=== PATIENT | male | born 1970 | race Caucasian/White ===

== ENCOUNTER 2024-06-08 23:06 | Inpatient (IN) | payer BC ==
[~2024-06-08] VITALS: Ht 165.1 cm; Wt 70.9 kg
--- NOTE | 2024-06-08 23:37 | ERN ---
General Chief Complaint: Nausea,Vomiting,Diarrhea Stated Complaint: N/V X 2 DAYS, BLACK STOOLS, BLACK GROUND EMESIS Time Seen by MD: 23:20 Source: patient History of Present Illness Initial Comments Patient is a 53-year-old male coming in to be evaluated for multiple complaints. Patient states that he has been having nauseousness shortness of breath and vomiting. These symptoms have been ongoing for several days. He is here for further evaluation. He also states he has not been able to by his medication which include diuretics for his CHF. Allergies: Coded Allergies: No Known Drug Allergies (Unverified Allergy, Unknown, 06/09/24) Home Meds Reported Medications Folic Acid (Folvite) 1 Mg Tab, 1 TAB PO DAILY for 30 Days, #30 TAB 0 Refills 06/09/24 Losartan Potassium (Losartan Potassium) 25 Mg Tablet, 1 TAB PO DAILY for 30 Days, #30 TAB 0 Refills 06/09/24 Carvedilol (Carvedilol) 12.5 Mg Tablet, 1 TAB PO BID for 30 Days, #60 TAB 0 Refills 06/09/24 Furosemide (Furosemide) 40 Mg Tablet, 1 TAB PO DAILY for 30 Days, #30 TAB 0 Refills 06/09/24 ROS Dictation CONSTITUTIONAL: No chills, no fever, no weakness, no diaphoresis, no malaise. HEAD/FACE: No signs of trauma. EENT: No eye pain, no blurred vision, no tearing, no double vision, no ear pain, no ear discharge, no nose pain, no nasal congestion, no throat pain, no throat swelling, no mouth pain. RESPIRATORY: No cough, no orthopnea, SOB, no stridor, no wheezing. CARDIOVASCULAR: No chest pain, no edema, no palpitations, no syncope. GASTROINTESTINAL/ABDOMINAL: No abdominal pain, no constipation, no diarrhea, nausea, vomiting. GENITOURINARY: No abnormal discharge, no dysuria, no frequent urination, no hematuria. No complaints of pain in the genitals. MUSCULOSKELETAL: No back pain, no gout, no joint pain, no joint swelling, no muscle pain, no muscle stiffness, no neck pain. INTEGUMENTARY: No change in color, no change in hair/nails, no dryness, no lesion, no lumps, no rash. NEUROLOGICAL/PSYCH: No anxiety, not depressed, no emotional problem, no headache, no numbness, no pre-existing deficit, no history of seizures, no tremors, no weakness. HEMATOLOGIC/LYMPHATIC: Not anemic, no history of blood clots, no apparent bleeding, no bruising, glands not swollen. All Systems Negative, Except as Noted. Physical Exam Physical Exam Dictation VITAL SIGNS: Reviewed. GENERAL APPEARANCE: Alert, oriented x3, no acute distress, obese. HEAD AND FACE: Non-traumatic. EYES: PERRL, pink conjunctivas, eyelid no trauma, anterior chamber clear. EARS: Pinnas intact and no signs of trauma or erythema. Ear canals clear and no discharge. TMs no erythema. NOSE: No discharge, no bleeding. OROPHARYNX: Mouth normal, teeth no caries, tongue pink. Pharynx clear, no erythema. Tonsils no exudates, no abscesses noted. Mucous membrane moist. NECK: Supple, non-tender, no thyromegaly, no masses, no JVD, no bruits. BREAST: Deferred. CHEST: No tenderness, no crepitus, no paradoxical movement, no retractions. LUNGS: Clear, well-ventilated, symmetric, no rales, no wheezing, no rhonchi, no stridor, good breath sounds bilaterally. HEART: Regular rate, regular rhythm, no murmur, no gallops. VASCULAR: No peripheral edema. ABDOMEN: Soft, positive bowel sounds, nondistended, no guarding, nontender, no rebound, no masses no hepatomegaly, no splenomegaly, no Rodriguez's sign, no hernias. RECTAL: Deferred. GENITAL: Deferred. NEUROLOGICAL: Normal speech, gross motor function intact, gross sensory function intact. MUSCULOSKELETAL: Neck nontender, full range of motion, back nontender, full range of motion. EXTREMITIES: Nontender, full range of motion. SKIN: Color pink, dry, no turgor, no rash, no lacerations, no abrasions, no contusions. LYMPHATICS: Deferred. Results Laboratory and Microbiology Lab and Micro Result Laboratory Tests Test 06/08/24 00:00 06/08/24 23:45 06/09/24 00:23 06/09/24 00:55 Influenza Type A Antigen Negative For Type A Influenza Type B Antigen Negative For Type B SARS-CoV-2, RNA, NAAT NEGATIVE SARS CoV-2 White Blood Count 10.4 K/uL (4.8-10.8) Red Blood Count 3.19 MIL/uL (4.50-6.20) L Hemoglobin 11.6 g/dL (14.0-18.0) L Hematocrit 36.4 % (42-54) L Mean Corpuscular Volume 114.1 fL (79-99) H Mean Corpuscular Hemoglobin 36.4 pg (27.0-33.0) H Mean Corpuscular Hemoglobin Concent 31.9 g/dL (32.0-36.0) L Red Cell Distribution Width 11.9 % (11.0-15.5) Platelet Count 96 K/uL (130-400) L Mean Platelet Volume 10.7 fL (7.5-10.5) H Immature Granulocyte % (Auto) 1.4 % (0-1) H Neutrophils (%) (Auto) 85.6 % (40.0-77.0) H Lymphocytes (%) (Auto) 4.3 % (21.0-51.0) L Monocytes (%) (Auto) 8.1 % (3.0-13.0) Eosinophils (%) (Auto) 0.2 % (0.0-8.0) Basophils (%) (Auto) 0.4 % (0.0-5.0) Neutrophils # (Auto) 8.9 K/uL (1.8-7.7) H Lymphocytes # (Auto) 0.5 K/uL (1.0-4.8) L Monocytes # (Auto) 0.9 K/uL (0.1-1.0) Eosinophils # (Auto) 0.02 K/uL (0.00-0.70) Basophils # (Auto) 0.04 K/uL (0.00-0.20) Absolute Immature Granulocyte (auto 0.15 K/uL (0-1) Nucleated Red Blood Cells 0.0 % (0.0-0.19) White Cell Morphology Comment See comments Prothrombin Time 13.2 SEC (9.6-11.6) H Prothromb Time International Ratio 1.20 (0.85-1.15) H Activated Partial Thromboplast Time 31.3 SEC (26.3-35.5) Sodium Level 138 mmol/L (136-145) Potassium Level 3.8 mmol/L (3.5-5.1) Chloride Level 95 mmol/L (101-111) L Carbon Dioxide Level 7 mmol/L (21-32) *L Blood Urea Nitrogen 9 mg/dL (7-18) Creatinine 1.2 mg/dL (0.5-1.3) Glomerular Filtration Rate Calc 71 mL/min (>90) Random Glucose 139 mg/dL (70-105) H Total Calcium 7.7 mg/dL (8.5-10.1) L Magnesium Level 1.50 mg/dL (1.80-2.40) L Total Creatine Kinase 172 U/L (21-232) Troponin I High Sensitivity 441 ng/L (4-75) *H B-Type Natriuretic Peptide 957 pg/mL (0-100) H Blood Gas Specimen Type Arterial Arterial Blood pH 7.133 (7.350-7.450) Arterial Blood Partial Pressure CO2 < 15 mmHg (35-48) *L Arterial Blood Partial Pressure O2 255.8 mmHg (83.0-108.0) H Arterial Blood HCO3 4.0 mmol/L (21.0-28.0) L Arterial Blood Oxygen Saturation 99.4 % (94.0-98.0) H Arterial Blood Base Excess -22.8 mmol/L (-2.0-3.0) L Hemoglobin (Blood Gas) 12.1 g/dL (13.5-17.5) L Sodium (Blood Gas) 135 MMOL/L (136-145) L Bedside Potassium (Blood Gas) 3.8 MMOL/L (3.4-4.5) Bedside Chloride (Blood Gas) 103 MMOL/L (98-107) Bedside Glucose (Blood Gas) 128 MG/DL (65-95) H Bedside Ionized Calcium (Blood Gas) 1.14 MMOL/L (1.15-1.33) L Bedside Lactic Acid (Blood Gas) 2.46 MMOL/L (0.36-0.75) H Blood Gas Temperature 37.0 CELSIUS (35.5-37.0) Blood Gas Flow-by 25.00 L/min (0.00-15.00) H Blood Gas Vent Mode NRB (ROOM AIR) FiO2 100.0 % Blood Gas Specimen Comment RR RN Urine Color LIGHT-YELLOW (YELLOW) Urine Appearance CLEAR (CLEAR) Urine pH 6.0 (5.0-8.0) Urine Specific [place] 1.012 (1.001-1.031) Urine Protein 50 mg/dL (NEGATIVE) H Urine Glucose (UA) NEGATIVE mg/dL (NEGATIVE) Urine Ketones 150 mg/dL (NEGATIVE) H Urine Occult Blood MODERATE (NEGATIVE) H Urine Nitrate NEGATIVE (NEGATIVE) Urine Bilirubin NEGATIVE mg/dL (NEGATIVE) Urine Urobilinogen 0.2 mg/dL (0.2-1.0) Urine Leukocyte Esterase NEGATIVE Melchor/uL Urine RBC 2-5 /HPF (0-1) H Urine WBC 6-10 /HPF (0-1) H Urine Bacteria FEW /HPF (None Seen) Urine Hyaline Casts 2-5 /LPF (0-1 /LPF) H Urine Opiates Screen NEGATIVE (NEGATIVE) Urine Barbiturates Screen NEGATIVE (NEGATIVE) Urine Phencyclidine Screen NEGATIVE (NEGATIVE) Urine Amphetamines Screen NEGATIVE (NEGATIVE) Urine Benzodiazepines Screen NEGATIVE (NEGATIVE) Urine Cocaine Screen NEGATIVE (NEGATIVE) Urine Marijuana (THC) Screen POSITIVE (NEGATIVE) H Test 06/09/24 01:06 06/09/24 01:39 06/09/24 02:11 Blood Gas Specimen Type Arterial Arterial Arterial Blood pH 7.164 (7.350-7.450) 7.147 (7.350-7.450) Arterial Blood Partial Pressure CO2 < 15 mmHg (35-48) *L < 15 mmHg (35-48) *L Arterial Blood Partial Pressure O2 362.1 mmHg (83.0-108.0) 377.9 mmHg (83.0-108.0) Arterial Blood HCO3 5.2 mmol/L (21.0-28.0) L 5.0 mmol/L (21.0-28.0) L Arterial Blood Oxygen Saturation 99.6 % (94.0-98.0) H 99.6 % (94.0-98.0) H Arterial Blood Base Excess -21.2 mmol/L (-2.0-3.0) L -21.7 mmol/L (-2.0-3.0) L Hemoglobin (Blood Gas) 12.1 g/dL (13.5-17.5) L 12.0 g/dL (13.5-17.5) L Sodium (Blood Gas) 138 MMOL/L (136-145) 137 MMOL/L (136-145) Bedside Potassium (Blood Gas) 3.7 MMOL/L (3.4-4.5) 3.6 MMOL/L (3.4-4.5) Bedside Chloride (Blood Gas) 102 MMOL/L (98-107) 101 MMOL/L (98-107) Bedside Glucose (Blood Gas) 140 MG/DL (65-95) H 163 MG/DL (65-95) H Bedside Ionized Calcium (Blood Gas) 1.11 MMOL/L (1.15-1.33) L 1.12 MMOL/L (1.15-1.33) L Bedside Lactic Acid (Blood Gas) 2.72 MMOL/L (0.36-0.75) H 2.38 MMOL/L (0.36-0.75) H Blood Gas Temperature 37.0 CELSIUS (35.5-37.0) 37.0 CELSIUS (35.5-37.0) Blood Gas Respiration Rate 19.0 min. 18.0 min. Blood Gas Vent Mode BIPAP 10,5 (ROOM AIR) BIPAP 10,5 (ROOM AIR) FiO2 70.0 % 70.0 % Blood Gas Specimen Comment RR RN RR RN Troponin I High Sensitivity 600 ng/L (4-75) *H Salicylates Level < 2.8 mg/dL (2.8-20.0) L Labs Reviewed?: Yes EKG/XRAY/US/CT/MRI EKG Comment 06/08/2024 time 11:38 p.m. Ventricular rate 130 Sinus tachycardia [place] [address] wave elevation or depression X-RAY Comment Chest [id number] infiltrates bilaterally MDM MDM: Differential diagnosis: Sepsis, ACS, acidosis, metabolic acidosis, on BiPAP, Rationale: Tests considered and ordered secondary to shared decision making include: labs, ECG and radiology Previous outside records reviewed: Old ER visits. Risk of complication and/or morbidity or mortality of patient management: None Medications-Per medication reconciliation Need for hospitalization: Patient does meet criteria for hospitalization. Need for emergency major/minor surgery: No There are no social concerns with this patient. Prescription drug management Prescriptions will include symptomatic care Patient's prior external medical records from other ER visits were reviewed by me as indicated. Prior testing and results from previous visits were reviewed. Prior tests were taken into account with medical decision making and resource utilization, independent historian/historians were used to obtain complete me dical history. I independently interpreted the test that were performed, results were reviewed by me and considered findings on radiology if ordered. Medical management and examination interpretation discussions were had by me with other qualified healthcare professionals as indicated for the patient's care. Patient is a 53-year-old gentleman coming in with multiple complaints. Patient states that he was not taking his medications for several months. Some of these include diuretics. Patient states that he has been having nauseousness and vomiting for several days. He did describe dark vomiting emesis and several locations. Vital signs are tachycardic. Patient states he does not has a history of liver cirrhosis. Patient was placed on BiPAP ABGs were improving. Patient will be admitted under the care of hospitalist group for ongoing management. ED Course Orders Procedure Category Date Status Time Cbc With Differential LAB 06/08/24 Complete 23:32 Prothrombin Time With LAB 06/08/24 Complete INR 23:32 B-Type Natriuretic LAB 06/08/24 Complete Peptide 23:32 Chest 1vw RAD 06/08/24 Taken 23:32 12 Lead Ekg Tracing- EKG 06/08/24 Logged Technical 23:32 Magnesium LAB 06/08/24 Complete 23:32 Creatine Kinase, Total LAB 06/08/24 Complete 23:32 Troponin I High LAB 06/08/24 Complete Sensitivity 23:32 Urinalysis Profile LAB 06/08/24 Complete 23:32 Partial LAB 06/08/24 Complete Thromboplastin Time 23:32 Basic Metabolic Panel LAB 06/08/24 Complete 23:32 Covid Rna Naat LAB 06/08/24 Complete 23:32 Influenza Type A & B, LAB 06/08/24 Complete Rapid 23:32 Drug Screen Urine LAB 06/08/24 Complete 23:32 Chest 1vw RAD 06/09/24 Taken 00:15 Furosemide 40mg Vial PHA 06/09/24 Complete (Lasix 40mg Vial) 00:30 Arterial Blood Gas LAB 06/09/24 Complete Arterial + 00:23 Magnesium 2gm Premix PHA 06/09/24 Complete 50ml (Magnesium 2gm 00:24 Arterial Blood Gas + RT 06/09/24 Transmitted 00:29 Diazepam 5 Mg/Ml 2 Ml PHA 06/09/24 Complete Syg (Valium 5 Mg/M 00:30 Dextrose 5%-Water PHA 06/09/24 In Process (... W/Sodium Bicarb 8 00:30 Sodium Bicarb 50meq PHA 06/09/24 Complete 50ml Vial (Sodium Bi 00:30 Sodium Bicarb 50meq PHA 06/09/24 Complete 50ml Vial (Sodium Bi 00:35 Diazepam 5 Mg/Ml 2 Ml PHA 06/09/24 Complete Syg (Valium 5 Mg/M 00:36 Ct Chest Pe Protocol CT 06/09/24 Logged Wwo Cont 00:39 Troponin I High LAB 06/09/24 Complete Sensitivity 00:40 Nurse Driven Gomez CHAVO 06/09/24 In Process Removal Pro 00:58 Magnesium 2gm Premix PHA 06/09/24 In Process 50ml (Magnesium 2gm 01:00 Arterial Blood Gas + RT 06/09/24 Transmitted 01:03 Arterial Blood Gas LAB 06/09/24 Complete Arterial + 01:06 Culture Urine VANDANA 06/09/24 In Process 01:43 Arterial Blood Gas + RT 06/09/24 Transmitted 02:00 Arterial Blood Gas LAB 06/09/24 Complete Arterial + 02:11 Salicylate LAB 06/09/24 Complete 02:14 Heparin 25,000 PHA 06/09/24 In Process Units/250ml D5w 03:30 Heparin 5,000 Unit PHA 06/09/24 Complete Vial (Heparin 5,000 U 03:30 Pt And Ptt LAB 06/09/24 Logged 09:30 Pantoprazole 40mg Inj PHA 06/09/24 In Process (Protonix 40mg Inj 04:00 Pantoprazole 40mg Inj PHA 06/09/24 In Process (Protonix 40mg Inj 04:00 Current Medications Medications (Trade) Dose Ordered Sig/Quan Route PRN Reason Start Time Stop Time Status Last Admin Dose Admin Diazepam (VALium 5 MG/ML 2 ML SYG) 5 mg ONCE ONCE IVP 06/09/24 00:30 06/09/24 00:36 DC 06/09/24 00:58 Diazepam (VALium 5 MG/ML 2 ML SYG) 10 mg STK-MED ONCE .ROUTE 06/09/24 00:36 06/09/24 00:37 DC Furosemide (LASix 40MG VIAL) 40 mg ONCE ONCE IV 06/09/24 00:30 06/09/24 00:31 DC 06/09/24 00:55 Heparin Sodium (Porcine) (HEParin 5,000 UNIT VIAL) 5,000 unit ONCE ONCE IV 06/09/24 03:30 06/09/24 03:31 DC 06/09/24 03:27 Heparin Sodium/ Dextrose 250 ml @ 0 mls/hr PROTOCOL IV 06/09/24 03:30 07/09/24 03:29 06/09/24 03:31 Magnesium Sulfate 50 ml @ 0 mls/hr PROTOCOL PRN IV OTHER [SEE ORDER COMMENTS] 06/09/24 01:00 07/09/24 00:59 06/09/24 01:03 Magnesium Sulfate 50 ml @ As Directed STK-MED ONCE IV 06/09/24 00:24 06/09/24 00:29 DC Pantoprazole Sodium (PROTonix 40MG INJ) 40 mg ONCE ONCE IVP 06/09/24 04:00 06/09/24 04:01 Pantoprazole Sodium 80 mg/ Sodium Chloride 100 ml @ 10 mls/hr Q10H IVP 06/09/24 04:00 07/09/24 03:59 Sodium Bicarbonate 150 meq/Dextrose 1,150 ml @ 150 mls/hr Q7H40M IVP 06/09/24 00:30 07/09/24 00:29 06/09/24 01:18 Sodium Bicarbonate 50 ml @ As Directed STK-MED ONCE .ROUTE 06/09/24 00:35 06/09/24 00:36 DC Sodium Bicarbonate (Sodium Bicarb 50meq 50ml Vial) 50 meq ONCE ONCE IV 06/09/24 00:30 06/09/24 00:36 DC 06/09/24 00:56 Vital Signs Date Time Temp Pulse Resp B/P (MAP) Pulse Ox O2 Delivery O2 Flow Rate FiO2 06/09/24 02:11 40 06/09/24 01:29 134 28 136/86 100 Bi-PAP+ 75 06/09/24 00:31 133 23 70 06/09/24 00:12 96.1 140 40 146/93 98 Room Air* 0 21 06/08/24 23:34 98.4 132 18 134/87 98 06/08/24 23:34 130 18 134/87 98 Room Air* 0 21 DX & DISP Disposition: Inpatient Decision to Admit Time: 03:55 Departure Impression: Primary Impression: Sepsis Additional Impressions: Metabolic acidosis, BiPAP (biphasic positive airway pressure) dependence, Cannabis abuse Condition: Stable NICOLE SOSA MD Jun 08, 2024 23:37
[2024-06-08 23:58] LABS: BASOPHILS # (AUTO) 0.04 K/uL (0.00-0.20); BASOPHILS % (AUTO) 0.4 % (0.0-5.0); EOSINOPHILS # (AUTO) 0.02 K/uL (0.00-0.70); EOSINOPHILS % (AUTO) 0.2 % (0.0-8.0); HEMATOCRIT 36.4 % (42-54); IMMATURE GRANULOCYTE ABSOLUTE 0.15 K/uL (0-1); LYMPHOCYTES # (AUTO) 0.5 K/uL (1.0-4.8); LYMPHOCYTES % (AUTO) 4.3 % (21.0-51.0); MEAN CORPUSCULAR HEMOGLOBIN 36.4 pg (27.0-33.0); MEAN CORPUSCULAR HGB CONC 31.9 g/dL (32.0-36.0); MEAN CORPUSCULAR VOLUME 114.1 fL (79-99); MONOCYTES # (AUTO) 0.9 K/uL (0.1-1.0); MONOCYTES % (AUTO) 8.1 % (3.0-13.0); NEUTROPHILS # (AUTO) 8.9 K/uL (1.8-7.7); NEUTROPHILS % (AUTO) 85.6 % (40.0-77.0); PLATELET COUNT (AUTO) 96 K/uL (130-400); RED BLOOD CELL COUNT(AUTO) 3.19 MIL/uL (4.50-6.20); RED CELL DISTRIBUTION WIDTH 11.9 % (11.0-15.5); WHITE BLOOD COUNT (AUTO) 10.4 K/uL (4.8-10.8)
[2024-06-09] VITALS (47 sets, daily range): BP systolic 93–117; BP diastolic 51–69; PULSE 99–145; RESP 22–25; TEMP 98.1–100.4; O2SAT 93–100
[2024-06-09 00:10] LABS: CREATININE 1.2 mg/dL (0.5-1.3); MAGNESIUM 1.5 mg/dL (1.80-2.40); POTASSIUM 3.8 mmol/L (3.5-5.1)
--- NOTE | 2024-06-09 00:10 | NUR ---
PATIENT MOVED FROM HALLWAY B TO ROOM 13
[2024-06-09 00:11] LABS: INR 1.2 (0.85-1.15); PARTIAL THROMBOPLASTIN TIME 31.3 SEC (26.3-35.5); PROTHROMBIN TIME 13.2 SEC (9.6-11.6)
--- NOTE | 2024-06-09 00:11 | NUR ---
ASSUMED PT CARE AT THIS TIME
[2024-06-09 00:17] LABS: SARS-CoV-2, RNA, NAAT NEGATIVE SARS CoV-2 (NEGATIVE)
[2024-06-09 00:21] LABS: INFLUENZA TYPE A Negative For Type A (NEGATIVE); INFLUENZA TYPE B Negative For Type B (NEGATIVE)
[2024-06-09 00:24] LABS: ABG BASE EXCESS -22.8 mmol/L (-2.0-3.0); ABG OXYGEN SATURATION 99.4 % (94.0-98.0); ABG PCO2 < 15 mmHg (35-48); ABG PH 7.133 (7.350-7.450); CARBON MONOXIDE 0 % (0.5-1.5); DEVICE COMMENT RR RN; HHb 0.6; PO2, ARTERIAL BG 255.8 mmHg (83.0-108.0); VENT MODE, BG NRB (ROOM AIR)
[2024-06-09 00:42] LABS: B-TYPE NATRIURETIC PEPTIDE 957 pg/mL (0-100)
--- NOTE | 2024-06-09 00:49 | NUR ---
BIPAP SETTINGS; 10/5, 18, FIO2 75%
[2024-06-09] MEDS: furoSEMIDE 40MG VIAL IV ONE (00:55)
[2024-06-09] MEDS: SODIUM BICARB 50MEQ 50ML VIAL IV ONE ×2 (00:56→11:20)
[2024-06-09] MEDS: diazePAM 5 MG/ML 2 ML SYG IVP ONE (00:58)
[2024-06-09] MEDS: MAGNESIUM 2GM PREMIX 50ML 50 ML IV PRN (01:03)
[2024-06-09 01:07] LABS: ABG BASE EXCESS -21.2 mmol/L (-2.0-3.0); ABG HCO3 5.2 mmol/L (21.0-28.0); ABG OXYGEN SATURATION 99.6 % (94.0-98.0); ABG PCO2 < 15 mmHg (35-48); ABG PH 7.164 (7.350-7.450); CARBON MONOXIDE 0.3 % (0.5-1.5); DEVICE COMMENT RR RN; HHb 0.4; PO2, ARTERIAL BG 362.1 mmHg (83.0-108.0)
[2024-06-09] MEDS: SODIUM BICARB 8.4% 50ML SYRING 150 MEQ in DEXTROSE 5%-WATER 1,000 ML IVP SCH (01:18)
[2024-06-09] MEDS: MAGNESIUM 2GM PREMIX 50ML 50 ML IV ONE (01:22)
[2024-06-09] MEDS: SODIUM BICARB 50MEQ 50ML VIAL 0 ML ONE (01:22)
[2024-06-09] MEDS: diazePAM 5 MG/ML 2 ML SYG ONE (01:23)
[2024-06-09 01:36] LABS: APPEARANCE,URINE CLEAR (CLEAR); BILIRUBIN,URINE NEGATIVE (NEGATIVE); COLOR,URINE LIGHT-YELLOW (YELLOW); GLUCOSE, URINE (UA) NEGATIVE (NEGATIVE); KETONES,URINE 150 mg/dL (NEGATIVE); LEUKOCYTE ESTERASE ,URINE NEGATIVE Leu/uL (NEGATIVE); NITRATE,URINE NEGATIVE (NEGATIVE); OCCULT BLOOD,URINE MODERATE (NEGATIVE); PROTEIN,URINE 50 mg/dL (NEGATIVE); UROBILINOGEN,URINE 0.2 mg/dL (0.2-1.0)
[2024-06-09 01:37] LABS: ADD UA MICROSCOPIC YES
--- NOTE | 2024-06-09 01:41 | NUR ---
per RN Bronson pt unstable and will update when pt is ready
[2024-06-09 01:42] LABS: BACTERIA,URINE FEW /HPF (None Seen); MUCUS,URINE RARE LPF (None Seen)
[2024-06-09 01:48] LABS: AMPHET/METH SCREEN,URINE NEGATIVE (NEGATIVE); BARBITURATE SCREEN, URINE NEGATIVE (NEGATIVE); BENZODIAZEPINES SCREEN,URINE NEGATIVE (NEGATIVE); CANNABINOID SCREEN,URINE POSITIVE (NEGATIVE); COCAINE SCREEN,URINE NEGATIVE (NEGATIVE); OPIATE SCREEN,URINE NEGATIVE (NEGATIVE); PHENCYCLIDINE SCREEN,URINE NEGATIVE (NEGATIVE)
[2024-06-09 02:12] LABS: ABG BASE EXCESS -21.7 mmol/L (-2.0-3.0); ABG OXYGEN SATURATION 99.6 % (94.0-98.0); ABG PCO2 < 15 mmHg (35-48); ABG PH 7.147 (7.350-7.450); CARBON MONOXIDE 0 % (0.5-1.5); DEVICE COMMENT RR RN; HHb 0.4; PO2, ARTERIAL BG 377.9 mmHg (83.0-108.0)
[2024-06-09] MEDS: HEParin 5,000 UNIT VIAL IV ONE (03:27)
[2024-06-09] MEDS: HEParin 25,000 UNITS/250ML D5W 250 ML IV SCH (03:31)
[2024-06-09] MEDS ORDERED: FOLI1 PO (03:41)
[2024-06-09] MEDS ORDERED: CARV12.511 PO (03:41)
[2024-06-09] MEDS ORDERED: LOSA25TA41 PO (03:41)
[2024-06-09] MEDS ORDERED: FURO40TA5 PO (03:41)
--- NOTE | 2024-06-09 03:53 | NUR ---
HEPARIN DRIP STOPPED AT THIS TIME ORDERED BY ED .
--- NOTE | 2024-06-09 04:05 | NUR ---
YARELY PENSION ADVISER AT BEDSIDE AT THIS TIME
[2024-06-09] MEDS: octREOtide aceTATe 100 MCG/ML AMP IV ONE (04:26)
[2024-06-09] MEDS: PANTOPrazole 40 MG/VIAL IVP ONE (04:26)
[2024-06-09] MEDS: PANTOPrazole 40MG INJ 80 MG in 0.9%NACL 100ML 100 ML IVP SCH (04:26)
[2024-06-09 05:02] LABS: CREATININE 1.2 mg/dL (0.5-1.3); POTASSIUM 3.1 mmol/L (3.5-5.1)
[2024-06-09] MEDS: 0.9%NACL 1000ML 1,000 ML IV ONE ×2 (05:03)
[2024-06-09 05:10] LABS: INR 1.72 (0.85-1.15); PROTHROMBIN TIME 18.3 SEC (9.6-11.6)
[2024-06-09 05:30] LABS: PARTIAL THROMBOPLASTIN TIME > 139.0 SEC (26.3-35.5)
[2024-06-09] MEDS: octREOtide aceTATe 500 MCG in 0.9%NACL 100ML 97.5 ML IV SCH (05:50)
--- NOTE | 2024-06-09 06:13 | NUR ---
PATIENT REPORTED INCREASE IN SHORTNESS OF BREATH, RESPIRATORY DISTRESS NOTED, ED MD AT BEDSIDE
--- NOTE | 2024-06-09 06:15 | NUR ---
RSI INTUBATION NOTE 100MG OF KETAMINE IVP @0613 50MG OF ROCCUROMIUM @0614 PATIENT INTUBATED 7.5 ETT @26CM AT THE TEETH 16F OG TUBE INSERTED
--- NOTE | 2024-06-09 06:28 | EKG ---
[facility] Test Date: 2024-06-08 Test Time: 23:38:24 Pat Name: CHRIS CHOI Department: [facility] Room: 206 Gender: M Lapidarist: [id number] : 1970 Requested By: NICOLE SOSA Order Number: [id number] Reading MD: Inderjit Haile Measurements Intervals [place] Rate: 130 P: 71 GA: 124 QRS: 38 QRSD: 103 T: 106 QT: 338 QTc: 498 Interpretive Statements Sinus tachycardia Nonspecific repol abnormality, lateral leads No previous ECG available for comparison Electronically Signed On 06-09-2024 19:43:26 FITNESS PLAN COORDINATOR by Inderjit Haile Please click the below link to view image of tracing.
[2024-06-09] MEDS ORDERED: levoFLOXacin 750 MG/D5W 150ML BAG IV SCH (06:30)
[2024-06-09] MEDS ORDERED: PHARMACY COMMUNICATION MISC ONE (06:30)
--- NOTE | 2024-06-09 06:32 | NUR ---
CRITICAL CARE CONSULT DONE AT THIS TIME
[2024-06-09] MEDS: ketaMINE 50MG/ML SYRINGE 50 MG/ML DISP.SYRIN IM ONE (06:33)
[2024-06-09] MEDS: FENTanyl 1000MCG+NS 100ML 100 ML IV ONE (06:34)
[2024-06-09] MEDS: ketaMINE 50MG/ML SYRINGE 50 MG/ML DISP.SYRIN ONE (06:34)
[2024-06-09] MEDS: NOREPINEPHRIN 4MG/NS 250ML 250 ML IV ONE ×2 (06:34→13:12)
[2024-06-09] MEDS: rocuRONium bROMide 10MG/1ML 5ML VL ONE (06:34)
[2024-06-09] MEDS: FENTanyl 1000MCG+NS 100ML 100 ML IV SCH (06:39)
[2024-06-09] MEDS: VASOpressin 20 UNITS/ML 1ML VIAL ONE (06:42)
--- NOTE | 2024-06-09 06:46 | EKG ---
[facility] Test Date: 2024-06-09 Test Time: 00:00:12 Pat Name: CHRIS CHOI Department: [facility] Room: 206 Gender: M Director [employer]: [id number] : 1970 Requested By: NICOLE SOSA Order Number: [id number] Reading MD: Inderjit Haile Measurements Intervals [place] Rate: 84 P: 0 HI: 0 QRS: -4 QRSD: 91 T: 0 QT: 396 QTc: 468 Interpretive Statements Atrial fibrillation Nonspecific T abnormalities, lateral leads Compared to ECG 06/08/2024 23:38:24 Myocardial infarct finding now present T-wave abnormality now present Sinus tachycardia no longer present Early repolarization no longer present Electronically Signed On 06-09-2024 19:43:50 METALLURGICAL SPECIALIST by Inderjit Haile Please click the below link to view image of tracing.
--- NOTE | 2024-06-09 06:59 | HP ---
[facility] Date of Service: Jun 09, 2024 Time of Service: 05:57 PCP : Self referral HISTORY OF PRESENT ILLNESS: This is a 53-year-old male past medical history of hypertension and CHF who was brought by EMS to the ED for complaints of persistent nausea,vomiting and shortness of breath and symptoms have been ongoing for 3 days and patient reports he has nopt been able to take his medication due to above reasons.Patient states he drinks Vodka 2 shots per night and last consumption was 3 days ago. While in the ER patient's shortness of breath became worse that he needed to be placed on Bipap..Upon ER arrival V/S T98.4,HR130, respiration 18 and BP 134/87 Sat98% RA. Seen and examined patient in the ER on Bipap,heparin and Sodium bicarb drip.Patient is awake,alert and coherent .Patient reports having abdominal pain located around mid abdomen and states he has passed black stool today. Patient denies fever,chills,sorethroat,chest pain and palpitation .Latest vital signs temperature 97.2, heart rate 128, respiration 28, blood pressure 142/85 saturation 97% on BiPAP 40% FiO2. Labs: WBC 10.24, neutrophils 85.6, hemoglobin 11.6, hematocrit 36.4 platelet count 96. Sodium 138, potassium 3.8, chloride 95, CO2 seven, GFR 71, glucose 139 total calcium 7.7 magnesium 1.5 BNP 957. Troponin 441 to 600 to 678. Urine toxicology positive with marijuana. Urinalysis remarkable for protein, ketones, urine occult blood, urine RBC 2-5, urine WBC 6-10 urine bacteria few and hyaline casts 2-5. Fecal occult blood negative. EKG result revealed sinus tachycardia heart rate 124 Influenza a and B negative SARs COVID negative. Chest x-ray official result is still pending at this time as per ER initial reading infiltrates bilateral concerning for pneumonia. While in the ER patient received Protonix 40 mg IV, heparin IV and drip, Valium 10 mg IV, sodium bicarb drip at 150 mL/hour, sodium bicarb, Lasix 40 mg IV and magnesium sulfate.As per ER MD,Heparin drip will be stopped since patient is being suspected for GI bleed Sandostatin and Protonix drip are going to be started.We will admit patient in ICU for further medical management. Addendum @ around 0600 the undersigned was notified that patient is going to be intubated by ER . REVIEW OF SYSTEMS CONSTITUTIONAL: Denies fevers, chills, or night sweats. No unintentional weight loss reported. NEUROLOGICAL: Denies headache, amaurosis fugax, motor weakness, sensory deficit, vertigo/spinning sensation, gait abnormalities, or tremors. ENT: No hearing loss, otalgia, otorrhea, rhinitis, rhinorrhea, hoarseness, or sore throat. CARDIOVASCULAR: Denies any exertional angina, dyspnea on exertion, orthopnea, paroxysmal nocturnal dyspnea, palpitations, life-threatening arrhythmias, claudication. PULMONARY: Denies any shortness of breath, cough, phlegm/sputum, hemoptysis, pleuritic chest pain. SLEEP: Denies morning headaches, daytime somnolence or napping. Denies difficulty falling asleep, staying asleep, waking from sleep. Denies knowledge of snoring. GASTROINTESTINAL: Complains of nausea , vomiting , dark stool and abdominal pain Denies any type of dysphagia to either liquids or solids. Denies pyrosis, early satiety, diarrhea, constipation, or changes in stool consistency or caliber. Denies coffee-ground emesis, hematemesis, GENITOURINARY: Denies frequency, urgency, nocturia, hematuria or incontinence (Storage/Irritative symptoms.) Low urinary stream, straining to void, urinary intermittency or hesitancy, splitting of the voiding stream, terminal dribbling. ENDOCRINOLOGIC: Denies polyuria, polydipsia, polyphagia or heat/cold intolerances. HEMATOLOGIC: Denies thrombophilia/previous clots, or coagulopathy/bleeding disorders. ONCOLOGIC: Denies personal history of malignancy. DERMATOLOGIC: Denies rashes or pruritus. PSYCHIATRIC: Denies any suicidal or homicidal ideation. Denies hallucinations. PAST MEDICAL HISTORY: [ Hypertension and CHF] PAST SURGICAL HISTORY: [ Patient denies ] PAST SOCIAL HISTORY: [ Patient lives alone. Patient admits to smoking marijuana and drinking vodka two shots per night last consumption was three days ago. Patient denies cocaine use] FAMILY HISTORY: [ Noncontributory ] Coded Allergies: No Known Drug Allergies (Unverified Allergy, Unknown, 06/09/24) PHYSICAL EXAM GENERAL APPEARANCE: The patient is awake, alert, and oriented, in no acute cardiopulmonary distress. NEUROLOGICAL: Cranial nerves II-XII grossly intact. Motor is 5/5 in bilateral upper and lower extremities proximal to distal. No sensory deficits. HEENT: Face is symmetric. Pupils are equal and reactive. Extraocular movements are intact. NECK: Supple. No JVD. No thyromegaly. No submental, submandibular, pre- /postauricular, occipital or supraclavicular lymphadenopathy. CHEST: Normal chest expansion. No Telemetry. LUNGS: Decreased bilateral breath sounds on the lower bases per auscultation CARDIOVASCULAR: Tachycardic Regular. S1 and S2 normal. No appreciable rubs, murmurs or gallops. ABDOMEN: Soft, nontender, and nondistended. There is no rebound, voluntary guarding, or rigidity. : Deferred. Gomez. EXTREMITIES: Non-edematous and not cyanotic. No clubbing. Good capillary refill. SKIN: No skin breakdown. Vital Sign (Last 24 Hours) 06/09/24 06/09/24 00:12 04:41 Temp 97.2 Pulse 128 Resp 28 B/P (MAP) 142/85 Pulse Ox 97 O2 Delivery Bi-PAP+ O2 Flow Rate 0 FiO2 40 LABS: Laboratory: Test 06/09/24 04:37 06/09/24 03:54 06/09/24 02:11 06/09/24 01:39 Range/Units Prothrombin Time 18.3 #H 9.6-11.6 SEC Prothromb Time International Ratio 1.72 H 0.85-1.15 Activated Partial Thromboplast Time > 139.0 #*H 26.3-35.5 SEC Sodium Level 144 136-145 mmol/L Potassium Level 3.1 L 3.5-5.1 mmol/L Chloride Level 100 L 101-111 mmol/L Carbon Dioxide Level 9 *L 21-32 mmol/L Blood Urea Nitrogen 12 7-18 mg/dL Creatinine 1.2 0.5-1.3 mg/dL Glomerular Filtration Rate Calc 71 >90 mL/min Random Glucose 229 #H 70-105 mg/dL Total Calcium 7.5 L 8.5-10.1 mg/dL Magnesium Level 2.10 1.80-2.40 mg/dL Troponin I High Sensitivity 678 *H 4-75 ng/L Stool Occult Blood NEGATIVE NEGATIVE Blood Gas Specimen Type Arterial Arterial Blood pH 7.147 *L 7.350-7.450 Arterial Blood Partial Pressure CO2 < 15 *L 35-48 mmHg Arterial Blood Partial Pressure O2 377.9 *H 83.0-108.0 mmHg Arterial Blood HCO3 5.0 L 21.0-28.0 mmol/L Arterial Blood Oxygen Saturation 99.6 H 94.0-98.0 % Arterial Blood Base Excess -21.7 L -2.0-3.0 mmol/L Hemoglobin (Blood Gas) 12.0 L 13.5-17.5 g/dL Sodium (Blood Gas) 137 136-145 MMOL/L Bedside Potassium (Blood Gas) 3.6 3.4-4.5 MMOL/L Bedside Chloride (Blood Gas) 101 98-107 MMOL/L Bedside Glucose (Blood Gas) 163 H 65-95 MG/DL Bedside Ionized Calcium (Blood Gas) 1.12 L 1.15-1.33 MMOL/L Bedside Lactic Acid (Blood Gas) 2.38 H 0.36-0.75 MMOL/L Blood Gas Temperature 37.0 35.5-37.0 CELSIUS Blood Gas Respiration Rate 18.0 min. Blood Gas Vent Mode BIPAP 10,5 ROOM AIR FiO2 70.0 % Blood Gas Specimen Comment RR RN Salicylates Level < 2.8 L 2.8-20.0 mg/dL Test 06/09/24 00:55 06/09/24 00:23 06/08/24 23:45 06/08/24 00:00 Range/Units Urine Color LIGHT-YELLOW YELLOW Urine Appearance CLEAR CLEAR Urine pH 6.0 5.0-8.0 Urine Specific [place] 1.012 1.001-1.031 Urine Protein 50 H NEGATIVE mg/dL Urine Glucose (UA) NEGATIVE NEGATIVE mg/dL Urine Ketones 150 H NEGATIVE mg/dL Urine Occult Blood MODERATE H NEGATIVE Urine Nitrate NEGATIVE NEGATIVE Urine Bilirubin NEGATIVE NEGATIVE mg/dL Urine Urobilinogen 0.2 0.2-1.0 mg/dL Urine Leukocyte Esterase NEGATIVE NEGATIVE Melchor/uL Urine RBC 2-5 H 0-1 /HPF Urine WBC 6-10 H 0-1 /HPF Urine Bacteria FEW None Seen /HPF Urine Hyaline Casts 2-5 H 0-1 /LPF /LPF Urine Opiates Screen NEGATIVE NEGATIVE Urine Barbiturates Screen NEGATIVE NEGATIVE Urine Phencyclidine Screen NEGATIVE NEGATIVE Urine Amphetamines Screen NEGATIVE NEGATIVE Urine Benzodiazepines Screen NEGATIVE NEGATIVE Urine Cocaine Screen NEGATIVE NEGATIVE Urine Marijuana (THC) Screen POSITIVE H NEGATIVE Blood Gas Flow-by 25.00 H 0.00-15.00 L/min White Blood Count 10.4 4.8-10.8 K/uL Red Blood Count 3.19 L 4.50-6.20 MIL/uL Hemoglobin 11.6 L 14.0-18.0 g/dL Hematocrit 36.4 L 42-54 % Mean Corpuscular Volume 114.1 H 79-99 fL Mean Corpuscular Hemoglobin 36.4 H 27.0-33.0 pg Mean Corpuscular Hemoglobin Concent 31.9 L 32.0-36.0 g/dL Red Cell Distribution Width 11.9 11.0-15.5 % Platelet Count 96 L 130-400 K/uL Mean Platelet Volume 10.7 H 7.5-10.5 fL Immature Granulocyte % (Auto) 1.4 H 0-1 % Neutrophils (%) (Auto) 85.6 H 40.0-77.0 % Lymphocytes (%) (Auto) 4.3 L 21.0-51.0 % Monocytes (%) (Auto) 8.1 3.0-13.0 % Eosinophils (%) (Auto) 0.2 0.0-8.0 % Basophils (%) (Auto) 0.4 0.0-5.0 % Neutrophils # (Auto) 8.9 H 1.8-7.7 K/uL Lymphocytes # (Auto) 0.5 L 1.0-4.8 K/uL Monocytes # (Auto) 0.9 0.1-1.0 K/uL Eosinophils # (Auto) 0.02 0.00-0.70 K/uL Basophils # (Auto) 0.04 0.00-0.20 K/uL Absolute Immature Granulocyte (auto 0.15 0-1 K/uL Nucleated Red Blood Cells 0.0 0.0-0.19 % White Cell Morphology Comment See comments Total Creatine Kinase 172 21-232 U/L B-Type Natriuretic Peptide 957 H 0-100 pg/mL Influenza Type A Antigen Negative For Type A NEGATIVE Influenza Type B Antigen Negative For Type B NEGATIVE SARS-CoV-2, RNA, NAAT NEGATIVE SARS CoV-2 NEGATIVE Current Medications Medications (Trade) Dose Ordered Sig/Quan Route PRN Reason Start Time Stop Time Status Last Admin Dose Admin Heparin Sodium/ Dextrose 250 ml @ 0 mls/hr PROTOCOL IV 06/09/24 03:30 07/09/24 03:29 06/09/24 03:31 10.78 MLS/HR Magnesium Sulfate 50 ml @ 0 mls/hr PROTOCOL PRN IV OTHER [SEE ORDER COMMENTS] 06/09/24 01:00 07/09/24 00:59 06/09/24 01:03 25 MLS/HR Octreotide Acetate 500 mcg/ Sodium Chloride 100 ml @ 0 mls/hr PROTOCOL IV 06/09/24 04:30 07/09/24 04:29 06/09/24 05:50 5 MLS/HR Pantoprazole Sodium 80 mg/ Sodium Chloride 100 ml @ 10 mls/hr Q10H IVP 06/09/24 04:00 07/09/24 03:59 06/09/24 04:26 10 MLS/HR Sodium Bicarbonate 150 meq/Dextrose 1,150 ml @ 150 mls/hr Q7H40M IVP 06/09/24 00:30 07/09/24 00:29 06/09/24 01:18 150 MLS/HR DIAGNOSTICS / RADIOLOGY: [ ] ASSESSMENT: Acute respiratory failure POA Elevated troponin R/O ACS POA Metabolic acidosis POA Acute anemia POA Acute thrombocytopenia POA Acute on chronic CHF POA Hyperglycemia POA Hypomagnesemia POA Cannabis abuse POA Active alcohol drinker POA Suspected urinary tract infection POA Possible bilateral lung pneumonia POA Hypertension POA Suspected GI bleed POA PLAN: We will admit patient in ICU We will keep patient nothing by mouth We will start on Levaquin 750 mg IV daily We will continue on sodium bicarb drip Patient received Lasix 40 mg IV in the ER We will start Lasix 20 mg IV bid We will continue on Protonix and Sandostatin drip We will replace electrolytes as needed per protocol We will add prn medication for fever,pain,cough , nausea and vomiting We will reconcile home meds once medlist available We will trend troponin q.6 hours x3 We will hold off on anticoagulation as patient suspected for GI bleed We will seek critical care consultation and follow up recommendation We will seek Cardiology consultation and follow up recommendation We will request Gastric occult analysis and may defer GI consultation for dayshift MD We will request labs in am Further orders to follow depending on above results Case discussed with attending physician and came up with above treatment and plan of care. ADVANCED CARE PLANNING 1. Which of the following were discussed? Hospice Care - No Therapeutic options - Yes Advance Directives - No Other discussions - 2. Discussed with who? Patient 3. Voluntary nature of this service was explained to the patient? Yes 4. Amount of time spent - ___29____ 5. Reviewed by Physician? (if this service was performed by NPP) Yes Patient seen and examined by me. Agree with note by SURGERY TECH SEE ADDITIONAL ORDERS PER CHART DISCUSSED WITH NURSING STAFF RADHA PRITCHETT PUMP ERECTOR HELPER Jun 09, 2024 06:59
[2024-06-09] MEDS ORDERED: MAGNESIUM 2GM PREMIX 50ML 50 ML IV PRN ×2 (07:00→08:30)
[2024-06-09] MEDS ORDERED: PoTASSium chloRIDE 20MEQ/100ML 100 ML IV PRN ×2 (07:00→08:30)
[2024-06-09 07:33] LABS: HEMOGLOBIN A1C 4.6 % (4.0-6.0)
[2024-06-09 07:35] LABS: HEMATOCRIT 34.5 % (42-54); LYMPHOCYTES # (AUTO) 0.4 K/uL (1.0-4.8); LYMPHOCYTES % (AUTO) 33.9 % (21.0-51.0); MEAN CORPUSCULAR HEMOGLOBIN 36.5 pg (27.0-33.0); MEAN CORPUSCULAR HGB CONC 32.8 g/dL (32.0-36.0); MEAN CORPUSCULAR VOLUME 111.3 fL (79-99); MONOCYTES % (AUTO) 3.2 % (3.0-13.0); NEUTROPHILS # (AUTO) 0.8 K/uL (1.8-7.7); NEUTROPHILS % (AUTO) 62.9 % (40.0-77.0); NUCLEATED RED BLOOD CELLS 1.6 % (0.0-0.19); PLATELET COUNT (AUTO) 91 K/uL (130-400); RED CELL DISTRIBUTION WIDTH 11.8 % (11.0-15.5); WHITE BLOOD COUNT (AUTO) 1.2 K/uL (4.8-10.8)
[2024-06-09 07:46] LABS: ALBUMIN 2.4 g/dL (3.5-5.0); BILIRUBIN,TOTAL 2.1 mg/dL (0.2-1.0); CREATININE 1.2 mg/dL (0.5-1.3); MAGNESIUM 1.7 mg/dL (1.80-2.40); THYROID STIMULATING HORMONE 0.51 uIU/mL (0.36-3.74); TOTAL PROTEIN, SERUM 5.4 g/dL (6.0-8.3)
[2024-06-09 08:01] LABS: ABG BASE EXCESS -16.8 mmol/L (-2.0-3.0); ABG HCO3 10.6 mmol/L (21.0-28.0); ABG OXYGEN SATURATION 85.7 % (94.0-98.0); ABG PCO2 30 mmHg (35-48); CARBON MONOXIDE 0.3 % (0.5-1.5); DEVICE COMMENT LR LARRY; HHb 14.2; PO2, ARTERIAL BG 57.7 mmHg (83.0-108.0); VENT MODE, BG AC-VC (ROOM AIR)
[2024-06-09 08:03] LABS: POTASSIUM 2.9 mmol/L (3.5-5.1)
[2024-06-09] MEDS: MIDAZOLAM 100MG-0.9% NS 100ML 100ML BAG IV ONE (08:17)
[2024-06-09] MEDS: VASOpressin 20 UNITS/ML 1ML Vi 20 UNITS in 0.9%NACL 100ML 100 ML IV SCH (08:20)
[2024-06-09] MEDS ORDERED: PoTASSium chloRIDE 20MEQ ER 20 MEQ ERTAB PO PRN (08:30)
--- NOTE | 2024-06-09 08:37 | CONS ---
[facility] CONSULTATION NOTE Date Patient Seen: Jun 09, 2024 Time of Visit: 08:36 Supervising Physician: Dr Duane Chacko MD Reason for Consultation: Critical care Management Primary Care Physician: Self Referral, Outpatient Specialists: Inpatient Consults: Dr Mena. GABBY, Dr Hill PROBLEM LIST: Septic shock Bilateral lower lobe bacterial pneumonia, POA Acute complicated cystitis, POA Acute hypoxemic respiratory failure, POA Acute hepatic encephalopathy, POA Suspected liver cirrhosis, POA Multifactorial metabolic acidosis 2/2, (lactic acidosis, DKA, CATERINA) POA NSTEMI type 2, 2/2 supply and demand mismatch POA Suspected Acute on chronic diastolic congestive heart failure POA GI bleed, POA Pancytopenia, POA Electrolyte derangement (Hypokalemia, hypomagnesemia, hypochloremia) Moderate hypoalbuminemia Elevated D-dimer of 3989, Pending DVT rule out, Well score for PE 3 ( Moderate score) Positive for THC Hyperglycemia POA Hypomagnesemia POA Active alcohol drinker POA HPI: This is a 53-year-old male with past medical history of hypertension, CHF and alcohol abuse who presented to the ED for evaluation of persistent nausea, vomiting and shortness of breath for the last three days per medical record report. On arrival to the emergency department patient was placed on BiPAP, heparin drip was started due to elevated troponins and sodium bicarb drip was started for metabolic acidosis. WBCs were 10.24 neutrophils 85.6, hemoglobin of 11.6 hematocrit 26.4 platelet count of 96. Sodium was 138 potassium was 3.8 chloride 95 CO2 of 7. GFR of 71 glucose of 139 mg/dL with a calcium of 7.7. During the night patient's respiratory status worsened and had to be intubated and we are consulted per primary team for critical care management. On behalf of [facility] thank you for given us the opportunity to participate in the care of this patient. On assessment of patient this morning in the emergency department he was intubated on multiple pressors including Levophed, vasopressin and Kailash-Synephr ine with a marginal blood pressure of 93/64 O2 sat of 93% on vent with a FiO2 of 100% heart rate of 123 and afebrile with a T-max of 99 and a T low of 96.1. ABG findings: PH of 7.16, pCO2 of 30 PO2 of 57.7 and bicarb 10.6 and base excess of-16.8. WBCs of 1.2 H&H of 11.3/34.5 with MCV of 111.3 and MCH of 36.5. D-dimer 3889 APTT greater than 139 patient has been placed on a heparin drip for NSTEMI but on hold per primary RN due to coffee brown drainage from OG tube. On chemistry potassium was 2.9 chloride of 103 carbon dioxide of 12 BUN of 12 creatinine of 1.2 GFR of 71 with a glucose of 226 mg/dL hemoglobin A1c of 4.6 with a lactic acid of 2.6 total calcium is 6.5 magnesium of 1.7 covered per protocol total bili of 2.1 AST of 74 CRP of 22.5 high sensitive troponin 750, procalcitonin of 1.13 and TSH of 0.51. On toxicology patient is positive for THC. On urinalysis patient had protein of 50 ketones of 115 occult blood of moderate RBCs 2-5 WBCs of 60 10 hyaline casts of 2-5. Serum ketones of 4.5. Occult blood negative. Influenza a and B negative COVID-19 negative. On chest x-ray bilateral lower lobe infiltrates consistent with pneumonia. Patient was placed on DKA protocol and has been already admitted to the ICU we will follow pt for critical care. PAST MEDICAL HX: Hypertension CHF Alcohol abuse PAST SURGICAL HX: noncontributory SOCIAL HISTORY: Alcohol abuse THC positive Coded Allergies: No Known Drug Allergies (Unverified Allergy, Unknown, 06/09/24) REVIEW OF SYSTEMS: Unable to perform due to patient's intubated. PHYSICAL EXAM: GENERAL: Intubated and sedated. HEENT: Sclera non icteric, dry mucosa NECK: Supple, no JVD, trachea midline LUNGS: Diminished breath sounds bilaterally. No wheezes HEART: Regular rate and rhythm. Normal S1 and S2, without murmurs ABD: Abdomen soft, nontender. Bowel sounds present EXT: No clubbing cyanosis , swelling to bilateral lower extremities. NEURO: Intubated and sedated. Vital Signs (last 8hr) Date Time Temp Pulse Resp B/P (MAP) Pulse Ox O2 Delivery O2 Flow Rate FiO2 06/09/24 08:23 123 30 93/64 93 Ventilator+ 100 06/09/24 08:20 100/64 06/09/24 06:56 97.3 143 28 110/76 97 Bi-PAP+ 40 06/09/24 06:15 145 100 06/09/24 06:12 145 36 109/63 Bi-PAP+ 40 06/09/24 05:40 97.2 144 28 140/89 97 Bi-PAP+ 40 06/09/24 04:41 97.2 128 28 142/85 97 Bi-PAP+ 40 06/09/24 04:15 129/82 Bi-PAP+ 40 06/09/24 02:11 40 06/09/24 01:29 134 28 136/86 100 Bi-PAP+ 75 LABS: Hematology Labs: Test 06/09/24 07:13 06/08/24 23:45 Range/Units White Blood Count 1.2 #L 4.8-10.8 K/uL Red Blood Count 3.10 L 4.50-6.20 MIL/uL Hemoglobin 11.3 L 14.0-18.0 g/dL Hematocrit 34.5 L 42-54 % Mean Corpuscular Volume 111.3 H 79-99 fL Mean Corpuscular Hemoglobin 36.5 H 27.0-33.0 pg Mean Corpuscular Hemoglobin Concent 32.8 32.0-36.0 g/dL Red Cell Distribution Width 11.8 11.0-15.5 % Platelet Count 91 L 130-400 K/uL Mean Platelet Volume 11.6 H 7.5-10.5 fL Immature Granulocyte % (Auto) 0.0 0-1 % Neutrophils (%) (Auto) 62.9 40.0-77.0 % Lymphocytes (%) (Auto) 33.9 21.0-51.0 % Monocytes (%) (Auto) 3.2 3.0-13.0 % Eosinophils (%) (Auto) 0.0 0.0-8.0 % Basophils (%) (Auto) 0.0 0.0-5.0 % Neutrophils # (Auto) 0.8 L 1.8-7.7 K/uL Lymphocytes # (Auto) 0.4 L 1.0-4.8 K/uL Monocytes # (Auto) 0.0 L 0.1-1.0 K/uL Eosinophils # (Auto) 0.00 0.00-0.70 K/uL Basophils # (Auto) 0.00 0.00-0.20 K/uL Absolute Immature Granulocyte (auto 0.00 0-1 K/uL Nucleated Red Blood Cells 1.6 H 0.0-0.19 % Red Blood Cell Morphology See comments White Cell Morphology Comment See comments Chemistry Labs: Test 06/09/24 07:13 Range/Units Sodium Level 145 136-145 mmol/L Potassium Level 2.9 *L 3.5-5.1 mmol/L Chloride Level 103 101-111 mmol/L Carbon Dioxide Level 12 L 21-32 mmol/L Blood Urea Nitrogen 12 7-18 mg/dL Creatinine 1.2 0.5-1.3 mg/dL Glomerular Filtration Rate Calc 71 >90 mL/min Random Glucose 226 H 70-105 mg/dL Hemoglobin A1c 4.6 4.0-6.0 % Estimated Average Glucose (eAG) 85 70-126 mg/dL Lactic Acid Level 2.6 H 0.8-2.5 mmol/L Total Calcium 6.5 L 8.5-10.1 mg/dL Magnesium Level 1.70 L 1.80-2.40 mg/dL Total Bilirubin 2.1 H 0.2-1.0 mg/dL Aspartate Amino Transf (AST/SGOT) 74 H 10-37 U/L Alanine Aminotransferase (ALT/SGPT) 29 12-78 U/L Alkaline Phosphatase 102 50-136 U/L Lactate Dehydrogenase 224 81-234 U/L Total Creatine Kinase 145 21-232 U/L Troponin I High Sensitivity 750 *H 4-75 ng/L C-Reactive Protein, Quantitative 22.50 H 0.5-3.0 mg/L B-Type Natriuretic Peptide 1510 H 0-100 pg/mL Total Protein 5.4 L 6.0-8.3 g/dL Albumin 2.4 L 3.5-5.0 g/dL Triglycerides Level 120 30-200 mg/dL Cholesterol Level 131 <200 mg/dL LDL Cholesterol 73 0-99 mg/dL HDL Cholesterol 35 29-71 mg/dL Procalcitonin 1.13 H 0.05-0.5 ng/mL Thyroid Stimulating Hormone (TSH) 0.51 0.36-3.74 uIU/mL Coagulation Labs: Test 06/09/24 07:13 06/09/24 04:37 Range/Units D-Dimer Quantitative (PE/DVT) 3989 *H 0-500 ng/mL Prothrombin Time 18.3 #H 9.6-11.6 SEC Prothromb Time International Ratio 1.72 H 0.85-1.15 Activated Partial Thromboplast Time > 139.0 #*H 26.3-35.5 SEC DIAGNOSTICS / RADIOLOGY RESULTS: Signed PATIENT: CHRIS CHOI MR#: [id number] : 1970 SEX: M AGE: 53 LOCATION: [facility] ORDER 1023 STATUS: ADM IN REPORT#: [id number] SERVICE 1021 REASON: POST CENTRAL LINE PLACEMENT ORDERING PHYSICIAN: LARISSA ROGERS PROCEDURE: CXR1VW - CHEST 1VW CHEST 1VW REASON: POST CENTRAL LINE PLACEMENT COMPARISON: 06/09/2024 FINDINGS: Heart size is normal. There is pulmonary edema, unchanged. ET and NG tubes appear in good position. There is a right IJ central line with tip in the superior vena cava, no pneumothorax. IMPRESSION: 1. Right IJ central line, tip in the superior vena cava, no pneumothorax. DICTATED BY: AGUSTINA ROSALES MD DATE: 06/09/24 113 ELECTRONICALLY SIGNED BY: AGUSTINA ROSALES MD DATE: 06/09/24 113 PLAN NEURO: Minimize central acting medications as possible. Fall Precautions. Well lighted room through the day and minimize interruptions through the night to prevent acute delirium. PULMONARY: Supplemental 02 as needed Titrate Fio2 to keep Spo2 > or = 90% DuoNebs and CPT as needed IS hourly while awake for pulmonary hygiene Out of bed to chair as tolerated VAP Bundle Vent/BIPAP Settings: Assist-control volume control with tidal volume of 400 respiratory rate of 24 FiO2 100% and PEEP of 8. We will be adjusting ventilator accordingly to saturations and ABGs. CARDIOVASCULAR: Follow hemodynamics. Titrate vasopressor to keep MAP >65 or systolic blood pressure >95mmHg Cardiac monitoring Drips:: Levophed Kailash-Synephrine Vasopressin Sandostatin Protonix Versed Fentanyl LINES: Start CVC PIV GI & NUTRITION: Continue nutritional support Aspirations precautions Prokinetic agents and laxatives as needed To low intermittent suction Consult GI for recommendations in regards to GI bleed Continue Sandostatin Protonix drip KIDNEYS & ELECTROLYTES: Strict monitoring of intake and output Daily weights Avoid nephrotoxic agents Monitor electrolytes and replace as needed Goal urine output of 30mL/hr or 0.5mL/kg/hr Monitor electrolytes and replace accordingly ENDOCRINE: Goal blood glucose between 100-180 at all times. Insulin drip per DKA protocol BNP q.4 hours per DKA protocol. INFECTIOUS DISEASE: Trend temperature. Salmeron-culture if febrile. Micro: Urine culture Blood cultures Respiratory cultures Antibiotics: Vancomycin Cefepime Flagyl HEMATOLOGY & COAGULATION: Monitor H&H. Keep Hgb > 7 Transfuse 1 unit of PRBC for Hgb < 7 Transfuse 1 pack of platelets of platelets < 20, 000 Watch for any signs and symptoms of bleeding SKIN: Pressure ulcer prevention per facility protocol Rehab: PT/OT Prophylaxis: GI: Protonix drip DVT: SCDs due to GI bleed. Code Status: Full Resuscitation Disposition: ICU Other: Total patient care time exceeds 60 minutes excluding all procedures. Case was discussed and seen with my supervising physician. The above plan was formulated and agreed upon. LARISSA ROGERS Jun 09, 2024 08:36
[2024-06-09] MEDS ORDERED: VANCOMYCIN PROTOCOL PER PHARMACY IV SCH (09:00)
--- NOTE | 2024-06-09 09:04 | HMCIMG ---
CHEST 1VW REASON: sob COMPARISON: None. FINDINGS: There are bilateral lower lobe infiltrates more pronounced on the left than the right, consistent with pneumonia. Lungs are otherwise clear. Heart and mediastinum and bony thorax appear normal. There is no vascular congestion or pleural effusion. IMPRESSION: 1. Bilateral lower lobe infiltrates consistent with pneumonia.
--- NOTE | 2024-06-09 09:05 | EKG ---
[facility] Test Date: 2024-06-09 Test Time: 07:02:24 Pat Name: CHRIS CHOI Department: [facility] Room: 206 Gender: M Luster Repairer: [id number] : 1970 Requested By: LAUREN NORRIS Order Number: [id number] Reading MD: Inderjit Haile Measurements Intervals [place] Rate: 144 P: 52 VA: 132 QRS: 26 QRSD: 90 T: 232 QT: 294 QTc: 456 Interpretive Statements Sinus tachycardia Nonspecific repol abnormality, diffuse leads Compared to ECG 06/09/2024 00:00:12 Early repolarization now present Atrial fibrillation no longer present Myocardial infarct finding no longer present T-wave abnormality no longer present Electronically Signed On 06-09-2024 19:44:15 RAIL SIGNAL DESIGNER by Inderjit Haile Please click the below link to view image of tracing.
--- NOTE | 2024-06-09 09:06 | HMCIMG ---
CHEST 1VW REASON: SOB COMPARISON: 06/08/2024 FINDINGS: Single view of the chest was obtained. Lungs are clear. Heart size is normal. There is no pulmonary vascular congestion. Mediastinum and bony thorax appear unremarkable. IMPRESSION: 1. Normal single view chest x-ray.
[2024-06-09 09:13] LABS: CREATININE 1.2 mg/dL (0.5-1.3); MAGNESIUM 1.5 mg/dL (1.80-2.40); POTASSIUM 3.2 mmol/L (3.5-5.1)
[2024-06-09] MEDS: PoTASSium chloRIDE 20MEQ/100ML 100 ML IV PRN (09:13)
--- NOTE | 2024-06-09 09:13 | HMCIMG ---
CHEST 1VW REASON: S/P INTUBATION COMPARISON: 06/09/2024 FINDINGS: Heart size is normal. There is been interval development of pulmonary edema. There are small bilateral pleural effusions. ET tube tip is at midclavicular point. NG tube tip is just entering the stomach, sidehole remains in the distal esophagus. There is no evidence of pneumothorax. IMPRESSION: 1. Interval development of pulmonary edema. 2. ET tube in good position with tip at midclavicular point. 3. NG tube tip just entering the stomach, sidehole remains in the distal esophagus.
[2024-06-09] MEDS: phenylEPHRINE HCL 10 MG in 0.9% NACL 250ML 250 ML IV PRN (09:27)
--- NOTE | 2024-06-09 09:59 | NUR ---
OBTAINED TELEPHONE CONSENT FROM PTS FRIEND, JOHNATHAN PRICE , PER JOHNATHAN, PT DOES NOT HAVE [facility] FAMILY LIVING NEAR BY. SHE IS ONLY AWARE OF PTS SISTER THAT LIVES IN [place], BUT SHE DOES NOT KNOW HER NUMBER. PER JOHNATHAN, PT DOES NOT HAVE ANY CHILDREN THAT SHE IS AWARE OF.
[2024-06-09] MEDS ORDERED: DEXTROSE 5 %-0.45 % NACL 1,000 ML IV SCH (10:00)
[2024-06-09] MEDS ORDERED: 0.9%NACL 1000ML 1,000 ML IV SCH (10:00)
[2024-06-09] MEDS ORDERED: SODIUM BICARB 50MEQ 50ML VIAL IV ONE (10:00)
[2024-06-09] MEDS ORDERED: D5W-1/2 NS/20MEQ KCL 1,000 ML IV SCH (10:00)
[2024-06-09] MEDS ORDERED: PoTASSium chloRIDE 20MEQ/10ML 20 MEQ in 0.9%NACL 1000ML 1,000 ML IV SCH (10:00)
[2024-06-09] MEDS: SODIUM BICARB 50MEQ 50ML VIAL 50 ML ONE (11:19)
[2024-06-09] MEDS: VANCOMYCIN 1.5 GM/250 ML BAG 250 ML IV ONE (11:19)
--- NOTE | 2024-06-09 11:26 | CONS ---
[facility] CARDIOLOGY CONSULTATION REPORT Cardiology consultation note dictated for Chirag Sánchez MD Date Patient Seen: Jun 09, 2024 Requesting Physician: VIVEK Wilder Reason for Consultation: Elevated troponin History of Present Illness: This is a 53-year-old male with a past medical history of hypertension, and CHF who presented to the ED with complaints of nausea, coffee-ground emesis, shortness of breath, and abdominal pain for approximately 2-3 days. The patient had acute respiratory failure and was intubated. Cardiology has been consulted for elevated troponin. HPI has been obtained from medical records as the patient is intubated. Troponin of 441, 600, 678, and 750. EKG available in the chart demonstrates sinus tachycardia with a heart rate of 112 bpm. The patient is maintained on Versed, Sandostatin, Protonix, norepinephrine, Kailash- Synephrine, and vasopressin drip. BNP is elevated at 1510 with chest x-ray demonstrating pulmonary edema. D-dimer is elevated at 3989. WBC on admission of 10.4 has decreased to 1.2. P latelet of 91 today. H&H is stable at 11.3 and 34.5. Occult stool was negative. He did test positive for THC. Procalcitonin is elevated at 1.13, CRP is elevated at 22.5 and lactic acid is mildly elevated at 2.6. Past Medical History: As per HPI and summarized below Past Surgical History: Unknown Family History: Unknown Social History: Unknown Habits: Two Vodka 2 shots per night, marijuana use. Home Meds: Carvedilol 12.5 mg b.i.d. Losartan 25 mg daily Lasix 40 mg daily Folic acid1 mg daily Current Meds: Current Medications Medications Dose Ordered Sig/Quan Start Time Stop Time Status Last Admin Sodium Bicarbonate 150 meq/Dextrose 1,150 ml @ 150 mls/hr Q7H40M 06/09/24 00:30 07/09/24 00:29 06/09/24 01:18 Pantoprazole Sodium 80 mg/ Sodium Chloride 100 ml @ 10 mls/hr Q10H 06/09/24 04:00 07/09/24 03:59 06/09/24 04:26 Fentanyl Citrate 100 ml @ 2.5 mls/hr PROTOCOL 06/09/24 06:30 06/16/24 06:29 06/09/24 10:44 Phenylephrine HCl 10 mg/Sodium Chloride 250 ml @ 0 mls/hr PROTOCOL PRN 06/09/24 07:00 07/09/24 06:59 06/09/24 09:27 Vasopressin 20 units/Sodium Chloride 100 ml @ 0 mls/hr PROTOCOL 06/09/24 07:00 07/09/24 06:59 06/09/24 08:20 Furosemide 20 mg Q12H 06/09/24 12:00 07/09/24 11:59 Octreotide Acetate 1250 mcg/ Sodium Chloride 250 ml @ 0 mls/hr PROTOCOL 06/09/24 08:30 07/09/24 08:29 Potassium Chloride 20 meq AD PRN 06/09/24 08:30 07/09/24 08:29 Potassium Chloride 20 meq AD PRN 06/09/24 08:30 07/09/24 08:29 Potassium Chloride 100 ml @ 50 mls/hr AD PRN 06/09/24 08:30 07/09/24 08:29 06/09/24 09:13 Vancomycin HCl 1 each AD 06/09/24 09:00 06/23/24 08:59 Cefepime HCl 2 gm Q8H 06/09/24 09:00 06/19/24 08:59 Metronidazole/ Sodium Chloride 100 ml @ 100 mls/hr Q8H6 06/09/24 14:00 06/19/24 13:59 Chlorhexidine Gluconate 15 ml Q8H 06/09/24 09:00 06/23/24 08:59 Artificial Tears 1 DROP OR AD Q8H 06/09/24 09:00 07/09/24 08:59 Vancomycin HCl 250 ml @ 125 mls/hr ONCE ONCE 06/09/24 09:00 06/09/24 10:59 Vancomycin HCl 250 ml @ 125 mls/hr Q12H 06/09/24 22:00 06/19/24 21:59 Sodium Chloride 1,000 ml @ 200 mls/hr PROTOCOL 06/09/24 10:00 07/09/24 09:59 Potassium Chloride/Dextrose/ Sod Cl 1,000 ml @ 0 mls/hr AD 06/09/24 10:00 07/09/24 09:59 Potassium Chloride 20 meq/ Sodium Chloride 1,010 ml @ 0 mls/hr PROTOCOL 06/09/24 10:00 07/09/24 09:59 Magnesium Sulfate 50 ml @ 0 mls/hr PROTOCOL 06/09/24 10:00 07/09/24 09:59 Insulin Human Regular 100 unit/ Sodium Chloride 101 ml @ 0 mls/hr PROTOCOL 06/09/24 10:00 07/09/24 09:59 Dextrose/Sodium Chloride 1,000 ml @ 0 mls/hr AD 06/09/24 10:00 07/09/24 09:59 Review of Systems: Unable to obtain a review of systems as the patient is intubated. Physical Examination: GENERAL: Sedated and mechanically ventilated HEAD: Normal with no signs of head trauma. EYES: PERRLA, EOMI, conjunctiva and sclera normal. ENT: Unable to assess hearing. Right IJ with central line NECK: Supple without JVD. There is no tenderness, lymphadenopathy, or masses. No thyromegaly. LUNGS: Mechanically ventilated breath sounds. HEART: Normal rate and rhythm. Normal S1 and S2 without murmurs, gallop or rub. VASC: Peripheral pulses +2 bilaterally. ABD: Bowel sounds normal, soft, nontender, no masses, no organomegaly. No audible bruits. : Gomez catheter with yellow urine LYMPH: No lymphadenopathy noted. EXT: No clubbing, cyanosis or edema. SKIN: IO access to the LLE NEURO: Sedated Vital Signs (last 8hr) Date Time Temp Pulse Resp B/P (MAP) Pulse Ox O2 Delivery O2 Flow Rate FiO2 06/09/24 10:00 113 24 109/67 95 Ventilator+ 100 06/09/24 09:43 108 100 06/09/24 09:27 104/70 06/09/24 08:23 123 30 93/64 93 Ventilator+ 100 06/09/24 08:20 100/64 06/09/24 06:56 97.3 143 28 110/76 97 Bi-PAP+ 40 06/09/24 06:15 145 100 06/09/24 06:12 145 36 109/63 Bi-PAP+ 40 06/09/24 05:40 97.2 144 28 140/89 97 Bi-PAP+ 40 06/09/24 04:41 97.2 128 28 142/85 97 Bi-PAP+ 40 06/09/24 04:15 129/82 Bi-PAP+ 40 Laboratory: Hematology Labs: Test 06/09/24 07:13 06/08/24 23:45 Range/Units White Blood Count 1.2 #L 4.8-10.8 K/uL Red Blood Count 3.10 L 4.50-6.20 MIL/uL Hemoglobin 11.3 L 14.0-18.0 g/dL Hematocrit 34.5 L 42-54 % Mean Corpuscular Volume 111.3 H 79-99 fL Mean Corpuscular Hemoglobin 36.5 H 27.0-33.0 pg Mean Corpuscular Hemoglobin Concent 32.8 32.0-36.0 g/dL Red Cell Distribution Width 11.8 11.0-15.5 % Platelet Count 91 L 130-400 K/uL Mean Platelet Volume 11.6 H 7.5-10.5 fL Immature Granulocyte % (Auto) 0.0 0-1 % Neutrophils (%) (Auto) 62.9 40.0-77.0 % Lymphocytes (%) (Auto) 33.9 21.0-51.0 % Monocytes (%) (Auto) 3.2 3.0-13.0 % Eosinophils (%) (Auto) 0.0 0.0-8.0 % Basophils (%) (Auto) 0.0 0.0-5.0 % Neutrophils # (Auto) 0.8 L 1.8-7.7 K/uL Lymphocytes # (Auto) 0.4 L 1.0-4.8 K/uL Monocytes # (Auto) 0.0 L 0.1-1.0 K/uL Eosinophils # (Auto) 0.00 0.00-0.70 K/uL Basophils # (Auto) 0.00 0.00-0.20 K/uL Absolute Immature Granulocyte (auto 0.00 0-1 K/uL Nucleated Red Blood Cells 1.6 H 0.0-0.19 % Red Blood Cell Morphology See comments White Cell Morphology Comment See comments Chemistry Labs: Test 06/09/24 10:48 06/09/24 08:45 06/09/24 07:13 Range/Units Whole Blood Glucose 188 H 70-110 MG/DL Sodium Level 131 L 136-145 mmol/L Potassium Level 3.2 L 3.5-5.1 mmol/L Chloride Level 92 L 101-111 mmol/L Carbon Dioxide Level 13 L 21-32 mmol/L Blood Urea Nitrogen 12 7-18 mg/dL Creatinine 1.2 0.5-1.3 mg/dL Glomerular Filtration Rate Calc 71 >90 mL/min Random Glucose 191 H 70-105 mg/dL Whole Blood Ketones Quantitative 4.5 H 0.0-0.6 mmol/L Total Calcium 5.8 *L 8.5-10.1 mg/dL Magnesium Level 1.50 L 1.80-2.40 mg/dL Ammonia 122 *H 11-32 umol/L Hemoglobin A1c 4.6 4.0-6.0 % Estimated Average Glucose (eAG) 85 70-126 mg/dL Lactic Acid Level 2.6 H 0.8-2.5 mmol/L Total Bilirubin 2.1 H 0.2-1.0 mg/dL Aspartate Amino Transf (AST/SGOT) 74 H 10-37 U/L Alanine Aminotransferase (ALT/SGPT) 29 12-78 U/L Alkaline Phosphatase 102 50-136 U/L Lactate Dehydrogenase 224 81-234 U/L Total Creatine Kinase 145 21-232 U/L Troponin I High Sensitivity 750 *H 4-75 ng/L C-Reactive Protein, Quantitative 22.50 H 0.5-3.0 mg/L B-Type Natriuretic Peptide 1510 H 0-100 pg/mL Total Protein 5.4 L 6.0-8.3 g/dL Albumin 2.4 L 3.5-5.0 g/dL Triglycerides Level 120 30-200 mg/dL Cholesterol Level 131 <200 mg/dL LDL Cholesterol 73 0-99 mg/dL HDL Cholesterol 35 29-71 mg/dL Procalcitonin 1.13 H 0.05-0.5 ng/mL Thyroid Stimulating Hormone (TSH) 0.51 0.36-3.74 uIU/mL Coagulation Labs: Test 06/09/24 07:13 06/09/24 04:37 Range/Units D-Dimer Quantitative (PE/DVT) 3989 *H 0-500 ng/mL Prothrombin Time 18.3 #H 9.6-11.6 SEC Prothromb Time International Ratio 1.72 H 0.85-1.15 Activated Partial Thromboplast Time > 139.0 #*H 26.3-35.5 SEC Diagnostics / Radiology: Impression and Plan: Elevated troponin Acute on chronic diastolic congestive heart failure Acute respiratory failure Pulmonary edema Suspected GI bleed Bicytopenia Electrolyte derangement Elevated D-dimer of 3989 HTN Positive for THC Metabolic acidosis POA Hyperglycemia POA Hypomagnesemia POA Active alcohol drinker POA Elevated troponin Troponin of 441, 600, 678, and 750 likely in the setting of acute respiratory failure and suspected GI bleed EKG available in the chart demonstrates sinus tachycardia with a heart rate of 112 bpm -No plans for any invasive cardiac work-up at this time Acute on chronic diastolic congestive heart failure BNP is elevated at 1510 Chest x-ray demonstrated pulmonary edema The patient is maintained on Versed, Sandostatin, Protonix, norepinephrine, Kailash- Synephrine, and Vasopressin drip -Increase Lasix to 20mg IV q 6 hours ATTESTATION BY PHYSICIAN I have seen and examined the patient, reviewed the above documentation, participated in medical decision making, made necessary modifications, and agree with the treatment plan as documented by my mid-level provider above. Chest x-ray is grossly abnormal and there is potential of the patient may have a large ascending aortic aneurysm which could be important perioperative. Also, BNP is elevated significantly. We will follow through with echocardiogram and CT angiogram chest, both to be done today. MD RULA Mosqueda [facility] Jun 09, 2024 11:26 CHIRAG SÁNCHEZ MD Jun 09, 2024 18:16
--- NOTE | 2024-06-09 11:28 | NUR ---
PT SISTER CALLED, GEO'Supp .
--- NOTE | 2024-06-09 11:39 | HMCIMG ---
CHEST 1VW REASON: POST CENTRAL LINE PLACEMENT COMPARISON: 06/09/2024 FINDINGS: Heart size is normal. There is pulmonary edema, unchanged. ET and NG tubes appear in good position. There is a right IJ central line with tip in the superior vena cava, no pneumothorax. IMPRESSION: 1. Right IJ central line, tip in the superior vena cava, no pneumothorax.
[2024-06-09] MEDS: INSULIN REGULAR, HUMAN 3ML 100 UNIT in 0.9%NACL 100ML 100 ML IV SCH (11:41)
[2024-06-09] MEDS ORDERED: furoSEMIDE 20MG VIAL IV SCH (12:00)
--- NOTE | 2024-06-09 12:33 | NUR ---
PT EMPLOYER MR DARRION VARGAS IS AT THE BEDSIDE AND PROVIDED HIS CELL PHONE [phone]
[2024-06-09] MEDS: PANTOPrazole 40 MG/VIAL ONE (13:13)
[2024-06-09] MEDS: ceFEPime HCL 2 GM VIAL IVPB SCH (13:18)
[2024-06-09 13:26] LABS: CREATININE 1.4 mg/dL (0.5-1.3); POTASSIUM 3.7 mmol/L (3.5-5.1)
[2024-06-09] MEDS ORDERED: IOHEXOL-350 75 ML VIAL IV ONE (13:45)
[2024-06-09] MEDS: CHLORHEXIDINE GLUCONATE 15 ML MOUTHWASH MM SCH (14:45)
[2024-06-09] MEDS: PoTASSium chl 10% ELIXIR 20MEQ 20 MEQ/15 ML UDCUP PO ONE (14:46)
[2024-06-09] MEDS: ARTIFICAL TEARS SOL 15 ML OU SCH (14:46)
[2024-06-09] MEDS: NOREPINEPHRINE 16MG/NS 250ML PREMIX IV SCH (14:57)
--- NOTE | 2024-06-09 15:00 | NUR ---
ADMIT FORMS UNABLE TO COMPLETE ADMISSION FORMS, NO FAMILY AT BEDSIDE. PT INTUBATED AND SEDATED.
[2024-06-09] MEDS: furoSEMIDE 20MG VIAL IV SCH (15:07)
[2024-06-09] MEDS: metRONIDazole 500MG/100ML BAG 100 ML IVPB SCH (15:10)
[2024-06-09] MEDS: MIDAZOLAM 100MG-0.9% NS 100ML 100ML BAG IV SCH (15:46)
--- NOTE | 2024-06-09 16:30 | NUR ---
GI CONSULT CONSULT FOR DR MORALES CALLED IN TO OFFICE SPOKE WITH KELECHI. PENDING CALL BACK FROM .
[2024-06-09] MEDS ORDERED: ondanSETRON 4MG INJ IV PRN (18:00)
[2024-06-09] MEDS ORDERED: PHARMACY COMMUNICATION MISC PRN (18:00)
[2024-06-09] MEDS ORDERED: LORazepam 2 MG/ML 1 ML VIAL IVP PRN ×2 (18:00)
[2024-06-09 18:07] LABS: HEMATOCRIT 31.8 % (42-54)
--- NOTE | 2024-06-09 18:15 | PRN ---
[facility] Procedure Note [facility] Procedure Note DATE OF PROCEDURE: 06/09/24 09:30 INDICTAION: Septic shock Procedures performed: -Central line placement, right internal jugular vein -Intraoperative ultrasound guidance with permanent recording of images in chart. Pre-procedure checklist: -Informed consent obtained. -Time-out performed per hospital policy. Medications: -Lidocaine 1% 5 ml Description of procedure: Hand hygiene was performed. Cap, mask, sterile gown, and sterile gloves were donned. Area was prepped with 2% chlorhexidine and a large sterile drape was applied with sterile field maintained. 5 ml of Lidocaine injected into surrounding tissue. Using ultrasound probe with sterile sleeve in place, procedure site was assessed and the vein was entered with direct ultrasound guidance while maintaining strict sterile technique. Triple lumen catheter was inserted with Seldinger technique. Venous blood was aspirated freely from all 3 ports and flushed with 10 ml of 0.9% saline each. Line secured at the hub and sutured in place. Biopatch placed in the correct position and clear sterile dressing was applied. A post-procedure chest x-ray was ordered. Procedure was performed under direct supervision of [Duane Chacko MD]. Time spent on this procedure is independent of the time spent planning and coordinating the patient's care. LARISSA ROGERS Jun 09, 2024 18:15
--- NOTE | 2024-06-09 18:30 | HMCSR ---
APPROVED REPORT EXAM: Two-dimensional and M-mode echocardiogram with Doppler and color Doppler. INDICATION ICD: Congestive heart failure 2D Dimensions RVDd3.5 cmLVEF(%)46.9 (>50%)LVED Vol(simp.)115.0 mL IVSd0.5 (0.7-1.1cm)FS(%)24 %LVES Vol(simp.)68.6 mL LVDd5.1 (3.8-5.6cm)LVOT diam2.2 (1.8-2.4cm)LVEF(%, simp.)40 % PWd1.0 (0.7-1.1cm)LA ESV INDEX (4CH)31.70 mL/m2 IVSs0.5 cm LVDs3.9 (2.5-4.0cm) PWs1.1 cm M-Mode Dimensions LA (MM)3.5 (1.6-4.0cm) Ao Root(MM)5.0 (2.0-3.7cm) Aortic Valve AoV VTI0.1 mAo Mean GR2.0 mmHgLVOT VTI0.10 m PETER (VMAX)2.7 cm2AVA (VTI) 2.7 cm2 Mitral Valve MV E Vmax35.4 cm/sDECEL Time99 ms MV A Vmax50.4 cm/sP 1/2 T34 ms E/A ratio0.7MVA (PHT)6.5 cm2 TDI E/E' Medial4.9E/E' Lateral7.1 Medial E' Peak V7.20 cm/sLateral E' Peak V5.00 cm/s Pulmonary Valve PV Vmax0.7 m/s PV Peak GR1.9 mmHg Left Ventricle The left ventricle is normal size. Global hypokinesia There is normal left ventricular wall thickness . LVEF is 40%. Grade I diastolic dysfunction Right Ventricle The right ventricle is normal size. The right ventricular systolic function is normal. Atria The left atrium size is normal. The right atrium size is normal. Aortic Valve The aortic valve is normal in structure. No aortic regurgitation is present. There is no aortic valvu lar stenosis. Mitral Valve The mitral valve is normal in structure. There is no mitral valve regurgitation noted. There is no mi tral valve stenosis. Tricuspid Valve The tricuspid valve is normal in structure. There is no tricuspid valve regurgitation noted. Pulmonic Valve The pulmonary valve is normal in structure. There is no pulmonic valvular regurgitation. Great Vessels The aortic root is normal in size. The IVC is normal in size and collapses >50% with inspiration. Pericardium There small asymetrical pericardial effusion. No echo indications of pericardial tamponade. Other Information Quality : Technically difficult study due to body habitus, pt intubated Conclusion LVEF is 40%. Grade I diastolic dysfunction
--- NOTE | 2024-06-09 18:30 | NUR ---
SPEECH TRIGGER COMPLETED (INTUBATION). Pt IS A 53 Y.O. MALE ADMITTED SECONDARY TO ACUTE RESPIRATORY FAILURE. Pt HAS A PAST MEDICAL HISTORY SIGNIFICANT FOR HYPERTENSION AND CHF. Pt CURRENTLY INTUBATED AND NPO. PLEASE REQUEST SPEECH THERAPY SERVICES FOR SKILLED BEDSIDE SWALLOW EVALUATION 24 HOURS POST EXTUBATION IF ANY S/S OF ASPIRATION ARISE WITH ORAL INTAKE. Addendum: 06/09/[address] VIVI BRINK Amended: Links added.
[2024-06-09 18:38] LABS: CREATININE 1.3 mg/dL (0.5-1.3); POTASSIUM 3.1 mmol/L (3.5-5.1)
[2024-06-09] MEDS: THIAMINE HCL 100 MG/ML 2ML VIAL IV SCH (18:55)
--- NOTE | 2024-06-09 19:56 | HMCIMG ---
CT angiogram chest CLINICAL INDICATION: sob COMPARISON: None. CT Dose Index (CTDI): 113.50 mGy Dose Length Product (DLP): 1408.10 total mGy PROTOCOL: Contrast: 100 cc of Isovue-370, injected IV, no complications Examination is done at 2.5 millimeter volumetric acquisition after contrast administration. Photography is done at 5 millimeter thick intervals for the thorax. FINDINGS: There is no evidence of pulmonary embolism. The airway is intact. The trachea and major bronchi are unremarkable. Severe bilateral pneumonia. Follow-up to complete radiographic resolution recommended. Ascites. No pleural effusions are identified. The exam of the dianne and mediastinum is unremarkable. No evidence of hilar enlargement is seen. The aorta shows no aneurysmal dilatation or significant atheromatous calcification. There is no thoracic aortic dissection. No significant brachiocephalic vascular abnormalities are seen. The heart is unremarkable. It is not enlarged. No significant coronary arterial calcifications are seen. There is no pericardial effusion. The rib cage appears unremarkable. The soft tissues of the chest wall are unremarkable. The dorsal spine shows no significant abnormalities. Limited evaluation of the upper abdomen demonstrates no gross abnormalities. IMPRESSION: No evidence of pulmonary embolism. Severe bilateral pneumonia. Follow-up advised. This study was performed using dose reduction techniques to include automated exposure control and/or adjustment of the mA and/or kV according to patient size.
--- NOTE | 2024-06-09 20:01 | CONS ---
GASTROENTEROLOGY CONSULTATION NOTE Date of Consultation: Jun 09, 2024 Time of Consultation: 20:01 History of Present Illness: This is a 53-year-old male with past medical history of hypertension and CHF who presented due to nausea, vomiting and shortness of breath. He consumes daily alcohol. Due to worsening shortness of breath he was placed on BiPAP. Patient is now in ICU intubated. He is on pressor support. Prostacyclin weaned down. We were consulted due to hematemesis. Hemoglobin 10.6 with a platelet count of 91 and INR 1.72. No family at bedside. Review of Systems: CONSTITUTIONAL: No malaise or change in sensation of wellbeing. ENMT: No rhinorrhea, otorrhea, sinus pain, ear ache. CARDIOVASCULAR: No angina, palpitations, orthopnea or paroxysmal dyspnea. RESPIRATORY: No SOB. GASTROINTESTINAL: No abdominal pain, nausea, vomiting, diarrhea, hematemesis, melena or change in the patient's habitual bowel movements consistency/number. GENITOURINARY: No dysuria, hematuria or change in bladder continence. MUSCULOSKELETAL: No new muscle pain or decrease in muscular strength. No new joint swelling, redness or tenderness. SKIN: No new rash. Past Medical History: PAST MEDICAL HISTORY: [ Hypertension and CHF] PAST SURGICAL HISTORY: [ Patient denies ] PAST SOCIAL HISTORY: [ Patient lives alone. Patient admits to smoking marijuana and drinking vodka two shots per night last consumption was three days ago. Patient denies cocaine use] FAMILY HISTORY: [ Noncontributory ] Coded Allergies: No Known Drug Allergies (Unverified Allergy, Unknown, 06/09/24) Coded Allergies: No Known Drug Allergies (Unverified Allergy, Unknown, 06/09/24) Physical Exam: GEN: Awake, alert, oriented in person, time and place, and in no acute distress. HEENT: No sinus tenderness. Tympanic membranes were not examined. No rhinorrhea. Oral pharyngeal mucosa is pink, moist and within normal limits. Neck is supple with no cervical lymphadenopathy, thyromegaly or JVD. CHEST: Inspection, palpation and percussion of the chest were unremarkable. Lung auscultation revealed normal breath sounds bilaterally. CARDIAC: PMI is within normal limits. Heart sounds are regular. Normal S1, S2. No gallop or murmur. ABD: Soft, non-tender and not distended. No peritoneal signs on palpation. No organomegaly. Normal bowel sounds. EXT: No cyanosis or clubbing. No edema. SKIN: Intact. No rashes. JOINTS: No evidence of synovitis or acute arthritis. NEURO: Alert and oriented to name, place and person. Cranial nerve examination is unremarkable. No focal motor deficits. Normal speech. Gait is normal. Strength is normal. Vital Sign (Last 24 Hours) 06/09/24 06/09/24 06/09/24 06/09/24 00:12 16:00 18:45 18:55 Pulse 109 Resp 24 B/P (MAP) 99/55 (70) Pulse Ox 97 O2 Delivery Ventilator+ O2 Flow Rate 0 FiO2 100 Intake & Output (last 24hrs) 06/08/24 06/08/24 06/09/24 15:00 23:00 07:00 Output Total 900 ml Balance -900 ml Laboratory: [ ] Laboratory: Test 06/09/24 18:01 06/09/24 17:49 06/09/24 08:45 06/09/24 08:00 Range/Units Hemoglobin 10.6 L 14.0-18.0 g/dL Hematocrit 31.8 L 42-54 % Sodium Level 147 H 136-145 mmol/L Potassium Level 3.1 L 3.5-5.1 mmol/L Chloride Level 107 101-111 mmol/L Carbon Dioxide Level 21 21-32 mmol/L Blood Urea Nitrogen 15 7-18 mg/dL Creatinine 1.3 0.5-1.3 mg/dL Glomerular Filtration Rate Calc 65 >90 mL/min Random Glucose 165 H 70-105 mg/dL Lactic Acid Level 2.4 0.8-2.5 mmol/L Total Calcium 6.8 L 8.5-10.1 mg/dL Troponin I High Sensitivity 953 *H 4-75 ng/L Procalcitonin 13.75 H 0.05-0.5 ng/mL Whole Blood Glucose 179 H 70-110 MG/DL Whole Blood Ketones Quantitative 4.5 H 0.0-0.6 mmol/L Magnesium Level 1.50 L 1.80-2.40 mg/dL Ammonia 122 *H 11-32 umol/L Blood Gas Specimen Type Arterial Arterial Blood pH 7.160 *L 7.350-7.450 Arterial Blood Partial Pressure CO2 30 L 35-48 mmHg Arterial Blood Partial Pressure O2 57.7 L 83.0-108.0 mmHg Arterial Blood HCO3 10.6 L 21.0-28.0 mmol/L Arterial Blood Oxygen Saturation 85.7 L 94.0-98.0 % Arterial Blood Base Excess -16.8 L -2.0-3.0 mmol/L Hemoglobin (Blood Gas) 11.8 L 13.5-17.5 g/dL Sodium (Blood Gas) 138 136-145 MMOL/L Bedside Potassium (Blood Gas) 3.0 *L 3.4-4.5 MMOL/L Bedside Chloride (Blood Gas) 102 98-107 MMOL/L Bedside Glucose (Blood Gas) 213 H 65-95 MG/DL Bedside Ionized Calcium (Blood Gas) 1.04 L 1.15-1.33 MMOL/L Bedside Lactic Acid (Blood Gas) 2.17 H 0.36-0.75 MMOL/L Blood Gas Temperature 37.0 35.5-37.0 CELSIUS Blood Gas Respiration Rate 20.0 min. Blood Gas Vent Mode AC-VC ROOM AIR FiO2 100.0 % Blood Gas Tidal Volume 500 ml Blood Gas PEEP 5 cm H2O Blood Gas Specimen Comment LR CHRIS Test 06/09/24 07:13 06/09/24 04:37 06/09/24 03:54 06/09/24 01:39 Range/Units White Blood Count 1.2 #L 4.8-10.8 K/uL Red Blood Count 3.10 L 4.50-6.20 MIL/uL Mean Corpuscular Volume 111.3 H 79-99 fL Mean Corpuscular Hemoglobin 36.5 H 27.0-33.0 pg Mean Corpuscular Hemoglobin Concent 32.8 32.0-36.0 g/dL Red Cell Distribution Width 11.8 11.0-15.5 % Platelet Count 91 L 130-400 K/uL Mean Platelet Volume 11.6 H 7.5-10.5 fL Immature Granulocyte % (Auto) 0.0 0-1 % Neutrophils (%) (Auto) 62.9 40.0-77.0 % Lymphocytes (%) (Auto) 33.9 21.0-51.0 % Monocytes (%) (Auto) 3.2 3.0-13.0 % Eosinophils (%) (Auto) 0.0 0.0-8.0 % Basophils (%) (Auto) 0.0 0.0-5.0 % Neutrophils # (Auto) 0.8 L 1.8-7.7 K/uL Lymphocytes # (Auto) 0.4 L 1.0-4.8 K/uL Monocytes # (Auto) 0.0 L 0.1-1.0 K/uL Eosinophils # (Auto) 0.00 0.00-0.70 K/uL Basophils # (Auto) 0.00 0.00-0.20 K/uL Absolute Immature Granulocyte (auto 0.00 0-1 K/uL Nucleated Red Blood Cells 1.6 H 0.0-0.19 % Red Blood Cell Morphology See comments D-Dimer Quantitative (PE/DVT) 3989 *H 0-500 ng/mL Hemoglobin A1c 4.6 4.0-6.0 % Estimated Average Glucose (eAG) 85 70-126 mg/dL Total Bilirubin 2.1 H 0.2-1.0 mg/dL Aspartate Amino Transf (AST/SGOT) 74 H 10-37 U/L Alanine Aminotransferase (ALT/SGPT) 29 12-78 U/L Alkaline Phosphatase 102 50-136 U/L Lactate Dehydrogenase 224 81-234 U/L Total Creatine Kinase 145 21-232 U/L C-Reactive Protein, Quantitative 22.50 H 0.5-3.0 mg/L B-Type Natriuretic Peptide 1510 H 0-100 pg/mL Total Protein 5.4 L 6.0-8.3 g/dL Albumin 2.4 L 3.5-5.0 g/dL Triglycerides Level 120 30-200 mg/dL Cholesterol Level 131 <200 mg/dL LDL Cholesterol 73 0-99 mg/dL HDL Cholesterol 35 29-71 mg/dL Thyroid Stimulating Hormone (TSH) 0.51 0.36-3.74 uIU/mL Prothrombin Time 18.3 #H 9.6-11.6 SEC Prothromb Time International Ratio 1.72 H 0.85-1.15 Activated Partial Thromboplast Time > 139.0 #*H 26.3-35.5 SEC Stool Occult Blood NEGATIVE NEGATIVE Salicylates Level < 2.8 L 2.8-20.0 mg/dL Test 06/09/24 00:55 06/09/24 00:23 06/08/24 23:45 06/08/24 00:00 Range/Units Urine Color LIGHT-YELLOW YELLOW Urine Appearance CLEAR CLEAR Urine pH 6.0 5.0-8.0 Urine Specific [place] 1.012 1.001-1.031 Urine Protein 50 H NEGATIVE mg/dL Urine Glucose (UA) NEGATIVE NEGATIVE mg/dL Urine Ketones 150 H NEGATIVE mg/dL Urine Occult Blood MODERATE H NEGATIVE Urine Nitrate NEGATIVE NEGATIVE Urine Bilirubin NEGATIVE NEGATIVE mg/dL Urine Urobilinogen 0.2 0.2-1.0 mg/dL Urine Leukocyte Esterase NEGATIVE NEGATIVE Melchor/uL Urine RBC 2-5 H 0-1 /HPF Urine WBC 6-10 H 0-1 /HPF Urine Bacteria FEW None Seen /HPF Urine Hyaline Casts 2-5 H 0-1 /LPF /LPF Urine Opiates Screen NEGATIVE NEGATIVE Urine Barbiturates Screen NEGATIVE NEGATIVE Urine Phencyclidine Screen NEGATIVE NEGATIVE Urine Amphetamines Screen NEGATIVE NEGATIVE Urine Benzodiazepines Screen NEGATIVE NEGATIVE Urine Cocaine Screen NEGATIVE NEGATIVE Urine Marijuana (THC) Screen POSITIVE H NEGATIVE Blood Gas Flow-by 25.00 H 0.00-15.00 L/min White Cell Morphology Comment See comments Influenza Type A Antigen Negative For Type A NEGATIVE Influenza Type B Antigen Negative For Type B NEGATIVE SARS-CoV-2, RNA, NAAT NEGATIVE SARS CoV-2 NEGATIVE Current Medications Medications (Trade) Dose Ordered Sig/Quan Route PRN Reason Start Time Stop Time Status Last Admin Dose Admin Acetaminophen (TYLenol 500MG TAB) 500 mg Q6H PRN PO TEMP < 101.1 AND/OR HEADACHE 06/09/24 18:00 07/09/24 17:59 Artificial Tears (Artificial Tears) 1 DROP OR AD Q8H OU 06/09/24 09:00 07/09/24 08:59 Cefepime HCl (MAXipime 2 gm vial) 2 gm Q8H IVPB 06/09/24 09:00 06/19/24 08:59 06/09/24 18:54 2 GM Chlorhexidine Gluconate (Peridex) 15 ml Q8H MM 06/09/24 09:00 06/23/24 08:59 06/09/24 18:55 15 ML Dextrose/Sodium Chloride 1,000 ml @ 0 mls/hr AD IV 06/09/24 10:00 07/09/24 09:59 Fentanyl Citrate 100 ml @ 2.5 mls/hr PROTOCOL IV 06/09/24 06:30 06/16/24 06:29 06/09/24 15:33 2.5 MLS/HR Folic Acid (FolVITE 5 MG/ML VIAL) 1 mg DAILY IV 06/09/24 18:00 07/09/24 17:59 Furosemide (LASix 20MG VIAL) 20 mg Q12H IV 06/09/24 12:00 06/09/24 11:26 DC Furosemide (LASix 20MG VIAL) 20 mg Q6H6 IV 06/09/24 12:00 07/09/24 11:59 06/09/24 15:07 20 MG Heparin Sodium/ Dextrose 250 ml @ 0 mls/hr PROTOCOL IV 06/09/24 03:30 06/09/24 09:45 DC 06/09/24 03:31 10.78 MLS/HR Insulin Human Regular 100 unit/ Sodium Chloride 101 ml @ 0 mls/hr PROTOCOL IV 06/09/24 10:00 07/09/24 09:59 06/09/24 11:41 1 MLS/HR Levofloxacin/ Dextrose (LEvaquIN 750 MG/ D5W 150 ML) 750 mg Q24H IV 06/09/24 06:30 06/09/24 08:29 DC Lorazepam (AtiVAN) 2 mg Q4H PRN IVP ALCOHOL WITHDRAWAL PROTOCOL 06/09/24 18:00 06/16/24 17:59 Lorazepam (AtiVAN) 4 mg Q2H PRN IVP ALCOHOL WITHDRAWAL PROTOCOL 06/09/24 18:00 06/16/24 17:59 Magnesium Sulfate 50 ml @ 0 mls/hr PROTOCOL IV 06/09/24 10:00 07/09/24 09:59 Magnesium Sulfate 50 ml @ 0 mls/hr PROTOCOL PRN IV OTHER [SEE ORDER COMMENTS] 06/09/24 01:00 06/09/24 06:50 DC 06/09/24 01:03 25 MLS/HR Magnesium Sulfate 50 ml @ 0 mls/hr PROTOCOL PRN IV OTHER [SEE ORDER COMMENTS] 06/09/24 07:00 06/09/24 08:35 DC Magnesium Sulfate 50 ml @ 0 mls/hr PROTOCOL PRN IV low magnesium 06/09/24 08:30 06/09/24 09:46 DC Metronidazole/ Sodium Chloride 100 ml @ 100 mls/hr Q8H6 IVPB 06/09/24 14:00 06/19/24 13:59 06/09/24 15:10 100 MLS/HR Midazolam HCl (Midazolam 100mg-0.9% NS 100ml) 100 ml PROTOCOL IV 06/09/24 15:30 07/09/24 15:29 06/09/24 15:46 100 ML Multivitamins Therapeutic (Multivitamin Tablet) 1 tab DAILY PO 06/10/24 09:00 07/10/24 08:59 Norepinephrine Bitartrate (Norepineph 16 Mg/250ml NS Premix) HIGH ALERT Init... PROTOCOL IV 06/09/24 12:30 07/09/24 12:29 06/09/24 14:57 16 MG Octreotide Acetate 1250 mcg/ Sodium Chloride 250 ml @ 0 mls/hr PROTOCOL IV 06/09/24 08:30 07/09/24 08:29 Octreotide Acetate 500 mcg/ Sodium Chloride 100 ml @ 0 mls/hr PROTOCOL IV 06/09/24 04:30 06/09/24 08:13 DC 06/09/24 05:50 5 MLS/HR Ondansetron HCl (zoFRAN 4MG INJ) 4 mg Q4H PRN IV NAUSEA 06/09/24 18:00 07/09/24 17:59 Pantoprazole Sodium 80 mg/ Sodium Chloride 100 ml @ 10 mls/hr Q10H IVP 06/09/24 04:00 07/09/24 03:59 06/09/24 15:02 10 MLS/HR Pharmacy Profile Note (Pharmacy Communication) 1 each PROTOCOL PRN MISC ETOH Withdrawal Score changes 06/09/24 18:00 06/16/24 17:59 Phenylephrine HCl 10 mg/Sodium Chloride 250 ml @ 0 mls/hr PROTOCOL PRN IV PROTOCOL 06/09/24 07:00 07/09/24 06:59 06/09/24 09:27 96 MLS/HR Potassium Chloride 20 meq/ Sodium Chloride 1,010 ml @ 0 mls/hr PROTOCOL IV 06/09/24 10:00 07/09/24 09:59 Potassium Chloride/Dextrose/ Sod Cl 1,000 ml @ 0 mls/hr AD IV 06/09/24 10:00 07/09/24 09:59 Potassium Chloride 100 ml @ 50 mls/hr AD PRN IV POTASSIUM PROTOCOL 06/09/24 07:00 06/09/24 08:34 DC Potassium Chloride 100 ml @ 50 mls/hr AD PRN IV POTASSIUM PROTOCOL 06/09/24 08:30 07/09/24 08:29 06/09/24 09:13 50 MLS/HR Potassium Chloride 100 ml @ 100 mls/hr AD PRN IV POTASSIUM PROTOCOL 06/09/24 08:30 06/09/24 08:41 DC Potassium Chloride (K-Dur/Klor-Con 20meq) 20 meq AD PRN PO POTASSIUM PROTOCOL 06/09/24 08:30 07/09/24 08:29 Potassium Chloride (KCl 10% Elixir 20meq/15ml) 20 meq AD PRN PO POTASSIUM PROTOCOL 06/09/24 08:30 07/09/24 08:29 Sodium Bicarbonate 150 meq/Dextrose 1,150 ml @ 150 mls/hr Q7H40M IVP 06/09/24 00:30 06/09/24 18:11 DC 06/09/24 01:18 150 MLS/HR Sodium Chloride 1,000 ml @ 200 mls/hr PROTOCOL IV 06/09/24 10:00 07/09/24 09:59 Thiamine HCl (Vitamin B-1) 300 mg DAILY IV 06/09/24 18:00 07/09/24 17:59 06/09/24 18:55 300 MG Vancomycin HCl 250 ml @ 125 mls/hr Q12H IV 06/09/24 22:00 06/19/24 21:59 Vancomycin HCl (Vancomycin Protocol) 1 each AD IV 06/09/24 09:00 06/23/24 08:59 Vasopressin 20 units/Sodium Chloride 100 ml @ 0 mls/hr PROTOCOL IV 06/09/24 07:00 07/09/24 06:59 06/09/24 08:20 9 MLS/HR Diagnostics / Radiology: [COPY/PASTE HERE IF NO REPORTS PLEASE DELETE SECTION] Assessment: Hematemesis Acute blood loss anemia Cirrhosis Plan: 1. NPO 2. EGD in AM. I have discussed the risks, benefits, alternatives, and potential complications. Questions were answered and they agree to proceed. 3. Pantoprazole drip 80 mg IV bolus and then 8 mg/hr IV infusion for 72 hours 4. Octreotide 50 mcg IV bolus and then 50 mcg/hr IV infusion for 72 hours 5. Recommend checking Hg every 6 hours and transfuse to goal Hg >7. Please do not overtransfuse 6. Please contact our service if the patient has significant bleeding such as hematemesis and we can proceed sooner with the EGD Thanks you for allowing us to participate in the care of this patient! LISA FRASER [employer] TECHNICIAN Jun 09, 2024 20:01
[2024-06-09] MEDS: FOLic ACID 5 MG/ML VIAL IV SCH (20:12)
[2024-06-09] MEDS: VANCOMYCIN 1G/250ML KIT 250 ML IV SCH (21:08)
[2024-06-09 21:44] LABS: CREATININE 1.6 mg/dL (0.5-1.3); POTASSIUM 3.9 mmol/L (3.5-5.1)
[2024-06-09] MEDS: OCTREOTIDE 1,250 MCG /NS 250ML (DRIP) IV SCH (21:53)
[2024-06-09] MEDS: MAGNESIUM 2GM PREMIX 50ML 50 ML IV SCH (23:47)
[2024-06-09] MEDS: acetaMINOPHEN 500 MG TABLET PO PRN (23:54)
[2024-06-10] VITALS (103 sets, daily range): BP systolic 84–145; BP diastolic 44–89; PULSE 81–137; RESP 24–25; TEMP 98.2–101.2; O2SAT 99–100
[2024-06-10 01:46] LABS: CREATININE 1.6 mg/dL (0.5-1.3)
[2024-06-10] MEDS ORDERED: LACTATED RINGERS 1000ML IV ONE (03:30)
[2024-06-10 04:24] LABS: ABG BASE EXCESS -6.7 mmol/L (-2.0-3.0); ABG HCO3 17.9 mmol/L (21.0-28.0); ABG OXYGEN SATURATION 99.3 % (94.0-98.0); ABG PCO2 33 mmHg (35-48); CARBON MONOXIDE 0.3 % (0.5-1.5); HHb 0.7; PO2, ARTERIAL BG 251.4 mmHg (83.0-108.0); VENT MODE, BG ACVC (ROOM AIR)
[2024-06-10 04:25] LABS: DEVICE COMMENT MARISSA RN ,RB
[2024-06-10 04:59] LABS: BASOPHILS # (AUTO) 0.03 K/uL (0.00-0.20); BASOPHILS % (AUTO) 0.3 % (0.0-5.0); EOSINOPHILS # (AUTO) 0.02 K/uL (0.00-0.70); EOSINOPHILS % (AUTO) 0.2 % (0.0-8.0); HEMATOCRIT 29.7 % (42-54); IMMATURE GRANULOCYTE ABSOLUTE 0.51 K/uL (0-1); LYMPHOCYTES # (AUTO) 0.9 K/uL (1.0-4.8); LYMPHOCYTES % (AUTO) 8.3 % (21.0-51.0); MEAN CORPUSCULAR HEMOGLOBIN 35.9 pg (27.0-33.0); MEAN CORPUSCULAR VOLUME 105.7 fL (79-99); MONOCYTES # (AUTO) 0.6 K/uL (0.1-1.0); MONOCYTES % (AUTO) 5.5 % (3.0-13.0); NEUTROPHILS # (AUTO) 9.1 K/uL (1.8-7.7); NEUTROPHILS % (AUTO) 81.2 % (40.0-77.0); PLATELET COUNT (AUTO) 59 K/uL (130-400); RED BLOOD CELL COUNT(AUTO) 2.81 MIL/uL (4.50-6.20); RED CELL DISTRIBUTION WIDTH 11.9 % (11.0-15.5); WHITE BLOOD COUNT (AUTO) 11.2 K/uL (4.8-10.8)
[2024-06-10 05:07] LABS: CREATININE 1.5 mg/dL (0.5-1.3); MAGNESIUM 1.9 mg/dL (1.80-2.40)
[2024-06-10 05:25] LABS: B-TYPE NATRIURETIC PEPTIDE 1180 pg/mL (0-100)
[2024-06-10] MEDS: MULTIVITAMIN TABLET PO SCH (07:43)
--- NOTE | 2024-06-10 08:59 | PN ---
[facility] PROGRESS NOTE Date of Service: Jun 10, 2024 Time of Service: 08:40 SUBJECTIVE: [53-year-old male who was admitted due to persistent nausea vomiting, patient also was noted with metabolic acidosis initially was placed on BiPAP support and patient decompensated immediately and was intubated. He is being managed by critical care team. He continues to be intubated on AC mode. Patient is currently on pressor support. NG tube noted with dark maroon output. Prior to hospital admission, patient also reported he had noted black stools. Patient was admitted for sepsis, metabolic acidosis and acute respiratory failure patient is currently with central line, placed yesterday by critical Care team. Patient is for EGD today, continue with pantoprazole drip and a create tight. Continue with serial H&H every 6 hours.] REVIEW OF SYSTEMS CONSTITUTIONAL: Denies fevers, chills, or night sweats. No unintentional weight loss reported. NEUROLOGICAL: Denies headache, amaurosis fugax, motor weakness, sensory deficit, vertigo/spinning sensation, gait abnormalities, or tremors. ENT: No hearing loss, otalgia, otorrhea, rhinitis, rhinorrhea, hoarseness, or sore throat. CARDIOVASCULAR: Denies any exertional angina, dyspnea on exertion, orthopnea, paroxysmal nocturnal dyspnea, palpitations, life-threatening arrhythmias, claudication. PULMONARY: Denies any shortness of breath, cough, phlegm/sputum, hemoptysis, pleuritic chest pain. SLEEP: Denies morning headaches, daytime somnolence or napping. Denies difficulty falling asleep, staying asleep, waking from sleep. Denies knowledge of snoring. GASTROINTESTINAL: Complains of nausea , vomiting , dark stool and abdominal pain Denies any type of dysphagia to either liquids or solids. Denies pyrosis, early satiety, diarrhea, constipation, or changes in stool consistency or caliber. Denies coffee-ground emesis, hematemesis, GENITOURINARY: Denies frequency, urgency, nocturia, hematuria or incontinence (Storage/Irritative symptoms.) Low urinary stream, straining to void, urinary intermittency or hesitancy, splitting of the voiding stream, terminal dribbling. ENDOCRINOLOGIC: Denies polyuria, polydipsia, polyphagia or heat/cold intolerances. HEMATOLOGIC: Denies thrombophilia/previous clots, or coagulopathy/bleeding disorders. ONCOLOGIC: Denies personal history of malignancy. DERMATOLOGIC: Denies rashes or pruritus. PSYCHIATRIC: Denies any suicidal or homicidal ideation. Denies hallucinations. PHYSICAL EXAM GENERAL APPEARANCE: The patient is awake, alert, and oriented, in no acute cardiopulmonary distress. NEUROLOGICAL: Cranial nerves II-XII grossly intact. Motor is 5/5 in bilateral upper and lower extremities proximal to distal. No sensory deficits. HEENT: Face is symmetric. Pupils are equal and reactive. Extraocular movements are intact. NECK: Supple. No JVD. No thyromegaly. No submental, submandibular, pre- /postauricular, occipital or supraclavicular lymphadenopathy. CHEST: Normal chest expansion. No Telemetry. LUNGS: Decreased bilateral breath sounds on the lower bases per auscultation CARDIOVASCULAR: Tachycardic Regular. S1 and S2 normal. No appreciable rubs, murmurs or gallops. ABDOMEN: Soft, nontender, and nondistended. There is no rebound, voluntary gu arding, or rigidity. : Deferred. Gomez. EXTREMITIES: Non-edematous and not cyanotic. No clubbing. Good capillary refill. SKIN: No skin breakdown. Vital Signs (last 8hr) Date Time Temp Pulse Resp B/P (MAP) Pulse Ox O2 Delivery O2 Flow Rate FiO2 06/10/24 08:38 80 06/10/24 08:00 98.6 06/10/24 08:00 100 Ventilator+ 70 06/10/24 06:55 92 70 06/10/24 05:46 93 24 117/67 (84) 100 06/10/24 05:31 91 24 118/66 (83) 100 06/10/24 05:16 93 24 116/70 (85) 100 06/10/24 05:01 91 25 110/61 (77) 100 80 06/10/24 05:00 80 06/10/24 04:46 91 24 108/61 (77) 100 80 06/10/24 04:31 93 24 108/62 (77) 100 06/10/24 04:16 93 24 105/60 (75) 100 06/10/24 04:01 99.5 92 24 108/59 (75) 100 100 06/10/24 04:00 99 Ventilator+ 100 06/10/24 04:00 100 06/10/24 03:46 93 24 104/56 (72) 100 06/10/24 03:31 95 24 102/55 (71) 100 06/10/24 03:16 94 24 99/55 (70) 100 06/10/24 03:01 95 24 101/56 (71) 100 100 06/10/24 02:46 96 24 100/53 (69) 100 06/10/24 02:31 97 24 101/56 (71) 100 06/10/24 02:16 97 24 100/53 (69) 100 06/10/24 02:01 97 24 102/56 (71) 100 100 06/10/24 01:46 98 24 102/55 (71) 100 06/10/24 01:31 97 24 105/54 (71) 100 06/10/24 01:16 99 24 84/44 (57) 100 06/10/24 01:01 99 24 100/51 (67) 100 100 06/10/24 00:46 99 24 103/53 (70) 100 LABS: Laboratory: Test 06/10/24 07:19 06/10/24 04:47 06/10/24 04:23 06/09/24 21:12 Range/Units Whole Blood Glucose 173 H 70-110 MG/DL White Blood Count 11.2 #H 4.8-10.8 K/uL Red Blood Count 2.81 L 4.50-6.20 MIL/uL Hemoglobin 10.1 L 14.0-18.0 g/dL Hematocrit 29.7 L 42-54 % Mean Corpuscular Volume 105.7 H 79-99 fL Mean Corpuscular Hemoglobin 35.9 H 27.0-33.0 pg Mean Corpuscular Hemoglobin Concent 34.0 32.0-36.0 g/dL Red Cell Distribution Width 11.9 11.0-15.5 % Platelet Count 59 #L 130-400 K/uL Mean Platelet Volume 11.2 H 7.5-10.5 fL Immature Granulocyte % (Auto) 4.5 H 0-1 % Neutrophils (%) (Auto) 81.2 H 40.0-77.0 % Lymphocytes (%) (Auto) 8.3 L 21.0-51.0 % Monocytes (%) (Auto) 5.5 3.0-13.0 % Eosinophils (%) (Auto) 0.2 0.0-8.0 % Basophils (%) (Auto) 0.3 0.0-5.0 % Neutrophils # (Auto) 9.1 H 1.8-7.7 K/uL Lymphocytes # (Auto) 0.9 L 1.0-4.8 K/uL Monocytes # (Auto) 0.6 0.1-1.0 K/uL Eosinophils # (Auto) 0.02 0.00-0.70 K/uL Basophils # (Auto) 0.03 0.00-0.20 K/uL Absolute Immature Granulocyte (auto 0.51 0-1 K/uL Nucleated Red Blood Cells 0.0 0.0-0.19 % Platelet Morphology Comment See comments Sodium Level 147 H 136-145 mmol/L Potassium Level 4.0 3.5-5.1 mmol/L Chloride Level 109 101-111 mmol/L Carbon Dioxide Level 18 L 21-32 mmol/L Blood Urea Nitrogen 17 7-18 mg/dL Creatinine 1.5 H 0.5-1.3 mg/dL Glomerular Filtration Rate Calc 55 >90 mL/min Random Glucose 184 H 70-105 mg/dL Total Calcium 6.9 L 8.5-10.1 mg/dL Magnesium Level 1.90 1.80-2.40 mg/dL B-Type Natriuretic Peptide 1180 H 0-100 pg/mL Procalcitonin 9.46 H 0.05-0.5 ng/mL Blood Gas Specimen Type Arterial Arterial Blood pH 7.350 7.350-7.450 Arterial Blood Partial Pressure CO2 33 L 35-48 mmHg Arterial Blood Partial Pressure O2 251.4 H 83.0-108.0 mmHg Arterial Blood HCO3 17.9 L 21.0-28.0 mmol/L Arterial Blood Oxygen Saturation 99.3 H 94.0-98.0 % Arterial Blood Base Excess -6.7 L -2.0-3.0 mmol/L Hemoglobin (Blood Gas) 12.4 L 13.5-17.5 g/dL Sodium (Blood Gas) 143 136-145 MMOL/L Bedside Potassium (Blood Gas) 4.0 3.4-4.5 MMOL/L Bedside Chloride (Blood Gas) 108 H 98-107 MMOL/L Bedside Glucose (Blood Gas) 171 H 65-95 MG/DL Bedside Ionized Calcium (Blood Gas) 1.01 L 1.15-1.33 MMOL/L Bedside Lactic Acid (Blood Gas) 2.06 H 0.36-0.75 MMOL/L Blood Gas Temperature 37.0 35.5-37.0 CELSIUS Blood Gas Respiration Rate 24.0 min. Blood Gas Vent Mode ACVC ROOM AIR FiO2 100.0 % Blood Gas Tidal Volume 425 ml Blood Gas PEEP 5 cm H2O Blood Gas Specimen Comment JOSE G RN ,RB Lactic Acid Level 2.2 0.8-2.5 mmol/L Test 06/09/24 18:01 06/09/24 08:45 06/09/24 07:13 06/09/24 04:37 Range/Units Troponin I High Sensitivity 953 *H 4-75 ng/L Whole Blood Ketones Quantitative 4.5 H 0.0-0.6 mmol/L Ammonia 122 *H 11-32 umol/L Red Blood Cell Morphology See comments D-Dimer Quantitative (PE/DVT) 3989 *H 0-500 ng/mL Hemoglobin A1c 4.6 4.0-6.0 % Estimated Average Glucose (eAG) 85 70-126 mg/dL Total Bilirubin 2.1 H 0.2-1.0 mg/dL Aspartate Amino Transf (AST/SGOT) 74 H 10-37 U/L Alanine Aminotransferase (ALT/SGPT) 29 12-78 U/L Alkaline Phosphatase 102 50-136 U/L Lactate Dehydrogenase 224 81-234 U/L Total Creatine Kinase 145 21-232 U/L C-Reactive Protein, Quantitative 22.50 H 0.5-3.0 mg/L Total Protein 5.4 L 6.0-8.3 g/dL Albumin 2.4 L 3.5-5.0 g/dL Triglycerides Level 120 30-200 mg/dL Cholesterol Level 131 <200 mg/dL LDL Cholesterol 73 0-99 mg/dL HDL Cholesterol 35 29-71 mg/dL Thyroid Stimulating Hormone (TSH) 0.51 0.36-3.74 uIU/mL Prothrombin Time 18.3 #H 9.6-11.6 SEC Prothromb Time International Ratio 1.72 H 0.85-1.15 Activated Partial Thromboplast Time > 139.0 #*H 26.3-35.5 SEC Test 06/09/24 03:54 06/09/24 01:39 06/09/24 00:55 06/09/24 00:23 Range/Units Stool Occult Blood NEGATIVE NEGATIVE Salicylates Level < 2.8 L 2.8-20.0 mg/dL Urine Color LIGHT-YELLOW YELLOW Urine Appearance CLEAR CLEAR Urine pH 6.0 5.0-8.0 Urine Specific [place] 1.012 1.001-1.031 Urine Protein 50 H NEGATIVE mg/dL Urine Glucose (UA) NEGATIVE NEGATIVE mg/dL Urine Ketones 150 H NEGATIVE mg/dL Urine Occult Blood MODERATE H NEGATIVE Urine Nitrate NEGATIVE NEGATIVE Urine Bilirubin NEGATIVE NEGATIVE mg/dL Urine Urobilinogen 0.2 0.2-1.0 mg/dL Urine Leukocyte Esterase NEGATIVE NEGATIVE Melchor/uL Urine RBC 2-5 H 0-1 /HPF Urine WBC 6-10 H 0-1 /HPF Urine Bacteria FEW None Seen /HPF Urine Hyaline Casts 2-5 H 0-1 /LPF /LPF Urine Opiates Screen NEGATIVE NEGATIVE Urine Barbiturates Screen NEGATIVE NEGATIVE Urine Phencyclidine Screen NEGATIVE NEGATIVE Urine Amphetamines Screen NEGATIVE NEGATIVE Urine Benzodiazepines Screen NEGATIVE NEGATIVE Urine Cocaine Screen NEGATIVE NEGATIVE Urine Marijuana (THC) Screen POSITIVE H NEGATIVE Blood Gas Flow-by 25.00 H 0.00-15.00 L/min Test 06/08/24 23:45 Range/Units White Cell Morphology Comment See comments Current Medications Medications (Trade) Dose Ordered Sig/Quan Route PRN Reason Start Time Stop Time Status Last Admin Dose Admin Acetaminophen (TYLenol 500MG TAB) 500 mg Q6H PRN PO TEMP < 101.1 AND/OR HEADACHE 06/09/24 18:00 07/09/24 17:59 06/09/24 23:54 500 MG Artificial Tears (Artificial Tears) 1 DROP OR AD Q8H OU 06/09/24 09:00 07/09/24 08:59 06/10/24 08:01 1 DROP Cefepime HCl (MAXipime 2 gm vial) 2 gm Q8H IVPB 06/09/24 09:00 06/19/24 08:59 06/10/24 08:02 2 GM Chlorhexidine Gluconate (Peridex) 15 ml Q8H MM 06/09/24 09:00 06/23/24 08:59 06/10/24 08:01 15 ML Dextrose/Sodium Chloride 1,000 ml @ 0 mls/hr AD IV 06/09/24 10:00 07/09/24 09:59 Fentanyl Citrate 100 ml @ 2.5 mls/hr PROTOCOL IV 06/09/24 06:30 06/16/24 06:29 06/10/24 04:39 2.5 MLS/HR Folic Acid (FolVITE 5 MG/ML VIAL) 1 mg DAILY IV 06/09/24 18:00 07/09/24 17:59 06/09/24 20:12 1 MG Furosemide (LASix 20MG VIAL) 20 mg Q12H IV 06/09/24 12:00 06/09/24 11:26 DC Furosemide (LASix 20MG VIAL) 20 mg Q6H6 IV 06/09/24 12:00 07/09/24 11:59 06/10/24 05:31 20 MG Heparin Sodium/ Dextrose 250 ml @ 0 mls/hr PROTOCOL IV 06/09/24 03:30 06/09/24 09:45 DC 06/09/24 03:31 10.78 MLS/HR Insulin Human Regular 100 unit/ Sodium Chloride 101 ml @ 0 mls/hr PROTOCOL IV 06/09/24 10:00 07/09/24 09:59 06/09/24 11:41 1 MLS/HR Levofloxacin/ Dextrose (LEvaquIN 750 MG/ D5W 150 ML) 750 mg Q24H IV 06/09/24 06:30 06/09/24 08:29 DC Lorazepam (AtiVAN) 2 mg Q4H PRN IVP ALCOHOL WITHDRAWAL PROTOCOL 06/09/24 18:00 06/16/24 17:59 Lorazepam (AtiVAN) 4 mg Q2H PRN IVP ALCOHOL WITHDRAWAL PROTOCOL 06/09/24 18:00 06/16/24 17:59 Magnesium Sulfate 50 ml @ 0 mls/hr PROTOCOL IV 06/09/24 10:00 07/09/24 09:59 06/09/24 23:47 25 MLS/HR Magnesium Sulfate 50 ml @ 0 mls/hr PROTOCOL PRN IV OTHER [SEE ORDER COMMENTS] 06/09/24 01:00 06/09/24 06:50 DC 06/09/24 01:03 25 MLS/HR Magnesium Sulfate 50 ml @ 0 mls/hr PROTOCOL PRN IV OTHER [SEE ORDER COMMENTS] 06/09/24 07:00 06/09/24 08:35 DC Magnesium Sulfate 50 ml @ 0 mls/hr PROTOCOL PRN IV low magnesium 06/09/24 08:30 06/09/24 09:46 DC Metronidazole/ Sodium Chloride 100 ml @ 100 mls/hr Q8H6 IVPB 06/09/24 14:00 06/19/24 13:59 06/10/24 05:32 100 MLS/HR Midazolam HCl (Midazolam 100mg-0.9% NS 100ml) 100 ml PROTOCOL IV 06/09/24 15:30 07/09/24 15:29 06/10/24 03:41 100 ML Multivitamins Therapeutic (Multivitamin Tablet) 1 tab DAILY PO 06/10/24 09:00 07/10/24 08:59 Norepinephrine Bitartrate (Norepineph 16 Mg/250ml NS Premix) HIGH ALERT Init... PROTOCOL IV 06/09/24 12:30 07/09/24 12:29 06/10/24 01:53 16 MG Octreotide Acetate 1250 mcg/ Sodium Chloride 250 ml @ 0 mls/hr PROTOCOL IV 06/09/24 08:30 07/09/24 08:29 06/09/24 21:53 5 MLS/HR Octreotide Acetate 500 mcg/ Sodium Chloride 100 ml @ 0 mls/hr PROTOCOL IV 06/09/24 04:30 06/09/24 08:13 DC 06/09/24 05:50 5 MLS/HR Ondansetron HCl (zoFRAN 4MG INJ) 4 mg Q4H PRN IV NAUSEA 06/09/24 18:00 07/09/24 17:59 Pantoprazole Sodium 80 mg/ Sodium Chloride 100 ml @ 10 mls/hr Q10H IVP 06/09/24 04:00 07/09/24 03:59 06/09/24 23:55 10 MLS/HR Pharmacy Profile Note (Pharmacy Communication) 1 each PROTOCOL PRN MISC ETOH Withdrawal Score changes 06/09/24 18:00 06/16/24 17:59 Phenylephrine HCl 10 mg/Sodium Chloride 250 ml @ 0 mls/hr PROTOCOL PRN IV PROTOCOL 06/09/24 07:00 07/09/24 06:59 06/09/24 09:27 96 MLS/HR Potassium Chloride 20 meq/ Sodium Chloride 1,010 ml @ 0 mls/hr PROTOCOL IV 06/09/24 10:00 07/09/24 09:59 Potassium Chloride/Dextrose/ Sod Cl 1,000 ml @ 0 mls/hr AD IV 06/09/24 10:00 07/09/24 09:59 Potassium Chloride 100 ml @ 50 mls/hr AD PRN IV POTASSIUM PROTOCOL 06/09/24 07:00 06/09/24 08:34 DC Potassium Chloride 100 ml @ 50 mls/hr AD PRN IV POTASSIUM PROTOCOL 06/09/24 08:30 07/09/24 08:29 06/10/24 02:00 50 MLS/HR Potassium Chloride 100 ml @ 100 mls/hr AD PRN IV POTASSIUM PROTOCOL 06/09/24 08:30 06/09/24 08:41 DC Potassium Chloride (K-Dur/Klor-Con 20meq) 20 meq AD PRN PO POTASSIUM PROTOCOL 06/09/24 08:30 07/09/24 08:29 Potassium Chloride (KCl 10% Elixir 20meq/15ml) 20 meq AD PRN PO POTASSIUM PROTOCOL 06/09/24 08:30 07/09/24 08:29 Sodium Bicarbonate 150 meq/Dextrose 1,150 ml @ 150 mls/hr Q7H40M IVP 06/09/24 00:30 06/09/24 18:11 DC 06/09/24 01:18 150 MLS/HR Sodium Chloride 1,000 ml @ 200 mls/hr PROTOCOL IV 06/09/24 10:00 07/09/24 09:59 Thiamine HCl (Vitamin B-1) 300 mg DAILY IV 06/09/24 18:00 07/09/24 17:59 06/10/24 08:01 300 MG Vancomycin HCl 250 ml @ 125 mls/hr Q12H IV 06/09/24 22:00 06/19/24 21:59 06/09/24 21:08 125 MLS/HR Vancomycin HCl (Vancomycin Protocol) 1 each AD IV 06/09/24 09:00 06/23/24 08:59 Vasopressin 20 units/Sodium Chloride 100 ml @ 0 mls/hr PROTOCOL IV 06/09/24 07:00 07/09/24 06:59 06/09/24 08:20 9 MLS/HR DIAGNOSTICS / RADIOLOGY: [ ] ASSESSMENT: Acute respiratory failure POA Elevated troponin R/O ACS POA Elevated D-dimer of 3989 Metabolic acidosis POA Acute blood loss anemia POA Acute upper and lower GI bleed, POA Acute thrombocytopenia POA Acute on chronic diastolic CHF POA Hyperglycemia POA Hypomagnesemia POA Cannabis abuse POA Active alcohol drinker POA Suspected urinary tract infection POA Possible bilateral lung pneumonia POA Hypertension POA Suspected GI bleed POA PLAN: Continue ICU admission Appreciate critical Care team, patient currently intubated, on AC mode and on norepinephrine drip and on Peridex Patient will continued to be NPO, NG tube in place to LIS Patient continue IV antibiotics on vancomycin, cefepime and metronidazole Patient will continue Protonix and Sandostatin drip Continue to monitor electrolytes and replete as necessary Gastroenterology recommended EGD today Appreciate recommendations from Cardiology, elevated troponin is likely in the setting of acute respiratory failure and suspected GI bleed, no plans for invasive cardiac workup at this time We will continue recommendations of Lasix 20 mg IV every 6 hours. We will repeat labs in the morning Case was discussed with Dr. Norris, above plan was formulated Code Status: Full Resuscitation Disposition: TBD Prognosis: Guarded NEURO: Minimize central acting medications as possible. Fall Precautions. Well lighted room through the day and minimize interruptions through the night to prevent acute delirium. PULMONARY: Supplemental 02 as needed BiPAP as necessary, for respiratory distress Titrate Fio2 to keep Spo2 > or = 90% DuoNebs and CPT as needed IS hourly while awake for pulmonary hygiene Out of bed to chair as tolerated VAP Bundle Maintain aspiration precautions at all times CARDIOVASCULAR: Follow hemodynamics. Vital signs per facility protocol GI & NUTRITION: Continue nutritional support Aspirations precautions Prokinetic agents and laxatives as needed KIDNEYS & ELECTROLYTES: Strict monitoring of intake and output Daily weights Avoid nephrotoxic agents Monitor electrolytes and replace as needed Goal urine output of 30mL/hr or 0.5mL/kg/hr Medications to be dosed according to renal function. Avoid contrast if possible ENDOCRINE: Maintain blood glucose between 100-180 at all times. Insulin sliding scale for blood glucose management Hypoglycemia and hyperglycemia protocol in place INFECTIOUS DISEASE: Trend temperature, WBC and procalcitonin level Follow cultures, deescalate antibiotics as soon as possible. Panculture if new onset fever HEMATOLOGY & COAGULATION: Monitor H&H. Keep Hgb > 7 Transfuse 1 unit of PRBC for Hgb < 7 Transfuse 1 pack of platelets of platelets < 20, 000 Watch for any signs and symptoms of bleeding SKIN: Pressure ulcer prevention per facility protocol Specialty mattress as needed ] ATTESTATION BY PHYSICIAN I have seen and examined the patient. I reviewed the documentation, medical decision making, and treatment plan as noted by the mid-level provider above. I agree with the findings and plan of care. LAUREN NORRIS MD, [facility] Jun 10, 2024 08:58
--- NOTE | 2024-06-10 09:13 | HMCIMG ---
US VENOUS DOPPLER BILATERAL REASON: Rule out DVT COMPARISON: None Technique: Bilateral venous doppler ultrasound was performed with spectral analysis and color flow imaging technique. FINDINGS: There is a normal appearance of the common femoral, deep femoral, the profunda femoris and popliteal veins. Proximal calf veins appear normal as well. There is normal response to compression and augmentation. There is no evidence of deep venous thrombosis. IMPRESSION: Normal bilateral lower extremity venous Doppler ultrasound.
--- NOTE | 2024-06-10 09:22 | HMCIMG ---
US ABDOMINAL COMPLETE REASON: Assist for liver cirrhosis and hydronephrosis COMPARISON: None FINDINGS: There is moderate fatty infiltration of the liver. There are no focal mass lesions. There is enlarged at 17 cm.There is a normal-appearing gallbladder. Kidneys appear normal in size and appearance. There is no evidence of mass, stone or hydronephrosis. Spleen and common duct appear normal. Aorta and inferior vena cava appear normal. The pancreas appears normal as well. Portal vein is patent with a normal direction of flow. There is a small amount of ascites visible in all 4 quadrants. IMPRESSION: 1. Moderate to marked hepatic steatosis, the liver is enlarged at 17 cm. 2. Ascites. 3. Otherwise unremarkable exam including normal appearance of the spleen.
--- NOTE | 2024-06-10 09:59 | HMCIMG ---
CHEST 1VW REASON: Intubated COMPARISON: 06/09/2024 FINDINGS: There is pulmonary edema, unchanged to somewhat improved. Heart size is stable. Tubes and lines remain in good position. IMPRESSION: 1. Pulmonary edema, unchanged to somewhat improved.
[2024-06-10 10:16] LABS: CREATININE 1.6 mg/dL (0.5-1.3)
--- NOTE | 2024-06-10 10:18 | PN ---
[facility] PROGRESS NOTE Date Patient Seen: Jun 10, 2024 Time of Visit: 09:58 Supervising Physician: Duane Chacko MD Primary Care Physician: Self Referral, Outpatient Specialists: Inpatient Consults: Dr Mena. 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 He has less pressor support only on Levophed today at 0.4 micrograms/kilogram per minute. He is still critically ill. Current vital signs and blood pressure 128/72 respiratory rate of 24 saturating 95% with FiO2 of 70%, heart rate 96 beats per minute, he developed a fever yesterday of 101.1 in the last 24 hours. He continues antibiotics with vanco cefepime and Flagyl. Sister is at the bedside who ans wered a few questions in regards to his medical history. She reports she has not been very informed of patient for the last three years but she reports patient has been told he has liver cirrhosis at least three years ago. He was told that if he did in quit drinking that he could within the next year. She also reports patient has heart problems and at one point he was placed on a LifeVest for heart failure. Urine output 2.3 L with a balance of-483 mL. On laboratory WBCs are 11.2 H&H is 10.1/29.7 seemed to be stable. Platelet count 59 K decreased from yesterday which was 91 K. Latest ABG with a pH of 7.35 pCO2 of 33 PO2 of 251 and bicarb of 17.9 base excess-6.7 improvement from yesterday. Ventilator Settings Adjusted To Assist Control Volume Control Tidal Volume Of 425 Respiratory Rate Of 24 Fio2 Of 70% And Peep Of 5. 2D echo shows EF of 40% with grade 1 diastolic dysfunction. Venous ultrasound with normal bilateral lower extremity venous Doppler. Ultrasound of the abdomen with moderate to marked hepatic steatosis, the liver is enlarged at 17 cm., ascites otherwise unremarkable exam including no abnormal per has been. Patient has a MELD score of 19 point which is 19.6% of estimated 3month mortality. EGD for today has been canceled per GI due to pt still on pressor support. Pt's sister was at the bedside and has requested for pt code status to be changed to DNR. REVIEW OF SYSTEMS: Unable to perform due to patient's intubated. PHYSICAL EXAM: GENERAL: Intubated and sedated. HEENT: Sclera non icteric, dry mucosa NECK: Supple, no JVD, trachea midline LUNGS: Diminished breath sounds bilaterally. No wheezes HEART: Regular rate and rhythm. Normal S1 and S2, without murmurs ABD: Abdomen soft, nontender. Bowel sounds present EXT: No clubbing cyanosis , swelling to bilateral lower extremities. NEURO: Intubated and sedated. Vital Signs (last 8hr) Date Time Temp Pulse Resp B/P (MAP) Pulse Ox O2 Delivery O2 Flow Rate FiO2 06/10/24 08:45 105 24 128/72 (90) 100 06/10/24 08:38 80 06/10/24 08:30 102 24 126/73 (90) 100 06/10/24 08:15 96 24 123/73 (90) 100 06/10/24 08:00 98.6 06/10/24 08:00 98.6 95 24 122/71 (88) 100 06/10/24 08:00 100 Ventilator+ 70 06/10/24 07:45 96 24 123/74 (90) 100 06/10/24 07:30 93 24 121/68 (85) 100 06/10/24 07:15 93 24 121/70 (87) 100 06/10/24 07:00 91 24 118/68 (85) 100 06/10/24 06:55 92 70 06/10/24 06:45 91 24 100 06/10/24 05:46 93 24 117/67 (84) 100 06/10/24 05:31 91 24 118/66 (83) 100 06/10/24 05:16 93 24 116/70 (85) 100 06/10/24 05:01 91 25 110/61 (77) 100 80 06/10/24 05:00 80 06/10/24 04:46 91 24 108/61 (77) 100 80 06/10/24 04:31 93 24 108/62 (77) 100 06/10/24 04:16 93 24 105/60 (75) 100 06/10/24 04:01 99.5 92 24 108/59 (75) 100 100 06/10/24 04:00 99 Ventilator+ 100 06/10/24 04:00 100 06/10/24 03:46 93 24 104/56 (72) 100 06/10/24 03:31 95 24 102/55 (71) 100 06/10/24 03:16 94 24 99/55 (70) 100 06/10/24 03:01 95 24 101/56 (71) 100 100 06/10/24 02:46 96 24 100/53 (69) 100 06/10/24 02:31 97 24 101/56 (71) 100 06/10/24 02:16 97 24 100/53 (69) 100 06/10/24 02:01 97 24 102/56 (71) 100 100 LABS: Hematology Labs: Test 06/10/24 04:47 06/09/24 07:13 06/08/24 23:45 Range/Units White Blood Count 11.2 #H 4.8-10.8 K/uL Red Blood Count 2.81 L 4.50-6.20 MIL/uL Hemoglobin 10.1 L 14.0-18.0 g/dL Hematocrit 29.7 L 42-54 % Mean Corpuscular Volume 105.7 H 79-99 fL Mean Corpuscular Hemoglobin 35.9 H 27.0-33.0 pg Mean Corpuscular Hemoglobin Concent 34.0 32.0-36.0 g/dL Red Cell Distribution Width 11.9 11.0-15.5 % Platelet Count 59 #L 130-400 K/uL Mean Platelet Volume 11.2 H 7.5-10.5 fL Immature Granulocyte % (Auto) 4.5 H 0-1 % Neutrophils (%) (Auto) 81.2 H 40.0-77.0 % Lymphocytes (%) (Auto) 8.3 L 21.0-51.0 % Monocytes (%) (Auto) 5.5 3.0-13.0 % Eosinophils (%) (Auto) 0.2 0.0-8.0 % Basophils (%) (Auto) 0.3 0.0-5.0 % Neutrophils # (Auto) 9.1 H 1.8-7.7 K/uL Lymphocytes # (Auto) 0.9 L 1.0-4.8 K/uL Monocytes # (Auto) 0.6 0.1-1.0 K/uL Eosinophils # (Auto) 0.02 0.00-0.70 K/uL Basophils # (Auto) 0.03 0.00-0.20 K/uL Absolute Immature Granulocyte (auto 0.51 0-1 K/uL Nucleated Red Blood Cells 0.0 0.0-0.19 % Platelet Morphology Comment See comments Red Blood Cell Morphology See comments White Cell Morphology Comment See comments Chemistry Labs: Test 06/10/24 09:19 06/10/24 04:47 06/09/24 21:12 06/09/24 18:01 Range/Units Whole Blood Glucose 171 H 70-110 MG/DL Sodium Level 147 H 136-145 mmol/L Potassium Level 4.0 3.5-5.1 mmol/L Chloride Level 109 101-111 mmol/L Carbon Dioxide Level 18 L 21-32 mmol/L Blood Urea Nitrogen 17 7-18 mg/dL Creatinine 1.5 H 0.5-1.3 mg/dL Glomerular Filtration Rate Calc 55 >90 mL/min Random Glucose 184 H 70-105 mg/dL Total Calcium 6.9 L 8.5-10.1 mg/dL Magnesium Level 1.90 1.80-2.40 mg/dL B-Type Natriuretic Peptide 1180 H 0-100 pg/mL Procalcitonin 9.46 H 0.05-0.5 ng/mL Lactic Acid Level 2.2 0.8-2.5 mmol/L Troponin I High Sensitivity 953 *H 4-75 ng/L Test 06/09/24 08:45 06/09/24 07:13 Range/Units Whole Blood Ketones Quantitative 4.5 H 0.0-0.6 mmol/L Ammonia 122 *H 11-32 umol/L Hemoglobin A1c 4.6 4.0-6.0 % Estimated Average Glucose (eAG) 85 70-126 mg/dL Total Bilirubin 2.1 H 0.2-1.0 mg/dL Aspartate Amino Transf (AST/SGOT) 74 H 10-37 U/L Alanine Aminotransferase (ALT/SGPT) 29 12-78 U/L Alkaline Phosphatase 102 50-136 U/L Lactate Dehydrogenase 224 81-234 U/L Total Creatine Kinase 145 21-232 U/L C-Reactive Protein, Quantitative 22.50 H 0.5-3.0 mg/L Total Protein 5.4 L 6.0-8.3 g/dL Albumin 2.4 L 3.5-5.0 g/dL Triglycerides Level 120 30-200 mg/dL Cholesterol Level 131 <200 mg/dL LDL Cholesterol 73 0-99 mg/dL HDL Cholesterol 35 29-71 mg/dL Thyroid Stimulating Hormone (TSH) 0.51 0.36-3.74 uIU/mL Coagulation Labs: Test 06/09/24 07:13 06/09/24 04:37 Range/Units D-Dimer Quantitative (PE/DVT) 3989 *H 0-500 ng/mL Prothrombin Time 18.3 #H 9.6-11.6 SEC Prothromb Time International Ratio 1.72 H 0.85-1.15 Activated Partial Thromboplast Time > 139.0 #*H 26.3-35.5 SEC DIAGNOSTICS / RADIOLOGY RESULTS: [ ] Signed PATIENT: CHRIS CHOI MR#: [id number] : 1970 SEX: M AGE: 53 LOCATION: 2BH ORDER 2300 STATUS: ADM IN REPORT#: [id number] SERVICE 0600 REASON: Intubated ORDERING PHYSICIAN: LARISSA ROGERS PROCEDURE: CXR1VW - CHEST 1VW CHEST 1VW REASON: Intubated COMPARISON: 06/09/2024 FINDINGS: There is pulmonary edema, unchanged to somewhat improved. Heart size is stable. Tubes and lines remain in good position. IMPRESSION: 1. Pulmonary edema, unchanged to somewhat improved. DICTATED BY: AGUSTINA ROSALES MD DATE: 06/10/2452 ELECTRONICALLY SIGNED BY: AGUSTINA ROSALES MD DATE: 06/10/2459 PLAN NEURO: Minimize central acting medications as possible. Fall Precautions. Well lighted room through the day and minimize interruptions through the night to prevent acute delirium. we will keep sedated for today due to still in acidosis, ammonia elevation and requiring high FIO2 Lactulose enema and recheck ammonia in am PULMONARY: Supplemental 02 as needed Titrate Fio2 to keep Spo2 > or = 90% DuoNebs and CPT as needed IS hourly while awake for pulmonary hygiene Out of bed to chair as tolerated VAP Bundle Vent/BIPAP Settings: Assist-control volume control with tidal volume of 425 respiratory rate of 24 FiO2 70% and PEEP of 5. We will be adjusting ventilator accordingly to saturations and ABGs. CARDIOVASCULAR: Follow hemodynamics. Titrate vasopressor to keep MAP >65 or systolic blood pressure >95mmHg Cardiac monitoring Drips:: Levophed weaning Sandostatin Protonix Versed Fentanyl LINES: RT IJ CVC PIV GI & NUTRITION: Continue nutritional support Aspirations precautions Prokinetic agents and laxatives as needed To low intermittent suction Per GI EGD canceled due to pressor support Continue Sandostatin and Protonix drip KIDNEYS & ELECTROLYTES: Strict monitoring of intake and output Daily weights Avoid nephrotoxic agents Monitor electrolytes and replace as needed Goal urine output of 30mL/hr or 0.5mL/kg/hr Monitor electrolytes and replace accordingly ENDOCRINE: Goal blood glucose between 100-180 at all times. Insulin drip per DKA protocol BNP q.4 hours per DKA protocol. INFECTIOUS DISEASE: Trend temperature. [place]-culture if febrile. Micro: Urine culture Blood cultures Respiratory cultures Antibiotics: Vancomycin Cefepime Flagyl HEMATOLOGY & COAGULATION: Monitor H&H. Keep Hgb > 7 Transfuse 1 unit of PRBC for Hgb < 7 Transfuse 1 pack of platelets of platelets < 20, 000 Watch for any signs and symptoms of bleeding SKIN: Pressure ulcer prevention per facility protocol Rehab: PT/OT Prophylaxis: GI: Protonix drip DVT: SCDs due to GI bleed. Code Status: Full Resuscitation Disposition: ICU Other: Total patient care time exceeds 60 minutes excluding all procedures. Case was discussed and seen with my supervising physician. The above plan was formulated and agreed upon. LARISSA ROGERS Jun 10, 2024 10:18
[2024-06-10 10:35] LABS: % IRON SATURATION 6.5 % (30-44)
[2024-06-10] MEDS: LACTULOSE 20 GM/30 ML UDCUP PR ONE (11:11)
[2024-06-10 11:47] LABS: HIV 1&2 ANTIBODY Non-Reactive (Negative); HIV-1 p24 Antigen Non-Reactive (Negative)
--- NOTE | 2024-06-10 13:14 | CONS ---
CONSULT NOTE: This is a 53-year-old male past medical history of hypertension and CHF who was brought by EMS to the ED for complaints of persistent nausea,vomiting and shortness of breath and symptoms have been ongoing for 3 days and patient reports he has nopt been able to take his medication due to above reasons.Patient states he drinks Vodka 2 shots per night and last consumption was 3 days ago. While in the ER patient's shortness of breath became worse that he needed to be placed on Bipap..Upon ER arrival V/S T98.4,HR130, respiration 18 and BP 134/87 Sat98% RA. Seen and examined patient in the ER on Bipap,heparin and Sodium bicarb drip.Patient is awake,alert and coherent .Patient reports having abdominal pain located around mid abdomen and states he has passed black stool today. Patient denies fever,chills,sorethroat,chest pain and palpitation .Latest vital signs temperature 97.2, heart rate 128, respiration 28, blood pressure 142/85 saturation 97% on BiPAP 40% FiO2. Labs: WBC 10.24, neutrophils 85.6, hemoglobin 11.6, hematocrit 36.4 platelet count 96. Sodium 138, potassium 3.8, chloride 95, CO2 seven, GFR 71, glucose 139 total calcium 7.7 magnesium 1.5 BNP 957. Troponin 441 to 600 to 678. Urine toxicology positive with marijuana. Urinalysis remarkable for protein, ketones, urine occult blood, urine RBC 2-5, urine WBC 6-10 urine bacteria few and hyaline casts 2-5. Fecal occult blood negative. EKG result revealed sinus tachycardia heart rate 124 Influenza a and B negative SARs COVID negative. Chest x-ray official result is still pending at this time as per ER initial reading infiltrates bilateral concerning for pneumonia. While in the ER patient received Protonix 40 mg IV, heparin IV and drip, Valium 10 mg IV, sodium bicarb drip at 150 mL/hour, sodium bicarb, Lasix 40 mg IV and magnesium sulfate.As per ER MD,Heparin drip will be stopped since patient is being suspected for GI bleed Sandostatin and Protonix drip are going to be started.We will admit patient in ICU for further medical management. Addendum @ around 0600 the undersigned was notified that patient is going to be intubated by ER MD . REVIEW OF SYSTEMS CONSTITUTIONAL: Denies fevers, chills, or night sweats. No unintentional weight loss reported. NEUROLOGICAL: Denies headache, amaurosis fugax, motor weakness, sensory deficit, vertigo/spinning sensation, gait abnormalities, or tremors. ENT: No hearing loss, otalgia, otorrhea, rhinitis, rhinorrhea, hoarseness, or sore throat. CARDIOVASCULAR: Denies any exertional angina, dyspnea on exertion, orthopnea, paroxysmal nocturnal dyspnea, palpitations, life-threatening arrhythmias, claudication. PULMONARY: Denies any shortness of breath, cough, phlegm/sputum, hemoptysis, pleuritic chest pain. SLEEP: Denies morning headaches, daytime somnolence or napping. Denies difficulty falling asleep, staying asleep, waking from sleep. Denies knowledge of snoring. GASTROINTESTINAL: Complains of nausea , vomiting , dark stool and abdominal pain Denies any type of dysphagia to either liquids or solids. Denies pyrosis, early satiety, diarrhea, constipation, or changes in stool consistency or caliber. Denies coffee-ground emesis, hematemesis, GENITOURINARY: Denies frequency, urgency, nocturia, hematuria or incontinence (Storage/Irritative symptoms.) Low urinary stream, straining to void, urinary intermittency or hesitancy, splitting of the voiding stream, terminal dribbling. ENDOCRINOLOGIC: Denies polyuria, polydipsia, polyphagia or heat/cold intolerances. HEMATOLOGIC: Denies thrombophilia/previous clots, or coagulopathy/bleeding disorders. ONCOLOGIC: Denies personal history of malignancy. DERMATOLOGIC: Denies rashes or pruritus. PSYCHIATRIC: Denies any suicidal or homicidal ideation. Denies hallucinations. PAST MEDICAL HISTORY: [ Hypertension and CHF] PAST SURGICAL HISTORY: [ Patient denies ] PAST SOCIAL HISTORY: [ Patient lives alone. Patient admits to smoking marijuana and drinking vodka two shots per night last consumption was three days ago. Patient denies cocaine use] FAMILY HISTORY: [ Noncontributory ] Coded Allergies: No Known Drug Allergies (Unverified Allergy, Unknown, 06/09/24) PHYSICAL EXAM GENERAL APPEARANCE: The patient is awake, alert, and oriented, in no acute cardiopulmonary distress. NEUROLOGICAL: Cranial nerves II-XII grossly intact. Motor is 5/5 in bilateral upper and lower extremities proximal to distal. No sensory deficits. HEENT: Face is symmetric. Pupils are equal and reactive. Extraocular movements are intact. NECK: Supple. No JVD. No thyromegaly. No submental, submandibular, pre- /postauricular, occipital or supraclavicular lymphadenopathy. CHEST: Normal chest expansion. No Telemetry. LUNGS: Decreased bilateral breath sounds on the lower bases per auscultation CARDIOVASCULAR: Tachycardic Regular. S1 and S2 normal. No appreciable rubs, murmurs or gallops. ABDOMEN: Soft, nontender, and nondistended. There is no rebound, voluntary guarding, or rigidity. : Deferred. Gomez. EXTREMITIES: Non-edematous and not cyanotic. No clubbing. Good capillary refill. SKIN: No skin breakdown. Assessment 1. Thrombocytopenia 2. Anemia 3. Respiratory failure with the patient is intubated 4. Alcohol abuse 5. Drug abuse 6. Hypertension 7. Suspected GI bleeding Plan 1. Peripheral blood smear showed red blood cells to be Microcytic hypochromic red blood cell consistent with iron deficiency anemia.. There was no fragment cell or schistocyte. There is no teardrop cell. There is no rouleaux p henomena. There is no pelger-Huet cell. White blood cell with no blasts. Platelet count is decreased. There is large platelet consistent with peripheral consumption of the platelet most likely due to cirrhosis of the liver and splenomegaly. 2. There was hypersegmented neutrophils. This patient to be started on folic acid 1 mg p.o. daily and vitamin B12 1000 mcg p.o. daily. 3. Patient to have PTT done. If PTT more than 3045 then this patient will need maybe fresh frozen plasma especially the patient have bleeding. 4. No need for platelet transfusion at this time 5. This patient prognosis poor with the patient have multiple comorbidity. 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 6. There is no need for anticoagulation in this patient especially his ble eding. 7. This patient could benefit from IV iron daily while in the hospital. 8. The GI should scope this patient with EGD and possibly colonoscopy later on but because of his on pressors that is why maybe they are not doing it at this timeNormal anatomy WNL abdomen presents with his tiny Laboratory Tests Test 06/09/24 13:35 06/09/24 14:57 06/09/24 16:30 06/09/24 17:49 Whole Blood Glucose 176 MG/DL (70-110) H 158 MG/DL (70-110) H 166 MG/DL (70-110) H 179 MG/DL (70-110) H Test 06/09/24 18:01 06/09/24 21:11 06/09/24 21:12 06/09/24 22:43 Hemoglobin 10.6 g/dL (14.0-18.0) L Hematocrit 31.8 % (42-54) L Sodium Level 147 mmol/L (136-145) H 143 mmol/L (136-145) Potassium Level 3.1 mmol/L (3.5-5.1) L 3.9 mmol/L (3.5-5.1) Chloride Level 107 mmol/L (101-111) 105 mmol/L (101-111) Carbon Dioxide Level 21 mmol/L (21-32) 21 mmol/L (21-32) Blood Urea Nitrogen 15 mg/dL (7-18) 15 mg/dL (7-18) Creatinine 1.3 mg/dL (0.5-1.3) 1.6 mg/dL (0.5-1.3) H Glomerular Filtration Rate Calc 65 mL/min (>90) 51 mL/min (>90) Random Glucose 165 mg/dL (70-105) H 165 mg/dL (70-105) H Lactic Acid Level 2.4 mmol/L (0.8-2.5) 2.2 mmol/L (0.8-2.5) Total Calcium 6.8 mg/dL (8.5-10.1) L 6.5 mg/dL (8.5-10.1) L Troponin I High Sensitivity 953 ng/L (4-75) *H Procalcitonin 13.75 ng/mL (0.05-0.5) H Whole Blood Glucose 178 MG/DL (70-110) H 188 MG/DL (70-110) H Magnesium Level 1.30 mg/dL (1.80-2.40) L Test 06/10/24 00:47 06/10/24 01:33 06/10/24 02:45 06/10/24 04:23 Whole Blood Glucose 151 MG/DL (70-110) H 173 MG/DL (70-110) H Sodium Level 144 mmol/L (136-145) Potassium Level 3.0 mmol/L (3.5-5.1) *L Chloride Level 105 mmol/L (101-111) Carbon Dioxide Level 19 mmol/L (21-32) L Blood Urea Nitrogen 16 mg/dL (7-18) Creatinine 1.6 mg/dL (0.5-1.3) H Glomerular Filtration Rate Calc 51 mL/min (>90) Random Glucose 176 mg/dL (70-105) H Total Calcium 6.5 mg/dL (8.5-10.1) L Blood Gas Specimen Type Arterial Arterial Blood pH 7.350 (7.350-7.450) Arterial Blood Partial Pressure CO2 33 mmHg (35-48) L Arterial Blood Partial Pressure O2 251.4 mmHg (83.0-108.0) H Arterial Blood HCO3 17.9 mmol/L (21.0-28.0) L Arterial Blood Oxygen Saturation 99.3 % (94.0-98.0) H Arterial Blood Base Excess -6.7 mmol/L (-2.0-3.0) L Hemoglobin (Blood Gas) 12.4 g/dL (13.5-17.5) L Sodium (Blood Gas) 143 MMOL/L (136-145) Bedside Potassium (Blood Gas) 4.0 MMOL/L (3.4-4.5) Bedside Chloride (Blood Gas) 108 MMOL/L (98-107) H Bedside Glucose (Blood Gas) 171 MG/DL (65-95) H Bedside Ionized Calcium (Blood Gas) 1.01 MMOL/L (1.15-1.33) L Bedside Lactic Acid (Blood Gas) 2.06 MMOL/L (0.36-0.75) H Blood Gas Temperature 37.0 CELSIUS (35.5-37.0) Blood Gas Respiration Rate 24.0 min. Blood Gas Vent Mode ACVC (ROOM AIR) FiO2 100.0 % Blood Gas Tidal Volume 425 ml Blood Gas PEEP 5 cm H2O Blood Gas Specimen Comment JOSE G MURPHY ,RB Test 06/10/24 04:47 06/10/24 07:19 06/10/24 09:19 06/10/24 09:57 White Blood Count 11.2 K/uL (4.8-10.8) #H Red Blood Count 2.81 MIL/uL (4.50-6.20) L Hemoglobin 10.1 g/dL (14.0-18.0) L Hematocrit 29.7 % (42-54) L Mean Corpuscular Volume 105.7 fL (79-99) H Mean Corpuscular Hemoglobin 35.9 pg (27.0-33.0) H Mean Corpuscular Hemoglobin Concent 34.0 g/dL (32.0-36.0) Red Cell Distribution Width 11.9 % (11.0-15.5) Platelet Count 59 K/uL (130-400) #L Mean Platelet Volume 11.2 fL (7.5-10.5) H Immature Granulocyte % (Auto) 4.5 % (0-1) H Neutrophils (%) (Auto) 81.2 % (40.0-77.0) H Lymphocytes (%) (Auto) 8.3 % (21.0-51.0) L Monocytes (%) (Auto) 5.5 % (3.0-13.0) Eosinophils (%) (Auto) 0.2 % (0.0-8.0) Basophils (%) (Auto) 0.3 % (0.0-5.0) Neutrophils # (Auto) 9.1 K/uL (1.8-7.7) H Lymphocytes # (Auto) 0.9 K/uL (1.0-4.8) L Monocytes # (Auto) 0.6 K/uL (0.1-1.0) Eosinophils # (Auto) 0.02 K/uL (0.00-0.70) Basophils # (Auto) 0.03 K/uL (0.00-0.20) Absolute Immature Granulocyte (auto 0.51 K/uL (0-1) Nucleated Red Blood Cells 0.0 % (0.0-0.19) Platelet Morphology Comment See comments Sodium Level 147 mmol/L (136-145) H 145 mmol/L (136-145) Potassium Level 4.0 mmol/L (3.5-5.1) 3.0 mmol/L (3.5-5.1) *L Chloride Level 109 mmol/L (101-111) 107 mmol/L (101-111) Carbon Dioxide Level 18 mmol/L (21-32) L 23 mmol/L (21-32) Blood Urea Nitrogen 17 mg/dL (7-18) 18 mg/dL (7-18) Creatinine 1.5 mg/dL (0.5-1.3) H 1.6 mg/dL (0.5-1.3) H Glomerular Filtration Rate Calc 55 mL/min (>90) 51 mL/min (>90) Random Glucose 184 mg/dL (70-105) H 186 mg/dL (70-105) H Total Calcium 6.9 mg/dL (8.5-10.1) L 6.8 mg/dL (8.5-10.1) L Magnesium Level 1.90 mg/dL (1.80-2.40) B-Type Natriuretic Peptide 1180 pg/mL (0-100) H Procalcitonin 9.46 ng/mL (0.05-0.5) H Whole Blood Glucose 173 MG/DL (70-110) H 171 MG/DL (70-110) H Erythrocyte Sedimentation Rate 13 MM/HR (0-20) Fibrinogen 346 mg/dL (180-350) Iron Level 10 mcg/dL (65-175) L Total Iron Binding Capacity 153 mcg/dL (250-450) L Percent Iron Saturation 6.5 % (30-44) L Vitamin B12 Level 1187 pg/mL (193-986) H HIV (1&2) Antibody Non-Reactive (Negative) HIV P24 Antigen, Qualitative Non-Reactive (Negative) Test 06/10/24 11:18 06/10/24 12:23 Whole Blood Glucose 150 MG/DL (70-110) H 138 MG/DL (70-110) H LAB RESULTS 06/10/24 12:23: Whole Blood Glucose 138H 06/10/24 09:57: Erythrocyte Sedimentation Rate 13, Fibrinogen 346, Sodium Level 145, Potassium Level 3.0*L, Chloride Level 107, Carbon Dioxide Level 23, Blood Urea Nitrogen 18, Creatinine 1.6H, Glomerular Filtration Rate Calc 51, Random Glucose 186H, Total Calcium 6.8L, Iron Level 10L, Total Iron Binding Capacity 153L, Percent Iron Saturation 6.5L, Vitamin B12 Level 1187H, HIV (1&2) Antibody Non-Reactive, HIV P24 Antigen, Qualitative Non-Reactive 06/10/24 04:47: White Blood Count 11.2#H, Red Blood Count 2.81L, Hemoglobin 10.1L, Hematocrit 29.7L, Mean Corpuscular Volume 105.7H, Mean Corpuscular Hemoglobin 35.9H, Mean Corpuscular Hemoglobin Concent 34.0, Red Cell Distribution Width 11.9, Platelet Count 59#L, Mean Platelet Volume 11.2H, Immature Granulocyte % (Auto) 4.5H, Neutrophils (%) (Auto) 81.2H, Lymphocytes (%) (Auto) 8.3L, Monocytes (%) (Auto) 5.5, Eosinophils (%) (Auto) 0.2, Basophils (%) (Auto) 0.3, Neutrophils # (Auto) 9.1H, Lymphocytes # (Auto) 0.9L, Monocytes # (Auto) 0.6, Eosinophils # (Auto) 0.02, Basophils # (Auto) 0.03, Absolute Immature Granulocyte (auto 0.51, Nucleated Red Blood Cells 0.0, Platelet Morphology Comment See comments, Magnesium Level 1.90, B-Type Natriuretic Peptide 1180H, Procalcitonin 9.46H 06/10/24 04:23: Blood Gas Specimen Type Arterial, Arterial Blood pH 7.350, Arterial Blood Partial Pressure CO2 33L, Arterial Blood Partial Pressure O2 251.4H, Arterial Blood HCO3 17.9L, Arterial Blood Oxygen Saturation 99.3H, Arterial Blood Base Excess -6.7L, Hemoglobin (Blood Gas) 12.4L, Sodium (Blood Gas) 143, Bedside Potassium (Blood Gas) 4.0, Bedside Chloride (Blood Gas) 108H, Bedside Glucose (Blood Gas) 171H, Bedside Ionized Calcium (Blood Gas) 1.01L, Bedside Lactic Acid (Blood Gas) 2.06H, Blood Gas Temperature 37.0, Blood Gas Respiration Rate 24.0, Blood Gas Vent Mode ACVC, FiO2 100.0, Blood Gas Tidal Volume 425, Blood Gas PEEP 5, Blood Gas Specimen Comment JOSE G MURPHY ,RB 06/09/24 21:12: Lactic Acid Level 2.2 06/09/24 18:01: Troponin I High Sensitivity 953*H 06/09/24 08:45: Whole Blood Ketones Quantitative 4.5H, Ammonia 122*H 06/09/24 07:13: Red Blood Cell Morphology See comments, D-Dimer Quantitative (PE/DVT) 3989*H, Hemoglobin A1c 4.6, Estimated Average Glucose (eAG) 85, Total Bilirubin 2.1H, Aspartate Amino Transf (AST/SGOT) 74H, Alanine Aminotransferase (ALT/SGPT) 29, Alkaline Phosphatase 102, Lactate Dehydrogenase 224, Total Creatine Kinase 145, C-Reactive Protein, Quantitative 22.50H, Total Protein 5.4L, Albumin 2.4L, Triglycerides Level 120, Cholesterol Level 131, LDL Cholesterol 73, HDL Cholesterol 35, Thyroid Stimulating Hormone (TSH) 0.51 06/09/24 04:37: Prothrombin Time 18.3#H, Prothromb Time International Ratio 1.72H, Activated Partial Thromboplast Time > 139.0#*H 06/09/24 03:54: Stool Occult Blood NEGATIVE 06/09/24 01:39: Salicylates Level < 2.8L 06/09/24 00:55: Urine Color LIGHT-YELLOW, Urine Appearance CLEAR, Urine pH 6.0, Urine Specific [place] 1.012, Urine Protein 50H, Urine Glucose (UA) NEGATIVE, Urine Ketones 150H, Urine Occult Blood MODERATEH, Urine Nitrate NEGATIVE, Urine Bilirubin NEGATIVE, Urine Urobilinogen 0.2, Urine Leukocyte Esterase NEGATIVE, Urine RBC 2-5H, Urine WBC 6-10H, Urine Bacteria FEW, Urine Hyaline Casts 2-5H, Urine Opiates Screen NEGATIVE, Urine Barbiturates Screen NEGATIVE, Urine Phencyclidine Screen NEGATIVE, Urine Amphetamines Screen NEGATIVE, Urine Benzodiazepines Screen NEGATIVE, Urine Cocaine Screen NEGATIVE, Urine Marijuana (THC) Screen POSITIVEH 06/09/24 00:23: Blood Gas Flow-by 25.00H 06/08/24 23:45: White Cell Morphology Comment See comments ANAMARIA HAWK MD Jun 10, 2024 13:14
[2024-06-10] MEDS ORDERED: COMPOUND IV REFRIGERATED 1 EACH IVSOLN MISC PRN (13:30)
[2024-06-10 14:26] LABS: INR 1.29 (0.85-1.15); PROTHROMBIN TIME 14.1 SEC (9.6-11.6)
[2024-06-10 14:27] LABS: PARTIAL THROMBOPLASTIN TIME 34.2 SEC (26.3-35.5)
--- NOTE | 2024-06-10 14:33 | PN ---
Elevated troponin Acute on chronic diastolic congestive heart failure Acute respiratory failure Pulmonary edema Suspected GI bleed Neutropenia improved/Thrombocytopenia persists Electrolyte derangement Elevated D-dimer of 3989 HTN Positive for THC Metabolic acidosis POA Hyperglycemia POA Hypomagnesemia POA Active alcohol drinker POA Patient was intubated and sedated, unable to provide history Both lungs are aerating. Heart tones regular without murmur. Edema improving and skin crinkling, diuresis underway. Impression: Systolic and diastolic heart failure with volume overload and respiratory failure. Uncertain significance of relatively flat elevation of troponin in the 6-700 range. Gravely ill, we will defer further cardiac testing until improvement. Vitals/Labs Vital Signs Date Time Temp Pulse Resp B/P (MAP) Pulse Ox O2 Delivery O2 Flow Rate FiO2 06/10/24 12:00 100 Ventilator+ 70 06/10/24 11:53 83 06/10/24 11:06 103/59 06/10/24 09:45 24 06/10/24 08:00 98.6 06/09/24 00:12 0 Laboratory Tests 06/09/24 18:01 06/09/24 21:12 06/10/24 01:33 06/10/24 04:47 06/10/24 09:57 Conclusion LVEF is 40%. Grade I diastolic dysfunction DICTATED BY: CHIRAG SÁNCHEZ MD DATE: 06/09/24 1632 Medications Current Medications Furosemide 40 mg ONCE ONCE IV Last administered on 06/09/24at 00:55; Start 06/09/24 at 00:30; Stop 06/09/24 at 00:31; Status DC Magnesium Sulfate 50 ml @ As Directed STK-MED ONCE IV; Start 06/09/24 at 00:24; Stop 06/09/24 at 00:29; Status DC Diazepam 5 mg ONCE ONCE IVP Last administered on 06/09/24at 00:58; Start 06/09/24 at 00:30; Stop 06/09/24 at 00:36; Status DC Sodium Bicarbonate 150 meq/Dextrose 1,150 ml @ 150 mls/hr Q7H40M IVP Last administered on 06/09/24at 01:18; Start 06/09/24 at 00:30; Stop 06/09/24 at 18:11; Status DC Sodium Bicarbonate 50 meq ONCE ONCE IV Last administered on 06/09/24at 00:56; Start 06/09/24 at 00:30; Stop 06/09/24 at 00:36; Status DC Sodium Bicarbonate 0 ml @ As Directed STK-MED ONCE .ROUTE; Start 06/09/24 at 00:35; Stop 06/09/24 at 00:36; Status DC Diazepam 10 mg STK-MED ONCE .ROUTE; Start 06/09/24 at 00:36; Stop 06/09/24 at 00:37; Status DC Magnesium Sulfate 50 ml @ 0 mls/hr PROTOCOL PRN IV Last administered on 06/09/24at 01:03; Start 06/09/24 at 01:00; Stop 06/09/24 at 06:50; Status DC Heparin Sodium/ Dextrose 250 ml @ 0 mls/hr PROTOCOL IV Last administered on 06/09/24at 03:31; Start 06/09/24 at 03:30; Stop 06/09/24 at 09:45; Status DC Heparin Sodium (Porcine) 5,000 unit ONCE ONCE IV Last administered on 06/09/24at 03:27; Start 06/09/24 at 03:30; Stop 06/09/24 at 03:31; Status DC Pantoprazole Sodium 80 mg/ Sodium Chloride 100 ml @ 10 mls/hr Q10H IVP Last administered on 06/10/24at 10:01; Start 06/09/24 at 04:00; Stop 07/09/24 at 03:59 Pantoprazole Sodium 40 mg ONCE ONCE IVP Last administered on 06/09/24at 04:26; Start 06/09/24 at 04:00; Stop 06/09/24 at 04:01; Status DC Octreotide Acetate 500 mcg/ Sodium Chloride 100 ml @ 0 mls/hr PROTOCOL IV Last administered on 06/09/24at 05:50; Start 06/09/24 at 04:30; Stop 06/09/24 at 08:13; Status DC Octreotide Acetate 50 mcg ONCE ONCE IV Last administered on 06/09/24at 04:26; Start 06/09/24 at 04:30; Stop 06/09/24 at 04:31; Status DC Sodium Chloride 1,000 ml @ 500 mls/hr Q2H ONCE IV Last administered on 06/09/24at 05:03; Start 06/09/24 at 05:00; Stop 06/09/24 at 06:59; Status DC Sodium Chloride 1,000 ml @ As Directed STK-MED ONCE IV; Start 06/09/24 at 05:00; Stop 06/09/24 at 05:00; Status DC Fentanyl Citrate 100 ml @ As Directed STK-MED ONCE IV; Start 06/09/24 at 06:05; Stop 06/09/24 at 06:05; Status DC Ketamine HCl 50 mg STK-MED ONCE .ROUTE; Start 06/09/24 at 06:06; Stop 06/09/24 at 06:06; Status DC Midazolam HCl 100 ml ONCE ONCE IV Last administered on 06/09/24at 08:17; Start 06/09/24 at 06:30; Stop 06/09/24 at 06:59; Status DC Fentanyl Citrate 100 ml @ 2.5 mls/hr PROTOCOL IV Last administered on 06/10/24at 10:02; Start 06/09/24 at 06:30; Stop 06/16/24 at 06:29 Ketamine HCl 100 mg ONCE ONCE IM; Start 06/09/24 at 06:30; Stop 06/09/24 at 06:31; Status DC Pharmacy Profile Note 1 each ONCE ONCE MISC; Start 06/09/24 at 06:30; Stop 06/09/24 at 07:00; Status DC Rocuronium [place] 50 mg STK-MED ONCE .ROUTE; Start 06/09/24 at 06:06; Stop 06/09/24 at 06:06; Status DC Norepinephrine 250 ml @ As Directed STK-MED ONCE IV; Start 06/09/24 at 06:16; Stop 06/09/24 at 06:16; Status DC Levofloxacin/ Dextrose 750 mg Q24H IV; Start 06/09/24 at 06:30; Stop 06/09/24 at 08:29; Status DC Potassium Chloride 100 ml @ 50 mls/hr AD PRN IV; Start 06/09/24 at 07:00; Stop 06/09/24 at 08:34; Status DC Magnesium Sulfate 50 ml @ 0 mls/hr PROTOCOL PRN IV; Start 06/09/24 at 07:00; Stop 06/09/24 at 08:35; Status DC Phenylephrine HCl 10 mg/Sodium Chloride 250 ml @ 0 mls/hr PROTOCOL PRN IV Last administered on 06/09/24at 09:27; Start 06/09/24 at 07:00; Stop 07/09/24 at 06:59 Vasopressin 20 units STK-MED ONCE .ROUTE; Start 06/09/24 at 06:42; Stop 06/09/24 at 06:42; Status DC Vasopressin 20 units/Sodium Chloride 100 ml @ 0 mls/hr PROTOCOL IV Last administered on 06/09/24at 08:20; Start 06/09/24 at 07:00; Stop 07/09/24 at 06:59 Furosemide 20 mg Q12H IV; Start 06/09/24 at 12:00; Stop 06/09/24 at 11:26; Status DC Octreotide Acetate 1250 mcg/ Sodium Chloride 250 ml @ 0 mls/hr PROTOCOL IV Last administered on 06/09/24at 21:53; Start 06/09/24 at 08:30; Stop 07/09/24 at 08:29 Potassium Chloride 100 ml @ 100 mls/hr AD PRN IV; Start 06/09/24 at 08:30; Stop 06/09/24 at 08:41; Status DC Potassium Chloride 20 meq AD PRN PO; Start 06/09/24 at 08:30; Stop 07/09/24 at 08:29 Potassium Chloride 20 meq AD PRN PO; Start 06/09/24 at 08:30; Stop 07/09/24 at 08:29 Potassium Chloride 100 ml @ 50 mls/hr AD PRN IV Last administered on 06/10/24at 12:16; Start 06/09/24 at 08:30; Stop 07/09/24 at 08:29 Magnesium Sulfate 50 ml @ 0 mls/hr PROTOCOL PRN IV; Start 06/09/24 at 08:30; Stop 06/09/24 at 09:46; Status DC Vancomycin HCl 1 each AD IV; Start 06/09/24 at 09:00; Stop 06/23/24 at 08:59 Cefepime HCl 2 gm Q8H IVPB Last administered on 06/10/24at 08:02; Start 06/09/24 at 09:00; Stop 06/19/24 at 08:59 Metronidazole/ Sodium Chloride 100 ml @ 100 mls/hr Q8H6 IVPB Last administered on 06/10/24at 05:32; Start 06/09/24 at 14:00; Stop 06/19/24 at 13:59 Chlorhexidine Gluconate 15 ml Q8H MM Last administered on 06/10/24at 08:01; Start 06/09/24 at 09:00; Stop 06/23/24 at 08:59 Artificial Tears 1 DROP OR AD Q8H OU Last administered on 06/10/24at 08:01; Start 06/09/24 at 09:00; Stop 07/09/24 at 08:59 Vancomycin HCl 250 ml @ 125 mls/hr ONCE ONCE IV Last administered on 06/09/24at 11:19; Start 06/09/24 at 09:00; Stop 06/09/24 at 10:59; Status DC Vancomycin HCl 250 ml @ 125 mls/hr Q12H IV Last administered on 06/10/24at 10:06; Start 06/09/24 at 22:00; Stop 06/19/24 at 21:59 Sodium Bicarbonate 50 ml @ As Directed STK-MED ONCE .ROUTE; Start 06/09/24 at 09:40; Stop 06/09/24 at 09:40; Status DC Sodium Bicarbonate 100 meq ONCE ONCE IV; Start 06/09/24 at 10:00; Stop 06/09/24 at 09:45; Status DC Potassium Chloride 20 meq ONCE ONCE PO; Start 06/09/24 at 10:00; Stop 06/09/24 at 10:01; Status DC Sodium Chloride 1,000 ml @ 200 mls/hr PROTOCOL IV; Start 06/09/24 at 10:00; Stop 07/09/24 at 09:59 Potassium Chloride/Dextrose/ Sod Cl 1,000 ml @ 0 mls/hr AD IV; Start 06/09/24 at 10:00; Stop 07/09/24 at 09:59 Potassium Chloride 20 meq/ Sodium Chloride 1,010 ml @ 0 mls/hr PROTOCOL IV; Start 06/09/24 at 10:00; Stop 07/09/24 at 09:59 Magnesium Sulfate 50 ml @ 0 mls/hr PROTOCOL IV Last administered on 06/09/24at 23:47; Start 06/09/24 at 10:00; Stop 07/09/24 at 09:59 Insulin Human Regular 100 unit/ Sodium Chloride 101 ml @ 0 mls/hr PROTOCOL IV Last administered on 06/09/24at 11:41; Start 06/09/24 at 10:00; Stop 07/09/24 at 09:59 Dextrose/Sodium Chloride 1,000 ml @ 0 mls/hr AD IV; Start 06/09/24 at 10:00; Stop 07/09/24 at 09:59 Sodium Bicarbonate 50 meq ONCE ONCE IV Last administered on 06/09/24at 11:20; Start 06/09/24 at 10:00; Stop 06/09/24 at 10:01; Status DC Furosemide 20 mg Q6H6 IV Last administered on 06/10/24at 05:31; Start 06/09/24 at 12:00; Stop 07/09/24 at 11:59 Norepinephrine 250 ml @ As Directed STK-MED ONCE IV; Start 06/09/24 at 12:03; Stop 06/09/24 at 12:04; Status DC Norepinephrine Bitartrate HIGH ALERT Init... PROTOCOL IV Last administered on 06/10/24at 11:06; Start 06/09/24 at 12:30; Stop 07/09/24 at 12:29 Pantoprazole Sodium 40 mg STK-MED ONCE .ROUTE; Start 06/09/24 at 12:19; Stop 06/09/24 at 12:19; Status DC Iohexol 75 ml STK-MED ONCE IV; Start 06/09/24 at 13:45; Stop 06/09/24 at 13:49; Status DC Midazolam HCl 100 ml PROTOCOL IV Last administered on 06/10/24at 03:41; Start 06/09/24 at 15:30; Stop 07/09/24 at 15:29 Lorazepam 2 mg Q4H PRN IVP; Start 06/09/24 at 18:00; Stop 06/16/24 at 17:59 Lorazepam 4 mg Q2H PRN IVP; Start 06/09/24 at 18:00; Stop 06/16/24 at 17:59 Ondansetron HCl 4 mg Q4H PRN IV; Start 06/09/24 at 18:00; Stop 07/09/24 at 17:59 Acetaminophen 500 mg Q6H PRN PO Last administered on 06/09/24at 23:54; Start 06/09/24 at 18:00; Stop 07/09/24 at 17:59 Multivitamins Therapeutic 1 tab DAILY PO; Start 06/10/24 at 09:00; Stop 07/10/24 at 08:59 Pharmacy Profile Note 1 each PROTOCOL PRN MISC; Start 06/09/24 at 18:00; Stop 06/16/24 at 17:59 Thiamine HCl 300 mg DAILY IV Last administered on 06/10/24at 08:01; Start 06/09/24 at 18:00; Stop 07/09/24 at 17:59 Folic Acid 1 mg DAILY IV Last administered on 06/10/24at 09:23; Start 06/09/24 at 18:00; Stop 07/09/24 at 17:59 Lactated Ringer's 500 ml BOLUS ONCE IV; Start 06/10/24 at 03:30; Stop 06/10/24 at 03:50; Status DC Lactulose 200 gm ONCE ONCE PA Last administered on 06/10/24at 11:11; Start 06/10/24 at 10:00; Stop 06/10/24 at 10:01; Status DC CHIRAG SÁNCHEZ MD Jun 10, 2024 14:33
[2024-06-10 14:50] LABS: CREATININE 1.6 mg/dL (0.5-1.3); POTASSIUM 3.6 mmol/L (3.5-5.1)
--- NOTE | 2024-06-10 16:43 | NUR ---
DC PLAN PATIENT VENTED NO FAMILY IN ROOM . PER NURSE SISTER THERE THIS MORNING. BROTHER FLYING IN. CM ATTEMPTED MULTIPLE TIMES. ASKED TO BE CALLED IF FAMILY SHOWS UP OR TO GET NUMBER FOR [place]. Addendum: 06/10/24 at 1653 by YUE CABRERA RN CM Amended: Links added.
[2024-06-10 18:06] LABS: CREATININE 1.6 mg/dL (0.5-1.3); POTASSIUM 3.3 mmol/L (3.5-5.1)
[2024-06-10 21:46] LABS: CREATININE 1.5 mg/dL (0.5-1.3); POTASSIUM 3.9 mmol/L (3.5-5.1)
[2024-06-10 21:48] LABS: VANCOMYCIN TROUGH 32.9 UG/ML (10.0-20.0)
--- NOTE | 2024-06-10 21:56 | PN ---
GASTROENTEROLOGY PROGRESS NOTE Date of Visit: Jun 10, 2024 Time of Visit: 21:53 Events / Notes: No acute events overnight. patient was scheduled for EGD; however, canceled due to pressor support. Review of Systems: CONSTITUTIONAL: No malaise or change in sensation of wellbeing. ENMT: No rhinorrhea, otorrhea, sinus pain, ear ache. CARDIOVASCULAR: No angina, palpitations, orthopnea or paroxysmal dyspnea. RESPIRATORY: No SOB. GASTROINTESTINAL: No abdominal pain, nausea, vomiting, diarrhea, hematemesis, melena or change in the patient's habitual bowel movements consistency/number. GENITOURINARY: No dysuria, hematuria or change in bladder continence. MUSCULOSKELETAL: No new muscle pain or decrease in muscular strength. No new joint swelling, redness or tenderness. SKIN: No new rash. Physical Exam: GEN: Awake, alert, oriented in person, time and place, and in no acute distress. HEENT: No sinus tenderness. Tympanic membranes were not examined. No rhinorrhea. Oral pharyngeal mucosa is pink, moist and within normal limits. Neck is supple with no cervical lymphadenopathy, thyromegaly or JVD. CHEST: Inspection, palpation and percussion of the chest were unremarkable. Lung auscultation revealed normal breath sounds bilaterally. CARDIAC: PMI is within normal limits. Heart sounds are regular. Normal S1, S2. No gallop or murmur. ABD: Soft, non-tender and not distended. No peritoneal signs on palpation. No organomegaly. Normal bowel sounds. EXT: No cyanosis or clubbing. No edema. SKIN: Intact. No rashes. JOINTS: No evidence of synovitis or acute arthritis. NEURO: Alert and oriented to name, place and person. Cranial nerve examination is unremarkable. No focal motor deficits. Normal speech. Gait is normal. Strength is normal. Vital Signs (last 8hr) Date Time Temp Pulse Resp B/P (MAP) Pulse Ox O2 Delivery O2 Flow Rate FiO2 06/10/24 21:43 90 50 06/10/24 20:46 90 24 118/75 (89) 100 06/10/24 20:31 87 24 128/79 (95) 100 06/10/24 20:16 83 24 123/77 (92) 100 06/10/24 20:01 99.9 84 24 128/80 (96) 100 50 06/10/24 20:00 100 Ventilator+ 50 06/10/24 19:46 85 24 124/77 (93) 100 06/10/24 19:31 84 24 124/74 (91) 100 06/10/24 19:16 86 24 127/75 (92) 100 06/10/24 19:01 87 24 122/74 (90) 100 50 06/10/24 18:45 89 24 116/71 (86) 100 06/10/24 18:32 91 50 06/10/24 18:30 90 24 115/71 (86) 99 06/10/24 18:15 87 25 114/67 (83) 100 06/10/24 18:00 81 24 111/67 (82) 100 06/10/24 17:45 81 24 111/67 (82) 100 06/10/24 17:30 85 24 113/69 (84) 100 06/10/24 17:15 83 25 111/68 (82) 100 06/10/24 17:00 84 24 111/69 (83) 100 06/10/24 16:45 83 24 108/67 (81) 100 06/10/24 16:30 83 25 104/65 (78) 100 06/10/24 16:15 85 25 99/62 (74) 99 06/10/24 16:00 100 Ventilator+ 50 06/10/24 16:00 98.2 87 24 97/55 (69) 98 06/10/24 16:00 98.2 06/10/24 15:45 96 24 124/76 (92) 98 06/10/24 15:30 96 24 122/76 (91) 99 06/10/24 15:15 93 24 130/76 (94) 99 06/10/24 15:00 90 24 136/84 (101) 100 06/10/24 14:58 89 50 06/10/24 14:45 89 24 136/81 (99) 100 06/10/24 14:30 88 24 134/82 (99) 100 06/10/24 14:15 86 24 141/85 (103) 100 06/10/24 14:00 86 24 141/83 (102) 100 Laboratory: [ ] Laboratory: Test 06/10/24 20:50 06/10/24 20:26 06/10/24 14:00 06/10/24 09:57 Range/Units Sodium Level 146 H 136-145 mmol/L Potassium Level 3.9 3.5-5.1 mmol/L Chloride Level 109 101-111 mmol/L Carbon Dioxide Level 25 21-32 mmol/L Blood Urea Nitrogen 17 7-18 mg/dL Creatinine 1.5 H 0.5-1.3 mg/dL Glomerular Filtration Rate Calc 55 >90 mL/min Random Glucose 135 H 70-105 mg/dL Total Calcium 7.0 L 8.5-10.1 mg/dL Vancomycin Level Trough 32.9 *H 10.0-20.0 UG/ML Whole Blood Glucose 125 H 70-110 MG/DL Prothrombin Time 14.1 H 9.6-11.6 SEC Prothromb Time International Ratio 1.29 H 0.85-1.15 Activated Partial Thromboplast Time 34.2 26.3-35.5 SEC Whole Blood Ketones Quantitative 3.4 H 0.0-0.6 mmol/L Erythrocyte Sedimentation Rate 13 0-20 MM/HR Fibrinogen 346 180-350 mg/dL Iron Level 10 L 65-175 mcg/dL Total Iron Binding Capacity 153 L 250-450 mcg/dL Percent Iron Saturation 6.5 L 30-44 % Vitamin B12 Level 1187 H 193-986 pg/mL HIV (1&2) Antibody Non-Reactive Negative HIV P24 Antigen, Qualitative Non-Reactive Negative Test 06/10/24 04:47 06/10/24 04:23 06/09/24 21:12 06/09/24 18:01 Range/Units White Blood Count 11.2 #H 4.8-10.8 K/uL Red Blood Count 2.81 L 4.50-6.20 MIL/uL Hemoglobin 10.1 L 14.0-18.0 g/dL Hematocrit 29.7 L 42-54 % Mean Corpuscular Volume 105.7 H 79-99 fL Mean Corpuscular Hemoglobin 35.9 H 27.0-33.0 pg Mean Corpuscular Hemoglobin Concent 34.0 32.0-36.0 g/dL Red Cell Distribution Width 11.9 11.0-15.5 % Platelet Count 59 #L 130-400 K/uL Mean Platelet Volume 11.2 H 7.5-10.5 fL Immature Granulocyte % (Auto) 4.5 H 0-1 % Neutrophils (%) (Auto) 81.2 H 40.0-77.0 % Lymphocytes (%) (Auto) 8.3 L 21.0-51.0 % Monocytes (%) (Auto) 5.5 3.0-13.0 % Eosinophils (%) (Auto) 0.2 0.0-8.0 % Basophils (%) (Auto) 0.3 0.0-5.0 % Neutrophils # (Auto) 9.1 H 1.8-7.7 K/uL Lymphocytes # (Auto) 0.9 L 1.0-4.8 K/uL Monocytes # (Auto) 0.6 0.1-1.0 K/uL Eosinophils # (Auto) 0.02 0.00-0.70 K/uL Basophils # (Auto) 0.03 0.00-0.20 K/uL Absolute Immature Granulocyte (auto 0.51 0-1 K/uL Nucleated Red Blood Cells 0.0 0.0-0.19 % Platelet Morphology Comment See comments Magnesium Level 1.90 1.80-2.40 mg/dL B-Type Natriuretic Peptide 1180 H 0-100 pg/mL Procalcitonin 9.46 H 0.05-0.5 ng/mL Blood Gas Specimen Type Arterial Arterial Blood pH 7.350 7.350-7.450 Arterial Blood Partial Pressure CO2 33 L 35-48 mmHg Arterial Blood Partial Pressure O2 251.4 H 83.0-108.0 mmHg Arterial Blood HCO3 17.9 L 21.0-28.0 mmol/L Arterial Blood Oxygen Saturation 99.3 H 94.0-98.0 % Arterial Blood Base Excess -6.7 L -2.0-3.0 mmol/L Hemoglobin (Blood Gas) 12.4 L 13.5-17.5 g/dL Sodium (Blood Gas) 143 136-145 MMOL/L Bedside Potassium (Blood Gas) 4.0 3.4-4.5 MMOL/L Bedside Chloride (Blood Gas) 108 H 98-107 MMOL/L Bedside Glucose (Blood Gas) 171 H 65-95 MG/DL Bedside Ionized Calcium (Blood Gas) 1.01 L 1.15-1.33 MMOL/L Bedside Lactic Acid (Blood Gas) 2.06 H 0.36-0.75 MMOL/L Blood Gas Temperature 37.0 35.5-37.0 CELSIUS Blood Gas Respiration Rate 24.0 min. Blood Gas Vent Mode ACVC ROOM AIR FiO2 100.0 % Blood Gas Tidal Volume 425 ml Blood Gas PEEP 5 cm H2O Blood Gas Specimen Comment JOSE G RN ,RB Lactic Acid Level 2.2 0.8-2.5 mmol/L Troponin I High Sensitivity 953 *H 4-75 ng/L Test 06/09/24 08:45 06/09/24 07:13 06/09/24 03:54 06/09/24 01:39 Range/Units Ammonia 122 *H 11-32 umol/L Red Blood Cell Morphology See comments D-Dimer Quantitative (PE/DVT) 3989 *H 0-500 ng/mL Hemoglobin A1c 4.6 4.0-6.0 % Estimated Average Glucose (eAG) 85 70-126 mg/dL Total Bilirubin 2.1 H 0.2-1.0 mg/dL Aspartate Amino Transf (AST/SGOT) 74 H 10-37 U/L Alanine Aminotransferase (ALT/SGPT) 29 12-78 U/L Alkaline Phosphatase 102 50-136 U/L Lactate Dehydrogenase 224 81-234 U/L Total Creatine Kinase 145 21-232 U/L C-Reactive Protein, Quantitative 22.50 H 0.5-3.0 mg/L Total Protein 5.4 L 6.0-8.3 g/dL Albumin 2.4 L 3.5-5.0 g/dL Triglycerides Level 120 30-200 mg/dL Cholesterol Level 131 <200 mg/dL LDL Cholesterol 73 0-99 mg/dL HDL Cholesterol 35 29-71 mg/dL Thyroid Stimulating Hormone (TSH) 0.51 0.36-3.74 uIU/mL Stool Occult Blood NEGATIVE NEGATIVE Salicylates Level < 2.8 L 2.8-20.0 mg/dL Test 06/09/24 00:55 06/09/24 00:23 06/08/24 23:45 Range/Units Urine Color LIGHT-YELLOW YELLOW Urine Appearance CLEAR CLEAR Urine pH 6.0 5.0-8.0 Urine Specific [place] 1.012 1.001-1.031 Urine Protein 50 H NEGATIVE mg/dL Urine Glucose (UA) NEGATIVE NEGATIVE mg/dL Urine Ketones 150 H NEGATIVE mg/dL Urine Occult Blood MODERATE H NEGATIVE Urine Nitrate NEGATIVE NEGATIVE Urine Bilirubin NEGATIVE NEGATIVE mg/dL Urine Urobilinogen 0.2 0.2-1.0 mg/dL Urine Leukocyte Esterase NEGATIVE NEGATIVE Melchor/uL Urine RBC 2-5 H 0-1 /HPF Urine WBC 6-10 H 0-1 /HPF Urine Bacteria FEW None Seen /HPF Urine Hyaline Casts 2-5 H 0-1 /LPF /LPF Urine Opiates Screen NEGATIVE NEGATIVE Urine Barbiturates Screen NEGATIVE NEGATIVE Urine Phencyclidine Screen NEGATIVE NEGATIVE Urine Amphetamines Screen NEGATIVE NEGATIVE Urine Benzodiazepines Screen NEGATIVE NEGATIVE Urine Cocaine Screen NEGATIVE NEGATIVE Urine Marijuana (THC) Screen POSITIVE H NEGATIVE Blood Gas Flow-by 25.00 H 0.00-15.00 L/min White Cell Morphology Comment See comments Current Medications Medications (Trade) Dose Ordered Sig/Quan Route PRN Reason Start Time Stop Time Status Last Admin Dose Admin Acetaminophen (TYLenol 500MG TAB) 500 mg Q6H PRN PO TEMP < 101.1 AND/OR HEADACHE 06/09/24 18:00 07/09/24 17:59 06/09/24 23:54 500 MG Artificial Tears (Artificial Tears) 1 DROP OR AD Q8H OU 06/09/24 09:00 07/09/24 08:59 06/10/24 16:44 1 DROP Cefepime HCl (MAXipime 2 gm vial) 2 gm Q12H IVPB 06/11/24 05:00 06/19/24 08:59 Cefepime HCl (MAXipime 2 gm vial) 2 gm Q8H IVPB 06/09/24 09:00 06/10/24 19:49 DC 06/10/24 16:44 2 GM Chlorhexidine Gluconate (Peridex) 15 ml Q8H MM 06/09/24 09:00 06/23/24 08:59 06/10/24 16:55 15 ML Dextrose/Sodium Chloride 1,000 ml @ 0 mls/hr AD IV 06/09/24 10:00 07/09/24 09:59 Fentanyl Citrate 100 ml @ 2.5 mls/hr PROTOCOL IV 06/09/24 06:30 06/16/24 06:29 06/10/24 17:24 2.5 MLS/HR Folic Acid (FolVITE 5 MG/ML VIAL) 1 mg DAILY IV 06/09/24 18:00 07/09/24 17:59 06/10/24 09:23 1 MG Furosemide (LASix 20MG VIAL) 20 mg Q12H IV 06/09/24 12:00 06/09/24 11:26 DC Furosemide (LASix 20MG VIAL) 20 mg Q6H6 IV 06/09/24 12:00 07/09/24 11:59 06/10/24 20:19 20 MG Heparin Sodium/ Dextrose 250 ml @ 0 mls/hr PROTOCOL IV 06/09/24 03:30 06/09/24 09:45 DC 06/09/24 03:31 10.78 MLS/HR Insulin Human Regular 100 unit/ Sodium Chloride 101 ml @ 0 mls/hr PROTOCOL IV 06/09/24 10:00 07/09/24 09:59 06/09/24 11:41 1 MLS/HR Levofloxacin/ Dextrose (LEvaquIN 750 MG/ D5W 150 ML) 750 mg Q24H IV 06/09/24 06:30 06/09/24 08:29 DC Lorazepam (AtiVAN) 2 mg Q4H PRN IVP ALCOHOL WITHDRAWAL PROTOCOL 06/09/24 18:00 06/16/24 17:59 Lorazepam (AtiVAN) 4 mg Q2H PRN IVP ALCOHOL WITHDRAWAL PROTOCOL 06/09/24 18:00 06/16/24 17:59 Magnesium Sulfate 50 ml @ 0 mls/hr PROTOCOL IV 06/09/24 10:00 07/09/24 09:59 06/09/24 23:47 25 MLS/HR Magnesium Sulfate 50 ml @ 0 mls/hr PROTOCOL PRN IV OTHER [SEE ORDER COMMENTS] 06/09/24 01:00 06/09/24 06:50 DC 06/09/24 01:03 25 MLS/HR Magnesium Sulfate 50 ml @ 0 mls/hr PROTOCOL PRN IV OTHER [SEE ORDER COMMENTS] 06/09/24 07:00 06/09/24 08:35 DC Magnesium Sulfate 50 ml @ 0 mls/hr PROTOCOL PRN IV low magnesium 06/09/24 08:30 06/09/24 09:46 DC Metronidazole/ Sodium Chloride 100 ml @ 100 mls/hr Q8H6 IVPB 06/09/24 14:00 06/19/24 13:59 06/10/24 14:40 100 MLS/HR Midazolam HCl (Midazolam 100mg-0.9% NS 100ml) 100 ml PROTOCOL IV 06/09/24 15:30 07/09/24 15:29 06/10/24 15:34 100 ML Multivitamins Therapeutic (Multivitamin Tablet) 1 tab DAILY PO 06/10/24 09:00 07/10/24 08:59 Norepinephrine Bitartrate (Norepineph 16 Mg/250ml NS Premix) HIGH ALERT Init... PROTOCOL IV 06/09/24 12:30 07/09/24 12:29 06/10/24 11:06 16 MG Octreotide Acetate 1250 mcg/ Sodium Chloride 250 ml @ 0 mls/hr PROTOCOL IV 06/09/24 08:30 07/09/24 08:29 06/09/24 21:53 5 MLS/HR Octreotide Acetate 500 mcg/ Sodium Chloride 100 ml @ 0 mls/hr PROTOCOL IV 06/09/24 04:30 06/09/24 08:13 DC 06/09/24 05:50 5 MLS/HR Ondansetron HCl (zoFRAN 4MG INJ) 4 mg Q4H PRN IV NAUSEA 06/09/24 18:00 07/09/24 17:59 Pantoprazole Sodium 80 mg/ Sodium Chloride 100 ml @ 10 mls/hr Q10H IVP 06/09/24 04:00 07/09/24 03:59 06/10/24 20:19 10 MLS/HR Pharmacy Profile Note (Pharmacy Communication) 1 each PROTOCOL PRN MISC ETOH Withdrawal Score changes 06/09/24 18:00 06/16/24 17:59 Phenylephrine HCl 10 mg/Sodium Chloride 250 ml @ 0 mls/hr PROTOCOL PRN IV PROTOCOL 06/09/24 07:00 07/09/24 06:59 06/09/24 09:27 96 MLS/HR Potassium Chloride 20 meq/ Sodium Chloride 1,010 ml @ 0 mls/hr PROTOCOL IV 06/09/24 10:00 07/09/24 09:59 Potassium Chloride/Dextrose/ Sod Cl 1,000 ml @ 0 mls/hr AD IV 06/09/24 10:00 07/09/24 09:59 Potassium Chloride 100 ml @ 50 mls/hr AD PRN IV POTASSIUM PROTOCOL 06/09/24 07:00 06/09/24 08:34 DC Potassium Chloride 100 ml @ 50 mls/hr AD PRN IV POTASSIUM PROTOCOL 06/09/24 08:30 07/09/24 08:29 06/10/24 20:19 50 MLS/HR Potassium Chloride 100 ml @ 100 mls/hr AD PRN IV POTASSIUM PROTOCOL 06/09/24 08:30 06/09/24 08:41 DC Potassium Chloride (K-Dur/Klor-Con 20meq) 20 meq AD PRN PO POTASSIUM PROTOCOL 06/09/24 08:30 07/09/24 08:29 Potassium Chloride (KCl 10% Elixir 20meq/15ml) 20 meq AD PRN PO POTASSIUM PROTOCOL 06/09/24 08:30 07/09/24 08:29 Sodium Bicarbonate 150 meq/Dextrose 1,150 ml @ 150 mls/hr Q7H40M IVP 06/09/24 00:30 06/09/24 18:11 DC 06/09/24 01:18 150 MLS/HR Sodium Chloride 1,000 ml @ 200 mls/hr PROTOCOL IV 06/09/24 10:00 07/09/24 09:59 Thiamine HCl (Vitamin B-1) 300 mg DAILY IV 06/09/24 18:00 07/09/24 17:59 06/10/24 08:01 300 MG Vancomycin HCl 250 ml @ 125 mls/hr Q12H IV 06/09/24 22:00 06/10/24 21:50 DC 06/10/24 10:06 125 MLS/HR Vancomycin HCl (Vancomycin Protocol) 1 each AD IV 06/09/24 09:00 06/23/24 08:59 Vasopressin 20 units/Sodium Chloride 100 ml @ 0 mls/hr PROTOCOL IV 06/09/24 07:00 07/09/24 06:59 06/09/24 08:20 9 MLS/HR Diagnostics / Radiology: [COPY/PASTE HERE IF NO REPORTS PLEASE DELETE SECTION] Assessment: Hematemesis Acute blood loss anemia Cirrhosis Plan: Case discussed with Dr. Burden Patient with hemodynamic instability, so will hold off on EGD Continue GI prophylaxis Advance diet as tolerated Avoid NSAIDs Antireflux measures Monitor H&H and transfuse as needed Call with questions, concerns or change in clinical status Patient to follow-up at clinic post discharge Thank you for this consult LISA FRASER [employer] Jun 10, 2024 21:56
[2024-06-11] VITALS (118 sets, daily range): BP systolic 92–140; BP diastolic 56–84; PULSE 69–100; RESP 17–25; TEMP 97.9–100.6; O2SAT 97–100
[2024-06-11 02:10] LABS: CREATININE 1.4 mg/dL (0.5-1.3); POTASSIUM 3.2 mmol/L (3.5-5.1)
[2024-06-11 04:06] LABS: ABG BASE EXCESS 2.3 mmol/L (-2.0-3.0); ABG HCO3 24.2 mmol/L (21.0-28.0); ABG PCO2 31 mmHg (35-48); ABG PH 7.518 (7.350-7.450); PO2, ARTERIAL BG 140.9 mmHg (83.0-108.0); VENT MODE, BG AC (ROOM AIR)
[2024-06-11] MEDS: ceFEPime HCL 2 GM VIAL IVPB SCH (04:20)
[2024-06-11 05:35] LABS: HEMATOCRIT 29.9 % (42-54); MEAN CORPUSCULAR HEMOGLOBIN 35.9 pg (27.0-33.0); MEAN CORPUSCULAR HGB CONC 34.1 g/dL (32.0-36.0); MEAN CORPUSCULAR VOLUME 105.3 fL (79-99); RED BLOOD CELL COUNT(AUTO) 2.84 MIL/uL (4.50-6.20); WHITE BLOOD COUNT (AUTO) 13.4 K/uL (4.8-10.8)
[2024-06-11 05:55] LABS: ALBUMIN 2.2 g/dL (3.5-5.0); BILIRUBIN,TOTAL 2.3 mg/dL (0.2-1.0); CREATININE 1.4 mg/dL (0.5-1.3); MAGNESIUM 1.5 mg/dL (1.80-2.40); POTASSIUM 4.2 mmol/L (3.5-5.1); TOTAL PROTEIN, SERUM 5.6 g/dL (6.0-8.3)
--- NOTE | 2024-06-11 08:09 | PN ---
[facility] CARDIOLOGY PROGRESS NOTE Date Patient Seen: Jun 11, 2024 Time of Visit: 08:01 Interval History: [EGD not performed due to patient needing pressor support. Patient remains intubated. CXR with bilateral pleural effusions and pulmonary edema. Worsening leukocytosis. ] Physical Examination: GENERAL: [No acute distress.] HEAD: [Normal with no signs of head trauma.] EYES: [PERRLA, EOMI, conjunctiva and sclera normal.] ENT: [Hearing grossly intact, normal oropharynx.] NECK: [Supple without JVD. There is no tenderness, lymphadenopathy, or masses. No thyromegaly. Normal carotid upstrokes without bruits.] LUNGS: [rales bilaterally, intubated] HEART: [Normal rate and rhythm. Normal S1 and S2 without mumurs, gallop or rub.] VASC: [Peripheral pulses +2 bilaterally.] ABD: [Bowel sounds normal, soft, nontender, no masses, no organomegaly. No audible bruits.] : [Not examined] LYMPH: [No lymphadenopathy noted.] EXT: [No clubbing, cyanosis or edema.] SKIN: [No rashes or lesions noted.] NEURO: [Awake, alert, and oriented x3. No focal sensory or strength deficits noted.] Laboratory: [ ] Hematology Labs: Test 06/11/24 05:18 06/10/24 09:57 06/10/24 04:47 Range/Units White Blood Count 13.4 H 4.8-10.8 K/uL Red Blood Count 2.84 L 4.50-6.20 MIL/uL Hemoglobin 10.2 L 14.0-18.0 g/dL Hematocrit 29.9 L 42-54 % Mean Corpuscular Volume 105.3 H 79-99 fL Mean Corpuscular Hemoglobin 35.9 H 27.0-33.0 pg Mean Corpuscular Hemoglobin Concent 34.1 32.0-36.0 g/dL Red Cell Distribution Width 12.0 11.0-15.5 % Platelet Count 51 L 130-400 K/uL Mean Platelet Volume 12.3 H 7.5-10.5 fL Nucleated Red Blood Cells 0.0 0.0-0.19 % Erythrocyte Sedimentation Rate 13 0-20 MM/HR Immature Granulocyte % (Auto) 4.5 H 0-1 % Neutrophils (%) (Auto) 81.2 H 40.0-77.0 % Lymphocytes (%) (Auto) 8.3 L 21.0-51.0 % Monocytes (%) (Auto) 5.5 3.0-13.0 % Eosinophils (%) (Auto) 0.2 0.0-8.0 % Basophils (%) (Auto) 0.3 0.0-5.0 % Neutrophils # (Auto) 9.1 H 1.8-7.7 K/uL Lymphocytes # (Auto) 0.9 L 1.0-4.8 K/uL Monocytes # (Auto) 0.6 0.1-1.0 K/uL Eosinophils # (Auto) 0.02 0.00-0.70 K/uL Basophils # (Auto) 0.03 0.00-0.20 K/uL Absolute Immature Granulocyte (auto 0.51 0-1 K/uL Platelet Morphology Comment See comments Chemistry Labs: Test 06/11/24 05:18 06/11/24 04:14 06/10/24 14:00 06/10/24 09:57 Range/Units Sodium Level 145 136-145 mmol/L Potassium Level 4.2 3.5-5.1 mmol/L Chloride Level 109 101-111 mmol/L Carbon Dioxide Level 26 21-32 mmol/L Blood Urea Nitrogen 16 7-18 mg/dL Creatinine 1.4 H 0.5-1.3 mg/dL Glomerular Filtration Rate Calc 59 >90 mL/min Random Glucose 128 H 70-105 mg/dL Total Calcium 7.2 L 8.5-10.1 mg/dL Magnesium Level 1.50 L 1.80-2.40 mg/dL Total Bilirubin 2.3 H 0.2-1.0 mg/dL Aspartate Amino Transf (AST/SGOT) 100 H 10-37 U/L Alanine Aminotransferase (ALT/SGPT) 33 12-78 U/L Alkaline Phosphatase 67 50-136 U/L Ammonia 13 11-32 umol/L Total Protein 5.6 L 6.0-8.3 g/dL Albumin 2.2 L 3.5-5.0 g/dL Whole Blood Glucose 117 H 70-110 MG/DL Whole Blood Ketones Quantitative 3.4 H 0.0-0.6 mmol/L Iron Level 10 L 65-175 mcg/dL Total Iron Binding Capacity 153 L 250-450 mcg/dL Percent Iron Saturation 6.5 L 30-44 % Carcinoembryonic Antigen 4.0 0.0-4.7 ng/mL CA 19-9 Antigen 66 H 0-35 U/mL Vitamin B12 Level 1187 H 193-986 pg/mL Test 06/10/24 04:47 06/09/24 21:12 06/09/24 18:01 Range/Units B-Type Natriuretic Peptide 1180 H 0-100 pg/mL Procalcitonin 9.46 H 0.05-0.5 ng/mL Lactic Acid Level 2.2 0.8-2.5 mmol/L Troponin I High Sensitivity 953 *H 4-75 ng/L Coagulation Labs: Test 06/10/24 14:00 06/10/24 09:57 Range/Units Prothrombin Time 14.1 H 9.6-11.6 SEC Prothromb Time International Ratio 1.29 H 0.85-1.15 Activated Partial Thromboplast Time 34.2 26.3-35.5 SEC Fibrinogen 346 180-350 mg/dL Diagnostics / Radiology: [Copy/Paste Echos/Imaging Report here] Impression and Plan: [Type II DE Acute on chronic diastolic congestive heart failure HFrEF 40% Acute respiratory failure s/p intubation Pulmonary edema Suspected GI bleed iron def anemia Neutropenia improved/Thrombocytopenia persists Electrolyte derangement Elevated D-dimer of 3989 HTN Positive for THC Metabolic acidosis POA Hyperglycemia POA Hypomagnesemia POA Active alcohol drinker POA #Type II DE due to Acute on chronic CHF LVEF 40% -Troponin in a stable flat pattern. Gravely ill, we will defer further cardiac testing until improvement. -lasix 20 mg IV q6h -urine output 4900 cc, Cr stable at 1.4 -CXR unchanged -hold anticoagulation given thrombocytopenia Yoana Hill MD] YOANA HILL MD Jun 11, 2024 08:09
--- NOTE | 2024-06-11 08:53 | HMCIMG ---
Exam Type: CHEST 1VW Clinical Information: Intubated Comparison: None Findings: Pulmonary pattern is as before. No worrisome interval changes have taken place. Impression: Stable exam.
--- NOTE | 2024-06-11 09:21 | PN ---
[facility] PROGRESS NOTE Date Patient Seen: Jun 11, 2024 Time of Visit: 09:21 Supervising Physician: Abhi An MD Primary Care Physician: Self Referral, Outpatient Specialists: Inpatient Consults: Dr Mena. 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 He has less pressor support only on Levophed today at 0.4 micrograms/kilogram per minute. He is still crit ically ill. Current vital signs and blood pressure 128/72 respiratory rate of 24 saturating 95% with FiO2 of 70%, heart rate 96 beats per minute, he developed a fever yesterday of 101.1 in the last 24 hours. He continues antibiotics with vanco cefepime and Flagyl. Sister is at the bedside who answered a few questions in regards to his medical history. She reports she has not been very informed of patient for the last three years but she reports patient has been told he has liver cirrhosis at least three years ago. He was told that if he did in quit drinking that he could within the next year. She also reports patient has heart problems and at one point he was placed on a LifeVest for heart failure. Urine output 2.3 L with a balance of-483 mL. On laboratory WBCs are 11.2 H&H is 10.1/29.7 seemed to be stable. Platelet count 59 K decreased from yesterday which was 91 K. Latest ABG with a pH of 7.35 pCO2 of 33 PO2 of 251 and bicarb of 17.9 base excess-6.7 improvement from yesterday. Ventilator Settings Adjusted To Assist Control Volume Control Tidal Volume Of 425 Respiratory Rate Of 24 Fio2 Of 70% And Peep Of 5. 2D echo shows EF of 40% with grade 1 diastolic dysfunction. Venous ultrasound with normal bilateral lower extremity venous Doppler. Ultrasound of the abdomen with moderate to marked hepatic steatosis, the liver is enlarged at 17 cm., ascites otherwise unremarkable exam including no abnormal per has been. Patient has a MELD score of 19 point which is 19.6% of estimated 3month mortality. EGD for today has been canceled per GI due to pt still on pressor support. Pt's sister was at the bedside and has requested for pt code status to be changed to DNR. 06/11/24: Patient continues critically ill currently on Levophed at 0.04 micrograms/kilogram per minute, fentanyl 125 micrograms/hour, Versed weaning at 4 milligrams/hour. He continues on Sandostatin drip and Protonix drip. We will switch to Protonix 40 ivp BID for now. Patient has been afebrile heart rate in the 80s hemodynamically improving blood pressure 108/68 with a map of 81 respiratory rate adjusted to 18 saturating 97% with a FiO2 45% on the vent, current settings of assist control volume control tidal volume of 425 respiratory rate of 18 FiO2 of 45 and PEEP of five. Prior ABGs showed a pH of 7.51, pCO2 of 31 PO2 of 140 and bicarb of 24.2. Chest x-ray shows pulmonary pattern has been for no worrisome interval changes have taken place. Stable exam. ET tube 6.5 cm from the louis communicated with respiratory for insertion in 1.5 cm. We will continue to wean off sedation to assess mental status. once pt breathing over the vent we may start SBT. REVIEW OF SYSTEMS: Unable to perform due to patient's intubated. PHYSICAL EXAM: GENERAL: Intubated and sedated. HEENT: Sclera non icteric, dry mucosa NECK: Supple, no JVD, trachea midline LUNGS: Diminished breath sounds bilaterally. No wheezes HEART: Regular rate and rhythm. Normal S1 and S2, without murmurs ABD: Abdomen soft, nontender. Bowel sounds present EXT: No clubbing cyanosis , swelling to bilateral lower extremities. NEURO: Intubated and sedated. Vital Signs (last 8hr) Date Time Temp Pulse Resp B/P (MAP) Pulse Ox O2 Delivery O2 Flow Rate FiO2 06/11/24 07:10 90 50 06/11/24 06:46 90 24 107/71 (83) 99 06/11/24 06:31 93 24 107/67 (80) 99 06/11/24 06:16 89 24 125/77 (93) 99 06/11/24 06:01 91 24 121/74 (90) 99 45 06/11/24 05:46 91 24 130/84 (99) 99 06/11/24 05:31 90 24 133/77 (95) 99 06/11/24 05:16 89 24 129/78 (95) 99 06/11/24 05:01 88 24 129/81 (97) 99 45 06/11/24 04:46 93 24 128/79 (95) 99 06/11/24 04:31 89 24 136/82 (100) 99 06/11/24 04:16 86 24 123/75 (91) 100 06/11/24 04:01 99.1 82 24 134/80 (98) 100 45 06/11/24 04:00 100 Ventilator+ 50 06/11/24 03:46 85 24 132/79 (96) 100 06/11/24 03:31 86 24 135/78 (97) 100 06/11/24 03:16 88 24 136/81 (99) 100 06/11/24 03:01 88 24 140/80 (100) 100 50 06/11/24 02:46 90 24 139/78 (98) 100 06/11/24 02:31 88 24 138/81 (100) 100 06/11/24 02:16 86 24 137/81 (99) 100 06/11/24 02:01 91 24 139/83 (101) 100 50 06/11/24 01:58 86 50 06/11/24 01:46 87 24 131/79 (96) 100 06/11/24 01:31 100 24 105/67 (80) 100 LABS: Hematology Labs: Test 06/11/24 05:18 06/10/24 09:57 06/10/24 04:47 Range/Units White Blood Count 13.4 H 4.8-10.8 K/uL Red Blood Count 2.84 L 4.50-6.20 MIL/uL Hemoglobin 10.2 L 14.0-18.0 g/dL Hematocrit 29.9 L 42-54 % Mean Corpuscular Volume 105.3 H 79-99 fL Mean Corpuscular Hemoglobin 35.9 H 27.0-33.0 pg Mean Corpuscular Hemoglobin Concent 34.1 32.0-36.0 g/dL Red Cell Distribution Width 12.0 11.0-15.5 % Platelet Count 51 L 130-400 K/uL Mean Platelet Volume 12.3 H 7.5-10.5 fL Nucleated Red Blood Cells 0.0 0.0-0.19 % Erythrocyte Sedimentation Rate 13 0-20 MM/HR Immature Granulocyte % (Auto) 4.5 H 0-1 % Neutrophils (%) (Auto) 81.2 H 40.0-77.0 % Lymphocytes (%) (Auto) 8.3 L 21.0-51.0 % Monocytes (%) (Auto) 5.5 3.0-13.0 % Eosinophils (%) (Auto) 0.2 0.0-8.0 % Basophils (%) (Auto) 0.3 0.0-5.0 % Neutrophils # (Auto) 9.1 H 1.8-7.7 K/uL Lymphocytes # (Auto) 0.9 L 1.0-4.8 K/uL Monocytes # (Auto) 0.6 0.1-1.0 K/uL Eosinophils # (Auto) 0.02 0.00-0.70 K/uL Basophils # (Auto) 0.03 0.00-0.20 K/uL Absolute Immature Granulocyte (auto 0.51 0-1 K/uL Platelet Morphology Comment See comments Chemistry Labs: Test 06/11/24 07:57 06/11/24 05:18 06/10/24 14:00 06/10/24 09:57 Range/Units Whole Blood Glucose 131 H 70-110 MG/DL Sodium Level 145 136-145 mmol/L Potassium Level 4.2 3.5-5.1 mmol/L Chloride Level 109 101-111 mmol/L Carbon Dioxide Level 26 21-32 mmol/L Blood Urea Nitrogen 16 7-18 mg/dL Creatinine 1.4 H 0.5-1.3 mg/dL Glomerular Filtration Rate Calc 59 >90 mL/min Random Glucose 128 H 70-105 mg/dL Total Calcium 7.2 L 8.5-10.1 mg/dL Magnesium Level 1.50 L 1.80-2.40 mg/dL Total Bilirubin 2.3 H 0.2-1.0 mg/dL Aspartate Amino Transf (AST/SGOT) 100 H 10-37 U/L Alanine Aminotransferase (ALT/SGPT) 33 12-78 U/L Alkaline Phosphatase 67 50-136 U/L Ammonia 13 11-32 umol/L Total Protein 5.6 L 6.0-8.3 g/dL Albumin 2.2 L 3.5-5.0 g/dL Whole Blood Ketones Quantitative 3.4 H 0.0-0.6 mmol/L Iron Level 10 L 65-175 mcg/dL Total Iron Binding Capacity 153 L 250-450 mcg/dL Percent Iron Saturation 6.5 L 30-44 % Carcinoembryonic Antigen 4.0 0.0-4.7 ng/mL CA 19-9 Antigen 66 H 0-35 U/mL Vitamin B12 Level 1187 H 193-986 pg/mL Test 06/10/24 04:47 06/09/24 21:12 06/09/24 18:01 Range/Units B-Type Natriuretic Peptide 1180 H 0-100 pg/mL Procalcitonin 9.46 H 0.05-0.5 ng/mL Lactic Acid Level 2.2 0.8-2.5 mmol/L Troponin I High Sensitivity 953 *H 4-75 ng/L Coagulation Labs: Test 06/10/24 14:00 06/10/24 09:57 Range/Units Prothrombin Time 14.1 H 9.6-11.6 SEC Prothromb Time International Ratio 1.29 H 0.85-1.15 Activated Partial Thromboplast Time 34.2 26.3-35.5 SEC Fibrinogen 346 180-350 mg/dL DIAGNOSTICS / RADIOLOGY RESULTS: Signed PATIENT: CHRIS CHOI MR#: [id number] : 1970 SEX: M AGE: 53 LOCATION: [facility] ORDER 2300 STATUS: ADM IN REPORT#: [id number] SERVICE 06 REASON: Intubated ORDERING PHYSICIAN: LARISSA ROGERS PROCEDURE: CXR1VW - CHEST 1VW Exam Type: CHEST 1VW Clinical Information: Intubated Comparison: None Findings: Pulmonary pattern is as before. No worrisome interval changes have taken place. Impression: Stable exam. DICTATED BY: NOAH MARINELLI MD DATE: 06/11/24848 ELECTRONICALLY SIGNED BY: NOAH MARINELLI MD DATE: 06/11/24852 PLAN Daily sedation vacation. daily SBT's change sedation to Precedex gtt. Change Protonix gtt to IVP BID NEURO: Minimize central acting medications as possible. Fall Precautions. Well lighted room through the day and minimize interruptions through the night to prevent acute delirium. Lactulose enema and recheck ammonia in am PULMONARY: Supplemental 02 as needed Titrate Fio2 to keep Spo2 > or = 90% DuoNebs and CPT as needed IS hourly while awake for pulmonary hygiene Out of bed to chair as tolerated VAP Bundle Vent/BIPAP Settings: Assist-control volume control with tidal volume of 425 respiratory rate of 18 FiO2 45% and PEEP of 5. We will be adjusting ventilator accordingly to saturations and ABGs. CARDIOVASCULAR: Follow hemodynamics. Titrate vasopressor to keep MAP >65 or systolic blood pressure >95mmHg Cardiac monitoring Drips:: Levophed weaning Sandostatin change Versed and Fentanyl to precedex gtt per protocol LINES: RT IJ CVC PIV GI & NUTRITION: Continue nutritional support Aspirations precautions Prokinetic agents and laxatives as needed To low intermittent suction Per GI EGD canceled due to pressor support Continue Sandostatin per GI recs KIDNEYS & ELECTROLYTES: Strict monitoring of intake and output Daily weights Avoid nephrotoxic agents Monitor electrolytes and replace as needed Goal urine output of 30mL/hr or 0.5mL/kg/hr Monitor electrolytes and replace accordingly ENDOCRINE: Goal blood glucose between 100-180 at all times. DC IV insulin due to DKA resolved. INFECTIOUS DISEASE: Trend temperature. [place]on-culture if febrile. Micro: Urine culture no growth Blood cultures no growth Respiratory cultures no growth Antibiotics: Vancomycin Cefepime Flagyl HEMATOLOGY & COAGULATION: Monitor H&H. Keep Hgb > 7 Transfuse 1 unit of PRBC for Hgb < 7 Transfuse 1 pack of platelets of platelets < 20, 000 Watch for any signs and symptoms of bleeding SKIN: Pressure ulcer prevention per facility protocol Rehab: PT/OT Prophylaxis: GI: Protonix drip DVT: SCDs due to GI bleed. Code Status: Full Resuscitation Disposition: ICU Other: Total patient care time exceeds 60 minutes excluding all procedures. Case was discussed and seen with my supervising physician. The above plan was formulated and agreed upon. LARISSA ROGERS Jun 11, 2024 09:21
--- NOTE | 2024-06-11 09:42 | PN ---
[facility] PROGRESS NOTE Date of Service: Jun 11, 2024 Time of Service: 09:36 SUBJECTIVE: [53-year-old male who was admitted due to persistent nausea vomiting, patient also was noted with metabolic acidosis initially was placed on BiPAP support and patient decompensated immediately and was intubated. He is being managed by critical care team. He continues to be intubated on AC mode. Patient is currently on pressor support. Patient was supposed to have an EGD done yesterday unfortunately unable to due to pressor support. Evaluated in ICU room 206, now DNR. Still currently intubated. Patient on IV antibiotic with vancomycin cefepime. We will continue to follow recommendations from specialist. Labs reviewed. REVIEW OF SYSTEMS CONSTITUTIONAL: Denies fevers, chills, or night sweats. No unintentional weight loss reported. NEUROLOGICAL: Denies headache, amaurosis fugax, motor weakness, sensory deficit, vertigo/spinning sensation, gait abnormalities, or tremors. ENT: No hearing loss, otalgia, otorrhea, rhinitis, rhinorrhea, hoarseness, or sore throat. CARDIOVASCULAR: Denies any exertional angina, dyspnea on exertion, orthopnea, paroxysmal nocturnal dyspnea, palpitations, life-threatening arrhythmias, claudication. PULMONARY: Denies any shortness of breath, cough, phlegm/sputum, hemoptysis, pleuritic chest pain. SLEEP: Denies morning headaches, daytime somnolence or napping. Denies difficulty falling asleep, staying asleep, waking from sleep. Denies knowledge of snoring. GASTROINTESTINAL: Complains of nausea , vomiting , dark stool and abdominal pain Denies any type of dysphagia to either liquids or solids. Denies pyrosis, early satiety, diarrhea, constipation, or changes in stool consistency or caliber. Denies coffee-ground emesis, hematemesis, GENITOURINARY: Denies frequency, urgency, nocturia, hematuria or incontinence (Storage/Irritative symptoms.) Low urinary stream, straining to void, urinary intermittency or hesitancy, splitting of the voiding stream, terminal dribbling. ENDOCRINOLOGIC: Denies polyuria, polydipsia, polyphagia or heat/cold intolerances. HEMATOLOGIC: Denies thrombophilia/previous clots, or coagulopathy/bleeding disorders. ONCOLOGIC: Denies personal history of malignancy. DERMATOLOGIC: Denies rashes or pruritus. PSYCHIATRIC: Denies any suicidal or homicidal ideation. Denies hallucinations. PHYSICAL EXAM GENERAL APPEARANCE: The patient is awake, alert, and oriented, in no acute cardiopulmonary distress. NEUROLOGICAL: Cranial nerves II-XII grossly intact. Motor is 5/5 in bilateral upper and lower extremities proximal to distal. No sensory deficits. HEENT: Face is symmetric. Pupils are equal and reactive. Extraocular movements are intact. NECK: Supple. No JVD. No thyromegaly. No submental, submandibular, pre- /postauricular, occipital or supraclavicular lymphadenopathy. CHEST: Normal chest expansion. No Telemetry. LUNGS: Decreased bilateral breath sounds on the lower bases per auscultation CARDIOVASCULAR: Tachycardic Regular. S1 and S2 normal. No appreciable rubs, murmurs or gallops. ABDOMEN: Soft, nontender, and nondistended. There is no rebound, voluntary guarding, or rigidity. : Deferred. Gomez. EXTREMITIES: Non-edematous and not cyanotic. No clubbing. Good capillary refill. SKIN: No skin breakdown. Vital Signs (last 8hr) Date Time Temp Pulse Resp B/P (MAP) Pulse Ox O2 Delivery O2 Flow Rate FiO2 06/11/24 09:34 95 50 06/11/24 07:10 90 50 06/11/24 06:46 90 24 107/71 (83) 99 06/11/24 06:31 93 24 107/67 (80) 99 06/11/24 06:16 89 24 125/77 (93) 99 06/11/24 06:01 91 24 121/74 (90) 99 45 06/11/24 05:46 91 24 130/84 (99) 99 06/11/24 05:31 90 24 133/77 (95) 99 06/11/24 05:16 89 24 129/78 (95) 99 06/11/24 05:01 88 24 129/81 (97) 99 45 06/11/24 04:46 93 24 128/79 (95) 99 06/11/24 04:31 89 24 136/82 (100) 99 06/11/24 04:16 86 24 123/75 (91) 100 06/11/24 04:01 99.1 82 24 134/80 (98) 100 45 06/11/24 04:00 100 Ventilator+ 50 06/11/24 03:46 85 24 132/79 (96) 100 06/11/24 03:31 86 24 135/78 (97) 100 06/11/24 03:16 88 24 136/81 (99) 100 06/11/24 03:01 88 24 140/80 (100) 100 50 06/11/24 02:46 90 24 139/78 (98) 100 06/11/24 02:31 88 24 138/81 (100) 100 06/11/24 02:16 86 24 137/81 (99) 100 06/11/24 02:01 91 24 139/83 (101) 100 50 06/11/24 01:58 86 50 06/11/24 01:46 87 24 131/79 (96) 100 LABS: Laboratory: Test 06/11/24 07:57 06/11/24 05:18 06/11/24 04:04 06/10/24 20:50 Range/Units Whole Blood Glucose 131 H 70-110 MG/DL White Blood Count 13.4 H 4.8-10.8 K/uL Red Blood Count 2.84 L 4.50-6.20 MIL/uL Hemoglobin 10.2 L 14.0-18.0 g/dL Hematocrit 29.9 L 42-54 % Mean Corpuscular Volume 105.3 H 79-99 fL Mean Corpuscular Hemoglobin 35.9 H 27.0-33.0 pg Mean Corpuscular Hemoglobin Concent 34.1 32.0-36.0 g/dL Red Cell Distribution Width 12.0 11.0-15.5 % Platelet Count 51 L 130-400 K/uL Mean Platelet Volume 12.3 H 7.5-10.5 fL Nucleated Red Blood Cells 0.0 0.0-0.19 % Sodium Level 145 136-145 mmol/L Potassium Level 4.2 3.5-5.1 mmol/L Chloride Level 109 101-111 mmol/L Carbon Dioxide Level 26 21-32 mmol/L Blood Urea Nitrogen 16 7-18 mg/dL Creatinine 1.4 H 0.5-1.3 mg/dL Glomerular Filtration Rate Calc 59 >90 mL/min Random Glucose 128 H 70-105 mg/dL Total Calcium 7.2 L 8.5-10.1 mg/dL Magnesium Level 1.50 L 1.80-2.40 mg/dL Total Bilirubin 2.3 H 0.2-1.0 mg/dL Aspartate Amino Transf (AST/SGOT) 100 H 10-37 U/L Alanine Aminotransferase (ALT/SGPT) 33 12-78 U/L Alkaline Phosphatase 67 50-136 U/L Ammonia 13 11-32 umol/L Total Protein 5.6 L 6.0-8.3 g/dL Albumin 2.2 L 3.5-5.0 g/dL Blood Gas Specimen Type Arterial Arterial Blood pH 7.518 H 7.350-7.450 Arterial Blood Partial Pressure CO2 31 L 35-48 mmHg Arterial Blood Partial Pressure O2 140.9 H 83.0-108.0 mmHg Arterial Blood HCO3 24.2 21.0-28.0 mmol/L Arterial Blood Oxygen Saturation 99.0 H 94.0-98.0 % Arterial Blood Base Excess 2.3 -2.0-3.0 mmol/L Blood Gas Temperature 37.0 35.5-37.0 CELSIUS Blood Gas Respiration Rate 24.0 min. Blood Gas Vent Mode AC ROOM AIR FiO2 50.0 % Blood Gas Tidal Volume 425 ml Blood Gas PEEP 5 cm H2O Blood Gas Specimen Comment RR,RN [place] Vancomycin Level Trough 32.9 *H 10.0-20.0 UG/ML Test 06/10/24 14:00 06/10/24 09:57 06/10/24 04:47 06/10/24 04:23 Range/Units Prothrombin Time 14.1 H 9.6-11.6 SEC Prothromb Time International Ratio 1.29 H 0.85-1.15 Activated Partial Thromboplast Time 34.2 26.3-35.5 SEC Whole Blood Ketones Quantitative 3.4 H 0.0-0.6 mmol/L Erythrocyte Sedimentation Rate 13 0-20 MM/HR Fibrinogen 346 180-350 mg/dL Iron Level 10 L 65-175 mcg/dL Total Iron Binding Capacity 153 L 250-450 mcg/dL Percent Iron Saturation 6.5 L 30-44 % Carcinoembryonic Antigen 4.0 0.0-4.7 ng/mL CA 19-9 Antigen 66 H 0-35 U/mL Vitamin B12 Level 1187 H 193-986 pg/mL Anti-Nuclear Antibody Screen Negative Negative KYA-1 Antibody SS-A/Ro Antibody SS-B/La Antibody Sm (Rushing) IgG Antibody, Quant HIGH MAN IgG Antibody, Quantitative Scl-70 (Scleroderma) Antibody Anti-Double Strand DNA Antibody Anti-Centromere IgG Antibody HIV (1&2) Antibody Non-Reactive Negative HIV P24 Antigen, Qualitative Non-Reactive Negative Immature Granulocyte % (Auto) 4.5 H 0-1 % Neutrophils (%) (Auto) 81.2 H 40.0-77.0 % Lymphocytes (%) (Auto) 8.3 L 21.0-51.0 % Monocytes (%) (Auto) 5.5 3.0-13.0 % Eosinophils (%) (Auto) 0.2 0.0-8.0 % Basophils (%) (Auto) 0.3 0.0-5.0 % Neutrophils # (Auto) 9.1 H 1.8-7.7 K/uL Lymphocytes # (Auto) 0.9 L 1.0-4.8 K/uL Monocytes # (Auto) 0.6 0.1-1.0 K/uL Eosinophils # (Auto) 0.02 0.00-0.70 K/uL Basophils # (Auto) 0.03 0.00-0.20 K/uL Absolute Immature Granulocyte (auto 0.51 0-1 K/uL Platelet Morphology Comment See comments B-Type Natriuretic Peptide 1180 H 0-100 pg/mL Procalcitonin 9.46 H 0.05-0.5 ng/mL Hemoglobin (Blood Gas) 12.4 L 13.5-17.5 g/dL Sodium (Blood Gas) 143 136-145 MMOL/L Bedside Potassium (Blood Gas) 4.0 3.4-4.5 MMOL/L Bedside Chloride (Blood Gas) 108 H 98-107 MMOL/L Bedside Glucose (Blood Gas) 171 H 65-95 MG/DL Bedside Ionized Calcium (Blood Gas) 1.01 L 1.15-1.33 MMOL/L Bedside Lactic Acid (Blood Gas) 2.06 H 0.36-0.75 MMOL/L Test 06/09/24 21:12 06/09/24 18:01 Range/Units Lactic Acid Level 2.2 0.8-2.5 mmol/L Troponin I High Sensitivity 953 *H 4-75 ng/L Current Medications Medications (Trade) Dose Ordered Sig/Quan Route PRN Reason Start Time Stop Time Status Last Admin Dose Admin Acetaminophen (TYLenol 500MG TAB) 500 mg Q6H PRN PO TEMP < 101.1 AND/OR HEADACHE 06/09/24 18:00 07/09/24 17:59 06/09/24 23:54 500 MG Artificial Tears (Artificial Tears) 1 DROP OR AD Q8H OU 06/09/24 09:00 07/09/24 08:59 06/11/24 09:11 1 DROP Cefepime HCl (MAXipime 2 gm vial) 2 gm Q12H IVPB 06/11/24 05:00 06/19/24 08:59 06/11/24 04:20 2 GM Cefepime HCl (MAXipime 2 gm vial) 2 gm Q8H IVPB 06/09/24 09:00 06/10/24 19:49 DC 06/10/24 16:44 2 GM Chlorhexidine Gluconate (Peridex) 15 ml Q8H MM 06/09/24 09:00 06/23/24 08:59 06/11/24 09:10 15 ML Dextrose/Sodium Chloride 1,000 ml @ 0 mls/hr AD IV 06/09/24 10:00 07/09/24 09:59 Fentanyl Citrate 100 ml @ 2.5 mls/hr PROTOCOL IV 06/09/24 06:30 06/16/24 06:29 06/11/24 06:24 2.5 MLS/HR Folic Acid (FolVITE 5 MG/ML VIAL) 1 mg DAILY IV 06/09/24 18:00 07/09/24 17:59 06/11/24 09:09 1 MG Furosemide (LASix 20MG VIAL) 20 mg Q12H IV 06/09/24 12:00 06/09/24 11:26 DC Furosemide (LASix 20MG VIAL) 20 mg Q6H6 IV 06/09/24 12:00 07/09/24 11:59 06/11/24 06:14 20 MG Heparin Sodium/ Dextrose 250 ml @ 0 mls/hr PROTOCOL IV 06/09/24 03:30 06/09/24 09:45 DC 06/09/24 03:31 10.78 MLS/HR Insulin Human Regular (humuLIN R 100 UNIT/ML 3ML) INSULIN SLIDING SCAL... Q6H6 SQ 06/11/24 12:00 07/11/24 11:59 Insulin Human Regular 100 unit/ Sodium Chloride 101 ml @ 0 mls/hr PROTOCOL IV 06/09/24 10:00 07/09/24 09:59 06/09/24 11:41 1 MLS/HR Levofloxacin/ Dextrose (LEvaquIN 750 MG/ D5W 150 ML) 750 mg Q24H IV 06/09/24 06:30 06/09/24 08:29 DC Lorazepam (AtiVAN) 2 mg Q4H PRN IVP ALCOHOL WITHDRAWAL PROTOCOL 06/09/24 18:00 06/16/24 17:59 Lorazepam (AtiVAN) 4 mg Q2H PRN IVP ALCOHOL WITHDRAWAL PROTOCOL 06/09/24 18:00 06/16/24 17:59 Magnesium Sulfate 50 ml @ 0 mls/hr PROTOCOL IV 06/09/24 10:00 07/09/24 09:59 06/11/24 07:13 25 MLS/HR Magnesium Sulfate 50 ml @ 0 mls/hr PROTOCOL PRN IV OTHER [SEE ORDER COMMENTS] 06/09/24 01:00 06/09/24 06:50 DC 06/09/24 01:03 25 MLS/HR Magnesium Sulfate 50 ml @ 0 mls/hr PROTOCOL PRN IV OTHER [SEE ORDER COMMENTS] 06/09/24 07:00 06/09/24 08:35 DC Magnesium Sulfate 50 ml @ 0 mls/hr PROTOCOL PRN IV low magnesium 06/09/24 08:30 06/09/24 09:46 DC Metronidazole/ Sodium Chloride 100 ml @ 100 mls/hr Q8H6 IVPB 06/09/24 14:00 06/19/24 13:59 06/11/24 06:14 100 MLS/HR Midazolam HCl (Midazolam 100mg-0.9% NS 100ml) 100 ml PROTOCOL IV 06/09/24 15:30 07/09/24 15:29 06/11/24 08:05 100 ML Multivitamins Therapeutic (Multivitamin Tablet) 1 tab DAILY PO 06/10/24 09:00 07/10/24 08:59 Norepinephrine Bitartrate (Norepineph 16 Mg/250ml NS Premix) HIGH ALERT Init... PROTOCOL IV 06/09/24 12:30 07/09/24 12:29 06/11/24 03:25 15.47 MG Octreotide Acetate 1250 mcg/ Sodium Chloride 250 ml @ 0 mls/hr PROTOCOL IV 06/09/24 08:30 07/09/24 08:29 06/09/24 21:53 5 MLS/HR Octreotide Acetate 500 mcg/ Sodium Chloride 100 ml @ 0 mls/hr PROTOCOL IV 06/09/24 04:30 06/09/24 08:13 DC 06/09/24 05:50 5 MLS/HR Ondansetron HCl (zoFRAN 4MG INJ) 4 mg Q4H PRN IV NAUSEA 06/09/24 18:00 07/09/24 17:59 Pantoprazole Sodium 80 mg/ Sodium Chloride 100 ml @ 10 mls/hr Q10H IVP 06/09/24 04:00 07/09/24 03:59 06/11/24 08:04 10 MLS/HR Pharmacy Profile Note (Pharmacy Communication) 1 each PROTOCOL PRN MISC ETOH Withdrawal Score changes 06/09/24 18:00 06/16/24 17:59 Phenylephrine HCl 10 mg/Sodium Chloride 250 ml @ 0 mls/hr PROTOCOL PRN IV PROTOCOL 06/09/24 07:00 07/09/24 06:59 06/09/24 09:27 96 MLS/HR Potassium Chloride 20 meq/ Sodium Chloride 1,010 ml @ 0 mls/hr PROTOCOL IV 06/09/24 10:00 07/09/24 09:59 Potassium Chloride/Dextrose/ Sod Cl 1,000 ml @ 0 mls/hr AD IV 06/09/24 10:00 07/09/24 09:59 Potassium Chloride 100 ml @ 50 mls/hr AD PRN IV POTASSIUM PROTOCOL 06/09/24 07:00 06/09/24 08:34 DC Potassium Chloride 100 ml @ 50 mls/hr AD PRN IV POTASSIUM PROTOCOL 06/09/24 08:30 07/09/24 08:29 06/11/24 04:24 50 MLS/HR Potassium Chloride 100 ml @ 100 mls/hr AD PRN IV POTASSIUM PROTOCOL 06/09/24 08:30 06/09/24 08:41 DC Potassium Chloride (K-Dur/Klor-Con 20meq) 20 meq AD PRN PO POTASSIUM PROTOCOL 06/09/24 08:30 07/09/24 08:29 Potassium Chloride (KCl 10% Elixir 20meq/15ml) 20 meq AD PRN PO POTASSIUM PROTOCOL 06/09/24 08:30 07/09/24 08:29 Sodium Bicarbonate 150 meq/Dextrose 1,150 ml @ 150 mls/hr Q7H40M IVP 06/09/24 00:30 06/09/24 18:11 DC 06/09/24 01:18 150 MLS/HR Sodium Chloride 1,000 ml @ 200 mls/hr PROTOCOL IV 06/09/24 10:00 07/09/24 09:59 Thiamine HCl (Vitamin B-1) 300 mg DAILY IV 06/09/24 18:00 07/09/24 17:59 06/11/24 09:11 300 MG Vancomycin HCl 250 ml @ 125 mls/hr Q12H IV 06/09/24 22:00 06/10/24 21:50 DC 06/10/24 10:06 125 MLS/HR Vancomycin HCl 250 ml @ 125 mls/hr Q24H IV 06/11/24 22:00 06/21/24 21:59 Vancomycin HCl (Vancomycin Protocol) 1 each AD IV 06/09/24 09:00 06/23/24 08:59 Vasopressin 20 units/Sodium Chloride 100 ml @ 0 mls/hr PROTOCOL IV 06/09/24 07:00 07/09/24 06:59 06/09/24 08:20 9 MLS/HR DIAGNOSTICS / RADIOLOGY: [ ] ASSESSMENT: Acute respiratory failure POA Elevated troponin R/O ACS POA Elevated D-dimer of 3989 Metabolic acidosis POA Acute blood loss anemia POA Acute upper and lower GI bleed, POA Acute thrombocytopenia POA Acute on chronic diastolic CHF POA Hyperglycemia POA Hypomagnesemia POA Cannabis abuse POA Active alcohol drinker POA Suspected urinary tract infection POA Possible bilateral lung pneumonia POA Hypertension POA Suspected GI bleed POA PLAN: Continue ICU admission Appreciate critical Care team, patient currently intubated, on AC mode and on norepinephrine drip Patient will continued to be NPO, NG tube in place to LIS Patient continue IV antibiotics on vancomycin, cefepime and metronidazole Patient will continue Protonix and Sandostatin drip Continue to monitor electrolytes and replete as necessary Gastroenterology recommended EGD today Appreciate recommendations from Cardiology, elevated troponin is likely in the setting of acute respiratory failure and suspected GI bleed, no plans for invasive cardiac workup at this time We will continue recommendations of Lasix 20 mg IV every 6 hours. We will repeat labs in the morning Case was discussed with Dr. Norris, above plan was formulated Code Status: DNR Disposition: TBD Prognosis: Guarded NEURO: Minimize central acting medications as possible. Fall Precautions. Well lighted room through the day and minimize interruptions through the night to prevent acute delirium. PULMONARY: Supplemental 02 as needed BiPAP as necessary, for respiratory distress Titrate Fio2 to keep Spo2 > or = 90% DuoNebs and CPT as needed IS hourly while awake for pulmonary hygiene Out of bed to chair as tolerated VAP Bundle Maintain aspiration precautions at all times CARDIOVASCULAR: Follow hemodynamics. Vital signs per facility protocol GI & NUTRITION: Continue nutritional support Aspirations precautions Prokinetic agents and laxatives as needed KIDNEYS & ELECTROLYTES: Strict monitoring of intake and output Daily weights Avoid nephrotoxic agents Monitor electrolytes and replace as needed Goal urine output of 30mL/hr or 0.5mL/kg/hr Medications to be dosed according to renal function. Avoid contrast if possible ENDOCRINE: Maintain blood glucose between 100-180 at all times. Insulin sliding scale for blood glucose management Hypoglycemia and hyperglycemia protocol in place INFECTIOUS DISEASE: Trend temperature, WBC and procalcitonin level Follow cultures, deescalate antibiotics as soon as possible. Panculture if new onset fever HEMATOLOGY & COAGULATION: Monitor H&H. Keep Hgb > 7 Transfuse 1 unit of PRBC for Hgb < 7 Transfuse 1 pack of platelets of platelets < 20, 000 Watch for any signs and symptoms of bleeding SKIN: Pressure ulcer prevention per facility protocol Specialty mattress as needed ] ATTESTATION BY PHYSICIAN I have seen and examined the patient. I reviewed the documentation, medical decision making, and treatment plan as noted by the mid-level provider above. I agree with the findings and plan of care. LAUREN NORRIS MD, JANICE B AGPCHEMAL Jun 11, 2024 09:42
[2024-06-11 09:45] LABS: HEPATITIS A IGM ANTIBODY Non-Reactive (Nonreactive); HEPATITIS B CORE IGM ANTIBODY Non-Reactive (Negative); HEPATITIS B SURFACE ANTIGEN Non-Reactive (Nonreactive); HEPATITIS C ANTIBODY Non-Reactive (Nonreactive)
[2024-06-11 09:56] LABS: CREATININE 1.5 mg/dL (0.5-1.3); POTASSIUM 3.2 mmol/L (3.5-5.1)
--- NOTE | 2024-06-11 10:42 | NUR ---
DR. AVENDANO MADE AWARE OF NEW CONSULT, NO NEW ORDERS AT THIS TIME. Addendum: 06/11/24 at 1055 by ISABELLA CHAMBERLAIN RN RN [facility] PT
[2024-06-11] MEDS: INSULIN humuLIN R 100 UNIT/ML 3ML SQ SCH (12:00)
[2024-06-11] MEDS: miDODRine HCL 5 MG TABLET PO SCH (13:49)
--- NOTE | 2024-06-11 16:55 | NUR ---
called dr. Morrissey to get an update on future EGD PROCEDURE TO BE DONE ON PT. INFORMED DR. MORRISSEY OF CURRENT LEVOPHED DRIP AMOUNT AND CURRENT PT STATUS WELL LABS AND VITAL SIGNS, PER DR. MORRISSEY EGD WILL BE POSTPONED UNTIL ALL PRESSORS ARE OFF AND PT IS MORE STABLE.
--- NOTE | 2024-06-11 17:01 | NUR ---
INITIAL ASSESSMENT Patient lives alone. He has no home services or DME as per sister. Patient was able to complete ADLs independently and was driving prior to hospitalization. PCP is Dr. Villa Jones. Pharmacy is [facility] in [place]. Patient's sister and brother are at bedside and will discuss with MD prognosis and discharge disposition for patient. Addendum: 06/11/24 at 1703 by GLENNA MCGARRY SS Amended: Links added.
--- NOTE | 2024-06-11 17:03 | NUR ---
EMERGENCY CONTACTS Ely Francesca (sister) Iftikhar Vickers (brother) -
[2024-06-11] MEDS: PANTOPrazole 40 MG/VIAL IVP SCH (21:09)
[2024-06-11] MEDS: VANCOMYCIN 1G/250ML KIT 250 ML IV SCH (21:10)
[2024-06-12] VITALS (100 sets, daily range): BP systolic 85–144; BP diastolic 54–85; PULSE 62–107; RESP 9–24; TEMP 97.6–98.3; O2SAT 98–100
[2024-06-12 04:14] LABS: ABG BASE EXCESS 0.6 mmol/L (-2.0-3.0); ABG HCO3 24.7 mmol/L (21.0-28.0); ABG OXYGEN SATURATION 98.3 % (94.0-98.0); ABG PCO2 38 mmHg (35-48); ABG PH 7.427 (7.350-7.450); DEVICE COMMENT RN, RR; PO2, ARTERIAL BG 114.5 mmHg (83.0-108.0); VENT MODE, BG AC VC (ROOM AIR)
[2024-06-12 04:40] LABS: HEMATOCRIT 29.8 % (42-54); MEAN CORPUSCULAR HEMOGLOBIN 36.3 pg (27.0-33.0); MEAN CORPUSCULAR HGB CONC 33.9 g/dL (32.0-36.0); MEAN CORPUSCULAR VOLUME 107.2 fL (79-99); RED BLOOD CELL COUNT(AUTO) 2.78 MIL/uL (4.50-6.20); RED CELL DISTRIBUTION WIDTH 12.5 % (11.0-15.5); WHITE BLOOD COUNT (AUTO) 10.9 K/uL (4.8-10.8)
[2024-06-12 05:02] LABS: ALBUMIN 2.3 g/dL (3.5-5.0); BILIRUBIN,TOTAL 2.5 mg/dL (0.2-1.0); CREATININE 1.4 mg/dL (0.5-1.3); MAGNESIUM 1.8 mg/dL (1.80-2.40); POTASSIUM 3.7 mmol/L (3.5-5.1); TOTAL PROTEIN, SERUM 5.9 g/dL (6.0-8.3)
[2024-06-12] MEDS: MAGNESIUM 2GM PREMIX 50ML 50 ML IV PRN (06:49)
--- NOTE | 2024-06-12 07:37 | PN ---
[facility] CARDIOLOGY PROGRESS NOTE Date Patient Seen: Jun 12, 2024 Time of Visit: 07:31 Interval History: [EGD not performed due to patient needing pressor support. Patient remains intubated. CXR with bilateral pleural effusions and pulmonary edema. Improved leukocytosis. ] Physical Examination: GENERAL: [No acute distress.] HEAD: [Normal with no signs of head trauma.] EYES: [PERRLA, EOMI, conjunctiva and sclera normal.] ENT: [Hearing grossly intact, normal oropharynx.] NECK: [Supple without JVD. There is no tenderness, lymphadenopathy, or masses. No thyromegaly. Normal carotid upstrokes without bruits.] LUNGS: [rales bilaterally, intubated] HEART: [Normal rate and rhythm. Normal S1 and S2 without mumurs, gallop or rub.] VASC: [Peripheral pulses +2 bilaterally.] ABD: [Bowel sounds normal, soft, nontender, no masses, no organomegaly. No audible bruits.] : [Not examined] LYMPH: [No lymphadenopathy noted.] EXT: [No clubbing, cyanosis or edema.] SKIN: [No rashes or lesions noted.] NEURO: [Awake, alert, and oriented x3. No focal sensory or strength deficits noted.] Laboratory: [ ] Hematology Labs: Test 06/12/24 04:26 06/10/24 09:57 Range/Units White Blood Count 10.9 H 4.8-10.8 K/uL Red Blood Count 2.78 L 4.50-6.20 MIL/uL Hemoglobin 10.1 L 14.0-18.0 g/dL Hematocrit 29.8 L 42-54 % Mean Corpuscular Volume 107.2 H 79-99 fL Mean Corpuscular Hemoglobin 36.3 H 27.0-33.0 pg Mean Corpuscular Hemoglobin Concent 33.9 32.0-36.0 g/dL Red Cell Distribution Width 12.5 11.0-15.5 % Platelet Count 55 L 130-400 K/uL Mean Platelet Volume 11.5 H 7.5-10.5 fL Nucleated Red Blood Cells 0.0 0.0-0.19 % Erythrocyte Sedimentation Rate 13 0-20 MM/HR Chemistry Labs: Test 06/12/24 06:55 06/12/24 04:26 06/11/24 05:18 06/10/24 14:00 Range/Units Whole Blood Glucose 203 H 70-110 MG/DL Sodium Level 146 H 136-145 mmol/L Potassium Level 3.7 3.5-5.1 mmol/L Chloride Level 107 101-111 mmol/L Carbon Dioxide Level 26 21-32 mmol/L Blood Urea Nitrogen 22 H 7-18 mg/dL Creatinine 1.4 H 0.5-1.3 mg/dL Glomerular Filtration Rate Calc 59 >90 mL/min Random Glucose 197 #H 70-105 mg/dL Total Calcium 7.6 L 8.5-10.1 mg/dL Magnesium Level 1.80 1.80-2.40 mg/dL Total Bilirubin 2.5 H 0.2-1.0 mg/dL Aspartate Amino Transf (AST/SGOT) 85 H 10-37 U/L Alanine Aminotransferase (ALT/SGPT) 32 12-78 U/L Alkaline Phosphatase 80 50-136 U/L Total Protein 5.9 L 6.0-8.3 g/dL Albumin 2.3 L 3.5-5.0 g/dL Ammonia 13 11-32 umol/L Whole Blood Ketones Quantitative 3.4 H 0.0-0.6 mmol/L Test 06/10/24 09:57 Range/Units Iron Level 10 L 65-175 mcg/dL Total Iron Binding Capacity 153 L 250-450 mcg/dL Percent Iron Saturation 6.5 L 30-44 % Tumor Marker Alpha Fetoprotein 5.6 0.0-8.4 ng/mL Carcinoembryonic Antigen 4.0 0.0-4.7 ng/mL CA 19-9 Antigen 66 H 0-35 U/mL Vitamin B12 Level 1187 H 193-986 pg/mL Coagulation Labs: Test 06/10/24 14:00 06/10/24 09:57 Range/Units Prothrombin Time 14.1 H 9.6-11.6 SEC Prothromb Time International Ratio 1.29 H 0.85-1.15 Activated Partial Thromboplast Time 34.2 26.3-35.5 SEC Fibrinogen 346 180-350 mg/dL Diagnostics / Radiology: [Copy/Paste Echos/Imaging Report here] Impression and Plan: [Type II OH Acute on chronic diastolic congestive heart failure HFrEF 40% Acute respiratory failure s/p intubation Pulmonary edema Suspected GI bleed iron def anemia Neutropenia improved/Thrombocytopenia persists Electrolyte derangement Elevated D-dimer of 3989 HTN Positive for THC Metabolic acidosis POA Hyperglycemia POA Hypomagnesemia POA Active alcohol drinker POA #Type II OH due to Acute on chronic CHF LVEF 40% -Troponin in a stable flat pattern. Gravely ill, we will defer further cardiac testing until improvement. -urine output 3.7 cc, Cr stable at 1.4 -CXR slightly worse today, will increase lasix 20 mg IV q12h to 40 mg q12h -hold anticoagulation given thrombocytopenia Yoana Hill MD] YOANA HILL MD Jun 12, 2024 07:37
[2024-06-12] MEDS: furoSEMIDE 20MG VIAL IV SCH (08:16)
[2024-06-12] MEDS: LACTULOSE 20 GM/30 ML UDCUP PO SCH (08:22)
--- NOTE | 2024-06-12 08:23 | HMCIMG ---
Exam Type: CHEST 1VW Clinical Information: Intubated Comparison: None Findings: Pulmonary pattern is as before. No worrisome interval changes have taken place. Impression: Stable exam.
--- NOTE | 2024-06-12 10:42 | PN ---
[facility] PROGRESS NOTE Date of Service: Jun 12, 2024 Time of Service: 10:38 SUBJECTIVE: [53-year-old male who was admitted due to persistent nausea vomiting, patient also was noted with metabolic acidosis initially was placed on BiPAP support and patient decompensated immediately and was intubated. He is being managed by critical care team. He continues to be intubated on AC mode. Patient is still on pressor support. Continues with IV antibiotics, was started with furosemide 20 mg IV q.12 hours today. We will continue to monitor closely. Patient is still currently intubated. REVIEW OF SYSTEMS CONSTITUTIONAL: Denies fevers, chills, or night sweats. No unintentional weight loss reported. NEUROLOGICAL: Denies headache, amaurosis fugax, motor weakness, sensory deficit, vertigo/spinning sensation, gait abnormalities, or tremors. ENT: No hearing loss, otalgia, otorrhea, rhinitis, rhinorrhea, hoarseness, or sore throat. CARDIOVASCULAR: Denies any exertional angina, dyspnea on exertion, orthopnea, paroxysmal nocturnal dyspnea, palpitations, life-threatening arrhythmias, claudication. PULMONARY: Denies any shortness of breath, cough, phlegm/sputum, hemoptysis, pleuritic chest pain. SLEEP: Denies morning headaches, daytime somnolence or napping. Denies difficulty falling asleep, staying asleep, waking from sleep. Denies knowledge of snoring. GASTROINTESTINAL: Complains of nausea , vomiting , dark stool and abdominal pain Denies any type of dysphagia to either liquids or solids. Denies pyrosis, early satiety, diarrhea, constipation, or changes in stool consistency or caliber. Denies coffee-ground emesis, hematemesis, GENITOURINARY: Denies frequency, urgency, nocturia, hematuria or incontinence (Storage/Irritative symptoms.) Low urinary stream, straining to void, urinary intermittency or hesitancy, splitting of the voiding stream, terminal dribbling. ENDOCRINOLOGIC: Denies polyuria, polydipsia, polyphagia or heat/cold intolerances. HEMATOLOGIC: Denies thrombophilia/previous clots, or coagulopathy/bleeding disorders. ONCOLOGIC: Denies personal history of malignancy. DERMATOLOGIC: Denies rashes or pruritus. PSYCHIATRIC: Denies any suicidal or homicidal ideation. Denies hallucinations. PHYSICAL EXAM GENERAL APPEARANCE: The patient is awake, alert, and oriented, in no acute cardiopulmonary distress. NEUROLOGICAL: Cranial nerves II-XII grossly intact. Motor is 5/5 in bilateral upper and lower extremities proximal to distal. No sensory deficits. HEENT: Face is symmetric. Pupils are equal and reactive. Extraocular movements are intact. NECK: Supple. No JVD. No thyromegaly. No submental, submandibular, pre- /postauricular, occipital or supraclavicular lymphadenopathy. CHEST: Normal chest expansion. No Telemetry. LUNGS: Decreased bilateral breath sounds on the lower bases per auscultation CARDIOVASCULAR: Tachycardic Regular. S1 and S2 normal. No appreciable rubs, murmurs or gallops. ABDOMEN: Soft, nontender, and nondistended. There is no rebound, voluntary guarding, or rigidity. : Deferred. Gomez. EXTREMITIES: Non-edematous and not cyanotic. No clubbing. Good capillary refill. SKIN: No skin breakdown. Vital Signs (last 8hr) Date Time Temp Pulse Resp B/P (MAP) Pulse Ox O2 Delivery O2 Flow Rate FiO2 06/12/24 08:00 100 Ventilator+ 45 06/12/24 07:30 66 18 101/60 (74) 100 45 06/12/24 07:15 69 18 102/63 (76) 100 45 06/12/24 07:00 68 18 104/66 (79) 100 45 06/12/24 06:51 136/80 06/12/24 06:46 70 18 126/78 (94) 100 06/12/24 06:41 62 45 06/12/24 06:31 77 18 136/80 (98) 100 06/12/24 06:16 62 18 96/56 (69) 100 06/12/24 06:01 69 18 102/63 (76) 99 06/12/24 05:46 70 18 115/67 (83) 100 06/12/24 05:36 76 18 107/65 (79) 100 06/12/24 05:01 72 18 144/82 (102) 99 06/12/24 04:46 68 18 134/83 (100) 99 06/12/24 04:31 71 18 135/80 (98) 98 06/12/24 04:16 73 18 135/81 (99) 97 06/12/24 04:01 71 18 138/85 (102) 98 06/12/24 03:46 73 18 136/78 (97) 98 06/12/24 03:31 98.2 74 18 132/77 (95) 98 06/12/24 03:30 100 Ventilator+ 45 06/12/24 03:16 78 18 127/76 (93) 98 06/12/24 03:01 78 18 136/78 (97) 98 06/12/24 02:46 80 18 130/74 (92) 99 06/12/24 02:40 77 45 LABS: Laboratory: Test 06/12/24 06:55 06/12/24 04:26 06/12/24 04:13 06/11/24 21:00 Range/Units Whole Blood Glucose 203 H 70-110 MG/DL White Blood Count 10.9 H 4.8-10.8 K/uL Red Blood Count 2.78 L 4.50-6.20 MIL/uL Hemoglobin 10.1 L 14.0-18.0 g/dL Hematocrit 29.8 L 42-54 % Mean Corpuscular Volume 107.2 H 79-99 fL Mean Corpuscular Hemoglobin 36.3 H 27.0-33.0 pg Mean Corpuscular Hemoglobin Concent 33.9 32.0-36.0 g/dL Red Cell Distribution Width 12.5 11.0-15.5 % Platelet Count 55 L 130-400 K/uL Mean Platelet Volume 11.5 H 7.5-10.5 fL Nucleated Red Blood Cells 0.0 0.0-0.19 % Sodium Level 146 H 136-145 mmol/L Potassium Level 3.7 3.5-5.1 mmol/L Chloride Level 107 101-111 mmol/L Carbon Dioxide Level 26 21-32 mmol/L Blood Urea Nitrogen 22 H 7-18 mg/dL Creatinine 1.4 H 0.5-1.3 mg/dL Glomerular Filtration Rate Calc 59 >90 mL/min Random Glucose 197 #H 70-105 mg/dL Total Calcium 7.6 L 8.5-10.1 mg/dL Magnesium Level 1.80 1.80-2.40 mg/dL Total Bilirubin 2.5 H 0.2-1.0 mg/dL Aspartate Amino Transf (AST/SGOT) 85 H 10-37 U/L Alanine Aminotransferase (ALT/SGPT) 32 12-78 U/L Alkaline Phosphatase 80 50-136 U/L Total Protein 5.9 L 6.0-8.3 g/dL Albumin 2.3 L 3.5-5.0 g/dL Blood Gas Specimen Type Arterial Arterial Blood pH 7.427 7.350-7.450 Arterial Blood Partial Pressure CO2 38 35-48 mmHg Arterial Blood Partial Pressure O2 114.5 H 83.0-108.0 mmHg Arterial Blood HCO3 24.7 21.0-28.0 mmol/L Arterial Blood Oxygen Saturation 98.3 H 94.0-98.0 % Arterial Blood Base Excess 0.6 -2.0-3.0 mmol/L Blood Gas Temperature 37.0 35.5-37.0 CELSIUS Blood Gas Respiration Rate 18.0 min. Blood Gas Vent Mode AC VC ROOM AIR FiO2 45.0 % Blood Gas Tidal Volume 425 ml Blood Gas PEEP 5 cm H2O Blood Gas Specimen Comment RN, RR Vancomycin Level Trough 17.6 # 10.0-20.0 UG/ML Test 06/11/24 05:18 06/10/24 14:00 Range/Units Ammonia 13 11-32 umol/L Prothrombin Time 14.1 H 9.6-11.6 SEC Prothromb Time International Ratio 1.29 H 0.85-1.15 Activated Partial Thromboplast Time 34.2 26.3-35.5 SEC Whole Blood Ketones Quantitative 3.4 H 0.0-0.6 mmol/L Current Medications Medications (Trade) Dose Ordered Sig/Quan Route PRN Reason Start Time Stop Time Status Last Admin Dose Admin Acetaminophen (TYLenol 500MG TAB) 500 mg Q6H PRN PO TEMP < 101.1 AND/OR HEADACHE 06/09/24 18:00 07/09/24 17:59 06/09/24 23:54 500 MG Albumin Human 100 ml @ 50 mls/hr AD IV 06/12/24 11:00 06/14/24 10:59 UNV Artificial Tears (Artificial Tears) 1 DROP OR AD Q8H OU 06/09/24 09:00 07/09/24 08:59 06/12/24 08:20 1 DROP Cefepime HCl (MAXipime 2 gm vial) 2 gm Q12H IVPB 06/11/24 05:00 06/19/24 08:59 06/12/24 06:45 2 GM Cefepime HCl (MAXipime 2 gm vial) 2 gm Q8H IVPB 06/09/24 09:00 06/10/24 19:49 DC 06/10/24 16:44 2 GM Chlorhexidine Gluconate (Peridex) 15 ml Q8H MM 06/09/24 09:00 06/23/24 08:59 06/12/24 08:20 15 ML Dexmedetomidine/ Sodium Chloride (PRECEdex 400MCG/ 100ML-NS) 400 mcg PROTOCOL IV 06/11/24 20:30 07/11/24 20:29 Dextrose/Sodium Chloride 1,000 ml @ 0 mls/hr AD IV 06/09/24 10:00 06/11/24 13:29 DC Fentanyl Citrate 100 ml @ 2.5 mls/hr PROTOCOL IV 06/09/24 06:30 06/16/24 06:29 06/11/24 21:06 2.5 MLS/HR Folic Acid (FolVITE 5 MG/ML VIAL) 1 mg DAILY IV 06/09/24 18:00 07/09/24 17:59 06/12/24 08:16 1 MG Furosemide (LASix 20MG VIAL) 20 mg Q12H IV 06/09/24 12:00 06/09/24 11:26 DC Furosemide (LASix 20MG VIAL) 20 mg Q6H6 IV 06/09/24 12:00 06/12/24 07:38 DC 06/12/24 06:46 20 MG Furosemide (LASix 20MG VIAL) 40 mg Q12H IV 06/12/24 08:00 07/09/24 11:59 06/12/24 08:16 40 MG Heparin Sodium/ Dextrose 250 ml @ 0 mls/hr PROTOCOL IV 06/09/24 03:30 06/09/24 09:45 DC 06/09/24 03:31 10.78 MLS/HR Insulin Human Regular (humuLIN R 100 UNIT/ML 3ML) INSULIN SLIDING SCAL... Q6H6 SQ 06/11/24 12:00 07/11/24 11:59 06/12/24 06:59 6 UNIT Insulin Human Regular 100 unit/ Sodium Chloride 101 ml @ 0 mls/hr PROTOCOL IV 06/09/24 10:00 06/11/24 13:29 DC 06/09/24 11:41 1 MLS/HR Lactulose (Constulose 20gm/ 30ml Udcup) 20 gm DAILY PO 06/12/24 09:00 07/12/24 08:59 06/12/24 08:22 20 GM Levofloxacin/ Dextrose (LEvaquIN 750 MG/ D5W 150 ML) 750 mg Q24H IV 06/09/24 06:30 06/09/24 08:29 DC Lorazepam (AtiVAN) 2 mg Q4H PRN IVP ALCOHOL WITHDRAWAL PROTOCOL 06/09/24 18:00 06/16/24 17:59 Lorazepam (AtiVAN) 4 mg Q2H PRN IVP ALCOHOL WITHDRAWAL PROTOCOL 06/09/24 18:00 06/16/24 17:59 Magnesium Sulfate 50 ml @ 0 mls/hr PROTOCOL IV 06/09/24 10:00 06/11/24 13:29 DC 06/11/24 07:13 25 MLS/HR Magnesium Sulfate 50 ml @ 0 mls/hr PROTOCOL PRN IV OTHER [SEE ORDER COMMENTS] 06/09/24 01:00 06/09/24 06:50 DC 06/09/24 01:03 25 MLS/HR Magnesium Sulfate 50 ml @ 0 mls/hr PROTOCOL PRN IV OTHER [SEE ORDER COMMENTS] 06/09/24 07:00 06/09/24 08:35 DC Magnesium Sulfate 50 ml @ 0 mls/hr PROTOCOL PRN IV low magnesium 06/09/24 08:30 06/09/24 09:46 DC Magnesium Sulfate 50 ml @ 0 mls/hr PROTOCOL PRN IV MAGNESIUM PROTOCOL 06/11/24 15:00 07/11/24 14:59 06/12/24 06:49 25 MLS/HR Metronidazole/ Sodium Chloride 100 ml @ 100 mls/hr Q8H6 IVPB 06/09/24 14:00 06/19/24 13:59 06/12/24 06:45 100 MLS/HR Midazolam HCl (Midazolam 100mg-0.9% NS 100ml) 100 ml PROTOCOL IV 06/09/24 15:30 06/12/24 10:33 DC 06/11/24 08:05 100 ML Midodrine (PROAMatine 5 MG TABLET) 10 mg TID PO 06/11/24 14:00 07/11/24 13:59 06/12/24 08:22 10 MG Multivitamins Therapeutic (Multivitamin Tablet) 1 tab DAILY PO 06/10/24 09:00 07/10/24 08:59 Norepinephrine Bitartrate (Norepineph 16 Mg/250ml NS Premix) HIGH ALERT Init... PROTOCOL IV 06/09/24 12:30 07/09/24 12:29 06/12/24 06:51 16 MG Octreotide Acetate 1250 mcg/ Sodium Chloride 250 ml @ 0 mls/hr PROTOCOL IV 06/09/24 08:30 07/09/24 08:29 06/11/24 13:17 5 MLS/HR Octreotide Acetate 500 mcg/ Sodium Chloride 100 ml @ 0 mls/hr PROTOCOL IV 06/09/24 04:30 06/09/24 08:13 DC 06/09/24 05:50 5 MLS/HR Ondansetron HCl (zoFRAN 4MG INJ) 4 mg Q4H PRN IV NAUSEA 06/09/24 18:00 07/09/24 17:59 Pantoprazole Sodium (PROTonix 40MG INJ) 40 mg BID IVP 06/11/24 21:00 07/11/24 20:59 06/12/24 08:20 40 MG Pantoprazole Sodium 80 mg/ Sodium Chloride 100 ml @ 10 mls/hr Q10H IVP 06/09/24 04:00 06/11/24 13:24 DC 06/11/24 08:04 10 MLS/HR Pharmacy Profile Note (Pharmacy Communication) 1 each PROTOCOL PRN MISC ETOH Withdrawal Score changes 06/09/24 18:00 06/16/24 17:59 Phenylephrine HCl 10 mg/Sodium Chloride 250 ml @ 0 mls/hr PROTOCOL PRN IV PROTOCOL 06/09/24 07:00 07/09/24 06:59 06/09/24 09:27 96 MLS/HR Potassium Chloride 20 meq/ Sodium Chloride 1,010 ml @ 0 mls/hr PROTOCOL IV 06/09/24 10:00 06/11/24 13:29 DC Potassium Chloride/Dextrose/ Sod Cl 1,000 ml @ 0 mls/hr AD IV 06/09/24 10:00 06/11/24 13:29 DC Potassium Chloride 100 ml @ 50 mls/hr AD PRN IV POTASSIUM PROTOCOL 06/09/24 07:00 06/09/24 08:34 DC Potassium Chloride 100 ml @ 50 mls/hr AD PRN IV POTASSIUM PROTOCOL 06/09/24 08:30 07/09/24 08:29 06/12/24 06:46 50 MLS/HR Potassium Chloride 100 ml @ 100 mls/hr AD PRN IV POTASSIUM PROTOCOL 06/09/24 08:30 06/09/24 08:41 DC Potassium Chloride (K-Dur/Klor-Con 20meq) 20 meq AD PRN PO POTASSIUM PROTOCOL 06/09/24 08:30 07/09/24 08:29 Potassium Chloride (KCl 10% Elixir 20meq/15ml) 20 meq AD PRN PO POTASSIUM PROTOCOL 06/09/24 08:30 07/09/24 08:29 Sodium Bicarbonate 150 meq/Dextrose 1,150 ml @ 150 mls/hr Q7H40M IVP 06/09/24 00:30 06/09/24 18:11 DC 06/09/24 01:18 150 MLS/HR Sodium Chloride 1,000 ml @ 200 mls/hr PROTOCOL IV 06/09/24 10:00 06/11/24 13:29 DC Thiamine HCl (Vitamin B-1) 300 mg DAILY IV 06/09/24 18:00 07/09/24 17:59 06/12/24 08:18 300 MG Vancomycin HCl 250 ml @ 125 mls/hr Q12H IV 06/09/24 22:00 06/10/24 21:50 DC 06/10/24 10:06 125 MLS/HR Vancomycin HCl 250 ml @ 125 mls/hr Q24H IV 06/11/24 22:00 06/21/24 21:59 06/11/24 21:10 125 MLS/HR Vancomycin HCl (Vancomycin Protocol) 1 each AD IV 06/09/24 09:00 06/23/24 08:59 Vasopressin 20 units/Sodium Chloride 100 ml @ 0 mls/hr PROTOCOL IV 06/09/24 07:00 07/09/24 06:59 06/09/24 08:20 9 MLS/HR DIAGNOSTICS / RADIOLOGY: [ ] ASSESSMENT: Acute respiratory failure POA Elevated troponin R/O ACS POA Elevated D-dimer of 3989 Metabolic acidosis POA Acute blood loss anemia POA Acute upper and lower GI bleed, POA Acute thrombocytopenia POA Acute on chronic diastolic CHF POA Hyperglycemia POA Hypomagnesemia POA Cannabis abuse POA Active alcohol drinker POA Suspected urinary tract infection POA Possible bilateral lung pneumonia POA Hypertension POA Suspected GI bleed POA PLAN: Continue ICU admission Appreciate critical Care team, patient currently intubated, on AC mode and on norepinephrine drip Patient will continued to be NPO Patient continue IV antibiotics on vancomycin, cefepime and metronidazole Patient will continue Protonix and Sandostatin drip Continue to monitor electrolytes and replete as necessary Gastroenterology recommended EGD today Appreciate recommendations from Cardiology, elevated troponin is likely in the setting of acute respiratory failure and suspected GI bleed, no plans for invasive cardiac workup at this time. Furosemide adjusted to 40 mg IV q.12 hours We will repeat labs in the morning Case was discussed with Dr. oNrris, above plan was formulated Critical care time: Spent 35 minutes of critical care time with the patient. Reviewed the lab work, reconciled and updated patient's medications, and coordinated plan of care in ICU. Code Status: DNR Disposition: TBD Prognosis: Guarded NEURO: Minimize central acting medications as possible. Fall Precautions. Well lighted room through the day and minimize interruptions through the night to prevent acute delirium. PULMONARY: Supplemental 02 as needed BiPAP as necessary, for respiratory distress Titrate Fio2 to keep Spo2 > or = 90% DuoNebs and CPT as needed IS hourly while awake for pulmonary hygiene Out of bed to chair as tolerated VAP Bundle Maintain aspiration precautions at all times CARDIOVASCULAR: Follow hemodynamics. Vital signs per facility protocol GI & NUTRITION: Continue nutritional support Aspirations precautions Prokinetic agents and laxatives as needed KIDNEYS & ELECTROLYTES: Strict monitoring of intake and output Daily weights Avoid nephrotoxic agents Monitor electrolytes and replace as needed Goal urine output of 30mL/hr or 0.5mL/kg/hr Medications to be dosed according to renal function. Avoid contrast if possible ENDOCRINE: Maintain blood glucose between 100-180 at all times. Insulin sliding scale for blood glucose management Hypoglycemia and hyperglycemia protocol in place INFECTIOUS DISEASE: Trend temperature, WBC and procalcitonin level Follow cultures, deescalate antibiotics as soon as possible. Panculture if new onset fever HEMATOLOGY & COAGULATION: Monitor H&H. Keep Hgb > 7 Transfuse 1 unit of PRBC for Hgb < 7 Transfuse 1 pack of platelets of platelets < 20, 000 Watch for any signs and symptoms of bleeding SKIN: Pressure ulcer prevention per facility protocol Specialty mattress as needed ] ATTESTATION BY PHYSICIAN I have seen and examined the patient. I reviewed the documentation, medical decision making, and treatment plan as noted by the mid-level provider above. I agree with the findings and plan of care. LAUREN NORRIS MD, [facility] Jun 12, 2024 10:42
--- NOTE | 2024-06-12 10:53 | PN ---
[facility] PROGRESS NOTE Date Patient Seen: Jun 12, 2024 Time of Visit: 10:52 Supervising Physician: Abhi bell MD Primary Care Physician: Self Referral, Outpatient Specialists: Inpatient Consults: Dr Mena. 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 He has less pressor support only on Levophed today at 0.4 micrograms/kilogram per minute. He is still crit ically ill. Current vital signs and blood pressure 128/72 respiratory rate of 24 saturating 95% with FiO2 of 70%, heart rate 96 beats per minute, he developed a fever yesterday of 101.1 in the last 24 hours. He continues antibiotics with vanco cefepime and Flagyl. Sister is at the bedside who answered a few questions in regards to his medical history. She reports she has not been very informed of patient for the last three years but she reports patient has been told he has liver cirrhosis at least three years ago. He was told that if he did in quit drinking that he could within the next year. She also reports patient has heart problems and at one point he was placed on a LifeVest for heart failure. Urine output 2.3 L with a balance of-483 mL. On laboratory WBCs are 11.2 H&H is 10.1/29.7 seemed to be stable. Platelet count 59 K decreased from yesterday which was 91 K. Latest ABG with a pH of 7.35 pCO2 of 33 PO2 of 251 and bicarb of 17.9 base excess-6.7 improvement from yesterday. Ventilator Settings Adjusted To Assist Control Volume Control Tidal Volume Of 425 Respiratory Rate Of 24 Fio2 Of 70% And Peep Of 5. 2D echo shows EF of 40% with grade 1 diastolic dysfunction. Venous ultrasound with normal bilateral lower extremity venous Doppler. Ultrasound of the abdomen with moderate to marked hepatic steatosis, the liver is enlarged at 17 cm., ascites otherwise unremarkable exam including no abnormal per has been. Patient has a MELD score of 19 point which is 19.6% of estimated 3month mortality. EGD for today has been canceled per GI due to pt still on pressor support. Pt's sister was at the bedside and has requested for pt code status to be changed to DNR. 06/11/24: Patient continues critically ill currently on Levophed at 0.04 micrograms/kilogram per minute, fentanyl 125 micrograms/hour, Versed weaning at 4 milligrams/hour. He continues on Sandostatin drip and Protonix drip. We will switch to Protonix 40 ivp BID for now. Patient has been afebrile heart rate in the 80s hemodynamically improving blood pressure 108/68 with a map of 81 respiratory rate adjusted to 18 saturating 97% with a FiO2 45% on the vent, current settings of assist control volume control tidal volume of 425 respiratory rate of 18 FiO2 of 45 and PEEP of five. Prior ABGs showed a pH of 7.51, pCO2 of 31 PO2 of 140 and bicarb of 24.2. Chest x-ray shows pulmonary pattern has been for no worrisome interval changes have taken place. Stable exam. ET tube 6.5 cm from the louis communicated with respiratory for insertion in 1.5 cm. We will continue to wean off sedation to assess mental status. once pt breathing over the vent we may start SBT. 06/12/24-patient assessed in room 206 ICU. As per RN no major overnight events. Has been off sedation since seven in the morning fentanyl and Versed has been turned off. We will assess respiratory status due to right now patient is still breathing on the vent and once he breathe over the vent we can start spontaneous breathing trials. Patient continues on low-dose Levophed at 0.04 micrograms/kil ograms per minute attempting to wean off pressors. Hemodynamically stable at this time with blood pressure 107/71 heart rate of 90 respiratory rate of 13 saturating 97% with a FiO2 of 45%. Latest ABGs show pH of 7.42 pCO2 of 38 PO2 of 114 bicarb 24.7 O2 saturation 98.3 weaning on the FiO2. Input was 3.7 L in the last 24 hours with a balance of-2.7 L. he was on Lasix 40 mg IV push q.12 hours we will decreased now to Lasix 20 mg IV push daily which is equivalent to his Lasix 40 mg p.o. home medication. On laboratory WBCs are 10.9 trending down with the improvement H&H is stable 10.1/29.8 with a platelet count of 55 K. chemistries sodium 147 BUN 22 creatinine 1.4 GFR of 59 improving. Glucose of 197 mg/dL total protein 5.9 albumin 2.3. Sister at the bedside. I updated her with today is findings and answered all her questions. Inform her of the plan of care and she verbalized agreement. REVIEW OF SYSTEMS: Unable to perform due to patient's intubated. PHYSICAL EXAM: GENERAL: Intubated and sedated. HEENT: Sclera non icteric, dry mucosa NECK: Supple, no JVD, trachea midline LUNGS: Diminished breath sounds bilaterally. No wheezes HEART: Regular rate and rhythm. Normal S1 and S2, without murmurs ABD: Abdomen soft, nontender. Bowel sounds present EXT: No clubbing cyanosis , swelling to bilateral lower extremities. NEURO: Intubated and sedated. Vital Signs (last 8hr) Date Time Temp Pulse Resp B/P (MAP) Pulse Ox O2 Delivery O2 Flow Rate FiO2 06/12/24 10:42 62 45 06/12/24 09:15 77 18 100/66 (77) 100 45 06/12/24 09:00 76 18 103/64 (77) 100 45 06/12/24 08:45 77 18 106/69 (81) 100 45 06/12/24 08:30 82 18 101/64 (76) 100 45 06/12/24 08:15 68 18 103/63 (76) 100 45 06/12/24 08:00 100 Ventilator+ 45 06/12/24 08:00 98.1 72 18 103/65 (78) 100 45 06/12/24 07:45 67 18 97/59 (72) 100 45 06/12/24 07:30 66 18 101/60 (74) 100 45 06/12/24 07:15 69 18 102/63 (76) 100 45 06/12/24 07:00 68 18 104/66 (79) 100 45 06/12/24 06:51 136/80 06/12/24 06:46 70 18 126/78 (94) 100 06/12/24 06:41 62 45 06/12/24 06:31 77 18 136/80 (98) 100 06/12/24 06:16 62 18 96/56 (69) 100 06/12/24 06:01 69 18 102/63 (76) 99 06/12/24 05:46 70 18 115/67 (83) 100 06/12/24 05:36 76 18 107/65 (79) 100 06/12/24 05:01 72 18 144/82 (102) 99 06/12/24 04:46 68 18 134/83 (100) 99 06/12/24 04:31 71 18 135/80 (98) 98 06/12/24 04:16 73 18 135/81 (99) 97 06/12/24 04:01 71 18 138/85 (102) 98 06/12/24 03:46 73 18 136/78 (97) 98 06/12/24 03:31 98.2 74 18 132/77 (95) 98 06/12/24 03:30 100 Ventilator+ 45 06/12/24 03:16 78 18 127/76 (93) 98 06/12/24 03:01 78 18 136/78 (97) 98 LABS: Hematology Labs: Test 06/12/24 04:26 Range/Units White Blood Count 10.9 H 4.8-10.8 K/uL Red Blood Count 2.78 L 4.50-6.20 MIL/uL Hemoglobin 10.1 L 14.0-18.0 g/dL Hematocrit 29.8 L 42-54 % Mean Corpuscular Volume 107.2 H 79-99 fL Mean Corpuscular Hemoglobin 36.3 H 27.0-33.0 pg Mean Corpuscular Hemoglobin Concent 33.9 32.0-36.0 g/dL Red Cell Distribution Width 12.5 11.0-15.5 % Platelet Count 55 L 130-400 K/uL Mean Platelet Volume 11.5 H 7.5-10.5 fL Nucleated Red Blood Cells 0.0 0.0-0.19 % Chemistry Labs: Test 06/12/24 06:55 06/12/24 04:26 06/11/24 05:18 06/10/24 14:00 Range/Units Whole Blood Glucose 203 H 70-110 MG/DL Sodium Level 146 H 136-145 mmol/L Potassium Level 3.7 3.5-5.1 mmol/L Chloride Level 107 101-111 mmol/L Carbon Dioxide Level 26 21-32 mmol/L Blood Urea Nitrogen 22 H 7-18 mg/dL Creatinine 1.4 H 0.5-1.3 mg/dL Glomerular Filtration Rate Calc 59 >90 mL/min Random Glucose 197 #H 70-105 mg/dL Total Calcium 7.6 L 8.5-10.1 mg/dL Magnesium Level 1.80 1.80-2.40 mg/dL Total Bilirubin 2.5 H 0.2-1.0 mg/dL Aspartate Amino Transf (AST/SGOT) 85 H 10-37 U/L Alanine Aminotransferase (ALT/SGPT) 32 12-78 U/L Alkaline Phosphatase 80 50-136 U/L Total Protein 5.9 L 6.0-8.3 g/dL Albumin 2.3 L 3.5-5.0 g/dL Ammonia 13 11-32 umol/L Whole Blood Ketones Quantitative 3.4 H 0.0-0.6 mmol/L Coagulation Labs: Test 06/10/24 14:00 Range/Units Prothrombin Time 14.1 H 9.6-11.6 SEC Prothromb Time International Ratio 1.29 H 0.85-1.15 Activated Partial Thromboplast Time 34.2 26.3-35.5 SEC DIAGNOSTICS / RADIOLOGY RESULTS: [ ]IMAGING REPORT Signed PATIENT: CHRIS CHOI MR#: [id number] : 1970 SEX: M AGE: 53 LOCATION: 2B ORDER 2300 STATUS: ADM IN REPORT#: [id number] SERVICE 0600 REASON: Intubated ORDERING PHYSICIAN: ROGERS,LARISSA J S[employer]IOR [employer] ADMINISTRATOR PROCEDURE: CXR1VW - CHEST 1VW Exam Type: CHEST 1VW Clinical Information: Intubated Comparison: None Findings: Pulmonary pattern is as before. No worrisome interval changes have taken place. Impression: Stable exam. DICTATED BY: NOAH MARINELLI MD DATE: 06/12/24818 ELECTRONICALLY SIGNED BY: NOAH MARINELLI MD DATE: 06/12/24822 PLAN Daily sedation vacation. daily SBT's change sedation to Precedex gtt. Change Protonix gtt to IVP BID decrease Lasix to 20mg qd IV will give a 1 x dose 500ml LR challenge due to stil hypotensive requiring Levophed Follow GI recommendations NEURO: Minimize central acting medications as possible. Fall Precautions. Well lighted room through the day and minimize interruptions through the night to prevent acute delirium. Lactulose enema and recheck ammonia in am PULMONARY: Supplemental 02 as needed Titrate Fio2 to keep Spo2 > or = 90% DuoNebs and CPT as needed IS hourly while awake for pulmonary hygiene Out of bed to chair as tolerated VAP Bundle Vent/BIPAP Settings: Assist-control volume control with tidal volume of 425 respiratory rate of 18 FiO2 45% and PEEP of 5. We will be adjusting ventilator accordingly to saturations and ABGs. CARDIOVASCULAR: Follow hemodynamics. Titrate vasopressor to keep MAP >65 or systolic blood pressure >95mmHg Cardiac monitoring Drips:: Levophed weaning Sandostatin change Versed and Fentanyl to precedex gtt per protocol LINES: RT IJ CVC PIV GI & NUTRITION: Continue nutritional support Aspirations precautions Prokinetic agents and laxatives as needed To low intermittent suction Per GI EGD canceled due to pressor support Continue Sandostatin per GI recs KIDNEYS & ELECTROLYTES: Strict monitoring of intake and output Daily weights Avoid nephrotoxic agents Monitor electrolytes and replace as needed Goal urine output of 30mL/hr or 0.5mL/kg/hr Monitor electrolytes and replace accordingly ENDOCRINE: Goal blood glucose between 100-180 at all times. DC IV insulin due to DKA resolved. INFECTIOUS DISEASE: Trend temperature. Salmeron-culture if febrile. Micro: Urine culture no growth Blood cultures no growth Respiratory cultures no growth Antibiotics: Vancomycin Cefepime Flagyl HEMATOLOGY & COAGULATION: Monitor H&H. Keep Hgb > 7 Transfuse 1 unit of PRBC for Hgb < 7 Transfuse 1 pack of platelets of platelets < 20, 000 Watch for any signs and symptoms of bleeding SKIN: Pressure ulcer prevention per facility protocol Rehab: PT/OT Prophylaxis: GI: Protonix drip DVT: SCDs due to GI bleed. Code Status: Full Resuscitation Disposition: ICU Other: Total patient care time exceeds 60 minutes excluding all procedures. Case was discussed and seen with my supervising physician. The above plan was formulated and agreed upon. LARISSA ROGERS Jun 12, 2024 10:52
[2024-06-12] MEDS: ALBUMIN (HUMAN) 25% 100 ML IV SCH (13:30)
[2024-06-13] VITALS (123 sets, daily range): BP systolic 68–160; BP diastolic 38–106; PULSE 72–144; RESP 12–33; TEMP 97.8–98.7; O2SAT 90–100
[2024-06-13 05:46] LABS: HEMATOCRIT 27.3 % (42-54); MEAN CORPUSCULAR HEMOGLOBIN 35.5 pg (27.0-33.0); MEAN CORPUSCULAR HGB CONC 33.3 g/dL (32.0-36.0); MEAN CORPUSCULAR VOLUME 106.6 fL (79-99); NUCLEATED RED BLOOD CELLS 0.2 % (0.0-0.19); RED BLOOD CELL COUNT(AUTO) 2.56 MIL/uL (4.50-6.20); RED CELL DISTRIBUTION WIDTH 12.5 % (11.0-15.5); WHITE BLOOD COUNT (AUTO) 9.1 K/uL (4.8-10.8)
[2024-06-13 06:20] LABS: ALBUMIN 2.5 g/dL (3.5-5.0); BILIRUBIN,TOTAL 1.8 mg/dL (0.2-1.0); CREATININE 1.4 mg/dL (0.5-1.3); MAGNESIUM 1.9 mg/dL (1.80-2.40); POTASSIUM 3.1 mmol/L (3.5-5.1); TOTAL PROTEIN, SERUM 5.6 g/dL (6.0-8.3)
[2024-06-13] MEDS: furoSEMIDE 20MG VIAL IV SCH (07:59)
--- NOTE | 2024-06-13 09:23 | PN ---
[facility] PROGRESS NOTE Date Patient Seen: Jun 13, 2024 Time of Visit: 09:23 Supervising Physician: Abhi An MD Primary Care Physician: Self Referral, Outpatient Specialists: Inpatient Consults: Dr Mena. 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 He has less pressor support only on Levophed today at 0.4 micrograms/kilogram per minute. He is still crit ically ill. Current vital signs and blood pressure 128/72 respiratory rate of 24 saturating 95% with FiO2 of 70%, heart rate 96 beats per minute, he developed a fever yesterday of 101.1 in the last 24 hours. He continues antibiotics with vanco cefepime and Flagyl. Sister is at the bedside who answered a few questions in regards to his medical history. She reports she has not been very informed of patient for the last three years but she reports patient has been told he has liver cirrhosis at least three years ago. He was told that if he did in quit drinking that he could within the next year. She also reports patient has heart problems and at one point he was placed on a LifeVest for heart failure. Urine output 2.3 L with a balance of-483 mL. On laboratory WBCs are 11.2 H&H is 10.1/29.7 seemed to be stable. Platelet count 59 K decreased from yesterday which was 91 K. Latest ABG with a pH of 7.35 pCO2 of 33 PO2 of 251 and bicarb of 17.9 base excess-6.7 improvement from yesterday. Ventilator Settings Adjusted To Assist Control Volume Control Tidal Volume Of 425 Respiratory Rate Of 24 Fio2 Of 70% And Peep Of 5. 2D echo shows EF of 40% with grade 1 diastolic dysfunction. Venous ultrasound with normal bilateral lower extremity venous Doppler. Ultrasound of the abdomen with moderate to marked hepatic steatosis, the liver is enlarged at 17 cm., ascites otherwise unremarkable exam including no abnormal per has been. Patient has a MELD score of 19 point which is 19.6% of estimated 3month mortality. EGD for today has been canceled per GI due to pt still on pressor support. Pt's sister was at the bedside and has requested for pt code status to be changed to DNR. 06/11/24: Patient continues critically ill currently on Levophed at 0.04 micrograms/kilogram per minute, fentanyl 125 micrograms/hour, Versed weaning at 4 milligrams/hour. He continues on Sandostatin drip and Protonix drip. We will switch to Protonix 40 ivp BID for now. Patient has been afebrile heart rate in the 80s hemodynamically improving blood pressure 108/68 with a map of 81 respiratory rate adjusted to 18 saturating 97% with a FiO2 45% on the vent, current settings of assist control volume control tidal volume of 425 respiratory rate of 18 FiO2 of 45 and PEEP of five. Prior ABGs showed a pH of 7.51, pCO2 of 31 PO2 of 140 and bicarb of 24.2. Chest x-ray shows pulmonary pattern has been for no worrisome interval changes have taken place. Stable exam. ET tube 6.5 cm from the louis communicated with respiratory for insertion in 1.5 cm. We will continue to wean off sedation to assess mental status. once pt breathing over the vent we may start SBT. 06/12/24-patient assessed in room 206 ICU. As per RN no major overnight events. Has been off sedation since seven in the morning fentanyl and Versed has been turned off. We will assess respiratory status due to right now patient is still breathing on the vent and once he breathe over the vent we can start spontaneous breathing trials. Patient continues on low-dose Levophed at 0.04 micrograms/kil ograms per minute attempting to wean off pressors. Hemodynamically stable at this time with blood pressure 107/71 heart rate of 90 respiratory rate of 13 saturating 97% with a FiO2 of 45%. Latest ABGs show pH of 7.42 pCO2 of 38 PO2 of 114 bicarb 24.7 O2 saturation 98.3 weaning on the FiO2. Input was 3.7 L in the last 24 hours with a balance of-2.7 L. he was on Lasix 40 mg IV push q.12 hours we will decreased now to Lasix 20 mg IV push daily which is equivalent to his Lasix 40 mg p.o. home medication. On laboratory WBCs are 10.9 trending down with the improvement H&H is stable 10.1/29.8 with a platelet count of 55 K. chemistries sodium 147 BUN 22 creatinine 1.4 GFR of 59 improving. Glucose of 197 mg/dL total protein 5.9 albumin 2.3. Sister at the bedside. I updated her with today is findings and answered all her questions. Inform her of the plan of care and she verbalized agreement. 06/16/24-patient assessed in room 206 in the ICU. This morning he is off pressors hemodynamically stable blood pressure 105/71 with a heart rate of 100 saturating 94% with a FiO2 of 45% on the vent breathing slightly over the vent at 18 with a rate on the vent of 14 and has been afebrile. Patient tolerated CPAP trials yesterday. Patient with minor movements and grimacing to face not fully awake and following commands. He has been off sedation x2 days. We will order CT head and brain without contrast to rule CVA. Urine output 2.7 L with a balance of -1.9. On laboratory WBCs are 9.1 H&H is 9.1/27.3 platelet count is 59 K. patient has been NPO due to GI bleed and we will start LR at a low-rate of 50 mL/hour. Patient may be encephalopathic from hypernatremia sodium of 153. Potassium of 3.1 chloride 113 carbon dioxide 30 BUN of 34 creatinine of 1.4 and GFR 59. Glucose of 212 mg/dL adjusted insulin sliding scale to #2 for hyperglycemia. Otherwise chest x-ray shows stable exam no worrisome interval changes. ET tube readjusted inserted 1.5 cm in per RT. We will follow GI recommendations in regards to a possible endoscopies since patient is off pressors and hemodynamically stable. CT of the head and brain without contrast ordered and is pending to be resulted. REVIEW OF SYSTEMS: Unable to perform due to patient's intubated. PHYSICAL EXAM: GENERAL: Intubated off sedation GCS 6T HEENT: Sclera non icteric, dry mucosa NECK: Supple, no JVD, trachea midline LUNGS: Diminished breath sounds bilaterally. No wheezes HEART: Regular rate and rhythm. Normal S1 and S2, without murmurs ABD: Abdomen soft, nontender. Bowel sounds present EXT: No clubbing cyanosis , swelling to bilateral lower extremities. NEURO: Intubated off sedation GCS 6T Vital Signs (last 8hr) Date Time Temp Pulse Resp B/P (MAP) Pulse Ox O2 Delivery O2 Flow Rate FiO2 06/13/24 09:13 100 06/13/24 06:31 87 45 06/13/24 06:30 89 19 100/60 (73) 96 06/13/24 06:15 88 15 100/61 (74) 96 06/13/24 06:00 88 19 103/61 (75) 96 06/13/24 05:45 90 18 102/62 (75) 97 06/13/24 05:30 97 15 112/71 (85) 97 06/13/24 05:15 105 22 121/71 (88) 96 06/13/24 05:00 89 17 104/65 (78) 95 06/13/24 04:45 88 20 104/66 (79) 95 06/13/24 04:30 90 20 104/65 (78) 94 06/13/24 04:01 94 18 103/66 (78) 95 06/13/24 04:00 98.8 95 21 114/67 (83) 95 06/13/24 04:00 98 Ventilator+ 45 06/13/24 03:45 108 20 113/66 (82) 95 06/13/24 03:30 107 17 111/63 (79) 96 06/13/24 03:15 101 16 107/64 (78) 95 06/13/24 03:00 100 17 108/62 (77) 94 06/13/24 02:45 103 19 104/57 (73) 94 06/13/24 02:31 95 45 06/13/24 02:30 100 16 108/64 (79) 95 06/13/24 02:15 100 15 112/67 (82) 98 06/13/24 02:00 101 16 110/64 (79) 99 06/13/24 01:45 95 16 109/63 (78) 98 06/13/24 01:30 92 17 106/64 (78) 98 LABS: Hematology Labs: Test 06/13/24 05:25 Range/Units White Blood Count 9.1 4.8-10.8 K/uL Red Blood Count 2.56 L 4.50-6.20 MIL/uL Hemoglobin 9.1 L 14.0-18.0 g/dL Hematocrit 27.3 L 42-54 % Mean Corpuscular Volume 106.6 H 79-99 fL Mean Corpuscular Hemoglobin 35.5 H 27.0-33.0 pg Mean Corpuscular Hemoglobin Concent 33.3 32.0-36.0 g/dL Red Cell Distribution Width 12.5 11.0-15.5 % Platelet Count 59 L 130-400 K/uL Mean Platelet Volume 12.6 H 7.5-10.5 fL Nucleated Red Blood Cells 0.2 H 0.0-0.19 % Chemistry Labs: Test 06/13/24 05:25 06/12/24 23:05 Range/Units Sodium Level 153 H 136-145 mmol/L Potassium Level 3.1 L 3.5-5.1 mmol/L Chloride Level 113 H 101-111 mmol/L Carbon Dioxide Level 30 21-32 mmol/L Blood Urea Nitrogen 34 H 7-18 mg/dL Creatinine 1.4 H 0.5-1.3 mg/dL Glomerular Filtration Rate Calc 59 >90 mL/min Random Glucose 212 H 70-105 mg/dL Total Calcium 7.3 L 8.5-10.1 mg/dL Magnesium Level 1.90 1.80-2.40 mg/dL Total Bilirubin 1.8 H 0.2-1.0 mg/dL Aspartate Amino Transf (AST/SGOT) 43 H 10-37 U/L Alanine Aminotransferase (ALT/SGPT) 20 12-78 U/L Alkaline Phosphatase 71 50-136 U/L Total Protein 5.6 L 6.0-8.3 g/dL Albumin 2.5 L 3.5-5.0 g/dL Whole Blood Glucose 191 H 70-110 MG/DL DIAGNOSTICS / RADIOLOGY RESULTS: IMAGING REPORT Signed PATIENT: CHRIS CHOI MR#: [id number] : 1970 SEX: M AGE: 53 LOCATION: 2BH ORDER 2300 STATUS: ADM IN REPORT#: [id number] SERVICE 0600 REASON: Intubated ORDERING PHYSICIAN: LARISSA ROGERS PROCEDURE: CXR1VW - CHEST 1VW Exam Type: CHEST 1VW Clinical Information: Intubated Comparison: None Findings: Pulmonary pattern is as before. No worrisome interval changes have taken place. Impression: Stable exam. DICTATED BY: NOAH MARINELLI MD DATE: 06/13/24 101 ELECTRONICALLY SIGNED BY: NOAH MARINELLI MD DATE: 06/13/24 101 PLAN Daily sedation vacation. daily SBT's CT head and brain without contrast Precedex only if absolutely needed. Change Protonix gtt to IVP BID LR at 50 mL/hour for light hydration due to NPO status. Follow GI recommendations: Endoscopy? NEURO: Minimize central acting medications as possible. Fall Precautions. Well lighted room through the day and minimize interruptions through the night to prevent acute delirium. Lactulose enema and recheck ammonia in am PULMONARY: Supplemental 02 as needed Titrate Fio2 to keep Spo2 > or = 90% DuoNebs and CPT as needed IS hourly while awake for pulmonary hygiene Out of bed to chair as tolerated VAP Bundle Vent/BIPAP Settings: Assist-control volume control with tidal volume of 425 respiratory rate of 14 FiO2 45% and PEEP of 5. Daily SBTs. CARDIOVASCULAR: Follow hemodynamics. Titrate vasopressor to keep MAP >65 or systolic blood pressure >95mmHg Cardiac monitoring Drips:: Sandostatin LINES: RT IJ CVC PIV GI & NUTRITION: Continue nutritional support Aspirations precautions Prokinetic agents and laxatives as needed To low intermittent suction Per GI EGD canceled due to pressor support Continue Sandostatin per GI recs KIDNEYS & ELECTROLYTES: Strict monitoring of intake and output Daily weights Avoid nephrotoxic agents Monitor electrolytes and replace as needed Goal urine output of 30mL/hr or 0.5mL/kg/hr Monitor electrolytes and replace accordingly ENDOCRINE: Goal blood glucose between 100-180 at all times. DC IV insulin due to DKA resolved. INFECTIOUS DISEASE: Trend temperature. Salmeron-culture if febrile. Micro: Urine culture no growth Blood cultures no growth Respiratory cultures no growth Antibiotics: Vancomycin Cefepime Flagyl HEMATOLOGY & COAGULATION: Monitor H&H. Keep Hgb > 7 Transfuse 1 unit of PRBC for Hgb < 7 Transfuse 1 pack of platelets of platelets < 20, 000 Watch for any signs and symptoms of bleeding SKIN: Pressure ulcer prevention per facility protocol Rehab: PT/OT Prophylaxis: GI: Protonix IV 40mg BID DVT: SCDs due to GI bleed. Code Status: Full Resuscitation Disposition: ICU Other: Total patient care time exceeds 50 minutes excluding all procedures. Case was discussed and seen with my supervising physician. The above plan was formulated and agreed upon. LARISSA ROGERS Jun 13, 2024 09:23
--- NOTE | 2024-06-13 10:19 | HMCIMG ---
Exam Type: CHEST 1VW Clinical Information: Intubated Comparison: None Findings: Pulmonary pattern is as before. No worrisome interval changes have taken place. Impression: Stable exam.
--- NOTE | 2024-06-13 10:35 | NUR ---
0935-NOTIFIED HEMAL HOROWITZ UPDATE WITH PT, INTUBATED, STILL WITH COFFEE GROUND RESIDUALS, OFF PRESSORS, PENDING EGD. PER FACING BASTER SHE WILL LET MD KNOW AND NOTIFY. 1035- PER HEMAL GONZALEZ PT OK FOR EGD WITH TODAY AROUND NOON TIME. GI LAB AWARE OF CASE. CONSENT OBTAINED BY SISTER NEEL AT BEDSIDE. AWARE OF BENEFITS AND RISKS OF PROCEDURE, VERBALIZED UNDERSTANDING.
[2024-06-13] MEDS: LACTATED RINGERS 1000ML 1,000 ML IV SCH (11:18)
[2024-06-13] MEDS: INSULIN humuLIN R 100 UNIT/ML 3ML SQ SCH (12:00)
[2024-06-13] MEDS: FENTanyl CITRate PF 50 MCG/1 ML 2ML VIAL ONE (12:57)
[2024-06-13] MEDS: MIDAZOLAM HCL 1 MG/ML 2ML VIAL ONE (12:57)
--- NOTE | 2024-06-13 13:00 | NUR ---
PT WAS ABLE TO TOLERATE CPAP MODE FROM 4403-1831. WAS PLACED ON AC MODE FOR EGD AT BEDSIDE.
--- NOTE | 2024-06-13 13:39 | PN ---
This is a 53-year-old male past medical history of hypertension and CHF who was brought by EMS to the ED for complaints of persistent nausea,vomiting and shortness of breath and symptoms have been ongoing for 3 days and patient reports he has nopt been able to take his medication due to above reasons. Patient was intubated sedated. This patient is off sedation but not is waking up. Patient was evaluated by GI and there is plan for EGD to be done today. PHYSICAL EXAM GENERAL APPEARANCE: The patient is awake, alert, and oriented, in no acute cardiopulmonary distress. NEUROLOGICAL: Cranial nerves II-XII grossly intact. Motor is 5/5 in bilateral upper and lower extremities proximal to distal. No sensory deficits. HEENT: Face is symmetric. Pupils are equal and reactive. Extraocular movements are intact. NECK: Supple. No JVD. No thyromegaly. No submental, submandibular, pre- /postauricular, occipital or supraclavicular lymphadenopathy. CHEST: Normal chest expansion. No Telemetry. LUNGS: Decreased bilateral breath sounds on the lower bases per auscultation CARDIOVASCULAR: Tachycardic Regular. S1 and S2 normal. No appreciable rubs, murmurs or gallops. ABDOMEN: Soft, nontender, and nondistended. There is no rebound, voluntary guarding, or rigidity. : Deferred. Gomez. EXTREMITIES: Non-edematous and not cyanotic. No clubbing. Good capillary refill. SKIN: No skin breakdown. Assessment 1. Thrombocytopenia 2. AnemiaPatient was intubated sedated. This patient is off sedation but not is waking up. Patient was evaluated by GI and there is plan for colonoscopy and EGD to be done today. 3. Respiratory failure with the patient is intubated. Patient is off sedation 4. Alcohol abuse 5. Drug abuse 6. Hypertension 7. Suspected GI bleeding Plan 1. Peripheral blood smear showed red blood cells to be Microcytic hypochromic red blood cell consistent with iron deficiency anemia.. There was no fragment cell or schistocyte. There is no teardrop cell. There is no rouleaux phenomena. There is no pelger-Huet cell. White blood cell with no blasts. Platelet count is decreased. There is large platelet consistent with peripheral consumption of the platelet most likely due to cirrhosis of the liver and splenomegaly. 2. There was hypersegmented neutrophils. This patient to be started on folic acid 1 mg p.o. daily and vitamin B12 1000 mcg p.o. daily. 3. Patient with iron deficiency anemia. Patient is going to have EGD to be done today. Will follow-up with the result closely. 4. No need for platelet transfusion at this time 5. This patient prognosis poor with the patient have multiple comorbidity. 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 6. There is no need for anticoagulation in this patient especially his bleeding. 7. TContinue IV iron daily while in the hospital. Vitals/Labs Vital Signs Date Time Temp Pulse Resp B/P (MAP) Pulse Ox O2 Delivery O2 Flow Rate FiO2 06/13/24 13:14 100 06/13/24 12:31 100 19 124/80 (95) 98 06/13/24 11:46 98.4 06/13/24 11:39 Ventilator+ Laboratory Tests 06/13/24 05:25 Medications Current Medications Furosemide 40 mg ONCE ONCE IV Last administered on 06/09/24at 00:55; Start 06/09/24 at 00:30; Stop 06/09/24 at 00:31; Status DC Magnesium Sulfate 50 ml @ As Directed STK-MED ONCE IV; Start 06/09/24 at 00:24; Stop 06/09/24 at 00:29; Status DC Diazepam 5 mg ONCE ONCE IVP Last administered on 06/09/24at 00:58; Start 06/09/24 at 00:30; Stop 06/09/24 at 00:36; Status DC Sodium Bicarbonate 150 meq/Dextrose 1,150 ml @ 150 mls/hr Q7H40M IVP Last administered on 06/09/24at 01:18; Start 06/09/24 at 00:30; Stop 06/09/24 at 18:11; Status DC Sodium Bicarbonate 50 meq ONCE ONCE IV Last administered on 06/09/24at 00:56; Start 06/09/24 at 00:30; Stop 06/09/24 at 00:36; Status DC Sodium Bicarbonate 0 ml @ As Directed STK-MED ONCE .ROUTE; Start 06/09/24 at 00:35; Stop 06/09/24 at 00:36; Status DC Diazepam 10 mg STK-MED ONCE .ROUTE; Start 06/09/24 at 00:36; Stop 06/09/24 at 00:37; Status DC Magnesium Sulfate 50 ml @ 0 mls/hr PROTOCOL PRN IV Last administered on 06/09/24at 01:03; Start 06/09/24 at 01:00; Stop 06/09/24 at 06:50; Status DC Heparin Sodium/ Dextrose 250 ml @ 0 mls/hr PROTOCOL IV Last administered on 06/09/24at 03:31; Start 06/09/24 at 03:30; Stop 06/09/24 at 09:45; Status DC Heparin Sodium (Porcine) 5,000 unit ONCE ONCE IV Last administered on 06/09/24at 03:27; Start 06/09/24 at 03:30; Stop 06/09/24 at 03:31; Status DC Pantoprazole Sodium 80 mg/ Sodium Chloride 100 ml @ 10 mls/hr Q10H IVP Last administered on 06/11/24at 08:04; Start 06/09/24 at 04:00; Stop 06/11/24 at 13:24; Status DC Pantoprazole Sodium 40 mg ONCE ONCE IVP Last administered on 06/09/24at 04:26; Start 06/09/24 at 04:00; Stop 06/09/24 at 04:01; Status DC Octreotide Acetate 500 mcg/ Sodium Chloride 100 ml @ 0 mls/hr PROTOCOL IV Last administered on 06/09/24at 05:50; Start 06/09/24 at 04:30; Stop 06/09/24 at 08:13; Status DC Octreotide Acetate 50 mcg ONCE ONCE IV Last administered on 06/09/24at 04:26; Start 06/09/24 at 04:30; Stop 06/09/24 at 04:31; Status DC Sodium Chloride 1,000 ml @ 500 mls/hr Q2H ONCE IV Last administered on 06/09/24at 05:03; Start 06/09/24 at 05:00; Stop 06/09/24 at 06:59; Status DC Sodium Chloride 1,000 ml @ As Directed STK-MED ONCE IV; Start 06/09/24 at 05:00; Stop 06/09/24 at 05:00; Status DC Fentanyl Citrate 100 ml @ As Directed STK-MED ONCE IV; Start 06/09/24 at 06:05; Stop 06/09/24 at 06:05; Status DC Ketamine HCl 50 mg STK-MED ONCE .ROUTE; Start 06/09/24 at 06:06; Stop 06/09/24 at 06:06; Status DC Midazolam HCl 100 ml ONCE ONCE IV Last administered on 06/09/24at 08:17; Start 06/09/24 at 06:30; Stop 06/09/24 at 06:59; Status DC Fentanyl Citrate 100 ml @ 2.5 mls/hr PROTOCOL IV Last administered on 06/11/24at 21:06; Start 06/09/24 at 06:30; Stop 06/12/24 at 13:28; Status DC Ketamine HCl 100 mg ONCE ONCE IM; Start 06/09/24 at 06:30; Stop 06/09/24 at 06:31; Status DC Pharmacy Profile Note 1 each ONCE ONCE MISC; Start 06/09/24 at 06:30; Stop 06/09/24 at 07:00; Status DC Rocuronium Mason 50 mg STK-MED ONCE .ROUTE; Start 06/09/24 at 06:06; Stop 06/09/24 at 06:06; Status DC Norepinephrine 250 ml @ As Directed STK-MED ONCE IV; Start 06/09/24 at 06:16; Stop 06/09/24 at 06:16; Status DC Levofloxacin/ Dextrose 750 mg Q24H IV; Start 06/09/24 at 06:30; Stop 06/09/24 at 08:29; Status DC Potassium Chloride 100 ml @ 50 mls/hr AD PRN IV; Start 06/09/24 at 07:00; Stop 06/09/24 at 08:34; Status DC Magnesium Sulfate 50 ml @ 0 mls/hr PROTOCOL PRN IV; Start 06/09/24 at 07:00; Stop 06/09/24 at 08:35; Status DC Phenylephrine HCl 10 mg/Sodium Chloride 250 ml @ 0 mls/hr PROTOCOL PRN IV Last administered on 06/09/24at 09:27; Start 06/09/24 at 07:00; Stop 07/09/24 at 06:59 Vasopressin 20 units STK-MED ONCE .ROUTE; Start 06/09/24 at 06:42; Stop 06/09/24 at 06:42; Status DC Vasopressin 20 units/Sodium Chloride 100 ml @ 0 mls/hr PROTOCOL IV Last administered on 06/09/24at 08:20; Start 06/09/24 at 07:00; Stop 07/09/24 at 06:59 Furosemide 20 mg Q12H IV; Start 06/09/24 at 12:00; Stop 06/09/24 at 11:26; Status DC Octreotide Acetate 1250 mcg/ Sodium Chloride 250 ml @ 0 mls/hr PROTOCOL IV Last administered on 06/11/24at 13:17; Start 06/09/24 at 08:30; Stop 07/09/24 at 08:29 Potassium Chloride 100 ml @ 100 mls/hr AD PRN IV; Start 06/09/24 at 08:30; Stop 06/09/24 at 08:41; Status DC Potassium Chloride 20 meq AD PRN PO; Start 06/09/24 at 08:30; Stop 07/09/24 at 08:29 Potassium Chloride 20 meq AD PRN PO; Start 06/09/24 at 08:30; Stop 07/09/24 at 08:29 Potassium Chloride 100 ml @ 50 mls/hr AD PRN IV Last administered on 06/13/24at 12:02; Start 06/09/24 at 08:30; Stop 07/09/24 at 08:29 Magnesium Sulfate 50 ml @ 0 mls/hr PROTOCOL PRN IV; Start 06/09/24 at 08:30; Stop 06/09/24 at 09:46; Status DC Vancomycin HCl 1 each AD IV; Start 06/09/24 at 09:00; Stop 06/23/24 at 08:59 Cefepime HCl 2 gm Q8H IVPB Last administered on 06/10/24at 16:44; Start 06/09/24 at 09:00; Stop 06/10/24 at 19:49; Status DC Metronidazole/ Sodium Chloride 100 ml @ 100 mls/hr Q8H6 IVPB Last administered on 06/13/24at 05:06; Start 06/09/24 at 14:00; Stop 06/19/24 at 13:59 Chlorhexidine Gluconate 15 ml Q8H MM Last administered on 06/13/24at 07:59; Start 06/09/24 at 09:00; Stop 06/23/24 at 08:59 Artificial Tears 1 DROP OR AD Q8H OU Last administered on 06/13/24at 08:00; Start 06/09/24 at 09:00; Stop 07/09/24 at 08:59 Vancomycin HCl 250 ml @ 125 mls/hr ONCE ONCE IV Last administered on 06/09/24at 11:19; Start 06/09/24 at 09:00; Stop 06/09/24 at 10:59; Status DC Vancomycin HCl 250 ml @ 125 mls/hr Q12H IV Last administered on 06/10/24at 10:06; Start 06/09/24 at 22:00; Stop 06/10/24 at 21:50; Status DC Sodium Bicarbonate 50 ml @ As Directed STK-MED ONCE .ROUTE; Start 06/09/24 at 09:40; Stop 06/09/24 at 09:40; Status DC Sodium Bicarbonate 100 meq ONCE ONCE IV; Start 06/09/24 at 10:00; Stop 06/09/24 at 09:45; Status DC Potassium Chloride 20 meq ONCE ONCE PO; Start 06/09/24 at 10:00; Stop 06/09/24 at 10:01; Status DC Sodium Chloride 1,000 ml @ 200 mls/hr PROTOCOL IV; Start 06/09/24 at 10:00; Stop 06/11/24 at 13:29; Status DC Potassium Chloride/Dextrose/ Sod Cl 1,000 ml @ 0 mls/hr AD IV; Start 06/09/24 at 10:00; Stop 06/11/24 at 13:29; Status DC Potassium Chloride 20 meq/ Sodium Chloride 1,010 ml @ 0 mls/hr PROTOCOL IV; Start 06/09/24 at 10:00; Stop 06/11/24 at 13:29; Status DC Magnesium Sulfate 50 ml @ 0 mls/hr PROTOCOL IV Last administered on 06/11/24at 07:13; Start 06/09/24 at 10:00; Stop 06/11/24 at 13:29; Status DC Insulin Human Regular 100 unit/ Sodium Chloride 101 ml @ 0 mls/hr PROTOCOL IV Last administered on 06/09/24at 11:41; Start 06/09/24 at 10:00; Stop 06/11/24 at 13:29; Status DC Dextrose/Sodium Chloride 1,000 ml @ 0 mls/hr AD IV; Start 06/09/24 at 10:00; Stop 06/11/24 at 13:29; Status DC Sodium Bicarbonate 50 meq ONCE ONCE IV Last administered on 06/09/24at 11:20; Start 06/09/24 at 10:00; Stop 06/09/24 at 10:01; Status DC Furosemide 20 mg Q6H6 IV Last administered on 06/12/24at 06:46; Start 06/09/24 at 12:00; Stop 06/12/24 at 07:38; Status DC Norepinephrine 250 ml @ As Directed STK-MED ONCE IV; Start 06/09/24 at 12:03; Stop 06/09/24 at 12:04; Status DC Norepinephrine Bitartrate HIGH ALERT Init... PROTOCOL IV Last administered on 06/12/24at 06:51; Start 06/09/24 at 12:30; Stop 07/09/24 at 12:29 Pantoprazole Sodium 40 mg STK-MED ONCE .ROUTE; Start 06/09/24 at 12:19; Stop 06/09/24 at 12:19; Status DC Iohexol 75 ml STK-MED ONCE IV; Start 06/09/24 at 13:45; Stop 06/09/24 at 13:49; Status DC Midazolam HCl 100 ml PROTOCOL IV Last administered on 06/11/24at 08:05; Start 06/09/24 at 15:30; Stop 06/12/24 at 10:33; Status DC Lorazepam 2 mg Q4H PRN IVP; Start 06/09/24 at 18:00; Stop 06/16/24 at 17:59 Lorazepam 4 mg Q2H PRN IVP; Start 06/09/24 at 18:00; Stop 06/16/24 at 17:59 Ondansetron HCl 4 mg Q4H PRN IV; Start 06/09/24 at 18:00; Stop 07/09/24 at 17:59 Acetaminophen 500 mg Q6H PRN PO Last administered on 06/09/24at 23:54; Start 06/09/24 at 18:00; Stop 07/09/24 at 17:59 Multivitamins Therapeutic 1 tab DAILY PO Last administered on 06/13/24at 07:59; Start 06/10/24 at 09:00; Stop 07/10/24 at 08:59 Pharmacy Profile Note 1 each PROTOCOL PRN MISC; Start 06/09/24 at 18:00; Stop 06/16/24 at 17:59 Thiamine HCl 300 mg DAILY IV Last administered on 06/13/24at 07:59; Start 06/09/24 at 18:00; Stop 07/09/24 at 17:59 Folic Acid 1 mg DAILY IV Last administered on 06/13/24at 09:20; Start 06/09/24 at 18:00; Stop 07/09/24 at 17:59 Lactated Ringer's 500 ml BOLUS ONCE IV; Start 06/10/24 at 03:30; Stop 06/10/24 at 03:50; Status DC Lactulose 200 gm ONCE ONCE KS Last administered on 06/10/24at 11:11; Start 06/10/24 at 10:00; Stop 06/10/24 at 10:01; Status DC Cefepime HCl 2 gm Q12H IVPB Last administered on 06/13/24at 04:12; Start 06/11/24 at 05:00; Stop 06/19/24 at 08:59 Vancomycin HCl 250 ml @ 125 mls/hr Q24H IV Last administered on 06/11/24at 21:10; Start 06/11/24 at 22:00; Stop 06/12/24 at 21:39; Status DC Insulin Human Regular INSULIN SLIDING SCAL... Q6H6 SQ Last administered on 06/13/24at 06:45; Start 06/11/24 at 12:00; Stop 06/13/24 at 11:22; Status DC Midodrine 10 mg TID PO Last administered on 06/13/24at 08:00; Start 06/11/24 at 14:00; Stop 07/11/24 at 13:59 Lactulose 20 gm DAILY PO Last administered on 06/13/24at 07:59; Start 06/12/24 at 09:00; Stop 07/12/24 at 08:59 Pantoprazole Sodium 40 mg BID IVP Last administered on 06/13/24at 07:59; Start 06/11/24 at 21:00; Stop 07/11/24 at 20:59 Magnesium Sulfate 50 ml @ 0 mls/hr PROTOCOL PRN IV Last administered on 06/13/24at 08:01; Start 06/11/24 at 15:00; Stop 07/11/24 at 14:59 Dexmedetomidine/ Sodium Chloride 400 mcg PROTOCOL IV; Start 06/11/24 at 20:30; Stop 07/11/24 at 20:29 Furosemide 40 mg Q12H IV Last administered on 06/12/24at 08:16; Start 06/12/24 at 08:00; Stop 06/12/24 at 14:58; Status DC Albumin Human 100 ml @ 50 mls/hr AD IV Last administered on 06/12/24at 13:30; Start 06/12/24 at 11:00; Stop 06/14/24 at 10:59 Furosemide 20 mg DAILY IV Last administered on 06/13/24at 07:59; Start 06/13/24 at 09:00; Stop 06/13/24 at 09:20; Status DC Vancomycin HCl 250 ml @ 125 mls/hr Q24H IV; Start 06/13/24 at 22:00; Stop 06/23/24 at 21:59 Lactated Ringer's 1,000 ml @ 50 mls/hr Q20H IV Last administered on 06/13/24at 11:18; Start 06/13/24 at 09:30; Stop 07/13/24 at 09:29 Insulin Human Regular INSULIN SLIDING SCAL... Q6H6 SQ; Start 06/13/24 at 12:00; Stop 07/13/24 at 11:59 Fentanyl Citrate 100 mcg STK-MED ONCE .ROUTE; Start 06/13/24 at 12:57; Stop 06/13/24 at 12:59; Status DC Midazolam HCl 2 mg STK-MED ONCE .ROUTE; Start 06/13/24 at 12:57; Stop 06/13/24 at 12:59; Status DC ANAMARIA HAWK MD Jun 13, 2024 13:39
--- NOTE | 2024-06-13 13:43 | NUR ---
1314- EGD DONE AT BEDSIDE WITH AND ENDO STAFF. RAMON AT BEDSIDE ASSISTING PROCEDURE. RT REYMUNDO, NOTIFIED TO PLACE PT BACK ON AC MODE. SEDATION PER FENT 50MCG ONCE IVP AND VERSED 2MG IVP ONCE. TIME OUT DONE. 1333- ADDITIONAL FENT 50MCG GIVEN DUE TACHYCARDIA AND HYPERTENSION, NO INTENTIONAL MOVEMENT NOTED BY PT DURING PROCEDURE. MD VERBALIZED OK FOR TUBE FEEDINGS, D/C SANDOSTATIN DRIP, AND CONTINUE ALL MEDICATIONS ORDERED.
--- NOTE | 2024-06-13 14:58 | HMCIMG ---
Exam Type: CT HEAD/BRAIN W/O CONTRAST Clinical Information: ams Comparison: None CT Dose Index (CTDI): 57.33 mGy Dose Length Product (DLP): 956.79 total mGy-cm Findings: The examination shows atrophy. There is low attenuation throughout the periventricular white matter locations, consistent with chronic small vessel ischemic changes. No acute intra- or extra-axial fluid collections are seen. There is no evidence of acute or chronic hemorrhage. There is no mass effect or shift of midline structures. There are no areas to suggest acute infarct. The skull windows show no significant abnormalities. IMPRESSION: 1. ATROPHY AND CHRONIC SMALL VESSEL ISCHEMIC CHANGES. This study was performed using dose reduction techniques to include automated exposure control and/or adjustment of the mA and/or kV according to patient size.
[2024-06-13] MEDS: MIDAZOLAM HCL 1 MG/ML 2ML VIAL IVP ONE (15:01)
[2024-06-13] MEDS: FENTanyl CITRate PF 50 MCG/1 ML 2ML VIAL IVP ONE (15:01)
[2024-06-13 16:02] LABS: MAGNESIUM 2.6 mg/dL (1.80-2.40); POTASSIUM 3.2 mmol/L (3.5-5.1)
[2024-06-13] MEDS: PoTASSium chl 10% ELIXIR 20MEQ 20 MEQ/15 ML UDCUP PO PRN (16:38)
--- NOTE | 2024-06-13 16:40 | PN ---
[facility] CARDIOLOGY PROGRESS NOTE Date Patient Seen: Jun 13, 2024 Time of Visit: 16:36 Interval History: Patient seen in ICU Remains intubated No longer requiring vasopressor support. Physical Examination: GENERAL: [No acute distress.] LUNGS: [rales bilaterally, no distress, intubated] HEART: [Normal rate and rhythm. .] VASC: [Peripheral pulses +2 bilaterally.] SKIN: [warm, dry, distal extremities well perfused NEURO: [intubated. moves spontaneously. does not follow commands. Laboratory: [ ] Hematology Labs: Test 06/13/24 05:25 Range/Units White Blood Count 9.1 4.8-10.8 K/uL Red Blood Count 2.56 L 4.50-6.20 MIL/uL Hemoglobin 9.1 L 14.0-18.0 g/dL Hematocrit 27.3 L 42-54 % Mean Corpuscular Volume 106.6 H 79-99 fL Mean Corpuscular Hemoglobin 35.5 H 27.0-33.0 pg Mean Corpuscular Hemoglobin Concent 33.3 32.0-36.0 g/dL Red Cell Distribution Width 12.5 11.0-15.5 % Platelet Count 59 L 130-400 K/uL Mean Platelet Volume 12.6 H 7.5-10.5 fL Nucleated Red Blood Cells 0.2 H 0.0-0.19 % Chemistry Labs: Test 06/13/24 15:30 06/13/24 11:36 06/13/24 09:40 06/13/24 05:25 Range/Units Potassium Level 3.2 L 3.5-5.1 mmol/L Magnesium Level 2.60 H 1.80-2.40 mg/dL Whole Blood Glucose 185 H 70-110 MG/DL Ammonia 14 11-32 umol/L Sodium Level 153 H 136-145 mmol/L Chloride Level 113 H 101-111 mmol/L Carbon Dioxide Level 30 21-32 mmol/L Blood Urea Nitrogen 34 H 7-18 mg/dL Creatinine 1.4 H 0.5-1.3 mg/dL Glomerular Filtration Rate Calc 59 >90 mL/min Random Glucose 212 H 70-105 mg/dL Total Calcium 7.3 L 8.5-10.1 mg/dL Total Bilirubin 1.8 H 0.2-1.0 mg/dL Aspartate Amino Transf (AST/SGOT) 43 H 10-37 U/L Alanine Aminotransferase (ALT/SGPT) 20 12-78 U/L Alkaline Phosphatase 71 50-136 U/L Total Protein 5.6 L 6.0-8.3 g/dL Albumin 2.5 L 3.5-5.0 g/dL Impression and Plan: [Type II NC Acute on chronic diastolic congestive heart failure HFrEF 40% Acute respiratory failure s/p intubation Pulmonary edema Suspected GI bleed Iron deficiency anemia Neutropenia improved/Thrombocytopenia persists, possible cirrhosis Electrolyte derangement Elevated D-dimer of 3989 HTN Positive for THC Metabolic acidosis POA Hyperglycemia POA Hypomagnesemia POA Active alcohol drinker POA Continue with IV diuresis until extubated and respiratory status stable Hold anticoagulation given thrombocytopenia Not a candidate for CHF GDMT due to hypotension. TOM THOMPSON DO Jun 13, 2024 16:40
[2024-06-13] MEDS: dexmedeTOMIDine 400MCG/NS100ML IV SCH (18:23)
--- NOTE | 2024-06-13 18:40 | NUR ---
1813- PT WAS BEING CLEANED FROM INCONTINENT BM. NOTED TO HAVE SECRETIONS AND APPLIED SUCTION, DEEP AND ORAL. PT HR THEN WENT UP TO 130'S WITH GAGGING. RT CALLED TO PLACE PT BACK TO AC MODE. PT WAS ON CPAP. WINSOMERT PLACED PT BACK ON AC MODE, PRECEDEX STARTED DUE TO HR 150 AND PT O2 AT 89. ONCE STARTED PT SLOWLY CAME BACK DOWN TO HR 90'S AND 02 95% WITH NO GAGGING. PT WAS NOT FOLLOWING COMMANDS PRIOR TO STARTING PRECEDEX. V/S STABLE. WILL CONTINUE TO MONITOR PT. Addendum: 06/13/24 at 1845 by CARLOS ALBERTO BUCKLEY RN RN PT PLACED ON CPAP AROUND 1700 POST EGD.
--- NOTE | 2024-06-13 18:45 | NUR ---
FAMILY AWARE OF PLAN OF CARE.
--- NOTE | 2024-06-13 19:07 | PN ---
[facility] PROGRESS NOTE Date of Service: Jun 13, 2024 Time of Service: 19:[address] Norris SUBJECTIVE: [53-year-old male who was admitted due to persistent nausea vomiting, patient also was noted with metabolic acidosis initially was placed on BiPAP support and patient decompensated immediately and was intubated. He is being managed by critical care team. He continues to be intubated on AC mode. Patient is still on pressor support. Continues with IV antibiotics, was started with furosemide 20 mg IV q.12 hours today. We will continue to monitor closely. Patient is still currently intubated. 06/13/24 Pt was seen by DIFFUSION OPERATOR and physician during rounding in room 206. Family member/sister at the bedside. Pt is s/p EGD today which showed non bleeding ulcers. CT Head/Brain negative. Per GI we can restart tube feedings. Pt off sedation . We will continue monitoring pt. AM labs REVIEW OF SYSTEMS Pt intubated PHYSICAL EXAM GENERAL APPEARANCE: The patient is awake, alert, and oriented, in no acute cardiopulmonary distress. NEUROLOGICAL: Cranial nerves II-XII grossly intact. Motor is 5/5 in bilateral upper and lower extremities proximal to distal. No sensory deficits. HEENT: Face is symmetric. Pupils are equal and reactive. Extraocular movements are intact. NECK: Supple. No JVD. No thyromegaly. No submental, submandibular, pre- /postauricular, occipital or supraclavicular lymphadenopathy. CHEST: Normal chest expansion. No Telemetry. LUNGS: Decreased bilateral breath sounds on the lower bases per auscultation CARDIOVASCULAR: Tachycardic Regular. S1 and S2 normal. No appreciable rubs, murmurs or gallops. ABDOMEN: Soft, nontender, and nondistended. There is no rebound, voluntary guarding, or rigidity. : Deferred. Gomez. EXTREMITIES: Non-edematous and not cyanotic. No clubbing. Good capillary refill. SKIN: No skin breakdown. Vital Signs (last 8hr) Date Time Temp Pulse Resp B/P (MAP) Pulse Ox O2 Delivery O2 Flow Rate FiO2 06/13/24 18:10 45 06/13/24 18:10 144 45 06/13/24 18:01 116 30 127/75 (92) 95 06/13/24 17:46 94 25 129/74 (92) 96 06/13/24 17:31 91 28 129/78 (95) 98 06/13/24 17:16 88 23 126/77 (93) 98 06/13/24 17:01 92 25 121/74 (90) 99 06/13/24 16:46 98.1 89 23 135/83 (100) 98 06/13/24 16:33 88 45 06/13/24 16:31 91 20 130/77 (94) 97 06/13/24 16:16 84 23 129/73 (91) 96 06/13/24 16:01 87 18 122/72 (89) 96 06/13/24 15:54 97 Ventilator+ 45 06/13/24 15:46 85 18 117/71 (86) 95 06/13/24 15:31 88 16 118/75 (89) 95 06/13/24 15:16 90 19 116/69 (85) 95 06/13/24 15:01 98 19 125/75 (92) 95 06/13/24 14:46 99 21 116/73 (87) 93 06/13/24 14:31 95 18 123/79 (94) 94 06/13/24 14:16 90 23 109/72 (84) 92 06/13/24 14:08 91 100 06/13/24 14:07 45 06/13/24 14:01 92 18 116/71 (86) 94 06/13/24 13:34 92 22 124/76 (92) 99 06/13/24 13:31 91 21 121/81 (94) 99 06/13/24 13:28 89 22 117/70 (86) 99 06/13/24 13:25 90 21 116/71 (86) 99 06/13/24 13:22 92 12 133/82 (99) 99 06/13/24 13:19 95 12 134/83 (100) 99 06/13/24 13:16 113 26 152/102 (119) 100 06/13/24 13:14 100 06/13/24 13:13 110 18 146/94 (111) 99 06/13/24 13:10 116 12 146/100 (115) 99 06/13/24 13:07 119 24 160/102 (121) 99 06/13/24 13:04 113 23 152/106 (121) 100 06/13/24 13:02 129 17 139/99 (112) 100 06/13/24 13:00 102 22 134/82 (99) 98 06/13/24 12:56 102 22 129/76 (93) 99 06/13/24 12:51 98 17 122/77 (92) 98 06/13/24 12:46 97 17 135/87 (103) 98 06/13/24 12:31 100 19 124/80 (95) 98 06/13/24 12:16 99 17 128/79 (95) 98 06/13/24 12:02 93 45 06/13/24 12:01 98 21 125/76 (92) 97 06/13/24 12:00 45 06/13/24 11:46 98.4 95 16 126/79 (95) 97 06/13/24 11:39 97 Ventilator+ 45 06/13/24 11:31 97 18 114/71 (85) 96 06/13/24 11:16 87 16 108/69 (82) 96 06/13/24 11:01 92 21 109/67 (81) 96 LABS: Laboratory: Test 06/13/24 17:05 06/13/24 15:30 06/13/24 09:40 06/13/24 05:25 Range/Units Whole Blood Glucose 208 H 70-110 MG/DL Potassium Level 3.2 L 3.5-5.1 mmol/L Magnesium Level 2.60 H 1.80-2.40 mg/dL Ammonia 14 11-32 umol/L White Blood Count 9.1 4.8-10.8 K/uL Red Blood Count 2.56 L 4.50-6.20 MIL/uL Hemoglobin 9.1 L 14.0-18.0 g/dL Hematocrit 27.3 L 42-54 % Mean Corpuscular Volume 106.6 H 79-99 fL Mean Corpuscular Hemoglobin 35.5 H 27.0-33.0 pg Mean Corpuscular Hemoglobin Concent 33.3 32.0-36.0 g/dL Red Cell Distribution Width 12.5 11.0-15.5 % Platelet Count 59 L 130-400 K/uL Mean Platelet Volume 12.6 H 7.5-10.5 fL Nucleated Red Blood Cells 0.2 H 0.0-0.19 % Sodium Level 153 H 136-145 mmol/L Chloride Level 113 H 101-111 mmol/L Carbon Dioxide Level 30 21-32 mmol/L Blood Urea Nitrogen 34 H 7-18 mg/dL Creatinine 1.4 H 0.5-1.3 mg/dL Glomerular Filtration Rate Calc 59 >90 mL/min Random Glucose 212 H 70-105 mg/dL Total Calcium 7.3 L 8.5-10.1 mg/dL Total Bilirubin 1.8 H 0.2-1.0 mg/dL Aspartate Amino Transf (AST/SGOT) 43 H 10-37 U/L Alanine Aminotransferase (ALT/SGPT) 20 12-78 U/L Alkaline Phosphatase 71 50-136 U/L Total Protein 5.6 L 6.0-8.3 g/dL Albumin 2.5 L 3.5-5.0 g/dL Test 06/12/24 21:03 06/12/24 04:13 Range/Units Vancomycin Level Trough 21.0 H 10.0-20.0 UG/ML Blood Gas Specimen Type Arterial Arterial Blood pH 7.427 7.350-7.450 Arterial Blood Partial Pressure CO2 38 35-48 mmHg Arterial Blood Partial Pressure O2 114.5 H 83.0-108.0 mmHg Arterial Blood HCO3 24.7 21.0-28.0 mmol/L Arterial Blood Oxygen Saturation 98.3 H 94.0-98.0 % Arterial Blood Base Excess 0.6 -2.0-3.0 mmol/L Blood Gas Temperature 37.0 35.5-37.0 CELSIUS Blood Gas Respiration Rate 18.0 min. Blood Gas Vent Mode AC VC ROOM AIR FiO2 45.0 % Blood Gas Tidal Volume 425 ml Blood Gas PEEP 5 cm H2O Blood Gas Specimen Comment RN, RR Current Medications Medications (Trade) Dose Ordered Sig/Quan Route PRN Reason Start Time Stop Time Status Last Admin Dose Admin Acetaminophen (TYLenol 500MG TAB) 500 mg Q6H PRN PO TEMP < 101.1 AND/OR HEADACHE 06/09/24 18:00 07/09/24 17:59 06/09/24 23:54 500 MG Albumin Human 100 ml @ 50 mls/hr AD IV 06/12/24 11:00 06/14/24 10:59 06/12/24 13:30 50 MLS/HR Artificial Tears (Artificial Tears) 1 DROP OR AD Q8H OU 06/09/24 09:00 07/09/24 08:59 2/3/25 16:39 1 DROP Cefepime HCl (MAXipime 2 gm vial) 2 gm Q12H IVPB 06/11/24 05:00 06/19/24 08:59 06/13/24 16:39 2 GM Cefepime HCl (MAXipime 2 gm vial) 2 gm Q8H IVPB 06/09/24 09:00 06/10/24 19:49 DC 06/10/24 16:44 2 GM Chlorhexidine Gluconate (Peridex) 15 ml Q8H MM 06/09/24 09:00 06/23/24 08:59 06/13/24 16:39 15 ML Dexmedetomidine/ Sodium Chloride (PRECEdex 400MCG/ 100ML-NS) 400 mcg PROTOCOL IV 06/11/24 20:30 07/11/24 20:29 Hold 06/13/24 18:23 400 MCG Dextrose/Sodium Chloride 1,000 ml @ 0 mls/hr AD IV 06/09/24 10:00 06/11/24 13:29 DC Fentanyl Citrate 100 ml @ 2.5 mls/hr PROTOCOL IV 06/09/24 06:30 06/12/24 13:28 DC 06/11/24 21:06 2.5 MLS/HR Folic Acid (FolVITE 5 MG/ML VIAL) 1 mg DAILY IV 06/09/24 18:00 07/09/24 17:59 06/13/24 09:20 1 MG Furosemide (LASix 20MG VIAL) 20 mg DAILY IV 06/13/24 09:00 06/13/24 09:20 DC 06/13/24 07:59 20 MG Furosemide (LASix 20MG VIAL) 20 mg Q12H IV 06/09/24 12:00 06/09/24 11:26 DC Furosemide (LASix 20MG VIAL) 20 mg Q6H6 IV 06/09/24 12:00 06/12/24 07:38 DC 06/12/24 06:46 20 MG Furosemide (LASix 20MG VIAL) 40 mg Q12H IV 06/12/24 08:00 06/12/24 14:58 DC 06/12/24 08:16 40 MG Heparin Sodium/ Dextrose 250 ml @ 0 mls/hr PROTOCOL IV 06/09/24 03:30 06/09/24 09:45 DC 06/09/24 03:31 10.78 MLS/HR Insulin Human Regular (humuLIN R 100 UNIT/ML 3ML) INSULIN SLIDING SCAL... Q6H6 SQ 06/11/24 12:00 06/13/24 11:22 DC 06/13/24 06:45 6 UNIT Insulin Human Regular (humuLIN R 100 UNIT/ML 3ML) INSULIN SLIDING SCAL... Q6H6 SQ 06/13/24 12:00 07/13/24 11:59 06/13/24 17:59 8 UNIT Insulin Human Regular 100 unit/ Sodium Chloride 101 ml @ 0 mls/hr PROTOCOL IV 06/09/24 10:00 06/11/24 13:29 DC 06/09/24 11:41 1 MLS/HR Lactated Ringer's 1,000 ml @ 50 mls/hr Q20H IV 06/13/24 09:30 06/13/24 14:44 DC 06/13/24 11:18 50 MLS/HR Lactulose (Constulose 20gm/ 30ml Udcup) 20 gm DAILY PO 06/12/24 09:00 07/12/24 08:59 06/13/24 07:59 20 GM Levofloxacin/ Dextrose (LEvaquIN 750 MG/ D5W 150 ML) 750 mg Q24H IV 06/09/24 06:30 06/09/24 08:29 DC Lorazepam (AtiVAN) 2 mg Q4H PRN IVP ALCOHOL WITHDRAWAL PROTOCOL 06/09/24 18:00 06/16/24 17:59 Lorazepam (AtiVAN) 4 mg Q2H PRN IVP ALCOHOL WITHDRAWAL PROTOCOL 06/09/24 18:00 06/16/24 17:59 Magnesium Sulfate 50 ml @ 0 mls/hr PROTOCOL IV 06/09/24 10:00 06/11/24 13:29 DC 06/11/24 07:13 25 MLS/HR Magnesium Sulfate 50 ml @ 0 mls/hr PROTOCOL PRN IV OTHER [SEE ORDER COMMENTS] 06/09/24 01:00 06/09/24 06:50 DC 06/09/24 01:03 25 MLS/HR Magnesium Sulfate 50 ml @ 0 mls/hr PROTOCOL PRN IV OTHER [SEE ORDER COMMENTS] 06/09/24 07:00 06/09/24 08:35 DC Magnesium Sulfate 50 ml @ 0 mls/hr PROTOCOL PRN IV low magnesium 06/09/24 08:30 06/09/24 09:46 DC Magnesium Sulfate 50 ml @ 0 mls/hr PROTOCOL PRN IV MAGNESIUM PROTOCOL 06/11/24 15:00 07/11/24 14:59 06/13/24 08:01 25 MLS/HR Metronidazole/ Sodium Chloride 100 ml @ 100 mls/hr Q8H6 IVPB 06/09/24 14:00 06/19/24 13:59 06/13/24 14:16 100 MLS/HR Midazolam HCl (Midazolam 100mg-0.9% NS 100ml) 100 ml PROTOCOL IV 06/09/24 15:30 06/12/24 10:33 DC 06/11/24 08:05 100 ML Midodrine (PROAMatine 5 MG TABLET) 10 mg TID PO 06/11/24 14:00 07/11/24 13:59 06/13/24 15:00 10 MG Multivitamins Therapeutic (Multivitamin Tablet) 1 tab DAILY PO 06/10/24 09:00 07/10/24 08:59 06/13/24 07:59 1 TAB Norepinephrine Bitartrate (Norepineph 16 Mg/250ml NS Premix) HIGH ALERT Init... PROTOCOL IV 06/09/24 12:30 07/09/24 12:29 06/12/24 06:51 16 MG Octreotide Acetate 1250 mcg/ Sodium Chloride 250 ml @ 0 mls/hr PROTOCOL IV 06/09/24 08:30 06/13/24 13:43 DC 06/11/24 13:17 5 MLS/HR Octreotide Acetate 500 mcg/ Sodium Chloride 100 ml @ 0 mls/hr PROTOCOL IV 06/09/24 04:30 06/09/24 08:13 DC 06/09/24 05:50 5 MLS/HR Ondansetron HCl (zoFRAN 4MG INJ) 4 mg Q4H PRN IV NAUSEA 06/09/24 18:00 07/09/24 17:59 Pantoprazole Sodium (PROTonix 40MG INJ) 40 mg BID IVP 06/11/24 21:00 07/11/24 20:59 06/13/24 07:59 40 MG Pantoprazole Sodium 80 mg/ Sodium Chloride 100 ml @ 10 mls/hr Q10H IVP 06/09/24 04:00 06/11/24 13:24 DC 06/11/24 08:04 10 MLS/HR Pharmacy Profile Note (Pharmacy Communication) 1 each PROTOCOL PRN MISC ETOH Withdrawal Score changes 06/09/24 18:00 06/16/24 17:59 Phenylephrine HCl 10 mg/Sodium Chloride 250 ml @ 0 mls/hr PROTOCOL PRN IV PROTOCOL 06/09/24 07:00 07/09/24 06:59 06/09/24 09:27 96 MLS/HR Potassium Chloride 20 meq/ Sodium Chloride 1,010 ml @ 0 mls/hr PROTOCOL IV 06/09/24 10:00 06/11/24 13:29 DC Potassium Chloride/Dextrose/ Sod Cl 1,000 ml @ 0 mls/hr AD IV 06/09/24 10:00 06/11/24 13:29 DC Potassium Chloride 100 ml @ 50 mls/hr AD PRN IV POTASSIUM PROTOCOL 06/09/24 07:00 06/09/24 08:34 DC Potassium Chloride 100 ml @ 50 mls/hr AD PRN IV POTASSIUM PROTOCOL 06/09/24 08:30 07/09/24 08:29 06/13/24 16:38 50 MLS/HR Potassium Chloride 100 ml @ 100 mls/hr AD PRN IV POTASSIUM PROTOCOL 06/09/24 08:30 06/09/24 08:41 DC Potassium Chloride (K-Dur/Klor-Con 20meq) 20 meq AD PRN PO POTASSIUM PROTOCOL 06/09/24 08:30 07/09/24 08:29 Potassium Chloride (KCl 10% Elixir 20meq/15ml) 20 meq AD PRN PO POTASSIUM PROTOCOL 06/09/24 08:30 07/09/24 08:29 06/13/24 18:15 20 MEQ Sodium Bicarbonate 150 meq/Dextrose 1,150 ml @ 150 mls/hr Q7H40M IVP 06/09/24 00:30 06/09/24 18:11 DC 06/09/24 01:18 150 MLS/HR Sodium Chloride 1,000 ml @ 200 mls/hr PROTOCOL IV 06/09/24 10:00 06/11/24 13:29 DC Thiamine HCl (Vitamin B-1) 300 mg DAILY IV 06/09/24 18:00 07/09/24 17:59 06/13/24 07:59 300 MG Vancomycin HCl 250 ml @ 125 mls/hr Q12H IV 06/09/24 22:00 06/10/24 21:50 DC 06/10/24 10:06 125 MLS/HR Vancomycin HCl 250 ml @ 125 mls/hr Q24H IV 06/11/24 22:00 06/12/24 21:39 DC 06/11/24 21:10 125 MLS/HR Vancomycin HCl 250 ml @ 125 mls/hr Q24H IV 06/13/24 22:00 06/23/24 21:59 Vancomycin HCl (Vancomycin Protocol) 1 each AD IV 06/09/24 09:00 06/23/24 08:59 Vasopressin 20 units/Sodium Chloride 100 ml @ 0 mls/hr PROTOCOL IV 06/09/24 07:00 07/09/24 06:59 06/09/24 08:20 9 MLS/HR DIAGNOSTICS / RADIOLOGY: [ ] ASSESSMENT: Acute respiratory failure POA Septic shock, resolving Bilateral lower lobe bacterial pneumonia, POA Acute hepatic encephalopathy, POA Combined alcoholic and fatty liver cirrhosis, POA MELD Score 19 points (19.6% estimated three month mortality) NSTEMI type 2, 2/2 supply and demand mismatch POA Acute on chronic Stage I Diastolic Heart Failure w/ EF of 40% POA Elevated troponin R/O ACS POA Elevated D-dimer of 3989, negative for DVT, Well score for PE 3 ( Moderate score) Metabolic acidosis POA Ascites Hepatomegaly Acute blood loss anemia POA Acute upper and lower GI bleed, POA Acute thrombocytopenia POA Acute on chronic diastolic CHF POA Hyperglycemia POA Hypomagnesemia POA Positive for THC POA Active alcohol drinker POA Acute complicated cystitis POA Hypertension POA acute GI bleed POA s/p EGD 06/13/24 non bleeding ulcer PLAN: Continue ICU admission Appreciate critical Care team, patient currently intubated, on AC mode and on norepinephrine drip Patient will continued to be NPO Patient continue IV antibiotics on vancomycin, cefepime and metronidazole Patient will continue Protonix and Sandostatin drip Continue to monitor electrolytes and replete as necessary Gastroenterology recommended EGD today Appreciate recommendations from Cardiology, elevated troponin is likely in the setting of acute respiratory failure and suspected GI bleed, no plans for invasive cardiac workup at this time. Furosemide adjusted to 40 mg IV q.12 hours We will repeat labs in the morning Case was discussed with Dr. Norris, above plan was formulated Critical care time: Spent 35 minutes of critical care time with the patient. Reviewed the lab work, reconciled and updated patient's medications, and coordinated plan of care in ICU. Code Status: DNR Disposition: TBD Prognosis: Guarded NEURO: Minimize central acting medications as possible. Fall Precautions. Well lighted room through the day and minimize interruptions through the night to prevent acute delirium. PULMONARY: Supplemental 02 as needed BiPAP as necessary, for respiratory distress Titrate Fio2 to keep Spo2 > or = 90% DuoNebs and CPT as needed IS hourly while awake for pulmonary hygiene Out of bed to chair as tolerated VAP Bundle Maintain aspiration precautions at all times CARDIOVASCULAR: Follow hemodynamics. Vital signs per facility protocol GI & NUTRITION: Continue nutritional support Aspirations precautions Prokinetic agents and laxatives as needed KIDNEYS & ELECTROLYTES: Strict monitoring of intake and output Daily weights Avoid nephrotoxic agents Monitor electrolytes and replace as needed Goal urine output of 30mL/hr or 0.5mL/kg/hr Medications to be dosed according to renal function. Avoid contrast if possible ENDOCRINE: Maintain blood glucose between 100-180 at all times. Insulin sliding scale for blood glucose management Hypoglycemia and hyperglycemia protocol in place INFECTIOUS DISEASE: Trend temperature, WBC and procalcitonin level Follow cultures, deescalate antibiotics as soon as possible. Panculture if new onset fever HEMATOLOGY & COAGULATION: Monitor H&H. Keep Hgb > 7 Transfuse 1 unit of PRBC for Hgb < 7 Transfuse 1 pack of platelets of platelets < 20, 000 Watch for any signs and symptoms of bleeding SKIN: Pressure ulcer prevention per facility protocol Specialty mattress as needed ] ATTESTATION BY PHYSICIAN I have seen and examined the patient. I reviewed the documentation, medical decision making, and treatment plan as noted by the mid-level provider above. I agree with the findings and plan of care. LAUREN NORRIS MD, KATARZYNA B WAITER/[employer]ESS [employer] Jun 13, 2024 19:07
--- NOTE | 2024-06-13 19:17 | NUR ---
PT STARTED ON LEVOPHED DUE TO MAP 55, PRECEDEX STARTED PRIOR TO HYPOTENSION. 0.06MCG/KG/MIN MAP NOW 110.
[2024-06-13 21:08] LABS: VANCOMYCIN TROUGH 11.1 UG/ML (10.0-20.0)
[2024-06-13] MEDS: VANCOMYCIN 1G/250ML KIT 250 ML IV SCH (21:43)
[2024-06-13] MEDS: dexmedeTOMIDine 400MCG/NS100ML IV ONE (23:02)
[2024-06-14] VITALS (109 sets, daily range): BP systolic 76–151; BP diastolic 43–89; PULSE 56–104; RESP 12–52; TEMP 97–102.5; O2SAT 93–100
[2024-06-14 04:36] LABS: BASOPHILS # (AUTO) 0.03 K/uL (0.00-0.20); BASOPHILS % (AUTO) 0.3 % (0.0-5.0); EOSINOPHILS # (AUTO) 0.03 K/uL (0.00-0.70); EOSINOPHILS % (AUTO) 0.3 % (0.0-8.0); HEMATOCRIT 31.2 % (42-54); IMMATURE GRANULOCYTE ABSOLUTE 0.18 K/uL (0-1); LYMPHOCYTES # (AUTO) 1.2 K/uL (1.0-4.8); LYMPHOCYTES % (AUTO) 13.2 % (21.0-51.0); MEAN CORPUSCULAR HEMOGLOBIN 34.8 pg (27.0-33.0); MEAN CORPUSCULAR HGB CONC 32.4 g/dL (32.0-36.0); MEAN CORPUSCULAR VOLUME 107.6 fL (79-99); MONOCYTES # (AUTO) 1.8 K/uL (0.1-1.0); MONOCYTES % (AUTO) 19.4 % (3.0-13.0); NEUTROPHILS # (AUTO) 6.1 K/uL (1.8-7.7); NEUTROPHILS % (AUTO) 64.9 % (40.0-77.0); NUCLEATED RED BLOOD CELLS 0.7 % (0.0-0.19); PLATELET COUNT (AUTO) 71 K/uL (130-400); RED CELL DISTRIBUTION WIDTH 13.2 % (11.0-15.5); WHITE BLOOD COUNT (AUTO) 9.4 K/uL (4.8-10.8)
[2024-06-14 04:49] LABS: ALBUMIN 2.3 g/dL (3.5-5.0); CREATININE 1.2 mg/dL (0.5-1.3); MAGNESIUM 2.3 mg/dL (1.80-2.40); POTASSIUM 3.7 mmol/L (3.5-5.1); TOTAL PROTEIN, SERUM 5.6 g/dL (6.0-8.3)
--- NOTE | 2024-06-14 06:58 | NUR ---
REPORT GIVEN TO CARLOS ALBERTO MURPHY
--- NOTE | 2024-06-14 09:07 | PN ---
[facility] CARDIOLOGY PROGRESS NOTE Cardiology progress note dictated for Tom Collins MD Date Patient Seen: Jun 14, 2024 Interval History: Patient seen in ICU Remains intubated Maintained on Norepinephrine gtt S/p EGD on 06/13/2024 finding a gastric ulcer in hematin. Physical Examination: GENERAL: No acute distress. LUNGS: rales bilaterally, no distress, intubated HEART: Normal rate and rhythm. VASC: Peripheral pulses +2 bilaterally. SKIN: warm, dry, distal extremities well perfused NEURO: intubated. moves spontaneously. does not follow commands. Laboratory: Hematology Labs: Test 06/14/24 03:51 Range/Units White Blood Count 9.4 4.8-10.8 K/uL Red Blood Count 2.90 L 4.50-6.20 MIL/uL Hemoglobin 10.1 L 14.0-18.0 g/dL Hematocrit 31.2 L 42-54 % Mean Corpuscular Volume 107.6 H 79-99 fL Mean Corpuscular Hemoglobin 34.8 H 27.0-33.0 pg Mean Corpuscular Hemoglobin Concent 32.4 32.0-36.0 g/dL Red Cell Distribution Width 13.2 11.0-15.5 % Platelet Count 71 L 130-400 K/uL Mean Platelet Volume 13.0 H 7.5-10.5 fL Immature Granulocyte % (Auto) 1.9 H 0-1 % Neutrophils (%) (Auto) 64.9 40.0-77.0 % Lymphocytes (%) (Auto) 13.2 L 21.0-51.0 % Monocytes (%) (Auto) 19.4 H 3.0-13.0 % Eosinophils (%) (Auto) 0.3 0.0-8.0 % Basophils (%) (Auto) 0.3 0.0-5.0 % Neutrophils # (Auto) 6.1 1.8-7.7 K/uL Lymphocytes # (Auto) 1.2 1.0-4.8 K/uL Monocytes # (Auto) 1.8 H 0.1-1.0 K/uL Eosinophils # (Auto) 0.03 0.00-0.70 K/uL Basophils # (Auto) 0.03 0.00-0.20 K/uL Absolute Immature Granulocyte (auto 0.18 0-1 K/uL Nucleated Red Blood Cells 0.7 H 0.0-0.19 % Chemistry Labs: Test 06/14/24 06:43 06/14/24 03:51 06/13/24 09:40 Range/Units Whole Blood Glucose 160 H 70-110 MG/DL Sodium Level 149 H 136-145 mmol/L Potassium Level 3.7 3.5-5.1 mmol/L Chloride Level 110 101-111 mmol/L Carbon Dioxide Level 29 21-32 mmol/L Blood Urea Nitrogen 35 H 7-18 mg/dL Creatinine 1.2 0.5-1.3 mg/dL Glomerular Filtration Rate Calc 71 >90 mL/min Random Glucose 178 H 70-105 mg/dL Total Calcium 7.5 L 8.5-10.1 mg/dL Magnesium Level 2.30 1.80-2.40 mg/dL Total Bilirubin 2.0 H 0.2-1.0 mg/dL Aspartate Amino Transf (AST/SGOT) 35 10-37 U/L Alanine Aminotransferase (ALT/SGPT) 20 12-78 U/L Alkaline Phosphatase 73 50-136 U/L Total Protein 5.6 L 6.0-8.3 g/dL Albumin 2.3 L 3.5-5.0 g/dL Ammonia 14 11-32 umol/L Diagnostics / Radiology: Impression and Plan: Type II WA Acute on chronic diastolic congestive heart failure HFrEF 40% Acute respiratory failure s/p intubation Pulmonary edema Suspected GI bleed Iron deficiency anemia Neutropenia improved/Thrombocytopenia persists, possible cirrhosis Electrolyte derangement Elevated D-dimer of 3989 HTN Positive for THC Metabolic acidosis POA Hyperglycemia POA Hypomagnesemia POA Active alcohol drinker POA Continue with IV diuresis until extubated and respiratory status stable Hold anticoagulation given thrombocytopenia Not a candidate for CHF GDMT due to ongoing hypotension. MONTSE HORTAP Jun 14, 2024 09:07 TOM COLLINS DO Jun 15, 2024 10:06
--- NOTE | 2024-06-14 09:55 | HMCIMG ---
Exam Type: CHEST 1VW Clinical Information: intubated Comparison: None Findings: Pulmonary pattern is as before. No worrisome interval changes have taken place. Impression: Stable exam.
--- NOTE | 2024-06-14 10:19 | PN ---
[facility] PROGRESS NOTE Date Patient Seen: Jun 14, 2024 Time of Visit: 10:19 Supervising Physician: Dr. Neal Primary Care Physician: Self Referral, Outpatient Specialists: Inpatient Consults: Dr Mena. 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 He has less pressor support only on Levophed today at 0.4 micrograms/kilogram per minute. He is still critically ill. Current vital signs and blood pressure 128/72 respiratory rate of 24 saturating 95% with FiO2 of 70%, heart rate 96 beats per minute, he developed a fever yesterday of 101.1 in the last 24 hours. He continues antibiotics with vanco cefepime and Flagyl. Sister is at the bedside who answered a few questions in regards to his medical history. She reports she has not been very informed of patient for the last three years but she reports patient has been told he has liver cirrhosis at least three years ago. He was told that if he did in quit drinking that he could within the next year. She also reports patient has heart problems and at one point he was placed on a LifeVest for heart failure. Urine output 2.3 L with a balance of-483 mL. On laboratory WBCs are 11.2 H&H is 10.1/29.7 seemed to be stable. Platelet count 59 K decreased from yesterday which was 91 K. Latest ABG with a pH of 7.35 pCO2 of 33 PO2 of 251 and bicarb of 17.9 base excess-6.7 improvement from yesterday. Ventilator Settings Adjusted To Assist Control Volume Control Tidal Volume Of 425 Respiratory Rate Of 24 Fio2 Of 70% And Peep Of 5. 2D echo shows EF of 40% with grade 1 diastolic dysfunction. Venous ultrasound with normal bilateral lower extremity venous Doppler. Ultrasound of the abdomen with moderate to marked hepatic steatosis, the liver is enlarged at 17 cm., ascites otherwise unremarkable exam including no abnormal per has been. Patient has a MELD score of 19 point which is 19.6% of estimated 3month mortality. EGD for today has been canceled per GI due to pt still on pressor support. Pt's sister was at the bedside and has requested for pt code status to be changed to DNR. 06/11/24: Patient continues critically ill currently on Levophed at 0.04 micrograms/kilogram per minute, fentanyl 125 micrograms/hour, Versed weaning at 4 milligrams/hour. He continues on Sandostatin drip and Protonix drip. We will switch to Protonix 40 ivp BID for now. Patient has been afebrile heart rate in the 80s hemodynamically improving blood pressure 108/68 with a map of 81 respiratory rate adjusted to 18 saturating 97% with a FiO2 45% on the vent, current settings of assist control volume control tidal volume of 425 respiratory rate of 18 FiO2 of 45 and PEEP of five. Prior ABGs showed a pH of 7 .51, pCO2 of 31 PO2 of 140 and bicarb of 24.2. Chest x-ray shows pulmonary pattern has been for no worrisome interval changes have taken place. Stable exam. ET tube 6.5 cm from the louis communicated with respiratory for insertion in 1.5 cm. We will continue to wean off sedation to assess mental status. once pt breathing over the vent we may start SBT. 06/12/24-patient assessed in room 206 ICU. As per RN no major overnight events. Has been off sedation since seven in the morning fentanyl and Versed has been turned off. We will assess respiratory status due to right now patient is still breathing on the vent and once he breathe over the vent we can start spontaneous breathing trials. Patient continues on low-dose Levophed at 0.04 micrograms/kilograms per minute attempting to wean off pressors. Hemodynamically stable at this time with blood pressure 107/71 heart rate of 90 respiratory rate of 13 saturating 97% with a FiO2 of 45%. Latest ABGs show pH of 7.42 pCO2 of 38 PO2 of 114 bicarb 24.7 O2 saturation 98.3 weaning on the FiO2. Input was 3.7 L in the last 24 hours with a balance of-2.7 L. he was on Lasix 40 mg IV push q.12 hours we will decreased now to Lasix 20 mg IV push daily which is equivalent to his Lasix 40 mg p.o. home medication. On labor atory WBCs are 10.9 trending down with the improvement H&H is stable 10.1/29.8 with a platelet count of 55 K. chemistries sodium 147 BUN 22 creatinine 1.4 GFR of 59 improving. Glucose of 197 mg/dL total protein 5.9 albumin 2.3. Sister at the bedside. I updated her with today is findings and answered all her questions. Inform her of the plan of care and she verbalized agreement. 06/13/24-patient assessed in room 206 in the ICU. This morning he is off pressors hemodynamically stable blood pressure 105/71 with a heart rate of 100 saturating 94% with a FiO2 of 45% on the vent breathing slightly over the vent at 18 with a rate on the vent of 14 and has been afebrile. Patient tolerated CPAP trials yesterday. Patient with minor movements and grimacing to face not fully awake and following commands. He has been off sedation x2 days. We will order CT head and brain without contrast to rule CVA. Urine output 2.7 L with a balance of -1.9. On laboratory WBCs are 9.1 H&H is 9.1/27.3 platelet count is 59 K. patient has been NPO due to GI bleed and we will start LR at a low-rate of 50 mL/hour. Patient may be encephalopathic from hypernatremia sodium of 153. Potassium of 3.1 chloride 113 carbon dioxide 30 BUN of 34 creatinine of 1.4 and GFR 59. Glucose of 212 mg/dL adjusted insulin sliding scale to #2 for hyperglycemia. Otherwise chest x-ray shows stable exam no worrisome interval changes. ET tube readjusted inserted 1.5 cm in per RT. We will follow GI recommendations in regards to a possible endoscopies since patient is off pressors and hemodynamically stable. CT of the head and brain without contrast ordered and is pending to be resulted. 06/14/2024: At the time of my evaluation, the patient is lying bed. Sister was present at the bedside during my visit. The patient has been off sedation x2 days and is still not arousable, RASS score of -5. CT head done on 06/13/2024, showed no concerning intracranial abnormality. He remains intubated and mechanically vented. Vital signs are in the hypotensive range systolic in the 80s with a map of 62, this was off Levophed. The patient continues on feeding through the OGT for nutritional support. I and O shows a net balance of 1129.0. Laboratory data today, showed stable WBC count, low H&H and platelet count. Chemistry panel showed no derangement of concern. Staff nurse showed no report of recurrent bleed. No new complaint. REVIEW OF SYSTEMS: Unable to perform due to patient's intubated. PHYSICAL EXAM: GENERAL: Intubated off sedation GCS 6T HEENT: Sclera non icteric, dry mucosa NECK: Supple, no JVD, trachea midline LUNGS: Diminished breath sounds bilaterally. No wheezes HEART: Regular rate and rhythm. Normal S1 and S2, without murmurs ABD: Abdomen soft, nontender. Bowel sounds present EXT: No clubbing cyanosis , swelling to bilateral lower extremities. NEURO: Intubated off sedation GCS 6T Vital Signs (last 8hr) Date Time Temp Pulse Resp B/P (MAP) Pulse Ox O2 Delivery O2 Flow Rate FiO2 06/14/24 09:23 74 45 06/14/24 08:46 72 15 83/52 (62) 95 06/14/24 08:31 72 18 92/58 (69) 97 06/14/24 08:16 70 22 89/57 (68) 98 06/14/24 08:01 73 17 78/51 (60) 95 06/14/24 07:58 74 27 96/57 (70) 97 06/14/24 07:46 73 18 92/50 (64) 96 06/14/24 07:31 69 20 89/59 (69) 99 06/14/24 07:16 65 12 87/52 (64) 98 06/14/24 07:01 97.0 66 15 82/46 (58) 95 06/14/24 07:00 45 06/14/24 07:00 98 Ventilator+ 45 06/14/24 06:46 65 23 92/56 (68) 98 06/14/24 06:35 66 45 06/14/24 06:31 64 26 90/53 (65) 96 06/14/24 06:16 66 13 97/64 (75) 98 06/14/24 06:01 66 24 93/57 (69) 97 06/14/24 05:46 68 23 96/64 (75) 98 06/14/24 05:31 67 20 92/58 (69) 96 06/14/24 05:16 68 25 102/68 (79) 98 06/14/24 05:01 69 26 87/51 (63) 95 06/14/24 04:46 69 20 95/59 (71) 99 06/14/24 04:31 70 18 93/61 (72) 99 06/14/24 04:16 68 24 91/57 (68) 97 06/14/24 04:03 73 45 06/14/24 04:01 67 29 112/73 (86) 98 06/14/24 04:00 97 Ventilator+ 45 06/14/24 03:46 97.7 69 24 85/55 (65) 98 06/14/24 03:31 75 28 106/79 (88) 100 06/14/24 03:16 73 18 112/74 (87) 98 06/14/24 03:01 73 18 110/72 (85) 98 06/14/24 02:46 74 18 107/73 (84) 98 06/14/24 02:31 74 17 103/72 (82) 98 LABS: Hematology Labs: Test 06/14/24 03:51 Range/Units White Blood Count 9.4 4.8-10.8 K/uL Red Blood Count 2.90 L 4.50-6.20 MIL/uL Hemoglobin 10.1 L 14.0-18.0 g/dL Hematocrit 31.2 L 42-54 % Mean Corpuscular Volume 107.6 H 79-99 fL Mean Corpuscular Hemoglobin 34.8 H 27.0-33.0 pg Mean Corpuscular Hemoglobin Concent 32.4 32.0-36.0 g/dL Red Cell Distribution Width 13.2 11.0-15.5 % Platelet Count 71 L 130-400 K/uL Mean Platelet Volume 13.0 H 7.5-10.5 fL Immature Granulocyte % (Auto) 1.9 H 0-1 % Neutrophils (%) (Auto) 64.9 40.0-77.0 % Lymphocytes (%) (Auto) 13.2 L 21.0-51.0 % Monocytes (%) (Auto) 19.4 H 3.0-13.0 % Eosinophils (%) (Auto) 0.3 0.0-8.0 % Basophils (%) (Auto) 0.3 0.0-5.0 % Neutrophils # (Auto) 6.1 1.8-7.7 K/uL Lymphocytes # (Auto) 1.2 1.0-4.8 K/uL Monocytes # (Auto) 1.8 H 0.1-1.0 K/uL Eosinophils # (Auto) 0.03 0.00-0.70 K/uL Basophils # (Auto) 0.03 0.00-0.20 K/uL Absolute Immature Granulocyte (auto 0.18 0-1 K/uL Nucleated Red Blood Cells 0.7 H 0.0-0.19 % Chemistry Labs: Test 06/14/24 06:43 06/14/24 03:51 06/13/24 09:40 Range/Units Whole Blood Glucose 160 H 70-110 MG/DL Sodium Level 149 H 136-145 mmol/L Potassium Level 3.7 3.5-5.1 mmol/L Chloride Level 110 101-111 mmol/L Carbon Dioxide Level 29 21-32 mmol/L Blood Urea Nitrogen 35 H 7-18 mg/dL Creatinine 1.2 0.5-1.3 mg/dL Glomerular Filtration Rate Calc 71 >90 mL/min Random Glucose 178 H 70-105 mg/dL Total Calcium 7.5 L 8.5-10.1 mg/dL Magnesium Level 2.30 1.80-2.40 mg/dL Total Bilirubin 2.0 H 0.2-1.0 mg/dL Aspartate Amino Transf (AST/SGOT) 35 10-37 U/L Alanine Aminotransferase (ALT/SGPT) 20 12-78 U/L Alkaline Phosphatase 73 50-136 U/L Total Protein 5.6 L 6.0-8.3 g/dL Albumin 2.3 L 3.5-5.0 g/dL Ammonia 14 11-32 umol/L DIAGNOSTICS / RADIOLOGY RESULTS: [ ] PLAN Daily sedation vacation. daily SBT's CT head and brain without contrast Precedex only if absolutely needed. Change Protonix gtt to IVP BID LR at 50 mL/hour for light hydration due to NPO status. Follow GI recommendations: Endoscopy? 06/14/2024: For now, we are going to continue current management for the patient. He will remain off of sedation and we will monitor his level of consciousness. I am going to repeat CT head/brain without contrast in a.m. and we will continue to correct any metabolic abnormalities that may affect his level of consciousness. Patient will remain intubated and we will continue with daily spontaneous breathing trials. I am going to increase the midodrine to 15 mg 3 times daily and we will monitor for bradycardic events. We will monitor the vital signs and heart rate. We will follow GI as planned on the possibility for endoscopic evaluation and we will continue to monitor for any recurrent bleed. The patient continue on Protonix IV twice daily. Brilliandeer Lopper on board due to the anemia. Blood, urine and sputum cultures are negative. Patient is developing a DTI to the buttocks for which we will consult youth care specialist. We will monitor the patient's progress and response to management. Patient remains critically ill and his prognosis is poor. Per the sister's input, if the patient would require trach and PEG, they might opt against it, patient is a DNR. We will continue to provide general supportive care, GI and DVT prophylaxis. Further orders per attending MD and hospital course. NEURO: Minimize central acting medications as possible. Fall Precautions. Well lighted room through the day and minimize interruptions through the night to prevent acute delirium. Lactulose enema and recheck ammonia in am PULMONARY: Supplemental 02 as needed Titrate Fio2 to keep Spo2 > or = 90% DuoNebs and CPT as needed IS hourly while awake for pulmonary hygiene Out of bed to chair as tolerated VAP Bundle Vent/BIPAP : Titrate to maintain optimal ventilation and oxygen saturation. Daily SBTs. CARDIOVASCULAR: Follow hemodynamics. Titrate vasopressor to keep MAP >65 or systolic blood pressure >95mmHg Cardiac monitoring Drips:: None LINES: RT IJ CVC PIV GI & NUTRITION: Continue nutritional support Aspirations precautions Prokinetic agents and laxatives as needed To low intermittent suction Per GI EGD canceled due to pressor support KIDNEYS & ELECTROLYTES: Strict monitoring of intake and output Daily weights Avoid nephrotoxic agents Monitor electrolytes and replace as needed Goal urine output of 30mL/hr or 0.5mL/kg/hr Monitor electrolytes and replace accordingly ENDOCRINE: Goal blood glucose between 100-180 at all times. INFECTIOUS DISEASE: Trend temperature. Salmeron-culture if febrile. Micro: Urine culture no growth Blood cultures no growth Respiratory cultures no growth Antibiotics: Vancomycin Cefepime Flagyl HEMATOLOGY & COAGULATION: Monitor H&H. Keep Hgb > 7 Transfuse 1 unit of PRBC for Hgb < 7 Transfuse 1 pack of platelets of platelets < 20, 000 Watch for any signs and symptoms of bleeding SKIN: Pressure ulcer prevention per facility protocol Rehab: PT/OT Prophylaxis: GI: Protonix IV 40mg BID DVT: SCDs due to GI bleed. Code Status: Full Resuscitation Disposition: ICU Other: Total patient care time exceeds 50 minutes excluding all procedures. Case was discussed and seen with my supervising physician. The above plan was formulated and agreed upon. FATIMAH SANTIAGO NP Jun 14, 2024 10:19
[2024-06-14 10:28] LABS: BASOPHILS # (AUTO) 0.03 K/uL (0.00-0.20); BASOPHILS % (AUTO) 0.3 % (0.0-5.0); HEMATOCRIT 30.5 % (42-54); IMMATURE GRANULOCYTE ABSOLUTE 0.09 K/uL (0-1); LYMPHOCYTES # (AUTO) 1.3 K/uL (1.0-4.8); LYMPHOCYTES % (AUTO) 13.3 % (21.0-51.0); MEAN CORPUSCULAR HEMOGLOBIN 35.4 pg (27.0-33.0); MEAN CORPUSCULAR HGB CONC 32.5 g/dL (32.0-36.0); MEAN CORPUSCULAR VOLUME 108.9 fL (79-99); MONOCYTES # (AUTO) 1.7 K/uL (0.1-1.0); MONOCYTES % (AUTO) 17.9 % (3.0-13.0); NEUTROPHILS # (AUTO) 6.4 K/uL (1.8-7.7); NEUTROPHILS % (AUTO) 66.6 % (40.0-77.0); NUCLEATED RED BLOOD CELLS 0.6 % (0.0-0.19); PLATELET COUNT (AUTO) 66 K/uL (130-400); RED CELL DISTRIBUTION WIDTH 12.9 % (11.0-15.5); WHITE BLOOD COUNT (AUTO) 9.6 K/uL (4.8-10.8)
[2024-06-14] MEDS: miDODRine HCL 5 MG TABLET PO ONE (10:42)
--- NOTE | 2024-06-14 11:34 | PN ---
GASTROENTEROLOGY PROGRESS NOTE Date of Visit: Jun 14, 2024 Time of Visit: 11:33 Events / Notes: No acute events overnight. EGD with gastric ulcer. Denies fever, chills, abdominal pain, N/V, hematemesis, bloating, constipation, diarrhea, melena or hematochezia. Review of Systems: CONSTITUTIONAL: No malaise or change in sensation of wellbeing. ENMT: No rhinorrhea, otorrhea, sinus pain, ear ache. CARDIOVASCULAR: No angina, palpitations, orthopnea or paroxysmal dyspnea. RESPIRATORY: No SOB. GASTROINTESTINAL: No abdominal pain, nausea, vomiting, diarrhea, hematemesis, melena or change in the patient's habitual bowel movements consistency/number. GENITOURINARY: No dysuria, hematuria or change in bladder continence. MUSCULOSKELETAL: No new muscle pain or decrease in muscular strength. No new joint swelling, redness or tenderness. SKIN: No new rash. Physical Exam: GEN: Awake, alert, oriented in person, time and place, and in no acute distress. HEENT: No sinus tenderness. Tympanic membranes were not examined. No rhinorrhea. Oral pharyngeal mucosa is pink, moist and within normal limits. Neck is supple with no cervical lymphadenopathy, thyromegaly or JVD. CHEST: Inspection, palpation and percussion of the chest were unremarkable. Lung auscultation revealed normal breath sounds bilaterally. CARDIAC: PMI is within normal limits. Heart sounds are regular. Normal S1, S2. No gallop or murmur. ABD: Soft, non-tender and not distended. No peritoneal signs on palpation. No organomegaly. Normal bowel sounds. EXT: No cyanosis or clubbing. No edema. SKIN: Intact. No rashes. JOINTS: No evidence of synovitis or acute arthritis. NEURO: Alert and oriented to name, place and person. Cranial nerve examination is unremarkable. No focal motor deficits. Normal speech. Gait is normal. Strength is normal. Vital Signs (last 8hr) Date Time Temp Pulse Resp B/P (MAP) Pulse Ox O2 Delivery O2 Flow Rate FiO2 06/14/24 11:29 99 Ventilator+ 45 06/14/24 09:23 74 45 06/14/24 08:46 72 15 83/52 (62) 95 06/14/24 08:31 72 18 92/58 (69) 97 06/14/24 08:16 70 22 89/57 (68) 98 06/14/24 08:01 73 17 78/51 (60) 95 06/14/24 07:58 74 27 96/57 (70) 97 06/14/24 07:46 73 18 92/50 (64) 96 06/14/24 07:31 69 20 89/59 (69) 99 06/14/24 07:16 65 12 87/52 (64) 98 06/14/24 07:01 97.0 66 15 82/46 (58) 95 06/14/24 07:00 45 06/14/24 07:00 98 Ventilator+ 45 06/14/24 06:46 65 23 92/56 (68) 98 06/14/24 06:35 66 45 06/14/24 06:31 64 26 90/53 (65) 96 06/14/24 06:16 66 13 97/64 (75) 98 06/14/24 06:01 66 24 93/57 (69) 97 06/14/24 05:46 68 23 96/64 (75) 98 06/14/24 05:31 67 20 92/58 (69) 96 06/14/24 05:16 68 25 102/68 (79) 98 06/14/24 05:01 69 26 87/51 (63) 95 06/14/24 04:46 69 20 95/59 (71) 99 06/14/24 04:31 70 18 93/61 (72) 99 06/14/24 04:16 68 24 91/57 (68) 97 06/14/24 04:03 73 45 06/14/24 04:01 67 29 112/73 (86) 98 06/14/24 04:00 97 Ventilator+ 45 06/14/24 03:46 97.7 69 24 85/55 (65) 98 Laboratory: [ ] Laboratory: Test 06/14/24 10:59 06/14/24 10:16 06/14/24 03:51 06/13/24 20:36 Range/Units Whole Blood Glucose 118 H 70-110 MG/DL White Blood Count 9.6 4.8-10.8 K/uL Red Blood Count 2.80 L 4.50-6.20 MIL/uL Hemoglobin 9.9 L 14.0-18.0 g/dL Hematocrit 30.5 L 42-54 % Mean Corpuscular Volume 108.9 H 79-99 fL Mean Corpuscular Hemoglobin 35.4 H 27.0-33.0 pg Mean Corpuscular Hemoglobin Concent 32.5 32.0-36.0 g/dL Red Cell Distribution Width 12.9 11.0-15.5 % Platelet Count 66 L 130-400 K/uL Mean Platelet Volume 12.9 H 7.5-10.5 fL Immature Granulocyte % (Auto) 0.9 0-1 % Neutrophils (%) (Auto) 66.6 40.0-77.0 % Lymphocytes (%) (Auto) 13.3 L 21.0-51.0 % Monocytes (%) (Auto) 17.9 H 3.0-13.0 % Eosinophils (%) (Auto) 1.0 0.0-8.0 % Basophils (%) (Auto) 0.3 0.0-5.0 % Neutrophils # (Auto) 6.4 1.8-7.7 K/uL Lymphocytes # (Auto) 1.3 1.0-4.8 K/uL Monocytes # (Auto) 1.7 H 0.1-1.0 K/uL Eosinophils # (Auto) 0.10 0.00-0.70 K/uL Basophils # (Auto) 0.03 0.00-0.20 K/uL Absolute Immature Granulocyte (auto 0.09 0-1 K/uL Nucleated Red Blood Cells 0.6 H 0.0-0.19 % Sodium Level 149 H 136-145 mmol/L Potassium Level 3.7 3.5-5.1 mmol/L Chloride Level 110 101-111 mmol/L Carbon Dioxide Level 29 21-32 mmol/L Blood Urea Nitrogen 35 H 7-18 mg/dL Creatinine 1.2 0.5-1.3 mg/dL Glomerular Filtration Rate Calc 71 >90 mL/min Random Glucose 178 H 70-105 mg/dL Total Calcium 7.5 L 8.5-10.1 mg/dL Magnesium Level 2.30 1.80-2.40 mg/dL Total Bilirubin 2.0 H 0.2-1.0 mg/dL Aspartate Amino Transf (AST/SGOT) 35 10-37 U/L Alanine Aminotransferase (ALT/SGPT) 20 12-78 U/L Alkaline Phosphatase 73 50-136 U/L Total Protein 5.6 L 6.0-8.3 g/dL Albumin 2.3 L 3.5-5.0 g/dL Vancomycin Level Trough 11.1 # 10.0-20.0 UG/ML Test 06/13/24 09:40 Range/Units Ammonia 14 11-32 umol/L Current Medications Medications (Trade) Dose Ordered Sig/Quan Route PRN Reason Start Time Stop Time Status Last Admin Dose Admin Acetaminophen (TYLenol 500MG TAB) 500 mg Q6H PRN PO TEMP < 101.1 AND/OR HEADACHE 06/09/24 18:00 07/09/24 17:59 06/14/24 00:23 500 MG Albumin Human 100 ml @ 50 mls/hr AD IV 06/12/24 11:00 06/14/24 10:59 DC 06/12/24 13:30 50 MLS/HR Artificial Tears (Artificial Tears) 1 DROP OR AD Q8H OU 06/09/24 09:00 07/09/24 08:59 06/14/24 07:48 1 DROP Cefepime HCl (MAXipime 2 gm vial) 2 gm Q12H IVPB 06/11/24 05:00 06/19/24 08:59 06/14/24 05:40 2 GM Cefepime HCl (MAXipime 2 gm vial) 2 gm Q8H IVPB 06/09/24 09:00 06/10/24 19:49 DC 06/10/24 16:44 2 GM Chlorhexidine Gluconate (Peridex) 15 ml Q8H MM 06/09/24 09:00 06/23/24 08:59 06/14/24 07:47 15 ML Dexmedetomidine/ Sodium Chloride (PRECEdex 400MCG/ 100ML-NS) 400 mcg PROTOCOL IV 06/11/24 20:30 07/11/24 20:29 06/13/24 23:03 400 MCG Dextrose/Sodium Chloride 1,000 ml @ 0 mls/hr AD IV 06/09/24 10:00 06/11/24 13:29 DC Fentanyl Citrate 100 ml @ 2.5 mls/hr PROTOCOL IV 06/09/24 06:30 06/12/24 13:28 DC 06/11/24 21:06 2.5 MLS/HR Folic Acid (FolVITE 5 MG/ML VIAL) 1 mg DAILY IV 06/09/24 18:00 07/09/24 17:59 06/14/24 10:42 1 MG Furosemide (LASix 20MG VIAL) 20 mg DAILY IV 06/13/24 09:00 06/13/24 09:20 DC 06/13/24 07:59 20 MG Furosemide (LASix 20MG VIAL) 20 mg Q12H IV 06/09/24 12:00 06/09/24 11:26 DC Furosemide (LASix 20MG VIAL) 20 mg Q6H6 IV 06/09/24 12:00 06/12/24 07:38 DC 06/12/24 06:46 20 MG Furosemide (LASix 20MG VIAL) 40 mg Q12H IV 06/12/24 08:00 06/12/24 14:58 DC 06/12/24 08:16 40 MG Heparin Sodium/ Dextrose 250 ml @ 0 mls/hr PROTOCOL IV 06/09/24 03:30 06/09/24 09:45 DC 06/09/24 03:31 10.78 MLS/HR Insulin Human Regular (humuLIN R 100 UNIT/ML 3ML) INSULIN SLIDING SCAL... Q6H6 SQ 06/11/24 12:00 06/13/24 11:22 DC 06/13/24 06:45 6 UNIT Insulin Human Regular (humuLIN R 100 UNIT/ML 3ML) INSULIN SLIDING SCAL... Q6H6 SQ 06/13/24 12:00 07/13/24 11:59 06/14/24 06:57 4 UNIT Insulin Human Regular 100 unit/ Sodium Chloride 101 ml @ 0 mls/hr PROTOCOL IV 06/09/24 10:00 06/11/24 13:29 DC 06/09/24 11:41 1 MLS/HR Ipratropium [place] (AtrovENT UD) 0.5 MG [id number] IH 06/14/24 14:00 07/14/24 13:59 Lactated Ringer's 1,000 ml @ 50 mls/hr Q20H IV 06/13/24 09:30 06/13/24 14:44 DC 06/13/24 11:18 50 MLS/HR Lactulose (Constulose 20gm/ 30ml Udcup) 20 gm DAILY PO 06/12/24 09:00 07/12/24 08:59 06/14/24 07:47 20 GM Levofloxacin/ Dextrose (LEvaquIN 750 MG/ D5W 150 ML) 750 mg Q24H IV 06/09/24 06:30 06/09/24 08:29 DC Lorazepam (AtiVAN) 2 mg Q4H PRN IVP ALCOHOL WITHDRAWAL PROTOCOL 06/09/24 18:00 06/16/24 17:59 Lorazepam (AtiVAN) 4 mg Q2H PRN IVP ALCOHOL WITHDRAWAL PROTOCOL 06/09/24 18:00 06/16/24 17:59 Magnesium Sulfate 50 ml @ 0 mls/hr PROTOCOL IV 06/09/24 10:00 06/11/24 13:29 DC 06/11/24 07:13 25 MLS/HR Magnesium Sulfate 50 ml @ 0 mls/hr PROTOCOL PRN IV OTHER [SEE ORDER COMMENTS] 06/09/24 01:00 06/09/24 06:50 DC 06/09/24 01:03 25 MLS/HR Magnesium Sulfate 50 ml @ 0 mls/hr PROTOCOL PRN IV OTHER [SEE ORDER COMMENTS] 06/09/24 07:00 06/09/24 08:35 DC Magnesium Sulfate 50 ml @ 0 mls/hr PROTOCOL PRN IV low magnesium 06/09/24 08:30 06/09/24 09:46 DC Magnesium Sulfate 50 ml @ 0 mls/hr PROTOCOL PRN IV MAGNESIUM PROTOCOL 06/11/24 15:00 07/11/24 14:59 06/13/24 08:01 25 MLS/HR Metronidazole/ Sodium Chloride 100 ml @ 100 mls/hr Q8H6 IVPB 06/09/24 14:00 06/19/24 13:59 06/14/24 05:40 100 MLS/HR Midazolam HCl (Midazolam 100mg-0.9% NS 100ml) 100 ml PROTOCOL IV 06/09/24 15:30 06/12/24 10:33 DC 06/11/24 08:05 100 ML Midodrine (PROAMatine 5 MG TABLET) 10 mg TID PO 06/11/24 14:00 06/14/24 10:06 DC 06/14/24 07:47 10 MG Midodrine (PROAMatine 5 MG TABLET) 15 mg TID PO 06/14/24 14:00 07/14/24 13:59 Multivitamins Therapeutic (Multivitamin Tablet) 1 tab DAILY PO 06/10/24 09:00 07/10/24 08:59 06/14/24 07:47 1 TAB Norepinephrine Bitartrate (Norepineph 16 Mg/250ml NS Premix) HIGH ALERT Init... PROTOCOL IV 06/09/24 12:30 07/09/24 12:29 06/13/24 19:21 16 MG Octreotide Acetate 1250 mcg/ Sodium Chloride 250 ml @ 0 mls/hr PROTOCOL IV 06/09/24 08:30 06/13/24 13:43 DC 06/11/24 13:17 5 MLS/HR Octreotide Acetate 500 mcg/ Sodium Chloride 100 ml @ 0 mls/hr PROTOCOL IV 06/09/24 04:30 06/09/24 08:13 DC 06/09/24 05:50 5 MLS/HR Ondansetron HCl (zoFRAN 4MG INJ) 4 mg Q4H PRN IV NAUSEA 06/09/24 18:00 07/09/24 17:59 Pantoprazole Sodium (PROTonix 40MG INJ) 40 mg BID IVP 06/11/24 21:00 07/11/24 20:59 06/14/24 07:47 40 MG Pantoprazole Sodium 80 mg/ Sodium Chloride 100 ml @ 10 mls/hr Q10H IVP 06/09/24 04:00 06/11/24 13:24 DC 06/11/24 08:04 10 MLS/HR Pharmacy Profile Note (Pharmacy Communication) 1 each PROTOCOL PRN MISC ETOH Withdrawal Score changes 06/09/24 18:00 06/16/24 17:59 Phenylephrine HCl 10 mg/Sodium Chloride 250 ml @ 0 mls/hr PROTOCOL PRN IV PROTOCOL 06/09/24 07:00 07/09/24 06:59 06/09/24 09:27 96 MLS/HR Potassium Chloride 20 meq/ Sodium Chloride 1,010 ml @ 0 mls/hr PROTOCOL IV 06/09/24 10:00 06/11/24 13:29 DC Potassium Chloride/Dextrose/ Sod Cl 1,000 ml @ 0 mls/hr AD IV 06/09/24 10:00 06/11/24 13:29 DC Potassium Chloride 100 ml @ 50 mls/hr AD PRN IV POTASSIUM PROTOCOL 06/09/24 07:00 06/09/24 08:34 DC Potassium Chloride 100 ml @ 50 mls/hr AD PRN IV POTASSIUM PROTOCOL 06/09/24 08:30 07/09/24 08:29 06/13/24 16:38 50 MLS/HR Potassium Chloride 100 ml @ 100 mls/hr AD PRN IV POTASSIUM PROTOCOL 06/09/24 08:30 06/09/24 08:41 DC Potassium Chloride (K-Dur/Klor-Con 20meq) 20 meq AD PRN PO POTASSIUM PROTOCOL 06/09/24 08:30 07/09/24 08:29 Potassium Chloride (KCl 10% Elixir 20meq/15ml) 20 meq AD PRN PO POTASSIUM PROTOCOL 06/09/24 08:30 07/09/24 08:29 06/14/24 10:46 20 MEQ Sodium Bicarbonate 150 meq/Dextrose 1,150 ml @ 150 mls/hr Q7H40M IVP 06/09/24 00:30 06/09/24 18:11 DC 06/09/24 01:18 150 MLS/HR Sodium Chloride 1,000 ml @ 200 mls/hr PROTOCOL IV 06/09/24 10:00 06/11/24 13:29 DC Thiamine HCl (Vitamin B-1) 300 mg DAILY IV 06/09/24 18:00 07/09/24 17:59 06/14/24 07:47 300 MG Vancomycin HCl 250 ml @ 125 mls/hr Q12H IV 06/09/24 22:00 06/10/24 21:50 DC 06/10/24 10:06 125 MLS/HR Vancomycin HCl 250 ml @ 125 mls/hr Q24H IV 06/11/24 22:00 06/12/24 21:39 DC 06/11/24 21:10 125 MLS/HR Vancomycin HCl 250 ml @ 125 mls/hr Q24H IV 06/13/24 22:00 06/23/24 21:59 06/13/24 21:43 125 MLS/HR Vancomycin HCl (Vancomycin Protocol) 1 each AD IV 06/09/24 09:00 06/23/24 08:59 Vasopressin 20 units/Sodium Chloride 100 ml @ 0 mls/hr PROTOCOL IV 06/09/24 07:00 07/09/24 06:59 06/09/24 08:20 9 MLS/HR Diagnostics / Radiology: [COPY/PASTE HERE IF NO REPORTS PLEASE DELETE SECTION] Assessment: Gastric ulcer Acute blood loss anemia Cirrhosis Plan: Continue GI prophylaxis Advance diet as tolerated Avoid NSAIDs Antireflux measures Monitor H&H and transfuse as needed Call with questions, concerns or change in clinical status Patient to follow-up at clinic post discharge Thank you for this consult LISA FRASER Jun 14, 2024 11:34
[2024-06-14] MEDS: miDODRine HCL 5 MG TABLET PO SCH (12:58)
--- NOTE | 2024-06-14 13:21 | PN ---
[facility] PROGRESS NOTE Date of Service: Jun 14, 2024 Time of Service: 13:[address] Norris SUBJECTIVE: [06/12/24 53-year-old male who was admitted due to persistent nausea vomiting, patient also was noted with metabolic acidosis initially was placed on BiPAP support and patient decompensated immediately and was intubated. He is being managed by critical care team. He continues to be intubated on AC mode. Patient is still on pressor support. Continues with IV antibiotics, was started with furosemide 20 mg IV q.12 hours today. We will continue to monitor closely. Patient is still currently intubated. 06/13/24 Pt was seen by CHILD SUPPORT CASE OFFICER and physician during rounding in room 206. Family member/sister at the bedside. Pt is s/p EGD today which showed non bleeding ulcers. CT Head/Brain negative. Per GI we can restart tube feedings. Pt off sedation . We will continue monitoring pt. AM labs 06/14/24 patient was seen by CHILD SUPPORT CASE OFFICER and physician during rounding. Sister at the bedside. CT head brain is negative. Chest x-ray stable exam. Patient was already started on feeding tubes per dietary recommendations. Patient continues to be in ICU. Patient is off pressors hemodynamically stable. Patient is saturating 94% with FiO2 of 45 on vent with a rate of 18, rate on vent of 18 and has been afebrile. Patient not fully awakened and does not follow commands. Off sedation day 2. Labs reviewed. We will follow GI recommendation in regarding possible endoscopic exam. REVIEW OF SYSTEMS Pt intubated PHYSICAL EXAM GENERAL APPEARANCE: The patient is awake, alert, and oriented, in no acute cardiopulmonary distress. NEUROLOGICAL: Cranial nerves II-XII grossly intact. Motor is 5/5 in bilateral upper and lower extremities proximal to distal. No sensory deficits. HEENT: Face is symmetric. Pupils are equal and reactive. Extraocular movements are intact. NECK: Supple. No JVD. No thyromegaly. No submental, submandibular, pre- /postauricular, occipital or supraclavicular lymphadenopathy. CHEST: Normal chest expansion. No Telemetry. LUNGS: Decreased bilateral breath sounds on the lower bases per auscultation CARDIOVASCULAR: Tachycardic Regular. S1 and S2 normal. No appreciable rubs, murmurs or gallops. ABDOMEN: Soft, nontender, and nondistended. There is no rebound, voluntary guarding, or rigidity. : Deferred. Gomez. EXTREMITIES: Non-edematous and not cyanotic. No clubbing. Good capillary refill. SKIN: No skin breakdown. Vital Signs (last 8hr) Date Time Temp Pulse Resp B/P (MAP) Pulse Ox O2 Delivery O2 Flow Rate FiO2 06/14/24 12:16 78 28 83/52 (62) 96 06/14/24 12:08 79 45 06/14/24 12:01 81 13 88/60 (69) 99 06/14/24 11:46 78 24 83/49 (60) 97 06/14/24 11:31 79 22 83/52 (62) 97 06/14/24 11:29 99 Ventilator+ 45 06/14/24 11:16 97.9 77 21 89/60 (70) 97 06/14/24 11:01 80 21 104/62 (76) 96 06/14/24 10:46 76 21 89/65 (73) 97 06/14/24 10:31 73 24 86/57 (67) 99 06/14/24 10:16 74 22 85/53 (64) 98 06/14/24 10:01 73 24 87/49 (62) 97 06/14/24 09:46 73 23 84/57 (66) 97 06/14/24 09:31 78 22 107/56 (73) 97 06/14/24 09:23 74 45 06/14/24 09:16 74 31 92/61 (71) 99 06/14/24 09:01 78 27 102/68 (79) 98 06/14/24 08:46 72 15 83/52 (62) 95 06/14/24 08:31 72 18 92/58 (69) 97 06/14/24 08:16 70 22 89/57 (68) 98 06/14/24 08:01 73 17 78/51 (60) 95 06/14/24 07:58 74 27 96/57 (70) 97 06/14/24 07:46 73 18 92/50 (64) 96 06/14/24 07:31 69 20 89/59 (69) 99 06/14/24 07:16 65 12 87/52 (64) 98 06/14/24 07:01 97.0 66 15 82/46 (58) 95 06/14/24 07:00 45 06/14/24 07:00 98 Ventilator+ 45 06/14/24 06:46 65 23 92/56 (68) 98 06/14/24 06:35 66 45 06/14/24 06:31 64 26 90/53 (65) 96 06/14/24 06:16 66 13 97/64 (75) 98 06/14/24 06:01 66 24 93/57 (69) 97 06/14/24 05:46 68 23 96/64 (75) 98 06/14/24 05:31 67 20 92/58 (69) 96 06/14/24 05:16 68 25 102/68 (79) 98 LABS: Laboratory: Test 06/14/24 10:59 06/14/24 10:16 06/14/24 03:51 06/13/24 20:36 Range/Units Whole Blood Glucose 118 H 70-110 MG/DL White Blood Count 9.6 4.8-10.8 K/uL Red Blood Count 2.80 L 4.50-6.20 MIL/uL Hemoglobin 9.9 L 14.0-18.0 g/dL Hematocrit 30.5 L 42-54 % Mean Corpuscular Volume 108.9 H 79-99 fL Mean Corpuscular Hemoglobin 35.4 H 27.0-33.0 pg Mean Corpuscular Hemoglobin Concent 32.5 32.0-36.0 g/dL Red Cell Distribution Width 12.9 11.0-15.5 % Platelet Count 66 L 130-400 K/uL Mean Platelet Volume 12.9 H 7.5-10.5 fL Immature Granulocyte % (Auto) 0.9 0-1 % Neutrophils (%) (Auto) 66.6 40.0-77.0 % Lymphocytes (%) (Auto) 13.3 L 21.0-51.0 % Monocytes (%) (Auto) 17.9 H 3.0-13.0 % Eosinophils (%) (Auto) 1.0 0.0-8.0 % Basophils (%) (Auto) 0.3 0.0-5.0 % Neutrophils # (Auto) 6.4 1.8-7.7 K/uL Lymphocytes # (Auto) 1.3 1.0-4.8 K/uL Monocytes # (Auto) 1.7 H 0.1-1.0 K/uL Eosinophils # (Auto) 0.10 0.00-0.70 K/uL Basophils # (Auto) 0.03 0.00-0.20 K/uL Absolute Immature Granulocyte (auto 0.09 0-1 K/uL Nucleated Red Blood Cells 0.6 H 0.0-0.19 % Sodium Level 149 H 136-145 mmol/L Potassium Level 3.7 3.5-5.1 mmol/L Chloride Level 110 101-111 mmol/L Carbon Dioxide Level 29 21-32 mmol/L Blood Urea Nitrogen 35 H 7-18 mg/dL Creatinine 1.2 0.5-1.3 mg/dL Glomerular Filtration Rate Calc 71 >90 mL/min Random Glucose 178 H 70-105 mg/dL Total Calcium 7.5 L 8.5-10.1 mg/dL Magnesium Level 2.30 1.80-2.40 mg/dL Total Bilirubin 2.0 H 0.2-1.0 mg/dL Aspartate Amino Transf (AST/SGOT) 35 10-37 U/L Alanine Aminotransferase (ALT/SGPT) 20 12-78 U/L Alkaline Phosphatase 73 50-136 U/L Total Protein 5.6 L 6.0-8.3 g/dL Albumin 2.3 L 3.5-5.0 g/dL Vancomycin Level Trough 11.1 # 10.0-20.0 UG/ML Test 06/13/24 09:40 Range/Units Ammonia 14 11-32 umol/L Current Medications Medications (Trade) Dose Ordered Sig/Quan Route PRN Reason Start Time Stop Time Status Last Admin Dose Admin Acetaminophen (TYLenol 500MG TAB) 500 mg Q6H PRN PO TEMP < 101.1 AND/OR HEADACHE 06/09/24 18:00 07/09/24 17:59 06/14/24 00:23 500 MG Albumin Human 100 ml @ 50 mls/hr AD IV 06/12/24 11:00 06/14/24 10:59 DC 06/12/24 13:30 50 MLS/HR Artificial Tears (Artificial Tears) 1 DROP OR AD Q8H OU 06/09/24 09:00 07/09/24 08:59 06/14/24 07:48 1 DROP Cefepime HCl (MAXipime 2 gm vial) 2 gm Q12H IVPB 06/11/24 05:00 06/19/24 08:59 06/14/24 05:40 2 GM Cefepime HCl (MAXipime 2 gm vial) 2 gm Q8H IVPB 06/09/24 09:00 06/10/24 19:49 DC 06/10/24 16:44 2 GM Chlorhexidine Gluconate (Peridex) 15 ml Q8H MM 06/09/24 09:00 06/23/24 08:59 06/14/24 07:47 15 ML Dexmedetomidine/ Sodium Chloride (PRECEdex 400MCG/ 100ML-NS) 400 mcg PROTOCOL IV 06/11/24 20:30 07/11/24 20:29 06/13/24 23:03 400 MCG Dextrose/Sodium Chloride 1,000 ml @ 0 mls/hr AD IV 06/09/24 10:00 06/11/24 13:29 DC Fentanyl Citrate 100 ml @ 2.5 mls/hr PROTOCOL IV 06/09/24 06:30 06/12/24 13:28 DC 06/11/24 21:06 2.5 MLS/HR Folic Acid (FolVITE 5 MG/ML VIAL) 1 mg DAILY IV 06/09/24 18:00 07/09/24 17:59 06/14/24 10:42 1 MG Furosemide (LASix 20MG VIAL) 20 mg DAILY IV 06/13/24 09:00 06/13/24 09:20 DC 06/13/24 07:59 20 MG Furosemide (LASix 20MG VIAL) 20 mg Q12H IV 06/09/24 12:00 06/09/24 11:26 DC Furosemide (LASix 20MG VIAL) 20 mg Q6H6 IV 06/09/24 12:00 06/12/24 07:38 DC 06/12/24 06:46 20 MG Furosemide (LASix 20MG VIAL) 40 mg Q12H IV 06/12/24 08:00 06/12/24 14:58 DC 06/12/24 08:16 40 MG Heparin Sodium/ Dextrose 250 ml @ 0 mls/hr PROTOCOL IV 06/09/24 03:30 06/09/24 09:45 DC 06/09/24 03:31 10.78 MLS/HR Insulin Human Regular (humuLIN R 100 UNIT/ML 3ML) INSULIN SLIDING SCAL... Q6H6 SQ 06/11/24 12:00 06/13/24 11:22 DC 06/13/24 06:45 6 UNIT Insulin Human Regular (humuLIN R 100 UNIT/ML 3ML) INSULIN SLIDING SCAL... Q6H6 SQ 06/13/24 12:00 07/13/24 11:59 06/14/24 06:57 4 UNIT Insulin Human Regular 100 unit/ Sodium Chloride 101 ml @ 0 mls/hr PROTOCOL IV 06/09/24 10:00 06/11/24 13:29 DC 06/09/24 11:41 1 MLS/HR Ipratropium [place] (AtrovENT UD) 0.5 MG [id number] IH 06/14/24 14:00 07/14/24 13:59 Lactated Ringer's 1,000 ml @ 50 mls/hr Q20H IV 06/13/24 09:30 06/13/24 14:44 DC 06/13/24 11:18 50 MLS/HR Lactulose (Constulose 20gm/ 30ml Udcup) 20 gm DAILY PO 06/12/24 09:00 07/12/24 08:59 06/14/24 07:47 20 GM Levofloxacin/ Dextrose (LEvaquIN 750 MG/ D5W 150 ML) 750 mg Q24H IV 06/09/24 06:30 06/09/24 08:29 DC Lorazepam (AtiVAN) 2 mg Q4H PRN IVP ALCOHOL WITHDRAWAL PROTOCOL 06/09/24 18:00 06/16/24 17:59 Lorazepam (AtiVAN) 4 mg Q2H PRN IVP ALCOHOL WITHDRAWAL PROTOCOL 06/09/24 18:00 06/16/24 17:59 Magnesium Sulfate 50 ml @ 0 mls/hr PROTOCOL IV 06/09/24 10:00 06/11/24 13:29 DC 06/11/24 07:13 25 MLS/HR Magnesium Sulfate 50 ml @ 0 mls/hr PROTOCOL PRN IV OTHER [SEE ORDER COMMENTS] 06/09/24 01:00 06/09/24 06:50 DC 06/09/24 01:03 25 MLS/HR Magnesium Sulfate 50 ml @ 0 mls/hr PROTOCOL PRN IV OTHER [SEE ORDER COMMENTS] 06/09/24 07:00 06/09/24 08:35 DC Magnesium Sulfate 50 ml @ 0 mls/hr PROTOCOL PRN IV low magnesium 06/09/24 08:30 06/09/24 09:46 DC Magnesium Sulfate 50 ml @ 0 mls/hr PROTOCOL PRN IV MAGNESIUM PROTOCOL 06/11/24 15:00 07/11/24 14:59 06/13/24 08:01 25 MLS/HR Metronidazole/ Sodium Chloride 100 ml @ 100 mls/hr Q8H6 IVPB 06/09/24 14:00 06/19/24 13:59 06/14/24 12:57 100 MLS/HR Midazolam HCl (Midazolam 100mg-0.9% NS 100ml) 100 ml PROTOCOL IV 06/09/24 15:30 06/12/24 10:33 DC 06/11/24 08:05 100 ML Midodrine (PROAMatine 5 MG TABLET) 10 mg TID PO 06/11/24 14:00 06/14/24 10:06 DC 06/14/24 07:47 10 MG Midodrine (PROAMatine 5 MG TABLET) 15 mg TID PO 06/14/24 14:00 07/14/24 13:59 06/14/24 12:58 15 MG Multivitamins Therapeutic (Multivitamin Tablet) 1 tab DAILY PO 06/10/24 09:00 07/10/24 08:59 06/14/24 07:47 1 TAB Norepinephrine Bitartrate (Norepineph 16 Mg/250ml NS Premix) HIGH ALERT Init... PROTOCOL IV 06/09/24 12:30 07/09/24 12:29 06/13/24 19:21 16 MG Octreotide Acetate 1250 mcg/ Sodium Chloride 250 ml @ 0 mls/hr PROTOCOL IV 06/09/24 08:30 06/13/24 13:43 DC 06/11/24 13:17 5 MLS/HR Octreotide Acetate 500 mcg/ Sodium Chloride 100 ml @ 0 mls/hr PROTOCOL IV 06/09/24 04:30 06/09/24 08:13 DC 06/09/24 05:50 5 MLS/HR Ondansetron HCl (zoFRAN 4MG INJ) 4 mg Q4H PRN IV NAUSEA 06/09/24 18:00 07/09/24 17:59 Pantoprazole Sodium (PROTonix 40MG INJ) 40 mg BID IVP 06/11/24 21:00 07/11/24 20:59 06/14/24 07:47 40 MG Pantoprazole Sodium 80 mg/ Sodium Chloride 100 ml @ 10 mls/hr Q10H IVP 06/09/24 04:00 06/11/24 13:24 DC 06/11/24 08:04 10 MLS/HR Pharmacy Profile Note (Pharmacy Communication) 1 each PROTOCOL PRN MISC ETOH Withdrawal Score changes 06/09/24 18:00 06/16/24 17:59 Phenylephrine HCl 10 mg/Sodium Chloride 250 ml @ 0 mls/hr PROTOCOL PRN IV PROTOCOL 06/09/24 07:00 07/09/24 06:59 06/09/24 09:27 96 MLS/HR Potassium Chloride 20 meq/ Sodium Chloride 1,010 ml @ 0 mls/hr PROTOCOL IV 06/09/24 10:00 06/11/24 13:29 DC Potassium Chloride/Dextrose/ Sod Cl 1,000 ml @ 0 mls/hr AD IV 06/09/24 10:00 06/11/24 13:29 DC Potassium Chloride 100 ml @ 50 mls/hr AD PRN IV POTASSIUM PROTOCOL 06/09/24 07:00 06/09/24 08:34 DC Potassium Chloride 100 ml @ 50 mls/hr AD PRN IV POTASSIUM PROTOCOL 06/09/24 08:30 07/09/24 08:29 06/13/24 16:38 50 MLS/HR Potassium Chloride 100 ml @ 100 mls/hr AD PRN IV POTASSIUM PROTOCOL 06/09/24 08:30 06/09/24 08:41 DC Potassium Chloride (K-Dur/Klor-Con 20meq) 20 meq AD PRN PO POTASSIUM PROTOCOL 06/09/24 08:30 07/09/24 08:29 Potassium Chloride (KCl 10% Elixir 20meq/15ml) 20 meq AD PRN PO POTASSIUM PROTOCOL 06/09/24 08:30 07/09/24 08:29 06/14/24 10:46 20 MEQ Sodium Bicarbonate 150 meq/Dextrose 1,150 ml @ 150 mls/hr Q7H40M IVP 06/09/24 00:30 06/09/24 18:11 DC 06/09/24 01:18 150 MLS/HR Sodium Chloride 1,000 ml @ 200 mls/hr PROTOCOL IV 06/09/24 10:00 06/11/24 13:29 DC Thiamine HCl (Vitamin B-1) 300 mg DAILY IV 06/09/24 18:00 07/09/24 17:59 06/14/24 07:47 300 MG Vancomycin HCl 250 ml @ 125 mls/hr Q12H IV 06/09/24 22:00 06/10/24 21:50 DC 06/10/24 10:06 125 MLS/HR Vancomycin HCl 250 ml @ 125 mls/hr Q24H IV 06/11/24 22:00 06/12/24 21:39 DC 06/11/24 21:10 125 MLS/HR Vancomycin HCl 250 ml @ 125 mls/hr Q24H IV 06/13/24 22:00 06/23/24 21:59 06/13/24 21:43 125 MLS/HR Vancomycin HCl (Vancomycin Protocol) 1 each AD IV 06/09/24 09:00 06/23/24 08:59 Vasopressin 20 units/Sodium Chloride 100 ml @ 0 mls/hr PROTOCOL IV 06/09/24 07:00 07/09/24 06:59 06/09/24 08:20 9 MLS/HR DIAGNOSTICS / RADIOLOGY: [ ] ASSESSMENT: Acute respiratory failure POA Septic shock, resolving Bilateral lower lobe bacterial pneumonia, POA Acute hepatic encephalopathy, POA Combined alcoholic and fatty liver cirrhosis, POA MELD Score 19 points (19.6% estimated three month mortality) NSTEMI type 2, 2/2 supply and demand mismatch POA Acute on chronic Stage I Diastolic Heart Failure w/ EF of 40% POA Elevated troponin R/O ACS POA Elevated D-dimer of 3989, negative for DVT, Well score for PE 3 ( Moderate score) Metabolic acidosis POA Ascites Hepatomegaly Acute blood loss anemia POA Acute upper and lower GI bleed, POA Acute thrombocytopenia POA Acute on chronic diastolic CHF POA Hyperglycemia POA Hypomagnesemia POA Positive for THC POA Active alcohol drinker POA Acute complicated cystitis POA Hypertension POA acute GI bleed POA s/p EGD 06/13/24 non bleeding ulcer PLAN: Continue ICU admission Appreciate critical Care team, patient currently intubated, on AC mode and on norepinephrine drip Patient will continued to be NPO Feeding tube per dietary Patient continue IV antibiotics on vancomycin, cefepime Flagyl CT head brain without contrast pending Precedex as needed Protonix changed to IV push b.i.d. Continue to monitor electrolytes and replete as necessary Appreciate recommendations from Cardiology, elevated troponin is likely in the setting of acute respiratory failure and suspected GI bleed, no plans for invasive cardiac workup at this time. Furosemide adjusted to 40 mg IV q.12 hours We will repeat labs in the morning Case was discussed with Dr. Norris, above plan was formulated Critical care time: Spent 35 minutes of critical care time with the patient. Reviewed the lab work, reconciled and updated patient's medications, and coordinated plan of care in ICU. Code Status: DNR Disposition: TBD Prognosis: Guarded NEURO: Minimize central acting medications as possible. Fall Precautions. Well lighted room through the day and minimize interruptions through the night to prevent acute delirium. PULMONARY: Supplemental 02 as needed Titrate Fio2 to keep Spo2 > or = 90% DuoNebs and CPT as needed IS hourly while awake for pulmonary hygiene Out of bed to chair as tolerated VAP Bundle Vent/BIPAP Settings: Assist-control volume control with tidal volume of 425 respiratory rate of 14 FiO2 45% and PEEP of 5. Daily SBTs. CARDIOVASCULAR: Follow hemodynamics. Titrate vasopressor to keep MAP >65 or systolic blood pressure >95mmHg Cardiac monitoring GI & NUTRITION: Continue nutritional support Aspirations precautions Prokinetic agents and laxatives as needed KIDNEYS & ELECTROLYTES: Strict monitoring of intake and output Daily weights Avoid nephrotoxic agents Monitor electrolytes and replace as needed Goal urine output of 30mL/hr or 0.5mL/kg/hr Monitor electrolytes and replace accordingly ENDOCRINE: Maintain blood glucose between 100-180 at all times. Insulin sliding scale for blood glucose management Hypoglycemia and hyperglycemia protocol in place INFECTIOUS DISEASE: Trend temperature, WBC and procalcitonin level Follow cultures, deescalate antibiotics as soon as possible. Panculture if new onset fever HEMATOLOGY & COAGULATION: Monitor H&H. Keep Hgb > 7 Transfuse 1 unit of PRBC for Hgb < 7 Transfuse 1 pack of platelets of platelets < 20, 000 Watch for any signs and symptoms of bleeding SKIN: Pressure ulcer prevention per facility protocol Specialty mattress as needed ] ATTESTATION BY PHYSICIAN I have seen and examined the patient. I reviewed the documentation, medical decision making, and treatment plan as noted by the mid-level provider above. I agree with the findings and plan of care. LAUREN NORRIS MD, KATARZYNA B APRN Jun 14, 2024 13:21
[2024-06-14] MEDS: IpraTROPium 0.5 MG/2.5 ML INH IH SCH (14:43)
--- NOTE | 2024-06-14 15:52 | NUR ---
[facility] Consult: Patient assessed by wound healing team. See wound assessment. Assessment and recommendations provided to primary nurse. Education provided. Addendum: 06/17/24 at 0907 by SONIA TRUJILLO RN RN/ Amended: Links added.
--- NOTE | 2024-06-14 16:38 | NUR ---
Nutrition consult per Pt intubated Reviewed labs, notes, and medications. Pt. is intubated off pressors 06/14/2024, and off sedation 2x days, OGT in place, on Vital 1.0 @ 25 ml/hr. + 250 mL Q4h CO2 WNL, Insulin, elevated BUN 35, Hyperglycemia 178, Hypernatremia 149, Hypocalcemia 7.5, Hypoproteinemia 5.6 per chart review. Weight via bed scale, TF 25mL/Hr. last BM at 06/13/2024. Outputs -1974.9 ml 06/13/24 per nursing. Family in the room during visit. Observe Vital 1.0 @ 25 mL/hr. MAP @ 80 during visit, residuals @ 500 mL. No wt change since admin per chart review. Performed NFPE during visit deltoid and pectoralis protrude, moderate depression quadriceps and gastrocnemius, visually assessed moderate muscle loss during visit. No abdominal fpc noted. Pt with severe PCM, Supplement thiamin 100 mg/day for 5-7 days + MVI QD for at least 10 days. Trickle feed provides 30% of patients kcal needs. Continue trickle feeds of Vital AF 1.0 @ 25 mL/hr. x 22 hours. Provides: 550 kcal, 22 gm pro, 1963 ml per day Communicated w/ Dietitian. Continue trickle feed of Vital 1.0 until Vital AF 1.2 is available. If residuals more than 500 ml stop tube feed for 2 hours. If repeated stop tube feed and contact MD per protocol Recommendations: Provide Vital 1.0 @ 25 mL/hr x 22 hrs + 250 mL Q4H Provides: 550 kcals, 22 g protein, 1958.7 ml per day -Provide goal rate of Vital AF 1.2 @ 50 ml/hr x 22 hrs + 250 ml Q4H once medically feasible Provides:1452 kcal, 91 gm pro, 2481 ml per day Monitor BM Monitor electrolytes Replenish electrolytes as protocol Monitor wts. Reweigh as available, Order Vit. D to rule out deficiencies. Monitor TF tolerance + need for TF adjustments. Monitor residuals. Residuals more than 500 ml stop tube feed for 2 hours. If repeated stop tube feed and contact MD. Monitor care goals RD to follow + available for consultation by protocol. Addendum: 06/14/24 at [address] Amended: Links added.
--- NOTE | 2024-06-14 16:57 | PN ---
This is a 53-year-old male past medical history of hypertension and CHF who was brought by EMS to the ED for complaints of persistent nausea,vomiting and shortness of breath and symptoms have been ongoing for 3 days and patient reports he has nopt been able to take his medication due to above reasons. Patient was intubated sedated. This patient is off sedation but not is waking up. Patient was evaluated by GI. EGD was done which showed nonbleeding ulcer. PHYSICAL EXAM GENERAL APPEARANCE: The patient is awake, alert, and oriented, in no acute cardiopulmonary distress. NEUROLOGICAL: Cranial nerves II-XII grossly intact. Motor is 5/5 in bilateral upper and lower extremities proximal to distal. No sensory deficits. HEENT: Face is symmetric. Pupils are equal and reactive. Extraocular movements are intact. NECK: Supple. No JVD. No thyromegaly. No submental, submandibular, pre- /postauricular, occipital or supraclavicular lymphadenopathy. CHEST: Normal chest expansion. No Telemetry. LUNGS: Decreased bilateral breath sounds on the lower bases per auscultation CARDIOVASCULAR: Tachycardic Regular. S1 and S2 normal. No appreciable rubs, murmurs or gallops. ABDOMEN: Soft, nontender, and nondistended. There is no rebound, voluntary guarding, or rigidity. : Deferred. Gomez. EXTREMITIES: Non-edematous and not cyanotic. No clubbing. Good capillary refill. SKIN: No skin breakdown. Assessment 1. Thrombocytopenia. Platelet count is 66K. 2. Anemia. Hemoglobin level 9.9 g/deciliter. This patient with iron deficiency anemia. Patient had EGD done which was positive for nonbleeding ulcer. 3. Respiratory failure with the patient is intubated. Patient is off sedation. Patient is not waking up. 4. Alcohol abuse 5. Drug abuse 6. Hypertension 7. Suspected GI bleeding Plan 1. Peripheral blood smear showed red blood cells to be Microcytic hypochromic red blood cell consistent with iron deficiency anemia.. There was no fragment cell or schistocyte. There is no teardrop cell. There is no rouleaux phenomena. There is no pelger-Huet cell. White blood cell with no blasts. Platelet count is decreased. There is large platelet consistent with peripheral consumption of the platelet most likely due to cirrhosis of the liver and splenomegaly. 2. There was hypersegmented neutrophils. This patient to Continue on folic acid 1 mg p.o. daily and vitamin B12 1000 mcg p.o. daily. 3. Patient with iron deficiency anemia. EGD was done yesterday which showed nonbleeding ulcer. This patient to be continued on IV iron. 4. No need for platelet transfusion at this time 5. This patient prognosis poor with the patient have multiple comorbidity. 4. Continue care as per software intern. 6. There is no need for anticoagulation in this patient especially his bleeding. Vitals/Labs Vital Signs Date Time Temp Pulse Resp B/P (MAP) Pulse Ox O2 Delivery O2 Flow Rate FiO2 06/14/24 16:53 45 06/14/24 15:47 93 Ventilator+ 06/14/24 15:02 79 06/14/24 14:43 25 06/14/24 13:16 87/58 (68) 06/14/24 11:16 97.9 06/13/24 13:10 15.0 Laboratory Tests 06/13/24 20:36 06/14/24 03:51 06/14/24 10:16 Medications Current Medications Furosemide 40 mg ONCE ONCE IV Last administered on 06/09/24at 00:55; Start 06/09/24 at 00:30; Stop 06/09/24 at 00:31; Status DC Magnesium Sulfate 50 ml @ As Directed STK-MED ONCE IV; Start 06/09/24 at 00:24; Stop 06/09/24 at 00:29; Status DC Diazepam 5 mg ONCE ONCE IVP Last administered on 06/09/24at 00:58; Start 06/09/24 at 00:30; Stop 06/09/24 at 00:36; Status DC Sodium Bicarbonate 150 meq/Dextrose 1,150 ml @ 150 mls/hr Q7H40M IVP Last administered on 06/09/24at 01:18; Start 06/09/24 at 00:30; Stop 06/09/24 at 18:11; Status DC Sodium Bicarbonate 50 meq ONCE ONCE IV Last administered on 06/09/24at 00:56; Start 06/09/24 at 00:30; Stop 06/09/24 at 00:36; Status DC Sodium Bicarbonate 0 ml @ As Directed STK-MED ONCE .ROUTE; Start 06/09/24 at 00:35; Stop 06/09/24 at 00:36; Status DC Diazepam 10 mg STK-MED ONCE .ROUTE; Start 06/09/24 at 00:36; Stop 06/09/24 at 00:37; Status DC Magnesium Sulfate 50 ml @ 0 mls/hr PROTOCOL PRN IV Last administered on 06/09/24at 01:03; Start 06/09/24 at 01:00; Stop 06/09/24 at 06:50; Status DC Heparin Sodium/ Dextrose 250 ml @ 0 mls/hr PROTOCOL IV Last administered on 06/09/24at 03:31; Start 06/09/24 at 03:30; Stop 06/09/24 at 09:45; Status DC Heparin Sodium (Porcine) 5,000 unit ONCE ONCE IV Last administered on 06/09/24at 03:27; Start 06/09/24 at 03:30; Stop 06/09/24 at 03:31; Status DC Pantoprazole Sodium 80 mg/ Sodium Chloride 100 ml @ 10 mls/hr Q10H IVP Last administered on 06/11/24at 08:04; Start 06/09/24 at 04:00; Stop 06/11/24 at 13:24; Status DC Pantoprazole Sodium 40 mg ONCE ONCE IVP Last administered on 06/09/24at 04:26; Start 06/09/24 at 04:00; Stop 06/09/24 at 04:01; Status DC Octreotide Acetate 500 mcg/ Sodium Chloride 100 ml @ 0 mls/hr PROTOCOL IV Last administered on 06/09/24at 05:50; Start 06/09/24 at 04:30; Stop 06/09/24 at 08:13; Status DC Octreotide Acetate 50 mcg ONCE ONCE IV Last administered on 06/09/24at 04:26; Start 06/09/24 at 04:30; Stop 06/09/24 at 04:31; Status DC Sodium Chloride 1,000 ml @ 500 mls/hr Q2H ONCE IV Last administered on 06/09/24at 05:03; Start 06/09/24 at 05:00; Stop 06/09/24 at 06:59; Status DC Sodium Chloride 1,000 ml @ As Directed STK-MED ONCE IV; Start 06/09/24 at 05:00; Stop 06/09/24 at 05:00; Status DC Fentanyl Citrate 100 ml @ As Directed STK-MED ONCE IV; Start 06/09/24 at 06:05; Stop 06/09/24 at 06:05; Status DC Ketamine HCl 50 mg STK-MED ONCE .ROUTE; Start 06/09/24 at 06:06; Stop 06/09/24 at 06:06; Status DC Midazolam HCl 100 ml ONCE ONCE IV Last administered on 06/09/24at 08:17; Start 06/09/24 at 06:30; Stop 06/09/24 at 06:59; Status DC Fentanyl Citrate 100 ml @ 2.5 mls/hr PROTOCOL IV Last administered on 06/11/24at 21:06; Start 06/09/24 at 06:30; Stop 06/12/24 at 13:28; Status DC Ketamine HCl 100 mg ONCE ONCE IM; Start 06/09/24 at 06:30; Stop 06/09/24 at 06:31; Status DC Pharmacy Profile Note 1 each ONCE ONCE MISC; Start 06/09/24 at 06:30; Stop 06/09/24 at 07:00; Status DC Rocuronium Sumner 50 mg STK-MED ONCE .ROUTE; Start 06/09/24 at 06:06; Stop 06/09/24 at 06:06; Status DC Norepinephrine 250 ml @ As Directed STK-MED ONCE IV; Start 06/09/24 at 06:16; Stop 06/09/24 at 06:16; Status DC Levofloxacin/ Dextrose 750 mg Q24H IV; Start 06/09/24 at 06:30; Stop 06/09/24 at 08:29; Status DC Potassium Chloride 100 ml @ 50 mls/hr AD PRN IV; Start 06/09/24 at 07:00; Stop 06/09/24 at 08:34; Status DC Magnesium Sulfate 50 ml @ 0 mls/hr PROTOCOL PRN IV; Start 06/09/24 at 07:00; Stop 06/09/24 at 08:35; Status DC Phenylephrine HCl 10 mg/Sodium Chloride 250 ml @ 0 mls/hr PROTOCOL PRN IV Last administered on 06/09/24at 09:27; Start 06/09/24 at 07:00; Stop 07/09/24 at 06:59 Vasopressin 20 units STK-MED ONCE .ROUTE; Start 06/09/24 at 06:42; Stop 06/09/24 at 06:42; Status DC Vasopressin 20 units/Sodium Chloride 100 ml @ 0 mls/hr PROTOCOL IV Last administered on 06/09/24at 08:20; Start 06/09/24 at 07:00; Stop 07/09/24 at 06:59 Furosemide 20 mg Q12H IV; Start 06/09/24 at 12:00; Stop 06/09/24 at 11:26; Status DC Octreotide Acetate 1250 mcg/ Sodium Chloride 250 ml @ 0 mls/hr PROTOCOL IV Last administered on 06/11/24at 13:17; Start 06/09/24 at 08:30; Stop 06/13/24 at 13:43; Status DC Potassium Chloride 100 ml @ 100 mls/hr AD PRN IV; Start 06/09/24 at 08:30; Stop 06/09/24 at 08:41; Status DC Potassium Chloride 20 meq AD PRN PO Last administered on 06/14/24at 10:46; Start 06/09/24 at 08:30; Stop 07/09/24 at 08:29 Potassium Chloride 20 meq AD PRN PO; Start 06/09/24 at 08:30; Stop 07/09/24 at 08:29 Potassium Chloride 100 ml @ 50 mls/hr AD PRN IV Last administered on 06/13/24at 16:38; Start 06/09/24 at 08:30; Stop 07/09/24 at 08:29 Magnesium Sulfate 50 ml @ 0 mls/hr PROTOCOL PRN IV; Start 06/09/24 at 08:30; Stop 06/09/24 at 09:46; Status DC Vancomycin HCl 1 each AD IV; Start 06/09/24 at 09:00; Stop 06/23/24 at 08:59 Cefepime HCl 2 gm Q8H IVPB Last administered on 06/10/24at 16:44; Start 06/09/24 at 09:00; Stop 06/10/24 at 19:49; Status DC Metronidazole/ Sodium Chloride 100 ml @ 100 mls/hr Q8H6 IVPB Last administered on 06/14/24at 12:57; Start 06/09/24 at 14:00; Stop 06/19/24 at 13:59 Chlorhexidine Gluconate 15 ml Q8H MM Last administered on 06/14/24at 07:47; Start 06/09/24 at 09:00; Stop 06/23/24 at 08:59 Artificial Tears 1 DROP OR AD Q8H OU Last administered on 06/14/24at 07:48; Start 06/09/24 at 09:00; Stop 07/09/24 at 08:59 Vancomycin HCl 250 ml @ 125 mls/hr ONCE ONCE IV Last administered on 06/09/24at 11:19; Start 06/09/24 at 09:00; Stop 06/09/24 at 10:59; Status DC Vancomycin HCl 250 ml @ 125 mls/hr Q12H IV Last administered on 06/10/24at 10:06; Start 06/09/24 at 22:00; Stop 06/10/24 at 21:50; Status DC Sodium Bicarbonate 50 ml @ As Directed STK-MED ONCE .ROUTE; Start 06/09/24 at 09:40; Stop 06/09/24 at 09:40; Status DC Sodium Bicarbonate 100 meq ONCE ONCE IV; Start 06/09/24 at 10:00; Stop 06/09/24 at 09:45; Status DC Potassium Chloride 20 meq ONCE ONCE PO; Start 06/09/24 at 10:00; Stop 06/09/24 at 10:01; Status DC Sodium Chloride 1,000 ml @ 200 mls/hr PROTOCOL IV; Start 06/09/24 at 10:00; Stop 06/11/24 at 13:29; Status DC Potassium Chloride/Dextrose/ Sod Cl 1,000 ml @ 0 mls/hr AD IV; Start 06/09/24 at 10:00; Stop 06/11/24 at 13:29; Status DC Potassium Chloride 20 meq/ Sodium Chloride 1,010 ml @ 0 mls/hr PROTOCOL IV; Start 06/09/24 at 10:00; Stop 06/11/24 at 13:29; Status DC Magnesium Sulfate 50 ml @ 0 mls/hr PROTOCOL IV Last administered on 06/11/24at 07:13; Start 06/09/24 at 10:00; Stop 06/11/24 at 13:29; Status DC Insulin Human Regular 100 unit/ Sodium Chloride 101 ml @ 0 mls/hr PROTOCOL IV Last administered on 06/09/24at 11:41; Start 06/09/24 at 10:00; Stop 06/11/24 at 13:29; Status DC Dextrose/Sodium Chloride 1,000 ml @ 0 mls/hr AD IV; Start 06/09/24 at 10:00; Stop 06/11/24 at 13:29; Status DC Sodium Bicarbonate 50 meq ONCE ONCE IV Last administered on 06/09/24at 11:20; Start 06/09/24 at 10:00; Stop 06/09/24 at 10:01; Status DC Furosemide 20 mg Q6H6 IV Last administered on 06/12/24at 06:46; Start 06/09/24 at 12:00; Stop 06/12/24 at 07:38; Status DC Norepinephrine 250 ml @ As Directed STK-MED ONCE IV; Start 06/09/24 at 12:03; Stop 06/09/24 at 12:04; Status DC Norepinephrine Bitartrate HIGH ALERT Init... PROTOCOL IV Last administered on 06/13/24at 19:21; Start 06/09/24 at 12:30; Stop 07/09/24 at 12:29 Pantoprazole Sodium 40 mg STK-MED ONCE .ROUTE; Start 06/09/24 at 12:19; Stop 06/09/24 at 12:19; Status DC Iohexol 75 ml STK-MED ONCE IV; Start 06/09/24 at 13:45; Stop 06/09/24 at 13:49; Status DC Midazolam HCl 100 ml PROTOCOL IV Last administered on 06/11/24at 08:05; Start 06/09/24 at 15:30; Stop 06/12/24 at 10:33; Status DC Lorazepam 2 mg Q4H PRN IVP; Start 06/09/24 at 18:00; Stop 06/16/24 at 17:59 Lorazepam 4 mg Q2H PRN IVP; Start 06/09/24 at 18:00; Stop 06/16/24 at 17:59 Ondansetron HCl 4 mg Q4H PRN IV; Start 06/09/24 at 18:00; Stop 07/09/24 at 17:59 Acetaminophen 500 mg Q6H PRN PO Last administered on 06/14/24at 00:23; Start 06/09/24 at 18:00; Stop 07/09/24 at 17:59 Multivitamins Therapeutic 1 tab DAILY PO Last administered on 06/14/24at 07:47; Start 06/10/24 at 09:00; Stop 07/10/24 at 08:59 Pharmacy Profile Note 1 each PROTOCOL PRN MISC; Start 06/09/24 at 18:00; Stop 06/16/24 at 17:59 Thiamine HCl 300 mg DAILY IV Last administered on 06/14/24at 07:47; Start 06/09/24 at 18:00; Stop 07/09/24 at 17:59 Folic Acid 1 mg DAILY IV Last administered on 06/14/24at 10:42; Start 06/09/24 at 18:00; Stop 07/09/24 at 17:59 Lactated Ringer's 500 ml BOLUS ONCE IV; Start 06/10/24 at 03:30; Stop 06/10/24 at 03:50; Status DC Lactulose 200 gm ONCE ONCE KS Last administered on 06/10/24at 11:11; Start 06/10/24 at 10:00; Stop 06/10/24 at 10:01; Status DC Cefepime HCl 2 gm Q12H IVPB Last administered on 06/14/24at 05:40; Start 06/11/24 at 05:00; Stop 06/19/24 at 08:59 Vancomycin HCl 250 ml @ 125 mls/hr Q24H IV Last administered on 06/11/24at 21:10; Start 06/11/24 at 22:00; Stop 06/12/24 at 21:39; Status DC Insulin Human Regular INSULIN SLIDING SCAL... Q6H6 SQ Last administered on 06/13/24at 06:45; Start 06/11/24 at 12:00; Stop 06/13/24 at 11:22; Status DC Midodrine 10 mg TID PO Last administered on 06/14/24at 07:47; Start 06/11/24 at 14:00; Stop 06/14/24 at 10:06; Status DC Lactulose 20 gm DAILY PO Last administered on 06/14/24at 07:47; Start 06/12/24 at 09:00; Stop 07/12/24 at 08:59 Pantoprazole Sodium 40 mg BID IVP Last administered on 06/14/24at 07:47; Start 06/11/24 at 21:00; Stop 07/11/24 at 20:59 Magnesium Sulfate 50 ml @ 0 mls/hr PROTOCOL PRN IV Last administered on 06/13/24at 08:01; Start 06/11/24 at 15:00; Stop 07/11/24 at 14:59 Dexmedetomidine/ Sodium Chloride 400 mcg PROTOCOL IV Last administered on 06/13/24at 23:03; Start 06/11/24 at 20:30; Stop 07/11/24 at 20:29 Furosemide 40 mg Q12H IV Last administered on 06/12/24at 08:16; Start 06/12/24 at 08:00; Stop 06/12/24 at 14:58; Status DC Albumin Human 100 ml @ 50 mls/hr AD IV Last administered on 06/12/24at 13:30; Start 06/12/24 at 11:00; Stop 06/14/24 at 10:59; Status DC Furosemide 20 mg DAILY IV Last administered on 06/13/24at 07:59; Start 06/13/24 at 09:00; Stop 06/13/24 at 09:20; Status DC Vancomycin HCl 250 ml @ 125 mls/hr Q24H IV Last administered on 06/13/24at 21:43; Start 06/13/24 at 22:00; Stop 06/23/24 at 21:59 Lactated Ringer's 1,000 ml @ 50 mls/hr Q20H IV Last administered on 06/13/24at 11:18; Start 06/13/24 at 09:30; Stop 06/13/24 at 14:44; Status DC Insulin Human Regular INSULIN SLIDING SCAL... Q6H6 SQ Last administered on 06/14/24at 06:57; Start 06/13/24 at 12:00; Stop 07/13/24 at 11:59 Fentanyl Citrate 100 mcg STK-MED ONCE .ROUTE; Start 06/13/24 at 12:57; Stop 06/13/24 at 12:59; Status DC Midazolam HCl 2 mg STK-MED ONCE .ROUTE; Start 06/13/24 at 12:57; Stop 06/13/24 at 12:59; Status DC Midazolam HCl 2 mg ONCE ONCE IVP Last administered on 06/13/24at 15:01; Start 06/13/24 at 14:00; Stop 06/13/24 at 14:01; Status DC Fentanyl Citrate 100 mcg ONCE ONCE IVP Last administered on 06/13/24at 15:01; Start 06/13/24 at 14:00; Stop 06/13/24 at 14:01; Status DC Dexmedetomidine/ Sodium Chloride 400 mcg STK-MED ONCE IV; Start 06/13/24 at 22:43; Stop 06/13/24 at 22:43; Status DC Midodrine 15 mg TID PO Last administered on 06/14/24at 12:58; Start 06/14/24 at 14:00; Stop 07/14/24 at 13:59 Ipratropium Sumner 0.5 MG [id number] IH Last administered on 06/14/24at 14:43; Start 06/14/24 at 14:00; Stop 07/14/24 at 13:59 Midodrine 5 mg ONCE ONCE PO Last administered on 06/14/24at 10:42; Start 06/14/24 at 11:00; Stop 06/14/24 at 11:01; Status DC ANAMARIA HAWK MD Jun 14, 2024 16:57
--- NOTE | 2024-06-14 17:00 | NUR ---
pt was noted to be agitated, tachycardic in 120's. applied suction, and called jazmyne FORREST to place on AC mode. pt continued agitation, Precedex started at max then started propofol started due to agitation and tachycardia. order given by while rounding, aware of plan of care.
[2024-06-14] MEDS ORDERED: proPOFol 1000 MG/100 ML IV PRN (17:30)
[2024-06-14] MEDS: proPOFol 1000 MG/100 ML 100 ML IV ONE (17:37)
--- NOTE | 2024-06-14 19:08 | NUR ---
cpap trials [id number]. pt became tachycardic and restless.
[2024-06-14] MEDS: BALSAM PERU/CASTOR OIL 60 GM TUBE TP SCH (19:54)
[2024-06-15] VITALS (109 sets, daily range): BP systolic 72–171; BP diastolic 50–112; PULSE 54–118; RESP 16–42; TEMP 97–98.4; O2SAT 97–100
[2024-06-15 04:22] LABS: BASOPHILS # (AUTO) 0.03 K/uL (0.00-0.20); BASOPHILS % (AUTO) 0.2 % (0.0-5.0); EOSINOPHILS # (AUTO) 0.15 K/uL (0.00-0.70); HEMATOCRIT 30.6 % (42-54); IMMATURE GRANULOCYTE ABSOLUTE 0.24 K/uL (0-1); LYMPHOCYTES # (AUTO) 1.5 K/uL (1.0-4.8); LYMPHOCYTES % (AUTO) 9.9 % (21.0-51.0); MEAN CORPUSCULAR HEMOGLOBIN 36.1 pg (27.0-33.0); MEAN CORPUSCULAR HGB CONC 33.7 g/dL (32.0-36.0); MEAN CORPUSCULAR VOLUME 107.4 fL (79-99); MONOCYTES # (AUTO) 2.1 K/uL (0.1-1.0); MONOCYTES % (AUTO) 13.7 % (3.0-13.0); NEUTROPHILS # (AUTO) 11.4 K/uL (1.8-7.7); NEUTROPHILS % (AUTO) 73.7 % (40.0-77.0); NUCLEATED RED BLOOD CELLS 0.4 % (0.0-0.19); PLATELET COUNT (AUTO) 78 K/uL (130-400); RED BLOOD CELL COUNT(AUTO) 2.85 MIL/uL (4.50-6.20); WHITE BLOOD COUNT (AUTO) 15.5 K/uL (4.8-10.8)
[2024-06-15 04:34] LABS: BILIRUBIN,TOTAL 2.8 mg/dL (0.2-1.0); CREATININE 1.2 mg/dL (0.5-1.3); POTASSIUM 3.7 mmol/L (3.5-5.1); TOTAL PROTEIN, SERUM 5.2 g/dL (6.0-8.3)
[2024-06-15 07:47] LABS: ABG BASE EXCESS -1.8 mmol/L (-2.0-3.0); ABG HCO3 21.5 mmol/L (21.0-28.0); ABG OXYGEN SATURATION 98.4 % (94.0-98.0); ABG PCO2 33 mmHg (35-48); ABG PH 7.436 (7.350-7.450); PO2, ARTERIAL BG 114.8 mmHg (83.0-108.0); VENT MODE, BG AC (ROOM AIR)
--- NOTE | 2024-06-15 09:25 | HMCIMG ---
Exam Type: CHEST 1VW Clinical Information: Intubated/PNA Comparison: None Findings: Pulmonary pattern is as before. No worrisome interval changes have taken place. Impression: Stable exam.
[2024-06-15] MEDS: LACTATED RINGERS 1000ML 1,000 ML IV SCH (09:57)
[2024-06-15] MEDS: LACTATED RINGERS 1000ML IV SCH (10:04)
--- NOTE | 2024-06-15 10:10 | PN ---
[facility] CARDIOLOGY PROGRESS NOTE Date Patient Seen: Jun 15, 2024 Time of Visit: 10:10 Interval History: Patient seen in ICU Physical Examination: GENERAL: [No acute distress.] LUNGS: [rales bilaterally, no distress, intubated] HEART: [Normal rate and rhythm. .] VASC: [Peripheral pulses +2 bilaterally.] SKIN: [warm, dry, distal extremities well perfused NEURO: [intubated. moves spontaneously. does not follow commands. Laboratory: [ ] Hematology Labs: Test 06/15/24 03:53 Range/Units White Blood Count 15.5 #H 4.8-10.8 K/uL Red Blood Count 2.85 L 4.50-6.20 MIL/uL Hemoglobin 10.3 L 14.0-18.0 g/dL Hematocrit 30.6 L 42-54 % Mean Corpuscular Volume 107.4 H 79-99 fL Mean Corpuscular Hemoglobin 36.1 H 27.0-33.0 pg Mean Corpuscular Hemoglobin Concent 33.7 32.0-36.0 g/dL Red Cell Distribution Width 13.0 11.0-15.5 % Platelet Count 78 L 130-400 K/uL Mean Platelet Volume 14.3 H 7.5-10.5 fL Immature Granulocyte % (Auto) 1.5 H 0-1 % Neutrophils (%) (Auto) 73.7 40.0-77.0 % Lymphocytes (%) (Auto) 9.9 L 21.0-51.0 % Monocytes (%) (Auto) 13.7 H 3.0-13.0 % Eosinophils (%) (Auto) 1.0 0.0-8.0 % Basophils (%) (Auto) 0.2 0.0-5.0 % Neutrophils # (Auto) 11.4 H 1.8-7.7 K/uL Lymphocytes # (Auto) 1.5 1.0-4.8 K/uL Monocytes # (Auto) 2.1 H 0.1-1.0 K/uL Eosinophils # (Auto) 0.15 0.00-0.70 K/uL Basophils # (Auto) 0.03 0.00-0.20 K/uL Absolute Immature Granulocyte (auto 0.24 0-1 K/uL Nucleated Red Blood Cells 0.4 H 0.0-0.19 % Chemistry Labs: Test 06/15/24 06:41 06/15/24 03:53 06/14/24 17:02 Range/Units Whole Blood Glucose 189 H 70-110 MG/DL Sodium Level 146 H 136-145 mmol/L Potassium Level 3.7 3.5-5.1 mmol/L Chloride Level 111 101-111 mmol/L Carbon Dioxide Level 27 21-32 mmol/L Blood Urea Nitrogen 39 H 7-18 mg/dL Creatinine 1.2 0.5-1.3 mg/dL Glomerular Filtration Rate Calc 71 >90 mL/min Random Glucose 193 H 70-105 mg/dL Total Calcium 7.5 L 8.5-10.1 mg/dL Magnesium Level 2.00 1.80-2.40 mg/dL Total Bilirubin 2.8 H 0.2-1.0 mg/dL Aspartate Amino Transf (AST/SGOT) 35 10-37 U/L Alanine Aminotransferase (ALT/SGPT) 14 12-78 U/L Alkaline Phosphatase 77 50-136 U/L Total Protein 5.2 L 6.0-8.3 g/dL Albumin 2.0 L 3.5-5.0 g/dL Vitamin B12 Level 3636 H 193-986 pg/mL Vitamin D 25-Hydroxy 15.4 30.0-100.0 ng/mL Impression and Plan: Type II NC Acute on chronic diastolic congestive heart failure HFrEF 40% Acute respiratory failure, community acquired pneumonia, s/p intubation Pulmonary edema Suspected GI bleed Iron deficiency anemia Neutropenia improved/Thrombocytopenia persists, possible cirrhosis Electrolyte derangement Elevated D-dimer of 3989 HTN Positive for THC Metabolic acidosis POA Hyperglycemia POA Hypomagnesemia POA Active alcohol drinker POA Patient continues to be hypotensive requiring midodrine therapy. Thrombocytopenia persist, however [place] [id number] during this hospitalization. Upper endoscopy did not reveal active bleeding or varices and Sandostatin was discontinued. At this time, I do not have a strong indication for patient to be placed on aspirin therapy given his risk of bleeding. His left ventricular systolic function is reduced, however no confirmed diagnosis of coronary artery disease/ischemic cardiomyopathy. When patient is extubated and shows improvement, I think reasonable to obtain repeat limited echo to re- evaluate the LVEF. Pending patient's recovery from acute illness, can consider noninvasive cardiac stress testing to evaluate for ischemia. TOM THOMPSON DO Jun 15, 2024 10:10
--- NOTE | 2024-06-15 10:34 | PN ---
[facility] PROGRESS NOTE Date Patient Seen: Jun 15, 2024 Time of Visit: 10:31 Supervising Physician: Dr. Neal Primary Care Physician: Self Referral, Outpatient Specialists: Inpatient Consults: Dr Mena. 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 He has less pressor support only on Levophed today at 0.4 micrograms/kilogram per minute. He is still critically ill. Current vital signs and blood pressure 128/72 respiratory rate of 24 saturating 95% with FiO2 of 70%, heart rate 96 beats per minute, he developed a fever yesterday of 101.1 in the last 24 hours. He continues antibiotics with vanco cefepime and Flagyl. Sister is at the bedside who answered a few questions in regards to his medical history. She reports she has not been very informed of patient for the last three years but she reports patient has been told he has liver cirrhosis at least three years ago. He was told that if he did in quit drinking that he could within the next year. She also reports patient has heart problems and at one point he was placed on a LifeVest for heart failure. Urine output 2.3 L with a balance of-483 mL. On laboratory WBCs are 11.2 H&H is 10.1/29.7 seemed to be stable. Platelet count 59 K decreased from yesterday which was 91 K. Latest ABG with a pH of 7.35 pCO2 of 33 PO2 of 251 and bicarb of 17.9 base excess-6.7 improvement from yesterday. Ventilator Settings Adjusted To Assist Control Volume Control Tidal Volume Of 425 Respiratory Rate Of 24 Fio2 Of 70% And Peep Of 5. 2D echo shows EF of 40% with grade 1 diastolic dysfunction. Venous ultrasound with normal bilateral lower extremity venous Doppler. Ultrasound of the abdomen with moderate to marked hepatic steatosis, the liver is enlarged at 17 cm., ascites otherwise unremarkable exam including no abnormal per has been. Patient has a MELD score of 19 point which is 19.6% of estimated 3month mortality. EGD for today has been canceled per GI due to pt still on pressor support. Pt's sister was at the bedside and has requested for pt code status to be changed to DNR. 06/11/24: Patient continues critically ill currently on Levophed at 0.04 micrograms/kilogram per minute, fentanyl 125 micrograms/hour, Versed weaning at 4 milligrams/hour. He continues on Sandostatin drip and Protonix drip. We will switch to Protonix 40 ivp BID for now. Patient has been afebrile heart rate in the 80s hemodynamically improving blood pressure 108/68 with a map of 81 respiratory rate adjusted to 18 saturating 97% with a FiO2 45% on the vent, current settings of assist control volume control tidal volume of 425 respiratory rate of 18 FiO2 of 45 and PEEP of five. Prior ABGs showed a pH of 7 .51, pCO2 of 31 PO2 of 140 and bicarb of 24.2. Chest x-ray shows pulmonary pattern has been for no worrisome interval changes have taken place. Stable exam. ET tube 6.5 cm from the louis communicated with respiratory for insertion in 1.5 cm. We will continue to wean off sedation to assess mental status. once pt breathing over the vent we may start SBT. 06/12/24-patient assessed in room 206 ICU. As per RN no major overnight events. Has been off sedation since seven in the morning fentanyl and Versed has been turned off. We will assess respiratory status due to right now patient is still breathing on the vent and once he breathe over the vent we can start spontaneous breathing trials. Patient continues on low-dose Levophed at 0.04 micrograms/kilograms per minute attempting to wean off pressors. Hemodynamically stable at this time with blood pressure 107/71 heart rate of 90 respiratory rate of 13 saturating 97% with a FiO2 of 45%. Latest ABGs show pH of 7.42 pCO2 of 38 PO2 of 114 bicarb 24.7 O2 saturation 98.3 weaning on the FiO2. Input was 3.7 L in the last 24 hours with a balance of-2.7 L. he was on Lasix 40 mg IV push q.12 hours we will decreased now to Lasix 20 mg IV push daily which is equivalent to his Lasix 40 mg p.o. home medication. On labor atory WBCs are 10.9 trending down with the improvement H&H is stable 10.1/29.8 with a platelet count of 55 K. chemistries sodium 147 BUN 22 creatinine 1.4 GFR of 59 improving. Glucose of 197 mg/dL total protein 5.9 albumin 2.3. Sister at the bedside. I updated her with today is findings and answered all her questions. Inform her of the plan of care and she verbalized agreement. 06/13/24-patient assessed in room 206 in the ICU. This morning he is off pressors hemodynamically stable blood pressure 105/71 with a heart rate of 100 saturating 94% with a FiO2 of 45% on the vent breathing slightly over the vent at 18 with a rate on the vent of 14 and has been afebrile. Patient tolerated CPAP trials yesterday. Patient with minor movements and grimacing to face not fully awake and following commands. He has been off sedation x2 days. We will order CT head and brain without contrast to rule CVA. Urine output 2.7 L with a balance of -1.9. On laboratory WBCs are 9.1 H&H is 9.1/27.3 platelet count is 59 K. patient has been NPO due to GI bleed and we will start LR at a low-rate of 50 mL/hour. Patient may be encephalopathic from hypernatremia sodium of 153. Potassium of 3.1 chloride 113 carbon dioxide 30 BUN of 34 creatinine of 1.4 and GFR 59. Glucose of 212 mg/dL adjusted insulin sliding scale to #2 for hyperglycemia. Otherwise chest x-ray shows stable exam no worrisome interval changes. ET tube readjusted inserted 1.5 cm in per RT. We will follow GI recommendations in regards to a possible endoscopies since patient is off pressors and hemodynamically stable. CT of the head and brain without contrast ordered and is pending to be resulted. 06/14/2024: At the time of my evaluation, the patient is lying bed. Sister was present at the bedside during my visit. The patient has been off sedation x2 days and is still not arousable, RASS score of -5. CT head done on 06/13/2024, showed no concerning intracranial abnormality. He remains intubated and mechanically vented. Vital signs are in the hypotensive range systolic in the 80s with a map of 62, this was off Levophed. The patient continues on feeding through the OGT for nutritional support. I and O shows a net balance of 1129.0. Laboratory data today, showed stable WBC count, low H&H and platelet count. Chemistry panel showed no derangement of concern. Staff nurse showed no report of recurrent bleed. No new complaint. 06/15/2024: At the time of my evaluation, the patient is lying in bed. The staff nurses present at the bedside as well as family members. Per the staff nurse, the patient was weaned off sedation and became very agitated overnight. His Precedex was resumed and he is currently RASS score of -2. The patient remains intubated and mechanically vented. ACVC rate of 12, TV 425, peep of 5 and FiO2 35%. On the monitor, the patient is hypotensive systolic in the 80s. Currently, was off Levophed and continues on midodrine. The patient continues on nutritional support via OGT and no report of nausea, vomiting or diarrhea. The patient remains with Gomez catheter in place abran color urine. Net balance on I's and O's of 1797.8. On labs, the was a increase in WBC count from 9.4 yesterday to 15.5 today. Cultures are negative. No acute events noted overnight. No other complaint. REVIEW OF SYSTEMS: Unable to perform due to patient's intubated. PHYSICAL EXAM: GENERAL: Intubated off sedation GCS 6T HEENT: Sclera non icteric, dry mucosa NECK: Supple, no JVD, trachea midline LUNGS: Diminished breath sounds bilaterally. No wheezes HEART: Regular rate and rhythm. Normal S1 and S2, without murmurs ABD: Abdomen soft, nontender. Bowel sounds present EXT: No clubbing cyanosis , swelling to bilateral lower extremities. NEURO: Intubated off sedation GCS 6T Vital Signs (last 8hr) Date Time Temp Pulse Resp B/P (MAP) Pulse Ox O2 Delivery O2 Flow Rate FiO2 06/15/24 10:01 78 35 06/15/24 08:00 100 Ventilator+ 35 06/15/24 06:55 69 35 06/15/24 06:54 63 20 06/15/24 06:31 61 18 112/81 (91) 99 06/15/24 06:16 58 16 117/78 (91) 99 06/15/24 06:01 60 22 114/78 (90) 99 06/15/24 05:46 66 27 105/72 (83) 99 06/15/24 05:31 71 21 99/67 (78) 100 06/15/24 05:17 70 23 109/65 (80) 99 06/15/24 05:16 69 18 99 06/15/24 05:01 65 22 127/83 (98) 99 06/15/24 04:46 61 23 113/74 (87) 100 06/15/24 04:31 61 21 118/73 (88) 99 06/15/24 04:16 65 24 113/73 (86) 99 06/15/24 04:14 97.7 61 20 114/72 (86) 99 06/15/24 04:00 100 Ventilator+ 35 06/15/24 04:00 35 06/15/24 03:46 73 23 136/82 (100) 98 06/15/24 03:31 57 22 137/77 (97) 99 06/15/24 03:16 59 24 134/80 (98) 99 06/15/24 03:06 69 35 06/15/24 03:01 58 22 124/76 (92) 99 06/15/24 02:46 60 25 134/80 (98) 99 06/15/24 02:41 61 25 LABS: Hematology Labs: Test 06/15/24 03:53 Range/Units White Blood Count 15.5 #H 4.8-10.8 K/uL Red Blood Count 2.85 L 4.50-6.20 MIL/uL Hemoglobin 10.3 L 14.0-18.0 g/dL Hematocrit 30.6 L 42-54 % Mean Corpuscular Volume 107.4 H 79-99 fL Mean Corpuscular Hemoglobin 36.1 H 27.0-33.0 pg Mean Corpuscular Hemoglobin Concent 33.7 32.0-36.0 g/dL Red Cell Distribution Width 13.0 11.0-15.5 % Platelet Count 78 L 130-400 K/uL Mean Platelet Volume 14.3 H 7.5-10.5 fL Immature Granulocyte % (Auto) 1.5 H 0-1 % Neutrophils (%) (Auto) 73.7 40.0-77.0 % Lymphocytes (%) (Auto) 9.9 L 21.0-51.0 % Monocytes (%) (Auto) 13.7 H 3.0-13.0 % Eosinophils (%) (Auto) 1.0 0.0-8.0 % Basophils (%) (Auto) 0.2 0.0-5.0 % Neutrophils # (Auto) 11.4 H 1.8-7.7 K/uL Lymphocytes # (Auto) 1.5 1.0-4.8 K/uL Monocytes # (Auto) 2.1 H 0.1-1.0 K/uL Eosinophils # (Auto) 0.15 0.00-0.70 K/uL Basophils # (Auto) 0.03 0.00-0.20 K/uL Absolute Immature Granulocyte (auto 0.24 0-1 K/uL Nucleated Red Blood Cells 0.4 H 0.0-0.19 % Chemistry Labs: Test 06/15/24 09:51 06/15/24 06:41 06/15/24 03:53 06/14/24 17:02 Range/Units Lactic Acid Level 1.5 0.8-2.5 mmol/L C-Reactive Protein, Quantitative 84.00 H 0.5-3.0 mg/L Whole Blood Glucose 189 H 70-110 MG/DL Sodium Level 146 H 136-145 mmol/L Potassium Level 3.7 3.5-5.1 mmol/L Chloride Level 111 101-111 mmol/L Carbon Dioxide Level 27 21-32 mmol/L Blood Urea Nitrogen 39 H 7-18 mg/dL Creatinine 1.2 0.5-1.3 mg/dL Glomerular Filtration Rate Calc 71 >90 mL/min Random Glucose 193 H 70-105 mg/dL Total Calcium 7.5 L 8.5-10.1 mg/dL Magnesium Level 2.00 1.80-2.40 mg/dL Total Bilirubin 2.8 H 0.2-1.0 mg/dL Aspartate Amino Transf (AST/SGOT) 35 10-37 U/L Alanine Aminotransferase (ALT/SGPT) 14 12-78 U/L Alkaline Phosphatase 77 50-136 U/L Total Protein 5.2 L 6.0-8.3 g/dL Albumin 2.0 L 3.5-5.0 g/dL Vitamin B12 Level 3636 H 193-986 pg/mL Vitamin D 25-Hydroxy 15.4 30.0-100.0 ng/mL DIAGNOSTICS / RADIOLOGY RESULTS: [ ] PLAN Daily sedation vacation. daily SBT's CT head and brain without contrast Precedex only if absolutely needed. Change Protonix gtt to IVP BID LR at 50 mL/hour for light hydration due to NPO status. Follow GI recommendations: Endoscopy? 06/14/2024: For now, we are going to continue current management for the patient. He will remain off of sedation and we will monitor his level of consciousness. I am going to repeat CT head/brain without contrast in a.m. and we will continue to correct any metabolic abnormalities that may affect his level of consciousness. Patient will remain intubated and we will continue with daily spontaneous breathing trials. I am going to increase the midodrine to 15 mg 3 times daily and we will monitor for bradycardic events. We will monitor the vital signs and heart rate. We will follow GI as planned on the possibility for endoscopic evaluation and we will continue to monitor for any recurrent bleed. The patient continue on Protonix IV twice daily. Radiology Equipment Servicer on board due to the anemia. Blood, urine and sputum cultures are negative. Patient is developing a DTI to the buttocks for which we will consult coronary clinical specialist. We will monitor the patient's progress and response to management. Patient remains critically ill and his prognosis is poor. Per the sister's input, if the patient would require trach and PEG, they might opt against it, davie finney is a DNR. We will continue to provide general supportive care, GI and DVT prophylaxis. Further orders per attending MD and hospital course. 06/15/2024: For now, we are going to continue current management for the patient. He will remain mechanically vented for now. We will attempt weaning trials once he is hemodynamically stable. We will resume the Levophed and titrate to maintain map above 65. We will put the patient on IV LR give a 500 mL bolus then continue at 75 mL/hour. We will monitor the blood pressure trend and adjust as necessary. We will continue feeding through the OGT and we will monitor for nausea, vomiting or diarrhea. We will follow the input of the treating specialist. We will monitor the patient's progress and response to management. We will continue to provide general supportive care, GI and DVT prophylaxis. Further orders per attending MD and hospital course. NEURO: Minimize central acting medications as possible. Fall Precautions. Well lighted room through the day and minimize interruptions through the night to prevent acute delirium. Lactulose enema and recheck ammonia in am PULMONARY: Supplemental 02 as needed Titrate Fio2 to keep Spo2 > or = 90% DuoNebs and CPT as needed IS hourly while awake for pulmonary hygiene Out of bed to chair as tolerated VAP Bundle Vent/BIPAP : Titrate to maintain optimal ventilation and oxygen saturation. Daily SBTs. CARDIOVASCULAR: Follow hemodynamics. Titrate vasopressor to keep MAP >65 or systolic blood pressure >95mmHg Cardiac monitoring Drips:: None LINES: RT IJ CVC PIV GI & NUTRITION: Continue nutritional support Aspirations precautions Prokinetic agents and laxatives as needed To low intermittent suction Per GI EGD canceled due to pressor support KIDNEYS & ELECTROLYTES: Strict monitoring of intake and output Daily weights Avoid nephrotoxic agents Monitor electrolytes and replace as needed Goal urine output of 30mL/hr or 0.5mL/kg/hr Monitor electrolytes and replace accordingly ENDOCRINE: Goal blood glucose between 100-180 at all times. INFECTIOUS DISEASE: Trend temperature. Salmeron-culture if febrile. Micro: Urine culture no growth Blood cultures no growth Respiratory cultures no growth Antibiotics: Vancomycin Cefepime Flagyl HEMATOLOGY & COAGULATION: Monitor H&H. Keep Hgb > 7 Transfuse 1 unit of PRBC for Hgb < 7 Transfuse 1 pack of platelets of platelets < 20, 000 Watch for any signs and symptoms of bleeding SKIN: Pressure ulcer prevention per facility protocol Rehab: PT/OT Prophylaxis: GI: Protonix IV 40mg BID DVT: SCDs due to GI bleed. Code Status: Full Resuscitation Disposition: ICU Other: Total patient care time exceeds 50 minutes excluding all procedures. Case was discussed and seen with my supervising physician. The above plan was formulated and agreed upon. FATIMAH SANTIAGO NP Jun 15, 2024 10:34
--- NOTE | 2024-06-15 12:04 | HMCIMG ---
Exam Type: CT HEAD/BRAIN W/O CONTRAST Clinical Information: Unarousable Comparison: None CT Dose Index (CTDI): 57.33 mGy Dose Length Product (DLP): 956.79 total mGy-cm Findings: The examination shows atrophy. There is low attenuation throughout the periventricular white matter locations, consistent with chronic small vessel ischemic changes. No acute intra- or extra-axial fluid collections are seen. There is no evidence of acute or chronic hemorrhage. There is no mass effect or shift of midline structures. There are no areas to suggest acute infarct. The skull windows show no significant abnormalities. IMPRESSION: 1. ATROPHY AND CHRONIC SMALL VESSEL ISCHEMIC CHANGES. This study was performed using dose reduction techniques to include automated exposure control and/or adjustment of the mA and/or kV according to patient size.
--- NOTE | 2024-06-15 12:06 | PN ---
GASTROENTEROLOGY PROGRESS NOTE Date of Visit: Jun 15, 2024 Time of Visit: 12:06 Events / Notes: No acute events overnight. EGD with gastric ulcer. Denies fever, chills, abdominal pain, N/V, hematemesis, bloating, constipation, diarrhea, melena or hematochezia. Review of Systems: CONSTITUTIONAL: No malaise or change in sensation of wellbeing. ENMT: No rhinorrhea, otorrhea, sinus pain, ear ache. CARDIOVASCULAR: No angina, palpitations, orthopnea or paroxysmal dyspnea. RESPIRATORY: No SOB. GASTROINTESTINAL: No abdominal pain, nausea, vomiting, diarrhea, hematemesis, melena or change in the patient's habitual bowel movements consistency/number. GENITOURINARY: No dysuria, hematuria or change in bladder continence. MUSCULOSKELETAL: No new muscle pain or decrease in muscular strength. No new joint swelling, redness or tenderness. SKIN: No new rash. Physical Exam: GEN: Awake, alert, oriented in person, time and place, and in no acute distress. HEENT: No sinus tenderness. Tympanic membranes were not examined. No rhinorrhea. Oral pharyngeal mucosa is pink, moist and within normal limits. Neck is supple with no cervical lymphadenopathy, thyromegaly or JVD. CHEST: Inspection, palpation and percussion of the chest were unremarkable. Lung auscultation revealed normal breath sounds bilaterally. CARDIAC: PMI is within normal limits. Heart sounds are regular. Normal S1, S2. No gallop or murmur. ABD: Soft, non-tender and not distended. No peritoneal signs on palpation. No organomegaly. Normal bowel sounds. EXT: No cyanosis or clubbing. No edema. SKIN: Intact. No rashes. JOINTS: No evidence of synovitis or acute arthritis. NEURO: Alert and oriented to name, place and person. Cranial nerve examination is unremarkable. No focal motor deficits. Normal speech. Gait is normal. Strength is normal. Vital Signs (last 8hr) Date Time Temp Pulse Resp B/P (MAP) Pulse Ox O2 Delivery O2 Flow Rate FiO2 06/15/24 10:01 78 35 06/15/24 08:00 100 Ventilator+ 35 06/15/24 06:55 69 35 06/15/24 06:54 63 20 06/15/24 06:31 61 18 112/81 (91) 99 06/15/24 06:16 58 16 117/78 (91) 99 06/15/24 06:01 60 22 114/78 (90) 99 06/15/24 05:46 66 27 105/72 (83) 99 06/15/24 05:31 71 21 99/67 (78) 100 06/15/24 05:17 70 23 109/65 (80) 99 06/15/24 05:16 69 18 99 06/15/24 05:01 65 22 127/83 (98) 99 06/15/24 04:46 61 23 113/74 (87) 100 06/15/24 04:31 61 21 118/73 (88) 99 06/15/24 04:16 65 24 113/73 (86) 99 06/15/24 04:14 97.7 61 20 114/72 (86) 99 Laboratory: [ ] Laboratory: Test 06/15/24 09:51 06/15/24 07:45 06/15/24 06:41 06/15/24 03:53 Range/Units Lactic Acid Level 1.5 0.8-2.5 mmol/L C-Reactive Protein, Quantitative 84.00 H 0.5-3.0 mg/L Procalcitonin 4.79 H 0.05-0.5 ng/mL Blood Gas Specimen Type Arterial Arterial Blood pH 7.436 7.350-7.450 Arterial Blood Partial Pressure CO2 33 L 35-48 mmHg Arterial Blood Partial Pressure O2 114.8 H 83.0-108.0 mmHg Arterial Blood HCO3 21.5 21.0-28.0 mmol/L Arterial Blood Oxygen Saturation 98.4 H 94.0-98.0 % Arterial Blood Base Excess -1.8 -2.0-3.0 mmol/L Blood Gas Temperature 37.0 35.5-37.0 CELSIUS Blood Gas Respiration Rate 12.0 min. Blood Gas Vent Mode AC ROOM AIR FiO2 35.0 % Blood Gas Tidal Volume 425 ml Blood Gas PEEP 5 cm H2O Blood Gas Specimen Comment RR, SANDRA,JEFFREY Whole Blood Glucose 189 H 70-110 MG/DL White Blood Count 15.5 #H 4.8-10.8 K/uL Red Blood Count 2.85 L 4.50-6.20 MIL/uL Hemoglobin 10.3 L 14.0-18.0 g/dL Hematocrit 30.6 L 42-54 % Mean Corpuscular Volume 107.4 H 79-99 fL Mean Corpuscular Hemoglobin 36.1 H 27.0-33.0 pg Mean Corpuscular Hemoglobin Concent 33.7 32.0-36.0 g/dL Red Cell Distribution Width 13.0 11.0-15.5 % Platelet Count 78 L 130-400 K/uL Mean Platelet Volume 14.3 H 7.5-10.5 fL Immature Granulocyte % (Auto) 1.5 H 0-1 % Neutrophils (%) (Auto) 73.7 40.0-77.0 % Lymphocytes (%) (Auto) 9.9 L 21.0-51.0 % Monocytes (%) (Auto) 13.7 H 3.0-13.0 % Eosinophils (%) (Auto) 1.0 0.0-8.0 % Basophils (%) (Auto) 0.2 0.0-5.0 % Neutrophils # (Auto) 11.4 H 1.8-7.7 K/uL Lymphocytes # (Auto) 1.5 1.0-4.8 K/uL Monocytes # (Auto) 2.1 H 0.1-1.0 K/uL Eosinophils # (Auto) 0.15 0.00-0.70 K/uL Basophils # (Auto) 0.03 0.00-0.20 K/uL Absolute Immature Granulocyte (auto 0.24 0-1 K/uL Nucleated Red Blood Cells 0.4 H 0.0-0.19 % Sodium Level 146 H 136-145 mmol/L Potassium Level 3.7 3.5-5.1 mmol/L Chloride Level 111 101-111 mmol/L Carbon Dioxide Level 27 21-32 mmol/L Blood Urea Nitrogen 39 H 7-18 mg/dL Creatinine 1.2 0.5-1.3 mg/dL Glomerular Filtration Rate Calc 71 >90 mL/min Random Glucose 193 H 70-105 mg/dL Total Calcium 7.5 L 8.5-10.1 mg/dL Magnesium Level 2.00 1.80-2.40 mg/dL Total Bilirubin 2.8 H 0.2-1.0 mg/dL Aspartate Amino Transf (AST/SGOT) 35 10-37 U/L Alanine Aminotransferase (ALT/SGPT) 14 12-78 U/L Alkaline Phosphatase 77 50-136 U/L Total Protein 5.2 L 6.0-8.3 g/dL Albumin 2.0 L 3.5-5.0 g/dL Test 06/14/24 17:02 06/13/24 20:36 Range/Units Vitamin B12 Level 3636 H 193-986 pg/mL Vitamin D 25-Hydroxy 15.4 30.0-100.0 ng/mL Vancomycin Level Trough 11.1 # 10.0-20.0 UG/ML Current Medications Medications (Trade) Dose Ordered Sig/Quan Route PRN Reason Start Time Stop Time Status Last Admin Dose Admin Acetaminophen (TYLenol 500MG TAB) 500 mg Q6H PRN PO TEMP < 101.1 AND/OR HEADACHE 06/09/24 18:00 07/09/24 17:59 06/14/24 17:35 500 MG Albumin Human 100 ml @ 50 mls/hr AD IV 06/12/24 11:00 06/14/24 10:59 DC 06/12/24 13:30 50 MLS/HR Artificial Tears (Artificial Tears) 1 DROP OR AD Q8H OU 06/09/24 09:00 07/09/24 08:59 06/15/24 08:21 1 DROP Cefepime HCl (MAXipime 2 gm vial) 2 gm Q12H IVPB 06/11/24 05:00 06/19/24 08:59 06/15/24 05:00 2 GM Cefepime HCl (MAXipime 2 gm vial) 2 gm Q8H IVPB 06/09/24 09:00 06/10/24 19:49 DC 06/10/24 16:44 2 GM Chlorhexidine Gluconate (Peridex) 15 ml Q8H MM 06/09/24 09:00 06/23/24 08:59 06/15/24 08:20 15 ML Dexmedetomidine/ Sodium Chloride (PRECEdex 400MCG/ 100ML-NS) 400 mcg PROTOCOL IV 06/11/24 20:30 07/11/24 20:29 06/15/24 09:09 400 MCG Dextrose/Sodium Chloride 1,000 ml @ 0 mls/hr AD IV 06/09/24 10:00 06/11/24 13:29 DC Fentanyl Citrate 100 ml @ 2.5 mls/hr PROTOCOL IV 06/09/24 06:30 06/12/24 13:28 DC 06/11/24 21:06 2.5 MLS/HR Folic Acid (FolVITE 5 MG/ML VIAL) 1 mg DAILY IV 06/09/24 18:00 07/09/24 17:59 06/15/24 09:17 1 MG Furosemide (LASix 20MG VIAL) 20 mg DAILY IV 06/13/24 09:00 06/13/24 09:20 DC 06/13/24 07:59 20 MG Furosemide (LASix 20MG VIAL) 20 mg Q12H IV 06/09/24 12:00 06/09/24 11:26 DC Furosemide (LASix 20MG VIAL) 20 mg Q6H6 IV 06/09/24 12:00 06/12/24 07:38 DC 06/12/24 06:46 20 MG Furosemide (LASix 20MG VIAL) 40 mg Q12H IV 06/12/24 08:00 06/12/24 14:58 DC 06/12/24 08:16 40 MG Heparin Sodium/ Dextrose 250 ml @ 0 mls/hr PROTOCOL IV 06/09/24 03:30 06/09/24 09:45 DC 06/09/24 03:31 10.78 MLS/HR Insulin Human Regular (humuLIN R 100 UNIT/ML 3ML) INSULIN SLIDING SCAL... Q6H6 SQ 06/11/24 12:00 06/13/24 11:22 DC 06/13/24 06:45 6 UNIT Insulin Human Regular (humuLIN R 100 UNIT/ML 3ML) INSULIN SLIDING SCAL... Q6H6 SQ 06/13/24 12:00 07/13/24 11:59 06/15/24 06:53 6 UNIT Insulin Human Regular 100 unit/ Sodium Chloride 101 ml @ 0 mls/hr PROTOCOL IV 06/09/24 10:00 06/11/24 13:29 DC 06/09/24 11:41 1 MLS/HR Ipratropium [place] (AtrovENT UD) 0.5 MG C2HSDSI 06/14/24 14:00 07/14/24 13:59 06/15/24 10:33 0.5 MG Lactated Ringer's 1,000 ml @ 50 mls/hr Q20H IV 06/13/24 09:30 06/13/24 14:44 DC 06/13/24 11:18 50 MLS/HR Lactated Ringer's 1,000 ml @ 75 mls/hr [id number] IV 06/15/24 11:00 07/15/24 10:59 06/15/24 09:57 75 MLS/HR Lactated Ringer's (Lactated Ringers 1000ml) 500 ml BOLUS IV 06/15/24 10:00 07/15/24 09:59 06/15/24 10:04 500 ML Lactulose (Constulose 20gm/ 30ml Udcup) 20 gm DAILY PO 06/12/24 09:00 07/12/24 08:59 06/15/24 08:21 20 GM Levofloxacin/ Dextrose (LEvaquIN 750 MG/ D5W 150 ML) 750 mg Q24H IV 06/09/24 06:30 06/09/24 08:29 DC Lorazepam (AtiVAN) 2 mg Q4H PRN IVP ALCOHOL WITHDRAWAL PROTOCOL 06/09/24 18:00 06/16/24 17:59 Lorazepam (AtiVAN) 4 mg Q2H PRN IVP ALCOHOL WITHDRAWAL PROTOCOL 06/09/24 18:00 06/16/24 17:59 Magnesium Sulfate 50 ml @ 0 mls/hr PROTOCOL IV 06/09/24 10:00 06/11/24 13:29 DC 06/11/24 07:13 25 MLS/HR Magnesium Sulfate 50 ml @ 0 mls/hr PROTOCOL PRN IV OTHER [SEE ORDER COMMENTS] 06/09/24 01:00 06/09/24 06:50 DC 06/09/24 01:03 25 MLS/HR Magnesium Sulfate 50 ml @ 0 mls/hr PROTOCOL PRN IV OTHER [SEE ORDER COMMENTS] 06/09/24 07:00 06/09/24 08:35 DC Magnesium Sulfate 50 ml @ 0 mls/hr PROTOCOL PRN IV low magnesium 06/09/24 08:30 06/09/24 09:46 DC Magnesium Sulfate 50 ml @ 0 mls/hr PROTOCOL PRN IV MAGNESIUM PROTOCOL 06/11/24 15:00 07/11/24 14:59 06/13/24 08:01 25 MLS/HR Metronidazole/ Sodium Chloride 100 ml @ 100 mls/hr Q8H6 IVPB 06/09/24 14:00 06/19/24 13:59 06/15/24 05:00 100 MLS/HR Midazolam HCl (Midazolam 100mg-0.9% NS 100ml) 100 ml PROTOCOL IV 06/09/24 15:30 06/12/24 10:33 DC 06/11/24 08:05 100 ML Midodrine (PROAMatine 5 MG TABLET) 10 mg TID PO 06/11/24 14:00 06/14/24 10:06 DC 06/14/24 07:47 10 MG Midodrine (PROAMatine 5 MG TABLET) 15 mg TID PO 06/14/24 14:00 07/14/24 13:59 06/15/24 08:21 15 MG Multivitamins Therapeutic (Multivitamin Tablet) 1 tab DAILY PO 06/10/24 09:00 07/10/24 08:59 06/15/24 08:21 1 TAB Norepinephrine Bitartrate (Norepineph 16 Mg/250ml NS Premix) HIGH ALERT Init... PROTOCOL IV 06/09/24 12:30 07/09/24 12:29 06/13/24 19:21 16 MG Octreotide Acetate 1250 mcg/ Sodium Chloride 250 ml @ 0 mls/hr PROTOCOL IV 06/09/24 08:30 06/13/24 13:43 DC 06/11/24 13:17 5 MLS/HR Octreotide Acetate 500 mcg/ Sodium Chloride 100 ml @ 0 mls/hr PROTOCOL IV 06/09/24 04:30 06/09/24 08:13 DC 06/09/24 05:50 5 MLS/HR Ondansetron HCl (zoFRAN 4MG INJ) 4 mg Q4H PRN IV NAUSEA 06/09/24 18:00 07/09/24 17:59 Pantoprazole Sodium (PROTonix 40MG INJ) 40 mg BID IVP 06/11/24 21:00 07/11/24 20:59 06/15/24 08:20 40 MG Pantoprazole Sodium 80 mg/ Sodium Chloride 100 ml @ 10 mls/hr Q10H IVP 06/09/24 04:00 06/11/24 13:24 DC 06/11/24 08:04 10 MLS/HR Pharmacy Profile Note (Pharmacy Communication) 1 each PROTOCOL PRN MISC ETOH Withdrawal Score changes 06/09/24 18:00 06/16/24 17:59 Phenylephrine HCl 10 mg/Sodium Chloride 250 ml @ 0 mls/hr PROTOCOL PRN IV PROTOCOL 06/09/24 07:00 07/09/24 06:59 06/09/24 09:27 96 MLS/HR Potassium Chloride 20 meq/ Sodium Chloride 1,010 ml @ 0 mls/hr PROTOCOL IV 06/09/24 10:00 06/11/24 13:29 DC Potassium Chloride/Dextrose/ Sod Cl 1,000 ml @ 0 mls/hr AD IV 06/09/24 10:00 06/11/24 13:29 DC Potassium Chloride 100 ml @ 50 mls/hr AD PRN IV POTASSIUM PROTOCOL 06/09/24 07:00 06/09/24 08:34 DC Potassium Chloride 100 ml @ 50 mls/hr AD PRN IV POTASSIUM PROTOCOL 06/09/24 08:30 07/09/24 08:29 06/13/24 16:38 50 MLS/HR Potassium Chloride 100 ml @ 100 mls/hr AD PRN IV POTASSIUM PROTOCOL 06/09/24 08:30 06/09/24 08:41 DC Potassium Chloride (K-Dur/Klor-Con 20meq) 20 meq AD PRN PO POTASSIUM PROTOCOL 06/09/24 08:30 07/09/24 08:29 Potassium Chloride (KCl 10% Elixir 20meq/15ml) 20 meq AD PRN PO POTASSIUM PROTOCOL 06/09/24 08:30 07/09/24 08:29 06/14/24 10:46 20 MEQ Propofol (DIPRivan 1000MG/ 100ML) 1,000 mg PROTOCOL PRN IV SEDATION 06/14/24 17:30 07/14/24 17:29 Sodium Bicarbonate 150 meq/Dextrose 1,150 ml @ 150 mls/hr Q7H40M IVP 06/09/24 00:30 06/09/24 18:11 DC 06/09/24 01:18 150 MLS/HR Sodium Chloride 1,000 ml @ 200 mls/hr PROTOCOL IV 06/09/24 10:00 06/11/24 13:29 DC Thiamine HCl (Vitamin B-1) 300 mg DAILY IV 06/09/24 18:00 07/09/24 17:59 06/15/24 08:20 300 MG Vancomycin HCl 250 ml @ 125 mls/hr Q12H IV 06/09/24 22:00 06/10/24 21:50 DC 06/10/24 10:06 125 MLS/HR Vancomycin HCl 250 ml @ 125 mls/hr Q24H IV 06/11/24 22:00 06/12/24 21:39 DC 06/11/24 21:10 125 MLS/HR Vancomycin HCl 250 ml @ 125 mls/hr Q24H IV 06/13/24 22:00 06/23/24 21:59 06/14/24 21:26 125 MLS/HR Vancomycin HCl (Vancomycin Protocol) 1 each AD IV 06/09/24 09:00 06/23/24 08:59 Vasopressin 20 units/Sodium Chloride 100 ml @ 0 mls/hr PROTOCOL IV 06/09/24 07:00 07/09/24 06:59 06/09/24 08:20 9 MLS/HR Wound Care/ Dressing Products (Venelex Ointment) 1 APPL TID TP 06/14/24 21:00 07/14/24 20:59 06/15/24 08:21 1 GM Diagnostics / Radiology: [COPY/PASTE HERE IF NO REPORTS PLEASE DELETE SECTION] Assessment: Gastric ulcer Acute blood loss anemia Cirrhosis Plan: Continue GI prophylaxis Advance diet as tolerated Avoid NSAIDs Antireflux measures Monitor H&H and transfuse as needed Call with questions, concerns or change in clinical status Patient to follow-up at clinic post discharge Thank you for this consult LISA FRASER Jun 15, 2024 12:06
--- NOTE | 2024-06-15 13:51 | PN ---
[facility] PROGRESS NOTE Date of Service: Jun 15, 2024 Time of Service: 13:[address] Byrd SUBJECTIVE: [06/12/24 53-year-old male who was admitted due to persistent nausea vomiting, patient also was noted with metabolic acidosis initially was placed on BiPAP support and patient decompensated immediately and was intubated. He is being managed by critical care team. He continues to be intubated on AC mode. Patient is still on pressor support. Continues with IV antibiotics, was started with furosemide 20 mg IV q.12 hours today. We will continue to monitor closely. Patient is still currently intubated. 06/13/24 Pt was seen by [employer] and physician during rounding in room 206. Family member/sister at the bedside. Pt is s/p EGD today which showed non bleeding u lcers. CT Head/Brain negative. Per GI we can restart tube feedings. Pt off sedation . We will continue monitoring pt. AM labs 06/14/24 patient was seen by [employer] and physician during rounding. Sister at the bedside. CT head brain is negative. Chest x-ray stable exam. Patient was already started on feeding tubes per dietary recommendations. Patient continues to be in ICU. Patient is off pressors hemodynamically stable. Patient is saturating 94% with FiO2 of 45 on vent with a rate of 18, rate on vent of 18 and has been afebrile. Patient not fully awakened and does not follow commands. Off sedation day 2. Labs reviewed. We will follow GI recommendation in regarding possible endoscopic exam. 06/15/24 patient was seen by [employer] and physician during rounding in room 206. Sister at the bedside updated records to further plan. WBC today is 15.5 which has a significant increase from the prior day which was 9.6. Blood culture negative x2 for the past four days. Sputum final culture negative. Final urine culture negative. Chest x-ray stable exam. Head CT showed atrophy and chronic small- vessel ischemic changes. Patient was weaned off sedation and became very agitated overnight. The patient remains intubated and mechanically vented. ACVC rate of 12, TV 425, peep of 5 and FiO2 35%. Currently patient is off Levophed and continues to be on midodrine. Patient has a Gomez catheter in place abran color of the urine. We will continue to monitor patient in the meantime. A.m. labs REVIEW OF SYSTEMS Pt intubated PHYSICAL EXAM GENERAL APPEARANCE: The patient is awake, alert, and oriented, in no acute cardiopulmonary distress. NEUROLOGICAL: Cranial nerves II-XII grossly intact. Motor is 5/5 in bilateral upper and lower extremities proximal to distal. No sensory deficits. HEENT: Face is symmetric. Pupils are equal and reactive. Extraocular movements are intact. NECK: Supple. No JVD. No thyromegaly. No submental, submandibular, pre-/po stauricular, occipital or supraclavicular lymphadenopathy. CHEST: Normal chest expansion. No Telemetry. LUNGS: Decreased bilateral breath sounds on the lower bases per auscultation CARDIOVASCULAR: Regular. S1 and S2 normal. No appreciable rubs, murmurs or gallops. ABDOMEN: Soft, nontender, and nondistended. There is no rebound, voluntary guarding, or rigidity. : Deferred. Gomez. EXTREMITIES: Non-edematous and not cyanotic. No clubbing. Good capillary refill. SKIN: No skin breakdown. Vital Signs (last 8hr) Date Time Temp Pulse Resp B/P (MAP) Pulse Ox O2 Delivery O2 Flow Rate FiO2 06/15/24 12:53 100 Ventilator+ 35 06/15/24 12:08 59 35 06/15/24 11:16 97.0 68 19 90/50 (63) 100 06/15/24 11:04 74 20 171/100 (123) 100 06/15/24 10:31 64 22 130/82 (98) 100 06/15/24 10:16 63 22 136/84 (101) 100 06/15/24 10:01 78 35 06/15/24 10:01 70 24 132/98 (109) 100 06/15/24 09:46 79 30 138/75 (96) 100 06/15/24 09:31 74 23 136/90 (105) 100 06/15/24 09:16 68 22 142/100 (114) 100 06/15/24 09:09 65 25 105/72 (83) 100 06/15/24 09:01 65 24 72/51 (58) 99 06/15/24 08:55 61 23 80/53 (62) 98 06/15/24 08:46 61 22 84/56 (65) 100 06/15/24 08:31 60 20 93/62 (72) 100 06/15/24 08:16 59 20 93/59 (70) 100 06/15/24 08:01 63 26 103/53 (70) 100 06/15/24 08:00 100 Ventilator+ 35 06/15/24 07:46 60 21 109/74 (86) 100 06/15/24 07:31 60 17 113/78 (90) 100 06/15/24 07:16 59 20 116/75 (89) 100 06/15/24 07:01 70 29 152/66 (94) 98 06/15/24 06:55 69 35 06/15/24 06:54 63 20 06/15/24 06:31 61 18 112/81 (91) 99 06/15/24 06:16 58 16 117/78 (91) 99 06/15/24 06:01 60 22 114/78 (90) 99 LABS: Laboratory: Test 06/15/24 12:37 06/15/24 09:51 06/15/24 07:45 06/15/24 03:53 Range/Units Whole Blood Glucose 140 H 70-110 MG/DL Lactic Acid Level 1.5 0.8-2.5 mmol/L C-Reactive Protein, Quantitative 84.00 H 0.5-3.0 mg/L Procalcitonin 4.79 H 0.05-0.5 ng/mL Blood Gas Specimen Type Arterial Arterial Blood pH 7.436 7.350-7.450 Arterial Blood Partial Pressure CO2 33 L 35-48 mmHg Arterial Blood Partial Pressure O2 114.8 H 83.0-108.0 mmHg Arterial Blood HCO3 21.5 21.0-28.0 mmol/L Arterial Blood Oxygen Saturation 98.4 H 94.0-98.0 % Arterial Blood Base Excess -1.8 -2.0-3.0 mmol/L Blood Gas Temperature 37.0 35.5-37.0 CELSIUS Blood Gas Respiration Rate 12.0 min. Blood Gas Vent Mode AC ROOM AIR FiO2 35.0 % Blood Gas Tidal Volume 425 ml Blood Gas PEEP 5 cm H2O Blood Gas Specimen Comment RR, SANDRA,RN White Blood Count 15.5 #H 4.8-10.8 K/uL Red Blood Count 2.85 L 4.50-6.20 MIL/uL Hemoglobin 10.3 L 14.0-18.0 g/dL Hematocrit 30.6 L 42-54 % Mean Corpuscular Volume 107.4 H 79-99 fL Mean Corpuscular Hemoglobin 36.1 H 27.0-33.0 pg Mean Corpuscular Hemoglobin Concent 33.7 32.0-36.0 g/dL Red Cell Distribution Width 13.0 11.0-15.5 % Platelet Count 78 L 130-400 K/uL Mean Platelet Volume 14.3 H 7.5-10.5 fL Immature Granulocyte % (Auto) 1.5 H 0-1 % Neutrophils (%) (Auto) 73.7 40.0-77.0 % Lymphocytes (%) (Auto) 9.9 L 21.0-51.0 % Monocytes (%) (Auto) 13.7 H 3.0-13.0 % Eosinophils (%) (Auto) 1.0 0.0-8.0 % Basophils (%) (Auto) 0.2 0.0-5.0 % Neutrophils # (Auto) 11.4 H 1.8-7.7 K/uL Lymphocytes # (Auto) 1.5 1.0-4.8 K/uL Monocytes # (Auto) 2.1 H 0.1-1.0 K/uL Eosinophils # (Auto) 0.15 0.00-0.70 K/uL Basophils # (Auto) 0.03 0.00-0.20 K/uL Absolute Immature Granulocyte (auto 0.24 0-1 K/uL Nucleated Red Blood Cells 0.4 H 0.0-0.19 % Sodium Level 146 H 136-145 mmol/L Potassium Level 3.7 3.5-5.1 mmol/L Chloride Level 111 101-111 mmol/L Carbon Dioxide Level 27 21-32 mmol/L Blood Urea Nitrogen 39 H 7-18 mg/dL Creatinine 1.2 0.5-1.3 mg/dL Glomerular Filtration Rate Calc 71 >90 mL/min Random Glucose 193 H 70-105 mg/dL Total Calcium 7.5 L 8.5-10.1 mg/dL Magnesium Level 2.00 1.80-2.40 mg/dL Total Bilirubin 2.8 H 0.2-1.0 mg/dL Aspartate Amino Transf (AST/SGOT) 35 10-37 U/L Alanine Aminotransferase (ALT/SGPT) 14 12-78 U/L Alkaline Phosphatase 77 50-136 U/L Total Protein 5.2 L 6.0-8.3 g/dL Albumin 2.0 L 3.5-5.0 g/dL Test 06/14/24 17:02 06/13/24 20:36 Range/Units Vitamin B12 Level 3636 H 193-986 pg/mL Vitamin D 25-Hydroxy 15.4 30.0-100.0 ng/mL Vancomycin Level Trough 11.1 # 10.0-20.0 UG/ML Current Medications Medications (Trade) Dose Ordered Sig/Quan Route PRN Reason Start Time Stop Time Status Last Admin Dose Admin Acetaminophen (TYLenol 500MG TAB) 500 mg Q6H PRN PO TEMP < 101.1 AND/OR HEADACHE 06/09/24 18:00 07/09/24 17:59 06/14/24 17:35 500 MG Albumin Human 100 ml @ 50 mls/hr AD IV 06/12/24 11:00 06/14/24 10:59 DC 06/12/24 13:30 50 MLS/HR Artificial Tears (Artificial Tears) 1 DROP OR AD Q8H OU 06/09/24 09:00 07/09/24 08:59 06/15/24 08:21 1 DROP Cefepime HCl (MAXipime 2 gm vial) 2 gm Q12H IVPB 06/11/24 05:00 06/19/24 08:59 06/15/24 05:00 2 GM Cefepime HCl (MAXipime 2 gm vial) 2 gm Q8H IVPB 06/09/24 09:00 06/10/24 19:49 DC 06/10/24 16:44 2 GM Chlorhexidine Gluconate (Peridex) 15 ml Q8H MM 06/09/24 09:00 06/23/24 08:59 06/15/24 08:20 15 ML Dexmedetomidine/ Sodium Chloride (PRECEdex 400MCG/ 100ML-NS) 400 mcg PROTOCOL IV 06/11/24 20:30 07/11/24 20:29 06/15/24 09:09 400 MCG Dextrose/Sodium Chloride 1,000 ml @ 0 mls/hr AD IV 06/09/24 10:00 06/11/24 13:29 DC Fentanyl Citrate 100 ml @ 2.5 mls/hr PROTOCOL IV 06/09/24 06:30 06/12/24 13:28 DC 06/11/24 21:06 2.5 MLS/HR Folic Acid (FolVITE 5 MG/ML VIAL) 1 mg DAILY IV 06/09/24 18:00 07/09/24 17:59 06/15/24 09:17 1 MG Furosemide (LASix 20MG VIAL) 20 mg DAILY IV 06/13/24 09:00 06/13/24 09:20 DC 06/13/24 07:59 20 MG Furosemide (LASix 20MG VIAL) 20 mg Q12H IV 06/09/24 12:00 06/09/24 11:26 DC Furosemide (LASix 20MG VIAL) 20 mg Q6H6 IV 06/09/24 12:00 06/12/24 07:38 DC 06/12/24 06:46 20 MG Furosemide (LASix 20MG VIAL) 40 mg Q12H IV 06/12/24 08:00 06/12/24 14:58 DC 06/12/24 08:16 40 MG Heparin Sodium/ Dextrose 250 ml @ 0 mls/hr PROTOCOL IV 06/09/24 03:30 06/09/24 09:45 DC 06/09/24 03:31 10.78 MLS/HR Insulin Human Regular (humuLIN R 100 UNIT/ML 3ML) INSULIN SLIDING SCAL... Q6H6 SQ 06/11/24 12:00 06/13/24 11:22 DC 06/13/24 06:45 6 UNIT Insulin Human Regular (humuLIN R 100 UNIT/ML 3ML) INSULIN SLIDING SCAL... Q6H6 SQ 06/13/24 12:00 07/13/24 11:59 06/15/24 06:53 6 UNIT Insulin Human Regular 100 unit/ Sodium Chloride 101 ml @ 0 mls/hr PROTOCOL IV 06/09/24 10:00 06/11/24 13:29 DC 06/09/24 11:41 1 MLS/HR Ipratropium Sutter (AtrovENT UD) 0.5 MG [id number] 06/14/24 14:00 07/14/24 13:59 06/15/24 10:33 0.5 MG Lactated Ringer's 1,000 ml @ 50 mls/hr Q20H IV 06/13/24 09:30 06/13/24 14:44 DC 06/13/24 11:18 50 MLS/HR Lactated Ringer's 1,000 ml @ 75 mls/hr [id number] IV 06/15/24 11:00 07/15/24 10:59 06/15/24 09:57 75 MLS/HR Lactated Ringer's (Lactated Ringers 1000ml) 500 ml BOLUS IV 06/15/24 10:00 06/15/24 12:31 DC 06/15/24 10:04 500 ML Lactulose (Constulose 20gm/ 30ml Udcup) 20 gm DAILY PO 06/12/24 09:00 07/12/24 08:59 06/15/24 08:21 20 GM Levofloxacin/ Dextrose (LEvaquIN 750 MG/ D5W 150 ML) 750 mg Q24H IV 06/09/24 06:30 06/09/24 08:29 DC Lorazepam (AtiVAN) 2 mg Q4H PRN IVP ALCOHOL WITHDRAWAL PROTOCOL 06/09/24 18:00 06/16/24 17:59 Lorazepam (AtiVAN) 4 mg Q2H PRN IVP ALCOHOL WITHDRAWAL PROTOCOL 06/09/24 18:00 06/16/24 17:59 Magnesium Sulfate 50 ml @ 0 mls/hr PROTOCOL IV 06/09/24 10:00 06/11/24 13:29 DC 06/11/24 07:13 25 MLS/HR Magnesium Sulfate 50 ml @ 0 mls/hr PROTOCOL PRN IV OTHER [SEE ORDER COMMENTS] 06/09/24 01:00 06/09/24 06:50 DC 06/09/24 01:03 25 MLS/HR Magnesium Sulfate 50 ml @ 0 mls/hr PROTOCOL PRN IV OTHER [SEE ORDER COMMENTS] 06/09/24 07:00 06/09/24 08:35 DC Magnesium Sulfate 50 ml @ 0 mls/hr PROTOCOL PRN IV low magnesium 06/09/24 08:30 06/09/24 09:46 DC Magnesium Sulfate 50 ml @ 0 mls/hr PROTOCOL PRN IV MAGNESIUM PROTOCOL 06/11/24 15:00 07/11/24 14:59 06/13/24 08:01 25 MLS/HR Metronidazole/ Sodium Chloride 100 ml @ 100 mls/hr Q8H6 IVPB 06/09/24 14:00 06/19/24 13:59 06/15/24 05:00 100 MLS/HR Midazolam HCl (Midazolam 100mg-0.9% NS 100ml) 100 ml PROTOCOL IV 06/09/24 15:30 06/12/24 10:33 DC 06/11/24 08:05 100 ML Midodrine (PROAMatine 5 MG TABLET) 10 mg TID PO 06/11/24 14:00 06/14/24 10:06 DC 06/14/24 07:47 10 MG Midodrine (PROAMatine 5 MG TABLET) 15 mg TID PO 06/14/24 14:00 07/14/24 13:59 06/15/24 08:21 15 MG Multivitamins Therapeutic (Multivitamin Tablet) 1 tab DAILY PO 06/10/24 09:00 07/10/24 08:59 06/15/24 08:21 1 TAB Norepinephrine Bitartrate (Norepineph 16 Mg/250ml NS Premix) HIGH ALERT Init... PROTOCOL IV 06/09/24 12:30 07/09/24 12:29 06/13/24 19:21 16 MG Octreotide Acetate 1250 mcg/ Sodium Chloride 250 ml @ 0 mls/hr PROTOCOL IV 06/09/24 08:30 06/13/24 13:43 DC 06/11/24 13:17 5 MLS/HR Octreotide Acetate 500 mcg/ Sodium Chloride 100 ml @ 0 mls/hr PROTOCOL IV 06/09/24 04:30 06/09/24 08:13 DC 06/09/24 05:50 5 MLS/HR Ondansetron HCl (zoFRAN 4MG INJ) 4 mg Q4H PRN IV NAUSEA 06/09/24 18:00 07/09/24 17:59 Pantoprazole Sodium (PROTonix 40MG INJ) 40 mg BID IVP 06/11/24 21:00 07/11/24 20:59 06/15/24 08:20 40 MG Pantoprazole Sodium 80 mg/ Sodium Chloride 100 ml @ 10 mls/hr Q10H IVP 06/09/24 04:00 06/11/24 13:24 DC 06/11/24 08:04 10 MLS/HR Pharmacy Profile Note (Pharmacy Communication) 1 each PROTOCOL PRN MISC ETOH Withdrawal Score changes 06/09/24 18:00 06/16/24 17:59 Phenylephrine HCl 10 mg/Sodium Chloride 250 ml @ 0 mls/hr PROTOCOL PRN IV PROTOCOL 06/09/24 07:00 07/09/24 06:59 06/09/24 09:27 96 MLS/HR Potassium Chloride 20 meq/ Sodium Chloride 1,010 ml @ 0 mls/hr PROTOCOL IV 06/09/24 10:00 06/11/24 13:29 DC Potassium Chloride/Dextrose/ Sod Cl 1,000 ml @ 0 mls/hr AD IV 06/09/24 10:00 06/11/24 13:29 DC Potassium Chloride 100 ml @ 50 mls/hr AD PRN IV POTASSIUM PROTOCOL 06/09/24 07:00 06/09/24 08:34 DC Potassium Chloride 100 ml @ 50 mls/hr AD PRN IV POTASSIUM PROTOCOL 06/09/24 08:30 07/09/24 08:29 06/13/24 16:38 50 MLS/HR Potassium Chloride 100 ml @ 100 mls/hr AD PRN IV POTASSIUM PROTOCOL 06/09/24 08:30 06/09/24 08:41 DC Potassium Chloride (K-Dur/Klor-Con 20meq) 20 meq AD PRN PO POTASSIUM PROTOCOL 06/09/24 08:30 07/09/24 08:29 Potassium Chloride (KCl 10% Elixir 20meq/15ml) 20 meq AD PRN PO POTASSIUM PROTOCOL 06/09/24 08:30 07/09/24 08:29 06/14/24 10:46 20 MEQ Propofol (DIPRivan 1000MG/ 100ML) 1,000 mg PROTOCOL PRN IV SEDATION 06/14/24 17:30 07/14/24 17:29 Sodium Bicarbonate 150 meq/Dextrose 1,150 ml @ 150 mls/hr Q7H40M IVP 06/09/24 00:30 06/09/24 18:11 DC 06/09/24 01:18 150 MLS/HR Sodium Chloride 1,000 ml @ 200 mls/hr PROTOCOL IV 06/09/24 10:00 06/11/24 13:29 DC Thiamine HCl (Vitamin B-1) 300 mg DAILY IV 06/09/24 18:00 07/09/24 17:59 06/15/24 08:20 300 MG Vancomycin HCl 250 ml @ 125 mls/hr Q12H IV 06/09/24 22:00 06/10/24 21:50 DC 06/10/24 10:06 125 MLS/HR Vancomycin HCl 250 ml @ 125 mls/hr Q24H IV 06/11/24 22:00 06/12/24 21:39 DC 06/11/24 21:10 125 MLS/HR Vancomycin HCl 250 ml @ 125 mls/hr Q24H IV 06/13/24 22:00 06/23/24 21:59 06/14/24 21:26 125 MLS/HR Vancomycin HCl (Vancomycin Protocol) 1 each AD IV 06/09/24 09:00 06/23/24 08:59 Vasopressin 20 units/Sodium Chloride 100 ml @ 0 mls/hr PROTOCOL IV 06/09/24 07:00 07/09/24 06:59 06/09/24 08:20 9 MLS/HR Wound Care/ Dressing Products (Venelex Ointment) 1 APPL TID TP 06/14/24 21:00 07/14/24 20:59 06/15/24 08:21 1 GM DIAGNOSTICS / RADIOLOGY: [ ] ASSESSMENT: Acute respiratory failure POA Septic shock, resolving Bilateral lower lobe bacterial pneumonia, POA Acute hepatic encephalopathy, POA Combined alcoholic and fatty liver cirrhosis, POA MELD Score 19 points (19.6% estimated three month mortality) NSTEMI type 2, 2/2 supply and demand mismatch POA Acute on chronic Stage I Diastolic Heart Failure w/ EF of 40% POA Elevated troponin R/O ACS POA Elevated D-dimer of 3989, negative for DVT, Well score for PE 3 ( Moderate score) Metabolic acidosis POA Ascites Hepatomegaly Acute blood loss anemia POA Acute upper and lower GI bleed, POA Acute thrombocytopenia POA Acute on chronic diastolic CHF POA Hyperglycemia POA Hypomagnesemia POA Positive for THC POA Active alcohol drinker POA Acute complicated cystitis POA Hypertension POA acute GI bleed POA s/p EGD 06/13/24 non bleeding ulcer PLAN: Continue ICU admission Appreciate critical Care team, patient currently intubated, on AC mode Patient will continued to be NPO Feeding tube per dietary Patient continue IV antibiotics on vancomycin, cefepime Flagyl CT head brain without contrast showed atrophy Chest x-ray cleared stable Continue to monitor electrolytes and replete as necessary Appreciate recommendations from Cardiology, elevated troponin is likely in the setting of acute respiratory failure and suspected GI bleed, no plans for invasive cardiac workup at this time. Furosemide adjusted to 40 mg IV q.12 hours We will repeat labs in the morning Critical care time: Spent 35 minutes of critical care time with the patient. Reviewed the lab work, reconciled and updated patient's medications, and coordinated plan of care in ICU. Code Status: DNR Disposition: TBD Prognosis: Guarded NEURO: Minimize central acting medications as possible. Fall Precautions. Well lighted room through the day and minimize interruptions through the night to prevent acute delirium. Lactulose enema and recheck ammonia in am PULMONARY: Supplemental 02 as needed Titrate Fio2 to keep Spo2 > or = 90% DuoNebs and CPT as needed IS hourly while awake for pulmonary hygiene Out of bed to chair as tolerated VAP Bundle Vent/BIPAP Settings: Assist-control volume control with tidal volume of 425 respiratory rate of 14 FiO2 45% and PEEP of 5. Daily SBTs. CARDIOVASCULAR: Follow hemodynamics. Titrate vasopressor to keep MAP >65 or systolic blood pressure >95mmHg Cardiac monitoring GI & NUTRITION: Continue nutritional support Aspirations precautions Prokinetic agents and laxatives as needed KIDNEYS & ELECTROLYTES: Strict monitoring of intake and output Daily weights Avoid nephrotoxic agents Monitor electrolytes and replace as needed Goal urine output of 30mL/hr or 0.5mL/kg/hr Monitor electrolytes and replace accordingly ENDOCRINE: Maintain blood glucose between 100-180 at all times. Insulin sliding scale for blood glucose management Hypoglycemia and hyperglycemia protocol in place INFECTIOUS DISEASE: Trend temperature, WBC and procalcitonin level Follow cultures, deescalate antibiotics as soon as possible. Panculture if new onset fever HEMATOLOGY & COAGULATION: Monitor H&H. Keep Hgb > 7 Transfuse 1 unit of PRBC for Hgb < 7 Transfuse 1 pack of platelets of platelets < 20, 000 Watch for any signs and symptoms of bleeding SKIN: Pressure ulcer prevention per facility protocol Specialty mattress as needed ] ATTESTATION BY PHYSICIAN I have seen and examined the patient. I reviewed the documentation, medical decision making, and treatment plan as noted by the mid-level provider above. I agree with the findings and plan of care. January Byrd MD, KATARZYNA B APRN Jun 15, 2024 13:51
--- NOTE | 2024-06-15 15:37 | NUR ---
1510 PATIENT PLACED ON CPAP NOW 1538. NOT TOLERATING CPAP. RR 51, HR 141. PUT HIM BACK ON AC. HEMAL SANTIAGO MADE AWARE.
--- NOTE | 2024-06-15 15:55 | NUR ---
Nutrition f/u Reviewed labs, notes, and medications. Pt on b-complex, IV abx, intubated, off sedation, hypernatremia 146, hyperglycemia 140, elevated bun 39, Cr WNL, hypocalcemia 7.5, vit. D 15.4, elevated b12, elevated CRP, elevated bilirubin 2.8 per chart review. Last bM 06/14/24, liquid loose BM, OGT in place, on Vital 1 HP in the meantime, right buttock ulcer, mild pitting per nursing. Observed Vital 1.0 HP @ 25 ml/hr x 22 hrs, MAP @40, residual @700 ml during visit. Trickle feed provides 30% of patients kcal needs. Continue trickle feeds of Vital AF 1.0 @ 25 mL/hr. x 22 hours. Provides: 550 kcal, 22 gm pro, 1963 ml per day Continue trickle feed of Vital 1.0 until Vital AF 1.2 is available. Use same rate of Vital 1.2 @ 25 ml/hr x 22 hrs once formula available, would provide 41% of patients caloric needs, 53 % of protein needs. If residuals more than 500 ml stop tube feed for 2 hours. If repeated stop tube feed and contact MD per protocol Recommendations: Provide Vital 1.0 @ 25 mL/hr x 22 hrs + 250 mL Q4H Provides: 550 kcals, 22 g protein, 1958.7 ml per day -Provide goal rate of Vital AF 1.2 @ 50 ml/hr x 22 hrs + 250 ml Q4H once medically feasible Provides:1452 kcal, 91 gm pro, 2481 ml per day Monitor BM Monitor electrolytes Replenish electrolytes as protocol Monitor wts. Reweigh as available, Provide vit. D per vit. D 15 -Consider probiotic qd per liquid loose BM if medically feasible Monitor TF tolerance + need for TF adjustments. Monitor residuals. Residuals more than 500 ml stop tube feed for 2 hours. If repeated stop tube feed and contact MD. Monitor care goals RD to follow + available for consultation by protocol. Addendum: 06/15/24 at [address] Amended: Links added.
[2024-06-16] VITALS (78 sets, daily range): BP systolic 76–142; BP diastolic 32–82; PULSE 60–82; RESP 15–33; TEMP 98.3–98.7; O2SAT 97–100
[2024-06-16 04:17] LABS: BASOPHILS # (AUTO) 0.04 K/uL (0.00-0.20); BASOPHILS % (AUTO) 0.2 % (0.0-5.0); EOSINOPHILS % (AUTO) 0.6 % (0.0-8.0); HEMATOCRIT 28.2 % (42-54); IMMATURE GRANULOCYTE ABSOLUTE 0.27 K/uL (0-1); LYMPHOCYTES # (AUTO) 1.4 K/uL (1.0-4.8); LYMPHOCYTES % (AUTO) 7.6 % (21.0-51.0); MEAN CORPUSCULAR HEMOGLOBIN 35.1 pg (27.0-33.0); MEAN CORPUSCULAR VOLUME 106.4 fL (79-99); MONOCYTES # (AUTO) 1.5 K/uL (0.1-1.0); MONOCYTES % (AUTO) 8.3 % (3.0-13.0); NEUTROPHILS # (AUTO) 14.8 K/uL (1.8-7.7); NEUTROPHILS % (AUTO) 81.8 % (40.0-77.0); NUCLEATED RED BLOOD CELLS 0.2 % (0.0-0.19); PLATELET COUNT (AUTO) 97 K/uL (130-400); RED BLOOD CELL COUNT(AUTO) 2.65 MIL/uL (4.50-6.20); RED CELL DISTRIBUTION WIDTH 13.1 % (11.0-15.5); WHITE BLOOD COUNT (AUTO) 18.1 K/uL (4.8-10.8)
[2024-06-16 04:27] LABS: ALBUMIN 1.8 g/dL (3.5-5.0); CREATININE 1.2 mg/dL (0.5-1.3); MAGNESIUM 1.7 mg/dL (1.80-2.40); POTASSIUM 3.4 mmol/L (3.5-5.1); TOTAL PROTEIN, SERUM 4.8 g/dL (6.0-8.3)
[2024-06-16 05:01] LABS: WBC MORPHOLOGY CONSISTENT W/DIFF
--- NOTE | 2024-06-16 07:13 | NUR ---
report given to monserrat reynoso
--- NOTE | 2024-06-16 07:13 | NUR ---
report given to monserrat reynoso
--- NOTE | 2024-06-16 08:16 | PN ---
[facility] CARDIOLOGY PROGRESS NOTE Date Patient Seen: Jun 16, 2024 Time of Visit: 08:15 Interval History: Patient seen in ICU Remains intubated Physical Examination: GENERAL: [No acute distress.] LUNGS: [rales bilaterally, no distress, intubated] HEART: [Normal rate and rhythm. .] VASC: [Peripheral pulses +2 bilaterally.] SKIN: [warm, dry, distal extremities well perfused NEURO: [intubated. moves spontaneously. does not follow commands. Laboratory: [ ] Hematology Labs: Test 06/16/24 03:50 Range/Units White Blood Count 18.1 H 4.8-10.8 K/uL Red Blood Count 2.65 L 4.50-6.20 MIL/uL Hemoglobin 9.3 L 14.0-18.0 g/dL Hematocrit 28.2 L 42-54 % Mean Corpuscular Volume 106.4 H 79-99 fL Mean Corpuscular Hemoglobin 35.1 H 27.0-33.0 pg Mean Corpuscular Hemoglobin Concent 33.0 32.0-36.0 g/dL Red Cell Distribution Width 13.1 11.0-15.5 % Platelet Count 97 L 130-400 K/uL Mean Platelet Volume 13.9 H 7.5-10.5 fL Immature Granulocyte % (Auto) 1.5 H 0-1 % Neutrophils (%) (Auto) 81.8 H 40.0-77.0 % Lymphocytes (%) (Auto) 7.6 L 21.0-51.0 % Monocytes (%) (Auto) 8.3 3.0-13.0 % Eosinophils (%) (Auto) 0.6 0.0-8.0 % Basophils (%) (Auto) 0.2 0.0-5.0 % Neutrophils # (Auto) 14.8 H 1.8-7.7 K/uL Lymphocytes # (Auto) 1.4 1.0-4.8 K/uL Monocytes # (Auto) 1.5 H 0.1-1.0 K/uL Eosinophils # (Auto) 0.10 0.00-0.70 K/uL Basophils # (Auto) 0.04 0.00-0.20 K/uL Absolute Immature Granulocyte (auto 0.27 0-1 K/uL Nucleated Red Blood Cells 0.2 H 0.0-0.19 % White Cell Morphology Comment CONSISTENT W/DIFF Red Blood Cell Morphology See comments Chemistry Labs: Test 06/16/24 05:50 06/16/24 03:50 06/15/24 09:51 06/14/24 17:02 Range/Units Whole Blood Glucose 217 #H 70-110 MG/DL Sodium Level 144 136-145 mmol/L Potassium Level 3.4 L 3.5-5.1 mmol/L Chloride Level 110 101-111 mmol/L Carbon Dioxide Level 23 21-32 mmol/L Blood Urea Nitrogen 34 H 7-18 mg/dL Creatinine 1.2 0.5-1.3 mg/dL Glomerular Filtration Rate Calc 71 >90 mL/min Random Glucose 189 H 70-105 mg/dL Total Calcium 7.4 L 8.5-10.1 mg/dL Magnesium Level 1.70 L 1.80-2.40 mg/dL Total Bilirubin 3.0 H 0.2-1.0 mg/dL Aspartate Amino Transf (AST/SGOT) 45 H 10-37 U/L Alanine Aminotransferase (ALT/SGPT) 15 12-78 U/L Alkaline Phosphatase 96 50-136 U/L Total Protein 4.8 L 6.0-8.3 g/dL Albumin 1.8 L 3.5-5.0 g/dL Lactic Acid Level 1.5 0.8-2.5 mmol/L C-Reactive Protein, Quantitative 84.00 H 0.5-3.0 mg/L Procalcitonin 4.79 H 0.05-0.5 ng/mL Vitamin B12 Level 3636 H 193-986 pg/mL Vitamin D 25-Hydroxy 15.4 30.0-100.0 ng/mL Impression and Plan: Type II OH Acute on chronic diastolic congestive heart failure HFrEF 40% Acute respiratory failure, community acquired pneumonia, s/p intubation Pulmonary edema Suspected GI bleed - Upper endoscopy did not reveal active bleeding or varices and sandostatin was discontinued. Iron deficiency anemia Neutropenia improved/Thrombocytopenia persists, possible cirrhosis - [place] [address] during this hospitalization. Electrolyte derangement, hypokalemia Elevated D-dimer of 3989 HTN Positive for THC Metabolic acidosis POA Hyperglycemia POA Hypomagnesemia POA Active alcohol drinker POA Patient continues to be hypotensive requiring midodrine therapy. I do not have a strong indication for patient to be placed on aspirin therapy given his risk of bleeding. His left ventricular systolic function is reduced, however no confirmed diagnosis of coronary artery disease/ischemic cardiomyopathy. When patient is extubated and shows improvement, I think reasonable to obtain repeat limited echo to re-evaluate the LVEF. Pending patient's recovery from acute illness, can consider noninvasive cardiac stress testing to evaluate for ischemia. TOM THOMPSON DO Jun 16, 2024 08:16
--- NOTE | 2024-06-16 08:32 | HMCIMG ---
Exam Type: CHEST 1VW Clinical Information: Intubated/PNA Comparison: None Findings: Pulmonary pattern is as before. No worrisome interval changes have taken place. Impression: Stable exam.
--- NOTE | 2024-06-16 10:00 | PN ---
[facility] PROGRESS NOTE Date of Service: Jun 16, 2024 Time of Service: 09:[address] Byrd SUBJECTIVE: [06/12/24 53-year-old male who was admitted due to persistent nausea vomiting, patient also was noted with metabolic acidosis initially was placed on BiPAP support and patient decompensated immediately and was intubated. He is being managed by critical care team. He continues to be intubated on AC mode. Patient is still on pressor support. Continues with IV antibiotics, was started with furosemide 20 mg IV q.12 hours today. We will continue to monitor closely. Patient is still currently intubated. 06/13/24 Pt was seen by [employer] MEMBER and physician during rounding in room 206. Family member/sister at the bedside. Pt is s/p EGD today which showed non bleeding u lcers. CT Head/Brain negative. Per GI we can restart tube feedings. Pt off sedation . We will continue monitoring pt. AM labs 06/14/24 patient was seen by [employer] MEMBER and physician during rounding. Sister at the bedside. CT head brain is negative. Chest x-ray stable exam. Patient was already started on feeding tubes per dietary recommendations. Patient continues to be in ICU. Patient is off pressors hemodynamically stable. Patient is saturating 94% with FiO2 of 45 on vent with a rate of 18, rate on vent of 18 and has been afebrile. Patient not fully awakened and does not follow commands. Off sedation day 2. Labs reviewed. We will follow GI recommendation in regarding possible endoscopic exam. 06/15/24 patient was seen by [employer] MEMBER and physician during rounding in room 206. Sister at the bedside updated records to further plan. WBC today is 15.5 which has a significant increase from the prior day which was 9.6. Blood culture negative x2 for the past four days. Sputum final culture negative. Final urine culture negative. Chest x-ray stable exam. Head CT showed atrophy and chronic small- vessel ischemic changes. Patient was weaned off sedation and became very agitated overnight. The patient remains intubated and mechanically vented. ACVC rate of 12, TV 425, peep of 5 and FiO2 35%. Currently patient is off Levophed and continues to be on midodrine. Patient has a Gomez catheter in place abran color of the urine. We will continue to monitor patient in the meantime. A.m. labs 06/16/24 patient was seen by nurse practitioner physician during rounding in room 206. Family members at the bedside. Patient was evaluated by wood casket assembler and at this moment patient continues to be hypotensive requiring midodrine therapy. Aerospace Mechanic does not want to place patient on aspirin therapy given the risk of bleeding.His left ventricular systolic function is reduced, however no confirmed diagnosis of coronary artery disease/ischemic cardiomyopathy. When patient is extubated and shows improvement, then they would like to repeat little bit echo to re-evaluate the LVEF. Precedex was resumed and is currently RASS score of negative two.ACVC rate of 12, TV 425, peep of 5 and FiO2 35%. On the monitor, the patient is hypotensive systolic in the 80s. The patient remains with Gomez catheter in place abran color urine. We will continue to monitor patient in the meantime. A.m. labs REVIEW OF SYSTEMS Pt intubated PHYSICAL EXAM GENERAL APPEARANCE: The patient is awake, alert, and oriented, in no acute cardiopulmonary distress. NEUROLOGICAL: Cranial nerves II-XII grossly intact. Motor is 5/5 in bilateral upper and lower extremities proximal to distal. No sensory deficits. HEENT: Face is symmetric. Pupils are equal and reactive. Extraocular movements are intact. NECK: Supple. No JVD. No thyromegaly. No submental, submandibular, pre- /postauricular, occipital or supraclavicular lymphadenopathy. CHEST: Normal chest expansion. No Telemetry. LUNGS: Decreased bilateral breath sounds on the lower bases per auscultation CARDIOVASCULAR: Regular. S1 and S2 normal. No appreciable rubs, murmurs or gallops. ABDOMEN: Soft, nontender, and nondistended. There is no rebound, voluntary guarding, or rigidity. : Deferred. Gomez. EXTREMITIES: Non-edematous and not cyanotic. No clubbing. Good capillary refill. SKIN: No skin breakdown. Vital Signs (last 8hr) Date Time Temp Pulse Resp B/P (MAP) Pulse Ox O2 Delivery O2 Flow Rate FiO2 06/16/24 09:42 67 35 06/16/24 07:50 67 35 06/16/24 06:50 69 17 06/16/24 06:48 69 35 06/16/24 05:16 72 28 93/56 (68) 98 06/16/24 05:01 73 26 86/55 (65) 96 06/16/24 04:46 72 25 104/62 (76) 97 06/16/24 04:31 73 23 106/64 (78) 97 06/16/24 04:16 75 26 108/64 (79) 98 06/16/24 04:01 98.8 74 24 113/65 (81) 97 06/16/24 04:00 35 06/16/24 04:00 98 Ventilator+ 35 06/16/24 03:46 81 23 113/69 (84) 97 06/16/24 03:31 79 25 104/68 (80) 97 06/16/24 03:16 78 22 106/63 (77) 97 06/16/24 03:04 79 35 06/16/24 03:01 76 25 112/64 (80) 97 06/16/24 02:47 81 19 06/16/24 02:46 75 25 122/68 (86) 99 06/16/24 02:31 81 21 109/65 (80) 96 06/16/24 02:16 81 16 115/71 (86) 97 06/16/24 02:01 79 30 126/76 (93) 98 LABS: Laboratory: Test 06/16/24 05:50 06/16/24 03:50 06/15/24 21:20 06/15/24 09:51 Range/Units Whole Blood Glucose 217 #H 70-110 MG/DL White Blood Count 18.1 H 4.8-10.8 K/uL Red Blood Count 2.65 L 4.50-6.20 MIL/uL Hemoglobin 9.3 L 14.0-18.0 g/dL Hematocrit 28.2 L 42-54 % Mean Corpuscular Volume 106.4 H 79-99 fL Mean Corpuscular Hemoglobin 35.1 H 27.0-33.0 pg Mean Corpuscular Hemoglobin Concent 33.0 32.0-36.0 g/dL Red Cell Distribution Width 13.1 11.0-15.5 % Platelet Count 97 L 130-400 K/uL Mean Platelet Volume 13.9 H 7.5-10.5 fL Immature Granulocyte % (Auto) 1.5 H 0-1 % Neutrophils (%) (Auto) 81.8 H 40.0-77.0 % Lymphocytes (%) (Auto) 7.6 L 21.0-51.0 % Monocytes (%) (Auto) 8.3 3.0-13.0 % Eosinophils (%) (Auto) 0.6 0.0-8.0 % Basophils (%) (Auto) 0.2 0.0-5.0 % Neutrophils # (Auto) 14.8 H 1.8-7.7 K/uL Lymphocytes # (Auto) 1.4 1.0-4.8 K/uL Monocytes # (Auto) 1.5 H 0.1-1.0 K/uL Eosinophils # (Auto) 0.10 0.00-0.70 K/uL Basophils # (Auto) 0.04 0.00-0.20 K/uL Absolute Immature Granulocyte (auto 0.27 0-1 K/uL Nucleated Red Blood Cells 0.2 H 0.0-0.19 % White Cell Morphology Comment CONSISTENT W/DIFF Red Blood Cell Morphology See comments Sodium Level 144 136-145 mmol/L Potassium Level 3.4 L 3.5-5.1 mmol/L Chloride Level 110 101-111 mmol/L Carbon Dioxide Level 23 21-32 mmol/L Blood Urea Nitrogen 34 H 7-18 mg/dL Creatinine 1.2 0.5-1.3 mg/dL Glomerular Filtration Rate Calc 71 >90 mL/min Random Glucose 189 H 70-105 mg/dL Total Calcium 7.4 L 8.5-10.1 mg/dL Magnesium Level 1.70 L 1.80-2.40 mg/dL Total Bilirubin 3.0 H 0.2-1.0 mg/dL Aspartate Amino Transf (AST/SGOT) 45 H 10-37 U/L Alanine Aminotransferase (ALT/SGPT) 15 12-78 U/L Alkaline Phosphatase 96 50-136 U/L Total Protein 4.8 L 6.0-8.3 g/dL Albumin 1.8 L 3.5-5.0 g/dL Vancomycin Level Trough 12.9 10.0-20.0 UG/ML Lactic Acid Level 1.5 0.8-2.5 mmol/L C-Reactive Protein, Quantitative 84.00 H 0.5-3.0 mg/L Procalcitonin 4.79 H 0.05-0.5 ng/mL Test 06/15/24 07:45 06/14/24 17:02 Range/Units Blood Gas Specimen Type Arterial Arterial Blood pH 7.436 7.350-7.450 Arterial Blood Partial Pressure CO2 33 L 35-48 mmHg Arterial Blood Partial Pressure O2 114.8 H 83.0-108.0 mmHg Arterial Blood HCO3 21.5 21.0-28.0 mmol/L Arterial Blood Oxygen Saturation 98.4 H 94.0-98.0 % Arterial Blood Base Excess -1.8 -2.0-3.0 mmol/L Blood Gas Temperature 37.0 35.5-37.0 CELSIUS Blood Gas Respiration Rate 12.0 min. Blood Gas Vent Mode AC ROOM AIR FiO2 35.0 % Blood Gas Tidal Volume 425 ml Blood Gas PEEP 5 cm H2O Blood Gas Specimen Comment RR, SANDRA,RN Vitamin B12 Level 3636 H 193-986 pg/mL Vitamin D 25-Hydroxy 15.4 30.0-100.0 ng/mL Current Medications Medications (Trade) Dose Ordered Sig/Quan Route PRN Reason Start Time Stop Time Status Last Admin Dose Admin Acetaminophen (TYLenol 500MG TAB) 500 mg Q6H PRN PO TEMP < 101.1 AND/OR HEADACHE 06/09/24 18:00 07/09/24 17:59 06/14/24 17:35 500 MG Albumin Human 100 ml @ 50 mls/hr AD IV 06/12/24 11:00 06/14/24 10:59 DC 06/12/24 13:30 50 MLS/HR Artificial Tears (Artificial Tears) 1 DROP OR AD Q8H OU 06/09/24 09:00 07/09/24 08:59 06/16/24 08:50 1 DROP Cefepime HCl (MAXipime 2 gm vial) 2 gm Q12H IVPB 06/11/24 05:00 06/19/24 08:59 06/16/24 05:41 2 GM Cefepime HCl (MAXipime 2 gm vial) 2 gm Q8H IVPB 06/09/24 09:00 06/10/24 19:49 DC 06/10/24 16:44 2 GM Chlorhexidine Gluconate (Peridex) 15 ml Q8H MM 06/09/24 09:00 06/23/24 08:59 06/16/24 08:47 15 ML Dexmedetomidine/ Sodium Chloride (PRECEdex 400MCG/ 100ML-NS) 400 mcg PROTOCOL IV 06/11/24 20:30 07/11/24 20:29 06/16/24 06:38 400 MCG Dextrose/Sodium Chloride 1,000 ml @ 0 mls/hr AD IV 06/09/24 10:00 06/11/24 13:29 DC Fentanyl Citrate 100 ml @ 2.5 mls/hr PROTOCOL IV 06/09/24 06:30 06/12/24 13:28 DC 06/11/24 21:06 2.5 MLS/HR Folic Acid (FolVITE 5 MG/ML VIAL) 1 mg DAILY IV 06/09/24 18:00 07/09/24 17:59 06/15/24 09:17 1 MG Furosemide (LASix 20MG VIAL) 20 mg DAILY IV 06/13/24 09:00 06/13/24 09:20 DC 06/13/24 07:59 20 MG Furosemide (LASix 20MG VIAL) 20 mg Q12H IV 06/09/24 12:00 06/09/24 11:26 DC Furosemide (LASix 20MG VIAL) 20 mg Q6H6 IV 06/09/24 12:00 06/12/24 07:38 DC 06/12/24 06:46 20 MG Furosemide (LASix 20MG VIAL) 40 mg Q12H IV 06/12/24 08:00 06/12/24 14:58 DC 06/12/24 08:16 40 MG Heparin Sodium/ Dextrose 250 ml @ 0 mls/hr PROTOCOL IV 06/09/24 03:30 06/09/24 09:45 DC 06/09/24 03:31 10.78 MLS/HR Insulin Human Regular (humuLIN R 100 UNIT/ML 3ML) INSULIN SLIDING SCAL... Q6H6 SQ 06/11/24 12:00 06/13/24 11:22 DC 06/13/24 06:45 6 UNIT Insulin Human Regular (humuLIN R 100 UNIT/ML 3ML) INSULIN SLIDING SCAL... Q6H6 SQ 06/13/24 12:00 07/13/24 11:59 06/16/24 06:01 8 UNIT Insulin Human Regular 100 unit/ Sodium Chloride 101 ml @ 0 mls/hr PROTOCOL IV 06/09/24 10:00 06/11/24 13:29 DC 06/09/24 11:41 1 MLS/HR Ipratropium [place] (AtrovENT UD) 0.5 MG [id number] IH 06/14/24 14:00 07/14/24 13:59 06/16/24 06:48 0.5 MG Lactated Ringer's 1,000 ml @ 50 mls/hr Q20H IV 06/13/24 09:30 06/13/24 14:44 DC 06/13/24 11:18 50 MLS/HR Lactated Ringer's 1,000 ml @ 75 mls/hr [id number] IV 06/15/24 11:00 07/15/24 10:59 06/16/24 02:11 75 MLS/HR Lactated Ringer's (Lactated Ringers 1000ml) 500 ml BOLUS IV 06/15/24 10:00 06/15/24 12:31 DC 06/15/24 10:04 500 ML Lactulose (Constulose 20gm/ 30ml Udcup) 20 gm DAILY PO 06/12/24 09:00 07/12/24 08:59 06/16/24 08:47 20 GM Levofloxacin/ Dextrose (LEvaquIN 750 MG/ D5W 150 ML) 750 mg Q24H IV 06/09/24 06:30 06/09/24 08:29 DC Lorazepam (AtiVAN) 2 mg Q4H PRN IVP ALCOHOL WITHDRAWAL PROTOCOL 06/09/24 18:00 06/16/24 17:59 Lorazepam (AtiVAN) 4 mg Q2H PRN IVP ALCOHOL WITHDRAWAL PROTOCOL 06/09/24 18:00 06/16/24 17:59 Magnesium Sulfate 50 ml @ 0 mls/hr PROTOCOL IV 06/09/24 10:00 06/11/24 13:29 DC 06/11/24 07:13 25 MLS/HR Magnesium Sulfate 50 ml @ 0 mls/hr PROTOCOL PRN IV OTHER [SEE ORDER COMMENTS] 06/09/24 01:00 06/09/24 06:50 DC 06/09/24 01:03 25 MLS/HR Magnesium Sulfate 50 ml @ 0 mls/hr PROTOCOL PRN IV OTHER [SEE ORDER COMMENTS] 06/09/24 07:00 06/09/24 08:35 DC Magnesium Sulfate 50 ml @ 0 mls/hr PROTOCOL PRN IV low magnesium 06/09/24 08:30 06/09/24 09:46 DC Magnesium Sulfate 50 ml @ 0 mls/hr PROTOCOL PRN IV MAGNESIUM PROTOCOL 06/11/24 15:00 07/11/24 14:59 06/13/24 08:01 25 MLS/HR Metronidazole/ Sodium Chloride 100 ml @ 100 mls/hr Q8H6 IVPB 06/09/24 14:00 06/19/24 13:59 06/16/24 05:41 100 MLS/HR Midazolam HCl (Midazolam 100mg-0.9% NS 100ml) 100 ml PROTOCOL IV 06/09/24 15:30 06/12/24 10:33 DC 06/11/24 08:05 100 ML Midodrine (PROAMatine 5 MG TABLET) 10 mg TID PO 06/11/24 14:00 06/14/24 10:06 DC 06/14/24 07:47 10 MG Midodrine (PROAMatine 5 MG TABLET) 15 mg TID PO 06/14/24 14:00 07/14/24 13:59 06/16/24 08:48 15 MG Multivitamins Therapeutic (Multivitamin Tablet) 1 tab DAILY PO 06/10/24 09:00 07/10/24 08:59 06/16/24 08:49 1 TAB Norepinephrine Bitartrate (Norepineph 16 Mg/250ml NS Premix) HIGH ALERT Init... PROTOCOL IV 06/09/24 12:30 07/09/24 12:29 06/13/24 19:21 16 MG Octreotide Acetate 1250 mcg/ Sodium Chloride 250 ml @ 0 mls/hr PROTOCOL IV 06/09/24 08:30 06/13/24 13:43 DC 06/11/24 13:17 5 MLS/HR Octreotide Acetate 500 mcg/ Sodium Chloride 100 ml @ 0 mls/hr PROTOCOL IV 06/09/24 04:30 06/09/24 08:13 DC 06/09/24 05:50 5 MLS/HR Ondansetron HCl (zoFRAN 4MG INJ) 4 mg Q4H PRN IV NAUSEA 06/09/24 18:00 07/09/24 17:59 Pantoprazole Sodium (PROTonix 40MG INJ) 40 mg BID IVP 06/11/24 21:00 07/11/24 20:59 06/16/24 08:47 40 MG Pantoprazole Sodium 80 mg/ Sodium Chloride 100 ml @ 10 mls/hr Q10H IVP 06/09/24 04:00 06/11/24 13:24 DC 06/11/24 08:04 10 MLS/HR Pharmacy Profile Note (Pharmacy Communication) 1 each PROTOCOL PRN MISC ETOH Withdrawal Score changes 06/09/24 18:00 06/16/24 17:59 Phenylephrine HCl 10 mg/Sodium Chloride 250 ml @ 0 mls/hr PROTOCOL PRN IV PROTOCOL 06/09/24 07:00 07/09/24 06:59 06/09/24 09:27 96 MLS/HR Potassium Chloride 20 meq/ Sodium Chloride 1,010 ml @ 0 mls/hr PROTOCOL IV 06/09/24 10:00 06/11/24 13:29 DC Potassium Chloride/Dextrose/ Sod Cl 1,000 ml @ 0 mls/hr AD IV 06/09/24 10:00 06/11/24 13:29 DC Potassium Chloride 100 ml @ 50 mls/hr AD PRN IV POTASSIUM PROTOCOL 06/09/24 07:00 06/09/24 08:34 DC Potassium Chloride 100 ml @ 50 mls/hr AD PRN IV POTASSIUM PROTOCOL 06/09/24 08:30 07/09/24 08:29 06/13/24 16:38 50 MLS/HR Potassium Chloride 100 ml @ 100 mls/hr AD PRN IV POTASSIUM PROTOCOL 06/09/24 08:30 06/09/24 08:41 DC Potassium Chloride (K-Dur/Klor-Con 20meq) 20 meq AD PRN PO POTASSIUM PROTOCOL 06/09/24 08:30 07/09/24 08:29 Potassium Chloride (KCl 10% Elixir 20meq/15ml) 20 meq AD PRN PO POTASSIUM PROTOCOL 06/09/24 08:30 07/09/24 08:29 06/14/24 10:46 20 MEQ Propofol (DIPRivan 1000MG/ 100ML) 1,000 mg PROTOCOL PRN IV SEDATION 06/14/24 17:30 07/14/24 17:29 Sodium Bicarbonate 150 meq/Dextrose 1,150 ml @ 150 mls/hr Q7H40M IVP 06/09/24 00:30 06/09/24 18:11 DC 06/09/24 01:18 150 MLS/HR Sodium Chloride 1,000 ml @ 200 mls/hr PROTOCOL IV 06/09/24 10:00 06/11/24 13:29 DC Thiamine HCl (Vitamin B-1) 300 mg DAILY IV 06/09/24 18:00 07/09/24 17:59 06/16/24 08:50 300 MG Vancomycin HCl 250 ml @ 125 mls/hr Q12H IV 06/09/24 22:00 06/10/24 21:50 DC 06/10/24 10:06 125 MLS/HR Vancomycin HCl 250 ml @ 125 mls/hr Q24H IV 06/11/24 22:00 06/12/24 21:39 DC 06/11/24 21:10 125 MLS/HR Vancomycin HCl 250 ml @ 125 mls/hr Q24H IV 06/13/24 22:00 06/23/24 21:59 06/15/24 23:02 125 MLS/HR Vancomycin HCl (Vancomycin Protocol) 1 each AD IV 06/09/24 09:00 06/23/24 08:59 Vasopressin 20 units/Sodium Chloride 100 ml @ 0 mls/hr PROTOCOL IV 06/09/24 07:00 07/09/24 06:59 06/09/24 08:20 9 MLS/HR Wound Care/ Dressing Products (Venelex Ointment) 1 APPL TID TP 06/14/24 21:00 07/14/24 20:59 06/16/24 08:51 1 GM DIAGNOSTICS / RADIOLOGY: [ ] ASSESSMENT: Acute respiratory failure POA Septic shock, resolving Bilateral lower lobe bacterial pneumonia, POA Acute hepatic encephalopathy, POA Combined alcoholic and fatty liver cirrhosis, POA MELD Score 19 points (19.6% estimated three month mortality) NSTEMI type 2, 2/2 supply and demand mismatch POA Acute on chronic Stage I Diastolic Heart Failure w/ EF of 40% POA Elevated troponin R/O ACS POA Elevated D-dimer of 3989, negative for DVT, Well score for PE 3 ( Moderate score) Metabolic acidosis POA Ascites Hepatomegaly Acute blood loss anemia POA Acute upper and lower GI bleed, POA Acute thrombocytopenia POA Acute on chronic diastolic CHF POA Hyperglycemia POA Hypomagnesemia POA Positive for THC POA Active alcohol drinker POA Acute complicated cystitis POA Hypertension POA acute GI bleed POA s/p EGD 06/13/24 non bleeding ulcer PLAN: Continue ICU admission Appreciate critical Care team, patient currently intubated, on AC mode Patient will continued to be NPO Feeding tube per dietary Patient continue IV antibiotics on vancomycin, cefepime Flagyl CT head brain without contrast showed atrophy Chest x-ray cleared stable Continue to monitor electrolytes and replete as necessary Appreciate recommendations from Cardiology, elevated troponin is likely in the setting of acute respiratory failure and suspected GI bleed, no plans for invasive cardiac workup at this time. Furosemide adjusted to 40 mg IV q.12 hours We will repeat labs in the morning Critical care time: Spent 35 minutes of critical care time with the patient. Reviewed the lab work, reconciled and updated patient's medications, and coordinated plan of care in ICU. Code Status: DNR Disposition: TBD Prognosis: Guarded NEURO: Minimize central acting medications as possible. Fall Precautions. Well lighted room through the day and minimize interruptions through the night to prevent acute delirium. Lactulose enema and recheck ammonia in am PULMONARY: Supplemental 02 as needed Titrate Fio2 to keep Spo2 > or = 90% DuoNebs and CPT as needed IS hourly while awake for pulmonary hygiene Out of bed to chair as tolerated VAP Bundle Vent/BIPAP Settings: Assist-control volume control with tidal volume of 425 respiratory rate of 14 FiO2 45% and PEEP of 5. Daily SBTs. CARDIOVASCULAR: Follow hemodynamics. Titrate vasopressor to keep MAP >65 or systolic blood pressure >95mmHg Cardiac monitoring GI & NUTRITION: Continue nutritional support Aspirations precautions Prokinetic agents and laxatives as needed KIDNEYS & ELECTROLYTES: Strict monitoring of intake and output Daily weights Avoid nephrotoxic agents Monitor electrolytes and replace as needed Goal urine output of 30mL/hr or 0.5mL/kg/hr Monitor electrolytes and replace accordingly ENDOCRINE: Maintain blood glucose between 100-180 at all times. Insulin sliding scale for blood glucose management Hypoglycemia and hyperglycemia protocol in place INFECTIOUS DISEASE: Trend temperature, WBC and procalcitonin level Follow cultures, deescalate antibiotics as soon as possible. Panculture if new onset fever HEMATOLOGY & COAGULATION: Monitor H&H. Keep Hgb > 7 Transfuse 1 unit of PRBC for Hgb < 7 Transfuse 1 pack of platelets of platelets < 20, 000 Watch for any signs and symptoms of bleeding SKIN: Pressure ulcer prevention per facility protocol Specialty mattress as needed ] ATTESTATION BY PHYSICIAN I have seen and examined the patient. I reviewed the documentation, medical decision making, and treatment plan as noted by the mid-level provider above. I agree with the findings and plan of care. January Byrd MD, [employer] Jun 16, 2024 10:00
--- NOTE | 2024-06-16 18:59 | PN ---
GASTROENTEROLOGY PROGRESS NOTE Date of Visit: Jun 16, 2024 Time of Visit: 18:58 Events / Notes: No acute events overnight. EGD with gastric ulcer. Denies fever, chills, abdominal pain, N/V, hematemesis, bloating, constipation, diarrhea, melena or hematochezia. Review of Systems: CONSTITUTIONAL: No malaise or change in sensation of wellbeing. ENMT: No rhinorrhea, otorrhea, sinus pain, ear ache. CARDIOVASCULAR: No angina, palpitations, orthopnea or paroxysmal dyspnea. RESPIRATORY: No SOB. GASTROINTESTINAL: No abdominal pain, nausea, vomiting, diarrhea, hematemesis, melena or change in the patient's habitual bowel movements consistency/number. GENITOURINARY: No dysuria, hematuria or change in bladder continence. MUSCULOSKELETAL: No new muscle pain or decrease in muscular strength. No new joint swelling, redness or tenderness. SKIN: No new rash. Physical Exam: GEN: Awake, alert, oriented in person, time and place, and in no acute distress. HEENT: No sinus tenderness. Tympanic membranes were not examined. No rhinorrhea. Oral pharyngeal mucosa is pink, moist and within normal limits. Neck is supple with no cervical lymphadenopathy, thyromegaly or JVD. CHEST: Inspection, palpation and percussion of the chest were unremarkable. Lung auscultation revealed normal breath sounds bilaterally. CARDIAC: PMI is within normal limits. Heart sounds are regular. Normal S1, S2. No gallop or murmur. ABD: Soft, non-tender and not distended. No peritoneal signs on palpation. No organomegaly. Normal bowel sounds. EXT: No cyanosis or clubbing. No edema. SKIN: Intact. No rashes. JOINTS: No evidence of synovitis or acute arthritis. NEURO: Alert and oriented to name, place and person. Cranial nerve examination is unremarkable. No focal motor deficits. Normal speech. Gait is normal. Strength is normal. Vital Signs (last 8hr) Date Time Temp Pulse Resp B/P (MAP) Pulse Ox O2 Delivery O2 Flow Rate FiO2 06/16/24 18:33 65 25 06/16/24 18:28 65 35 06/16/24 18:00 63 30 109/61 (77) 99 35 06/16/24 17:16 65 27 111/62 (78) 98 35 06/16/24 17:00 69 30 99/61 (74) 98 35 06/16/24 16:30 66 27 106/64 (78) 97 35 06/16/24 16:05 97 Ventilator+ 35 06/16/24 16:00 62 26 104/62 (76) 98 35 06/16/24 16:00 35 06/16/24 15:40 35 06/16/24 15:16 67 32 91/57 (68) 96 35 06/16/24 15:00 65 30 92/56 (68) 99 35 06/16/24 14:38 64 35 06/16/24 14:30 64 28 92/60 (71) 100 35 06/16/24 14:14 64 22 06/16/24 14:00 35 06/16/24 13:46 66 30 97/50 (66) 97 35 06/16/24 13:30 62 29 91/55 (67) 98 35 06/16/24 13:00 65 31 98/59 (72) 98 35 06/16/24 12:30 100 Ventilator+ 35 06/16/24 12:30 64 30 112/66 (81) 100 35 06/16/24 12:00 65 35 06/16/24 11:46 65 26 95/56 (69) 98 35 06/16/24 11:16 60 23 101/62 (75) 100 35 06/16/24 11:00 62 25 118/76 (90) 100 35 Laboratory: [ ] Laboratory: Test 06/16/24 17:10 06/16/24 03:50 06/15/24 21:20 06/15/24 09:51 Range/Units Whole Blood Glucose 168 H 70-110 MG/DL White Blood Count 18.1 H 4.8-10.8 K/uL Red Blood Count 2.65 L 4.50-6.20 MIL/uL Hemoglobin 9.3 L 14.0-18.0 g/dL Hematocrit 28.2 L 42-54 % Mean Corpuscular Volume 106.4 H 79-99 fL Mean Corpuscular Hemoglobin 35.1 H 27.0-33.0 pg Mean Corpuscular Hemoglobin Concent 33.0 32.0-36.0 g/dL Red Cell Distribution Width 13.1 11.0-15.5 % Platelet Count 97 L 130-400 K/uL Mean Platelet Volume 13.9 H 7.5-10.5 fL Immature Granulocyte % (Auto) 1.5 H 0-1 % Neutrophils (%) (Auto) 81.8 H 40.0-77.0 % Lymphocytes (%) (Auto) 7.6 L 21.0-51.0 % Monocytes (%) (Auto) 8.3 3.0-13.0 % Eosinophils (%) (Auto) 0.6 0.0-8.0 % Basophils (%) (Auto) 0.2 0.0-5.0 % Neutrophils # (Auto) 14.8 H 1.8-7.7 K/uL Lymphocytes # (Auto) 1.4 1.0-4.8 K/uL Monocytes # (Auto) 1.5 H 0.1-1.0 K/uL Eosinophils # (Auto) 0.10 0.00-0.70 K/uL Basophils # (Auto) 0.04 0.00-0.20 K/uL Absolute Immature Granulocyte (auto 0.27 0-1 K/uL Nucleated Red Blood Cells 0.2 H 0.0-0.19 % White Cell Morphology Comment CONSISTENT W/DIFF Red Blood Cell Morphology See comments Sodium Level 144 136-145 mmol/L Potassium Level 3.4 L 3.5-5.1 mmol/L Chloride Level 110 101-111 mmol/L Carbon Dioxide Level 23 21-32 mmol/L Blood Urea Nitrogen 34 H 7-18 mg/dL Creatinine 1.2 0.5-1.3 mg/dL Glomerular Filtration Rate Calc 71 >90 mL/min Random Glucose 189 H 70-105 mg/dL Total Calcium 7.4 L 8.5-10.1 mg/dL Magnesium Level 1.70 L 1.80-2.40 mg/dL Total Bilirubin 3.0 H 0.2-1.0 mg/dL Aspartate Amino Transf (AST/SGOT) 45 H 10-37 U/L Alanine Aminotransferase (ALT/SGPT) 15 12-78 U/L Alkaline Phosphatase 96 50-136 U/L Total Protein 4.8 L 6.0-8.3 g/dL Albumin 1.8 L 3.5-5.0 g/dL Vancomycin Level Trough 12.9 10.0-20.0 UG/ML Lactic Acid Level 1.5 0.8-2.5 mmol/L C-Reactive Protein, Quantitative 84.00 H 0.5-3.0 mg/L Procalcitonin 4.79 H 0.05-0.5 ng/mL Test 06/15/24 07:45 Range/Units Blood Gas Specimen Type Arterial Arterial Blood pH 7.436 7.350-7.450 Arterial Blood Partial Pressure CO2 33 L 35-48 mmHg Arterial Blood Partial Pressure O2 114.8 H 83.0-108.0 mmHg Arterial Blood HCO3 21.5 21.0-28.0 mmol/L Arterial Blood Oxygen Saturation 98.4 H 94.0-98.0 % Arterial Blood Base Excess -1.8 -2.0-3.0 mmol/L Blood Gas Temperature 37.0 35.5-37.0 CELSIUS Blood Gas Respiration Rate 12.0 min. Blood Gas Vent Mode AC ROOM AIR FiO2 35.0 % Blood Gas Tidal Volume 425 ml Blood Gas PEEP 5 cm H2O Blood Gas Specimen Comment RR, SANDRA,RN Current Medications Medications (Trade) Dose Ordered Sig/Quan Route PRN Reason Start Time Stop Time Status Last Admin Dose Admin Acetaminophen (TYLenol 500MG TAB) 500 mg Q6H PRN PO TEMP < 101.1 AND/OR HEADACHE 06/09/24 18:00 07/09/24 17:59 06/14/24 17:35 500 MG Albumin Human 100 ml @ 50 mls/hr AD IV 06/12/24 11:00 06/14/24 10:59 DC 06/12/24 13:30 50 MLS/HR Artificial Tears (Artificial Tears) 1 DROP OR AD Q8H OU 06/09/24 09:00 07/09/24 08:59 06/16/24 16:52 1 DROP Cefepime HCl (MAXipime 2 gm vial) 2 gm Q12H IVPB 06/11/24 05:00 06/19/24 08:59 06/16/24 16:51 2 GM Cefepime HCl (MAXipime 2 gm vial) 2 gm Q8H IVPB 06/09/24 09:00 06/10/24 19:49 DC 06/10/24 16:44 2 GM Chlorhexidine Gluconate (Peridex) 15 ml Q8H MM 06/09/24 09:00 06/23/24 08:59 06/16/24 16:51 15 ML Dexmedetomidine/ Sodium Chloride (PRECEdex 400MCG/ 100ML-NS) 400 mcg PROTOCOL IV 06/11/24 20:30 07/11/24 20:29 06/16/24 17:04 400 MCG Dextrose/Sodium Chloride 1,000 ml @ 0 mls/hr AD IV 06/09/24 10:00 06/11/24 13:29 DC Fentanyl Citrate 100 ml @ 2.5 mls/hr PROTOCOL IV 06/09/24 06:30 06/12/24 13:28 DC 06/11/24 21:06 2.5 MLS/HR Folic Acid (FolVITE 5 MG/ML VIAL) 1 mg DAILY IV 06/09/24 18:00 07/09/24 17:59 06/16/24 11:57 1 MG Furosemide (LASix 20MG VIAL) 20 mg DAILY IV 06/13/24 09:00 06/13/24 09:20 DC 06/13/24 07:59 20 MG Furosemide (LASix 20MG VIAL) 20 mg Q12H IV 06/09/24 12:00 06/09/24 11:26 DC Furosemide (LASix 20MG VIAL) 20 mg Q6H6 IV 06/09/24 12:00 06/12/24 07:38 DC 06/12/24 06:46 20 MG Furosemide (LASix 20MG VIAL) 40 mg Q12H IV 06/12/24 08:00 06/12/24 14:58 DC 06/12/24 08:16 40 MG Heparin Sodium/ Dextrose 250 ml @ 0 mls/hr PROTOCOL IV 06/09/24 03:30 06/09/24 09:45 DC 06/09/24 03:31 10.78 MLS/HR Insulin Human Regular (humuLIN R 100 UNIT/ML 3ML) INSULIN SLIDING SCAL... Q6H6 SQ 06/11/24 12:00 06/13/24 11:22 DC 06/13/24 06:45 6 UNIT Insulin Human Regular (humuLIN R 100 UNIT/ML 3ML) INSULIN SLIDING SCAL... Q6H6 SQ 06/13/24 12:00 07/13/24 11:59 06/16/24 06:01 8 UNIT Insulin Human Regular 100 unit/ Sodium Chloride 101 ml @ 0 mls/hr PROTOCOL IV 06/09/24 10:00 06/11/24 13:29 DC 06/09/24 11:41 1 MLS/HR Ipratropium Alpine (AtrovENT UD) 0.5 MG [id number] IH 06/14/24 14:00 07/14/24 13:59 06/16/24 18:32 0.5 MG Lactated Ringer's 1,000 ml @ 50 mls/hr Q20H IV 06/13/24 09:30 06/13/24 14:44 DC 06/13/24 11:18 50 MLS/HR Lactated Ringer's 1,000 ml @ 75 mls/hr [id number] IV 06/15/24 11:00 07/15/24 10:59 06/16/24 14:31 75 MLS/HR Lactated Ringer's (Lactated Ringers 1000ml) 500 ml BOLUS IV 06/15/24 10:00 06/15/24 12:31 DC 06/15/24 10:04 500 ML Lactulose (Constulose 20gm/ 30ml Udcup) 20 gm DAILY PO 06/12/24 09:00 07/12/24 08:59 06/16/24 08:47 20 GM Levofloxacin/ Dextrose (LEvaquIN 750 MG/ D5W 150 ML) 750 mg Q24H IV 06/09/24 06:30 06/09/24 08:29 DC Lorazepam (AtiVAN) 2 mg Q4H PRN IVP ALCOHOL WITHDRAWAL PROTOCOL 06/09/24 18:00 06/16/24 17:59 DC Lorazepam (AtiVAN) 4 mg Q2H PRN IVP ALCOHOL WITHDRAWAL PROTOCOL 06/09/24 18:00 06/16/24 17:59 DC Magnesium Sulfate 50 ml @ 0 mls/hr PROTOCOL IV 06/09/24 10:00 06/11/24 13:29 DC 06/11/24 07:13 25 MLS/HR Magnesium Sulfate 50 ml @ 0 mls/hr PROTOCOL PRN IV OTHER [SEE ORDER COMMENTS] 06/09/24 01:00 06/09/24 06:50 DC 06/09/24 01:03 25 MLS/HR Magnesium Sulfate 50 ml @ 0 mls/hr PROTOCOL PRN IV OTHER [SEE ORDER COMMENTS] 06/09/24 07:00 06/09/24 08:35 DC Magnesium Sulfate 50 ml @ 0 mls/hr PROTOCOL PRN IV low magnesium 06/09/24 08:30 06/09/24 09:46 DC Magnesium Sulfate 50 ml @ 0 mls/hr PROTOCOL PRN IV MAGNESIUM PROTOCOL 06/11/24 15:00 07/11/24 14:59 06/16/24 13:00 25 MLS/HR Metronidazole/ Sodium Chloride 100 ml @ 100 mls/hr Q8H6 IVPB 06/09/24 14:00 06/19/24 13:59 06/16/24 14:29 100 MLS/HR Midazolam HCl (Midazolam 100mg-0.9% NS 100ml) 100 ml PROTOCOL IV 06/09/24 15:30 06/12/24 10:33 DC 06/11/24 08:05 100 ML Midodrine (PROAMatine 5 MG TABLET) 10 mg TID PO 06/11/24 14:00 06/14/24 10:06 DC 06/14/24 07:47 10 MG Midodrine (PROAMatine 5 MG TABLET) 15 mg TID PO 06/14/24 14:00 07/14/24 13:59 06/16/24 14:29 15 MG Multivitamins Therapeutic (Multivitamin Tablet) 1 tab DAILY PO 06/10/24 09:00 07/10/24 08:59 06/16/24 08:49 1 TAB Norepinephrine Bitartrate (Norepineph 16 Mg/250ml NS Premix) HIGH ALERT Init... PROTOCOL IV 06/09/24 12:30 07/09/24 12:29 06/13/24 19:21 16 MG Octreotide Acetate 1250 mcg/ Sodium Chloride 250 ml @ 0 mls/hr PROTOCOL IV 06/09/24 08:30 06/13/24 13:43 DC 06/11/24 13:17 5 MLS/HR Octreotide Acetate 500 mcg/ Sodium Chloride 100 ml @ 0 mls/hr PROTOCOL IV 06/09/24 04:30 06/09/24 08:13 DC 06/09/24 05:50 5 MLS/HR Ondansetron HCl (zoFRAN 4MG INJ) 4 mg Q4H PRN IV NAUSEA 06/09/24 18:00 07/09/24 17:59 Pantoprazole Sodium (PROTonix 40MG INJ) 40 mg BID IVP 06/11/24 21:00 07/11/24 20:59 06/16/24 08:47 40 MG Pantoprazole Sodium 80 mg/ Sodium Chloride 100 ml @ 10 mls/hr Q10H IVP 06/09/24 04:00 06/11/24 13:24 DC 06/11/24 08:04 10 MLS/HR Pharmacy Profile Note (Pharmacy Communication) 1 each PROTOCOL PRN MISC ETOH Withdrawal Score changes 06/09/24 18:00 06/16/24 17:59 DC Phenylephrine HCl 10 mg/Sodium Chloride 250 ml @ 0 mls/hr PROTOCOL PRN IV PROTOCOL 06/09/24 07:00 07/09/24 06:59 06/09/24 09:27 96 MLS/HR Potassium Chloride 20 meq/ Sodium Chloride 1,010 ml @ 0 mls/hr PROTOCOL IV 06/09/24 10:00 06/11/24 13:29 DC Potassium Chloride/Dextrose/ Sod Cl 1,000 ml @ 0 mls/hr AD IV 06/09/24 10:00 06/11/24 13:29 DC Potassium Chloride 100 ml @ 50 mls/hr AD PRN IV POTASSIUM PROTOCOL 06/09/24 07:00 06/09/24 08:34 DC Potassium Chloride 100 ml @ 50 mls/hr AD PRN IV POTASSIUM PROTOCOL 06/09/24 08:30 07/09/24 08:29 06/13/24 16:38 50 MLS/HR Potassium Chloride 100 ml @ 100 mls/hr AD PRN IV POTASSIUM PROTOCOL 06/09/24 08:30 06/09/24 08:41 DC Potassium Chloride (K-Dur/Klor-Con 20meq) 20 meq AD PRN PO POTASSIUM PROTOCOL 06/09/24 08:30 07/09/24 08:29 Potassium Chloride (KCl 10% Elixir 20meq/15ml) 20 meq AD PRN PO POTASSIUM PROTOCOL 06/09/24 08:30 07/09/24 08:29 06/16/24 14:29 20 MEQ Propofol (DIPRivan 1000MG/ 100ML) 1,000 mg PROTOCOL PRN IV SEDATION 06/14/24 17:30 07/14/24 17:29 Sodium Bicarbonate 150 meq/Dextrose 1,150 ml @ 150 mls/hr Q7H40M IVP 06/09/24 00:30 06/09/24 18:11 DC 06/09/24 01:18 150 MLS/HR Sodium Chloride 1,000 ml @ 200 mls/hr PROTOCOL IV 06/09/24 10:00 06/11/24 13:29 DC Thiamine HCl (Vitamin B-1) 300 mg DAILY IV 06/09/24 18:00 07/09/24 17:59 06/16/24 08:50 300 MG Vancomycin HCl 250 ml @ 125 mls/hr Q12H IV 06/09/24 22:00 06/10/24 21:50 DC 06/10/24 10:06 125 MLS/HR Vancomycin HCl 250 ml @ 125 mls/hr Q24H IV 06/11/24 22:00 06/12/24 21:39 DC 06/11/24 21:10 125 MLS/HR Vancomycin HCl 250 ml @ 125 mls/hr Q24H IV 06/13/24 22:00 06/23/24 21:59 06/15/24 23:02 125 MLS/HR Vancomycin HCl (Vancomycin Protocol) 1 each AD IV 06/09/24 09:00 06/23/24 08:59 Vasopressin 20 units/Sodium Chloride 100 ml @ 0 mls/hr PROTOCOL IV 06/09/24 07:00 07/09/24 06:59 06/09/24 08:20 9 MLS/HR Wound Care/ Dressing Products (Venelex Ointment) 1 APPL TID TP 06/14/24 21:00 07/14/24 20:59 06/16/24 14:31 1 GM Diagnostics / Radiology: [COPY/PASTE HERE IF NO REPORTS PLEASE DELETE SECTION] Assessment: Gastric ulcer Acute blood loss anemia Cirrhosis Plan: Continue GI prophylaxis Advance diet as tolerated Avoid NSAIDs Antireflux measures Monitor H&H and transfuse as needed Call with questions, concerns or change in clinical status Patient to follow-up at clinic post discharge Thank you for this consult LISA FRASER Jun 16, 2024 18:59
--- NOTE | 2024-06-16 20:32 | PN ---
[facility] PROGRESS NOTE Date Patient Seen: Jun 16, 2024 Time of Visit: 20:21 Supervising Physician: Dr. Mccollum Primary Care Physician: Self Referral, Outpatient Specialists: Inpatient Consults: Dr Mena. 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 He has less pressor support only on Levophed today at 0.4 micrograms/kilogram per minute. He is still critically ill. Current vital signs and blood pressure 128/72 respiratory rate of 24 saturating 95% with FiO2 of 70%, heart rate 96 beats per minute, he developed a fever yesterday of 101.1 in the last 24 hours. He continues antibiotics with vanco cefepime and Flagyl. Sister is at the bedside who answered a few questions in regards to his medical history. She reports she has not been very informed of patient for the last three years but she reports patient has been told he has liver cirrhosis at least three years ago. He was told that if he did in quit drinking that he could within the next year. She also reports patient has heart problems and at one point he was placed on a LifeVest for heart failure. Urine output 2.3 L with a balance of-483 mL. On laboratory WBCs are 11.2 H&H is 10.1/29.7 seemed to be stable. Platelet count 59 K decreased from yesterday which was 91 K. Latest ABG with a pH of 7.35 pCO2 of 33 PO2 of 251 and bicarb of 17.9 base excess-6.7 improvement from yesterday. Ventilator Settings Adjusted To Assist Control Volume Control Tidal Volume Of 425 Respiratory Rate Of 24 Fio2 Of 70% And Peep Of 5. 2D echo shows EF of 40% with grade 1 diastolic dysfunction. Venous ultrasound with normal bilateral lower extremity venous Doppler. Ultrasound of the abdomen with moderate to marked hepatic steatosis, the liver is enlarged at 17 cm., ascites otherwise unremarkable exam including no abnormal per has been. Patient has a MELD score of 19 point which is 19.6% of estimated 3month mortality. EGD for today has been canceled per GI due to pt still on pressor support. Pt's sister was at the bedside and has requested for pt code status to be changed to DNR. 06/11/24: Patient continues critically ill currently on Levophed at 0.04 micrograms/kilogram per minute, fentanyl 125 micrograms/hour, Versed weaning at 4 milligrams/hour. He continues on Sandostatin drip and Protonix drip. We will switch to Protonix 40 ivp BID for now. Patient has been afebrile heart rate in the 80s hemodynamically improving blood pressure 108/68 with a map of 81 respiratory rate adjusted to 18 saturating 97% with a FiO2 45% on the vent, current settings of assist control volume control tidal volume of 425 respiratory rate of 18 FiO2 of 45 and PEEP of five. Prior ABGs showed a pH of 7.51, pCO2 of 31 PO2 of 140 and bicarb of 24.2. Chest x-ray shows pulmonary pattern has been for no worrisome interval changes have taken place. Stable exam. ET tube 6.5 cm from the louis communicated with respiratory for insertion in 1.5 cm. We will continue to wean off sedation to assess mental status. once pt breathing over the vent we may start SBT. 06/12/24-patient assessed in room 206 ICU. As per RN no major overnight events. Has been off sedation since seven in the morning fentanyl and Versed has been turned off. We will assess respiratory status due to right now patient is still breathing on the vent and once he breathe over the vent we can start spontaneous breathing trials. Patient continues on low-dose Levophed at 0.04 micrograms/kilograms per minute attempting to wean off pressors. Hemodynamically stable at this time with blood pressure 107/71 heart rate of 90 respiratory rate of 13 saturating 97% with a FiO2 of 45%. Latest ABGs show pH of 7.42 pCO2 of 38 PO2 of 114 bicarb 24.7 O2 saturation 98.3 weaning on the FiO2. Input was 3.7 L in the last 24 hours with a balance of-2.7 L. he was on Lasix 40 mg IV push q.12 hours we will decreased now to Lasix 20 mg IV push daily which is equivalent to his Lasix 40 mg p.o. home medication. On laborato ry WBCs are 10.9 trending down with the improvement H&H is stable 10.1/29.8 with a platelet count of 55 K. chemistries sodium 147 BUN 22 creatinine 1.4 GFR of 59 improving. Glucose of 197 mg/dL total protein 5.9 albumin 2.3. Sister at the bedside. I updated her with today is findings and answered all her questions. Inform her of the plan of care and she verbalized agreement. 06/13/24-patient assessed in room 206 in the ICU. This morning he is off pressors hemodynamically stable blood pressure 105/71 with a heart rate of 100 saturating 94% with a FiO2 of 45% on the vent breathing slightly over the vent at 18 with a rate on the vent of 14 and has been afebrile. Patient tolerated CPAP trials yesterday. Patient with minor movements and grimacing to face not fully awake and following commands. He has been off sedation x2 days. We will order CT head and brain without contrast to rule CVA. Urine output 2.7 L with a balance of -1.9. On laboratory WBCs are 9.1 H&H is 9.1/27.3 platelet count is 59 K. patient has been NPO due to GI bleed and we will start LR at a low-rate of 50 mL/hour. Patient may be encephalopathic from hypernatremia sodium of 153. Potassium of 3.1 chloride 113 carbon dioxide 30 BUN of 34 creatinine of 1.4 and GFR 59. Glucose of 212 mg/dL adjusted insulin sliding scale to #2 for hyperglycemia. Otherwise chest x-ray shows stable exam no worrisome interval changes. ET tube readjusted inserted 1.5 cm in per RT. We will follow GI recommendations in regards to a possible endoscopies since davie finney is off pressors and hemodynamically stable. CT of the head and brain without contrast ordered and is pending to be resulted. 06/14/2024: At the time of my evaluation, the patient is lying bed. Sister was present at the bedside during my visit. The patient has been off sedation x2 days and is still not arousable, RASS score of -5. CT head done on 06/13/2024, showed no concerning intracranial abnormality. He remains intubated and mechanically vented. Vital signs are in the hypotensive range systolic in the 80s with a map of 62, this was off Levophed. The patient continues on feeding through the OGT for nutritional support. I and O shows a net balance of 1129.0. Laboratory data today, showed stable WBC count, low H&H and platelet count. Chemistry panel showed no derangement of concern. Staff nurse showed no report of recurrent bleed. No new complaint. 06/15/2024: At the time of my evaluation, the patient is lying in bed. The staff nurses present at the bedside as well as family members. Per the staff nurse, the patient was weaned off sedation and became very agitated overnight. His Precedex was resumed and he is currently RASS score of -2. The patient remains intubated and mechanically vented. ACVC rate of 12, TV 425, peep of 5 and FiO2 35%. On the monitor, the patient is hypotensive systolic in the 80s. Currently, was off Levophed and continues on midodrine. The patient continues on nutritional support via OGT and no report of nausea, vomiting or diarrhea. The patient remains with Gomez catheter in place abran color urine. Net balance on I's and O's of 1797.8. On labs, the was a increase in WBC count from 9.4 yesterday to 15.5 today. Cultures are negative. No acute events noted overnight. No other complaint. 06/16/2024: At the time of my evaluation, the patient was lying in bed. Per the staff nurse, the patient has been off sedation since this a.m.. RASS score of -2. The patient remains intubated and mechanically vented currently on SBT. Chest x-ray showed bilateral effusion. The patient continues on antibiotic coverage with cefepime, vanco and Flagyl Vital signs are hemodynamically stable on low-dose Levophed and high dose midodrine. There was no complaint of chest pain. There was no nausea, vomiting or diarrhea. Patient continues with Gomez catheter in place draining dark abran colored urine and has a net balance of 1939.8. On labs today, there was a increase in WBC count to 18.1, H and H showed a drop from 10.3/30.6-9.3/28.2. Chemistry panel showed a slightly lower potassium to 3.4 and a magnesium of 1.70. Liver parameters showed a total bili of 30.0, AST of 45, ALT is 15 and alk-phos of 96. Otherwise, no other complaint. REVIEW OF SYSTEMS: Unable to perform due to patient's intubated. PHYSICAL EXAM: GENERAL: Intubated off sedation HEENT: Sclera non icteric, dry mucosa NECK: Supple, no JVD, trachea midline LUNGS: Diminished breath sounds bilaterally. No wheezes HEART: Regular rate and rhythm. Normal S1 and S2, without murmurs ABD: Abdomen soft, nontender. Bowel sounds present EXT: No clubbing cyanosis , swelling to bilateral lower extremities. NEURO: Intubated off sedation Vital Signs (last 8hr) Date Time Temp Pulse Resp B/P (MAP) Pulse Ox O2 Delivery O2 Flow Rate FiO2 06/16/24 18:33 65 25 06/16/24 18:28 65 35 06/16/24 18:00 63 30 109/61 (77) 99 35 06/16/24 17:16 65 27 111/62 (78) 98 35 06/16/24 17:00 69 30 99/61 (74) 98 35 06/16/24 16:30 66 27 106/64 (78) 97 35 06/16/24 16:05 97 Ventilator+ 35 06/16/24 16:00 62 26 104/62 (76) 98 35 06/16/24 16:00 35 06/16/24 15:40 35 06/16/24 15:16 67 32 91/57 (68) 96 35 06/16/24 15:00 65 30 92/56 (68) 99 35 06/16/24 14:38 64 35 06/16/24 14:30 64 28 92/60 (71) 100 35 06/16/24 14:14 64 22 2/6/25 14:00 35 06/16/24 13:46 66 30 97/50 (66) 97 35 06/16/24 13:30 62 29 91/55 (67) 98 35 06/16/24 13:00 65 31 98/59 (72) 98 35 06/16/24 12:30 100 Ventilator+ 35 06/16/24 12:30 64 30 112/66 (81) 100 35 LABS: Hematology Labs: Test 06/16/24 03:50 Range/Units White Blood Count 18.1 H 4.8-10.8 K/uL Red Blood Count 2.65 L 4.50-6.20 MIL/uL Hemoglobin 9.3 L 14.0-18.0 g/dL Hematocrit 28.2 L 42-54 % Mean Corpuscular Volume 106.4 H 79-99 fL Mean Corpuscular Hemoglobin 35.1 H 27.0-33.0 pg Mean Corpuscular Hemoglobin Concent 33.0 32.0-36.0 g/dL Red Cell Distribution Width 13.1 11.0-15.5 % Platelet Count 97 L 130-400 K/uL Mean Platelet Volume 13.9 H 7.5-10.5 fL Immature Granulocyte % (Auto) 1.5 H 0-1 % Neutrophils (%) (Auto) 81.8 H 40.0-77.0 % Lymphocytes (%) (Auto) 7.6 L 21.0-51.0 % Monocytes (%) (Auto) 8.3 3.0-13.0 % Eosinophils (%) (Auto) 0.6 0.0-8.0 % Basophils (%) (Auto) 0.2 0.0-5.0 % Neutrophils # (Auto) 14.8 H 1.8-7.7 K/uL Lymphocytes # (Auto) 1.4 1.0-4.8 K/uL Monocytes # (Auto) 1.5 H 0.1-1.0 K/uL Eosinophils # (Auto) 0.10 0.00-0.70 K/uL Basophils # (Auto) 0.04 0.00-0.20 K/uL Absolute Immature Granulocyte (auto 0.27 0-1 K/uL Nucleated Red Blood Cells 0.2 H 0.0-0.19 % White Cell Morphology Comment CONSISTENT W/DIFF Red Blood Cell Morphology See comments Chemistry Labs: Test 06/16/24 17:10 06/16/24 03:50 06/15/24 09:51 Range/Units Whole Blood Glucose 168 H 70-110 MG/DL Sodium Level 144 136-145 mmol/L Potassium Level 3.4 L 3.5-5.1 mmol/L Chloride Level 110 101-111 mmol/L Carbon Dioxide Level 23 21-32 mmol/L Blood Urea Nitrogen 34 H 7-18 mg/dL Creatinine 1.2 0.5-1.3 mg/dL Glomerular Filtration Rate Calc 71 >90 mL/min Random Glucose 189 H 70-105 mg/dL Total Calcium 7.4 L 8.5-10.1 mg/dL Magnesium Level 1.70 L 1.80-2.40 mg/dL Total Bilirubin 3.0 H 0.2-1.0 mg/dL Aspartate Amino Transf (AST/SGOT) 45 H 10-37 U/L Alanine Aminotransferase (ALT/SGPT) 15 12-78 U/L Alkaline Phosphatase 96 50-136 U/L Total Protein 4.8 L 6.0-8.3 g/dL Albumin 1.8 L 3.5-5.0 g/dL Lactic Acid Level 1.5 0.8-2.5 mmol/L C-Reactive Protein, Quantitative 84.00 H 0.5-3.0 mg/L Procalcitonin 4.79 H 0.05-0.5 ng/mL DIAGNOSTICS / RADIOLOGY RESULTS: [ ] PLAN Daily sedation vacation. daily SBT's CT head and brain without contrast Precedex only if absolutely needed. Change Protonix gtt to IVP BID LR at 50 mL/hour for light hydration due to NPO status. Follow GI recommendations: Endoscopy? 06/14/2024: For now, we are going to continue current management for the patient. He will remain off of sedation and we will monitor his level of consciousness. I am going to repeat CT head/brain without contrast in a.m. and we will continue to correct any metabolic abnormalities that may affect his level of consciousness. Patient will remain intubated and we will continue with daily spontaneous breathing trials. I am going to increase the midodrine to 15 mg 3 times daily and we will monitor for bradycardic events. We will monitor the vital signs and heart rate. We will follow GI as planned on the possibility for endoscopic evaluation and we will continue to monitor for any recurrent bleed. The patient continue on Protonix IV twice daily. Electronic Specialist on board due to the anemia. Blood, urine and sputum cultures are negative. Patient is developing a DTI to the buttocks for which we will consult human services care specialist. We will monitor the patient's progress and response to management. Patient remains critically ill and his prognosis is poor. Per the sister's input, if the patient would require trach and PEG, they might opt against it, patient is a DNR. We will continue to provide general supportive care, GI and DVT prophylaxis. Further orders per attending MD and hospital course. 06/15/2024: For now, we are going to continue current management for the patient. He will remain mechanically vented for now. We will attempt weaning trials once he is hemodynamically stable. We will resume the Levophed and titrate to maintain map above 65. We will put the patient on IV LR give a 500 mL bolus then continue at 75 mL/hour. We will monitor the blood pressure trend and adjust as necessary. We will continue feeding through the OGT and we will monitor for nausea, vomiting or diarrhea. We will follow the input of the treating specialist. We will monitor the patient's progress and response to management. We will continue to provide general supportive care, GI and DVT prophylaxis. Further orders per attending MD and hospital course. 06/16/2024: For now, we are going to continue current management for the patient. The patient for now we will remain off sedation. We will continue with SBTs in attempt to wean off the vent, possibly in the upcoming days. The patient is going to continue on antibiotic coverage as ordered. We will also continue on bronchodilator therapy. We will give the patient a dose of IV Lasix 20 mg x1 now. We will repeat a chest x-ray in a.m. We will monitor for any arrhythmias or other cardiac events. The patient will continue to feed on OGT with Vital HP. We will monitor the urinary output and bowel activity. Because of the increasing WBCs, I am going to panculture the patient once again and if no improvement of WBCs in the next 24 hours, we will broaden antibiotic spectrum. We will repeat surveillance labs in the morning with inclusion of a procalcitonin level. We will monitor the patient's progress and response to management. We will continue to provide general supportive care, GI and DVT prophylaxis. Further orders per attending MD and hospital course. NEURO: Minimize central acting medications as possible. Fall Precautions. Well lighted room through the day and minimize interruptions through the night to prevent acute delirium. PULMONARY: Supplemental 02 as needed Titrate Fio2 to keep Spo2 > or = 90% DuoNebs and CPT as needed IS hourly while awake for pulmonary hygiene Out of bed to chair as tolerated VAP Bundle Vent/BIPAP : Titrate to maintain optimal ventilation and oxygen saturation. Daily SBTs. CARDIOVASCULAR: Follow hemodynamics. Titrate vasopressor to keep MAP >65 or systolic blood pressure >95mmHg Cardiac monitoring Drips:: None LINES: RT IJ CVC PIV GI & NUTRITION: Continue nutritional support Aspirations precautions Prokinetic agents and laxatives as needed To low intermittent suction Per GI EGD canceled due to pressor support KIDNEYS & ELECTROLYTES: Strict monitoring of intake and output Daily weights Avoid nephrotoxic agents Monitor electrolytes and replace as needed Goal urine output of 30mL/hr or 0.5mL/kg/hr Monitor electrolytes and replace accordingly ENDOCRINE: Goal blood glucose between 100-180 at all times. INFECTIOUS DISEASE: Trend temperature. Salmeron-culture if febrile. Micro: Urine culture no growth Blood cultures no growth Respiratory cultures no growth Antibiotics: Vancomycin Cefepime Flagyl HEMATOLOGY & COAGULATION: Monitor H&H. Keep Hgb > 7 Transfuse 1 unit of PRBC for Hgb < 7 Transfuse 1 pack of platelets of platelets < 20, 000 Watch for any signs and symptoms of bleeding SKIN: Pressure ulcer prevention per facility protocol Rehab: PT/OT Prophylaxis: GI: Protonix IV 40mg BID DVT: SCDs due to GI bleed. Code Status: Full Resuscitation Disposition: ICU Other: Total patient care time exceeds 50 minutes excluding all procedures. Case was discussed and seen with my supervising physician. The above plan was formulated and agreed upon. FATIMAH SANTIAGO NP Jun 16, 2024 20:32
[2024-06-17] VITALS (56 sets, daily range): BP systolic 73–133; BP diastolic 39–81; PULSE 55–124; RESP 19–36; TEMP 97.4–98.1; O2SAT 95–100
[2024-06-17] MEDS: SODIUM CHLORIDE 3% FOR INHALATION 4 ML/AMP VIAL.NEB IH ONE (02:49)
[2024-06-17 04:31] LABS: BASOPHILS # (AUTO) 0.06 K/uL (0.00-0.20); BASOPHILS % (AUTO) 0.3 % (0.0-5.0); EOSINOPHILS # (AUTO) 0.15 K/uL (0.00-0.70); EOSINOPHILS % (AUTO) 0.8 % (0.0-8.0); HEMATOCRIT 28.2 % (42-54); IMMATURE GRANULOCYTE ABSOLUTE 0.29 K/uL (0-1); LYMPHOCYTES # (AUTO) 1.5 K/uL (1.0-4.8); LYMPHOCYTES % (AUTO) 8.2 % (21.0-51.0); MEAN CORPUSCULAR HEMOGLOBIN 35.3 pg (27.0-33.0); MEAN CORPUSCULAR VOLUME 103.7 fL (79-99); MONOCYTES # (AUTO) 1.3 K/uL (0.1-1.0); MONOCYTES % (AUTO) 7.1 % (3.0-13.0); NEUTROPHILS # (AUTO) 15.2 K/uL (1.8-7.7); NUCLEATED RED BLOOD CELLS 0.1 % (0.0-0.19); PLATELET COUNT (AUTO) 134 K/uL (130-400); RED BLOOD CELL COUNT(AUTO) 2.72 MIL/uL (4.50-6.20); RED CELL DISTRIBUTION WIDTH 13.1 % (11.0-15.5); WHITE BLOOD COUNT (AUTO) 18.6 K/uL (4.8-10.8)
[2024-06-17 04:50] LABS: ALBUMIN 1.6 g/dL (3.5-5.0); BILIRUBIN,TOTAL 3.1 mg/dL (0.2-1.0); CREATININE 1.2 mg/dL (0.5-1.3); MAGNESIUM 2.1 mg/dL (1.80-2.40); POTASSIUM 3.5 mmol/L (3.5-5.1); TOTAL PROTEIN, SERUM 4.7 g/dL (6.0-8.3)
--- NOTE | 2024-06-17 08:49 | HMCIMG ---
Exam Type: CHEST 1VW Clinical Information: Intubated/PNA Comparison: None Findings: Pulmonary pattern is as before. No worrisome interval changes have taken place. Impression: Stable exam.
--- NOTE | 2024-06-17 09:09 | PN ---
GASTROENTEROLOGY PROGRESS NOTE Date of Visit: Jun 17, 2024 Time of Visit: 09:05 Events / Notes: No acute events overnight. EGD with gastric ulcer. Denies fever, chills, abdominal pain, N/V, hematemesis, bloating, constipation, diarrhea, melena or hematochezia. Review of Systems: CONSTITUTIONAL: No malaise or change in sensation of wellbeing. ENMT: No rhinorrhea, otorrhea, sinus pain, ear ache. CARDIOVASCULAR: No angina, palpitations, orthopnea or paroxysmal dyspnea. RESPIRATORY: No SOB. GASTROINTESTINAL: No abdominal pain, nausea, vomiting, diarrhea, hematemesis, melena or change in the patient's habitual bowel movements consistency/number. GENITOURINARY: No dysuria, hematuria or change in bladder continence. MUSCULOSKELETAL: No new muscle pain or decrease in muscular strength. No new joint swelling, redness or tenderness. SKIN: No new rash. Physical Exam: GEN: Awake, alert, oriented in person, time and place, and in no acute distress. HEENT: No sinus tenderness. Tympanic membranes were not examined. No rhinorrhea. Oral pharyngeal mucosa is pink, moist and within normal limits. Neck is supple with no cervical lymphadenopathy, thyromegaly or JVD. CHEST: Inspection, palpation and percussion of the chest were unremarkable. Lung auscultation revealed normal breath sounds bilaterally. CARDIAC: PMI is within normal limits. Heart sounds are regular. Normal S1, S2. No gallop or murmur. ABD: Soft, non-tender and not distended. No peritoneal signs on palpation. No organomegaly. Normal bowel sounds. EXT: No cyanosis or clubbing. No edema. SKIN: Intact. No rashes. JOINTS: No evidence of synovitis or acute arthritis. NEURO: Alert and oriented to name, place and person. Cranial nerve examination is unremarkable. No focal motor deficits. Normal speech. Gait is normal. Strength is normal. Vital Signs (last 8hr) Date Time Temp Pulse Resp B/P (MAP) Pulse Ox O2 Delivery O2 Flow Rate FiO2 06/17/24 07:34 55 06/17/24 07:30 62 26 92/61 (71) 99 35 06/17/24 07:00 56 26 94/56 (69) 100 35 06/17/24 07:00 97.3 06/17/24 07:00 35 06/17/24 07:00 35 06/17/24 06:43 56 27 06/17/24 06:38 59 35 06/17/24 04:00 35 06/17/24 04:00 100 Ventilator+ 35 06/17/24 03:46 97.7 58 20 103/67 (79) 99 06/17/24 03:16 55 24 121/72 (88) 98 35 06/17/24 02:49 56 35 06/17/24 02:47 57 27 127/77 (94) 99 06/17/24 02:45 56 25 06/17/24 02:17 57 21 125/74 (91) 99 06/17/24 01:46 59 26 117/71 (86) 99 35 06/17/24 01:16 62 28 125/75 (92) 99 Laboratory: [ ] Laboratory: Test 06/17/24 05:25 06/17/24 04:16 06/16/24 03:50 06/15/24 21:20 Range/Units Whole Blood Glucose 150 H 70-110 MG/DL White Blood Count 18.6 H 4.8-10.8 K/uL Red Blood Count 2.72 L 4.50-6.20 MIL/uL Hemoglobin 9.6 L 14.0-18.0 g/dL Hematocrit 28.2 L 42-54 % Mean Corpuscular Volume 103.7 H 79-99 fL Mean Corpuscular Hemoglobin 35.3 H 27.0-33.0 pg Mean Corpuscular Hemoglobin Concent 34.0 32.0-36.0 g/dL Red Cell Distribution Width 13.1 11.0-15.5 % Platelet Count 134 # 130-400 K/uL Mean Platelet Volume 13.2 H 7.5-10.5 fL Immature Granulocyte % (Auto) 1.6 H 0-1 % Neutrophils (%) (Auto) 82.0 H 40.0-77.0 % Lymphocytes (%) (Auto) 8.2 L 21.0-51.0 % Monocytes (%) (Auto) 7.1 3.0-13.0 % Eosinophils (%) (Auto) 0.8 0.0-8.0 % Basophils (%) (Auto) 0.3 0.0-5.0 % Neutrophils # (Auto) 15.2 H 1.8-7.7 K/uL Lymphocytes # (Auto) 1.5 1.0-4.8 K/uL Monocytes # (Auto) 1.3 H 0.1-1.0 K/uL Eosinophils # (Auto) 0.15 0.00-0.70 K/uL Basophils # (Auto) 0.06 0.00-0.20 K/uL Absolute Immature Granulocyte (auto 0.29 0-1 K/uL Nucleated Red Blood Cells 0.1 0.0-0.19 % Sodium Level 141 136-145 mmol/L Potassium Level 3.5 3.5-5.1 mmol/L Chloride Level 109 101-111 mmol/L Carbon Dioxide Level 23 21-32 mmol/L Blood Urea Nitrogen 32 H 7-18 mg/dL Creatinine 1.2 0.5-1.3 mg/dL Glomerular Filtration Rate Calc 71 >90 mL/min Random Glucose 175 H 70-105 mg/dL Total Calcium 7.4 L 8.5-10.1 mg/dL Magnesium Level 2.10 1.80-2.40 mg/dL Total Bilirubin 3.1 H 0.2-1.0 mg/dL Aspartate Amino Transf (AST/SGOT) 64 H 10-37 U/L Alanine Aminotransferase (ALT/SGPT) 22 12-78 U/L Alkaline Phosphatase 126 50-136 U/L Total Protein 4.7 L 6.0-8.3 g/dL Albumin 1.6 L 3.5-5.0 g/dL Procalcitonin 3.99 H 0.05-0.5 ng/mL White Cell Morphology Comment CONSISTENT W/DIFF Red Blood Cell Morphology See comments Vancomycin Level Trough 12.9 10.0-20.0 UG/ML Test 06/15/24 09:51 Range/Units Lactic Acid Level 1.5 0.8-2.5 mmol/L C-Reactive Protein, Quantitative 84.00 H 0.5-3.0 mg/L Current Medications Medications (Trade) Dose Ordered Sig/Quan Route PRN Reason Start Time Stop Time Status Last Admin Dose Admin Acetaminophen (TYLenol 500MG TAB) 500 mg Q6H PRN PO TEMP < 101.1 AND/OR HEADACHE 06/09/24 18:00 07/09/24 17:59 06/14/24 17:35 500 MG Albumin Human 100 ml @ 50 mls/hr AD IV 06/12/24 11:00 06/14/24 10:59 DC 06/12/24 13:30 50 MLS/HR Artificial Tears (Artificial Tears) 1 DROP OR AD Q8H OU 06/09/24 09:00 07/09/24 08:59 06/17/24 08:19 1 DROP Cefepime HCl (MAXipime 2 gm vial) 2 gm Q12H IVPB 06/11/24 05:00 06/19/24 08:59 06/17/24 03:57 2 GM Cefepime HCl (MAXipime 2 gm vial) 2 gm Q8H IVPB 06/09/24 09:00 06/10/24 19:49 DC 06/10/24 16:44 2 GM Chlorhexidine Gluconate (Peridex) 15 ml Q8H MM 06/09/24 09:00 06/23/24 08:59 06/17/24 08:18 15 ML Dexmedetomidine/ Sodium Chloride (PRECEdex 400MCG/ 100ML-NS) 400 mcg PROTOCOL IV 06/11/24 20:30 07/11/24 20:29 06/17/24 01:14 400 MCG Dextrose/Sodium Chloride 1,000 ml @ 0 mls/hr AD IV 06/09/24 10:00 06/11/24 13:29 DC Fentanyl Citrate 100 ml @ 2.5 mls/hr PROTOCOL IV 06/09/24 06:30 06/12/24 13:28 DC 06/11/24 21:06 2.5 MLS/HR Folic Acid (FolVITE 5 MG/ML VIAL) 1 mg DAILY IV 06/09/24 18:00 07/09/24 17:59 06/17/24 08:21 1 MG Furosemide (LASix 20MG VIAL) 20 mg DAILY IV 06/13/24 09:00 06/13/24 09:20 DC 06/13/24 07:59 20 MG Furosemide (LASix 20MG VIAL) 20 mg Q12H IV 06/09/24 12:00 06/09/24 11:26 DC Furosemide (LASix 20MG VIAL) 20 mg Q6H6 IV 06/09/24 12:00 06/12/24 07:38 DC 06/12/24 06:46 20 MG Furosemide (LASix 20MG VIAL) 40 mg Q12H IV 06/12/24 08:00 06/12/24 14:58 DC 06/12/24 08:16 40 MG Heparin Sodium/ Dextrose 250 ml @ 0 mls/hr PROTOCOL IV 06/09/24 03:30 06/09/24 09:45 DC 06/09/24 03:31 10.78 MLS/HR Insulin Human Regular (humuLIN R 100 UNIT/ML 3ML) INSULIN SLIDING SCAL... Q6H6 SQ 06/11/24 12:00 06/13/24 11:22 DC 06/13/24 06:45 6 UNIT Insulin Human Regular (humuLIN R 100 UNIT/ML 3ML) INSULIN SLIDING SCAL... Q6H6 SQ 06/13/24 12:00 07/13/24 11:59 06/17/24 00:51 6 UNIT Insulin Human Regular 100 unit/ Sodium Chloride 101 ml @ 0 mls/hr PROTOCOL IV 06/09/24 10:00 06/11/24 13:29 DC 06/09/24 11:41 1 MLS/HR Ipratropium [place] (AtrovENT UD) 0.5 MG [id number] IH 06/14/24 14:00 07/14/24 13:59 06/17/24 06:41 0.5 MG Lactated Ringer's 1,000 ml @ 50 mls/hr Q20H IV 06/13/24 09:30 06/13/24 14:44 DC 06/13/24 11:18 50 MLS/HR Lactated Ringer's 1,000 ml @ 75 mls/hr [id number] IV 06/15/24 11:00 07/15/24 10:59 06/17/24 03:57 75 MLS/HR Lactated Ringer's (Lactated Ringers 1000ml) 500 ml BOLUS IV 06/15/24 10:00 06/15/24 12:31 DC 06/15/24 10:04 500 ML Lactulose (Constulose 20gm/ 30ml Udcup) 20 gm DAILY PO 06/12/24 09:00 07/12/24 08:59 06/17/24 08:17 20 GM Levofloxacin/ Dextrose (LEvaquIN 750 MG/ D5W 150 ML) 750 mg Q24H IV 06/09/24 06:30 06/09/24 08:29 DC Lorazepam (AtiVAN) 2 mg Q4H PRN IVP ALCOHOL WITHDRAWAL PROTOCOL 06/09/24 18:00 06/16/24 17:59 DC Lorazepam (AtiVAN) 4 mg Q2H PRN IVP ALCOHOL WITHDRAWAL PROTOCOL 06/09/24 18:00 06/16/24 17:59 DC Magnesium Sulfate 50 ml @ 0 mls/hr PROTOCOL IV 06/09/24 10:00 06/11/24 13:29 DC 06/11/24 07:13 25 MLS/HR Magnesium Sulfate 50 ml @ 0 mls/hr PROTOCOL PRN IV OTHER [SEE ORDER COMMENTS] 06/09/24 01:00 06/09/24 06:50 DC 06/09/24 01:03 25 MLS/HR Magnesium Sulfate 50 ml @ 0 mls/hr PROTOCOL PRN IV OTHER [SEE ORDER COMMENTS] 06/09/24 07:00 06/09/24 08:35 DC Magnesium Sulfate 50 ml @ 0 mls/hr PROTOCOL PRN IV low magnesium 06/09/24 08:30 06/09/24 09:46 DC Magnesium Sulfate 50 ml @ 0 mls/hr PROTOCOL PRN IV MAGNESIUM PROTOCOL 06/11/24 15:00 07/11/24 14:59 06/16/24 13:00 25 MLS/HR Metronidazole/ Sodium Chloride 100 ml @ 100 mls/hr Q8H6 IVPB 06/09/24 14:00 06/19/24 13:59 06/17/24 04:49 100 MLS/HR Midazolam HCl (Midazolam 100mg-0.9% NS 100ml) 100 ml PROTOCOL IV 06/09/24 15:30 06/12/24 10:33 DC 06/11/24 08:05 100 ML Midodrine (PROAMatine 5 MG TABLET) 10 mg TID PO 06/11/24 14:00 06/14/24 10:06 DC 06/14/24 07:47 10 MG Midodrine (PROAMatine 5 MG TABLET) 15 mg TID PO 06/14/24 14:00 07/14/24 13:59 06/17/24 08:18 15 MG Multivitamins Therapeutic (Multivitamin Tablet) 1 tab DAILY PO 06/10/24 09:00 07/10/24 08:59 06/17/24 08:17 1 TAB Norepinephrine Bitartrate (Norepineph 16 Mg/250ml NS Premix) HIGH ALERT Init... PROTOCOL IV 06/09/24 12:30 07/09/24 12:29 06/13/24 19:21 16 MG Octreotide Acetate 1250 mcg/ Sodium Chloride 250 ml @ 0 mls/hr PROTOCOL IV 06/09/24 08:30 06/13/24 13:43 DC 06/11/24 13:17 5 MLS/HR Octreotide Acetate 500 mcg/ Sodium Chloride 100 ml @ 0 mls/hr PROTOCOL IV 06/09/24 04:30 06/09/24 08:13 DC 06/09/24 05:50 5 MLS/HR Ondansetron HCl (zoFRAN 4MG INJ) 4 mg Q4H PRN IV NAUSEA 06/09/24 18:00 07/09/24 17:59 Pantoprazole Sodium (PROTonix 40MG INJ) 40 mg BID IVP 06/11/24 21:00 07/11/24 20:59 06/17/24 08:18 40 MG Pantoprazole Sodium 80 mg/ Sodium Chloride 100 ml @ 10 mls/hr Q10H IVP 06/09/24 04:00 06/11/24 13:24 DC 06/11/24 08:04 10 MLS/HR Pharmacy Profile Note (Pharmacy Communication) 1 each PROTOCOL PRN MISC ETOH Withdrawal Score changes 06/09/24 18:00 06/16/24 17:59 DC Phenylephrine HCl 10 mg/Sodium Chloride 250 ml @ 0 mls/hr PROTOCOL PRN IV PROTOCOL 06/09/24 07:00 07/09/24 06:59 06/09/24 09:27 96 MLS/HR Potassium Chloride 20 meq/ Sodium Chloride 1,010 ml @ 0 mls/hr PROTOCOL IV 06/09/24 10:00 06/11/24 13:29 DC Potassium Chloride/Dextrose/ Sod Cl 1,000 ml @ 0 mls/hr AD IV 06/09/24 10:00 06/11/24 13:29 DC Potassium Chloride 100 ml @ 50 mls/hr AD PRN IV POTASSIUM PROTOCOL 06/09/24 07:00 06/09/24 08:34 DC Potassium Chloride 100 ml @ 50 mls/hr AD PRN IV POTASSIUM PROTOCOL 06/09/24 08:30 07/09/24 08:29 06/13/24 16:38 50 MLS/HR Potassium Chloride 100 ml @ 100 mls/hr AD PRN IV POTASSIUM PROTOCOL 06/09/24 08:30 06/09/24 08:41 DC Potassium Chloride (K-Dur/Klor-Con 20meq) 20 meq AD PRN PO POTASSIUM PROTOCOL 06/09/24 08:30 07/09/24 08:29 Potassium Chloride (KCl 10% Elixir 20meq/15ml) 20 meq AD PRN PO POTASSIUM PROTOCOL 06/09/24 08:30 07/09/24 08:29 06/17/24 08:17 20 MEQ Propofol (DIPRivan 1000MG/ 100ML) 1,000 mg PROTOCOL PRN IV SEDATION 06/14/24 17:30 07/14/24 17:29 Sodium Bicarbonate 150 meq/Dextrose 1,150 ml @ 150 mls/hr Q7H40M IVP 06/09/24 00:30 06/09/24 18:11 DC 06/09/24 01:18 150 MLS/HR Sodium Chloride 1,000 ml @ 200 mls/hr PROTOCOL IV 06/09/24 10:00 06/11/24 13:29 DC Thiamine HCl (Vitamin B-1) 300 mg DAILY IV 06/09/24 18:00 07/09/24 17:59 06/17/24 08:18 300 MG Vancomycin HCl 250 ml @ 125 mls/hr Q12H IV 06/09/24 22:00 06/10/24 21:50 DC 06/10/24 10:06 125 MLS/HR Vancomycin HCl 250 ml @ 125 mls/hr Q24H IV 06/11/24 22:00 06/12/24 21:39 DC 06/11/24 21:10 125 MLS/HR Vancomycin HCl 250 ml @ 125 mls/hr Q24H IV 06/13/24 22:00 06/23/24 21:59 06/16/24 22:25 125 MLS/HR Vancomycin HCl (Vancomycin Protocol) 1 each AD IV 06/09/24 09:00 06/23/24 08:59 Vasopressin 20 units/Sodium Chloride 100 ml @ 0 mls/hr PROTOCOL IV 06/09/24 07:00 07/09/24 06:59 06/09/24 08:20 9 MLS/HR Wound Care/ Dressing Products (Venelex Ointment) 1 APPL TID TP 06/14/24 21:00 07/14/24 20:59 06/17/24 08:19 1 GM Diagnostics / Radiology: [COPY/PASTE HERE IF NO REPORTS PLEASE DELETE SECTION] Assessment: Gastric ulcer Acute blood loss anemia Cirrhosis Plan: Continue GI prophylaxis Advance diet as tolerated Avoid NSAIDs Antireflux measures Monitor H&H and transfuse as needed Call with questions, concerns or change in clinical status Patient to follow-up at clinic post discharge Thank you for this consult LISA FRASER Jun 17, 2024 09:09
[2024-06-17 09:40] LABS: ABG BASE EXCESS -3.1 mmol/L (-2.0-3.0); ABG HCO3 19.9 mmol/L (21.0-28.0); ABG OXYGEN SATURATION 96.4 % (94.0-98.0); ABG PCO2 30 mmHg (35-48); ABG PH 7.433 (7.350-7.450); DEVICE COMMENT LR RICHARD; PO2, ARTERIAL BG 80.7 mmHg (83.0-108.0); VENT MODE, BG PSV-CPAP PS5 (ROOM AIR)
--- NOTE | 2024-06-17 09:42 | PN ---
[facility] PROGRESS NOTE Date Patient Seen: Jun 17, 2024 Time of Visit: 09:42 Supervising Physician: Dr. Mccollum Primary Care Physician: Self Referral, Outpatient Specialists: Inpatient Consults: Dr Mena. 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 He has less pressor support only on Levophed today at 0.4 micrograms/kilogram per minute. He is still critically ill. Current vital signs and blood pressure 128/72 respiratory rate of 24 saturating 95% with FiO2 of 70%, heart rate 96 beats per minute, he developed a fever yesterday of 101.1 in the last 24 hours. He continues antibiotics with vanco cefepime and Flagyl. Sister is at the bedside who answered a few questions in regards to his medical history. She reports she has not been very informed of patient for the last three years but she reports patient has been told he has liver cirrhosis at least three years ago. He was told that if he did in quit drinking that he could within the next year. She also reports patient has heart problems and at one point he was placed on a LifeVest for heart failure. Urine output 2.3 L with a balance of-483 mL. On laboratory WBCs are 11.2 H&H is 10.1/29.7 seemed to be stable. Platelet count 59 K decreased from yesterday which was 91 K. Latest ABG with a pH of 7.35 pCO2 of 33 PO2 of 251 and bicarb of 17.9 base excess-6.7 improvement from yesterday. Ventilator Settings Adjusted To Assist Control Volume Control Tidal Volume Of 425 Respiratory Rate Of 24 Fio2 Of 70% And Peep Of 5. 2D echo shows EF of 40% with grade 1 diastolic dysfunction. Venous ultrasound with normal bilateral lower extremity venous Doppler. Ultrasound of the abdomen with moderate to marked hepatic steatosis, the liver is enlarged at 17 cm., ascites otherwise unremarkable exam including no abnormal per has been. Patient has a MELD score of 19 point which is 19.6% of estimated 3month mortality. EGD for today has been canceled per GI due to pt still on pressor support. Pt's sister was at the bedside and has requested for pt code status to be changed to DNR. 06/11/24: Patient continues critically ill currently on Levophed at 0.04 micrograms/kilogram per minute, fentanyl 125 micrograms/hour, Versed weaning at 4 milligrams/hour. He continues on Sandostatin drip and Protonix drip. We will switch to Protonix 40 ivp BID for now. Patient has been afebrile heart rate in the 80s hemodynamically improving blood pressure 108/68 with a map of 81 respi ratory rate adjusted to 18 saturating 97% with a FiO2 45% on the vent, current settings of assist control volume control tidal volume of 425 respiratory rate of 18 FiO2 of 45 and PEEP of five. Prior ABGs showed a pH of 7.51, pCO2 of 31 PO2 of 140 and bicarb of 24.2. Chest x-ray shows pulmonary pattern has been for no worrisome interval changes have taken place. Stable exam. ET tube 6.5 cm from the louis communicated with respiratory for insertion in 1.5 cm. We will continue to wean off sedation to assess mental status. once pt breathing over the vent we may start SBT. 06/12/24-patient assessed in room 206 ICU. As per RN no major overnight events. Has been off sedation since seven in the morning fentanyl and Versed has been turned off. We will assess respiratory status due to right now patient is still breathing on the vent and once he breathe over the vent we can start spontaneous breathing trials. Patient continues on low-dose Levophed at 0.04 micrograms/kilograms per minute attempting to wean off pressors. Hemodynamically stable at this time with blood pressure 107/71 heart rate of 90 respiratory rate of 13 saturating 97% with a FiO2 of 45%. Latest ABGs show pH of 7.42 pCO2 of 38 PO2 of 114 bicarb 24.7 O2 saturation 98.3 weaning on the FiO2. Input was 3.7 L in the last 24 hours with a balance of-2.7 L. he was on Lasix 40 mg IV push q.12 hours we will decreased now to Lasix 20 mg IV push daily which is equivalent to his Lasix 40 mg p.o. home medication. On laboratory WBCs are 10.9 trending down with the improvement H&H is stable 10.1/29.8 with a platelet count of 55 K. chemistries sodium 147 BUN 22 creatinine 1.4 GFR of 59 improving. Glucose of 197 mg/dL total protein 5.9 albumin 2.3. Sister at the bedside. I updated her with today is findings and answered all her questions. Inform her of the plan of care and she verbalized agreement. 06/13/24-patient assessed in room 206 in the ICU. This morning he is off pressors hemodynamically stable blood pressure 105/71 with a heart rate of 100 saturating 94% with a FiO2 of 45% on the vent breathing slightly over the vent at 18 with a rate on the vent of 14 and has been afebrile. Patient tolerated CPAP trials yesterday. Patient with minor movements and grimacing to face not fully awake and following commands. He has been off sedation x2 days. We will order CT head and brain without contrast to rule CVA. Urine output 2.7 L with a balance of -1.9. On laboratory WBCs are 9.1 H&H is 9.1/27.3 platelet count is 59 K. patient has been NPO due to GI bleed and we will start LR at a low-rate of 50 mL/hour. Patient may be encephalopathic from hypernatremia sodium of 153. Potassium of 3.1 chloride 113 carbon dioxide 30 BUN of 34 creatinine of 1.4 and GFR 59. Glucose of 212 mg/dL adjusted insulin sliding scale to #2 for hyperglycemia. Otherwise chest x-ray shows stable exam no worrisome interval changes. ET tube readjusted inserted 1.5 cm in per RT. We will follow GI recommendations in regards to a possible endoscopies since patient is off pressors and hemodynamically stable. CT of the head and brain without contrast ordered and is pending to be resulted. 06/14/2024: At the time of my evaluation, the patient is lying bed. Sister was present at the bedside during my visit. The patient has been off sedation x2 days and is still not arousable, RASS score of -5. CT head done on 06/13/2024, showed no concerning intracranial abnormality. He remains intubated and mechanically vented. Vital signs are in the hypotensive range systolic in the 80s with a map of 62, this was off Levophed. The patient continues on feeding through the OGT for nutritional support. I and O shows a net balance of 1129.0. Laboratory data today, showed stable WBC count, low H&H and platelet count. Chemistry panel showed no derangement of concern. Staff nurse showed no report of recurrent bleed. No new complaint. 06/15/2024: At the time of my evaluation, the patient is lying in bed. The staff nurses present at the bedside as well as family members. Per the staff nurse, the patient was weaned off sedation and became very agitated overnight. His Precedex was resumed and he is currently RASS score of -2. The patient remains intubated and mechanically vented. ACVC rate of 12, TV 425, peep of 5 and FiO2 35%. On the monitor, the patient is hypotensive systolic in the 80s. Currently, was off Levophed and continues on midodrine. The patient continues on nutritional support via OGT and no report of nausea, vomiting or diarrhea. The patient remains with Gomez catheter in place abran color urine. Net balance on I's and O's of 1797.8. On labs, the was a increase in WBC count from 9.4 yesterday to 15.5 today. Cultures are negative. No acute events noted overnight. No other complaint. 06/16/2024: At the time of my evaluation, the patient was lying in bed. Per the staff nurse, the patient has been off sedation since this a.m.. RASS score of -2. The patient remains intubated and mechanically vented currently on SBT. Chest x-ray showed bilateral effusion. The patient continues on antibiotic coverage with cefepime, vanco and Flagyl Vital signs are hemodynamically stable on low-dose Levophed and high dose midodrine. There was no complaint of chest pain. There was no nausea, vomiting or diarrhea. Patient continues with Gomez catheter in place draining dark abran colored urine and has a net balance of 1939.8. On labs today, there was a increase in WBC count to 18.1, H and H showed a drop from 10.3/30.6-9.3/28.2. Chemistry panel showed a slightly lower potassium to 3.4 and a magnesium of 1.70. Liver parameters showed a total bili of 30.0, AST of 45, ALT is 15 and alk-phos of 96. Otherwise, no other complaint. 06/17/2024: At the time of my evaluation, the patient was lying in bed. Per the staff nurse, the patient has been off sedation since this a.m.. RASS score of 0. The patient remains intubated and mechanically vented currently on SBT. Chest x-ray showed bilateral effusion. The patient continues on antibiotic coverage with cefepime, vanco and Flagyl Vital signs are hemodynamically stable currently off Levophed and high dose midodrine. There was no complaint of chest pain. Today, the patient's abdomen was noted more distended than usual. There was no nausea, vomiting or diarrhea. Patient continues with Gomez catheter in place draining dark abran colored urine and urine output over the last24 hours was 900 mL with a net balance of 3716.6. On labs today, there was a increase in WBC count to 18.6, H and H remained stable. Chemistry panel showed a slightly lower potassium to 3.5 and a magnesium of 2.10. Liver parameters showed a total bili of 3.1, AST of 64, ALT is 22 and alk-phos of 96. Otherwise, no other complaint. REVIEW OF SYSTEMS: Unable to perform due to patient's intubated. PHYSICAL EXAM: GENERAL: Intubated off sedation HEENT: Sclera non icteric, dry mucosa NECK: Supple, no JVD, trachea midline LUNGS: Diminished breath sounds bilaterally. No wheezes HEART: Regular rate and rhythm. Normal S1 and S2, without murmurs ABD: Abdomen soft, nontender. Bowel sounds present EXT: No clubbing cyanosis , swelling to bilateral lower extremities. NEURO: Intubated off sedation Vital Signs (last 8hr) Date Time Temp Pulse Resp B/P (MAP) Pulse Ox O2 Delivery O2 Flow Rate FiO2 06/17/24 09:13 61 35 06/17/24 07:34 55 06/17/24 07:30 62 26 92/61 (71) 99 35 06/17/24 07:00 56 26 94/56 (69) 100 35 06/17/24 07:00 97.3 06/17/24 07:00 35 06/17/24 07:00 35 06/17/24 06:43 56 27 06/17/24 06:38 59 35 06/17/24 04:00 35 06/17/24 04:00 100 Ventilator+ 35 06/17/24 03:46 97.7 58 20 103/67 (79) 99 06/17/24 03:16 55 24 121/72 (88) 98 35 06/17/24 02:49 56 35 06/17/24 02:47 57 27 127/77 (94) 99 06/17/24 02:45 56 25 06/17/24 02:17 57 21 125/74 (91) 99 06/17/24 01:46 59 26 117/71 (86) 99 35 LABS: Hematology Labs: Test 06/17/24 04:16 06/16/24 03:50 Range/Units White Blood Count 18.6 H 4.8-10.8 K/uL Red Blood Count 2.72 L 4.50-6.20 MIL/uL Hemoglobin 9.6 L 14.0-18.0 g/dL Hematocrit 28.2 L 42-54 % Mean Corpuscular Volume 103.7 H 79-99 fL Mean Corpuscular Hemoglobin 35.3 H 27.0-33.0 pg Mean Corpuscular Hemoglobin Concent 34.0 32.0-36.0 g/dL Red Cell Distribution Width 13.1 11.0-15.5 % Platelet Count 134 # 130-400 K/uL Mean Platelet Volume 13.2 H 7.5-10.5 fL Immature Granulocyte % (Auto) 1.6 H 0-1 % Neutrophils (%) (Auto) 82.0 H 40.0-77.0 % Lymphocytes (%) (Auto) 8.2 L 21.0-51.0 % Monocytes (%) (Auto) 7.1 3.0-13.0 % Eosinophils (%) (Auto) 0.8 0.0-8.0 % Basophils (%) (Auto) 0.3 0.0-5.0 % Neutrophils # (Auto) 15.2 H 1.8-7.7 K/uL Lymphocytes # (Auto) 1.5 1.0-4.8 K/uL Monocytes # (Auto) 1.3 H 0.1-1.0 K/uL Eosinophils # (Auto) 0.15 0.00-0.70 K/uL Basophils # (Auto) 0.06 0.00-0.20 K/uL Absolute Immature Granulocyte (auto 0.29 0-1 K/uL Nucleated Red Blood Cells 0.1 0.0-0.19 % White Cell Morphology Comment CONSISTENT W/DIFF Red Blood Cell Morphology See comments Chemistry Labs: Test 06/17/24 05:25 06/17/24 04:16 06/15/24 09:51 Range/Units Whole Blood Glucose 150 H 70-110 MG/DL Sodium Level 141 136-145 mmol/L Potassium Level 3.5 3.5-5.1 mmol/L Chloride Level 109 101-111 mmol/L Carbon Dioxide Level 23 21-32 mmol/L Blood Urea Nitrogen 32 H 7-18 mg/dL Creatinine 1.2 0.5-1.3 mg/dL Glomerular Filtration Rate Calc 71 >90 mL/min Random Glucose 175 H 70-105 mg/dL Total Calcium 7.4 L 8.5-10.1 mg/dL Magnesium Level 2.10 1.80-2.40 mg/dL Total Bilirubin 3.1 H 0.2-1.0 mg/dL Aspartate Amino Transf (AST/SGOT) 64 H 10-37 U/L Alanine Aminotransferase (ALT/SGPT) 22 12-78 U/L Alkaline Phosphatase 126 50-136 U/L Total Protein 4.7 L 6.0-8.3 g/dL Albumin 1.6 L 3.5-5.0 g/dL Procalcitonin 3.99 H 0.05-0.5 ng/mL Lactic Acid Level 1.5 0.8-2.5 mmol/L C-Reactive Protein, Quantitative 84.00 H 0.5-3.0 mg/L DIAGNOSTICS / RADIOLOGY RESULTS: [ ] PLAN Daily sedation vacation. daily SBT's CT head and brain without contrast Precedex only if absolutely needed. Change Protonix gtt to IVP BID LR at 50 mL/hour for light hydration due to NPO status. Follow GI recommendations: Endoscopy? 06/14/2024: For now, we are going to continue current management for the patient. He will remain off of sedation and we will monitor his level of consciousness. I am going to repeat CT head/brain without contrast in a.m. and we will continue to correct any metabolic abnormalities that may affect his level of consciousness. Patient will remain intubated and we will continue with daily spontaneous breathing trials. I am going to increase the midodrine to 15 mg 3 times daily and we will monitor for bradycardic events. We will monitor the vital signs and heart rate. We will follow GI as planned on the possibility for endoscopic evaluation and we will continue to monitor for any recurrent bleed. The patient continue on Protonix IV twice daily. Missile [employer] Pilot on board due to the anemia. Blood, urine and sputum cultures are negative. Patient is developing a DTI to the buttocks for which we will consult contract law specialist. We will monitor the patient's progress and response to management. Patient remains critically ill and his prognosis is poor. Per the sister's input, if the patient would require trach and PEG, they might opt against it, patient is a DNR. We will continue to provide general supportive care, GI and DVT prophylaxis. Further orders per attending MD and hospital course. 06/15/2024: For now, we are going to continue current management for the patient. He will remain mechanically vented for now. We will attempt weaning trials once he is hemodynamically stable. We will resume the Levophed and tit rate to maintain map above 65. We will put the patient on IV LR give a 500 mL bolus then continue at 75 mL/hour. We will monitor the blood pressure trend and adjust as necessary. We will continue feeding through the OGT and we will monitor for nausea, vomiting or diarrhea. We will follow the input of the treating specialist. We will monitor the patient's progress and response to management. We will continue to provide general supportive care, GI and DVT prophylaxis. Further orders per attending MD and hospital course. 06/16/2024: For now, we are going to continue current management for the patient. The patient for now we will remain off sedation. We will continue with SBTs in attempt to wean off the vent, possibly in the upcoming days. The patient is going to continue on antibiotic coverage as ordered. We will also continue on bronchodilator therapy. We will give the patient a dose of IV Lasix 20 mg x1 now. We will repeat a chest x-ray in a.m. We will monitor for any arrhythmias or other cardiac events. The patient will continue to feed on OGT with Vital HP. We will monitor the urinary output and bowel activity. Because of the increasing WBCs, I am going to panculture the patient once again and if no improvement of WBCs in the next 24 hours, we will broaden antibiotic spectrum. We will repeat surveillance labs in the morning with inclusion of a procalcitonin level. We will monitor the patient's progress and response to management. We will continue to provide general supportive care, GI and DVT prophylaxis. Further orders per attending MD and hospital course. 06/17/2024: For now, we are going to continue current management for the patient. The patient for now we will remain off sedation. We will continue with SBTs in attempt to wean off the vent, possibly today. The patient is going to continue on antibiotic coverage as ordered. We will also continue on [facility] hodilator therapy. We will repeat a chest x-ray in a.m. We will monitor for any arrhythmias or other cardiac events. I am going to challenge the patient with a dose of albumin and monitor the blood pressure trend. The patient will continue to feed on OGT with Vital HP. We will monitor the urinary output and bowel activity. I am going to order a KUB due to the abdominal distention. A sputum culture showing 1+ Gram-negative rods, blood cultures x2 were negative. We will repeat surveillance labs in the morning with inclusion of a procalcitonin level has significantly improved to 3.99. Infectious Disease specialist was consulted. We will monitor the patient's progress and response to management. We will continue to provide general supportive care, GI and DVT prophylaxis. Further orders per attending MD and hospital course. NEURO: Minimize central acting medications as possible. Fall Precautions. Well lighted room through the day and minimize interruptions through the night to prevent acute delirium. PULMONARY: Supplemental 02 as needed Titrate Fio2 to keep Spo2 > or = 90% DuoNebs and CPT as needed IS hourly while awake for pulmonary hygiene Out of bed to chair as tolerated VAP Bundle Vent/BIPAP : Titrate to maintain optimal ventilation and oxygen saturation. Daily SBTs. CARDIOVASCULAR: Follow hemodynamics. Titrate vasopressor to keep MAP >65 or systolic blood pressure >95mmHg Cardiac monitoring Drips:: None LINES: RT IJ CVC PIV GI & NUTRITION: Continue nutritional support Aspirations precautions Prokinetic agents and laxatives as needed To low intermittent suction KIDNEYS & ELECTROLYTES: Strict monitoring of intake and output Daily weights Avoid nephrotoxic agents Monitor electrolytes and replace as needed Goal urine output of 30mL/hr or 0.5mL/kg/hr Monitor electrolytes and replace accordingly ENDOCRINE: Goal blood glucose between 100-180 at all times. INFECTIOUS DISEASE: Trend temperature. Salmeron-culture if febrile. Micro: Urine culture no growth Blood cultures no growth Respiratory cultures no growth Antibiotics: Vancomycin Cefepime Flagyl HEMATOLOGY & COAGULATION: Monitor H&H. Keep Hgb > 7 Transfuse 1 unit of PRBC for Hgb < 7 Transfuse 1 pack of platelets of platelets < 20, 000 Watch for any signs and symptoms of bleeding SKIN: Pressure ulcer prevention per facility protocol dispatch specialist on board Rehab: PT/OT Prophylaxis: GI: Protonix IV 40mg BID DVT: SCDs due to GI bleed. Code Status: Full Resuscitation Disposition: ICU Other: Total patient care time exceeds 50 minutes excluding all procedures. Case was discussed and seen with my supervising physician. The above plan was formulated and agreed upon. FATIMAH SANTIAGO NP Jun 17, 2024 09:42
--- NOTE | 2024-06-17 10:04 | PN ---
[facility] PROGRESS NOTE Date of Service: Jun 17, 2024 Time of Service: 10:[address] Byrd SUBJECTIVE: [06/12/24 53-year-old male who was admitted due to persistent nausea vomiting, patient also was noted with metabolic acidosis initially was placed on BiPAP support and patient decompensated immediately and was intubated. He is being managed by critical care team. He continues to be intubated on AC mode. Patient is still on pressor support. Continues with IV antibiotics, was started with furosemide 20 mg IV q.12 hours today. We will continue to monitor closely. Patient is still currently intubated. 06/13/24 Pt was seen by LICENSED AUDIOLOGIST and physician during rounding in room 206. Family member/sister at the bedside. Pt is s/p EGD today which showed non bleeding u lcers. CT Head/Brain negative. Per GI we can restart tube feedings. Pt off sedation . We will continue monitoring pt. AM labs 06/14/24 patient was seen by LICENSED AUDIOLOGIST and physician during rounding. Sister at the bedside. CT head brain is negative. Chest x-ray stable exam. Patient was already started on feeding tubes per dietary recommendations. Patient continues to be in ICU. Patient is off pressors hemodynamically stable. Patient is saturating 94% with FiO2 of 45 on vent with a rate of 18, rate on vent of 18 and has been afebrile. Patient not fully awakened and does not follow commands. Off sedation day 2. Labs reviewed. We will follow GI recommendation in regarding possible endoscopic exam. 06/15/24 patient was seen by LICENSED AUDIOLOGIST and physician during rounding in room 206. Sister at the bedside updated records to further plan. WBC today is 15.5 which has a significant increase from the prior day which was 9.6. Blood culture negative x2 for the past four days. Sputum final culture negative. Final urine culture negative. Chest x-ray stable exam. Head CT showed atrophy and chronic small- vessel ischemic changes. Patient was weaned off sedation and became very agitated overnight. The patient remains intubated and mechanically vented. ACVC rate of 12, TV 425, peep of 5 and FiO2 35%. Currently patient is off Levophed and continues to be on midodrine. Patient has a Gomez catheter in place abran color of the urine. We will continue to monitor patient in the meantime. A.m. labs 06/16/24 patient was seen by nurse practitioner physician during rounding in room 206. Family members at the bedside. Patient was evaluated by final canoe inspector and at this moment patient continues to be hypotensive requiring midodrine therapy. Olive Brine Tester does not want to place patient on aspirin therapy given the risk of bleeding.His left ventricular systolic function is reduced, however no confirmed diagnosis of coronary artery disease/ischemic cardiomyopathy. When patient is extubated and shows improvement, then they would like to repeat little bit echo to re-evaluate the LVEF. Precedex was resumed and is currently RASS score of negative two.ACVC rate of 12, TV 425, peep of 5 and FiO2 35%. On the monitor, the patient is hypotensive systolic in the 80s. The patient remains with Gomez catheter in place abran color urine. We will continue to monitor patient in the meantime. A.m. labs 06/17/24 patient was seen by nurse practitioner and physician during rounding. Patient is awake and follows commands. Patient continues to be on CPAP at this moment. No pressors no Precedex. We are waiting for ICU team for possible extubation today. We will follow up. A.m. labs REVIEW OF SYSTEMS Pt intubated PHYSICAL EXAM GENERAL APPEARANCE: The patient is awake, alert, and oriented, in no acute ca rdiopulmonary distress. NEUROLOGICAL: Cranial nerves II-XII grossly intact. Motor is 5/5 in bilateral upper and lower extremities proximal to distal. No sensory deficits. HEENT: Face is symmetric. Pupils are equal and reactive. Extraocular movements are intact. NECK: Supple. No JVD. No thyromegaly. No submental, submandibular, pre- /postauricular, occipital or supraclavicular lymphadenopathy. CHEST: Normal chest expansion. No Telemetry. LUNGS: Decreased bilateral breath sounds on the lower bases per auscultation CARDIOVASCULAR: Regular. S1 and S2 normal. No appreciable rubs, murmurs or gallops. ABDOMEN: Soft, nontender, and nondistended. There is no rebound, voluntary guarding, or rigidity. : Deferred. Gomez. EXTREMITIES: Non-edematous and not cyanotic. No clubbing. Good capillary r efill. SKIN: No skin breakdown. Vital Signs (last 8hr) Date Time Temp Pulse Resp B/P (MAP) Pulse Ox O2 Delivery O2 Flow Rate FiO2 06/17/24 09:30 59 22 92/55 (67) 100 35 06/17/24 09:13 61 35 06/17/24 09:00 58 31 81/54 (63) 98 35 06/17/24 08:30 56 23 87/48 (61) 99 35 06/17/24 08:15 100 CPAP+ 35 06/17/24 08:13 57 34 94/39 (57) 98 35 06/17/24 08:00 60 28 77/48 (58) 98 35 06/17/24 07:46 58 29 73/49 (57) 98 35 06/17/24 07:34 55 06/17/24 07:30 62 26 92/61 (71) 99 35 06/17/24 07:00 56 26 94/56 (69) 100 35 06/17/24 07:00 97.3 06/17/24 07:00 35 06/17/24 07:00 35 06/17/24 06:43 56 27 06/17/24 06:38 59 35 06/17/24 04:00 35 06/17/24 04:00 100 Ventilator+ 35 06/17/24 03:46 97.7 58 20 103/67 (79) 99 06/17/24 03:16 55 24 121/72 (88) 98 35 06/17/24 02:49 56 35 06/17/24 02:47 57 27 127/77 (94) 99 06/17/24 02:45 56 25 06/17/24 02:17 57 21 125/74 (91) 99 LABS: Laboratory: Test 06/17/24 09:38 06/17/24 05:25 06/17/24 04:16 06/16/24 03:50 Range/Units Blood Gas Specimen Type Arterial Arterial Blood pH 7.433 7.350-7.450 Arterial Blood Partial Pressure CO2 30 L 35-48 mmHg Arterial Blood Partial Pressure O2 80.7 L 83.0-108.0 mmHg Arterial Blood HCO3 19.9 L 21.0-28.0 mmol/L Arterial Blood Oxygen Saturation 96.4 94.0-98.0 % Arterial Blood Base Excess -3.1 L -2.0-3.0 mmol/L Blood Gas Temperature 37.0 35.5-37.0 CELSIUS Blood Gas Vent Mode PSV-CPAP PS5 ROOM AIR FiO2 35.0 % Blood Gas PEEP 5 cm H2O Blood Gas Specimen Comment LR LINDA Whole Blood Glucose 150 H 70-110 MG/DL White Blood Count 18.6 H 4.8-10.8 K/uL Red Blood Count 2.72 L 4.50-6.20 MIL/uL Hemoglobin 9.6 L 14.0-18.0 g/dL Hematocrit 28.2 L 42-54 % Mean Corpuscular Volume 103.7 H 79-99 fL Mean Corpuscular Hemoglobin 35.3 H 27.0-33.0 pg Mean Corpuscular Hemoglobin Concent 34.0 32.0-36.0 g/dL Red Cell Distribution Width 13.1 11.0-15.5 % Platelet Count 134 # 130-400 K/uL Mean Platelet Volume 13.2 H 7.5-10.5 fL Immature Granulocyte % (Auto) 1.6 H 0-1 % Neutrophils (%) (Auto) 82.0 H 40.0-77.0 % Lymphocytes (%) (Auto) 8.2 L 21.0-51.0 % Monocytes (%) (Auto) 7.1 3.0-13.0 % Eosinophils (%) (Auto) 0.8 0.0-8.0 % Basophils (%) (Auto) 0.3 0.0-5.0 % Neutrophils # (Auto) 15.2 H 1.8-7.7 K/uL Lymphocytes # (Auto) 1.5 1.0-4.8 K/uL Monocytes # (Auto) 1.3 H 0.1-1.0 K/uL Eosinophils # (Auto) 0.15 0.00-0.70 K/uL Basophils # (Auto) 0.06 0.00-0.20 K/uL Absolute Immature Granulocyte (auto 0.29 0-1 K/uL Nucleated Red Blood Cells 0.1 0.0-0.19 % Sodium Level 141 136-145 mmol/L Potassium Level 3.5 3.5-5.1 mmol/L Chloride Level 109 101-111 mmol/L Carbon Dioxide Level 23 21-32 mmol/L Blood Urea Nitrogen 32 H 7-18 mg/dL Creatinine 1.2 0.5-1.3 mg/dL Glomerular Filtration Rate Calc 71 >90 mL/min Random Glucose 175 H 70-105 mg/dL Total Calcium 7.4 L 8.5-10.1 mg/dL Magnesium Level 2.10 1.80-2.40 mg/dL Total Bilirubin 3.1 H 0.2-1.0 mg/dL Aspartate Amino Transf (AST/SGOT) 64 H 10-37 U/L Alanine Aminotransferase (ALT/SGPT) 22 12-78 U/L Alkaline Phosphatase 126 50-136 U/L Total Protein 4.7 L 6.0-8.3 g/dL Albumin 1.6 L 3.5-5.0 g/dL Procalcitonin 3.99 H 0.05-0.5 ng/mL White Cell Morphology Comment CONSISTENT W/DIFF Red Blood Cell Morphology See comments Test 06/15/24 21:20 Range/Units Vancomycin Level Trough 12.9 10.0-20.0 UG/ML Current Medications Medications (Trade) Dose Ordered Sig/Quan Route PRN Reason Start Time Stop Time Status Last Admin Dose Admin Acetaminophen (TYLenol 500MG TAB) 500 mg Q6H PRN PO TEMP < 101.1 AND/OR HEADACHE 06/09/24 18:00 07/09/24 17:59 06/14/24 17:35 500 MG Albumin Human 100 ml @ 50 mls/hr AD IV 06/12/24 11:00 06/14/24 10:59 DC 06/12/24 13:30 50 MLS/HR Artificial Tears (Artificial Tears) 1 DROP OR AD Q8H OU 06/09/24 09:00 07/09/24 08:59 06/17/24 08:19 1 DROP Cefepime HCl (MAXipime 2 gm vial) 2 gm Q12H IVPB 06/11/24 05:00 06/19/24 08:59 06/17/24 03:57 2 GM Cefepime HCl (MAXipime 2 gm vial) 2 gm Q8H IVPB 06/09/24 09:00 06/10/24 19:49 DC 06/10/24 16:44 2 GM Chlorhexidine Gluconate (Peridex) 15 ml Q8H MM 06/09/24 09:00 06/23/24 08:59 06/17/24 08:18 15 ML Dexmedetomidine/ Sodium Chloride (PRECEdex 400MCG/ 100ML-NS) 400 mcg PROTOCOL IV 06/11/24 20:30 07/11/24 20:29 06/17/24 01:14 400 MCG Dextrose/Sodium Chloride 1,000 ml @ 0 mls/hr AD IV 06/09/24 10:00 06/11/24 13:29 DC Fentanyl Citrate 100 ml @ 2.5 mls/hr PROTOCOL IV 06/09/24 06:30 06/12/24 13:28 DC 06/11/24 21:06 2.5 MLS/HR Folic Acid (FolVITE 5 MG/ML VIAL) 1 mg DAILY IV 06/09/24 18:00 07/09/24 17:59 06/17/24 08:21 1 MG Furosemide (LASix 20MG VIAL) 20 mg DAILY IV 06/13/24 09:00 06/13/24 09:20 DC 06/13/24 07:59 20 MG Furosemide (LASix 20MG VIAL) 20 mg Q12H IV 06/09/24 12:00 06/09/24 11:26 DC Furosemide (LASix 20MG VIAL) 20 mg Q6H6 IV 06/09/24 12:00 06/12/24 07:38 DC 06/12/24 06:46 20 MG Furosemide (LASix 20MG VIAL) 40 mg Q12H IV 06/12/24 08:00 06/12/24 14:58 DC 06/12/24 08:16 40 MG Heparin Sodium/ Dextrose 250 ml @ 0 mls/hr PROTOCOL IV 06/09/24 03:30 06/09/24 09:45 DC 06/09/24 03:31 10.78 MLS/HR Insulin Human Regular (humuLIN R 100 UNIT/ML 3ML) INSULIN SLIDING SCAL... Q6H6 SQ 06/11/24 12:00 06/13/24 11:22 DC 06/13/24 06:45 6 UNIT Insulin Human Regular (humuLIN R 100 UNIT/ML 3ML) INSULIN SLIDING SCAL... Q6H6 SQ 06/13/24 12:00 07/13/24 11:59 06/17/24 00:51 6 UNIT Insulin Human Regular 100 unit/ Sodium Chloride 101 ml @ 0 mls/hr PROTOCOL IV 06/09/24 10:00 06/11/24 13:29 DC 06/09/24 11:41 1 MLS/HR Ipratropium Manilla (AtrovENT UD) 0.5 MG [id number] IH 06/14/24 14:00 07/14/24 13:59 06/17/24 06:41 0.5 MG Lactated Ringer's 1,000 ml @ 50 mls/hr Q20H IV 06/13/24 09:30 06/13/24 14:44 DC 06/13/24 11:18 50 MLS/HR Lactated Ringer's 1,000 ml @ 75 mls/hr [id number] IV 06/15/24 11:00 06/17/24 09:36 DC 06/17/24 03:57 75 MLS/HR Lactated Ringer's (Lactated Ringers 1000ml) 500 ml BOLUS IV 06/15/24 10:00 06/15/24 12:31 DC 06/15/24 10:04 500 ML Lactulose (Constulose 20gm/ 30ml Udcup) 20 gm DAILY PO 06/12/24 09:00 07/12/24 08:59 06/17/24 08:17 20 GM Levofloxacin/ Dextrose (LEvaquIN 750 MG/ D5W 150 ML) 750 mg Q24H IV 06/09/24 06:30 06/09/24 08:29 DC Lorazepam (AtiVAN) 2 mg Q4H PRN IVP ALCOHOL WITHDRAWAL PROTOCOL 06/09/24 18:00 06/16/24 17:59 DC Lorazepam (AtiVAN) 4 mg Q2H PRN IVP ALCOHOL WITHDRAWAL PROTOCOL 06/09/24 18:00 06/16/24 17:59 DC Magnesium Sulfate 50 ml @ 0 mls/hr PROTOCOL IV 06/09/24 10:00 06/11/24 13:29 DC 06/11/24 07:13 25 MLS/HR Magnesium Sulfate 50 ml @ 0 mls/hr PROTOCOL PRN IV OTHER [SEE ORDER COMMENTS] 06/09/24 01:00 06/09/24 06:50 DC 06/09/24 01:03 25 MLS/HR Magnesium Sulfate 50 ml @ 0 mls/hr PROTOCOL PRN IV OTHER [SEE ORDER COMMENTS] 06/09/24 07:00 06/09/24 08:35 DC Magnesium Sulfate 50 ml @ 0 mls/hr PROTOCOL PRN IV low magnesium 06/09/24 08:30 06/09/24 09:46 DC Magnesium Sulfate 50 ml @ 0 mls/hr PROTOCOL PRN IV MAGNESIUM PROTOCOL 06/11/24 15:00 07/11/24 14:59 06/16/24 13:00 25 MLS/HR Metronidazole/ Sodium Chloride 100 ml @ 100 mls/hr Q8H6 IVPB 06/09/24 14:00 06/19/24 13:59 06/17/24 04:49 100 MLS/HR Midazolam HCl (Midazolam 100mg-0.9% NS 100ml) 100 ml PROTOCOL IV 06/09/24 15:30 06/12/24 10:33 DC 06/11/24 08:05 100 ML Midodrine (PROAMatine 5 MG TABLET) 10 mg TID PO 06/11/24 14:00 06/14/24 10:06 DC 06/14/24 07:47 10 MG Midodrine (PROAMatine 5 MG TABLET) 15 mg TID PO 06/14/24 14:00 07/14/24 13:59 06/17/24 08:18 15 MG Multivitamins Therapeutic (Multivitamin Tablet) 1 tab DAILY PO 06/10/24 09:00 07/10/24 08:59 06/17/24 08:17 1 TAB Norepinephrine Bitartrate (Norepineph 16 Mg/250ml NS Premix) HIGH ALERT Init... PROTOCOL IV 06/09/24 12:30 07/09/24 12:29 06/13/24 19:21 16 MG Octreotide Acetate 1250 mcg/ Sodium Chloride 250 ml @ 0 mls/hr PROTOCOL IV 06/09/24 08:30 06/13/24 13:43 DC 06/11/24 13:17 5 MLS/HR Octreotide Acetate 500 mcg/ Sodium Chloride 100 ml @ 0 mls/hr PROTOCOL IV 06/09/24 04:30 06/09/24 08:13 DC 06/09/24 05:50 5 MLS/HR Ondansetron HCl (zoFRAN 4MG INJ) 4 mg Q4H PRN IV NAUSEA 06/09/24 18:00 07/09/24 17:59 Pantoprazole Sodium (PROTonix 40MG INJ) 40 mg BID IVP 06/11/24 21:00 07/11/24 20:59 06/17/24 08:18 40 MG Pantoprazole Sodium 80 mg/ Sodium Chloride 100 ml @ 10 mls/hr Q10H IVP 06/09/24 04:00 06/11/24 13:24 DC 06/11/24 08:04 10 MLS/HR Pharmacy Profile Note (Pharmacy Communication) 1 each PROTOCOL PRN MISC ETOH Withdrawal Score changes 06/09/24 18:00 06/16/24 17:59 DC Phenylephrine HCl 10 mg/Sodium Chloride 250 ml @ 0 mls/hr PROTOCOL PRN IV PROTOCOL 06/09/24 07:00 07/09/24 06:59 06/09/24 09:27 96 MLS/HR Potassium Chloride 20 meq/ Sodium Chloride 1,010 ml @ 0 mls/hr PROTOCOL IV 06/09/24 10:00 06/11/24 13:29 DC Potassium Chloride/Dextrose/ Sod Cl 1,000 ml @ 0 mls/hr AD IV 06/09/24 10:00 06/11/24 13:29 DC Potassium Chloride 100 ml @ 50 mls/hr AD PRN IV POTASSIUM PROTOCOL 06/09/24 07:00 06/09/24 08:34 DC Potassium Chloride 100 ml @ 50 mls/hr AD PRN IV POTASSIUM PROTOCOL 06/09/24 08:30 07/09/24 08:29 06/13/24 16:38 50 MLS/HR Potassium Chloride 100 ml @ 100 mls/hr AD PRN IV POTASSIUM PROTOCOL 06/09/24 08:30 06/09/24 08:41 DC Potassium Chloride (K-Dur/Klor-Con 20meq) 20 meq AD PRN PO POTASSIUM PROTOCOL 06/09/24 08:30 07/09/24 08:29 Potassium Chloride (KCl 10% Elixir 20meq/15ml) 20 meq AD PRN PO POTASSIUM PROTOCOL 06/09/24 08:30 07/09/24 08:29 06/17/24 08:17 20 MEQ Propofol (DIPRivan 1000MG/ 100ML) 1,000 mg PROTOCOL PRN IV SEDATION 06/14/24 17:30 07/14/24 17:29 Sodium Bicarbonate 150 meq/Dextrose 1,150 ml @ 150 mls/hr Q7H40M IVP 06/09/24 00:30 06/09/24 18:11 DC 06/09/24 01:18 150 MLS/HR Sodium Chloride 1,000 ml @ 200 mls/hr PROTOCOL IV 06/09/24 10:00 06/11/24 13:29 DC Thiamine HCl (Vitamin B-1) 300 mg DAILY IV 06/09/24 18:00 07/09/24 17:59 06/17/24 08:18 300 MG Vancomycin HCl 250 ml @ 125 mls/hr Q12H IV 06/09/24 22:00 06/10/24 21:50 DC 06/10/24 10:06 125 MLS/HR Vancomycin HCl 250 ml @ 125 mls/hr Q24H IV 06/11/24 22:00 06/12/24 21:39 DC 06/11/24 21:10 125 MLS/HR Vancomycin HCl 250 ml @ 125 mls/hr Q24H IV 06/13/24 22:00 06/23/24 21:59 06/16/24 22:25 125 MLS/HR Vancomycin HCl (Vancomycin Protocol) 1 each AD IV 06/09/24 09:00 06/23/24 08:59 Vasopressin 20 units/Sodium Chloride 100 ml @ 0 mls/hr PROTOCOL IV 06/09/24 07:00 07/09/24 06:59 06/09/24 08:20 9 MLS/HR Wound Care/ Dressing Products (Venelex Ointment) 1 APPL TID TP 06/14/24 21:00 07/14/24 20:59 06/17/24 08:19 1 GM DIAGNOSTICS / RADIOLOGY: [ ] ASSESSMENT: Acute respiratory failure POA Septic shock, resolving Bilateral lower lobe bacterial pneumonia, POA Acute hepatic encephalopathy, POA Combined alcoholic and fatty liver cirrhosis, POA MELD Score 19 points (19.6% estimated three month mortality) NSTEMI type 2, 2/2 supply and demand mismatch POA Acute on chronic Stage I Diastolic Heart Failure w/ EF of 40% POA Elevated troponin R/O ACS POA Elevated D-dimer of 3989, negative for DVT, Well score for PE 3 ( Moderate score) Metabolic acidosis POA Ascites Hepatomegaly Acute blood loss anemia POA Acute upper and lower GI bleed, POA Acute thrombocytopenia POA Acute on chronic diastolic CHF POA Hyperglycemia POA Hypomagnesemia POA Positive for THC POA Active alcohol drinker POA Acute complicated cystitis POA Hypertension POA acute GI bleed POA s/p EGD 06/13/24 non bleeding ulcer PLAN: Possible extubation today Continue ICU admission Appreciate critical Care team, patient currently intubated, on AC mode Patient will continued to be NPO Feeding tube per dietary Patient continue IV antibiotics on vancomycin, cefepime Flagyl CT head brain without contrast showed atrophy Chest x-ray cleared stable Continue to monitor electrolytes and replete as necessary Appreciate recommendations from Cardiology, elevated troponin is likely in the setting of acute respiratory failure and suspected GI bleed, no plans for invasive cardiac workup at this time. Furosemide adjusted to 40 mg IV q.12 hours We will repeat labs in the morning Critical care time: Spent 35 minutes of critical care time with the patient. Reviewed the lab work, reconciled and updated patient's medications, and coordinated plan of care in ICU. Code Status: DNR Disposition: TBD Prognosis: Guarded NEURO: Minimize central acting medications as possible. Fall Precautions. Well lighted room through the day and minimize interruptions through the night to prevent acute delirium. Lactulose enema and recheck ammonia in am PULMONARY: Supplemental 02 as needed Titrate Fio2 to keep Spo2 > or = 90% DuoNebs and CPT as needed IS hourly while awake for pulmonary hygiene Out of bed to chair as tolerated VAP Bundle Vent/BIPAP Settings: Assist-control volume control with tidal volume of 425 respiratory rate of 14 FiO2 45% and PEEP of 5. Daily SBTs. CARDIOVASCULAR: Follow hemodynamics. Titrate vasopressor to keep MAP >65 or systolic blood pressure >95mmHg Cardiac monitoring GI & NUTRITION: Continue nutritional support Aspirations precautions Prokinetic agents and laxatives as needed KIDNEYS & ELECTROLYTES: Strict monitoring of intake and output Daily weights Avoid nephrotoxic agents Monitor electrolytes and replace as needed Goal urine output of 30mL/hr or 0.5mL/kg/hr Monitor electrolytes and replace accordingly ENDOCRINE: Maintain blood glucose between 100-180 at all times. Insulin sliding scale for blood glucose management Hypoglycemia and hyperglycemia protocol in place INFECTIOUS DISEASE: Trend temperature, WBC and procalcitonin level Follow cultures, deescalate antibiotics as soon as possible. Panculture if new onset fever HEMATOLOGY & COAGULATION: Monitor H&H. Keep Hgb > 7 Transfuse 1 unit of PRBC for Hgb < 7 Transfuse 1 pack of platelets of platelets < 20, 000 Watch for any signs and symptoms of bleeding SKIN: Pressure ulcer prevention per facility protocol Specialty mattress as needed ] ATTESTATION BY PHYSICIAN I have seen and examined the patient. I reviewed the documentation, medical decision making, and treatment plan as noted by the mid-level provider above. I agree with the findings and plan of care. January Byrd MD, KATARZYNA B SUSTAINMENT LOGISTICS ANALYST Jun 17, 2024 10:04
--- NOTE | 2024-06-17 10:53 | HMCIMG ---
Exam Type: ABD 1VW Clinical Information: Abdominal distention Comparison: None Findings: Multiple dilated small bowel loops are seen with air-fluid levels. This is consistent with small bowel obstruction. Follow-up is advised.
[2024-06-17] MEDS: ALBUMIN (HUMAN) 5% 250 ML IV SCH (10:54)
[2024-06-17 12:46] LABS: INR 1.66 (0.85-1.15); PROTHROMBIN TIME 17.7 SEC (9.6-11.6)
[2024-06-17 12:48] LABS: PARTIAL THROMBOPLASTIN TIME 46.7 SEC (26.3-35.5)
--- NOTE | 2024-06-17 15:29 | NUR ---
Nutrition f/u Reviewed labs, notes, and medications. Pt off pressors, on CPAP, b-complex, MVI, IV abx, elevated BUN 32, Cr WNL, BG150(H), Ca 7.4(L), elevated bilirubin3.1, vit. D 15.4, low CO2 30 per chart review. Wt via bed scale, vital HP 1.0, mild pitting, last BM 06/16/24, buttock ulcer per nursing. MAP @ 66, observed MAP @ 66, residual @ 700 ml 11/13/24 during visit. Communicated w/ Dietitian. Continue trickle feed of Vital 1.0 until Vital AF 1.2 is available. If residuals more than 500 ml stop tube feed for 2 hours. If repeated stop tube feed and contact MD per protocol Recommendations: Provide Vital 1.0 @ 25 mL/hr x 22 hrs + 250 mL Q4H Provides: 550 kcals, 22 g protein, 1958.7 ml per day -Provide goal rate of Vital AF 1.2 @ 50 ml/hr x 22 hrs + 250 ml Q4H once medically feasible Provides:1452 kcal, 91 gm pro, 2481 ml per day Monitor BM Monitor electrolytes Replenish electrolytes as protocol Monitor wts. Reweigh as available, Provide vit. D supplement per vit. D 15 Monitor TF tolerance + need for TF adjustments. Monitor residuals. Residuals more than 500 ml stop tube feed for 2 hours. If repeated stop tube feed and contact MD. Monitor care goals RD to follow + available for consultation by protocol. Addendum: 06/17/24 at [address] Amended: Links added.
--- NOTE | 2024-06-17 15:38 | HMCIMG ---
Exam Type: CHEST 1VW Clinical Information: PICC line placment Comparison: None Findings: Left PICC line is noted with tip within the distal superior vena cava. NORMAN Endotracheal tube is noted with tip approximately 5.9 cm from louis and no interval changes are seen otherwise. IMPRESSION: Endotracheal tube tip as noted.
--- NOTE | 2024-06-17 16:12 | PN ---
[facility] CARDIOLOGY PROGRESS NOTE Date Patient Seen: Jun 17, 2024 Time of Visit: 16:11 Interval History: Patient seen in ICU He is status post extubation He has not required vasopressor support Physical Examination: GENERAL: [No acute distress. LUNGS: [rales bilaterally, no distress, intubated] HEART: [Normal rate and rhythm. VASC: [Peripheral pulses +2 bilaterally.] SKIN: [warm, dry, distal extremities well perfused NEURO: [intubated. moves spontaneously. does not follow commands. Laboratory: [ ] Hematology Labs: Test 06/17/24 04:16 06/16/24 03:50 Range/Units White Blood Count 18.6 H 4.8-10.8 K/uL Red Blood Count 2.72 L 4.50-6.20 MIL/uL Hemoglobin 9.6 L 14.0-18.0 g/dL Hematocrit 28.2 L 42-54 % Mean Corpuscular Volume 103.7 H 79-99 fL Mean Corpuscular Hemoglobin 35.3 H 27.0-33.0 pg Mean Corpuscular Hemoglobin Concent 34.0 32.0-36.0 g/dL Red Cell Distribution Width 13.1 11.0-15.5 % Platelet Count 134 # 130-400 K/uL Mean Platelet Volume 13.2 H 7.5-10.5 fL Immature Granulocyte % (Auto) 1.6 H 0-1 % Neutrophils (%) (Auto) 82.0 H 40.0-77.0 % Lymphocytes (%) (Auto) 8.2 L 21.0-51.0 % Monocytes (%) (Auto) 7.1 3.0-13.0 % Eosinophils (%) (Auto) 0.8 0.0-8.0 % Basophils (%) (Auto) 0.3 0.0-5.0 % Neutrophils # (Auto) 15.2 H 1.8-7.7 K/uL Lymphocytes # (Auto) 1.5 1.0-4.8 K/uL Monocytes # (Auto) 1.3 H 0.1-1.0 K/uL Eosinophils # (Auto) 0.15 0.00-0.70 K/uL Basophils # (Auto) 0.06 0.00-0.20 K/uL Absolute Immature Granulocyte (auto 0.29 0-1 K/uL Nucleated Red Blood Cells 0.1 0.0-0.19 % White Cell Morphology Comment CONSISTENT W/DIFF Red Blood Cell Morphology See comments Chemistry Labs: Test 06/17/24 11:27 06/17/24 04:16 Range/Units Whole Blood Glucose 137 H 70-110 MG/DL Sodium Level 141 136-145 mmol/L Potassium Level 3.5 3.5-5.1 mmol/L Chloride Level 109 101-111 mmol/L Carbon Dioxide Level 23 21-32 mmol/L Blood Urea Nitrogen 32 H 7-18 mg/dL Creatinine 1.2 0.5-1.3 mg/dL Glomerular Filtration Rate Calc 71 >90 mL/min Random Glucose 175 H 70-105 mg/dL Total Calcium 7.4 L 8.5-10.1 mg/dL Magnesium Level 2.10 1.80-2.40 mg/dL Total Bilirubin 3.1 H 0.2-1.0 mg/dL Aspartate Amino Transf (AST/SGOT) 64 H 10-37 U/L Alanine Aminotransferase (ALT/SGPT) 22 12-78 U/L Alkaline Phosphatase 126 50-136 U/L Total Protein 4.7 L 6.0-8.3 g/dL Albumin 1.6 L 3.5-5.0 g/dL Procalcitonin 3.99 H 0.05-0.5 ng/mL Coagulation Labs: Test 06/17/24 11:55 Range/Units Prothrombin Time 17.7 H 9.6-11.6 SEC Prothromb Time International Ratio 1.66 H 0.85-1.15 Activated Partial Thromboplast Time 46.7 H 26.3-35.5 SEC Impression and Plan: Type II PR Acute on chronic diastolic congestive heart failure HFrEF 40% Acute respiratory failure, community acquired pneumonia, s/p intubation Pulmonary edema Suspected GI bleed - Upper endoscopy did not reveal active bleeding or varices and sandostatin was discontinued. Iron deficiency anemia Neutropenia improved/Thrombocytopenia persists, possible cirrhosis - platelet [place] has [place] [id number] during this hospitalization. Electrolyte derangement, hypokalemia Elevated D-dimer of 3989 HTN Positive for THC Metabolic acidosis POA Hyperglycemia POA Hypomagnesemia POA Active alcohol drinker POA Patient continues to be hypotensive requiring midodrine therapy. I do not have a strong indication for patient to be placed on aspirin therapy given his risk of bleeding. His left ventricular systolic function is reduced, however no confirmed diagnosis of coronary artery disease/ischemic cardiomyopathy. He is now extubated and not requiring vasopressor therapy, therefore I think reasonable to obtain repeat limited echo to re-evaluate the LVEF. Pending patient's recovery from acute illness, can consider noninvasive cardiac stress testing to evaluate for ischemia. TOM THOMPSON DO Jun 17, 2024 16:12
[2024-06-17] MEDS ORDERED: DIATR MEGLU/DIATRIZOATE SODIUM 30 ML BOTTLE ONE (16:22)
--- NOTE | 2024-06-17 16:38 | NUR ---
PREPPING WITH ORAL CONTRAST FOR CT EXAM.
[2024-06-17] MEDS: 0.9%NACL 1000ML 1,000 ML IV SCH (18:17)
[2024-06-17] MEDS: 0.9% NACL 500ML IV.SOLN 500 ML IV SCH (18:26)
--- NOTE | 2024-06-17 19:53 | NUR ---
Patient is alert and oriented x 4. Informed patient that his sister made his status DNR with no intubation as of 06/10/24. Patient was extubated today. Asked patient if his heart where to stop would he want us to do CPR. Patient stated yes that "he does not want to ". I asked patient do you want to be intubated again if it is medically necessary. Patient stated that he does want to be intubated if necessary. [facility] to inform provider of patients wishes. Addendum: 06/18/24 at 0309 by CAROL ALONZO RN RN Spoke to khushboo RECIO earlier informed him of patients pain 02/17 and patient wishing to be full code. Provider ordered for patient to be full code. Contacted sister and informed her of brothers wishes. Informed her that he is alert and oriented X 4 and able to make his own decisions. Provider khushboo also ordered 2 mg of morphine iv push X 1 dose.
--- NOTE | 2024-06-17 20:00 | HMCIMG ---
CT ABDOMEN/PELVIS W/O CONTRAST CLINICAL HISTORY: ABD DISTENDED COMPARISON: None TECHNIQUE: Sequential axial images of abdomen and pelvis without contrast and with sagittal and coronal reconstructions. CT was performed with one or more of the following dose reduction techniques: automated exposure control, adjustment of the mA and/or kV according to patient size, or use of iterative reconstruction technique FINDINGS: There is bilateral basilar segment atelectasis and small bilateral pleural effusions the liver appears cirrhotic. Spleen is unremarkable. Note is made of nrob-iw-vboqihrz ascites. Gallbladder demonstrates a thickened wall due to the ascites. Note is made of multiple pancreatic calcifications consistent with chronic pancreatitis. The adrenal glands are unremarkable. The kidneys and bladder appear grossly unremarkable. The bladder is decompressed secondary to Gomez catheter. There is contrast within the gastric lumen and small bowel with no identified bowel obstruction. There is no bulky abdominal or retroperitoneal lymphadenopathy. There is Schmorl's node within the superior endplate of L4. IMPRESSION: Likely cirrhosis with hfri-zj-jerjlwuq ascites. Bilateral pleural effusions with atelectasis. Chronic pancreatitis
[2024-06-17] MEDS: morPHINE 2 MG SYG ONE (21:22)
[2024-06-17] MEDS: morPHINE 2 MG SYG IVP ONE (21:23)
--- NOTE | 2024-06-17 21:29 | CONS ---
INFECTIOUS DISEASE CONSULTATION DATE OF SERVICE: 06/17/2024 REQUESTING PHYSICIAN: HOANG Nelson REASON FOR CONSULTATION: Sepsis. HISTORY OF PRESENT ILLNESS: A 53-year-old male with history of hypertension, CHF, chronic alcoholism with liver cirrhosis, who presented to the hospital with nausea, vomiting, shortness of breath. The patient's symptoms started 3 days prior to presentation. The patient found with sepsis, pneumonia and respiratory failure and was admitted to ICU. The patient remained on BiPAP therapy. The patient has been started on antibiotic, which include vancomycin, cefepime and Flagyl. WBC remained elevated. Influenza and COVID antigen came back negative. HIV test also was negative. Sputum culture shows normal rafia. CT chest shows extensive bilateral pneumonia. PAST MEDICAL HISTORY: * Hypertension. * CHF. * Chronic alcoholism. * Liver cirrhosis. PAST SURGICAL HISTORY: None. ALLERGIES: No known drug allergy. CURRENT MEDICATIONS: Include: * Thiamine. * Vancomycin. * Folic acid. * Midodrine. * Cefepime. * Tylenol. * Zofran. SOCIAL HISTORY: The patient is chronic alcoholic. Denies tobacco or illicit drug use. FAMILY HISTORY: Noncontributory. REVIEW OF SYSTEMS: Greater than 10 systems were reviewed, negatives as documented above. PHYSICAL EXAMINATION: GENERAL: Elderly male, ill looking, malnourished. VITAL SIGNS: Temperature 97.3, pulse is 69, respiratory 25, BP 118/60. EYES: No icterus. Pupils equal and reactive. HENT: Dry oral mucosa. No oral thrush seen. NECK: Supple, no JVD or thyromegaly. LUNGS: Crackles, no rhonchi. CARDIOVASCULAR: S1, S2 regular. No murmur heard. ABDOMEN: Distended with ascites, nontender. CENTRAL NERVOUS SYSTEM: Awake, alert, oriented x 3, bedbound debility. SKIN: No rashes, no itchiness. LYMPHATIC: No peripheral lymphadenopathy. EXTREMITIES: Pitting edema of upper and lower extremities. LABORATORY DATA: Sodium 141, potassium 3.5, BUN 32, creatinine 1.3. WBC 10.7, hemoglobin 9.6, platelet 134. Urine toxicology positive for marijuana. Urine culture, no growth. HIV test negative. Influenza antigen negative. COVID antigen test negative. Sputum culture shows normal rafia. Blood culture, no growth. RADIOLOGY: CT chest shows extensive bilateral infiltrates. ASSESSMENT: A 53-year-old male presented with shortness of breath. Current problem include: * Acute hypoxemic respiratory failure. * Multifocal pneumonia. * Thrombocytopenia. * Liver cirrhosis, ascites. * Malnutrition. * Debility. PLAN: * Continue critical support. * Continue pain management. * Continue cefepime. * Continue Flagyl. * Continue vancomycin. * Continue BiPAP therapy. * Continue thiamine. * Monitor electrolytes and correct as needed. * The patient will need paracentesis. Thank you for allowing me to participate in the care of this patient. TID: [id number] RECEIPT: [id number]
[2024-06-18] VITALS (49 sets, daily range): BP systolic 83–156; BP diastolic 42–86; PULSE 64–136; RESP 16–39; TEMP 97.6–98.5; O2SAT 95–100
--- NOTE | 2024-06-18 03:10 | NUR ---
Spoke to Jannette from [facility] and informed her of patients increasing heart rate. Informed provider that patient is not hypotensive, sating well on the pulse ox 95%, with a CVP of 6-7, afebrile, with glucose reading of 97. Patient scored a CIWA of 16. Provider ordered a one time dose of 1 mg ativan, chest xray in the morning, and a BNP.
[2024-06-18] MEDS: LORazepam 2 MG/ML 1 ML VIAL ONE (03:30)
[2024-06-18 03:40] LABS: ABG BASE EXCESS -6.7 mmol/L (-2.0-3.0); ABG HCO3 15.3 mmol/L (21.0-28.0); ABG OXYGEN SATURATION 95.4 % (94.0-98.0); ABG PCO2 23 mmHg (35-48); ABG PH 7.437 (7.350-7.450); DEVICE COMMENT RR RN JAMES; PO2, ARTERIAL BG 72.6 mmHg (83.0-108.0); VENT MODE, BG NC (ROOM AIR)
[2024-06-18 04:16] LABS: BASOPHILS # (AUTO) 0.06 K/uL (0.00-0.20); BASOPHILS % (AUTO) 0.3 % (0.0-5.0); EOSINOPHILS # (AUTO) 0.04 K/uL (0.00-0.70); EOSINOPHILS % (AUTO) 0.2 % (0.0-8.0); HEMATOCRIT 29.6 % (42-54); IMMATURE GRANULOCYTE ABSOLUTE 0.22 K/uL (0-1); LYMPHOCYTES # (AUTO) 1.1 K/uL (1.0-4.8); LYMPHOCYTES % (AUTO) 5.5 % (21.0-51.0); MEAN CORPUSCULAR HGB CONC 33.1 g/dL (32.0-36.0); MEAN CORPUSCULAR VOLUME 105.7 fL (79-99); MONOCYTES # (AUTO) 1.4 K/uL (0.1-1.0); MONOCYTES % (AUTO) 6.8 % (3.0-13.0); NEUTROPHILS % (AUTO) 86.1 % (40.0-77.0); PLATELET COUNT (AUTO) 173 K/uL (130-400); RED CELL DISTRIBUTION WIDTH 13.6 % (11.0-15.5); WHITE BLOOD COUNT (AUTO) 19.7 K/uL (4.8-10.8)
[2024-06-18] MEDS: LORazepam 2 MG/ML 1 ML VIAL IVP ONE (04:28)
[2024-06-18 04:33] LABS: BILIRUBIN,TOTAL 4.5 mg/dL (0.2-1.0); CREATININE 1.3 mg/dL (0.5-1.3); POTASSIUM 3.6 mmol/L (3.5-5.1); TOTAL PROTEIN, SERUM 5.4 g/dL (6.0-8.3)
--- NOTE | 2024-06-18 05:10 | NUR ---
Reported that patient is tachycardic again to jannette [employer] 130's to 140's. Patients is tachypneic with respiratory rate in the 30's. Patients morning ABG is showing patient is in compensated respiratory alkalosis. As per provider Jannette RECIO from [facility] go head and start precedex on patient.
--- NOTE | 2024-06-18 11:54 | PN ---
[facility] PROGRESS NOTE Date of Service: Jun 18, 2024 Time of Service: 11:50 SUBJECTIVE: [06/12/24 53-year-old male who was admitted due to persistent nausea vomiting, patient also was noted with metabolic acidosis initially was placed on BiPAP support and patient decompensated immediately and was intubated. He is being managed by critical care team. He continues to be intubated on AC mode. Patient is still on pressor support. Continues with IV antibiotics, was started with furosemide 20 mg IV q.12 hours today. We will continue to monitor closely. Patient is still currently intubated. 06/13/24 Pt was seen by CUPOLA MAN and physician during rounding in room 206. Family member/sister at the bedside. Pt is s/p EGD today which showed non bleeding ulcers. CT Head/Brain negative. Per GI we can restart tube feedings. Pt off sedation . We will continue monitoring pt. AM labs 06/14/24 patient was seen by CUPOLA MAN and physician during rounding. Sister at the bedside. CT head brain is negative. Chest x-ray stable exam. Patient was already started on feeding tubes per dietary recommendations. Patient continues to be in ICU. Patient is off pressors hemodynamically stable. Patient is saturating 94% with FiO2 of 45 on vent with a rate of 18, rate on vent of 18 and has been afebrile. Patient not fully awakened and does not follow commands. Off sedation day 2. Labs reviewed. We will follow GI recommendation in regarding possible endoscopic exam. 06/15/24 patient was seen by CUPOLA MAN and physician during rounding in room 206. Sister at the bedside updated records to further plan. WBC today is 15.5 which has a significant increase from the prior day which was 9.6. Blood culture negative x2 for the past four days. Sputum final culture negative. Final urine culture negative. Chest x-ray stable exam. Head CT showed atrophy and chronic small- vessel ischemic changes. Patient was weaned off sedation and became very agitated overnight. The patient remains intubated and mechanically vented. ACVC rate of 12, TV 425, peep of 5 and FiO2 35%. Currently patient is off Levophed and continues to be on midodrine. Patient has a Gomez catheter in place abran color of the urine. We will continue to monitor patient in the meantime. A.m. labs 06/16/24 patient was seen by nurse practitioner physician during rounding in room 206. Family members at the bedside. Patient was evaluated by rental management trainee and at this moment patient continues to be hypotensive requiring midodrine therapy. Barrel Rifler Button does not want to place patient on aspirin therapy given the risk of bleeding.His left ventricular systolic function is reduced, however no confirmed diagnosis of coronary artery disease/ischemic cardiomyopathy. When patient is extubated and shows improvement, then they would like to repeat little bit echo to re-evaluate the LVEF. Precedex was resumed and is currently RASS score of negative two.ACVC rate of 12, TV 425, peep of 5 and FiO2 35%. On the monitor, the patient is hypotensive systolic in the 80s. The patient remains with Gomez catheter in place abran color urine. We will continue to monitor patient in the meantime. A.m. labs 06/17/24 patient was seen by nurse practitioner and physician during rounding. Patient is awake and follows commands. Patient continues to be on CPAP at this moment. No pressors no Precedex. We are waiting for ICU team for possible extubation today. We will follow up. A.m. labs 06/18 patient is seen and examined at bedside, case discussed with the RN, patient is successfully extubated yesterday, was mildly restless, started on Precedex. During my visit he is awake, alert oriented x3, following commands. He is on supplemental oxygen via nasal cannula at 2 L saturating 99%. Hemodynamically stable. Patient evaluated by rental management trainee, patient admitted with a acute on chronic diastolic CHF with a LVEF 40%. Recommended to repeat limited echo to re-evaluate LVEF. Pending patient's recovery from acute illness can consider noninvasive cardiac stress testing to evaluate for ischemia. REVIEW OF SYSTEMS Pt intubated PHYSICAL EXAM GENERAL APPEARANCE: The patient is awake, alert, and oriented, in no acute cardiopulmonary distress. NEUROLOGICAL: Cranial nerves II-XII grossly intact. Motor is 5/5 in bilateral upper and lower extremities proximal to distal. No sensory deficits. HEENT: Face is symmetric. Pupils are equal and reactive. Extraocular movements are intact. NECK: Supple. No JVD. No thyromegaly. No submental, submandibular, pre- /postauricular, occipital or supraclavicular lymphadenopathy. CHEST: Normal chest expansion. No Telemetry. LUNGS: Decreased bilateral breath sounds on the lower bases per auscultation CARDIOVASCULAR: Regular. S1 and S2 normal. No appreciable rubs, murmurs or gallops. ABDOMEN: Soft, nontender, and nondistended. There is no rebound, voluntary guarding, or rigidity. : Deferred. Gomez. EXTREMITIES: Non-edematous and not cyanotic. No clubbing. Good capillary refill. SKIN: No skin breakdown. Vital Signs (last 8hr) Date Time Temp Pulse Resp B/P (MAP) Pulse Ox O2 Delivery O2 Flow Rate FiO2 06/18/24 11:10 78 25 06/18/24 10:00 75 23 90/63 (72) 100 28 06/18/24 09:00 80 36 95/62 (73) 95 28 06/18/24 08:45 99 Nasal Cannula* 2 40 Aerosol Mask+ 06/18/24 08:05 98.4 06/18/24 08:00 81 29 84/60 (68) 100 28 06/18/24 07:00 90 19 99 28 06/18/24 06:46 93 17 112/60 (77) 100 06/18/24 06:44 96 28 06/18/24 06:41 98 22 N/Cannula Low lpm 2.0 28 06/18/24 06:06 102 17 126/67 (86) 98 06/18/24 04:46 97.7 124 20 141/86 (104) 93 LABS: Laboratory: Test 06/18/24 11:27 06/18/24 04:08 06/18/24 03:38 06/17/24 11:55 Range/Units Whole Blood Glucose 117 H 70-110 MG/DL White Blood Count 19.7 H 4.8-10.8 K/uL Red Blood Count 2.80 L 4.50-6.20 MIL/uL Hemoglobin 9.8 L 14.0-18.0 g/dL Hematocrit 29.6 L 42-54 % Mean Corpuscular Volume 105.7 H 79-99 fL Mean Corpuscular Hemoglobin 35.0 H 27.0-33.0 pg Mean Corpuscular Hemoglobin Concent 33.1 32.0-36.0 g/dL Red Cell Distribution Width 13.6 11.0-15.5 % Platelet Count 173 # 130-400 K/uL Mean Platelet Volume 13.2 H 7.5-10.5 fL Immature Granulocyte % (Auto) 1.1 H 0-1 % Neutrophils (%) (Auto) 86.1 H 40.0-77.0 % Lymphocytes (%) (Auto) 5.5 L 21.0-51.0 % Monocytes (%) (Auto) 6.8 3.0-13.0 % Eosinophils (%) (Auto) 0.2 0.0-8.0 % Basophils (%) (Auto) 0.3 0.0-5.0 % Neutrophils # (Auto) 17.0 H 1.8-7.7 K/uL Lymphocytes # (Auto) 1.1 1.0-4.8 K/uL Monocytes # (Auto) 1.4 H 0.1-1.0 K/uL Eosinophils # (Auto) 0.04 0.00-0.70 K/uL Basophils # (Auto) 0.06 0.00-0.20 K/uL Absolute Immature Granulocyte (auto 0.22 0-1 K/uL Nucleated Red Blood Cells 0.0 0.0-0.19 % Sodium Level 144 136-145 mmol/L Potassium Level 3.6 3.5-5.1 mmol/L Chloride Level 110 101-111 mmol/L Carbon Dioxide Level 21 21-32 mmol/L Blood Urea Nitrogen 33 H 7-18 mg/dL Creatinine 1.3 0.5-1.3 mg/dL Glomerular Filtration Rate Calc 65 >90 mL/min Random Glucose 129 H 70-105 mg/dL Total Calcium 7.5 L 8.5-10.1 mg/dL Magnesium Level 2.00 1.80-2.40 mg/dL Total Bilirubin 4.5 #H 0.2-1.0 mg/dL Aspartate Amino Transf (AST/SGOT) 107 H 10-37 U/L Alanine Aminotransferase (ALT/SGPT) 33 # 12-78 U/L Alkaline Phosphatase 157 H 50-136 U/L B-Type Natriuretic Peptide 551 H 0-100 pg/mL Total Protein 5.4 L 6.0-8.3 g/dL Albumin 2.0 #L 3.5-5.0 g/dL Blood Gas Specimen Type Arterial Arterial Blood pH 7.437 7.350-7.450 Arterial Blood Partial Pressure CO2 23 L 35-48 mmHg Arterial Blood Partial Pressure O2 72.6 L 83.0-108.0 mmHg Arterial Blood HCO3 15.3 L 21.0-28.0 mmol/L Arterial Blood Oxygen Saturation 95.4 94.0-98.0 % Arterial Blood Base Excess -6.7 L -2.0-3.0 mmol/L Blood Gas Temperature 37.0 35.5-37.0 CELSIUS Blood Gas Flow-by 2.00 0.00-15.00 L/min Blood Gas Vent Mode NC ROOM AIR FiO2 28.0 % Blood Gas Specimen Comment RR RN CAROL Prothrombin Time 17.7 H 9.6-11.6 SEC Prothromb Time International Ratio 1.66 H 0.85-1.15 Activated Partial Thromboplast Time 46.7 H 26.3-35.5 SEC Test 06/17/24 09:38 06/17/24 04:16 Range/Units Blood Gas PEEP 5 cm H2O Procalcitonin 3.99 H 0.05-0.5 ng/mL Current Medications Medications (Trade) Dose Ordered Sig/Quan Route PRN Reason Start Time Stop Time Status Last Admin Dose Admin Acetaminophen (TYLenol 500MG TAB) 500 mg Q6H PRN PO TEMP < 101.1 AND/OR HEADACHE 06/09/24 18:00 07/09/24 17:59 06/14/24 17:35 500 MG Albumin Human 100 ml @ 50 mls/hr AD IV 06/12/24 11:00 06/14/24 10:59 DC 06/12/24 13:30 50 MLS/HR Albumin Human 250 ml @ 0 mls/hr AD IV 06/17/24 11:00 06/19/24 10:59 06/17/24 10:54 250 MLS/HR Artificial Tears (Artificial Tears) 1 DROP OR AD Q8H OU 06/09/24 09:00 07/09/24 08:59 06/18/24 08:49 1 DROP Cefepime HCl (MAXipime 2 gm vial) 2 gm Q12H IVPB 06/11/24 05:00 06/19/24 08:59 06/18/24 05:05 2 GM Cefepime HCl (MAXipime 2 gm vial) 2 gm Q8H IVPB 06/09/24 09:00 06/10/24 19:49 DC 06/10/24 16:44 2 GM Chlorhexidine Gluconate (Peridex) 15 ml Q8H MM 06/09/24 09:00 06/23/24 08:59 06/18/24 08:46 15 ML Dexmedetomidine/ Sodium Chloride (PRECEdex 400MCG/ 100ML-NS) 400 mcg PROTOCOL IV 06/11/24 20:30 07/11/24 20:29 06/18/24 05:07 400 MCG Dextrose/Sodium Chloride 1,000 ml @ 0 mls/hr AD IV 06/09/24 10:00 06/11/24 13:29 DC Fentanyl Citrate 100 ml @ 2.5 mls/hr PROTOCOL IV 06/09/24 06:30 06/12/24 13:28 DC 06/11/24 21:06 2.5 MLS/HR Folic Acid (FolVITE 5 MG/ML VIAL) 1 mg DAILY IV 06/09/24 18:00 07/09/24 17:59 06/18/24 10:08 1 MG Furosemide (LASix 20MG VIAL) 20 mg DAILY IV 06/13/24 09:00 06/13/24 09:20 DC 06/13/24 07:59 20 MG Furosemide (LASix 20MG VIAL) 20 mg Q12H IV 06/09/24 12:00 06/09/24 11:26 DC Furosemide (LASix 20MG VIAL) 20 mg Q6H6 IV 06/09/24 12:00 06/12/24 07:38 DC 06/12/24 06:46 20 MG Furosemide (LASix 20MG VIAL) 40 mg Q12H IV 06/12/24 08:00 06/12/24 14:58 DC 06/12/24 08:16 40 MG Heparin Sodium/ Dextrose 250 ml @ 0 mls/hr PROTOCOL IV 06/09/24 03:30 06/09/24 09:45 DC 06/09/24 03:31 10.78 MLS/HR Insulin Human Regular (humuLIN R 100 UNIT/ML 3ML) INSULIN SLIDING SCAL... Q6H6 SQ 06/11/24 12:00 06/13/24 11:22 DC 06/13/24 06:45 6 UNIT Insulin Human Regular (humuLIN R 100 UNIT/ML 3ML) INSULIN SLIDING SCAL... Q6H6 SQ 06/13/24 12:00 07/13/24 11:59 06/17/24 00:51 6 UNIT Insulin Human Regular 100 unit/ Sodium Chloride 101 ml @ 0 mls/hr PROTOCOL IV 06/09/24 10:00 06/11/24 13:29 DC 06/09/24 11:41 1 MLS/HR Ipratropium [place] (AtrovENT UD) 0.5 MG [id number] IH 06/14/24 14:00 07/14/24 13:59 06/18/24 11:10 0.5 MG Lactated Ringer's 1,000 ml @ 50 mls/hr Q20H IV 06/13/24 09:30 06/13/24 14:44 DC 06/13/24 11:18 50 MLS/HR Lactated Ringer's 1,000 ml @ 75 mls/hr [id number] IV 06/15/24 11:00 06/17/24 09:36 DC 06/17/24 03:57 75 MLS/HR Lactated Ringer's (Lactated Ringers 1000ml) 500 ml BOLUS IV 06/15/24 10:00 06/15/24 12:31 DC 06/15/24 10:04 500 ML Lactulose (Constulose 20gm/ 30ml Udcup) 20 gm DAILY PO 06/12/24 09:00 07/12/24 08:59 06/18/24 08:46 20 GM Levofloxacin/ Dextrose (LEvaquIN 750 MG/ D5W 150 ML) 750 mg Q24H IV 06/09/24 06:30 06/09/24 08:29 DC Lorazepam (AtiVAN) 2 mg Q4H PRN IVP ALCOHOL WITHDRAWAL PROTOCOL 06/09/24 18:00 06/16/24 17:59 DC Lorazepam (AtiVAN) 4 mg Q2H PRN IVP ALCOHOL WITHDRAWAL PROTOCOL 06/09/24 18:00 06/16/24 17:59 DC Magnesium Sulfate 50 ml @ 0 mls/hr PROTOCOL IV 06/09/24 10:00 06/11/24 13:29 DC 06/11/24 07:13 25 MLS/HR Magnesium Sulfate 50 ml @ 0 mls/hr PROTOCOL PRN IV OTHER [SEE ORDER COMMENTS] 06/09/24 01:00 06/09/24 06:50 DC 06/09/24 01:03 25 MLS/HR Magnesium Sulfate 50 ml @ 0 mls/hr PROTOCOL PRN IV OTHER [SEE ORDER COMMENTS] 06/09/24 07:00 06/09/24 08:35 DC Magnesium Sulfate 50 ml @ 0 mls/hr PROTOCOL PRN IV low magnesium 06/09/24 08:30 06/09/24 09:46 DC Magnesium Sulfate 50 ml @ 0 mls/hr PROTOCOL PRN IV MAGNESIUM PROTOCOL 06/11/24 15:00 07/11/24 14:59 06/16/24 13:00 25 MLS/HR Metronidazole/ Sodium Chloride 100 ml @ 100 mls/hr Q8H6 IVPB 06/09/24 14:00 06/19/24 13:59 06/18/24 06:58 100 MLS/HR Midazolam HCl (Midazolam 100mg-0.9% NS 100ml) 100 ml PROTOCOL IV 06/09/24 15:30 06/12/24 10:33 DC 06/11/24 08:05 100 ML Midodrine (PROAMatine 5 MG TABLET) 10 mg TID PO 06/11/24 14:00 06/14/24 10:06 DC 06/14/24 07:47 10 MG Midodrine (PROAMatine 5 MG TABLET) 15 mg TID PO 06/14/24 14:00 07/14/24 13:59 06/18/24 08:47 15 MG Multivitamins Therapeutic (Multivitamin Tablet) 1 tab DAILY PO 06/10/24 09:00 07/10/24 08:59 06/18/24 08:48 1 TAB Norepinephrine Bitartrate (Norepineph 16 Mg/250ml NS Premix) HIGH ALERT Init... PROTOCOL IV 06/09/24 12:30 07/09/24 12:29 06/13/24 19:21 16 MG Octreotide Acetate 1250 mcg/ Sodium Chloride 250 ml @ 0 mls/hr PROTOCOL IV 06/09/24 08:30 06/13/24 13:43 DC 06/11/24 13:17 5 MLS/HR Octreotide Acetate 500 mcg/ Sodium Chloride 100 ml @ 0 mls/hr PROTOCOL IV 06/09/24 04:30 06/09/24 08:13 DC 06/09/24 05:50 5 MLS/HR Ondansetron HCl (zoFRAN 4MG INJ) 4 mg Q4H PRN IV NAUSEA 06/09/24 18:00 07/09/24 17:59 Pantoprazole Sodium (PROTonix 40MG INJ) 40 mg BID IVP 06/11/24 21:00 07/11/24 20:59 06/18/24 08:47 40 MG Pantoprazole Sodium 80 mg/ Sodium Chloride 100 ml @ 10 mls/hr Q10H IVP 06/09/24 04:00 06/11/24 13:24 DC 06/11/24 08:04 10 MLS/HR Pharmacy Profile Note (Pharmacy Communication) 1 each PROTOCOL PRN MISC ETOH Withdrawal Score changes 06/09/24 18:00 06/16/24 17:59 DC Phenylephrine HCl 10 mg/Sodium Chloride 250 ml @ 0 mls/hr PROTOCOL PRN IV PROTOCOL 06/09/24 07:00 07/09/24 06:59 06/09/24 09:27 96 MLS/HR Potassium Chloride 20 meq/ Sodium Chloride 1,010 ml @ 0 mls/hr PROTOCOL IV 06/09/24 10:00 06/11/24 13:29 DC Potassium Chloride/Dextrose/ Sod Cl 1,000 ml @ 0 mls/hr AD IV 06/09/24 10:00 06/11/24 13:29 DC Potassium Chloride 100 ml @ 50 mls/hr AD PRN IV POTASSIUM PROTOCOL 06/09/24 07:00 06/09/24 08:34 DC Potassium Chloride 100 ml @ 50 mls/hr AD PRN IV POTASSIUM PROTOCOL 06/09/24 08:30 07/09/24 08:29 06/18/24 07:07 50 MLS/HR Potassium Chloride 100 ml @ 100 mls/hr AD PRN IV POTASSIUM PROTOCOL 06/09/24 08:30 06/09/24 08:41 DC Potassium Chloride (K-Dur/Klor-Con 20meq) 20 meq AD PRN PO POTASSIUM PROTOCOL 06/09/24 08:30 07/09/24 08:29 Potassium Chloride (KCl 10% Elixir 20meq/15ml) 20 meq AD PRN PO POTASSIUM PROTOCOL 06/09/24 08:30 07/09/24 08:29 06/17/24 08:17 20 MEQ Propofol (DIPRivan 1000MG/ 100ML) 1,000 mg PROTOCOL PRN IV SEDATION 06/14/24 17:30 07/14/24 17:29 Sodium Bicarbonate 150 meq/Dextrose 1,150 ml @ 150 mls/hr Q7H40M IVP 06/09/24 00:30 06/09/24 18:11 DC 06/09/24 01:18 150 MLS/HR Sodium Chloride 500 ml @ 0 mls/hr Q0M IV 06/17/24 18:00 07/17/24 17:59 06/17/24 18:26 500 MLS/HR Sodium Chloride 1,000 ml @ 75 mls/hr [id number] IV 06/17/24 18:00 07/17/24 17:59 06/18/24 08:49 75 MLS/HR Sodium Chloride 1,000 ml @ 200 mls/hr PROTOCOL IV 06/09/24 10:00 06/11/24 13:29 DC Thiamine HCl (Vitamin B-1) 300 mg DAILY IV 06/09/24 18:00 07/09/24 17:59 06/18/24 08:48 300 MG Vancomycin HCl 250 ml @ 125 mls/hr Q12H IV 06/09/24 22:00 06/10/24 21:50 DC 06/10/24 10:06 125 MLS/HR Vancomycin HCl 250 ml @ 125 mls/hr Q24H IV 06/11/24 22:00 06/12/24 21:39 DC 06/11/24 21:10 125 MLS/HR Vancomycin HCl 250 ml @ 125 mls/hr Q24H IV 06/13/24 22:00 06/23/24 21:59 06/17/24 20:15 125 MLS/HR Vancomycin HCl (Vancomycin Protocol) 1 each AD IV 06/09/24 09:00 06/23/24 08:59 Vasopressin 20 units/Sodium Chloride 100 ml @ 0 mls/hr PROTOCOL IV 06/09/24 07:00 07/09/24 06:59 06/09/24 08:20 9 MLS/HR Wound Care/ Dressing Products (Venelex Ointment) 1 APPL TID TP 06/14/24 21:00 07/14/24 20:59 06/18/24 08:49 1 GM DIAGNOSTICS / RADIOLOGY: [ ] ASSESSMENT: Acute respiratory failure POA Septic shock, resolving Bilateral lower lobe bacterial pneumonia, POA Acute hepatic encephalopathy, POA Combined alcoholic and fatty liver cirrhosis, POA MELD Score 19 points (19.6% estimated three month mortality) NSTEMI type 2, 2/2 supply and demand mismatch POA Acute on chronic Stage I Diastolic Heart Failure w/ EF of 40% POA Elevated troponin R/O ACS POA Elevated D-dimer of 3989, negative for DVT, Well score for PE 3 ( Moderate score) Metabolic acidosis POA Ascites Hepatomegaly Acute blood loss anemia POA Acute upper and lower GI bleed, POA Acute thrombocytopenia POA Acute on chronic diastolic CHF POA Hyperglycemia POA Hypomagnesemia POA Positive for THC POA Active alcohol drinker POA Acute complicated cystitis POA Hypertension POA acute GI bleed POA s/p EGD 06/13/24 non bleeding ulcer PLAN: Remains admitted to the ICU Successfully extubated 06/17. Continue to wean off oxygen Continue to follow critical care input and recommendation Limited 2D echo to reassess LVEF per Cardiology. Can consider noninvasive stress testing to evaluate for ischemia when medically stable Continue broad-spectrum IV antibiotics for multifocal pneumoniae per ID rec ommendations. NEURO: Minimize central acting medications as possible. Fall Precautions. Well lighted room through the day and minimize interruptions through the night to prevent acute delirium. PULMONARY: Supplemental 02 as needed BiPAP as necessary, for respiratory distress Titrate Fio2 to keep Spo2 > or = 90% DuoNebs and CPT as needed IS hourly while awake for pulmonary hygiene prn Out of bed to chair as tolerated Maintain aspiration precautions at all times CARDIOVASCULAR: Follow hemodynamics. Vital signs per facility protocol GI & NUTRITION: Continue nutritional support Aspirations precautions Prokinetic agents and laxatives as needed KIDNEYS & ELECTROLYTES: Strict monitoring of intake and output Daily weights Avoid nephrotoxic agents Monitor electrolytes and replace as needed Goal urine output of 30mL/hr or 0.5mL/kg/hr Medications to be dosed according to renal function. Avoid contrast if possible ENDOCRINE: Maintain blood glucose between 100-180 at all times. Insulin sliding scale for blood glucose management Hypoglycemia and hyperglycemia protocol in place INFECTIOUS DISEASE: Trend temperature, WBC and procalcitonin level Follow cultures, deescalate antibiotics as soon as possible. Panculture if new onset fever HEMATOLOGY & COAGULATION: Monitor H&H. Keep Hgb > 7 Transfuse 1 unit of PRBC for Hgb < 7 Transfuse 1 pack of platelets of platelets < 20, 000 Watch for any signs and symptoms of bleeding SKIN: Pressure ulcer prevention per facility protocol Specialty mattress as needed ORTHO/REHAB Continue PT/OT PRN: MEDICATIONS Tylenol 650 mg po every 4 hrs for fever zofran 4 mg IV every 6 hrs for n/v Hydralazine 5 mg IV every 4 hrs systolic pressure > 160 bowel regiment: lactulose 20 gm PO BID PRN constipation Supportive measures: Continue GI and DVT prophylaxis Disposition: Pending improving in clinical condition. All questions answered time spent: > 35 min LAUREN NORRIS MD Jun 18, 2024 11:54
--- NOTE | 2024-06-18 12:37 | PN ---
[facility] CARDIOLOGY PROGRESS NOTE Date Patient Seen: Jun 18, 2024 Time of Visit: 12:17 Interval History: This is a 53-year-old white male with a past medical history of hypertension, psoriatic arthritis and CHF" who presented to the ER initially with complaints of persistent nausea and vomiting. He was found to have metabolic derangements including metabolic acidosis, anemia, thrombocytopenia, procalcitonin level of 13 and lactic acid of 2.6, developed respiratory failure requiring intubation in the emergency department on 06/09/2024. Cardiology was involved when he was noted to have troponins of 441, 600 and 953 and was felt to be a type 2 AK in the setting of his acute illness. He has required vasopressor support which was discontinued over the last 24 h ours. Nursing reports he has had a high CIWA score and is currently on Precedex and CIWA protocol. He has undergone an EGD on this admission 06/13/2024 demonstrated nonbleeding ulcers. In addition, a 2D echocardiogram on 06/09/2024 demonstrated global hypokinesis, EF of 40% and stage II diastolic dysfunction. This was in the setting of respiratory failure and probable sepsis. Physical Examination: GENERAL: No acute distress, follows commands. LUNGS: Clear breath sounds bilaterally HEART: Normal S1 and S2 and no audible murmur, gallop or rub. VASC: No pedal edema, pedal pulses are 2+ and has pain to his joints with range of motion SKIN: Multiple tattoos throughout the upper extremities, no acute rashes or lesions NEURO: Awaken oriented to person and place, slow to speak currently on Precedex Laboratory: Hematology Labs: Test 06/18/24 04:08 Range/Units White Blood Count 19.7 H 4.8-10.8 K/uL Red Blood Count 2.80 L 4.50-6.20 MIL/uL Hemoglobin 9.8 L 14.0-18.0 g/dL Hematocrit 29.6 L 42-54 % Mean Corpuscular Volume 105.7 H 79-99 fL Mean Corpuscular Hemoglobin 35.0 H 27.0-33.0 pg Mean Corpuscular Hemoglobin Concent 33.1 32.0-36.0 g/dL Red Cell Distribution Width 13.6 11.0-15.5 % Platelet Count 173 # 130-400 K/uL Mean Platelet Volume 13.2 H 7.5-10.5 fL Immature Granulocyte % (Auto) 1.1 H 0-1 % Neutrophils (%) (Auto) 86.1 H 40.0-77.0 % Lymphocytes (%) (Auto) 5.5 L 21.0-51.0 % Monocytes (%) (Auto) 6.8 3.0-13.0 % Eosinophils (%) (Auto) 0.2 0.0-8.0 % Basophils (%) (Auto) 0.3 0.0-5.0 % Neutrophils # (Auto) 17.0 H 1.8-7.7 K/uL Lymphocytes # (Auto) 1.1 1.0-4.8 K/uL Monocytes # (Auto) 1.4 H 0.1-1.0 K/uL Eosinophils # (Auto) 0.04 0.00-0.70 K/uL Basophils # (Auto) 0.06 0.00-0.20 K/uL Absolute Immature Granulocyte (auto 0.22 0-1 K/uL Nucleated Red Blood Cells 0.0 0.0-0.19 % Chemistry Labs: Test 06/18/24 11:27 06/18/24 04:08 06/17/24 04:16 Range/Units Whole Blood Glucose 117 H 70-110 MG/DL Sodium Level 144 136-145 mmol/L Potassium Level 3.6 3.5-5.1 mmol/L Chloride Level 110 101-111 mmol/L Carbon Dioxide Level 21 21-32 mmol/L Blood Urea Nitrogen 33 H 7-18 mg/dL Creatinine 1.3 0.5-1.3 mg/dL Glomerular Filtration Rate Calc 65 >90 mL/min Random Glucose 129 H 70-105 mg/dL Total Calcium 7.5 L 8.5-10.1 mg/dL Magnesium Level 2.00 1.80-2.40 mg/dL Total Bilirubin 4.5 #H 0.2-1.0 mg/dL Aspartate Amino Transf (AST/SGOT) 107 H 10-37 U/L Alanine Aminotransferase (ALT/SGPT) 33 # 12-78 U/L Alkaline Phosphatase 157 H 50-136 U/L B-Type Natriuretic Peptide 551 H 0-100 pg/mL Total Protein 5.4 L 6.0-8.3 g/dL Albumin 2.0 #L 3.5-5.0 g/dL Procalcitonin 3.99 H 0.05-0.5 ng/mL Coagulation Labs: Test 06/17/24 11:55 Range/Units Prothrombin Time 17.7 H 9.6-11.6 SEC Prothromb Time International Ratio 1.66 H 0.85-1.15 Activated Partial Thromboplast Time 46.7 H 26.3-35.5 SEC Diagnostics / Radiology: Limited follow-up 2D echocardiogram to reassess LV function is pending Impression and Plan: Septic shock Acute respiratory failure status post intubation in the ER, extubated 06/17/2024: Community-acquired pneumonia, with bilateral lower lobe infiltrates: -continues in the ICU and continue medical therapy Acute on chronic systolic and diastolic congestive heart failure Congestive cardiomyopathy with an LVEF of 40% by 2D echocardiogram 06/09/2024: -follow-up chest x-ray today demonstrates persistent bilateral lower lobe infiltrates and a small right pleural effusion. BNP is trending down -begin furosemide 20 mg IV daily -hypotension precludes guideline directed medical therapy Type [address] segment elevation AK with troponin of 600 rising to 953: -antiplatelet therapy has been avoided given thrombocytopenia with platelet count as low as 51, platelet count has improved to 173 -hypotension precludes beta-thai therapy at this time Suspected GI bleed with EGD demonstrated nonbleeding gastric ulcers Combined alcoholic and fatty liver disease and likely cirrhosis noted on CT scan of the abdomen and pelvis 06/17/2024 Iron deficiency anemia Active alcohol use Positive THC Negative HIT, negative rheumatoid factor and negative KELECHI PHYSICIAN ATTESTATION OF PHYSICIAN CHROME TANNING DRUM OPERATOR DOCUMENTATION: I attest that I was physically present for the cote portions of the service and evaluated the patient with the Physician Salon Professional, and I reviewed and discussed the case with the Physician Salon Professional and made modifications to the Physician Salon Professional's findings and plans of care as documented above JUAN CARLOS RANDALL Jun 18, 2024 12:37 DEANA KERR MD Jun 18, 2024 16:15
--- NOTE | 2024-06-18 12:48 | HMCIMG ---
CHEST 1VW CLINICAL HISTORY: Intubated/PNA COMPARISON: 06/17/2024 TECHNIQUE: Single view of the chest was obtained. FINDINGS: There is been interval extubation with improved ventilation. Remaining supporting lines tubes are stable. Cardiac and mediastinal silhouette and bony structures are unchanged. IMPRESSION: Improved ventilation status post extubation.
--- NOTE | 2024-06-18 12:53 | PN ---
[facility] PROGRESS NOTE Date Patient Seen: Jun 18, 2024 Time of Visit: 12:13 Supervising Physician: Dr. Mccollum Primary Care Physician: Self Referral, Outpatient Specialists: Inpatient Consults: Dr Mena. 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 He has less pressor support only on Levophed today at 0.4 micrograms/kilogram per minute. He is still critically ill. Current vital signs and blood pressure 128/72 respiratory rate of 24 saturating 95% with FiO2 of 70%, heart rate 96 beats per minute, he d eveloped a fever yesterday of 101.1 in the last 24 hours. He continues antibiotics with vanco cefepime and Flagyl. Sister is at the bedside who answered a few questions in regards to his medical history. She reports she has not been very informed of patient for the last three years but she reports patient has been told he has liver cirrhosis at least three years ago. He was told that if he did in quit drinking that he could within the next year. She also reports patient has heart problems and at one point he was placed on a LifeVest for heart failure. Urine output 2.3 L with a balance of-483 mL. On laboratory WBCs are 11.2 H&H is 10.1/29.7 seemed to be stable. Platelet count 59 K decreased from yesterday which was 91 K. Latest ABG with a pH of 7.35 pCO2 of 33 PO2 of 251 and bicarb of 17.9 base excess-6.7 improvement from yesterday. Ventilator Settings Adjusted To Assist Control Volume Control Tidal Volume Of 425 Respiratory Rate Of 24 Fio2 Of 70% And Peep Of 5. 2D echo shows EF of 40% with grade 1 diastolic dysfunction. Venous ultrasound with normal bilateral lower extremity venous Doppler. Ultrasound of the abdomen with moderate to marked hepatic steatosis, the liver is enlarged at 17 cm., ascites otherwise unremarkable exam including no abnormal per has been. Patient has a MELD score of 19 point which is 19.6% of estimated 3month mortality. EGD for today has been canceled per GI due to pt still on pressor support. Pt's sister was at the bedside and has requested for pt code status to be changed to DNR. 06/11/24: Patient continues critically ill currently on Levophed at 0.04 micrograms/kilogram per minute, fentanyl 125 micrograms/hour, Versed weaning at 4 milligrams/hour. He continues on Sandostatin drip and Protonix drip. We will switch to Protonix 40 ivp BID for now. Patient has been afebrile heart rate in the 80s hemodynamically improving blood pressure 108/68 with a map of 81 respiratory rate adjusted to 18 saturating 97% with a FiO2 45% on the vent, current settings of assist control volume control tidal volume of 425 respiratory rate of 18 FiO2 of 45 and PEEP of five. Prior ABGs showed a pH of 7.51, pCO2 of 31 PO2 of 140 and bicarb of 24.2. Chest x-ray shows pulmonary pattern has been for no worrisome interval changes have taken place. Stable exam. ET tube 6.5 cm from the louis communicated with respiratory for insertion in 1.5 cm. We will continue to wean off sedation to assess mental status. once pt breathing over the vent we may start SBT. 06/12/24-patient assessed in room 206 ICU. As per RN no major overnight events. Has been off sedation since seven in the morning fentanyl and Versed has been turned off. We will assess respiratory status due to right now patient is still breathing on the vent and once he breathe over the vent we can start spontaneous breathing trials. Patient continues on low-dose Levophed at 0.04 micrograms/kilograms per minute attempting to wean off pressors. Hemodynamically stable at this time with blood pressure 107/71 heart rate of 90 respiratory rate of 13 saturating 97% with a FiO2 of 45%. Latest ABGs show pH of 7.42 pCO2 of 38 PO2 of 114 bicarb 24.7 O2 saturation 98.3 weaning on the FiO2. Input was 3.7 L in the last 24 hours with a balance of-2.7 L. he was on Lasix 40 mg IV push q.12 hours we will decreased now to Lasix 20 mg IV push daily which is equivalent to his Lasix 40 mg p.o. home medication. On laboratory WBCs are 10.9 trending down with the improvement H&H is stable 10.1/29.8 with a platelet count of 55 K. chemistries sodium 147 BUN 22 creat inine 1.4 GFR of 59 improving. Glucose of 197 mg/dL total protein 5.9 albumin 2.3. Sister at the bedside. I updated her with today is findings and answered all her questions. Inform her of the plan of care and she verbalized agreement. 06/13/24-patient assessed in room 206 in the ICU. This morning he is off pressors hemodynamically stable blood pressure 105/71 with a heart rate of 100 saturating 94% with a FiO2 of 45% on the vent breathing slightly over the vent at 18 with a rate on the vent of 14 and has been afebrile. Patient tolerated CPAP trials yesterday. Patient with minor movements and grimacing to face not fully awake and following commands. He has been off sedation x2 days. We will order CT head and brain without contrast to rule CVA. Urine output 2.7 L with a balance of -1.9. On laboratory WBCs are 9.1 H&H is 9.1/27.3 platelet count is 59 K. patient has been NPO due to GI bleed and we will start LR at a low-rate of 50 mL/hour. Patient may be encephalopathic from hypernatremia sodium of 153. Potassium of 3.1 chloride 113 carbon dioxide 30 BUN of 34 creatinine of 1.4 and GFR 59. Glucose of 212 mg/dL adjusted insulin sliding scale to #2 for hyperglycemia. Otherwise chest x-ray shows stable exam no worrisome interval changes. ET tube readjusted inserted 1.5 cm in per RT. We will follow GI recommendations in regards to a possible endoscopies since patient is off pressors and hemodynamically stable. CT of the head and brain without contrast ordered and is pending to be resulted. 06/14/2024: At the time of my evaluation, the patient is lying bed. Sister was present at the bedside during my visit. The patient has been off sedation x2 days and is still not arousable, RASS score of -5. CT head done on 06/13/2024, showed no concerning intracranial abnormality. He remains intubated and mechanically vented. Vital signs are in the hypotensive range systolic in the 80s with a map of 62, this was off Levophed. The patient continues on feeding through the OGT for nutritional support. I and O shows a net balance of 1129.0. Laboratory data today, showed stable WBC count, low H&H and platelet count. Chemistry panel showed no derangement of concern. Staff nurse showed no report of recurrent bleed. No new complaint. 06/15/2024: At the time of my evaluation, the patient is lying in bed. The staff nurses present at the bedside as well as family members. Per the staff nurse, the patient was weaned off sedation and became very agitated overnight. His Precedex was resumed and he is currently RASS score of -2. The patient remains intubated and mechanically vented. ACVC rate of 12, TV 425, peep of 5 and FiO2 35%. On the monitor, the patient is hypotensive systolic in the 80s. Currently, was off Levophed and continues on midodrine. The patient continues on nutritional support via OGT and no report of nausea, vomiting or diarrhea. The patient remains with Gomez catheter in place abran color urine. Net balance on I's and O's of 1797.8. On labs, the was a increase in WBC count from 9.4 yesterday to 15.5 today. Cultures are negative. No acute events noted overnight. No other complaint. 06/16/2024: At the time of my evaluation, the patient was lying in bed. Per the staff nurse, the patient has been off sedation since this a.m.. RASS score of -2. The patient remains intubated and mechanically vented currently on SBT. Chest x-ray showed bilateral effusion. The patient continues on antibiotic coverage with cefepime, vanco and Flagyl Vital signs are hemodynamically stable on low-dose Levophed and high dose midodrine. There was no complaint of chest pain. There was no nausea, vomiting or diarrhea. Patient continues with Gomez catheter in place draining dark abran colored urine and has a net balance of 1939.8. On labs today, there was a increase in WBC count to 18.1, H and H showed a drop from 10.3/30.6-9.3/28.2. Chemistry panel showed a slightly lower potassium to 3.4 and a magnesium of 1.70. Liver parameters showed a total bili of 30.0, AST of 45, ALT is 15 and alk-phos of 96. Otherwise, no other complaint. 06/17/2024: At the time of my evaluation, the patient was lying in bed. Per the staff nurse, the patient has been off sedation since this a.m.. RASS score of 0. The patient remains intubated and mechanically vented currently on SBT. Chest x-ray showed bilateral effusion. The patient continues on antibiotic coverage with cefepime, vanco and Flagyl Vital signs are hemodynamically stable currently off Levophed and high dose midodrine. There was no complaint of chest pain. Today, the patient's abdomen was noted more distended than usual. There was no nausea, vomiting or diarrhea. Patient continues with Gomez catheter in place draining dark abran colored urine and urine output over the last24 hours was 900 mL with a net balance of 3716.6. On labs today, there was a increase in WBC count to 18.6, H and H remained stable. Chemistry panel showed a slightly lower potassium to 3.5 and a magnesium of 2.10. Liver parameters showed a total bili of 3.1, AST of 64, ALT is 22 and alk-phos of 96. Otherwise, no other complaint. 06/18/2024: At the time of my evaluation, the patient was lying in bed. Per the staff nurse, the patient was started on Precedex due to symptoms of alcohol withdrawal, currently on Precedex 0.5mcg. RASS score of 0. The patient was successfully extubated yesterday and is currently tolerating nasal cannula2 liters/minute. Chest x-ray showed bilateral effusion. Vital signs are hemodynamically stable currently off Levophed and high dose midodrine. There was no complaint of chest pain. CT abdomen obtained showed no obstruction, there was likely liver cirrhosis with [id number] ascites and findings of chronic pancreatitis. There was no nausea, vomiting or diarrhea. The patient is receiving IV NS at 75 per hour. Urinary output for the past24 hours, total 900 mL with a net balance of 2241.0. On labs today, the patient did show a increase of WBCs to 19.7, H and H remains stable. Chemistry panel showed no major derangement. Liver parameters showed a increase total bili of 4.5, AST of 107 and ALT of33 with a alk-phos of 157. This is related to his liver disease. Microbiology data showing negative blood cultures x2, tracheal aspirate growing Gram-negative rods. The patient continues on antibiotic coverage with cefepime, vanco and Flagyl. Otherwise, no other complaint. REVIEW OF SYSTEMS: Unable to perform due to patient's intubated. PHYSICAL EXAM: GENERAL: Intubated off sedation HEENT: Sclera non icteric, dry mucosa NECK: Supple, no JVD, trachea midline LUNGS: Diminished breath sounds bilaterally. No wheezes HEART: Regular rate and rhythm. Normal S1 and S2, without murmurs ABD: Abdomen soft, nontender. Bowel sounds present EXT: No clubbing cyanosis , swelling to bilateral lower extremities. NEURO: Intubated off sedation Vital Signs (last 8hr) Date Time Temp Pulse Resp B/P (MAP) Pulse Ox O2 Delivery O2 Flow Rate FiO2 06/18/24 11:10 78 25 06/18/24 10:00 75 23 90/63 (72) 100 28 06/18/24 09:00 80 36 95/62 (73) 95 28 06/18/24 08:45 99 Nasal Cannula* 2 40 Aerosol Mask+ 06/18/24 08:05 98.4 06/18/24 08:00 81 29 84/60 (68) 100 28 06/18/24 07:00 90 19 99 28 06/18/24 06:46 93 17 112/60 (77) 100 06/18/24 06:44 96 28 06/18/24 06:41 98 22 N/Cannula Low lpm 2.0 28 06/18/24 06:06 102 17 126/67 (86) 98 06/18/24 04:46 97.7 124 20 141/86 (104) 93 LABS: Hematology Labs: Test 06/18/24 04:08 Range/Units White Blood Count 19.7 H 4.8-10.8 K/uL Red Blood Count 2.80 L 4.50-6.20 MIL/uL Hemoglobin 9.8 L 14.0-18.0 g/dL Hematocrit 29.6 L 42-54 % Mean Corpuscular Volume 105.7 H 79-99 fL Mean Corpuscular Hemoglobin 35.0 H 27.0-33.0 pg Mean Corpuscular Hemoglobin Concent 33.1 32.0-36.0 g/dL Red Cell Distribution Width 13.6 11.0-15.5 % Platelet Count 173 # 130-400 K/uL Mean Platelet Volume 13.2 H 7.5-10.5 fL Immature Granulocyte % (Auto) 1.1 H 0-1 % Neutrophils (%) (Auto) 86.1 H 40.0-77.0 % Lymphocytes (%) (Auto) 5.5 L 21.0-51.0 % Monocytes (%) (Auto) 6.8 3.0-13.0 % Eosinophils (%) (Auto) 0.2 0.0-8.0 % Basophils (%) (Auto) 0.3 0.0-5.0 % Neutrophils # (Auto) 17.0 H 1.8-7.7 K/uL Lymphocytes # (Auto) 1.1 1.0-4.8 K/uL Monocytes # (Auto) 1.4 H 0.1-1.0 K/uL Eosinophils # (Auto) 0.04 0.00-0.70 K/uL Basophils # (Auto) 0.06 0.00-0.20 K/uL Absolute Immature Granulocyte (auto 0.22 0-1 K/uL Nucleated Red Blood Cells 0.0 0.0-0.19 % Chemistry Labs: Test 06/18/24 11:27 06/18/24 04:08 06/17/24 04:16 Range/Units Whole Blood Glucose 117 H 70-110 MG/DL Sodium Level 144 136-145 mmol/L Potassium Level 3.6 3.5-5.1 mmol/L Chloride Level 110 101-111 mmol/L Carbon Dioxide Level 21 21-32 mmol/L Blood Urea Nitrogen 33 H 7-18 mg/dL Creatinine 1.3 0.5-1.3 mg/dL Glomerular Filtration Rate Calc 65 >90 mL/min Random Glucose 129 H 70-105 mg/dL Total Calcium 7.5 L 8.5-10.1 mg/dL Magnesium Level 2.00 1.80-2.40 mg/dL Total Bilirubin 4.5 #H 0.2-1.0 mg/dL Aspartate Amino Transf (AST/SGOT) 107 H 10-37 U/L Alanine Aminotransferase (ALT/SGPT) 33 # 12-78 U/L Alkaline Phosphatase 157 H 50-136 U/L B-Type Natriuretic Peptide 551 H 0-100 pg/mL Total Protein 5.4 L 6.0-8.3 g/dL Albumin 2.0 #L 3.5-5.0 g/dL Procalcitonin 3.99 H 0.05-0.5 ng/mL Coagulation Labs: Test 06/17/24 11:55 Range/Units Prothrombin Time 17.7 H 9.6-11.6 SEC Prothromb Time International Ratio 1.66 H 0.85-1.15 Activated Partial Thromboplast Time 46.7 H 26.3-35.5 SEC DIAGNOSTICS / RADIOLOGY RESULTS: [ ] PLAN Daily sedation vacation. daily SBT's CT head and brain without contrast Precedex only if absolutely needed. Change Protonix gtt to IVP BID LR at 50 mL/hour for light hydration due to NPO status. Follow GI recommendations: Endoscopy? 06/14/2024: For now, we are going to continue current management for the patient. He will remain off of sedation and we will monitor his level of consciousness. I am going to repeat CT head/brain without contrast in a.m. and we will continue to correct any metabolic abnormalities that may affect his level of consciousness. Patient will remain intubated and we will continue with daily spontaneous breathing trials. I am going to increase the midodrine to 15 mg 3 times daily and we will monitor for bradycardic events. We will monitor the vital signs and heart rate. We will follow GI as planned on the possibility for endoscopic evaluation and we will continue to monitor for any recurrent bleed. The patient continue on Protonix IV twice daily. Acls Specialist on board due to the anemia. Blood, urine and sputum cultures are negative. Patient is developing a DTI to the buttocks for which we will consult wound care specia list. We will monitor the patient's progress and response to management. Patient remains critically ill and his prognosis is poor. Per the sister's input, if the patient would require trach and PEG, they might opt against it, patient is a DNR. We will continue to provide general supportive care, GI and DVT prophylaxis. Further orders per attending MD and hospital course. 06/15/2024: For now, we are going to continue current management for the patient. He will remain mechanically vented for now. We will attempt weaning trials once he is hemodynamically stable. We will resume the Levophed and titrate to maintain map above 65. We will put the patient on IV LR give a 500 mL bolus then continue at 75 mL/hour. We will monitor the blood pressure trend and adjust as necessary. We will continue feeding through the OGT and we will monitor for nausea, vomiting or diarrhea. We will follow the input of the treating specialist. We will monitor the patient's progress and response to management. We will continue to provide general supportive care, GI and DVT prophylaxis. Further orders per attending MD and hospital course. 06/16/2024: For now, we are going to continue current management for the patient. The patient for now we will remain off sedation. We will continue with SBTs in attempt to wean off the vent, possibly in the upcoming days. The patient is going to continue on antibiotic coverage as ordered. We will also continue on bronchodilator therapy. We will give the patient a dose of IV Lasix 20 mg x1 now. We will repeat a chest x-ray in a.m. We will monitor for any arrhythmias or other cardiac events. The patient will continue to feed on OGT with Vital HP. We will monitor the urinary output and bowel activity. Because of the increasing WBCs, I am going to panculture the patient once again and if no improvement of WBCs in the next 24 hours, we will broaden antibiotic spectrum. We will repeat surveillance labs in the morning with inclusion of a procalcitonin level. We will monitor the patient's progress and response to management. We will continue to provide general supportive care, GI and DVT prophylaxis. Further orders per attending MD and hospital course. 06/17/2024: For now, we are going to continue current management for the patient. The patient for now we will remain off sedation. We will continue with SBTs in attempt to wean off the vent, possibly today. The patient is going to continue on antibiotic coverage as ordered. We will also continue on bronchodilator therapy. We will repeat a chest x-ray in a.m. We will monitor for any arrhythmias or other cardiac events. I am going to challenge the patient wi th a dose of albumin and monitor the blood pressure trend. The patient will continue to feed on OGT with Vital HP. We will monitor the urinary output and bowel activity. I am going to order a KUB due to the abdominal distention. A sputum culture showing 1+ Gram-negative rods, blood cultures x2 were negative. We will repeat surveillance labs in the morning with inclusion of a p rocalcitonin level has significantly improved to 3.99. Infectious Disease specialist was consulted. We will monitor the patient's progress and response to management. We will continue to provide general supportive care, GI and DVT prophylaxis. Further orders per attending MD and hospital course. 06/18/2024: For now, we are going to continue current management for the patient. The patient we will continue on Precedex 0.5 mcg for now. He will continue with nasal cannula and we will monitor the oxygen saturation. Business Law Teacher's is now following the patient and planned for a limited echo to re-evaluate the LVEF, this has been ordered and pending results. The patient is going to continue on antibiotic coverage as ordered and we will continue to follow the WBC trend. We will repeat a CBC later today and we will follow the WBC count. We will monitor for any arrhythmias or other cardiac events. The patient will continue to feed on NGT with Vital HP. We will monitor the urinary output and bowel activity. He will continue on IVF with NS at 75 cc/hour to complete the Liter. We will continue to monitor the blood culture and tracheal aspirate results and adjust antibiotic therapy as necessary. We will repeat surveillance labs in the morning. We will monitor the patient's progress and response to management. We will continue to provide general supportive care, GI and DVT prophylaxis. Further orders per attending MD and hospital course. NEURO: Minimize central acting medications as possible. Fall Precautions. Well lighted room through the day and minimize interruptions through the night to prevent acute delirium. PULMONARY: Supplemental 02 as needed Titrate Fio2 to keep Spo2 > or = 90% DuoNebs and CPT as needed IS hourly while awake for pulmonary hygiene Out of bed to chair as tolerated VAP Bundle Vent/BIPAP : Titrate to maintain optimal ventilation and oxygen saturation. Daily SBTs. CARDIOVASCULAR: Follow hemodynamics. Titrate vasopressor to keep MAP >65 or systolic blood pressure >95mmHg Cardiac monitoring Drips:: None LINES: RT IJ CVC PIV GI & NUTRITION: Continue nutritional support Aspirations precautions Prokinetic agents and laxatives as needed To low intermittent suction KIDNEYS & ELECTROLYTES: Strict monitoring of intake and output Daily weights Avoid nephrotoxic agents Monitor electrolytes and replace as needed Goal urine output of 30mL/hr or 0.5mL/kg/hr Monitor electrolytes and replace accordingly ENDOCRINE: Goal blood glucose between 100-180 at all times. INFECTIOUS DISEASE: Trend temperature. Salmeron-culture if febrile. Micro: Urine culture no growth Blood cultures no growth Respiratory cultures no growth Antibiotics: Vancomycin Cefepime Flagyl HEMATOLOGY & COAGULATION: Monitor H&H. Keep Hgb > 7 Transfuse 1 unit of PRBC for Hgb < 7 Transfuse 1 pack of platelets of platelets < 20, 000 Watch for any signs and symptoms of bleeding SKIN: Pressure ulcer prevention per facility protocol program eligibility specialist on board Rehab: PT/OT Prophylaxis: GI: Protonix IV 40mg BID DVT: SCDs due to GI bleed. Code Status: Full Resuscitation Disposition: ICU Other: Total patient care time exceeds 50 minutes excluding all procedures. Case was discussed and seen with my supervising physician. The above plan was formulated and agreed upon. FATIMAH SANTIAGO NP Jun 18, 2024 12:52
[2024-06-18 13:32] LABS: HEMATOCRIT 26.3 % (42-54); MEAN CORPUSCULAR HEMOGLOBIN 34.9 pg (27.0-33.0); MEAN CORPUSCULAR HGB CONC 33.5 g/dL (32.0-36.0); MEAN CORPUSCULAR VOLUME 104.4 fL (79-99); RED BLOOD CELL COUNT(AUTO) 2.52 MIL/uL (4.50-6.20); RED CELL DISTRIBUTION WIDTH 13.7 % (11.0-15.5); WHITE BLOOD COUNT (AUTO) 13.3 K/uL (4.8-10.8)
--- NOTE | 2024-06-18 14:46 | PN ---
INFECTIOUS DISEASE PROGRESS NOTE Date of Service: Jun 18, 2024 SUBJECTIVE: This 53 year old male patient is being seen today at bedside. He's currently being seen in ICU. Awake, alert and oriented. No fever or chills. Patient remain on antibiotics at this time, tolerating well. Denies chest pain, no episodes of nausea or vomiting. Currently on oxygen via nasal canula with no shortness of breath. Sputum culture growing gram negative rods preliminary. Patient remains on antibiotics. PHYSICAL EXAM EYES: Anicteric. Pupils equal and reactive. HENT: No oral thrush seen, moist Oral mucosa NECK: Supple, no JVD or thyromegaly. LUNGS: Good air entry. No rales, no rhonchi. CARDIOVASCULAR: S1, S2 regular. No murmur heard. ABDOMEN: Full, present bowel sounds. CENTRAL NERVOUS SYSTEM: Awake, alert, oriented x 3. No focal deficits. SKIN: No rashes, no swelling. LYMPHATICS: No peripheral lymphadenopathy MUSCULOSKELETAL: No joint swelling, erythema or tenderness. EXTREMITIES: No cyanosis or clubbing BACK: No deformity, no pressure ulcer. GENITOURINARY: No dysuria or hematuria Vital Sign (Last 12 Hours) 06/18/24 06/18/24 06/18/24 06/18/24 02:36 02:36 03:16 03:46 Pulse 136 125 118 Resp 24 20 20 B/P (MAP) 131/81 (98) 156/78 (104) 142/76 (98) Pulse Ox 100 93 95 96 O2 Delivery Nasal Cannula* Aerosol Mask+ O2 Flow Rate 3 FiO2 40 06/18/24 06/18/24 06/18/24 06/18/24 04:46 06:06 06:41 06:44 Temp 97.7 Pulse 124 102 98 96 Resp 20 17 22 28 B/P (MAP) 141/86 (104) 126/67 (86) Pulse Ox 93 98 O2 Delivery N/Cannula Low lpm O2 Flow Rate 2.0 FiO2 28 06/18/24 06/18/24 06/18/24 06/18/24 06:46 07:00 08:00 08:05 Temp 98.4 Pulse 93 90 81 Resp 17 19 29 B/P (MAP) 112/60 (77) 84/60 (68) Pulse Ox 100 99 100 FiO2 28 28 06/18/24 06/18/24 06/18/2425 08:45 09:00 10:00 11:00 Pulse 80 75 78 Resp 36 23 25 B/P (MAP) 95/62 (73) 90/63 (72) 110/63 (79) Pulse Ox 99 95 100 100 O2 Delivery Nasal Cannula* Aerosol Mask+ O2 Flow Rate 2 FiO2 40 28 28 28 06/18/24 06/18/24 06/18/24 06/18/24 11:10 11:16 12:00 12:15 Pulse 78 71 69 Resp 25 30 21 B/P (MAP) 95/61 (72) 96/64 (75) Pulse Ox 100 100 100 O2 Delivery Nasal Cannula* Aerosol Mask+ O2 Flow Rate 2 FiO2 28 28 40 06/18/24 06/18/24 06/18/24 06/18/24 12:16 12:30 13:00 13:16 Temp 98.2 Pulse 77 72 68 Resp 39 19 34 B/P (MAP) 103/62 (76) 110/65 (80) 114/66 (82) Pulse Ox 98 97 98 FiO2 28 28 28 06/18/24 14:00 Pulse 68 Resp 22 B/P (MAP) 103/63 (76) Pulse Ox 98 FiO2 28 Intake & Output (last 24hrs) 06/17/24 06/17/24 06/18/24 15:00 23:00 07:00 Intake Total 175.0 ml 2150.0 ml 824.0 ml Output Total 300 ml 600 ml Balance 175.0 ml 1850.0 ml 224.0 ml LABS: Laboratory: Test 06/18/24 13:19 06/18/24 11:27 06/18/24 04:08 06/18/24 03:38 Range/Units White Blood Count 13.3 #H 4.8-10.8 K/uL Red Blood Count 2.52 L 4.50-6.20 MIL/uL Hemoglobin 8.8 L 14.0-18.0 g/dL Hematocrit 26.3 L 42-54 % Mean Corpuscular Volume 104.4 H 79-99 fL Mean Corpuscular Hemoglobin 34.9 H 27.0-33.0 pg Mean Corpuscular Hemoglobin Concent 33.5 32.0-36.0 g/dL Red Cell Distribution Width 13.7 11.0-15.5 % Platelet Count 145 130-400 K/uL Mean Platelet Volume 13.1 H 7.5-10.5 fL Nucleated Red Blood Cells 0.0 0.0-0.19 % Whole Blood Glucose 117 H 70-110 MG/DL Immature Granulocyte % (Auto) 1.1 H 0-1 % Neutrophils (%) (Auto) 86.1 H 40.0-77.0 % Lymphocytes (%) (Auto) 5.5 L 21.0-51.0 % Monocytes (%) (Auto) 6.8 3.0-13.0 % Eosinophils (%) (Auto) 0.2 0.0-8.0 % Basophils (%) (Auto) 0.3 0.0-5.0 % Neutrophils # (Auto) 17.0 H 1.8-7.7 K/uL Lymphocytes # (Auto) 1.1 1.0-4.8 K/uL Monocytes # (Auto) 1.4 H 0.1-1.0 K/uL Eosinophils # (Auto) 0.04 0.00-0.70 K/uL Basophils # (Auto) 0.06 0.00-0.20 K/uL Absolute Immature Granulocyte (auto 0.22 0-1 K/uL Sodium Level 144 136-145 mmol/L Potassium Level 3.6 3.5-5.1 mmol/L Chloride Level 110 101-111 mmol/L Carbon Dioxide Level 21 21-32 mmol/L Blood Urea Nitrogen 33 H 7-18 mg/dL Creatinine 1.3 0.5-1.3 mg/dL Glomerular Filtration Rate Calc 65 >90 mL/min Random Glucose 129 H 70-105 mg/dL Total Calcium 7.5 L 8.5-10.1 mg/dL Magnesium Level 2.00 1.80-2.40 mg/dL Total Bilirubin 4.5 #H 0.2-1.0 mg/dL Aspartate Amino Transf (AST/SGOT) 107 H 10-37 U/L Alanine Aminotransferase (ALT/SGPT) 33 # 12-78 U/L Alkaline Phosphatase 157 H 50-136 U/L B-Type Natriuretic Peptide 551 H 0-100 pg/mL Total Protein 5.4 L 6.0-8.3 g/dL Albumin 2.0 #L 3.5-5.0 g/dL Blood Gas Specimen Type Arterial Arterial Blood pH 7.437 7.350-7.450 Arterial Blood Partial Pressure CO2 23 L 35-48 mmHg Arterial Blood Partial Pressure O2 72.6 L 83.0-108.0 mmHg Arterial Blood HCO3 15.3 L 21.0-28.0 mmol/L Arterial Blood Oxygen Saturation 95.4 94.0-98.0 % Arterial Blood Base Excess -6.7 L -2.0-3.0 mmol/L Blood Gas Temperature 37.0 35.5-37.0 CELSIUS Blood Gas Flow-by 2.00 0.00-15.00 L/min Blood Gas Vent Mode NC ROOM AIR FiO2 28.0 % Blood Gas Specimen Comment RR RN CAROL Test 06/17/24 11:55 06/17/24 09:38 06/17/24 04:16 Range/Units Prothrombin Time 17.7 H 9.6-11.6 SEC Prothromb Time International Ratio 1.66 H 0.85-1.15 Activated Partial Thromboplast Time 46.7 H 26.3-35.5 SEC Blood Gas PEEP 5 cm H2O Procalcitonin 3.99 H 0.05-0.5 ng/mL ASSESSMENT: This is a 53 year old male patient with current problems which include: Acute hypoxic respiratory failure Multifocal pneumonia Thrombocytopenia Liver cirrhosis, ascites Debility PLAN: Continue cefepime Continue Flagyl Continue vancomycin Continue critical care support monitor electrolytes continue thiamine continue oxygen continue precedex follow up with cultures This case has been discussed with my supervising physician Dr. Mora. Case has been discussed and agreed upon. AURELIANO MENA Jun 18, 2024 14:46
[2024-06-18] MEDS ORDERED: MEROPENEM 500MG 500 MG VIAL IV SCH (16:00)
--- NOTE | 2024-06-18 16:25 | HMCSR ---
APPROVED REPORT EXAM: LIMITED Two-dimensional and M-mode echocardiogram. INDICATION ICD: Assess LV Function Left Ventricle Left ventricular cavity size is normal. NO REGIONAL WALL MOTION ABNORMALITIES NOTED IN VIEWS OBTAINED There is normal left ventricular wall thickness. LVEF is 50-55%. Conclusion LVEF is 50-55%. NO REGIONAL WALL MOTION ABNORMALITIES NOTED IN VIEWS OBTAINED
[2024-06-18] MEDS ORDERED: ceFEPime HCL 2 GM VIAL IVPB SCH (16:30)
[2024-06-18] MEDS: diazePAM 5 MG TAB NG SCH (16:32)
[2024-06-18] MEDS: ceFEPime HCL 2 GM VIAL IVPB SCH (16:33)
[2024-06-18] MEDS: furoSEMIDE 20MG VIAL IV ONE (16:33)
[2024-06-18] MEDS ORDERED: MEROPENEM 1GM 1 GM VIAL IV SCH (20:00)
[2024-06-19] VITALS (51 sets, daily range): BP systolic 91–134; BP diastolic 40–89; PULSE 69–137; RESP 16–46; TEMP 97.9–99.6; O2SAT 93–98
[2024-06-19 05:05] LABS: HEMATOCRIT 27.2 % (42-54); MEAN CORPUSCULAR HEMOGLOBIN 34.7 pg (27.0-33.0); MEAN CORPUSCULAR HGB CONC 33.5 g/dL (32.0-36.0); MEAN CORPUSCULAR VOLUME 103.8 fL (79-99); RED BLOOD CELL COUNT(AUTO) 2.62 MIL/uL (4.50-6.20); RED CELL DISTRIBUTION WIDTH 13.7 % (11.0-15.5)
[2024-06-19] MEDS: acetaMINOPHEN 325 MG/10.15ML UDCUP PO ONE (05:06)
[2024-06-19] MEDS: 0.9% NACL 250ML 250 ML IV SCH (05:07)
[2024-06-19 05:36] LABS: ALBUMIN 1.8 g/dL (3.5-5.0); BILIRUBIN,TOTAL 4.6 mg/dL (0.2-1.0); CREATININE 1.2 mg/dL (0.5-1.3); MAGNESIUM 1.7 mg/dL (1.80-2.40); POTASSIUM 3.3 mmol/L (3.5-5.1)
[2024-06-19] MEDS: furoSEMIDE 20MG VIAL IV SCH (08:27)
--- NOTE | 2024-06-19 10:22 | HMCIMG ---
FRONTAL CHEST RADIOGRAPH INDICATION: PNA COMPARISON: 06/18/2024 FINDINGS/IMPRESSION: traffic monitor specialist leads overlie the field of view. Removal of right IJ catheter, but stable left PICC and nasogastric tube. Stable heart size without pulmonary vascular congestion. Unchanged bilateral lower lung opacities, and suspect trace layering bilateral pleural effusions, but no evidence for pneumothorax.
--- NOTE | 2024-06-19 10:40 | PN ---
[facility] PROGRESS NOTE Date Patient Seen: Jun 19, 2024 Time of Visit: 10:31 Supervising Physician: Dr. Mccollum Primary Care Physician: Self Referral, Outpatient Specialists: Inpatient Consults: Dr Mena. 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 He has less pressor support only on Levophed today at 0.4 micrograms/kilogram per minute. He is still critically ill. Current vital signs and blood pressure 128/72 respiratory rate of 24 saturating 95% with FiO2 of 70%, heart rate 96 beats per minute, he developed a fever yesterday of 101.1 in the last 24 hours. He continues antibiotics with vanco cefepime and Flagyl. Sister is at the bedside who answered a few questions in regards to his medical history. She reports she has not been very informed of patient for the last three years but she reports patient has been told he has liver cirrhosis at least three years ago. He was told that if he did in quit drinking that he could within the next year. She also reports patient has heart problems and at one point he was placed on a LifeVest for heart failure. Urine output 2.3 L with a balance of-483 mL. On laboratory WBCs are 11.2 H&H is 10.1/29.7 seemed to be stable. Platelet count 59 K decreased from yesterday which was 91 K. Latest ABG with a pH of 7.35 pCO2 of 33 PO2 of 251 and bicarb of 17.9 base excess-6.7 improvement from yesterday. Ventilator Settings Adjusted To Assist Control Volume Control Tidal Volume Of 425 Respiratory Rate Of 24 Fio2 Of 70% And Peep Of 5. 2D echo shows EF of 40% with grade 1 diastolic dysfunction. Venous ultrasound with normal bilateral lower extremity venous Doppler. Ultrasound of the abdomen with moderate to marked hepatic steatosis, the liver is enlarged at 17 cm., ascites otherwise unremarkable exam including no abnormal per has been. Patient has a MELD score of 19 point which is 19.6% of estimated 3month mortality. EGD for today has been canceled per GI due to pt still on pressor support. Pt's sister was at the bedside and has requested for pt code status to be changed to DNR. 06/11/24: Patient continues critically ill currently on Levophed at 0.04 micrograms/kilogram per minute, fentanyl 125 micrograms/hour, Versed weaning at 4 milligrams/hour. He continues on Sandostatin drip and Protonix drip. We will switch to Protonix 40 ivp BID for now. Patient has been afebrile heart rate in the 80s hemodynamically improving blood pressure 108/68 with a map of 81 respiratory rate adjusted to 18 saturating 97% with a FiO2 45% on the vent, current settings of assist control volume control tidal volume of 425 respiratory rate of 18 FiO2 of 45 and PEEP of five. Prior ABGs showed a pH of 7.51, pCO2 of 31 PO2 of 140 and bicarb of 24.2. Chest x-ray shows pulmonary pattern has been for no worrisome interval changes have taken place. Stable exam. ET tube 6.5 cm from the louis communicated with respiratory for insertion in 1.5 cm. We will continue to wean off sedation to assess mental status. once pt breathing over the vent we may start SBT. 06/12/24-patient assessed in room 206 ICU. As per RN no major overnight events. Has been off sedation since seven in the morning fentanyl and Versed has been turned off. We will assess respiratory status due to right now patient is still breathing on the vent and once he breathe over the vent we can start spontaneous breathing trials. Patient continues on low-dose Levophed at 0.04 micrograms/kilograms per minute attempting to wean off pressors. Hemodynamically stable at this time with blood pressure 107/71 heart rate of 90 respiratory rate of 13 saturating 97% with a FiO2 of 45%. Latest ABGs show pH of 7.42 pCO2 of 38 PO2 of 114 bicarb 24.7 O2 saturation 98.3 weaning on the FiO2. Input was 3.7 L in the last 24 hours with a balance of-2.7 L. he was on Lasix 40 mg IV push q.12 hours we will decreased now to Lasix 20 mg IV push daily which is equivalent to his Lasix 40 mg p.o. home medication. On laboratory WBCs are 10.9 trending down with the improvement H&H is stable 10.1/29.8 with a platelet count of 55 K. chemistries sodium 147 BUN 22 creatinine 1.4 GFR of 59 improving. Glucose of 197 mg/dL total protein 5.9 albumin 2.3. Sister at the bedside. I updated her with today is findings and answered all her questions. Inform her of the plan of care and she verbalized agreement. 06/13/24-patient assessed in room 206 in the ICU. This morning he is off pressors hemodynamically stable blood pressure 105/71 with a heart rate of 100 saturating 94% with a FiO2 of 45% on the vent breathing slightly over the vent at 18 with a rate on the vent of 14 and has been afebrile. Patient tolerated CPAP trials yesterday. Patient with minor movements and grimacing to face not fully awake and following commands. He has been off sedation x2 days. We will order CT head and brain without contrast to rule CVA. Urine output 2.7 L with a balance of -1.9. On laboratory WBCs are 9.1 H&H is 9.1/27.3 platelet count is 59 K. patient has been NPO due to GI bleed and we will start LR at a low-rate of 50 mL/hour. Patient may be encephalopathic from hypernatremia sodium of 153. Potassium of 3.1 chloride 113 carbon dioxide 30 BUN of 34 creatinine of 1.4 and GFR 59. Glucose of 212 mg/dL adjusted insulin sliding scale to #2 for hyperglycemia. Otherwise chest x-ray shows stable exam no worrisome interval changes. ET tube readjusted inserted 1.5 cm in per RT. We will follow GI recommendations in regards to a possible endoscopies since patient is off pressors and hemodynamically stable. CT of the head and brain without contrast ordered and is pending to be resulted. 06/14/2024: At the time of my evaluation, the patient is lying bed. Sister was present at the bedside during my visit. The patient has been off sedation x2 days and is still not arousable, RASS score of -5. CT head done on 06/13/2024, showed no concerning intracranial abnormality. He remains intubated and mechanically vented. Vital signs are in the hypotensive range systolic in the 80s with a map of 62, this was off Levophed. The patient continues on feeding through the OGT for nutritional support. I and O shows a net balance of 1129.0. Laboratory data today, showed stable WBC count, low H&H and platelet count. Chemistry panel showed no derangement of concern. Staff nurse showed no report of recurrent bleed. No new complaint. 06/15/2024: At the time of my evaluation, the patient is lying in bed. The staff nurses present at the bedside as well as family members. Per the staff nurse, the patient was weaned off sedation and became very agitated overnight. His Precedex was resumed and he is currently RASS score of -2. The patient remains intubated and mechanically vented. ACVC rate of 12, TV 425, peep of 5 and FiO2 35%. On the monitor, the patient is hypotensive systolic in the 80s. Currently, was off Levophed and continues on midodrine. The patient continues on nutritional support via OGT and no report of nausea, vomiting or diarrhea. The patient remains with Gomez catheter in place abran color urine. Net balance on I's and O's of 1797.8. On labs, the was a increase in WBC count from 9.4 yesterday to 15.5 today. Cultures are negative. No acute events noted overnight. No other complaint. 06/16/2024: At the time of my evaluation, the patient was lying in bed. Per [facility] staff nurse, the patient has been off sedation since this a.m.. RASS score of -2. The patient remains intubated and mechanically vented currently on SBT. Chest x-ray showed bilateral effusion. The patient continues on antibiotic coverage with cefepime, vanco and Flagyl Vital signs are hemodynamically stable on low-dose Levophed and high dose midodrine. There was no complaint of chest pain. There was no nausea, vomiting or diarrhea. Patient continues with Gomez catheter in place draining dark abran colored urine and has a net balance of 1939.8. On labs today, there was a increase in WBC count to 18.1, H and H showed a drop from 10.3/30.6-9.3/28.2. Chemistry panel showed a slightly lower potassium to 3.4 and a magnesium of 1.70. Liver parameters showed a total bili of 30.0, AST of 45, ALT is 15 and alk-phos of 96. Otherwise, no other complaint. 06/17/2024: At the time of my evaluation, the patient was lying in bed. Per the staff nurse, the patient has been off sedation since this a.m.. RASS score of 0. The patient remains intubated and mechanically vented currently on SBT. Chest x-ray showed bilateral effusion. The patient continues on antibiotic coverage with cefepime, vanco and Flagyl Vital signs are hemodynamically stable currently off Levophed and high dose midodrine. There was no complaint of chest pain. Today, the patient's abdomen was noted more distended than usual. There was no nausea, vomiting or diarrhea. Patient continues with Gomez catheter in place draining dark abran colored urine and urine output over the last24 hours was 900 mL with a net balance of 3716.6. On labs today, there was a increase in WBC count to 18.6, H and H remained stable. Chemistry panel showed a slightly lower potassium to 3.5 and a magnesium of 2.10. Liver parameters showed a total bili of 3.1, AST of 64, ALT is 22 and alk-phos of 96. Otherwise, no other complaint. 06/18/2024: At the time of my evaluation, the patient was lying in bed. Per the staff nurse, the patient was started on Precedex due to symptoms of alcohol withdrawal, currently on Precedex 0.5mcg. RASS score of 0. The patient was successfully extubated yesterday and is currently tolerating nasal cannula2 liters/minute. Chest x-ray showed bilateral effusion. Vital signs are hemodyn amically stable currently off Levophed and high dose midodrine. There was no complaint of chest pain. CT abdomen obtained showed no obstruction, there was likely liver cirrhosis with [id number] ascites and findings of chronic pancreatitis. There was no nausea, vomiting or diarrhea. The patient is receiving IV NS at 75 per hour. Urinary output for the past24 hours, total 900 mL with a net balance of 2241.0. On labs today, the patient did show a increase of WBCs to 19.7, H and H remains stable. Chemistry panel showed no major derangement. Liver parameters showed a increase total bili of 4.5, AST of 107 and ALT of33 with a alk-phos of 157. This is related to his liver disease. Microbiology data showing negative blood cultures x2, tracheal aspirate growing Gram-negative rods. The patient continues on antibiotic coverage with cefepime, vanco and Flagyl. Otherwise, no other complaint. 06/19/2024: At the time of my evaluation, the patient was lying in bed. Per the staff nurse, the patient again showing withdrawal episodes overnight needing to resume the Precedex and was started on Valium. Respiratory english the patient is maintaining optimal oxygenation and saturation on nasal cannula currently at 2 liters/minute. Chest x-ray today showed no acute interval change. Patient reports no shortness a breath or increased work of breathing and SpO2 maintain above 92%. On the monitor, the patient is hemodynamically stable. Denies any chest pain and no arrhythmias were noted. The patient is feeding via the NGT with Vital HP 20 liters/minutes and there is no nausea, vomiting or diarrhea. The patient is voiding follow a Gomez catheter, total voided volume of 1650 and a net fluid balance of 315.0. On labs today, CBC showed persisting WBC elevation today at 16.0. Chemistry panel showed a sodium of 147, potassium of 3.3 And a Mag of 1.70. There was also total bili of 4.6, AST 82 and ALT of 34. Remaining lab parameters showed were not of significant concern. Microbiology data slowing tracheal aspirate culture with Gram-negative rods No other complaint. REVIEW OF SYSTEMS: Unable to perform due to patient's intubated. PHYSICAL EXAM: GENERAL: Intubated off sedation HEENT: Sclera non icteric, dry mucosa NECK: Supple, no JVD, trachea midline LUNGS: Diminished breath sounds bilaterally. No wheezes HEART: Regular rate and rhythm. Normal S1 and S2, without murmurs ABD: Abdomen soft, nontender. Bowel sounds present EXT: No clubbing cyanosis , swelling to bilateral lower extremities. NEURO: Intubated off sedation Vital Signs (last 8hr) Date Time Temp Pulse Resp B/P (MAP) Pulse Ox O2 Delivery O2 Flow Rate FiO2 06/19/24 09:00 96 Nasal Cannula* 2 28 Aerosol Mask+ 06/19/24 09:00 98 24 115/68 (84) 96 06/19/24 08:16 127 37 107/81 (90) 100 06/19/24 08:00 98.2 135 38 111/57 (75) 94 06/19/24 07:16 136 18 122/77 (92) 98 06/19/24 07:00 134 35 124/87 (99) 98 06/19/24 06:21 129 32 06/19/24 05:16 137 24 128/74 (92) 97 06/19/24 05:06 99.7 06/19/24 05:00 131 22 99/57 (71) 96 06/19/24 04:46 132 27 99/57 (71) 98 06/19/24 04:30 135 22 99/57 (71) 96 06/19/24 04:16 132 17 93/59 (70) 99 06/19/24 04:00 99.7 122 24 92/58 (69) 98 06/19/24 03:00 119 24 93/59 (70) 97 LABS: Hematology Labs: Test 06/19/24 04:18 06/18/24 04:08 Range/Units White Blood Count 16.0 H 4.8-10.8 K/uL Red Blood Count 2.62 L 4.50-6.20 MIL/uL Hemoglobin 9.1 L 14.0-18.0 g/dL Hematocrit 27.2 L 42-54 % Mean Corpuscular Volume 103.8 H 79-99 fL Mean Corpuscular Hemoglobin 34.7 H 27.0-33.0 pg Mean Corpuscular Hemoglobin Concent 33.5 32.0-36.0 g/dL Red Cell Distribution Width 13.7 11.0-15.5 % Platelet Count 197 # 130-400 K/uL Mean Platelet Volume 13.1 H 7.5-10.5 fL Nucleated Red Blood Cells 0.0 0.0-0.19 % Immature Granulocyte % (Auto) 1.1 H 0-1 % Neutrophils (%) (Auto) 86.1 H 40.0-77.0 % Lymphocytes (%) (Auto) 5.5 L 21.0-51.0 % Monocytes (%) (Auto) 6.8 3.0-13.0 % Eosinophils (%) (Auto) 0.2 0.0-8.0 % Basophils (%) (Auto) 0.3 0.0-5.0 % Neutrophils # (Auto) 17.0 H 1.8-7.7 K/uL Lymphocytes # (Auto) 1.1 1.0-4.8 K/uL Monocytes # (Auto) 1.4 H 0.1-1.0 K/uL Eosinophils # (Auto) 0.04 0.00-0.70 K/uL Basophils # (Auto) 0.06 0.00-0.20 K/uL Absolute Immature Granulocyte (auto 0.22 0-1 K/uL Chemistry Labs: Test 06/19/24 04:23 06/19/24 04:18 06/18/24 04:08 Range/Units Whole Blood Glucose 134 H 70-110 MG/DL Sodium Level 147 H 136-145 mmol/L Potassium Level 3.3 L 3.5-5.1 mmol/L Chloride Level 114 H 101-111 mmol/L Carbon Dioxide Level 20 L 21-32 mmol/L Blood Urea Nitrogen 31 H 7-18 mg/dL Creatinine 1.2 0.5-1.3 mg/dL Glomerular Filtration Rate Calc 71 >90 mL/min Random Glucose 138 H 70-105 mg/dL Total Calcium 7.6 L 8.5-10.1 mg/dL Magnesium Level 1.70 L 1.80-2.40 mg/dL Total Bilirubin 4.6 H 0.2-1.0 mg/dL Aspartate Amino Transf (AST/SGOT) 82 H 10-37 U/L Alanine Aminotransferase (ALT/SGPT) 34 12-78 U/L Alkaline Phosphatase 140 H 50-136 U/L Total Protein 5.0 L 6.0-8.3 g/dL Albumin 1.8 L 3.5-5.0 g/dL B-Type Natriuretic Peptide 551 H 0-100 pg/mL Coagulation Labs: Test 06/17/24 11:55 Range/Units Prothrombin Time 17.7 H 9.6-11.6 SEC Prothromb Time International Ratio 1.66 H 0.85-1.15 Activated Partial Thromboplast Time 46.7 H 26.3-35.5 SEC DIAGNOSTICS / RADIOLOGY RESULTS: [ ] PLAN Daily sedation vacation. daily SBT's CT head and brain without contrast Precedex only if absolutely needed. Change Protonix gtt to IVP BID LR at 50 mL/hour for light hydration due to NPO status. Follow GI recommendations: Endoscopy? 06/14/2024: For now, we are going to continue current management for the patient. He will remain off of sedation and we will monitor his level of consciousness. I am going to repeat CT head/brain without contrast in a.m. and we will continue to correct any metabolic abnormalities that may affect his level of consciousness. Patient will remain intubated and we will continue with daily spontaneous breathing trials. I am going to increase the midodrine to 15 mg 3 times daily and we will monitor for bradycardic events. We will monitor the vital signs and heart rate. We will follow GI as planned on the possibility for endoscopic evaluation and we will continue to monitor for any recurrent bleed. The patient continue on Protonix IV twice daily. Siding Coreboard Inspector on board due to the anemia. Blood, urine and sputum cultures are negative. Patient is developing a DTI to the buttocks for which we will consult wound care special ist. We will monitor the patient's progress and response to management. Patient remains critically ill and his prognosis is poor. Per the sister's input, if the patient would require trach and PEG, they might opt against it, patient is a DNR. We will continue to provide general supportive care, GI and DVT prophylaxis. Further orders per attending MD and hospital course. 06/15/2024: For now, we are going to continue current management for the patient. He will remain mechanically vented for now. We will attempt weaning trials once he is hemodynamically stable. We will resume the Levophed and titrate to maintain map above 65. We will put the patient on IV LR give a 500 mL bolus then continue at 75 mL/hour. We will monitor the blood pressure trend and adjust as necessary. We will continue feeding through the OGT and we will monitor for nausea, vomiting or diarrhea. We will follow the input of the treating specialist. We will monitor the patient's progress and response to management. We will continue to provide general supportive care, GI and DVT prophylaxis. Further orders per attending MD and hospital course. 06/16/2024: For now, we are going to continue current management for the patient. The patient for now we will remain off sedation. We will continue with SBTs in attempt to wean off the vent, possibly in the upcoming days. The patient is going to continue on antibiotic coverage as ordered. We will also continue on bronchodilator therapy. We will give the patient a dose of IV Lasix 20 mg x1 now. We will repeat a chest x-ray in a.m. We will monitor for any arrhythmias or other cardiac events. The patient will continue to feed on OGT with Vital HP. We will monitor the urinary output and bowel activity. Because of the increasing WBCs, I am going to panculture the patient once again and if no improvement of WBCs in the next 24 hours, we will broaden antibiotic spectrum. We will repeat surveillance labs in the morning with inclusion of a procalcitonin level. We will monitor the patient's progress and response to management. We will continue to provide general supportive care, GI and DVT prophylaxis. Further orders per attending MD and hospital course. 06/17/2024: For now, we are going to continue current management for the patient. The patient for now we will remain off sedation. We will continue with SBTs in attempt to wean off the vent, possibly today. The patient is going to continue on antibiotic coverage as ordered. We will also continue on bronchodilator therapy. We will repeat a chest x-ray in a.m. We will monitor for any arrhythmias or other cardiac events. I am going to challenge the patient with a dose of albumin and monitor the blood pressure trend. The patient will continue to feed on OGT with Vital HP. We will monitor the urinary output and bowel activity. I am going to order a KUB due to the abdominal distention. A sputum culture showing 1+ Gram-negative rods, blood cultures x2 were negative. We will repeat surveillance labs in the morning with inclusion of a pr ocalcitonin level has significantly improved to 3.99. Infectious Disease specialist was consulted. We will monitor the patient's progress and response to management. We will continue to provide general supportive care, GI and DVT prophylaxis. Further orders per attending MD and hospital course. 06/18/2024: For now, we are going to continue current management for the patient. The patient we will continue on Precedex 0.5 mcg for now. He will continue with nasal cannula and we will monitor the oxygen saturation. Rural Electrification Engineer's is now following the patient and planned for a limited echo to re-evaluate the LVEF, this has been ordered and pending results. The patient is going to continue on antibiotic coverage as ordered and we will continue to follow the WBC trend. We will repeat a CBC later today and we will follow the WBC count. We will monitor for any arrhythmias or other cardiac events. The patient will continue to feed on NGT with Vital HP. We will monitor the urinary output and bowel activity. He will continue on IVF with NS at 75 cc/hour to complete the Liter. We will continue to monitor the blood culture and tracheal a spirate results and adjust antibiotic therapy as necessary. We will repeat surveillance labs in the morning. We will monitor the patient's progress and response to management. We will continue to provide general supportive care, GI and DVT prophylaxis. Further orders per attending MD and hospital course. 06/19/2024: For now, we are going to continue current management for the patient. The patient was against started on Precedex overnight due to agitation but is now off Precedex. He will continue with nasal cannula and we will monitor the oxygen saturation. Rural Electrification Engineer's is following the patient and repeat echo showed LVEF of 50-55% with no regional wall motion abnormalities. We will monitor for any arrhythmias or other cardiac events. The patient was started on Lasix 20 mg b.i.d. Urinary output improved. The patient will continue to feed on NGT with Vital HP, we will consult speech therapist for swallow eval. The patient was changed over to Merrem yesterday, unfortunately at some point overnight the patient was changed back to cefepime, vanco and Flagyl. I discussed the case with the pharmacist and we will change the patient back to Merrem1 g IV q.12. We will continue to follow the WBC trend. We will monitor the urinary output and bowel activity. We will continue to monitor the blood culture and tracheal aspirate results and adjust antibiotic therapy as necessary. We will repeat surveillance labs in the morning. We will monitor the patient's progress and response to management. We will continue to provide general supportive care, GI and DVT prophylaxis. Further orders per attending MD and hospital course. NEURO: Minimize central acting medications as possible. Fall Precautions. Well lighted room through the day and minimize interruptions through the night to prevent acute delirium. PULMONARY: Supplemental 02 as needed Titrate Fio2 to keep Spo2 > or = 90% DuoNebs and CPT as needed IS hourly while awake for pulmonary hygiene Out of bed to chair as tolerated VAP Bundle Vent/BIPAP : Titrate to maintain optimal ventilation and oxygen saturation. Daily SBTs. CARDIOVASCULAR: Follow hemodynamics. Titrate vasopressor to keep MAP >65 or systolic blood pressure >95mmHg Cardiac monitoring Drips:: None LINES: RT IJ CVC PIV GI & NUTRITION: Continue nutritional support Aspirations precautions Prokinetic agents and laxatives as needed To low intermittent suction KIDNEYS & ELECTROLYTES: Strict monitoring of intake and output Daily weights Avoid nephrotoxic agents Monitor electrolytes and replace as needed Goal urine output of 30mL/hr or 0.5mL/kg/hr Monitor electrolytes and replace accordingly ENDOCRINE: Goal blood glucose between 100-180 at all times. INFECTIOUS DISEASE: Trend temperature. Salmeron-culture if febrile. Micro: Urine culture no growth Blood cultures no growth Respiratory cultures no growth Antibiotics: Vancomycin Cefepime Flagyl HEMATOLOGY & COAGULATION: Monitor H&H. Keep Hgb > 7 Transfuse 1 unit of PRBC for Hgb < 7 Transfuse 1 pack of platelets of platelets < 20, 000 Watch for any signs and symptoms of bleeding SKIN: Pressure ulcer prevention per facility protocol group insurance specialist on board Rehab: PT/OT Prophylaxis: GI: Protonix IV 40mg BID DVT: SCDs due to GI bleed. Code Status: Full Resuscitation Disposition: ICU Other: Total patient care time exceeds 50 minutes excluding all procedures. Case was discussed and seen with my supervising physician. The above plan was formulated and agreed upon. FATIMAH SANTIAGO NP Jun 19, 2024 10:39
[2024-06-19] MEDS: IpraTROPium 0.5 MG/2.5 ML INH IH SCH (11:07)
--- NOTE | 2024-06-19 13:05 | NUR ---
BEDSIDE SWALLOW EVAL COMPLETED. s/s of aspiration observed WITH THIN, NECTAR, AND HONEY THICK LIQUIDS SECONDARY TO SIGNIFICANT SWALLOW DELAY. MULTIPLE SWALLOWS NOTED WITH ALL CONSISTENCIES. Pt AWAKE BUT LETHARGIC BUT WAS COOPERATIVE WITH PO TRIALS. APHONIC THROUGHOUT ASSESSMENT S/P EXTUBATION X 2 DAYS ACCORDING TO NURSE. Recommend NPO AND CONTINUE NUTRITION/HYDRATION VIA NG TUBE UNTIL MBSS IS COMPLETED. RESULTS AND RECOMMENDATIONS DISCUSSED WITH NURSE. Addendum: 06/19/24 at 1503 by SPARKLE TRINIDAD Amended: Links added.
--- NOTE | 2024-06-19 13:14 | PN ---
[facility] PROGRESS NOTE Date of Service: Jun 19, 2024 Time of Service: 13:04 SUBJECTIVE: [06/12/24 53-year-old male who was admitted due to persistent nausea vomiting, patient also was noted with metabolic acidosis initially was placed on BiPAP support and patient decompensated immediately and was intubated. He is being managed by critical care team. He continues to be intubated on AC mode. Patient is still on pressor support. Continues with IV antibiotics, was started with furosemide 20 mg IV q.12 hours today. We will continue to monitor closely. Patient is still currently intubated. 06/13/24 Pt was seen by STRUCTURAL SHOP HELPER and physician during rounding in room 206. Family member/sister at the bedside. Pt is s/p EGD today which showed non bleeding ulcers. CT Head/Brain negative. Per GI we can restart tube feedings. Pt off sedation . We will continue monitoring pt. AM labs 06/14/24 patient was seen by STRUCTURAL SHOP HELPER and physician during rounding. Sister at the bedside. CT head brain is negative. Chest x-ray stable exam. Patient was already started on feeding tubes per dietary recommendations. Patient continues to be in ICU. Patient is off pressors hemodynamically stable. Patient is saturating 94% with FiO2 of 45 on vent with a rate of 18, rate on vent of 18 and has been afebrile. Patient not fully awakened and does not follow commands. Off sedation day 2. Labs reviewed. We will follow GI recommendation in regarding possible endoscopic exam. 06/15/24 patient was seen by STRUCTURAL SHOP HELPER and physician during rounding in room 206. Sister at the bedside updated records to further plan. WBC today is 15.5 which has a significant increase from the prior day which was 9.6. Blood culture negative x2 for the past four days. Sputum final culture negative. Final urine culture negative. Chest x-ray stable exam. Head CT showed atrophy and chronic small- vessel ischemic changes. Patient was weaned off sedation and became very agitated overnight. The patient remains intubated and mechanically vented. ACVC rate of 12, TV 425, peep of 5 and FiO2 35%. Currently patient is off Levophed and continues to be on midodrine. Patient has a Gomez catheter in place abran color of the urine. We will continue to monitor patient in the meantime. A.m. labs 06/16/24 patient was seen by nurse practitioner physician during rounding in room 206. Family members at the bedside. Patient was evaluated by poultry buyer and at this moment patient continues to be hypotensive requiring midodrine therapy. Appeals Coordinator does not want to place patient on aspirin therapy given the risk of bleeding.His left ventricular systolic function is reduced, however no confirmed diagnosis of coronary artery disease/ischemic cardiomyopathy. When patient is extubated and shows improvement, then they would like to repeat little bit echo to re-evaluate the LVEF. Precedex was resumed and is currently RASS score of negative two.ACVC rate of 12, TV 425, peep of 5 and FiO2 35%. On the monitor, the patient is hypotensive systolic in the 80s. The patient remains with Gomez catheter in place abran color urine. We will continue to monitor patient in the meantime. A.m. labs 06/17/24 patient was seen by nurse practitioner and physician during rounding. Patient is awake and follows commands. Patient continues to be on CPAP at this moment. No pressors no Precedex. We are waiting for ICU team for possible extubation today. We will follow up. A.m. labs 06/18 patient is seen and examined at bedside, case discussed with the RN, patient is successfully extubated yesterday, was mildly restless, started on Precedex. During my visit he is awake, alert oriented x3, following commands. He is on supplemental oxygen via nasal cannula at 2 L saturating 99%. Hemodynamically stable. Patient evaluated by poultry buyer, patient admitted with a acute on chronic diastolic CHF with a LVEF 40%. Recommended to repeat limited echo to re-evaluate LVEF. Pending patient's recovery from acute illness can consider noninvasive cardiac stress testing to evaluate for ischemia. 06/19 patient seen at bedside, no acute events overnight. Patient continues with alcohol withdrawals last CIWA score of 12, continue with Precedex and alcohol withdrawal protocol. WBC increased from 13.3 up to 16.0, hemoglobin improved from 8.8 up to 9.1, sodium increased from 144 up to 147, potassium decreased from 3.6 down to 3.3, remainder of his labs are relatively unremarkable. Patient failed a swallow study several days ago, we will have speech reassess him again tomorrow. If he fails he may need placement of PEG tube. REVIEW OF SYSTEMS 12 point review of systems negative unless noted in HPI PHYSICAL EXAM GENERAL APPEARANCE: The patient is awake, alert, and oriented, in no acute cardiopulmonary distress. NEUROLOGICAL: Cranial nerves II-XII grossly intact. Motor is 5/5 in bilateral upper and lower extremities proximal to distal. No sensory deficits. HEENT: Face is symmetric. Pupils are equal and reactive. Extraocular movements are intact. NECK: Supple. No JVD. No thyromegaly. No submental, submandibular, pre- /postauricular, occipital or supraclavicular lymphadenopathy. CHEST: Normal chest expansion. No Telemetry. LUNGS: Decreased bilateral breath sounds on the lower bases per auscultation CARDIOVASCULAR: Regular. S1 and S2 normal. No appreciable rubs, murmurs or gallops. ABDOMEN: Soft, nontender, and nondistended. There is no rebound, voluntary guarding, or rigidity. : Deferred. Gomez. EXTREMITIES: Non-edematous and not cyanotic. No clubbing. Good capillary refill. SKIN: No skin breakdown. Vital Signs (last 8hr) Date Time Temp Pulse Resp B/P (MAP) Pulse Ox O2 Delivery O2 Flow Rate FiO2 06/19/24 11:46 99.1 06/19/24 11:16 83 31 119/70 (86) 92 06/19/24 11:08 83 23 06/19/24 11:00 83 34 105/44 (64) 100 06/19/24 10:16 92 32 91/64 (73) 100 06/19/24 10:00 93 33 125/45 (71) 100 06/19/24 09:16 90 32 123/58 (79) 100 06/19/24 09:00 96 Nasal Cannula* 2 28 Aerosol Mask+ 06/19/24 09:00 98 24 115/68 (84) 96 06/19/24 08:16 127 37 107/81 (90) 100 06/19/24 08:00 98.2 135 38 111/57 (75) 94 06/19/24 07:16 136 18 122/77 (92) 98 06/19/24 07:15 98.8 06/19/24 07:00 134 35 124/87 (99) 98 06/19/24 06:21 129 32 06/19/24 05:16 137 24 128/74 (92) 97 06/19/24 05:06 99.7 LABS: Laboratory: Test 06/19/24 11:27 06/19/24 04:18 06/18/24 04:08 06/18/24 03:38 Range/Units Whole Blood Glucose 149 H 70-110 MG/DL White Blood Count 16.0 H 4.8-10.8 K/uL Red Blood Count 2.62 L 4.50-6.20 MIL/uL Hemoglobin 9.1 L 14.0-18.0 g/dL Hematocrit 27.2 L 42-54 % Mean Corpuscular Volume 103.8 H 79-99 fL Mean Corpuscular Hemoglobin 34.7 H 27.0-33.0 pg Mean Corpuscular Hemoglobin Concent 33.5 32.0-36.0 g/dL Red Cell Distribution Width 13.7 11.0-15.5 % Platelet Count 197 # 130-400 K/uL Mean Platelet Volume 13.1 H 7.5-10.5 fL Nucleated Red Blood Cells 0.0 0.0-0.19 % Sodium Level 147 H 136-145 mmol/L Potassium Level 3.3 L 3.5-5.1 mmol/L Chloride Level 114 H 101-111 mmol/L Carbon Dioxide Level 20 L 21-32 mmol/L Blood Urea Nitrogen 31 H 7-18 mg/dL Creatinine 1.2 0.5-1.3 mg/dL Glomerular Filtration Rate Calc 71 >90 mL/min Random Glucose 138 H 70-105 mg/dL Total Calcium 7.6 L 8.5-10.1 mg/dL Magnesium Level 1.70 L 1.80-2.40 mg/dL Total Bilirubin 4.6 H 0.2-1.0 mg/dL Aspartate Amino Transf (AST/SGOT) 82 H 10-37 U/L Alanine Aminotransferase (ALT/SGPT) 34 12-78 U/L Alkaline Phosphatase 140 H 50-136 U/L Total Protein 5.0 L 6.0-8.3 g/dL Albumin 1.8 L 3.5-5.0 g/dL Immature Granulocyte % (Auto) 1.1 H 0-1 % Neutrophils (%) (Auto) 86.1 H 40.0-77.0 % Lymphocytes (%) (Auto) 5.5 L 21.0-51.0 % Monocytes (%) (Auto) 6.8 3.0-13.0 % Eosinophils (%) (Auto) 0.2 0.0-8.0 % Basophils (%) (Auto) 0.3 0.0-5.0 % Neutrophils # (Auto) 17.0 H 1.8-7.7 K/uL Lymphocytes # (Auto) 1.1 1.0-4.8 K/uL Monocytes # (Auto) 1.4 H 0.1-1.0 K/uL Eosinophils # (Auto) 0.04 0.00-0.70 K/uL Basophils # (Auto) 0.06 0.00-0.20 K/uL Absolute Immature Granulocyte (auto 0.22 0-1 K/uL B-Type Natriuretic Peptide 551 H 0-100 pg/mL Blood Gas Specimen Type Arterial Arterial Blood pH 7.437 7.350-7.450 Arterial Blood Partial Pressure CO2 23 L 35-48 mmHg Arterial Blood Partial Pressure O2 72.6 L 83.0-108.0 mmHg Arterial Blood HCO3 15.3 L 21.0-28.0 mmol/L Arterial Blood Oxygen Saturation 95.4 94.0-98.0 % Arterial Blood Base Excess -6.7 L -2.0-3.0 mmol/L Blood Gas Temperature 37.0 35.5-37.0 CELSIUS Blood Gas Flow-by 2.00 0.00-15.00 L/min Blood Gas Vent Mode NC ROOM AIR FiO2 28.0 % Blood Gas Specimen Comment RR JEFFREY MEDINA Current Medications Medications (Trade) Dose Ordered Sig/Quan Route PRN Reason Start Time Stop Time Status Last Admin Dose Admin Acetaminophen (TYLenol 500MG TAB) 500 mg Q6H PRN PO TEMP < 101.1 AND/OR HEADACHE 06/09/24 18:00 07/09/24 17:59 06/14/24 17:35 500 MG Albumin Human 100 ml @ 50 mls/hr AD IV 06/12/24 11:00 06/14/24 10:59 DC 06/12/24 13:30 50 MLS/HR Albumin Human 250 ml @ 0 mls/hr AD IV 06/17/24 11:00 06/19/24 10:59 DC 06/17/24 10:54 250 MLS/HR Artificial Tears (Artificial Tears) 1 DROP OR AD Q8H OU 06/09/24 09:00 07/09/24 08:59 06/19/24 08:27 1 DROP Cefepime HCl (MAXipime 2 gm vial) 2 gm Q12H IVPB 06/11/24 05:00 06/18/24 15:59 DC 06/18/24 05:05 2 GM Cefepime HCl (MAXipime 2 gm vial) 2 gm Q12H IVPB 06/18/24 16:30 06/18/24 16:06 DC Cefepime HCl (MAXipime 2 gm vial) 2 gm Q12H IVPB 06/18/24 17:00 06/28/24 16:59 06/19/24 02:32 2 GM Cefepime HCl (MAXipime 2 gm vial) 2 gm Q8H IVPB 06/09/24 09:00 06/10/24 19:49 DC 06/10/24 16:44 2 GM Chlorhexidine Gluconate (Peridex) 15 ml Q8H MM 06/09/24 09:00 06/23/24 08:59 06/19/24 08:27 15 ML Dexmedetomidine/ Sodium Chloride (PRECEdex 400MCG/ 100ML-NS) 400 mcg PROTOCOL IV 06/11/24 20:30 07/11/24 20:29 06/18/24 13:16 400 MCG Dextrose/Sodium Chloride 1,000 ml @ 0 mls/hr AD IV 06/09/24 10:00 06/11/24 13:29 DC Diazepam (VALium 5 mg TAB) 10 mg Q12H NG 06/18/24 16:00 06/22/24 15:59 06/19/24 02:31 10 MG Fentanyl Citrate 100 ml @ 2.5 mls/hr PROTOCOL IV 06/09/24 06:30 06/12/24 13:28 DC 06/11/24 21:06 2.5 MLS/HR Folic Acid (FolVITE 5 MG/ML VIAL) 1 mg DAILY IV 06/09/24 18:00 07/09/24 17:59 06/19/24 08:36 1 MG Furosemide (LASix 20MG VIAL) 20 mg DAILY IV 06/13/24 09:00 06/13/24 09:20 DC 06/13/24 07:59 20 MG Furosemide (LASix 20MG VIAL) 20 mg DAILY IV 06/19/24 09:00 07/19/24 08:59 06/19/24 08:27 20 MG Furosemide (LASix 20MG VIAL) 20 mg Q12H IV 06/09/24 12:00 06/09/24 11:26 DC Furosemide (LASix 20MG VIAL) 20 mg Q6H6 IV 06/09/24 12:00 06/12/24 07:38 DC 06/12/24 06:46 20 MG Furosemide (LASix 20MG VIAL) 40 mg Q12H IV 06/12/24 08:00 06/12/24 14:58 DC 06/12/24 08:16 40 MG Heparin Sodium/ Dextrose 250 ml @ 0 mls/hr PROTOCOL IV 06/09/24 03:30 06/09/24 09:45 DC 06/09/24 03:31 10.78 MLS/HR Insulin Human Regular (humuLIN R 100 UNIT/ML 3ML) INSULIN SLIDING SCAL... Q6H6 SQ 06/11/24 12:00 06/13/24 11:22 DC 06/13/24 06:45 6 UNIT Insulin Human Regular (humuLIN R 100 UNIT/ML 3ML) INSULIN SLIDING SCAL... Q6H6 SQ 06/13/24 12:00 07/13/24 11:59 06/17/24 00:51 6 UNIT Insulin Human Regular 100 unit/ Sodium Chloride 101 ml @ 0 mls/hr PROTOCOL IV 06/09/24 10:00 06/11/24 13:29 DC 06/09/24 11:41 1 MLS/HR Ipratropium [place] (AtrovENT UD) 0.5 MG [id number] 06/14/24 14:00 06/19/24 09:03 DC 06/19/24 06:21 0.5 MG Ipratropium [place] (AtrovENT UD) 0.5 MG [id number] IH 06/19/24 12:00 07/14/24 13:59 06/19/24 11:07 0.5 MG Lactated Ringer's 1,000 ml @ 50 mls/hr Q20H IV 06/13/24 09:30 06/13/24 14:44 DC 06/13/24 11:18 50 MLS/HR Lactated Ringer's 1,000 ml @ 75 mls/hr [id number] IV 06/15/24 11:00 06/17/24 09:36 DC 06/17/24 03:57 75 MLS/HR Lactated Ringer's (Lactated Ringers 1000ml) 500 ml BOLUS IV 06/15/24 10:00 06/15/24 12:31 DC 06/15/24 10:04 500 ML Lactulose (Constulose 20gm/ 30ml Udcup) 20 gm DAILY PO 06/12/24 09:00 07/12/24 08:59 06/19/24 08:26 20 GM Levofloxacin/ Dextrose (LEvaquIN 750 MG/ D5W 150 ML) 750 mg Q24H IV 06/09/24 06:30 06/09/24 08:29 DC Lorazepam (AtiVAN) 2 mg Q4H PRN IVP ALCOHOL WITHDRAWAL PROTOCOL 06/09/24 18:00 06/16/24 17:59 DC Lorazepam (AtiVAN) 4 mg Q2H PRN IVP ALCOHOL WITHDRAWAL PROTOCOL 06/09/24 18:00 06/16/24 17:59 DC Magnesium Sulfate 50 ml @ 0 mls/hr PROTOCOL IV 06/09/24 10:00 06/11/24 13:29 DC 06/11/24 07:13 25 MLS/HR Magnesium Sulfate 50 ml @ 0 mls/hr PROTOCOL PRN IV OTHER [SEE ORDER COMMENTS] 06/09/24 01:00 06/09/24 06:50 DC 06/09/24 01:03 25 MLS/HR Magnesium Sulfate 50 ml @ 0 mls/hr PROTOCOL PRN IV OTHER [SEE ORDER COMMENTS] 06/09/24 07:00 06/09/24 08:35 DC Magnesium Sulfate 50 ml @ 0 mls/hr PROTOCOL PRN IV low magnesium 06/09/24 08:30 06/09/24 09:46 DC Magnesium Sulfate 50 ml @ 0 mls/hr PROTOCOL PRN IV MAGNESIUM PROTOCOL 06/11/24 15:00 07/11/24 14:59 06/19/24 06:32 25 MLS/HR Meropenem (Merrem 1gm) 1 gm Q12H IV 06/18/24 20:00 06/18/24 16:05 DC Meropenem (Merrem 500mg) 500 mg ONCE IV 06/18/24 16:00 06/18/24 16:01 DC Metronidazole/ Sodium Chloride 100 ml @ 100 mls/hr Q8H6 IVPB 06/09/24 14:00 06/19/24 13:59 06/19/24 06:04 100 MLS/HR Midazolam HCl (Midazolam 100mg-0.9% NS 100ml) 100 ml PROTOCOL IV 06/09/24 15:30 06/12/24 10:33 DC 06/11/24 08:05 100 ML Midodrine (PROAMatine 5 MG TABLET) 10 mg TID PO 06/11/24 14:00 06/14/24 10:06 DC 06/14/24 07:47 10 MG Midodrine (PROAMatine 5 MG TABLET) 15 mg TID PO 06/14/24 14:00 07/14/24 13:59 06/19/24 08:36 15 MG Multivitamins Therapeutic (Multivitamin Tablet) 1 tab DAILY PO 06/10/24 09:00 07/10/24 08:59 06/19/24 08:26 1 TAB Norepinephrine Bitartrate (Norepineph 16 Mg/250ml NS Premix) HIGH ALERT Init... PROTOCOL IV 06/09/24 12:30 07/09/24 12:29 06/13/24 19:21 16 MG Octreotide Acetate 1250 mcg/ Sodium Chloride 250 ml @ 0 mls/hr PROTOCOL IV 06/09/24 08:30 06/13/24 13:43 DC 06/11/24 13:17 5 MLS/HR Octreotide Acetate 500 mcg/ Sodium Chloride 100 ml @ 0 mls/hr PROTOCOL IV 06/09/24 04:30 06/09/24 08:13 DC 06/09/24 05:50 5 MLS/HR Ondansetron HCl (zoFRAN 4MG INJ) 4 mg Q4H PRN IV NAUSEA 06/09/24 18:00 07/09/24 17:59 Pantoprazole Sodium (PROTonix 40MG INJ) 40 mg BID IVP 06/11/24 21:00 07/11/24 20:59 06/19/24 08:26 40 MG Pantoprazole Sodium 80 mg/ Sodium Chloride 100 ml @ 10 mls/hr Q10H IVP 06/09/24 04:00 06/11/24 13:24 DC 06/11/24 08:04 10 MLS/HR Pharmacy Profile Note (Pharmacy Communication) 1 each PROTOCOL PRN MISC ETOH Withdrawal Score changes 06/09/24 18:00 06/16/24 17:59 DC Phenylephrine HCl 10 mg/Sodium Chloride 250 ml @ 0 mls/hr PROTOCOL PRN IV PROTOCOL 06/09/24 07:00 07/09/24 06:59 06/09/24 09:27 96 MLS/HR Potassium Chloride 20 meq/ Sodium Chloride 1,010 ml @ 0 mls/hr PROTOCOL IV 06/09/24 10:00 06/11/24 13:29 DC Potassium Chloride/Dextrose/ Sod Cl 1,000 ml @ 0 mls/hr AD IV 06/09/24 10:00 06/11/24 13:29 DC Potassium Chloride 100 ml @ 50 mls/hr AD PRN IV POTASSIUM PROTOCOL 06/09/24 07:00 06/09/24 08:34 DC Potassium Chloride 100 ml @ 50 mls/hr AD PRN IV POTASSIUM PROTOCOL 06/09/24 08:30 07/09/24 08:29 06/19/24 06:31 50 MLS/HR Potassium Chloride 100 ml @ 100 mls/hr AD PRN IV POTASSIUM PROTOCOL 06/09/24 08:30 06/09/24 08:41 DC Potassium Chloride (K-Dur/Klor-Con 20meq) 20 meq AD PRN PO POTASSIUM PROTOCOL 06/09/24 08:30 07/09/24 08:29 Potassium Chloride (KCl 10% Elixir 20meq/15ml) 20 meq AD PRN PO POTASSIUM PROTOCOL 06/09/24 08:30 07/09/24 08:29 06/17/24 08:17 20 MEQ Propofol (DIPRivan 1000MG/ 100ML) 1,000 mg PROTOCOL PRN IV SEDATION 06/14/24 17:30 07/14/24 17:29 Sodium Bicarbonate 150 meq/Dextrose 1,150 ml @ 150 mls/hr Q7H40M IVP 06/09/24 00:30 06/09/24 18:11 DC 06/09/24 01:18 150 MLS/HR Sodium Chloride 250 ml @ 0 mls/hr Q0M IV 06/19/24 05:00 07/19/24 04:59 06/19/24 05:07 0 MLS/HR Sodium Chloride 500 ml @ 0 mls/hr Q0M IV 06/17/24 18:00 06/18/24 15:59 DC 06/17/24 18:26 500 MLS/HR Sodium Chloride 1,000 ml @ 75 mls/hr [id number] IV 06/17/24 18:00 06/18/24 15:59 DC 06/18/24 08:49 75 MLS/HR Sodium Chloride 1,000 ml @ 200 mls/hr PROTOCOL IV 06/09/24 10:00 06/11/24 13:29 DC Thiamine HCl (Vitamin B-1) 300 mg DAILY IV 06/09/24 18:00 07/09/24 17:59 06/19/24 08:26 300 MG Vancomycin HCl 250 ml @ 125 mls/hr Q12H IV 06/09/24 22:00 06/10/24 21:50 DC 06/10/24 10:06 125 MLS/HR Vancomycin HCl 250 ml @ 125 mls/hr Q24H IV 06/11/24 22:00 06/12/24 21:39 DC 06/11/24 21:10 125 MLS/HR Vancomycin HCl 250 ml @ 125 mls/hr Q24H IV 06/13/24 22:00 06/18/24 15:59 DC 06/17/24 20:15 125 MLS/HR Vancomycin HCl (Vancomycin Protocol) 1 each AD IV 06/09/24 09:00 06/18/24 15:59 DC Vasopressin 20 units/Sodium Chloride 100 ml @ 0 mls/hr PROTOCOL IV 06/09/24 07:00 07/09/24 06:59 06/09/24 08:20 9 MLS/HR Wound Care/ Dressing Products (Venelex Ointment) 1 APPL TID TP 06/14/24 21:00 07/14/24 20:59 06/19/24 08:27 1 GM DIAGNOSTICS / RADIOLOGY: [ ] ASSESSMENT: Acute respiratory failure POA Septic shock, resolved Alcohol withdrawals Bilateral lower lobe bacterial pneumonia, POA Acute hepatic encephalopathy, resolved POA Combined alcoholic and fatty liver cirrhosis, POA MELD Score 19 points (19.6% estimated three month mortality) NSTEMI type 2, 2/2 supply and demand mismatch POA Acute on chronic Stage I Diastolic Heart Failure w/ EF of 40% POA Elevated troponin R/O ACS POA Elevated D-dimer of 3989, negative for DVT, Well score for PE 3 ( Moderate score) Metabolic acidosis POA Ascites Hepatomegaly Acute blood loss anemia POA Acute upper and lower GI bleed, POA Acute thrombocytopenia POA Acute on chronic diastolic CHF POA Hyperglycemia POA Hypomagnesemia POA Positive for THC POA Active alcohol drinker POA Acute complicated cystitis POA Hypertension POA acute GI bleed POA s/p EGD 06/13/24 non bleeding ulcer PLAN: Remains admitted to the ICU Successfully extubated 06/17. Continue to wean off oxygen Continue CIWA protocol with precedex and valium Wean precedex as able Continue midodrine 15mg TID, wean as able Continue lactulose 20g q24h Continue Cefepime Repeat swallow study tomorrow with speech Continue to follow critical care input and recommendation Limited 2D echo to reassess LVEF per Cardiology. Can consider noninvasive stress testing to evaluate for ischemia when medically stable Continue broad-spectrum IV antibiotics for multifocal pneumoniae per ID recommendations. Disposition: Pending improving in clinical condition, resolution of alcohol withdrawals, repeat swallow study. All questions answered time spent: > 35 min of ICU time JASSI VERMA MD Jun 19, 2024 13:14
--- NOTE | 2024-06-19 14:14 | PN ---
[facility] CARDIOLOGY PROGRESS NOTE Date Patient Seen: Jun 19, 2024 Time of Visit: 14:07 Interval History: This is a 53-year-old white male with a past medical history of hypertension, psoriatic arthritis and CHF" who presented to the ER initially with complaints of persistent nausea and vomiting. He was found to have metabolic derangements including metabolic acidosis, anemia, thrombocytopenia, procalcitonin level of 13 and lactic acid of 2.6, developed respiratory failure requiring intubation in the emergency department on 06/09/2024. Cardiology was consulted when he was noted to have troponins of 441, 600 and 953 and was felt to be a type 2 GA in the setting of his acute illness. He has required vasopressor support which was discontinued over the last 24 hours. Nursing reports he has had a high CIWA score and is currently on Precedex and CIWA protocol. He has undergone an EGD on this admission 06/13/2024 demonstrated non-bleeding ulcers. A 2D echocardiogram on 06/09/2024 demonstrated global hypokinesis, EF of 40% and stage II diastolic dysfunction. This was in the setting of respiratory failure and probable sepsis. A follow-up 2D echocardiogram 06/17/2024 demonstrated an LVEF of 50-55% without regional wall motion abnormalities detected. The patient has made progress and he is communicating well today with improved strength. The patient was hospitalized at [facility] in [place] three or four years ago and per his sister he had cardiac issues at that time. We will request records and review them upon availability. Physical Examination: GENERAL: No acute distress, follows commands. LUNGS: Clear breath sounds bilaterally HEART: Normal S1 and S2 and no audible murmur, gallop or rub. VASC: No pedal edema, pedal pulses are 2+ and has pain to his joints with range of motion SKIN: Multiple tattoos throughout the upper extremities, no acute rashes or lesions NEURO: Awaken oriented to person and place, slow to speak currently on Precedex Laboratory: Hematology Labs: Test 06/19/24 04:18 06/18/24 04:08 Range/Units White Blood Count 16.0 H 4.8-10.8 K/uL Red Blood Count 2.62 L 4.50-6.20 MIL/uL Hemoglobin 9.1 L 14.0-18.0 g/dL Hematocrit 27.2 L 42-54 % Mean Corpuscular Volume 103.8 H 79-99 fL Mean Corpuscular Hemoglobin 34.7 H 27.0-33.0 pg Mean Corpuscular Hemoglobin Concent 33.5 32.0-36.0 g/dL Red Cell Distribution Width 13.7 11.0-15.5 % Platelet Count 197 # 130-400 K/uL Mean Platelet Volume 13.1 H 7.5-10.5 fL Nucleated Red Blood Cells 0.0 0.0-0.19 % Immature Granulocyte % (Auto) 1.1 H 0-1 % Neutrophils (%) (Auto) 86.1 H 40.0-77.0 % Lymphocytes (%) (Auto) 5.5 L 21.0-51.0 % Monocytes (%) (Auto) 6.8 3.0-13.0 % Eosinophils (%) (Auto) 0.2 0.0-8.0 % Basophils (%) (Auto) 0.3 0.0-5.0 % Neutrophils # (Auto) 17.0 H 1.8-7.7 K/uL Lymphocytes # (Auto) 1.1 1.0-4.8 K/uL Monocytes # (Auto) 1.4 H 0.1-1.0 K/uL Eosinophils # (Auto) 0.04 0.00-0.70 K/uL Basophils # (Auto) 0.06 0.00-0.20 K/uL Absolute Immature Granulocyte (auto 0.22 0-1 K/uL Chemistry Labs: Test 06/19/24 11:27 06/19/24 04:18 06/18/24 04:08 Range/Units Whole Blood Glucose 149 H 70-110 MG/DL Sodium Level 147 H 136-145 mmol/L Potassium Level 3.3 L 3.5-5.1 mmol/L Chloride Level 114 H 101-111 mmol/L Carbon Dioxide Level 20 L 21-32 mmol/L Blood Urea Nitrogen 31 H 7-18 mg/dL Creatinine 1.2 0.5-1.3 mg/dL Glomerular Filtration Rate Calc 71 >90 mL/min Random Glucose 138 H 70-105 mg/dL Total Calcium 7.6 L 8.5-10.1 mg/dL Magnesium Level 1.70 L 1.80-2.40 mg/dL Total Bilirubin 4.6 H 0.2-1.0 mg/dL Aspartate Amino Transf (AST/SGOT) 82 H 10-37 U/L Alanine Aminotransferase (ALT/SGPT) 34 12-78 U/L Alkaline Phosphatase 140 H 50-136 U/L Total Protein 5.0 L 6.0-8.3 g/dL Albumin 1.8 L 3.5-5.0 g/dL B-Type Natriuretic Peptide 551 H 0-100 pg/mL Diagnostics / Radiology: Limited follow-up 2D echocardiogram to reassess LV function 06/17/2024: Conclusion LVEF is 50-55%. NO REGIONAL WALL MOTION ABNORMALITIES NOTED IN VIEWS OBTAINED DICTATED BY: ROXI PAYTON MD DATE: 06/18/24 1115 Impression and Plan: Septic shock Acute respiratory failure status post intubation in the ER, extubated 06/17/2024: Community-acquired pneumonia, with bilateral lower lobe infiltrates: -continues to improve Acute on chronic systolic and diastolic congestive heart failure Congestive cardiomyopathy with an LVEF of 40% by 2D echocardiogram 06/09/2024: Follow-up 2D echo 06/17/2024 demonstrated an LVEF of 50-55% with no regional wall motion abnormalities, suggesting depressed EF above was in the setting of sepsis: -follow-up chest x-ray today demonstrates persistent bilateral lower lobe infiltrates and a small right pleural effusion. BNP is trending down -begin furosemide 20 mg IV daily, withdraw in 1-2 days Type [address] segment elevation GA with troponin of 600 rising to 953: -antiplatelet therapy has been avoided given thrombocytopenia with platelet count as low as 51, platelet count has improved to 173 -hypotension precludes beta-thai therapy at this time -no plans for invasive evaluation at this time. 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
[2024-06-19] MEDS: MEROPENEM 1GM 1 GM VIAL IV SCH (14:29)
--- NOTE | 2024-06-19 14:42 | PN ---
INFECTIOUS DISEASE PROGRESS NOTE Date of Service: Jun 19, 2024 SUBJECTIVE: This is a 53 year old male patient who presented to the emergency room for persistent nausea,vomiting and shortness of breath. A chest x-ray done on admission showed bilateral lower lobe infiltrates consistent with pneumonia. Patient went into acute hypoxic respiratory failure while in the ED requiring intubation on 06/09/2024. Patient was extubated on 06/17/2024. An abdominal ultrasound showed ascites. Patient was seen and examined at bedside in the ICU room 206. Patient is awake, alert and oriented. Patient is status post extubation day # 2. Patient is currently on oxygen via aerosol nasal mask at 2 liters/minute. Preliminary tracheal aspirate culture results is growing gram negative rods. Patient has been started on Meropenem IV. At the time of my visit patient was being evaluated by Physical therapy and was able to sit on the edge of the bed with support. Patient has stage II acute pressure ulcer to bilateral gluteus. Patient's sister visiting at bedside. The WBC is still slightly elevated at 16.0 and patient had a low-grade fever of 99.7 earlier this morning. Current temperature however is 98.2. We will continue to monitor patient's care. PHYSICAL EXAM EYES: Anicteric. Pupils equal and reactive. HENT: No oral thrush seen, moist Oral mucosa NECK: Supple, no JVD or thyromegaly. RESPIRATORY: Good air entry. No rales, no rhonchi. Oxygen via nasal cannula. CARDIOVASCULAR: S1, S2 regular. No murmur heard. ABDOMEN: Full, present bowel sounds. CENTRAL NERVOUS SYSTEM: Awake, alert, oriented x 3. SKIN: No rashes, no swelling. Bilateral gluteus Stage II pressure decubitus ulcer. LYMPHATICS: No peripheral lymphadenopathy MUSCULOSKELETAL: No joint swelling, erythema or tenderness. EXTREMITIES: No cyanosis or clubbing BACK: No deformity, no pressure ulcer. GENITOURINARY: No dysuria or hematuria. Vital Sign (Last 12 Hours) 06/19/24 06/19/24 06/19/24 06/19/24 02:27 02:30 03:00 04:00 Temp 99.7 Pulse 126 125 119 122 Resp 34 22 24 24 B/P (MAP) 114/71 (85) 93/59 (70) 92/58 (69) Pulse Ox 98 97 98 2/9/06/19/24 06/19/24 06/19/24 04:16 04:30 04:46 05:00 Pulse 132 135 132 131 Resp 17 22 27 22 B/P (MAP) 93/59 (70) 99/57 (71) 99/57 (71) 99/57 (71) Pulse Ox 99 96 98 96 06/19/24 06/19/24 06/19/24 06/19/24 05:06 05:16 06:21 07:00 Temp 99.7 Pulse 137 129 134 Resp 24 32 35 B/P (MAP) 128/74 (92) 124/87 (99) Pulse Ox 97 98 06/19/24 06/19/24 06/19/24 06/19/24 07:15 07:16 08:00 08:16 Temp 98.8 98.2 Pulse 136 135 127 Resp 18 38 37 B/P (MAP) 122/77 (92) 111/57 (75) 107/81 (90) Pulse Ox 98 94 100 06/19/24 06/19/24 06/19/24 06/19/24 09:00 09:00 09:16 10:00 Pulse 98 90 93 Resp 24 32 33 B/P (MAP) 115/68 (84) 123/58 (79) 125/45 (71) Pulse Ox 96 96 100 100 O2 Delivery Nasal Cannula* Aerosol Mask+ O2 Flow Rate 2 FiO2 28 06/19/24 06/19/24 06/19/24 06/19/24 10:16 11:00 11:08 11:16 Pulse 92 83 83 83 Resp 32 34 23 31 B/P (MAP) 91/64 (73) 105/44 (64) 119/70 (86) Pulse Ox 100 100 92 06/19/24 11:46 Temp 99.1 Intake & Output (last 24hrs) 06/18/24 06/18/24 06/19/24 15:00 23:00 07:00 Intake Total 939.0 ml 508.0 ml 463.0 ml Output Total 800 ml 850 ml Balance 939.0 ml -292.0 ml -387.0 ml LABS: Laboratory: Test 06/19/24 11:27 06/19/24 04:18 06/18/24 04:08 06/18/24 03:38 Range/Units Whole Blood Glucose 149 H 70-110 MG/DL White Blood Count 16.0 H 4.8-10.8 K/uL Red Blood Count 2.62 L 4.50-6.20 MIL/uL Hemoglobin 9.1 L 14.0-18.0 g/dL Hematocrit 27.2 L 42-54 % Mean Corpuscular Volume 103.8 H 79-99 fL Mean Corpuscular Hemoglobin 34.7 H 27.0-33.0 pg Mean Corpuscular Hemoglobin Concent 33.5 32.0-36.0 g/dL Red Cell Distribution Width 13.7 11.0-15.5 % Platelet Count 197 # 130-400 K/uL Mean Platelet Volume 13.1 H 7.5-10.5 fL Nucleated Red Blood Cells 0.0 0.0-0.19 % Sodium Level 147 H 136-145 mmol/L Potassium Level 3.3 L 3.5-5.1 mmol/L Chloride Level 114 H 101-111 mmol/L Carbon Dioxide Level 20 L 21-32 mmol/L Blood Urea Nitrogen 31 H 7-18 mg/dL Creatinine 1.2 0.5-1.3 mg/dL Glomerular Filtration Rate Calc 71 >90 mL/min Random Glucose 138 H 70-105 mg/dL Total Calcium 7.6 L 8.5-10.1 mg/dL Magnesium Level 1.70 L 1.80-2.40 mg/dL Total Bilirubin 4.6 H 0.2-1.0 mg/dL Aspartate Amino Transf (AST/SGOT) 82 H 10-37 U/L Alanine Aminotransferase (ALT/SGPT) 34 12-78 U/L Alkaline Phosphatase 140 H 50-136 U/L Total Protein 5.0 L 6.0-8.3 g/dL Albumin 1.8 L 3.5-5.0 g/dL Immature Granulocyte % (Auto) 1.1 H 0-1 % Neutrophils (%) (Auto) 86.1 H 40.0-77.0 % Lymphocytes (%) (Auto) 5.5 L 21.0-51.0 % Monocytes (%) (Auto) 6.8 3.0-13.0 % Eosinophils (%) (Auto) 0.2 0.0-8.0 % Basophils (%) (Auto) 0.3 0.0-5.0 % Neutrophils # (Auto) 17.0 H 1.8-7.7 K/uL Lymphocytes # (Auto) 1.1 1.0-4.8 K/uL Monocytes # (Auto) 1.4 H 0.1-1.0 K/uL Eosinophils # (Auto) 0.04 0.00-0.70 K/uL Basophils # (Auto) 0.06 0.00-0.20 K/uL Absolute Immature Granulocyte (auto 0.22 0-1 K/uL B-Type Natriuretic Peptide 551 H 0-100 pg/mL Blood Gas Specimen Type Arterial Arterial Blood pH 7.437 7.350-7.450 Arterial Blood Partial Pressure CO2 23 L 35-48 mmHg Arterial Blood Partial Pressure O2 72.6 L 83.0-108.0 mmHg Arterial Blood HCO3 15.3 L 21.0-28.0 mmol/L Arterial Blood Oxygen Saturation 95.4 94.0-98.0 % Arterial Blood Base Excess -6.7 L -2.0-3.0 mmol/L Blood Gas Temperature 37.0 35.5-37.0 CELSIUS Blood Gas Flow-by 2.00 0.00-15.00 L/min Blood Gas Vent Mode NC ROOM AIR FiO2 28.0 % Blood Gas Specimen Comment RR RN CAROL ASSESSMENT: Acute hypoxic respiratory failure requiring intubation on 06/09/2024, s/p extubated on 06/17/2024. Multifocal pneumonia. Leukocytosis. Bilateral gluteus Stage II pressure decubitus ulcers. Thrombocytopenia Liver cirrhosis, ascites. Substance abuse, positive for marijuana POA. Debility. PLAN: Patient has been started on Meropenem. Continue critical care support. Continue CIWA protocol. Continue GI prophylaxis. continue oxygen support. Physical therapy has evaluated patient. We will follow up on the final culture results. This case was reviewed and discussed with my supervising physician and the above assessment and plan was formulated and agreed upon. ATTESTATION BY PHYSICIAN I have seen and examined the patient. I reviewed the documentation, medical decision making, and treatment plan as noted by the mid-level provider above. I agree with the findings and plan of care. BABAK MCGUIRE MD, MIRTA L MANAGER [employer] Jun 19, 2024 14:42
[2024-06-20] VITALS (64 sets, daily range): BP systolic 69–134; BP diastolic 29–90; PULSE 60–146; RESP 15–32; TEMP 97.6–98.5; O2SAT 95–100
[2024-06-20 03:55] LABS: BASOPHILS # (AUTO) 0.08 K/uL (0.00-0.20); BASOPHILS % (AUTO) 0.7 % (0.0-5.0); EOSINOPHILS # (AUTO) 0.13 K/uL (0.00-0.70); EOSINOPHILS % (AUTO) 1.1 % (0.0-8.0); HEMATOCRIT 31.6 % (42-54); LYMPHOCYTES # (AUTO) 1.2 K/uL (1.0-4.8); MEAN CORPUSCULAR HEMOGLOBIN 34.1 pg (27.0-33.0); MEAN CORPUSCULAR HGB CONC 32.3 g/dL (32.0-36.0); MEAN CORPUSCULAR VOLUME 105.7 fL (79-99); NEUTROPHILS # (AUTO) 9.4 K/uL (1.8-7.7); NEUTROPHILS % (AUTO) 79.4 % (40.0-77.0); PLATELET COUNT (AUTO) 177 K/uL (130-400); RED BLOOD CELL COUNT(AUTO) 2.99 MIL/uL (4.50-6.20); RED CELL DISTRIBUTION WIDTH 14.5 % (11.0-15.5); WHITE BLOOD COUNT (AUTO) 11.8 K/uL (4.8-10.8)
[2024-06-20 04:31] LABS: CREATININE 1.1 mg/dL (0.5-1.3); POTASSIUM 3.9 mmol/L (3.5-5.1)
--- NOTE | 2024-06-20 09:38 | PN ---
Critical Care Progress Note Patient offers no symptomatic complaints today. He and his sister advise he had a hospitalization in [facility] about three years ago and records have been requested from there. The patient is here with sepsis and alcohol withdrawal and had a positive troponin but his 2nd echocardiogram also shows normal ventricular function with no wall motion abnormality and it does not appear the patient has suffered an infarct. Chest is clear with no rales or rhonchi but chest x-ray shows infiltrates in the lower lobes. S1 and S2 are normal and rhythm is regular. Patient is pale and appears frail. Abdomen is not distended, no edema. Impression and plan: Stable with respect to cardiac status at this time. We will follow up on the records that have been requested from elsewhere. No change of cardiac treatment now. 30 minutes to review the record, discussed with the nurse, evaluate the patient, discussed with the patient and his sister, coordinate care and document results Vitals/Labs Vital Signs Date Time Temp Pulse Resp B/P (MAP) Pulse Ox O2 Delivery O2 Flow Rate FiO2 06/20/24 07:00 68 23 129/86 (100) 97 06/20/24 04:00 Room Air* 0 21 06/20/24 03:30 97.5 Laboratory Tests 06/20/24 03:43 Medications Current Medications Furosemide 40 mg ONCE ONCE IV Last administered on 06/09/24at 00:55; Start 06/09/24 at 00:30; Stop 06/09/24 at 00:31; Status DC Magnesium Sulfate 50 ml @ As Directed STK-MED ONCE IV; Start 06/09/24 at 00:24; Stop 06/09/24 at 00:29; Status DC Diazepam 5 mg ONCE ONCE IVP Last administered on 06/09/24at 00:58; Start 06/09/24 at 00:30; Stop 06/09/24 at 00:36; Status DC Sodium Bicarbonate 150 meq/Dextrose 1,150 ml @ 150 mls/hr [id number] IVP Last administered on 06/09/24at 01:18; Start 06/09/24 at 00:30; Stop 06/09/24 at 18:11; Status DC Sodium Bicarbonate 50 meq ONCE ONCE IV Last administered on 06/09/24at 00:56; Start 06/09/24 at 00:30; Stop 06/09/24 at 00:36; Status DC Sodium Bicarbonate 0 ml @ As Directed STK-MED ONCE .ROUTE; Start 06/09/24 at 00:35; Stop 06/09/24 at 00:36; Status DC Diazepam 10 mg STK-MED ONCE .ROUTE; Start 06/09/24 at 00:36; Stop 06/09/24 at 00:37; Status DC Magnesium Sulfate 50 ml @ 0 mls/hr PROTOCOL PRN IV Last administered on 06/09/24at 01:03; Start 06/09/24 at 01:00; Stop 06/09/24 at 06:50; Status DC Heparin Sodium/ Dextrose 250 ml @ 0 mls/hr PROTOCOL IV Last administered on 06/09/24at 03:31; Start 06/09/24 at 03:30; Stop 06/09/24 at 09:45; Status DC Heparin Sodium (Porcine) 5,000 unit ONCE ONCE IV Last administered on 06/09/24at 03:27; Start 06/09/24 at 03:30; Stop 06/09/24 at 03:31; Status DC Pantoprazole Sodium 80 mg/ Sodium Chloride 100 ml @ 10 mls/hr Q10H IVP Last administered on 06/11/24at 08:04; Start 06/09/24 at 04:00; Stop 06/11/24 at 13:24; Status DC Pantoprazole Sodium 40 mg ONCE ONCE IVP Last administered on 06/09/24at 04:26; Start 06/09/24 at 04:00; Stop 06/09/24 at 04:01; Status DC Octreotide Acetate 500 mcg/ Sodium Chloride 100 ml @ 0 mls/hr PROTOCOL IV Last administered on 06/09/24at 05:50; Start 06/09/24 at 04:30; Stop 06/09/24 at 08:13; Status DC Octreotide Acetate 50 mcg ONCE ONCE IV Last administered on 06/09/24at 04:26; Start 06/09/24 at 04:30; Stop 06/09/24 at 04:31; Status DC Sodium Chloride 1,000 ml @ 500 mls/hr Q2H ONCE IV Last administered on 06/09/24at 05:03; Start 06/09/24 at 05:00; Stop 06/09/24 at 06:59; Status DC Sodium Chloride 1,000 ml @ As Directed STK-MED ONCE IV; Start 06/09/24 at 05:00; Stop 06/09/24 at 05:00; Status DC Fentanyl Citrate 100 ml @ As Directed STK-MED ONCE IV; Start 06/09/24 at 06:05; Stop 06/09/24 at 06:05; Status DC Ketamine HCl 50 mg STK-MED ONCE .ROUTE; Start 06/09/24 at 06:06; Stop 06/09/24 at 06:06; Status DC Midazolam HCl 100 ml ONCE ONCE IV Last administered on 06/09/24at 08:17; Start 06/09/24 at 06:30; Stop 06/09/24 at 06:59; Status DC Fentanyl Citrate 100 ml @ 2.5 mls/hr PROTOCOL IV Last administered on 06/11/24at 21:06; Start 06/09/24 at 06:30; Stop 06/12/24 at 13:28; Status DC Ketamine HCl 100 mg ONCE ONCE IM; Start 06/09/24 at 06:30; Stop 06/09/24 at 06:31; Status DC Pharmacy Profile Note 1 each ONCE ONCE MISC; Start 06/09/24 at 06:30; Stop 06/09/24 at 07:00; Status DC Rocuronium Helmet[place] 50 mg STK-MED ONCE .ROUTE; Start 06/09/24 at 06:06; Stop 06/09/24 at 06:06; Status DC Norepinephrine 250 ml @ As Directed STK-MED ONCE IV; Start 06/09/24 at 06:16; Stop 06/09/24 at 06:16; Status DC Levofloxacin/ Dextrose 750 mg Q24H IV; Start 06/09/24 at 06:30; Stop 06/09/24 at 08:29; Status DC Potassium Chloride 100 ml @ 50 mls/hr AD PRN IV; Start 06/09/24 at 07:00; Stop 06/09/24 at 08:34; Status DC Magnesium Sulfate 50 ml @ 0 mls/hr PROTOCOL PRN IV; Start 06/09/24 at 07:00; Stop 06/09/24 at 08:35; Status DC Phenylephrine HCl 10 mg/Sodium Chloride 250 ml @ 0 mls/hr PROTOCOL PRN IV Last administered on 06/09/24at 09:27; Start 06/09/24 at 07:00; Stop 07/09/24 at 06:59 Vasopressin 20 units STK-MED ONCE .ROUTE; Start 06/09/24 at 06:42; Stop 06/09/24 at 06:42; Status DC Vasopressin 20 units/Sodium Chloride 100 ml @ 0 mls/hr PROTOCOL IV Last administered on 06/09/24at 08:20; Start 06/09/24 at 07:00; Stop 07/09/24 at 06:59 Furosemide 20 mg Q12H IV; Start 06/09/24 at 12:00; Stop 06/09/24 at 11:26; Status DC Octreotide Acetate 1250 mcg/ Sodium Chloride 250 ml @ 0 mls/hr PROTOCOL IV Last administered on 06/11/24at 13:17; Start 06/09/24 at 08:30; Stop 06/13/24 at 13:43; Status DC Potassium Chloride 100 ml @ 100 mls/hr AD PRN IV; Start 06/09/24 at 08:30; Stop 06/09/24 at 08:41; Status DC Potassium Chloride 20 meq AD PRN PO Last administered on 06/17/24at 08:17; Start 06/09/24 at 08:30; Stop 07/09/24 at 08:29 Potassium Chloride 20 meq AD PRN PO; Start 06/09/24 at 08:30; Stop 07/09/24 at 08:29 Potassium Chloride 100 ml @ 50 mls/hr AD PRN IV Last administered on 06/19/24at 06:31; Start 06/09/24 at 08:30; Stop 07/09/24 at 08:29 Magnesium Sulfate 50 ml @ 0 mls/hr PROTOCOL PRN IV; Start 06/09/24 at 08:30; Stop 06/09/24 at 09:46; Status DC Vancomycin HCl 1 each AD IV; Start 06/09/24 at 09:00; Stop 06/18/24 at 15:59; Status DC Cefepime HCl 2 gm Q8H IVPB Last administered on 06/10/24at 16:44; Start 06/09/24 at 09:00; Stop 06/10/24 at 19:49; Status DC Metronidazole/ Sodium Chloride 100 ml @ 100 mls/hr Q8H6 IVPB Last administered on 06/19/24at 06:04; Start 06/09/24 at 14:00; Stop 06/19/24 at 13:59; Status DC Chlorhexidine Gluconate 15 ml Q8H MM Last administered on 06/20/24at 08:16; Start 06/09/24 at 09:00; Stop 06/23/24 at 08:59 Artificial Tears 1 DROP OR AD Q8H OU Last administered on 06/20/24at 08:18; Start 06/09/24 at 09:00; Stop 07/09/24 at 08:59 Vancomycin HCl 250 ml @ 125 mls/hr ONCE ONCE IV Last administered on 06/09/24at 11:19; Start 06/09/24 at 09:00; Stop 06/09/24 at 10:59; Status DC Vancomycin HCl 250 ml @ 125 mls/hr Q12H IV Last administered on 06/10/24at 10:06; Start 06/09/24 at 22:00; Stop 06/10/24 at 21:50; Status DC Sodium Bicarbonate 50 ml @ As Directed STK-MED ONCE .ROUTE; Start 06/09/24 at 09:40; Stop 06/09/24 at 09:40; Status DC Sodium Bicarbonate 100 meq ONCE ONCE IV; Start 06/09/24 at 10:00; Stop 06/09/24 at 09:45; Status DC Potassium Chloride 20 meq ONCE ONCE PO; Start 06/09/24 at 10:00; Stop 06/09/24 at 10:01; Status DC Sodium Chloride 1,000 ml @ 200 mls/hr PROTOCOL IV; Start 06/09/24 at 10:00; Stop 06/11/24 at 13:29; Status DC Potassium Chloride/Dextrose/ Sod Cl 1,000 ml @ 0 mls/hr AD IV; Start 06/09/24 at 10:00; Stop 06/11/24 at 13:29; Status DC Potassium Chloride 20 meq/ Sodium Chloride 1,010 ml @ 0 mls/hr PROTOCOL IV; Start 06/09/24 at 10:00; Stop 06/11/24 at 13:29; Status DC Magnesium Sulfate 50 ml @ 0 mls/hr PROTOCOL IV Last administered on 06/11/24at 07:13; Start 06/09/24 at 10:00; Stop 06/11/24 at 13:29; Status DC Insulin Human Regular 100 unit/ Sodium Chloride 101 ml @ 0 mls/hr PROTOCOL IV Last administered on 06/09/24at 11:41; Start 06/09/24 at 10:00; Stop 06/11/24 at 13:29; Status DC Dextrose/Sodium Chloride 1,000 ml @ 0 mls/hr AD IV; Start 06/09/24 at 10:00; Stop 06/11/24 at 13:29; Status DC Sodium Bicarbonate 50 meq ONCE ONCE IV Last administered on 06/09/24at 11:20; Start 06/09/24 at 10:00; Stop 06/09/24 at 10:01; Status DC Furosemide 20 mg Q6H6 IV Last administered on 06/12/24at 06:46; Start 06/09/24 at 12:00; Stop 06/12/24 at 07:38; Status DC Norepinephrine 250 ml @ As Directed STK-MED ONCE IV; Start 06/09/24 at 12:03; Stop 06/09/24 at 12:04; Status DC Norepinephrine Bitartrate HIGH ALERT Init... PROTOCOL IV Last administered on 06/13/24at 19:21; Start 06/09/24 at 12:30; Stop 07/09/24 at 12:29 Pantoprazole Sodium 40 mg STK-MED ONCE .ROUTE; Start 06/09/24 at 12:19; Stop 06/09/24 at 12:19; Status DC Iohexol 75 ml STK-MED ONCE IV; Start 06/09/24 at 13:45; Stop 06/09/24 at 13:49; Status DC Midazolam HCl 100 ml PROTOCOL IV Last administered on 06/11/24at 08:05; Start 06/09/24 at 15:30; Stop 06/12/24 at 10:33; Status DC Lorazepam 2 mg Q4H PRN IVP; Start 06/09/24 at 18:00; Stop 06/16/24 at 17:59; Status DC Lorazepam 4 mg Q2H PRN IVP; Start 06/09/24 at 18:00; Stop 06/16/24 at 17:59; Status DC Ondansetron HCl 4 mg Q4H PRN IV; Start 06/09/24 at 18:00; Stop 07/09/24 at 17:59 Acetaminophen 500 mg Q6H PRN PO Last administered on 06/14/24at 17:35; Start 06/09/24 at 18:00; Stop 07/09/24 at 17:59 Multivitamins Therapeutic 1 tab DAILY PO Last administered on 06/20/24at 08:17; Start 06/10/24 at 09:00; Stop 07/10/24 at 08:59 Pharmacy Profile Note 1 each PROTOCOL PRN [facility]; Start 06/09/24 at 18:00; Stop 06/16/24 at 17:59; Status DC Thiamine HCl 300 mg DAILY IV Last administered on 06/20/24at 08:17; Start 06/09/24 at 18:00; Stop 07/09/24 at 17:59 Folic Acid 1 mg DAILY IV Last administered on 06/20/24at 08:16; Start 06/09/24 at 18:00; Stop 07/09/24 at 17:59 Lactated Ringer's 500 ml BOLUS ONCE IV; Start 06/10/24 at 03:30; Stop 06/10/24 at 03:50; Status DC Lactulose 200 gm ONCE ONCE WA Last administered on 06/10/24at 11:11; Start 06/10/24 at 10:00; Stop 06/10/24 at 10:01; Status DC Cefepime HCl 2 gm Q12H IVPB Last administered on 06/18/24at 05:05; Start 06/11/24 at 05:00; Stop 06/18/24 at 15:59; Status DC Vancomycin HCl 250 ml @ 125 mls/hr Q24H IV Last administered on 06/11/24at 21:10; Start 06/11/24 at 22:00; Stop 06/12/24 at 21:39; Status DC Insulin Human Regular INSULIN SLIDING SCAL... Q6H6 SQ Last administered on 06/13/24at 06:45; Start 06/11/24 at 12:00; Stop 06/13/24 at 11:22; Status DC Midodrine 10 mg TID PO Last administered on 06/14/24at 07:47; Start 06/11/24 at 14:00; Stop 06/14/24 at 10:06; Status DC Lactulose 20 gm DAILY PO Last administered on 06/20/24at 08:16; Start 06/12/24 at 09:00; Stop 07/12/24 at 08:59 Pantoprazole Sodium 40 mg BID IVP Last administered on 06/20/24 08:17; Start 06/11/24 at 21:00; Stop 07/11/24 at 20:59 Magnesium Sulfate 50 ml @ 0 mls/hr PROTOCOL PRN IV Last administered on 06/19/24at 06:32; Start 06/11/24 at 15:00; Stop 07/11/24 at 14:59 Dexmedetomidine/ Sodium Chloride 400 mcg PROTOCOL IV Last administered on 06/19/24 21:01; Start 06/11/24 at 20:30; Stop 07/11/24 at 20:29 Furosemide 40 mg Q12H IV Last administered on 06/12/24 08:16; Start 06/12/24 at 08:00; Stop 06/12/24 at 14:58; Status DC Albumin Human 100 ml @ 50 mls/hr AD IV Last administered on 06/12/24 13:30; Start 06/12/24 at 11:00; Stop 06/14/24 at 10:59; Status DC Furosemide 20 mg DAILY IV Last administered on 06/13/24at 07:59; Start 06/13/24 at 09:00; Stop 06/13/24 at 09:20; Status DC Vancomycin HCl 250 ml @ 125 mls/hr Q24H IV Last administered on 06/17/24 20:15; Start 06/13/24 at 22:00; Stop 06/18/24 at 15:59; Status DC Lactated Ringer's 1,000 ml @ 50 mls/hr Q20H IV Last administered on 06/13/24at 11:18; Start 06/13/24 at 09:30; Stop 06/13/24 at 14:44; Status DC Insulin Human Regular INSULIN SLIDING SCAL... Q6H6 SQ Last administered on 06/17/24at 00:51; Start 06/13/24 at 12:00; Stop 07/13/24 at 11:59 Fentanyl Citrate 100 mcg STK-MED ONCE .ROUTE; Start 06/13/24 at 12:57; Stop 06/13/24 at 12:59; Status DC Midazolam HCl 2 mg STK-MED ONCE .ROUTE; Start 06/13/24 at 12:57; Stop 06/13/24 at 12:59; Status DC Midazolam HCl 2 mg ONCE ONCE IVP Last administered on 06/13/24at 15:01; Start 06/13/24 at 14:00; Stop 06/13/24 at 14:01; Status DC Fentanyl Citrate 100 mcg ONCE ONCE IVP Last administered on 06/13/24 15:01; Start 06/13/24 at 14:00; Stop 06/13/24 at 14:01; Status DC Dexmedetomidine/ Sodium Chloride 400 mcg STK-MED ONCE IV; Start 06/13/24 at 22:43; Stop 06/13/24 at 22:43; Status DC Midodrine 15 mg TID PO Last administered on 06/20/24at 08:18; Start 06/14/24 at 14:00; Stop 07/14/24 at 13:59 Ipratropium Helmetta 0.5 MG [id number] [id number] Last administered on 06/19/24at 06:21; Start 06/14/24 at 14:00; Stop 06/19/24 at 09:03; Status DC Midodrine 5 mg ONCE ONCE PO Last administered on 06/14/24 10:42; Start 06/14/24 at 11:00; Stop 06/14/24 at 11:01; Status DC Wound Care/ Dressing Products 1 APPL TID TP Last administered on 06/20/24 08:18; Start 06/14/24 at 21:00; Stop 07/14/24 at 20:59 Propofol 100 ml @ As Directed STK-MED ONCE IV Last administered on 06/14/24at 17:37; Start 06/14/24 at 17:10; Stop 06/14/24 at 17:10; Status DC Propofol 1,000 mg PROTOCOL PRN IV; Start 06/14/24 at 17:30; Stop 07/14/24 at 17:29 Lactated Ringer's 500 ml BOLUS IV Last administered on 06/15/24at 10:04; Start 06/15/24 at 10:00; Stop 06/15/24 at 12:31; Status DC Lactated Ringer's 1,000 ml @ 75 mls/hr [id number] IV Last administered on 06/17/24at 03:57; Start 06/15/24 at 11:00; Stop 06/17/24 at 09:36; Status DC Sodium Chloride 4 ml STK-MED ONCE IH Last administered on 06/17/24at 02:49; Start 06/16/24 at 22:49; Stop 06/16/24 at 22:49; Status DC Albumin Human 250 ml @ 0 mls/hr AD IV Last administered on 06/17/24at 10:54; Start 06/17/24 at 11:00; Stop 06/19/24 at 10:59; Status DC Diatrizoate Meglum/ Diatrizoate Sod 30 ml STK-MED ONCE .ROUTE; Start 06/17/24 at 16:22; Stop 06/17/24 at 16:22; Status DC Sodium Chloride 1,000 ml @ 75 mls/hr [id number] IV Last administered on 06/18/24at 08:49; Start 06/17/24 at 18:00; Stop 06/18/24 at 15:59; Status DC Sodium Chloride 500 ml @ 0 mls/hr Q0M IV Last administered on 06/17/24at 18:26; Start 06/17/24 at 18:00; Stop 06/18/24 at 15:59; Status DC Morphine Sulfate 2 mg ONCE ONCE IVP; Start 06/17/24 at 21:30; Stop 06/17/24 at 21:31; Status DC Morphine Sulfate 2 mg STK-MED ONCE .ROUTE Last administered on 06/17/24at 21:22; Start 06/17/24 at 21:21; Stop 06/17/24 at 21:21; Status DC Lorazepam 1 mg ONCE ONCE IVP; Start 06/18/24 at 03:30; Stop 06/18/24 at 03:36; Status DC Lorazepam 2 mg STK-MED ONCE .ROUTE Last administered on 06/18/24at 03:30; Start 06/18/24 at 03:23; Stop 06/18/24 at 03:29; Status DC Meropenem 1 gm Q12H IV; Start 06/18/24 at 20:00; Stop 06/18/24 at 16:05; Status DC Meropenem 500 mg ONCE IV; Start 06/18/24 at 16:00; Stop 06/18/24 at 16:01; Status DC Diazepam 10 mg Q12H NG Last administered on 06/20/24at 04:31; Start 06/18/24 at 16:00; Stop 06/22/24 at 15:59 Cefepime HCl 2 gm Q12H IVPB; Start 06/18/24 at 16:30; Stop 06/18/24 at 16:06; Status DC Cefepime HCl 2 gm Q12H IVPB Last administered on 06/19/24at 02:32; Start 06/18/24 at 17:00; Stop 06/19/24 at 14:11; Status DC Furosemide 20 mg DAILY IV Last administered on 06/20/24at 08:17; Start 06/19/24 at 09:00; Stop 07/19/24 at 08:59 Furosemide 20 mg ONCE ONCE IV Last administered on 06/18/24at 16:33; Start 06/18/24 at 16:30; Stop 06/18/24 at 16:31; Status DC Sodium Chloride 250 ml @ 0 mls/hr Q0M IV Last administered on 06/19/24at 05:07; Start 06/19/24 at 05:00; Stop 07/19/24 at 04:59 Acetaminophen 650 mg ONCE ONCE PO Last administered on 06/19/24at 05:06; Start 06/19/24 at 05:00; Stop 06/19/24 at 05:01; Status DC Ipratropium Helmetta 0.5 MG [id number] IH Last administered on 06/20/24at 06:37; Start 06/19/24 at 12:00; Stop 07/14/24 at 13:59 Meropenem 1 gm Q12H IV Last administered on 06/20/24at 04:31; Start 06/19/24 at 14:30; Stop 06/29/24 at 14:29 CHIRAG SÁNCHEZ MD Jun 20, 2024 09:38
--- NOTE | 2024-06-20 11:07 | PN ---
[facility] PROGRESS NOTE Date of Service: Jun 20, 2024 Time of Service: 11:[address] Byrd SUBJECTIVE: [06/12/24 53-year-old male who was admitted due to persistent nausea vomiting, patient also was noted with metabolic acidosis initially was placed on BiPAP support and patient decompensated immediately and was intubated. He is being managed by critical care team. He continues to be intubated on AC mode. Patient is still on pressor support. Continues with IV antibiotics, was started with furosemide 20 mg IV q.12 hours today. We will continue to monitor closely. Patient is still currently intubated. 06/13/24 Pt was seen by BASEBALL CLUB MANAGER and physician during rounding in room 206. Family member/sister at the bedside. Pt is s/p EGD today which showed non bleeding ulcers. CT Head/Brain negative. Per GI we can restart tube feedings. Pt off sedation . We will continue monitoring pt. AM labs 06/14/24 patient was seen by BASEBALL CLUB MANAGER and physician during rounding. Sister at the bedside. CT head brain is negative. Chest x-ray stable exam. Patient was already started on feeding tubes per dietary recommendations. Patient continues to be in ICU. Patient is off pressors hemodynamically stable. Patient is saturating 94% with FiO2 of 45 on vent with a rate of 18, rate on vent of 18 and has been afebrile. Patient not fully awakened and does not follow commands. Off sedation day 2. Labs reviewed. We will follow GI recommendation in regarding possible endoscopic exam. 06/15/24 patient was seen by BASEBALL CLUB MANAGER and physician during rounding in room 206. Sister at the bedside updated records to further plan. WBC today is 15.5 which has a significant increase from the prior day which was 9.6. Blood culture negative x2 for the past four days. Sputum final culture negative. Final urine culture negative. Chest x-ray stable exam. Head CT showed atrophy and chronic small- vessel ischemic changes. Patient was weaned off sedation and became very agitated overnight. The patient remains intubated and mechanically vented. ACVC rate of 12, TV 425, peep of 5 and FiO2 35%. Currently patient is off Levophed and continues to be on midodrine. Patient has a Gomez catheter in place abran color of the urine. We will continue to monitor patient in the meantime. A.m. labs 06/16/24 patient was seen by nurse practitioner physician during rounding in room 206. Family members at the bedside. Patient was evaluated by marketing rotation associate and at this moment patient continues to be hypotensive requiring midodrine therapy. Fractionation Plant Supervisor does not want to place patient on aspirin therapy given the risk of bleeding.His left ventricular systolic function is reduced, however no confirmed diagnosis of coronary artery disease/ischemic cardiomyopathy. When patient is extubated and shows improvement, then they would like to repeat little bit echo to re-evaluate the LVEF. Precedex was resumed and is currently RASS score of negative two.ACVC rate of 12, TV 425, peep of 5 and FiO2 35%. On the monitor, the patient is hypotensive systolic in the 80s. The patient remains with Gomez catheter in place abran color urine. We will continue to monitor patient in the meantime. A.m. labs 06/17/24 patient was seen by nurse practitioner and physician during rounding. Patient is awake and follows commands. Patient continues to be on CPAP at this moment. No pressors no Precedex. We are waiting for ICU team for possible extubation today. We will follow up. A.m. labs 06/18 patient is seen and examined at bedside, case discussed with the RN, patient is successfully extubated yesterday, was mildly restless, started on Precedex. During my visit he is awake, alert oriented x3, following commands. He is on supplemental oxygen via nasal cannula at 2 L saturating 99%. Hemodynamically stable. Patient evaluated by marketing rotation associate, patient admitted with a acute on chronic diastolic CHF with a LVEF 40%. Recommended to repeat limited echo to re-evaluate LVEF. Pending patient's recovery from acute illness can consider noninvasive cardiac stress testing to evaluate for ischemia. 06/19 patient seen at bedside, no acute events overnight. Patient continues with alcohol withdrawals last CIWA score of 12, continue with Precedex and alcohol withdrawal protocol. WBC increased from 13.3 up to 16.0, hemoglobin improved from 8.8 up to 9.1, sodium increased from 144 up to 147, potassium decreased from 3.6 down to 3.3, remainder of his labs are relatively unremarkable. Patient failed a swallow study several days ago, we will have speech reassess him again tomorrow. If he fails he may need placement of PEG tube. 06/20/24 patient was seen by nurse practitioner and physician during rounding in room 206. Family members/sister at the bedside. Patient continues to be on Precedex due to still being alcohol withdrawal. WBC decreased today to 11.8 from 16. Potassium 3.9. Creatinine 1.1 BUN 33 GFR 79. Patient already work with the physical therapy and they were able to transfer patient to the chair. Patient has failed speech swallow test. Today patient is pending barium swallowing test. If patient will fell patient may need PEG tube placement. GI on case. We consulted case management for possible inpatient rehab disposition. We will continue to monitor patient in the meantime. A.m. labs REVIEW OF SYSTEMS 12 point review of systems negative unless noted in HPI PHYSICAL EXAM GENERAL APPEARANCE: The patient is awake, alert, and oriented, in no acute cardiopulmonary distress. NEUROLOGICAL: Cranial nerves II-XII grossly intact. Motor is 5/5 in bilateral upper and lower extremities proximal to distal. No sensory deficits. HEENT: Face is symmetric. Pupils are equal and reactive. Extraocular movements are intact. NECK: Supple. No JVD. No thyromegaly. No submental, submandibular, pre- /postauricular, occipital or supraclavicular lymphadenopathy. CHEST: Normal chest expansion. No Telemetry. LUNGS: Decreased bilateral breath sounds on the lower bases per auscultation CARDIOVASCULAR: Regular. S1 and S2 normal. No appreciable rubs, murmurs or gallops. ABDOMEN: Soft, nontender, and nondistended. There is no rebound, voluntary guarding, or rigidity. : Deferred. Gomez. EXTREMITIES: Non-edematous and not cyanotic. No clubbing. Good capillary refill. SKIN: No skin breakdown. Vital Signs (last 8hr) Date Time Temp Pulse Resp B/P (MAP) Pulse Ox O2 Delivery O2 Flow Rate FiO2 06/20/24 10:00 93 25 102/75 (84) 96 21 06/20/24 09:16 103 22 100/74 (83) 95 21 06/20/24 09:00 94 28 111/66 (81) 94 21 06/20/24 08:20 98 22 N/Cannula Low lpm 2.0 28 06/20/24 08:16 80 26 102/68 (79) 96 21 06/20/24 08:00 72 21 115/80 (92) 98 21 06/20/24 07:16 114 19 112/76 (88) 97 21 06/20/24 07:00 68 23 129/86 (100) 97 06/20/24 06:37 70 20 06/20/24 06:30 68 21 122/84 (97) 97 06/20/24 06:00 66 23 112/71 (85) 97 06/20/24 05:30 60 24 108/64 (79) 98 06/20/24 05:00 60 19 115/70 (85) 98 06/20/24 04:30 61 19 120/73 (89) 98 06/20/24 04:00 61 19 120/73 (89) 98 06/20/24 04:00 97 Room Air* 0 21 06/20/24 03:30 97.5 63 22 110/69 (83) 98 LABS: Laboratory: Test 06/20/24 06:12 06/20/24 03:43 06/20/24 00:34 06/19/24 04:18 Range/Units Ammonia < 10 L 11-32 umol/L White Blood Count 11.8 #H 4.8-10.8 K/uL Red Blood Count 2.99 L 4.50-6.20 MIL/uL Hemoglobin 10.2 L 14.0-18.0 g/dL Hematocrit 31.6 L 42-54 % Mean Corpuscular Volume 105.7 H 79-99 fL Mean Corpuscular Hemoglobin 34.1 H 27.0-33.0 pg Mean Corpuscular Hemoglobin Concent 32.3 32.0-36.0 g/dL Red Cell Distribution Width 14.5 11.0-15.5 % Platelet Count 177 130-400 K/uL Mean Platelet Volume 13.2 H 7.5-10.5 fL Immature Granulocyte % (Auto) 0.8 0-1 % Neutrophils (%) (Auto) 79.4 H 40.0-77.0 % Lymphocytes (%) (Auto) 10.0 L 21.0-51.0 % Monocytes (%) (Auto) 8.0 3.0-13.0 % Eosinophils (%) (Auto) 1.1 0.0-8.0 % Basophils (%) (Auto) 0.7 0.0-5.0 % Neutrophils # (Auto) 9.4 H 1.8-7.7 K/uL Lymphocytes # (Auto) 1.2 1.0-4.8 K/uL Monocytes # (Auto) 1.0 0.1-1.0 K/uL Eosinophils # (Auto) 0.13 0.00-0.70 K/uL Basophils # (Auto) 0.08 0.00-0.20 K/uL Absolute Immature Granulocyte (auto 0.10 0-1 K/uL Nucleated Red Blood Cells 0.0 0.0-0.19 % Sodium Level 149 H 136-145 mmol/L Potassium Level 3.9 3.5-5.1 mmol/L Chloride Level 117 H 101-111 mmol/L Carbon Dioxide Level 21 21-32 mmol/L Blood Urea Nitrogen 33 H 7-18 mg/dL Creatinine 1.1 0.5-1.3 mg/dL Glomerular Filtration Rate Calc 79 >90 mL/min Random Glucose 145 H 70-105 mg/dL Total Calcium 8.1 L 8.5-10.1 mg/dL Whole Blood Glucose 154 H 70-110 MG/DL Magnesium Level 1.70 L 1.80-2.40 mg/dL Total Bilirubin 4.6 H 0.2-1.0 mg/dL Aspartate Amino Transf (AST/SGOT) 82 H 10-37 U/L Alanine Aminotransferase (ALT/SGPT) 34 12-78 U/L Alkaline Phosphatase 140 H 50-136 U/L Total Protein 5.0 L 6.0-8.3 g/dL Albumin 1.8 L 3.5-5.0 g/dL Current Medications Medications (Trade) Dose Ordered Sig/Quan Route PRN Reason Start Time Stop Time Status Last Admin Dose Admin Acetaminophen (TYLenol 500MG TAB) 500 mg Q6H PRN PO TEMP < 101.1 AND/OR HEADACHE 06/09/24 18:00 07/09/24 17:59 06/14/24 17:35 500 MG Albumin Human 100 ml @ 50 mls/hr AD IV 06/12/24 11:00 06/14/24 10:59 DC 06/12/24 13:30 50 MLS/HR Albumin Human 250 ml @ 0 mls/hr AD IV 06/17/24 11:00 06/19/24 10:59 DC 06/17/24 10:54 250 MLS/HR Artificial Tears (Artificial Tears) 1 DROP OR AD Q8H OU 06/09/24 09:00 3/1/25 08:59 06/20/24 08:18 1 DROP Cefepime HCl (MAXipime 2 gm vial) 2 gm Q12H IVPB 06/11/24 05:00 06/18/24 15:59 DC 06/18/24 05:05 2 GM Cefepime HCl (MAXipime 2 gm vial) 2 gm Q12H IVPB 06/18/24 16:30 06/18/24 16:06 DC Cefepime HCl (MAXipime 2 gm vial) 2 gm Q12H IVPB 06/18/24 17:00 06/19/24 14:11 DC 06/19/24 02:32 2 GM Cefepime HCl (MAXipime 2 gm vial) 2 gm Q8H IVPB 06/09/24 09:00 06/10/24 19:49 DC 06/10/24 16:44 2 GM Chlorhexidine Gluconate (Peridex) 15 ml Q8H MM 06/09/24 09:00 06/23/24 08:59 06/20/24 08:16 15 ML Dexmedetomidine/ Sodium Chloride (PRECEdex 400MCG/ 100ML-NS) 400 mcg PROTOCOL IV 06/11/24 20:30 07/11/24 20:29 06/19/24 21:01 400 MCG Dextrose/Sodium Chloride 1,000 ml @ 0 mls/hr AD IV 06/09/24 10:00 06/11/24 13:29 DC Diazepam (VALium 5 mg TAB) 10 mg Q12H NG 06/18/24 16:00 06/22/24 15:59 06/20/24 04:31 10 MG Fentanyl Citrate 100 ml @ 2.5 mls/hr PROTOCOL IV 06/09/24 06:30 06/12/24 13:28 DC 06/11/24 21:06 2.5 MLS/HR Folic Acid (FolVITE 5 MG/ML VIAL) 1 mg DAILY IV 06/09/24 18:00 07/09/24 17:59 06/20/24 08:16 1 MG Furosemide (LASix 20MG VIAL) 20 mg DAILY IV 06/13/24 09:00 06/13/24 09:20 DC 06/13/24 07:59 20 MG Furosemide (LASix 20MG VIAL) 20 mg DAILY IV 06/19/24 09:00 07/19/24 08:59 06/20/24 08:17 20 MG Furosemide (LASix 20MG VIAL) 20 mg Q12H IV 06/09/24 12:00 06/09/24 11:26 DC Furosemide (LASix 20MG VIAL) 20 mg Q6H6 IV 06/09/24 12:00 06/12/24 07:38 DC 06/12/24 06:46 20 MG Furosemide (LASix 20MG VIAL) 40 mg Q12H IV 06/12/24 08:00 06/12/24 14:58 DC 06/12/24 08:16 40 MG Heparin Sodium/ Dextrose 250 ml @ 0 mls/hr PROTOCOL IV 06/09/24 03:30 06/09/24 09:45 DC 06/09/24 03:31 10.78 MLS/HR Insulin Human Regular (humuLIN R 100 UNIT/ML 3ML) INSULIN SLIDING SCAL... Q6H6 SQ 06/11/24 12:00 06/13/24 11:22 DC 06/13/24 06:45 6 UNIT Insulin Human Regular (humuLIN R 100 UNIT/ML 3ML) INSULIN SLIDING SCAL... Q6H6 SQ 06/13/24 12:00 07/13/24 11:59 06/17/24 00:51 6 UNIT Insulin Human Regular 100 unit/ Sodium Chloride 101 ml @ 0 mls/hr PROTOCOL IV 06/09/24 10:00 06/11/24 13:29 DC 06/09/24 11:41 1 MLS/HR Ipratropium Boomer (AtrovENT UD) 0.5 MG [id number] IH 06/14/24 14:00 06/19/24 09:03 DC 06/19/24 06:21 0.5 MG Ipratropium Boomer (AtrovENT UD) 0.5 MG [id number] IH 06/19/24 12:00 07/14/24 13:59 06/20/24 06:37 0.5 MG Lactated Ringer's 1,000 ml @ 50 mls/hr Q20H IV 06/13/24 09:30 06/13/24 14:44 DC 06/13/24 11:18 50 MLS/HR Lactated Ringer's 1,000 ml @ 75 mls/hr [id number] IV 06/15/24 11:00 06/17/24 09:36 DC 06/17/24 03:57 75 MLS/HR Lactated Ringer's (Lactated Ringers 1000ml) 500 ml BOLUS IV 06/15/24 10:00 06/15/24 12:31 DC 06/15/24 10:04 500 ML Lactulose (Constulose 20gm/ 30ml Udcup) 20 gm DAILY PO 06/12/24 09:00 07/12/24 08:59 06/20/24 08:16 20 GM Levofloxacin/ Dextrose (LEvaquIN 750 MG/ D5W 150 ML) 750 mg Q24H IV 06/09/24 06:30 06/09/24 08:29 DC Lorazepam (AtiVAN) 2 mg Q4H PRN IVP ALCOHOL WITHDRAWAL PROTOCOL 06/09/24 18:00 06/16/24 17:59 DC Lorazepam (AtiVAN) 4 mg Q2H PRN IVP ALCOHOL WITHDRAWAL PROTOCOL 06/09/24 18:00 06/16/24 17:59 DC Magnesium Sulfate 50 ml @ 0 mls/hr PROTOCOL IV 06/09/24 10:00 06/11/24 13:29 DC 06/11/24 07:13 25 MLS/HR Magnesium Sulfate 50 ml @ 0 mls/hr PROTOCOL PRN IV OTHER [SEE ORDER COMMENTS] 06/09/24 01:00 06/09/24 06:50 DC 06/09/24 01:03 25 MLS/HR Magnesium Sulfate 50 ml @ 0 mls/hr PROTOCOL PRN IV OTHER [SEE ORDER COMMENTS] 06/09/24 07:00 06/09/24 08:35 DC Magnesium Sulfate 50 ml @ 0 mls/hr PROTOCOL PRN IV low magnesium 06/09/24 08:30 06/09/24 09:46 DC Magnesium Sulfate 50 ml @ 0 mls/hr PROTOCOL PRN IV MAGNESIUM PROTOCOL 06/11/24 15:00 07/11/24 14:59 06/19/24 06:32 25 MLS/HR Meropenem (Merrem 1gm) 1 gm Q12H IV 06/18/24 20:00 06/18/24 16:05 DC Meropenem (Merrem 1gm) 1 gm Q12H IV 06/19/24 14:30 06/29/24 14:29 06/20/24 04:31 1 GM Meropenem (Merrem 500mg) 500 mg ONCE IV 06/18/24 16:00 06/18/24 16:01 DC Metronidazole/ Sodium Chloride 100 ml @ 100 mls/hr Q8H6 IVPB 06/09/24 14:00 06/19/24 13:59 DC 06/19/24 06:04 100 MLS/HR Midazolam HCl (Midazolam 100mg-0.9% NS 100ml) 100 ml PROTOCOL IV 06/09/24 15:30 06/12/24 10:33 DC 06/11/24 08:05 100 ML Midodrine (PROAMatine 5 MG TABLET) 10 mg TID PO 06/11/24 14:00 06/14/24 10:06 DC 06/14/24 07:47 10 MG Midodrine (PROAMatine 5 MG TABLET) 15 mg TID PO 06/14/24 14:00 07/14/24 13:59 06/20/24 08:18 15 MG Multivitamins Therapeutic (Multivitamin Tablet) 1 tab DAILY PO 06/10/24 09:00 07/10/24 08:59 06/20/24 08:17 1 TAB Norepinephrine Bitartrate (Norepineph 16 Mg/250ml NS Premix) HIGH ALERT Init... PROTOCOL IV 06/09/24 12:30 07/09/24 12:29 06/13/24 19:21 16 MG Octreotide Acetate 1250 mcg/ Sodium Chloride 250 ml @ 0 mls/hr PROTOCOL IV 06/09/24 08:30 06/13/24 13:43 DC 06/11/24 13:17 5 MLS/HR Octreotide Acetate 500 mcg/ Sodium Chloride 100 ml @ 0 mls/hr PROTOCOL IV 06/09/24 04:30 06/09/24 08:13 DC 06/09/24 05:50 5 MLS/HR Ondansetron HCl (zoFRAN 4MG INJ) 4 mg Q4H PRN IV NAUSEA 06/09/24 18:00 07/09/24 17:59 Pantoprazole Sodium (PROTonix 40MG INJ) 40 mg BID IVP 06/11/24 21:00 07/11/24 20:59 06/20/24 08:17 40 MG Pantoprazole Sodium 80 mg/ Sodium Chloride 100 ml @ 10 mls/hr Q10H IVP 06/09/24 04:00 06/11/24 13:24 DC 06/11/24 08:04 10 MLS/HR Pharmacy Profile Note (Pharmacy Communication) 1 each PROTOCOL PRN MISC ETOH Withdrawal Score changes 06/09/24 18:00 06/16/24 17:59 DC Phenylephrine HCl 10 mg/Sodium Chloride 250 ml @ 0 mls/hr PROTOCOL PRN IV PROTOCOL 06/09/24 07:00 07/09/24 06:59 06/09/24 09:27 96 MLS/HR Potassium Chloride 20 meq/ Sodium Chloride 1,010 ml @ 0 mls/hr PROTOCOL IV 06/09/24 10:00 06/11/24 13:29 DC Potassium Chloride/Dextrose/ Sod Cl 1,000 ml @ 0 mls/hr AD IV 06/09/24 10:00 06/11/24 13:29 DC Potassium Chloride 100 ml @ 50 mls/hr AD PRN IV POTASSIUM PROTOCOL 06/09/24 07:00 06/09/24 08:34 DC Potassium Chloride 100 ml @ 50 mls/hr AD PRN IV POTASSIUM PROTOCOL 06/09/24 08:30 07/09/24 08:29 06/19/24 06:31 50 MLS/HR Potassium Chloride 100 ml @ 100 mls/hr AD PRN IV POTASSIUM PROTOCOL 06/09/24 08:30 06/09/24 08:41 DC Potassium Chloride (K-Dur/Klor-Con 20meq) 20 meq AD PRN PO POTASSIUM PROTOCOL 06/09/24 08:30 07/09/24 08:29 Potassium Chloride (KCl 10% Elixir 20meq/15ml) 20 meq AD PRN PO POTASSIUM PROTOCOL 06/09/24 08:30 07/09/24 08:29 06/17/24 08:17 20 MEQ Propofol (DIPRivan 1000MG/ 100ML) 1,000 mg PROTOCOL PRN IV SEDATION 06/14/24 17:30 07/14/24 17:29 Sodium Bicarbonate 150 meq/Dextrose 1,150 ml @ 150 mls/hr Q7H40M IVP 06/09/24 00:30 06/09/24 18:11 DC 06/09/24 01:18 150 MLS/HR Sodium Chloride 250 ml @ 0 mls/hr Q0M IV 06/19/24 05:00 07/19/24 04:59 06/19/24 05:07 0 MLS/HR Sodium Chloride 500 ml @ 0 mls/hr Q0M IV 06/17/24 18:00 06/18/24 15:59 DC 06/17/24 18:26 500 MLS/HR Sodium Chloride 1,000 ml @ 75 mls/hr [id number] IV 06/17/24 18:00 06/18/24 15:59 DC 06/18/24 08:49 75 MLS/HR Sodium Chloride 1,000 ml @ 200 mls/hr PROTOCOL IV 06/09/24 10:00 06/11/24 13:29 DC Thiamine HCl (Vitamin B-1) 300 mg DAILY IV 06/09/24 18:00 07/09/24 17:59 06/20/24 08:17 300 MG Vancomycin HCl 250 ml @ 125 mls/hr Q12H IV 06/09/24 22:00 06/10/24 21:50 DC 06/10/24 10:06 125 MLS/HR Vancomycin HCl 250 ml @ 125 mls/hr Q24H IV 06/11/24 22:00 06/12/24 21:39 DC 06/11/24 21:10 125 MLS/HR Vancomycin HCl 250 ml @ 125 mls/hr Q24H IV 06/13/24 22:00 06/18/24 15:59 DC 06/17/24 20:15 125 MLS/HR Vancomycin HCl (Vancomycin Protocol) 1 each AD IV 06/09/24 09:00 06/18/24 15:59 DC Vasopressin 20 units/Sodium Chloride 100 ml @ 0 mls/hr PROTOCOL IV 06/09/24 07:00 07/09/24 06:59 06/09/24 08:20 9 MLS/HR Wound Care/ Dressing Products (Venelex Ointment) 1 APPL TID TP 06/14/24 21:00 07/14/24 20:59 06/20/24 08:18 1 GM DIAGNOSTICS / RADIOLOGY: [ ] ASSESSMENT: Acute respiratory failure POA Septic shock, resolved Alcohol withdrawals Bilateral lower lobe bacterial pneumonia, POA Acute hepatic encephalopathy, resolved POA Combined alcoholic and fatty liver cirrhosis, POA MELD Score 19 points (19.6% estimated three month mortality) NSTEMI type 2, 2/2 supply and demand mismatch POA Acute on chronic Stage I Diastolic Heart Failure w/ EF of 40% POA Elevated troponin R/O ACS POA Elevated D-dimer of 3989, negative for DVT, Well score for PE 3 ( Moderate score) Metabolic acidosis POA Ascites Hepatomegaly Acute blood loss anemia POA Acute upper and lower GI bleed, POA Acute thrombocytopenia POA Acute on chronic diastolic CHF POA Hyperglycemia POA Hypomagnesemia POA Positive for THC POA Active alcohol drinker POA Acute complicated cystitis POA Hypertension POA acute GI bleed POA s/p EGD 06/13/24 non bleeding ulcer PLAN: Remains admitted to the ICU Successfully extubated 06/17. Continue to wean off oxygen Continue CIWA protocol with precedex and diazepam Wean precedex as able Continue midodrine 15mg TID, wean as able Continue lactulose 20g q24h Continue Cefepime Speech swallow study patient has failed 06/19/2024 Patient is pending barium swallow test 06/20/2024 Continue to follow critical care input and recommendation Repeated 2D echo LVEF is 50 to 55% no regional wall motion abnormalities noted in the views obtained. 06/18/2024 Continue broad-spectrum IV antibiotics for multifocal pneumoniae per ID recommen dations. Disposition: Pending improving in clinical condition, resolution of alcohol withdrawals, repeat swallow study. All questions answered time spent: > 35 min of ICU time ATTESTATION BY PHYSICIAN I have seen and examined the patient. I reviewed the documentation, medical decision making, and treatment plan as noted by the mid-level provider above. I agree with the findings and plan of care. January Byrd MD, [facility] [employer]INTE[employer]CE [employer]CH[employer] Jun 20, 2024 11:07
--- NOTE | 2024-06-20 13:26 | PN ---
GASTROENTEROLOGY PROGRESS NOTE Date of Visit: Jun 20, 2024 Time of Visit: 13:25 Events / Notes: No acute events overnight. EGD with gastric ulcer. Denies fever, chills, abdominal pain, N/V, hematemesis, bloating, constipation, diarrhea, melena or hematochezia. Review of Systems: CONSTITUTIONAL: No malaise or change in sensation of wellbeing. ENMT: No rhinorrhea, otorrhea, sinus pain, ear ache. CARDIOVASCULAR: No angina, palpitations, orthopnea or paroxysmal dyspnea. RESPIRATORY: No SOB. GASTROINTESTINAL: No abdominal pain, nausea, vomiting, diarrhea, hematemesis, melena or change in the patient's habitual bowel movements consistency/number. GENITOURINARY: No dysuria, hematuria or change in bladder continence. MUSCULOSKELETAL: No new muscle pain or decrease in muscular strength. No new joint swelling, redness or tenderness. SKIN: No new rash. Physical Exam: GEN: Awake, alert, oriented in person, time and place, and in no acute distress. HEENT: No sinus tenderness. Tympanic membranes were not examined. No rhinorrhea. Oral pharyngeal mucosa is pink, moist and within normal limits. Neck is supple with no cervical lymphadenopathy, thyromegaly or JVD. CHEST: Inspection, palpation and percussion of the chest were unremarkable. Lung auscultation revealed normal breath sounds bilaterally. CARDIAC: PMI is within normal limits. Heart sounds are regular. Normal S1, S2. No gallop or murmur. ABD: Soft, non-tender and not distended. No peritoneal signs on palpation. No organomegaly. Normal bowel sounds. EXT: No cyanosis or clubbing. No edema. SKIN: Intact. No rashes. JOINTS: No evidence of synovitis or acute arthritis. NEURO: Alert and oriented to name, place and person. Cranial nerve examination is unremarkable. No focal motor deficits. Normal speech. Gait is normal. Strength is normal. Vital Signs (last 8hr) Date Time Temp Pulse Resp B/P (MAP) Pulse Ox O2 Delivery O2 Flow Rate FiO2 06/20/24 11:35 97 20 06/20/24 10:00 93 25 102/75 (84) 96 21 06/20/24 09:16 103 22 100/74 (83) 95 21 06/20/24 09:00 94 28 111/66 (81) 94 21 06/20/24 08:20 98 22 N/Cannula Low lpm 2.0 28 06/20/24 08:16 80 26 102/68 (79) 96 21 06/20/24 08:00 72 21 115/80 (92) 98 21 06/20/24 07:16 114 19 112/76 (88) 97 21 06/20/24 07:00 68 23 129/86 (100) 97 06/20/24 06:37 70 20 06/20/24 06:30 68 21 122/84 (97) 97 06/20/24 06:00 66 23 112/71 (85) 97 06/20/24 05:30 60 24 108/64 (79) 98 Laboratory: [ ] Laboratory: Test 06/20/24 11:49 06/20/24 06:12 06/20/24 03:43 06/19/24 04:18 Range/Units Whole Blood Glucose 125 H 70-110 MG/DL Ammonia < 10 L 11-32 umol/L White Blood Count 11.8 #H 4.8-10.8 K/uL Red Blood Count 2.99 L 4.50-6.20 MIL/uL Hemoglobin 10.2 L 14.0-18.0 g/dL Hematocrit 31.6 L 42-54 % Mean Corpuscular Volume 105.7 H 79-99 fL Mean Corpuscular Hemoglobin 34.1 H 27.0-33.0 pg Mean Corpuscular Hemoglobin Concent 32.3 32.0-36.0 g/dL Red Cell Distribution Width 14.5 11.0-15.5 % Platelet Count 177 130-400 K/uL Mean Platelet Volume 13.2 H 7.5-10.5 fL Immature Granulocyte % (Auto) 0.8 0-1 % Neutrophils (%) (Auto) 79.4 H 40.0-77.0 % Lymphocytes (%) (Auto) 10.0 L 21.0-51.0 % Monocytes (%) (Auto) 8.0 3.0-13.0 % Eosinophils (%) (Auto) 1.1 0.0-8.0 % Basophils (%) (Auto) 0.7 0.0-5.0 % Neutrophils # (Auto) 9.4 H 1.8-7.7 K/uL Lymphocytes # (Auto) 1.2 1.0-4.8 K/uL Monocytes # (Auto) 1.0 0.1-1.0 K/uL Eosinophils # (Auto) 0.13 0.00-0.70 K/uL Basophils # (Auto) 0.08 0.00-0.20 K/uL Absolute Immature Granulocyte (auto 0.10 0-1 K/uL Nucleated Red Blood Cells 0.0 0.0-0.19 % Sodium Level 149 H 136-145 mmol/L Potassium Level 3.9 3.5-5.1 mmol/L Chloride Level 117 H 101-111 mmol/L Carbon Dioxide Level 21 21-32 mmol/L Blood Urea Nitrogen 33 H 7-18 mg/dL Creatinine 1.1 0.5-1.3 mg/dL Glomerular Filtration Rate Calc 79 >90 mL/min Random Glucose 145 H 70-105 mg/dL Total Calcium 8.1 L 8.5-10.1 mg/dL Magnesium Level 2.40 1.80-2.40 mg/dL Total Bilirubin 4.6 H 0.2-1.0 mg/dL Aspartate Amino Transf (AST/SGOT) 82 H 10-37 U/L Alanine Aminotransferase (ALT/SGPT) 34 12-78 U/L Alkaline Phosphatase 140 H 50-136 U/L Total Protein 5.0 L 6.0-8.3 g/dL Albumin 1.8 L 3.5-5.0 g/dL Current Medications Medications (Trade) Dose Ordered Sig/Quan Route PRN Reason Start Time Stop Time Status Last Admin Dose Admin Acetaminophen (TYLenol 500MG TAB) 500 mg Q6H PRN PO TEMP < 101.1 AND/OR HEADACHE 06/09/24 18:00 07/09/24 17:59 06/14/24 17:35 500 MG Albumin Human 100 ml @ 50 mls/hr AD IV 06/12/24 11:00 06/14/24 10:59 DC 06/12/24 13:30 50 MLS/HR Albumin Human 250 ml @ 0 mls/hr AD IV 06/17/24 11:00 06/19/24 10:59 DC 06/17/24 10:54 250 MLS/HR Artificial Tears (Artificial Tears) 1 DROP OR AD Q8H OU 06/09/24 09:00 07/09/24 08:59 06/20/24 08:18 1 DROP Cefepime HCl (MAXipime 2 gm vial) 2 gm Q12H IVPB 06/11/24 05:00 06/18/24 15:59 DC 06/18/24 05:05 2 GM Cefepime HCl (MAXipime 2 gm vial) 2 gm Q12H IVPB 06/18/24 16:30 06/18/24 16:06 DC Cefepime HCl (MAXipime 2 gm vial) 2 gm Q12H IVPB 06/18/24 17:00 06/19/24 14:11 DC 06/19/24 02:32 2 GM Cefepime HCl (MAXipime 2 gm vial) 2 gm Q8H IVPB 06/09/24 09:00 06/10/24 19:49 DC 06/10/24 16:44 2 GM Chlorhexidine Gluconate (Peridex) 15 ml Q8H MM 06/09/24 09:00 06/23/24 08:59 06/20/24 08:16 15 ML Dexmedetomidine/ Sodium Chloride (PRECEdex 400MCG/ 100ML-NS) 400 mcg PROTOCOL IV 06/11/24 20:30 07/11/24 20:29 06/19/24 21:01 400 MCG Dextrose/Sodium Chloride 1,000 ml @ 0 mls/hr AD IV 06/09/24 10:00 06/11/24 13:29 DC Diazepam (VALium 5 mg TAB) 10 mg Q12H NG 06/18/24 16:00 06/20/24 12:51 DC 06/20/24 04:31 10 MG Diazepam (VALium 5 mg TAB) 15 mg Q12H NG 06/20/24 16:00 07/20/24 15:59 Fentanyl Citrate 100 ml @ 2.5 mls/hr PROTOCOL IV 06/09/24 06:30 06/12/24 13:28 DC 06/11/24 21:06 2.5 MLS/HR Folic Acid (FolVITE 5 MG/ML VIAL) 1 mg DAILY IV 06/09/24 18:00 07/09/24 17:59 06/20/24 08:16 1 MG Furosemide (LASix 20MG VIAL) 20 mg DAILY IV 06/13/24 09:00 06/13/24 09:20 DC 06/13/24 07:59 20 MG Furosemide (LASix 20MG VIAL) 20 mg DAILY IV 06/19/24 09:00 07/19/24 08:59 06/20/24 08:17 20 MG Furosemide (LASix 20MG VIAL) 20 mg Q12H IV 06/09/24 12:00 06/09/24 11:26 DC Furosemide (LASix 20MG VIAL) 20 mg Q6H6 IV 06/09/24 12:00 06/12/24 07:38 DC 06/12/24 06:46 20 MG Furosemide (LASix 20MG VIAL) 40 mg Q12H IV 06/12/24 08:00 06/12/24 14:58 DC 06/12/24 08:16 40 MG Heparin Sodium/ Dextrose 250 ml @ 0 mls/hr PROTOCOL IV 06/09/24 03:30 06/09/24 09:45 DC 06/09/24 03:31 10.78 MLS/HR Insulin Human Regular (humuLIN R 100 UNIT/ML 3ML) INSULIN SLIDING SCAL... Q6H6 SQ 06/11/24 12:00 06/13/24 11:22 DC 06/13/24 06:45 6 UNIT Insulin Human Regular (humuLIN R 100 UNIT/ML 3ML) INSULIN SLIDING SCAL... Q6H6 SQ 06/13/24 12:00 07/13/24 11:59 06/17/24 00:51 6 UNIT Insulin Human Regular 100 unit/ Sodium Chloride 101 ml @ 0 mls/hr PROTOCOL IV 06/09/24 10:00 06/11/24 13:29 DC 06/09/24 11:41 1 MLS/HR Ipratropium [place] (AtrovENT UD) 0.5 MG [id number] 06/14/24 14:00 06/19/24 09:03 DC 06/19/24 06:21 0.5 MG Ipratropium [place] (AtrovENT UD) 0.5 MG [id number] IH 06/19/24 12:00 07/14/24 13:59 06/20/24 11:35 0.5 MG Lactated Ringer's 1,000 ml @ 50 mls/hr Q20H IV 06/13/24 09:30 06/13/24 14:44 DC 06/13/24 11:18 50 MLS/HR Lactated Ringer's 1,000 ml @ 75 mls/hr [id number] IV 06/15/24 11:00 06/17/24 09:36 DC 06/17/24 03:57 75 MLS/HR Lactated Ringer's (Lactated Ringers 1000ml) 500 ml BOLUS IV 06/15/24 10:00 06/15/24 12:31 DC 06/15/24 10:04 500 ML Lactulose (Constulose 20gm/ 30ml Udcup) 20 gm DAILY PO 06/12/24 09:00 07/12/24 08:59 06/20/24 08:16 20 GM Levofloxacin/ Dextrose (LEvaquIN 750 MG/ D5W 150 ML) 750 mg Q24H IV 06/09/24 06:30 06/09/24 08:29 DC Lorazepam (AtiVAN) 2 mg Q4H PRN IVP ALCOHOL WITHDRAWAL PROTOCOL 06/09/24 18:00 06/16/24 17:59 DC Lorazepam (AtiVAN) 4 mg Q2H PRN IVP ALCOHOL WITHDRAWAL PROTOCOL 06/09/24 18:00 06/16/24 17:59 DC Magnesium Sulfate 50 ml @ 0 mls/hr PROTOCOL IV 06/09/24 10:00 06/11/24 13:29 DC 06/11/24 07:13 25 MLS/HR Magnesium Sulfate 50 ml @ 0 mls/hr PROTOCOL PRN IV OTHER [SEE ORDER COMMENTS] 06/09/24 01:00 06/09/24 06:50 DC 06/09/24 01:03 25 MLS/HR Magnesium Sulfate 50 ml @ 0 mls/hr PROTOCOL PRN IV OTHER [SEE ORDER COMMENTS] 06/09/24 07:00 06/09/24 08:35 DC Magnesium Sulfate 50 ml @ 0 mls/hr PROTOCOL PRN IV low magnesium 06/09/24 08:30 06/09/24 09:46 DC Magnesium Sulfate 50 ml @ 0 mls/hr PROTOCOL PRN IV MAGNESIUM PROTOCOL 06/11/24 15:00 07/11/24 14:59 06/19/24 06:32 25 MLS/HR Meropenem (Merrem 1gm) 1 gm Q12H IV 06/18/24 20:00 06/18/24 16:05 DC Meropenem (Merrem 1gm) 1 gm Q12H IV 06/19/24 14:30 06/29/24 14:29 06/20/24 04:31 1 GM Meropenem (Merrem 500mg) 500 mg ONCE IV 06/18/24 16:00 06/18/24 16:01 DC Metronidazole/ Sodium Chloride 100 ml @ 100 mls/hr Q8H6 IVPB 06/09/24 14:00 06/19/24 13:59 DC 06/19/24 06:04 100 MLS/HR Midazolam HCl (Midazolam 100mg-0.9% NS 100ml) 100 ml PROTOCOL IV 06/09/24 15:30 06/12/24 10:33 DC 06/11/24 08:05 100 ML Midodrine (PROAMatine 5 MG TABLET) 10 mg TID PO 06/11/24 14:00 06/14/24 10:06 DC 06/14/24 07:47 10 MG Midodrine (PROAMatine 5 MG TABLET) 15 mg TID PO 06/14/24 14:00 07/14/24 13:59 06/20/24 08:18 15 MG Multivitamins Therapeutic (Multivitamin Tablet) 1 tab DAILY PO 06/10/24 09:00 07/10/24 08:59 06/20/24 08:17 1 TAB Norepinephrine Bitartrate (Norepineph 16 Mg/250ml NS Premix) HIGH ALERT Init... PROTOCOL IV 06/09/24 12:30 07/09/24 12:29 06/13/24 19:21 16 MG Octreotide Acetate 1250 mcg/ Sodium Chloride 250 ml @ 0 mls/hr PROTOCOL IV 06/09/24 08:30 06/13/24 13:43 DC 06/11/24 13:17 5 MLS/HR Octreotide Acetate 500 mcg/ Sodium Chloride 100 ml @ 0 mls/hr PROTOCOL IV 06/09/24 04:30 06/09/24 08:13 DC 06/09/24 05:50 5 MLS/HR Ondansetron HCl (zoFRAN 4MG INJ) 4 mg Q4H PRN IV NAUSEA 06/09/24 18:00 07/09/24 17:59 Pantoprazole Sodium (PROTonix 40MG INJ) 40 mg BID IVP 06/11/24 21:00 07/11/24 20:59 06/20/24 08:17 40 MG Pantoprazole Sodium 80 mg/ Sodium Chloride 100 ml @ 10 mls/hr Q10H IVP 06/09/24 04:00 06/11/24 13:24 DC 06/11/24 08:04 10 MLS/HR Pharmacy Profile Note (Pharmacy Communication) 1 each PROTOCOL PRN MISC ETOH Withdrawal Score changes 06/09/24 18:00 06/16/24 17:59 DC Phenylephrine HCl 10 mg/Sodium Chloride 250 ml @ 0 mls/hr PROTOCOL PRN IV PROTOCOL 06/09/24 07:00 07/09/24 06:59 06/09/24 09:27 96 MLS/HR Potassium Chloride 20 meq/ Sodium Chloride 1,010 ml @ 0 mls/hr PROTOCOL IV 06/09/24 10:00 06/11/24 13:29 DC Potassium Chloride/Dextrose/ Sod Cl 1,000 ml @ 0 mls/hr AD IV 06/09/24 10:00 06/11/24 13:29 DC Potassium Chloride 100 ml @ 50 mls/hr AD PRN IV POTASSIUM PROTOCOL 06/09/24 07:00 06/09/24 08:34 DC Potassium Chloride 100 ml @ 50 mls/hr AD PRN IV POTASSIUM PROTOCOL 06/09/24 08:30 07/09/24 08:29 06/19/24 06:31 50 MLS/HR Potassium Chloride 100 ml @ 100 mls/hr AD PRN IV POTASSIUM PROTOCOL 06/09/24 08:30 06/09/24 08:41 DC Potassium Chloride (K-Dur/Klor-Con 20meq) 20 meq AD PRN PO POTASSIUM PROTOCOL 06/09/24 08:30 07/09/24 08:29 Potassium Chloride (KCl 10% Elixir 20meq/15ml) 20 meq AD PRN PO POTASSIUM PROTOCOL 06/09/24 08:30 07/09/24 08:29 06/17/24 08:17 20 MEQ Propofol (DIPRivan 1000MG/ 100ML) 1,000 mg PROTOCOL PRN IV SEDATION 06/14/24 17:30 07/14/24 17:29 Sodium Bicarbonate 150 meq/Dextrose 1,150 ml @ 150 mls/hr Q7H40M IVP 06/09/24 00:30 06/09/24 18:11 DC 06/09/24 01:18 150 MLS/HR Sodium Chloride 250 ml @ 0 mls/hr Q0M IV 06/19/24 05:00 07/19/24 04:59 06/19/24 05:07 0 MLS/HR Sodium Chloride 500 ml @ 0 mls/hr Q0M IV 06/17/24 18:00 06/18/24 15:59 DC 06/17/24 18:26 500 MLS/HR Sodium Chloride 1,000 ml @ 75 mls/hr [id number] IV 06/17/24 18:00 06/18/24 15:59 DC 06/18/24 08:49 75 MLS/HR Sodium Chloride 1,000 ml @ 200 mls/hr PROTOCOL IV 06/09/24 10:00 06/11/24 13:29 DC Thiamine HCl (Vitamin B-1) 300 mg DAILY IV 06/09/24 18:00 07/09/24 17:59 06/20/24 08:17 300 MG Vancomycin HCl 250 ml @ 125 mls/hr Q12H IV 06/09/24 22:00 06/10/24 21:50 DC 06/10/24 10:06 125 MLS/HR Vancomycin HCl 250 ml @ 125 mls/hr Q24H IV 06/11/24 22:00 06/12/24 21:39 DC 06/11/24 21:10 125 MLS/HR Vancomycin HCl 250 ml @ 125 mls/hr Q24H IV 06/13/24 22:00 06/18/24 15:59 DC 06/17/24 20:15 125 MLS/HR Vancomycin HCl (Vancomycin Protocol) 1 each AD IV 06/09/24 09:00 06/18/24 15:59 DC Vasopressin 20 units/Sodium Chloride 100 ml @ 0 mls/hr PROTOCOL IV 06/09/24 07:00 07/09/24 06:59 06/09/24 08:20 9 MLS/HR Wound Care/ Dressing Products (Venelex Ointment) 1 APPL TID TP 06/14/24 21:00 07/14/24 20:59 06/20/24 08:18 1 GM Diagnostics / Radiology: [COPY/PASTE HERE IF NO REPORTS PLEASE DELETE SECTION] Assessment: Gastric ulcer Acute blood loss anemia Cirrhosis Plan: Continue GI prophylaxis Advance diet as tolerated Avoid NSAIDs Antireflux measures Monitor H&H and transfuse as needed Call with questions, concerns or change in clinical status Patient to follow-up at clinic post discharge Thank you for this consult LISA FRASER Jun 20, 2024 13:26
[2024-06-20] MEDS: diazePAM 5 MG TAB NG SCH (15:14)
--- NOTE | 2024-06-20 15:30 | NUR ---
NGT placed in Low intermitted suction due to KUB showing Small bowel Dilation. MD Mccollum notified. Patient NPO.
--- NOTE | 2024-06-20 15:50 | HMCIMG ---
ABD 1VW HISTORY: Abdominal distention COMPARISON: 06/17/2024 FINDINGS: A frontal projection of the abdomen was obtained. Gastric distention is seen. Small bowel dilatation is seen. Nasogastric tube is seen with distal tip in the plane of the stomach. Fecal material is seen in the colon. Degenerative changes of the thoracolumbar spine are noted. IMPRESSION: 1. Small bowel dilatation.+
--- NOTE | 2024-06-20 16:15 | NUR ---
MBSS COMPLETED. SILENT, AIDE ASPIRATION after the swallow with pudding thick liquids. Recommend NPO, intermediate card tender alternate means of nutrition/hydration. PLUMBER'S HELPER reviewed results and recommendations with patient and nurse Lucita. PLUMBER'S HELPER educated patient on risks and consequences of aspiration. Speech therapy warranted at this time to address dysphagia. All questions answered. RECOMMENDATIONS: Dysphagia Therapy 1-3X week to increase oral motor strength and pharyngeal swallow: LTG#1: Pt will tolerate least restrictive diet to meet nutrition/hydration with no s/s of aspiration. LTG#2: Skilled education Pt/family/staff STG#1: Pt will participate in laryngeal elevation/excursion exercises with 90% accuracy and min A. STG#2: Pt will participate in tongue base retraction exercises with 90% acc/with Min A. STG#3: Pt will participate in oral motor exercises with 90% acc/with Min A. STG#4: Pt will demonstrate a swallow delay of only -2 seconds following thermal tactile stimulation with 90% accuracy. STG#5: Skilled education Pt/family/staff. Addendum: 06/20/[address] VIVI BRINK Amended: Links added.
--- NOTE | 2024-06-20 16:45 | NUR ---
Arrived back from Barium swallowing test. Patient stable, no distress noted. Patient remains NPO at this time.
--- NOTE | 2024-06-20 16:59 | NUR ---
CM NOTE CM spoke to patient's sister Ely Francesca [phone]. Patient with AMS. States she has been assisting with making medical decisions. Asked CM about MPOA paperwork. CM explained that patient will need to be oriented and off sedative in order to complete paperwork. Verbalized understanding. CM asked if patient has any children. Reports patient has one son named Ravi Vickers [phone]. States she has communicated with him and does not want to be involved. States he is estranged. CM called son Ravi and verified he has deferred decision making to patient's sister Ely. CM provided printed in network SNF list and left at bedside for sister Ely to review. States she will be in later tonight. CM to f/u with facility choice for rehab. Addendum: 06/20/24 at 1710 by JOSE G LEYVA Amended: Links added.
--- NOTE | 2024-06-20 17:33 | HMCIMG ---
MODIFIED BARIUM SWALLOW W CINE REASON: dysphagia per ST eval. . COMPARISON: None TECHNIQUE: Modified barium swallow study was performed. FINDINGS: Please see procedure report by referring speech therapist. IMPRESSION: Modified barium swallow study.
--- NOTE | 2024-06-20 18:53 | PN ---
INFECTIOUS DISEASE PROGRESS NOTE Date of Service: Jun 20, 2024 SUBJECTIVE: This is a 53 year old male patient who presented to the emergency room for persistent nausea,vomiting and shortness of breath. A chest x-ray done on admission showed bilateral lower lobe infiltrates consistent with pneumonia. Patient went into acute hypoxic respiratory failure while in the ED requiring intubation on 06/09/2024. Patient was extubated on 06/17/2024. An abdominal ultrasound showed ascites. Patient was seen and examined at bedside in the ICU room 206. Patient is awake, alert and oriented. Patient is status post extubation on 06/17/2024. Currently on oxygen via nasal cannula at 2 liters/minute. Tracheal aspirate culture results came back positive for Stenotrophomonas maltophilia. Will continue on Meropenem IV. We will continue to monitor patient's care. PHYSICAL EXAM EYES: Anicteric. Pupils equal and reactive. HENT: No oral thrush seen, moist Oral mucosa NECK: Supple, no JVD or thyromegaly. RESPIRATORY: Good air entry. No rales, no rhonchi. Oxygen via nasal cannula. CARDIOVASCULAR: S1, S2 regular. No murmur heard. ABDOMEN: Full, present bowel sounds. CENTRAL NERVOUS SYSTEM: Awake, alert, oriented x 3. SKIN: No rashes, no swelling. Bilateral gluteus Stage II pressure decubitus ulcer. LYMPHATICS: No peripheral lymphadenopathy MUSCULOSKELETAL: No joint swelling, erythema or tenderness. EXTREMITIES: No cyanosis or clubbing BACK: No deformity, no pressure ulcer. GENITOURINARY: No dysuria or hematuria. Vital Sign (Last 12 Hours) 06/20/24 06/20/24 06/20/24 06/20/24 07:00 07:16 08:00 08:16 Pulse 68 114 72 80 Resp 23 19 21 26 B/P (MAP) 129/86 (100) 112/76 (88) 115/80 (92) 102/68 (79) Pulse Ox 97 97 98 96 FiO2 21 21 21 06/20/24 06/20/24 06/20/24 06/20/24 08:20 08:30 09:00 09:16 Pulse 98 94 103 Resp 22 28 22 B/P (MAP) 111/66 (81) 100/74 (83) Pulse Ox 97 94 95 O2 Delivery N/Cannula Low lpm Room Air* O2 Flow Rate 2.0 0 FiO2 28 21 21 21 06/20/24 06/20/24 06/20/24 06/20/24 10:00 10:16 10:46 11:04 Pulse 93 85 79 114 Resp 23 21 23 B/P (MAP) 102/75 (84) 96/68 (77) 103/62 (76) 85/52 (63) Pulse Ox 96 97 97 98 FiO2 21 06/20/24 06/20/24 06/20/24 06/20/24 11:08 11:16 11:20 11:35 Pulse 101 106 98 97 Resp 23 32 20 B/P (MAP) 90/63 (72) 77/29 (45) 86/62 (70) Pulse Ox 95 93 90 06/20/24 06/20/24 06/20/24 06/20/24 11:46 12:00 12:16 12:30 Pulse 98 97 115 Resp 23 30 B/P (MAP) 85/43 (57) 87/64 (72) Pulse Ox 97 97 82 95 O2 Delivery Room Air* O2 Flow Rate 0 FiO2 21 06/20/24 06/20/24 06/20/24 06/20/24 13:00 13:11 13:16 13:25 Pulse 122 110 110 119 Resp 28 25 15 26 B/P (MAP) 69/50 (56) 91/66 (74) 91/56 (68) 107/74 (85) Pulse Ox 98 97 96 96 06/20/24 06/20/24 06/20/24 06/20/24 14:00 14:00 14:16 15:00 Pulse 133 114 122 121 Resp 26 32 24 B/P (MAP) 116/65 (82) 117/81 (93) 105/73 (84) Pulse Ox 96 97 97 98 06/20/24 06/20/24 06/20/24 16:30 18:26 18:26 Pulse 108 109 Resp 20 20 Pulse Ox 96 O2 Delivery Room Air* N/A Room Air O2 Flow Rate 0 FiO2 21 21 Intake & Output (last 24hrs) 06/19/24 06/19/24 06/20/24 15:00 23:00 07:00 Intake Total 540.0 ml 455.0 ml 521.9 ml Output Total 700 ml Balance 540.0 ml -245.0 ml 521.9 ml LABS: Laboratory: Test 06/20/24 11:49 06/20/24 06:12 06/20/24 03:43 06/19/24 04:18 Range/Units Whole Blood Glucose 125 H 70-110 MG/DL Ammonia < 10 L 11-32 umol/L White Blood Count 11.8 #H 4.8-10.8 K/uL Red Blood Count 2.99 L 4.50-6.20 MIL/uL Hemoglobin 10.2 L 14.0-18.0 g/dL Hematocrit 31.6 L 42-54 % Mean Corpuscular Volume 105.7 H 79-99 fL Mean Corpuscular Hemoglobin 34.1 H 27.0-33.0 pg Mean Corpuscular Hemoglobin Concent 32.3 32.0-36.0 g/dL Red Cell Distribution Width 14.5 11.0-15.5 % Platelet Count 177 130-400 K/uL Mean Platelet Volume 13.2 H 7.5-10.5 fL Immature Granulocyte % (Auto) 0.8 0-1 % Neutrophils (%) (Auto) 79.4 H 40.0-77.0 % Lymphocytes (%) (Auto) 10.0 L 21.0-51.0 % Monocytes (%) (Auto) 8.0 3.0-13.0 % Eosinophils (%) (Auto) 1.1 0.0-8.0 % Basophils (%) (Auto) 0.7 0.0-5.0 % Neutrophils # (Auto) 9.4 H 1.8-7.7 K/uL Lymphocytes # (Auto) 1.2 1.0-4.8 K/uL Monocytes # (Auto) 1.0 0.1-1.0 K/uL Eosinophils # (Auto) 0.13 0.00-0.70 K/uL Basophils # (Auto) 0.08 0.00-0.20 K/uL Absolute Immature Granulocyte (auto 0.10 0-1 K/uL Nucleated Red Blood Cells 0.0 0.0-0.19 % Sodium Level 149 H 136-145 mmol/L Potassium Level 3.9 3.5-5.1 mmol/L Chloride Level 117 H 101-111 mmol/L Carbon Dioxide Level 21 21-32 mmol/L Blood Urea Nitrogen 33 H 7-18 mg/dL Creatinine 1.1 0.5-1.3 mg/dL Glomerular Filtration Rate Calc 79 >90 mL/min Random Glucose 145 H 70-105 mg/dL Total Calcium 8.1 L 8.5-10.1 mg/dL Magnesium Level 2.40 1.80-2.40 mg/dL Total Bilirubin 4.6 H 0.2-1.0 mg/dL Aspartate Amino Transf (AST/SGOT) 82 H 10-37 U/L Alanine Aminotransferase (ALT/SGPT) 34 12-78 U/L Alkaline Phosphatase 140 H 50-136 U/L Total Protein 5.0 L 6.0-8.3 g/dL Albumin 1.8 L 3.5-5.0 g/dL ASSESSMENT: Acute hypoxic respiratory failure requiring intubation on 06/09/2024, s/p extuba carlos on 06/17/2024. Pneumonia with Stenotrophomonas maltophilia. Leukocytosis. Bilateral gluteus Stage II pressure decubitus ulcer. Thrombocytopenia Liver cirrhosis, ascites. Substance abuse, positive for marijuana POA. Debility. PLAN: Continue on Meropenem. Start Bactrim p.o. b.i.d.. Continue critical care support. Continue CIWA protocol. Continue GI prophylaxis. continue oxygen support. Continue with Physical therapy. We will follow up on the culture results. This case was reviewed and discussed with my supervising physician and the above assessment and plan was formulated and agreed upon. ATTESTATION BY PHYSICIAN I have seen and examined the patient. I reviewed the documentation, medical decision making, and treatment plan as noted by the mid-level provider above. I agree with the findings and plan of care. BABAK MCGUIRE MD, MIRTA L MAORI PHYSIOTHERAPIST Jun 20, 2024 18:53
--- NOTE | 2024-06-20 19:09 | PN ---
[facility] PROGRESS NOTE Date Patient Seen: Jun 20, 2024 Time of Visit: 19:02 Supervising Physician: RAFAEL MARTINEZ MD Primary Care Physician: Arthur Sexton MD Outpatient Specialists: Inpatient Consults: Dr Mena. AGBBY, Dr Hill PROBLEM LIST: Acute sepsis with septic shock Bilateral lower lobe pneumonia on admission secondary to aspiration Pneumonia with positive gram negative rods Acute hepatic encephalopathy secondary to hyperammonemia Acute decompensated alcoholic liver cirrhosis, MELD score 19 Ascites secondary to above Type [address] elevation myocardial infarction Acute on chronic diastolic heart failure exacerbation Acute metabolic acidosis Thrombocytopenia Anemia of chronic disease Acute GI bleed secondary to gastric ulcer Severe protein calorie malnutrition [place] use disorder Alcohol use disorder INTERVAL HISTORY: Mr. Vickers is seen and evaluated in room 206 Clinical chart reviewed, events of the last 24 hours noted patient is currently on room air, he has an NGT complains of abdominal distention complains of nausea and poor appetite no residuals from NGT, complains of abdominal pain no evidence of GI bleed in the last 24 hours, no melena or hematochezia He is very weak, pale and severely deconditioned no fevers reported, no diarrhea occasional cough, no congestion REVIEW OF SYSTEMS: 12 points review of systems done, all pertinent information addressed PHYSICAL EXAM: GENERAL: Intubated off sedation HEENT: Sclera non icteric, dry mucosa NECK: Supple, no JVD, trachea midline LUNGS: Diminished breath sounds bilaterally. No wheezes HEART: Regular rate and rhythm. Normal S1 and S2, without murmurs ABD:Abdomen is massively distended, tympanic. No rebound, no guarding EXT: No clubbing cyanosis , swelling to bilateral lower extremities. NEURO: Intubated off sedation Vital Signs (last 8hr) Date Time Temp Pulse Resp B/P (MAP) Pulse Ox O2 Delivery O2 Flow Rate FiO2 06/20/24 18:30 146 19 132/85 (101) 100 06/20/24 18:26 109 20 06/20/24 18:26 108 20 N/A Room Air 21 06/20/24 18:00 89 17 117/71 (86) 97 06/20/24 17:16 100 20 127/68 (87) 97 06/20/24 17:00 106 23 118/71 (87) 97 06/20/24 16:40 101 22 109/72 (84) 97 06/20/24 16:30 96 Room Air* 0 21 06/20/24 16:15 N/A Room Air 06/20/24 16:00 93 16 96/68 (77) 99 06/20/24 15:17 145 16 91/64 (73) 97 06/20/24 15:00 121 24 105/73 (84) 98 06/20/24 14:16 122 32 117/81 (93) 97 06/20/24 14:00 114 26 116/65 (82) 97 06/20/24 14:00 133 25 96 06/20/24 13:25 119 26 107/74 (85) 96 06/20/24 13:16 110 15 91/56 (68) 96 06/20/24 13:11 110 25 91/66 (74) 97 06/20/24 13:00 122 28 69/50 (56) 98 06/20/24 12:30 95 Room Air* 0 21 06/20/24 12:16 115 30 87/64 (72) 82 06/20/24 12:00 97 23 97 06/20/24 11:46 98 23 85/43 (57) 97 06/20/24 11:35 97 20 06/20/24 11:20 98 32 86/62 (70) 90 06/20/24 11:16 106 23 77/29 (45) 93 06/20/24 11:08 101 24 90/63 (72) 95 06/20/24 11:04 114 23 85/52 (63) 98 LABS: Hematology Labs: Test 06/20/24 03:43 Range/Units White Blood Count 11.8 #H 4.8-10.8 K/uL Red Blood Count 2.99 L 4.50-6.20 MIL/uL Hemoglobin 10.2 L 14.0-18.0 g/dL Hematocrit 31.6 L 42-54 % Mean Corpuscular Volume 105.7 H 79-99 fL Mean Corpuscular Hemoglobin 34.1 H 27.0-33.0 pg Mean Corpuscular Hemoglobin Concent 32.3 32.0-36.0 g/dL Red Cell Distribution Width 14.5 11.0-15.5 % Platelet Count 177 130-400 K/uL Mean Platelet Volume 13.2 H 7.5-10.5 fL Immature Granulocyte % (Auto) 0.8 0-1 % Neutrophils (%) (Auto) 79.4 H 40.0-77.0 % Lymphocytes (%) (Auto) 10.0 L 21.0-51.0 % Monocytes (%) (Auto) 8.0 3.0-13.0 % Eosinophils (%) (Auto) 1.1 0.0-8.0 % Basophils (%) (Auto) 0.7 0.0-5.0 % Neutrophils # (Auto) 9.4 H 1.8-7.7 K/uL Lymphocytes # (Auto) 1.2 1.0-4.8 K/uL Monocytes # (Auto) 1.0 0.1-1.0 K/uL Eosinophils # (Auto) 0.13 0.00-0.70 K/uL Basophils # (Auto) 0.08 0.00-0.20 K/uL Absolute Immature Granulocyte (auto 0.10 0-1 K/uL Nucleated Red Blood Cells 0.0 0.0-0.19 % Chemistry Labs: Test 06/20/24 11:49 06/20/24 06:12 06/20/24 03:43 06/19/24 04:18 Range/Units Whole Blood Glucose 125 H 70-110 MG/DL Ammonia < 10 L 11-32 umol/L Sodium Level 149 H 136-145 mmol/L Potassium Level 3.9 3.5-5.1 mmol/L Chloride Level 117 H 101-111 mmol/L Carbon Dioxide Level 21 21-32 mmol/L Blood Urea Nitrogen 33 H 7-18 mg/dL Creatinine 1.1 0.5-1.3 mg/dL Glomerular Filtration Rate Calc 79 >90 mL/min Random Glucose 145 H 70-105 mg/dL Total Calcium 8.1 L 8.5-10.1 mg/dL Magnesium Level 2.40 1.80-2.40 mg/dL Total Bilirubin 4.6 H 0.2-1.0 mg/dL Aspartate Amino Transf (AST/SGOT) 82 H 10-37 U/L Alanine Aminotransferase (ALT/SGPT) 34 12-78 U/L Alkaline Phosphatase 140 H 50-136 U/L Total Protein 5.0 L 6.0-8.3 g/dL Albumin 1.8 L 3.5-5.0 g/dL DIAGNOSTICS / RADIOLOGY RESULTS: None today PLAN Get KUB Place NGT to suction Speech therapy evaluation Keep NPO until swallow evaluation continue with Lactulose IV hydration electrolyte replacement therapy fall precautions NEURO: Minimize central acting medications as possible. Maintain fall precautions, adequate lighting during the day PULMONARY: Supplemental 02 as needed. Maintain aspiration precautions at all times CARDIOVASCULAR: Follow hemodynamics. Vital signs per facility protocol GI & NUTRITION: Continue with nutritional support. Continue stool softeners and laxatives as needed. KIDNEYS & ELECTROLYTES: Strict monitoring of intake, output and overall fluid balance. Avoid nephrotoxic medications to the extent possible. Medications to be dosed according to renal function. Monitor electrolytes and replace as needed ENDOCRINE: Maintain blood glucose between 100-180 at all times. Hypoglycemia protocol in place INFECTIOUS DISEASE: Trend temperature, WBC and procalcitonin level Follow cultures, deescalate antibiotics as soon as possible. Panculture if new onset fever ONCOLOGY/HEMATOLOGY/COAGULATION: Monitor for s/s of bleeding Monitor hemoglobin, coagulation studies as needed SKIN: Pressure ulcer prevention per facility protocol Specialty mattress ORTHO/REHAB: Continue PT/OT Prophylaxis: Continue GI and DVT prophylaxis Code Status: Full Resuscitation Disposition: TBD Other: Total patient care time exceeds 35 minutes excluding all procedures. progress note was scribed by Harsha Lackey biomedical engineering aide. I can attest to the veracity of the note. I personally scribed for RAFAEL MARTINEZ MD ([email or web address]) on 06/20/24 at 19:09. Electronically submitted by Harsha Lackey ([email or web address]). RAFAEL MARTINEZ MD Jun 20, 2024 19:09
[2024-06-21] VITALS (27 sets, daily range): BP systolic 81–136; BP diastolic 49–79; PULSE 57–134; RESP 8–30; TEMP 97.7–98.7; O2SAT 94–98
[2024-06-21 04:34] LABS: BASOPHILS # (AUTO) 0.07 K/uL (0.00-0.20); BASOPHILS % (AUTO) 0.6 % (0.0-5.0); EOSINOPHILS # (AUTO) 0.16 K/uL (0.00-0.70); EOSINOPHILS % (AUTO) 1.4 % (0.0-8.0); HEMATOCRIT 27.8 % (42-54); IMMATURE GRANULOCYTE ABSOLUTE 0.14 K/uL (0-1); LYMPHOCYTES # (AUTO) 1.3 K/uL (1.0-4.8); LYMPHOCYTES % (AUTO) 10.9 % (21.0-51.0); MEAN CORPUSCULAR HEMOGLOBIN 34.5 pg (27.0-33.0); MEAN CORPUSCULAR HGB CONC 32.7 g/dL (32.0-36.0); MEAN CORPUSCULAR VOLUME 105.3 fL (79-99); MONOCYTES % (AUTO) 8.6 % (3.0-13.0); NEUTROPHILS # (AUTO) 8.8 K/uL (1.8-7.7); NEUTROPHILS % (AUTO) 77.3 % (40.0-77.0); NUCLEATED RED BLOOD CELLS 0.2 % (0.0-0.19); PLATELET COUNT (AUTO) 194 K/uL (130-400); RED BLOOD CELL COUNT(AUTO) 2.64 MIL/uL (4.50-6.20); RED CELL DISTRIBUTION WIDTH 14.6 % (11.0-15.5); WHITE BLOOD COUNT (AUTO) 11.4 K/uL (4.8-10.8)
[2024-06-21 04:54] LABS: ALBUMIN 1.6 g/dL (3.5-5.0); BILIRUBIN,TOTAL 3.4 mg/dL (0.2-1.0); CREATININE 1.1 mg/dL (0.5-1.3); MAGNESIUM 1.9 mg/dL (1.80-2.40); POTASSIUM 3.6 mmol/L (3.5-5.1)
--- NOTE | 2024-06-21 07:46 | PN ---
[facility] PROGRESS NOTE Date of Service: Jun 21, 2024 Time of Service: 07:41 SUBJECTIVE: [06/12/24 53-year-old male who was admitted due to persistent nausea vomiting, patient also was noted with metabolic acidosis initially was placed on BiPAP support and patient decompensated immediately and was intubated. He is being managed by critical care team. He continues to be intubated on AC mode. Patient is still on pressor support. Continues with IV antibiotics, was started with furosemide 20 mg IV q.12 hours today. We will continue to monitor closely. Patient is still currently intubated. 06/13/24 Pt was seen by LEAD CONSULTANT and physician during rounding in room 206. Family member/sister at the bedside. Pt is s/p EGD today which showed non bleeding ulcers. CT Head/Brain negative. Per GI we can restart tube feedings. Pt off sedation . We will continue monitoring pt. AM labs 06/14/24 patient was seen by LEAD CONSULTANT and physician during rounding. Sister at the bedside. CT head brain is negative. Chest x-ray stable exam. Patient was already started on feeding tubes per dietary recommendations. Patient continues to be in ICU. Patient is off pressors hemodynamically stable. Patient is saturating 94% with FiO2 of 45 on vent with a rate of 18, rate on vent of 18 and has been afebrile. Patient not fully awakened and does not follow commands. Off sedation day 2. Labs reviewed. We will follow GI recommendation in regarding possible endoscopic exam. 06/15/24 patient was seen by LEAD CONSULTANT and physician during rounding in room 206. Sister at the bedside updated records to further plan. WBC today is 15.5 which has a significant increase from the prior day which was 9.6. Blood culture negative x2 for the past four days. Sputum final culture negative. Final urine culture negative. Chest x-ray stable exam. Head CT showed atrophy and chronic small- vessel ischemic changes. Patient was weaned off sedation and became very agitated overnight. The patient remains intubated and mechanically vented. ACVC rate of 12, TV 425, peep of 5 and FiO2 35%. Currently patient is off Levophed and continues to be on midodrine. Patient has a Gomez catheter in place abran color of the urine. We will continue to monitor patient in the meantime. A.m. labs 06/16/24 patient was seen by nurse practitioner physician during rounding in room 206. Family members at the bedside. Patient was evaluated by plant maintenance supervisor and at this moment patient continues to be hypotensive requiring midodrine therapy. Primary Mill Roller does not want to place patient on aspirin therapy given the risk of bleeding.His left ventricular systolic function is reduced, however no confirmed diagnosis of coronary artery disease/ischemic cardiomyopathy. When patient is extubated and shows improvement, then they would like to repeat little bit echo to re-evaluate the LVEF. Precedex was resumed and is currently RASS score of negative two.ACVC rate of 12, TV 425, peep of 5 and FiO2 35%. On the monitor, the patient is hypotensive systolic in the 80s. The patient remains with Gomez catheter in place abran color urine. We will continue to monitor patient in the meantime. A.m. labs 06/17/24 patient was seen by nurse practitioner and physician during rounding. Patient is awake and follows commands. Patient continues to be on CPAP at this moment. No pressors no Precedex. We are waiting for ICU team for possible extubation today. We will follow up. A.m. labs 06/18 patient is seen and examined at bedside, case discussed with the RN, patient is successfully extubated yesterday, was mildly restless, started on Precedex. During my visit he is awake, alert oriented x3, following commands. He is on supplemental oxygen via nasal cannula at 2 L saturating 99%. Hemodynamically stable. Patient evaluated by plant maintenance supervisor, patient admitted with a acute on chronic diastolic CHF with a LVEF 40%. Recommended to repeat limited echo to re-evaluate LVEF. Pending patient's recovery from acute illness can consider noninvasive cardiac stress testing to evaluate for ischemia. 06/19 patient seen at bedside, no acute events overnight. Patient continues with alcohol withdrawals last CIWA score of 12, continue with Precedex and alcohol withdrawal protocol. WBC increased from 13.3 up to 16.0, hemoglobin improved from 8.8 up to 9.1, sodium increased from 144 up to 147, potassium decreased from 3.6 down to 3.3, remainder of his labs are relatively unremarkable. Patient failed a swallow study several days ago, we will have speech reassess him again tomorrow. If he fails he may need placement of PEG tube. 06/20/24 patient was seen by nurse practitioner and physician during rounding in room 206. Family members/sister at the bedside. Patient continues to be on Precedex due to still being alcohol withdrawal. WBC decreased today to 11.8 from 16. Potassium 3.9. Creatinine 1.1 BUN 33 GFR 79. Patient already work with the physical therapy and they were able to transfer patient to the chair. Patient has failed speech swallow test. Today patient is pending barium swallowing test. If patient will fell patient may need PEG tube placement. GI on case. We consulted case management for possible inpatient rehab disposition. We will continue to monitor patient in the meantime. A.m. labs 06/21 Today on bedside evaluation power chart reviewed, vital signs, laboratory tests, imaging test and medications have been reviewed. Latest vitals are stable, satting 98% on room air. S/p MBSS showing severe pharyngeal dysphagia. Recommend long-term alternative means of nutrition/hydration. GI consulted for peg tube placement. Will remain NPO. Continue IV Merrem per ID's direction. Off Precedex. Continue on CIWA protocol. We will downgrade to telemetry. Discussed with primary nurse. REVIEW OF SYSTEMS 12 point review of systems negative unless noted in HPI PHYSICAL EXAM GENERAL APPEARANCE: The patient is awake, alert, and oriented, in no acute cardiopulmonary distress. NEUROLOGICAL: Cranial nerves II-XII grossly intact. Motor is 5/5 in bilateral upper and lower extremities proximal to distal. No sensory deficits. HEENT: Face is symmetric. Pupils are equal and reactive. Extraocular movements are intact. NECK: Supple. No JVD. No thyromegaly. No submental, submandibular, pre- /postauricular, occipital or supraclavicular lymphadenopathy. CHEST: Normal chest expansion. No Telemetry. LUNGS: Decreased bilateral breath sounds on the lower bases per auscultation CARDIOVASCULAR: Regular. S1 and S2 normal. No appreciable rubs, murmurs or gallops. ABDOMEN: Soft, nontender, and nondistended. There is no rebound, voluntary guarding, or rigidity. : Deferred. Gomez. EXTREMITIES: Non-edematous and not cyanotic. No clubbing. Good capillary refill. SKIN: No skin breakdown. Vital Signs (last 8hr) Date Time Temp Pulse Resp B/P (MAP) Pulse Ox O2 Delivery O2 Flow Rate FiO2 06/21/24 06:33 57 20 06/21/24 06:33 58 20 N/A Room Air 21 06/21/24 06:16 58 22 90/58 (69) 95 06/21/24 05:46 58 9 101/63 (76) 96 06/21/24 05:16 59 8 102/64 (77) 96 06/21/24 04:46 62 21 104/68 (80) 95 06/21/24 04:16 63 26 112/70 (84) 94 06/21/24 04:00 96 Room Air* 0 21 06/21/24 04:00 97.9 06/21/24 03:46 65 26 121/75 (90) 95 06/21/24 03:16 67 26 127/78 (94) 95 06/21/24 02:46 69 25 126/79 (95) 96 06/21/24 02:16 69 24 120/78 (92) 96 06/21/24 01:46 70 27 119/72 (88) 95 06/21/24 01:16 71 27 113/66 (82) 93 06/21/24 00:46 72 30 106/63 (77) 97 06/21/24 00:16 70 26 99/61 (74) 96 06/21/24 00:00 97 Room Air* 0 21 06/21/24 00:00 69 27 81/49 (60) 96 06/21/24 00:00 98.4 LABS: Laboratory: Test 06/21/24 05:18 06/21/24 04:00 06/20/24 06:12 Range/Units Whole Blood Glucose 115 H 70-110 MG/DL White Blood Count 11.4 H 4.8-10.8 K/uL Red Blood Count 2.64 L 4.50-6.20 MIL/uL Hemoglobin 9.1 L 14.0-18.0 g/dL Hematocrit 27.8 L 42-54 % Mean Corpuscular Volume 105.3 H 79-99 fL Mean Corpuscular Hemoglobin 34.5 H 27.0-33.0 pg Mean Corpuscular Hemoglobin Concent 32.7 32.0-36.0 g/dL Red Cell Distribution Width 14.6 11.0-15.5 % Platelet Count 194 130-400 K/uL Mean Platelet Volume 13.0 H 7.5-10.5 fL Immature Granulocyte % (Auto) 1.2 H 0-1 % Neutrophils (%) (Auto) 77.3 H 40.0-77.0 % Lymphocytes (%) (Auto) 10.9 L 21.0-51.0 % Monocytes (%) (Auto) 8.6 3.0-13.0 % Eosinophils (%) (Auto) 1.4 0.0-8.0 % Basophils (%) (Auto) 0.6 0.0-5.0 % Neutrophils # (Auto) 8.8 H 1.8-7.7 K/uL Lymphocytes # (Auto) 1.3 1.0-4.8 K/uL Monocytes # (Auto) 1.0 0.1-1.0 K/uL Eosinophils # (Auto) 0.16 0.00-0.70 K/uL Basophils # (Auto) 0.07 0.00-0.20 K/uL Absolute Immature Granulocyte (auto 0.14 0-1 K/uL Nucleated Red Blood Cells 0.2 H 0.0-0.19 % Sodium Level 154 H 136-145 mmol/L Potassium Level 3.6 3.5-5.1 mmol/L Chloride Level 122 *H 101-111 mmol/L Carbon Dioxide Level 19 L 21-32 mmol/L Blood Urea Nitrogen 36 H 7-18 mg/dL Creatinine 1.1 0.5-1.3 mg/dL Glomerular Filtration Rate Calc 79 >90 mL/min Random Glucose 124 H 70-105 mg/dL Total Calcium 7.9 L 8.5-10.1 mg/dL Magnesium Level 1.90 1.80-2.40 mg/dL Total Bilirubin 3.4 H 0.2-1.0 mg/dL Aspartate Amino Transf (AST/SGOT) 80 H 10-37 U/L Alanine Aminotransferase (ALT/SGPT) 39 12-78 U/L Alkaline Phosphatase 139 H 50-136 U/L Total Protein 5.0 L 6.0-8.3 g/dL Albumin 1.6 L 3.5-5.0 g/dL Ammonia < 10 L 11-32 umol/L Current Medications Medications (Trade) Dose Ordered Sig/Quan Route PRN Reason Start Time Stop Time Status Last Admin Dose Admin Acetaminophen (TYLenol 500MG TAB) 500 mg Q6H PRN PO TEMP < 101.1 AND/OR HEADACHE 06/09/24 18:00 07/09/24 17:59 06/14/24 17:35 500 MG Albumin Human 100 ml @ 50 mls/hr AD IV 06/12/24 11:00 06/14/24 10:59 DC 06/12/24 13:30 50 MLS/HR Albumin Human 250 ml @ 0 mls/hr AD IV 06/17/24 11:00 06/19/24 10:59 DC 06/17/24 10:54 250 MLS/HR Artificial Tears (Artificial Tears) 1 DROP OR AD Q8H OU 06/09/24 09:00 07/09/24 08:59 06/21/24 01:29 1 DROP Cefepime HCl (MAXipime 2 gm vial) 2 gm Q12H IVPB 06/11/24 05:00 06/18/24 15:59 DC 06/18/24 05:05 2 GM Cefepime HCl (MAXipime 2 gm vial) 2 gm Q12H IVPB 06/18/24 16:30 06/18/24 16:06 DC Cefepime HCl (MAXipime 2 gm vial) 2 gm Q12H IVPB 06/18/24 17:00 06/19/24 14:11 DC 06/19/24 02:32 2 GM Cefepime HCl (MAXipime 2 gm vial) 2 gm Q8H IVPB 06/09/24 09:00 06/10/24 19:49 DC 06/10/24 16:44 2 GM Chlorhexidine Gluconate (Peridex) 15 ml Q8H MM 06/09/24 09:00 06/23/24 08:59 06/21/24 01:29 15 ML Dexmedetomidine/ Sodium Chloride (PRECEdex 400MCG/ 100ML-NS) 400 mcg PROTOCOL IV 06/11/24 20:30 07/11/24 20:29 06/20/24 23:18 400 MCG Dextrose/Sodium Chloride 1,000 ml @ 0 mls/hr AD IV 06/09/24 10:00 06/11/24 13:29 DC Diazepam (VALium 5 mg TAB) 10 mg Q12H NG 06/18/24 16:00 06/20/24 12:51 DC 06/20/24 04:31 10 MG Diazepam (VALium 5 mg TAB) 15 mg Q12H NG 06/20/24 16:00 07/20/24 15:59 06/21/24 03:37 15 MG Fentanyl Citrate 100 ml @ 2.5 mls/hr PROTOCOL IV 06/09/24 06:30 06/12/24 13:28 DC 06/11/24 21:06 2.5 MLS/HR Folic Acid (FolVITE 5 MG/ML VIAL) 1 mg DAILY IV 06/09/24 18:00 07/09/24 17:59 06/20/24 08:16 1 MG Furosemide (LASix 20MG VIAL) 20 mg DAILY IV 06/13/24 09:00 06/13/24 09:20 DC 06/13/24 07:59 20 MG Furosemide (LASix 20MG VIAL) 20 mg DAILY IV 06/19/24 09:00 06/20/24 14:00 DC 06/20/24 08:17 20 MG Furosemide (LASix 20MG VIAL) 20 mg Q12H IV 06/09/24 12:00 06/09/24 11:26 DC Furosemide (LASix 20MG VIAL) 20 mg Q6H6 IV 06/09/24 12:00 06/12/24 07:38 DC 06/12/24 06:46 20 MG Furosemide (LASix 20MG VIAL) 40 mg Q12H IV 06/12/24 08:00 06/12/24 14:58 DC 06/12/24 08:16 40 MG Heparin Sodium/ Dextrose 250 ml @ 0 mls/hr PROTOCOL IV 06/09/24 03:30 06/09/24 09:45 DC 06/09/24 03:31 10.78 MLS/HR Insulin Human Regular (humuLIN R 100 UNIT/ML 3ML) INSULIN SLIDING SCAL... Q6H6 SQ 06/11/24 12:00 06/13/24 11:22 DC 06/13/24 06:45 6 UNIT Insulin Human Regular (humuLIN R 100 UNIT/ML 3ML) INSULIN SLIDING SCAL... Q6H6 SQ 06/13/24 12:00 07/13/24 11:59 06/17/24 00:51 6 UNIT Insulin Human Regular 100 unit/ Sodium Chloride 101 ml @ 0 mls/hr PROTOCOL IV 06/09/24 10:00 06/11/24 13:29 DC 06/09/24 11:41 1 MLS/HR Ipratropium [place] (AtrovENT UD) 0.5 MG [id number] IH 06/14/24 14:00 06/19/24 09:03 DC 06/19/24 06:21 0.5 MG Ipratropium [place] (AtrovENT UD) 0.5 MG [id number] IH 06/19/24 12:00 07/14/24 13:59 06/21/24 06:33 0.5 MG Lactated Ringer's 1,000 ml @ 50 mls/hr Q20H IV 06/13/24 09:30 06/13/24 14:44 DC 06/13/24 11:18 50 MLS/HR Lactated Ringer's 1,000 ml @ 75 mls/hr [id number] IV 06/15/24 11:00 06/17/24 09:36 DC 06/17/24 03:57 75 MLS/HR Lactated Ringer's (Lactated Ringers 1000ml) 500 ml BOLUS IV 06/15/24 10:00 06/15/24 12:31 DC 06/15/24 10:04 500 ML Lactulose (Constulose 20gm/ 30ml Udcup) 20 gm DAILY PO 06/12/24 09:00 07/12/24 08:59 06/20/24 08:16 20 GM Levofloxacin/ Dextrose (LEvaquIN 750 MG/ D5W 150 ML) 750 mg Q24H IV 06/09/24 06:30 06/09/24 08:29 DC Lorazepam (AtiVAN) 2 mg Q4H PRN IVP ALCOHOL WITHDRAWAL PROTOCOL 06/09/24 18:00 06/16/24 17:59 DC Lorazepam (AtiVAN) 4 mg Q2H PRN IVP ALCOHOL WITHDRAWAL PROTOCOL 06/09/24 18:00 06/16/24 17:59 DC Magnesium Sulfate 50 ml @ 0 mls/hr PROTOCOL IV 06/09/24 10:00 06/11/24 13:29 DC 06/11/24 07:13 25 MLS/HR Magnesium Sulfate 50 ml @ 0 mls/hr PROTOCOL PRN IV OTHER [SEE ORDER COMMENTS] 06/09/24 01:00 06/09/24 06:50 DC 06/09/24 01:03 25 MLS/HR Magnesium Sulfate 50 ml @ 0 mls/hr PROTOCOL PRN IV OTHER [SEE ORDER COMMENTS] 06/09/24 07:00 06/09/24 08:35 DC Magnesium Sulfate 50 ml @ 0 mls/hr PROTOCOL PRN IV low magnesium 06/09/24 08:30 06/09/24 09:46 DC Magnesium Sulfate 50 ml @ 0 mls/hr PROTOCOL PRN IV MAGNESIUM PROTOCOL 06/11/24 15:00 07/11/24 14:59 06/19/24 06:32 25 MLS/HR Meropenem (Merrem 1gm) 1 gm Q12H IV 06/18/24 20:00 06/18/24 16:05 DC Meropenem (Merrem 1gm) 1 gm Q12H IV 06/19/24 14:30 06/29/24 14:29 06/21/24 02:42 1 GM Meropenem (Merrem 500mg) 500 mg ONCE IV 06/18/24 16:00 06/18/24 16:01 DC Metronidazole/ Sodium Chloride 100 ml @ 100 mls/hr Q8H6 IVPB 06/09/24 14:00 06/19/24 13:59 DC 06/19/24 06:04 100 MLS/HR Midazolam HCl (Midazolam 100mg-0.9% NS 100ml) 100 ml PROTOCOL IV 06/09/24 15:30 06/12/24 10:33 DC 06/11/24 08:05 100 ML Midodrine (PROAMatine 5 MG TABLET) 10 mg TID PO 06/11/24 14:00 06/14/24 10:06 DC 06/14/24 07:47 10 MG Midodrine (PROAMatine 5 MG TABLET) 15 mg TID PO 06/14/24 14:00 07/14/24 13:59 06/20/24 20:40 15 MG Multivitamins Therapeutic (Multivitamin Tablet) 1 tab DAILY PO 06/10/24 09:00 07/10/24 08:59 06/20/24 08:17 1 TAB Norepinephrine Bitartrate (Norepineph 16 Mg/250ml NS Premix) HIGH ALERT Init... PROTOCOL IV 06/09/24 12:30 07/09/24 12:29 06/13/24 19:21 16 MG Octreotide Acetate 1250 mcg/ Sodium Chloride 250 ml @ 0 mls/hr PROTOCOL IV 06/09/24 08:30 06/13/24 13:43 DC 06/11/24 13:17 5 MLS/HR Octreotide Acetate 500 mcg/ Sodium Chloride 100 ml @ 0 mls/hr PROTOCOL IV 06/09/24 04:30 06/09/24 08:13 DC 06/09/24 05:50 5 MLS/HR Ondansetron HCl (zoFRAN 4MG INJ) 4 mg Q4H PRN IV NAUSEA 06/09/24 18:00 07/09/24 17:59 Pantoprazole Sodium (PROTonix 40MG INJ) 40 mg BID IVP 06/11/24 21:00 07/11/24 20:59 06/20/24 20:39 40 MG Pantoprazole Sodium 80 mg/ Sodium Chloride 100 ml @ 10 mls/hr Q10H IVP 06/09/24 04:00 06/11/24 13:24 DC 06/11/24 08:04 10 MLS/HR Pharmacy Profile Note (Pharmacy Communication) 1 each PROTOCOL PRN MISC ETOH Withdrawal Score changes 06/09/24 18:00 06/16/24 17:59 DC Phenylephrine HCl 10 mg/Sodium Chloride 250 ml @ 0 mls/hr PROTOCOL PRN IV PROTOCOL 06/09/24 07:00 07/09/24 06:59 06/09/24 09:27 96 MLS/HR Potassium Chloride 20 meq/ Sodium Chloride 1,010 ml @ 0 mls/hr PROTOCOL IV 06/09/24 10:00 06/11/24 13:29 DC Potassium Chloride/Dextrose/ Sod Cl 1,000 ml @ 0 mls/hr AD IV 06/09/24 10:00 06/11/24 13:29 DC Potassium Chloride 100 ml @ 50 mls/hr AD PRN IV POTASSIUM PROTOCOL 06/09/24 07:00 06/09/24 08:34 DC Potassium Chloride 100 ml @ 50 mls/hr AD PRN IV POTASSIUM PROTOCOL 06/09/24 08:30 07/09/24 08:29 06/19/24 06:31 50 MLS/HR Potassium Chloride 100 ml @ 100 mls/hr AD PRN IV POTASSIUM PROTOCOL 06/09/24 08:30 06/09/24 08:41 DC Potassium Chloride (K-Dur/Klor-Con 20meq) 20 meq AD PRN PO POTASSIUM PROTOCOL 06/09/24 08:30 07/09/24 08:29 Potassium Chloride (KCl 10% Elixir 20meq/15ml) 20 meq AD PRN PO POTASSIUM PROTOCOL 06/09/24 08:30 07/09/24 08:29 06/17/24 08:17 20 MEQ Propofol (DIPRivan 1000MG/ 100ML) 1,000 mg PROTOCOL PRN IV SEDATION 06/14/24 17:30 07/14/24 17:29 Sodium Bicarbonate 150 meq/Dextrose 1,150 ml @ 150 mls/hr Q7H40M IVP 06/09/24 00:30 06/09/24 18:11 DC 06/09/24 01:18 150 MLS/HR Sodium Chloride 250 ml @ 0 mls/hr Q0M IV 06/19/24 05:00 07/19/24 04:59 06/19/24 05:07 0 MLS/HR Sodium Chloride 500 ml @ 0 mls/hr Q0M IV 06/17/24 18:00 06/18/24 15:59 DC 06/17/24 18:26 500 MLS/HR Sodium Chloride 1,000 ml @ 75 mls/hr [id number] IV 06/17/24 18:00 06/18/24 15:59 DC 06/18/24 08:49 75 MLS/HR Sodium Chloride 1,000 ml @ 200 mls/hr PROTOCOL IV 06/09/24 10:00 06/11/24 13:29 DC Thiamine HCl (Vitamin B-1) 300 mg DAILY IV 06/09/24 18:00 07/09/24 17:59 06/20/24 08:17 300 MG Trimethoprim/ Sulfamethoxazole (BactRIM DS) 1 tab BID PO 06/21/24 09:00 07/01/24 08:59 Vancomycin HCl 250 ml @ 125 mls/hr Q12H IV 06/09/24 22:00 06/10/24 21:50 DC 06/10/24 10:06 125 MLS/HR Vancomycin HCl 250 ml @ 125 mls/hr Q24H IV 06/11/24 22:00 06/12/24 21:39 DC 06/11/24 21:10 125 MLS/HR Vancomycin HCl 250 ml @ 125 mls/hr Q24H IV 06/13/24 22:00 06/18/24 15:59 DC 06/17/24 20:15 125 MLS/HR Vancomycin HCl (Vancomycin Protocol) 1 each AD IV 06/09/24 09:00 06/18/24 15:59 DC Vasopressin 20 units/Sodium Chloride 100 ml @ 0 mls/hr PROTOCOL IV 06/09/24 07:00 07/09/24 06:59 06/09/24 08:20 9 MLS/HR Wound Care/ Dressing Products (Venelex Ointment) 1 APPL TID TP 06/14/24 21:00 07/14/24 20:59 06/20/24 20:39 1 GM DIAGNOSTICS / RADIOLOGY: [ ] ASSESSMENT: Acute respiratory failure secondary to Gram-negative pneumonia POA Septic shock secondary to Gram-negative pneumonia/hepatic encephalopathy/acute on chronic diastolic HF, resolved Alcohol withdrawals Bilateral lower lobe bacterial Gram-negative pneumonia, POA Severe pharyngeal dysphagia, POA Acute hepatic encephalopathy, resolved POA Combined alcoholic and fatty liver cirrhosis, POA MELD Score 19 points (19.6% estimated three month mortality) NSTEMI type 2, 2/2 supply and demand mismatch POA Acute on chronic Stage I Diastolic Heart Failure w/ EF of 40% POA Elevated troponin R/O ACS POA Elevated D-dimer of 3989, negative for DVT, Well score for PE 3 ( Moderate score) Metabolic acidosis POA Ascites Hepatomegaly Acute blood loss anemia POA Acute upper and lower GI bleed, POA Acute thrombocytopenia POA Acute on chronic diastolic CHF POA Hyperglycemia POA Hypomagnesemia POA Positive for THC POA Active alcohol drinker POA Acute complicated cystitis POA Hypertension POA acute GI bleed POA s/p EGD 06/13/24 non bleeding ulcer PLAN: Currently in ICU, downgraded to [facility] tele Successfully extubated 06/17. Continue supplemental O2 to keep O2 saturations above 92%, currently satting 98% on room air Continue CIWA protocol Off Precedex Continue midodrine 15mg TID, wean as able Continue lactulose 20g q24h Continue Cefepime Speech swallow study patient has failed 06/19/2024 Patient failed barium swallow test 06/20/2024 In reference to the ascites: Discussed with Adela RECIO, not a candidate for PEG tube placement palliative vs hospice. Spoke to patient's sister Ely, regarding recommendations and she will talk to patient and patient's brother Continue NPO for now Continue to follow critical care input and recommendation Repeated 2D echo LVEF is 50 to 55% no regional wall motion abnormalities noted in the views obtained. 06/18/2024 Continue IV Merrem Respiratory cultures positive for stenotrophomonas maltophilia Monitor and replace electrolytes Continue to work with physical therapy Monitor a.m. labs PRN Treatment - Add when necessary meds for nausea, vomiting, pain, constipation, insomnia. DVT/GI prophylaxis- Continue SCDs and Protonix at current doses. Full CODE STATUS This document was generated in part using voice recognition software, occasional wrong word or sound alike substitutions may have occurred due to the inherent limitations of voice recognition software. Read the chart carefully and recognize using context, where the substitutions have occurred. Although every effort was made to edit the content, pin game machine inspector and typing errors may occur This case was discussed with Dr. Byrd and above plan was formulated ATTESTATION BY PHYSICIAN I have seen and examined the patient. I reviewed the documentation, medical decision making, and treatment plan as noted by the mid-level provider above. I agree with the findings and plan of care. January Byrd MD, MARCELO O APRN Jun 21, 2024 07:46
--- NOTE | 2024-06-21 09:28 | PN ---
[facility] PROGRESS NOTE Date Patient Seen: Jun 21, 2024 Time of Visit: 09:28 Supervising Physician: Steffen Chahal MD Primary Care Physician: Self Referral, Outpatient Specialists: Inpatient Consults: Dr Mena. GABBY, Dr Hill PROBLEM LIST: Acute sepsis with septic shock, resolved Bilateral Lower Lobe Pneumonia + stenotrophomonas maltophilia ( Susceptible to Bactrim) POA Acute hepatic encephalopathy secondary to hyperammonemia Acute decompensated alcoholic liver cirrhosis, MELD score 19 Ascites secondary to above Type [address] elevation myocardial infarction Acute on chronic diastolic heart failure exacerbation Acute metabolic acidosis Thrombocytopenia Anemia of chronic disease Acute GI bleed secondary to gastric ulcer Severe protein calorie malnutrition [place] use disorder Alcohol use disorder INTERVAL HISTORY: Mr. Vickers is seen and evaluated in room 206, patient is awake alert and oriented times 2-3. Sclerae icteric. Clinical chart reviewed, events of the last 24 hours noted. Per RN report patient has failed MBSS and now with NG tube in place. abdominal pain under control today. Pending CT abdomen to rule out SBO. impression of small bowel dilation. mild bilateral pulmonary infiltrates still s een. small bilateral pleural effusions. Pt with no further nausea we will continue with bowel regimen and PT. no evidence of GI bleed in the last 24 hours, no melena or hematochezia. Pt si stable to downgrade from ICU. We will start D5 at 50 ml /hr. REVIEW OF SYSTEMS: General: No malaise or fever. Neurological: No fainting episodes or seizures. HEENT: No nasal congestion or nasal secretion. Respiratory: No cough, shortness of breath, or wheezing Cardiac: No chest pain or palpitations. Gastrointestinal: No vomiting or diarrhea. Yes for abdominal distention/ Genitourinary: No dysuria hematuria. Skin: No rashes or lesions. Hematological: No bruises or bleeding. Musculoskeletal: No joint pains yes for generalized body pain Psychiatric: No depression or panic attacks. PHYSICAL EXAM: GENERAL: Awake alert and oriented times 2-3. Generalized weakness. Recovering slowly. HEENT: Sclera non icteric, dry mucosa NECK: Supple, no JVD, trachea midline LUNGS: Diminished breath sounds bilaterally. No wheezes HEART: Regular rate and rhythm. Normal S1 and S2, without murmurs ABD:Abdomen is distended, tympanic. No rebound, no guarding EXT: No clubbing cyanosis , swelling to bilateral lower extremities. NEURO: pt is awake alert and oriented x 2-3 , GBW and generalized pain Vital Signs (last 8hr) Date Time Temp Pulse Resp B/P (MAP) Pulse Ox O2 Delivery O2 Flow Rate FiO2 06/21/24 08:17 98 Room Air* 0 21 06/21/24 07:16 66 20 104/73 (83) 99 21 06/21/24 06:46 58 21 93/66 (75) 98 21 06/21/24 06:33 57 20 06/21/24 06:33 58 20 N/A Room Air 21 06/21/24 06:16 58 22 90/58 (69) 95 06/21/24 05:46 58 9 101/63 (76) 96 06/21/24 05:16 59 8 102/64 (77) 96 06/21/24 04:46 62 21 104/68 (80) 95 06/21/24 04:16 63 26 112/70 (84) 94 06/21/24 04:00 96 Room Air* 0 21 06/21/24 04:00 97.9 06/21/24 03:46 65 26 121/75 (90) 95 06/21/24 03:16 67 26 127/78 (94) 95 06/21/24 02:46 69 25 126/79 (95) 96 06/21/24 02:16 69 24 120/78 (92) 96 06/21/24 01:46 70 27 119/72 (88) 95 LABS: Hematology Labs: Test 06/21/24 04:00 Range/Units White Blood Count 11.4 H 4.8-10.8 K/uL Red Blood Count 2.64 L 4.50-6.20 MIL/uL Hemoglobin 9.1 L 14.0-18.0 g/dL Hematocrit 27.8 L 42-54 % Mean Corpuscular Volume 105.3 H 79-99 fL Mean Corpuscular Hemoglobin 34.5 H 27.0-33.0 pg Mean Corpuscular Hemoglobin Concent 32.7 32.0-36.0 g/dL Red Cell Distribution Width 14.6 11.0-15.5 % Platelet Count 194 130-400 K/uL Mean Platelet Volume 13.0 H 7.5-10.5 fL Immature Granulocyte % (Auto) 1.2 H 0-1 % Neutrophils (%) (Auto) 77.3 H 40.0-77.0 % Lymphocytes (%) (Auto) 10.9 L 21.0-51.0 % Monocytes (%) (Auto) 8.6 3.0-13.0 % Eosinophils (%) (Auto) 1.4 0.0-8.0 % Basophils (%) (Auto) 0.6 0.0-5.0 % Neutrophils # (Auto) 8.8 H 1.8-7.7 K/uL Lymphocytes # (Auto) 1.3 1.0-4.8 K/uL Monocytes # (Auto) 1.0 0.1-1.0 K/uL Eosinophils # (Auto) 0.16 0.00-0.70 K/uL Basophils # (Auto) 0.07 0.00-0.20 K/uL Absolute Immature Granulocyte (auto 0.14 0-1 K/uL Nucleated Red Blood Cells 0.2 H 0.0-0.19 % Chemistry Labs: Test 06/21/24 05:18 06/21/24 04:00 06/20/24 06:12 Range/Units Whole Blood Glucose 115 H 70-110 MG/DL Sodium Level 154 H 136-145 mmol/L Potassium Level 3.6 3.5-5.1 mmol/L Chloride Level 122 *H 101-111 mmol/L Carbon Dioxide Level 19 L 21-32 mmol/L Blood Urea Nitrogen 36 H 7-18 mg/dL Creatinine 1.1 0.5-1.3 mg/dL Glomerular Filtration Rate Calc 79 >90 mL/min Random Glucose 124 H 70-105 mg/dL Total Calcium 7.9 L 8.5-10.1 mg/dL Magnesium Level 1.90 1.80-2.40 mg/dL Total Bilirubin 3.4 H 0.2-1.0 mg/dL Aspartate Amino Transf (AST/SGOT) 80 H 10-37 U/L Alanine Aminotransferase (ALT/SGPT) 39 12-78 U/L Alkaline Phosphatase 139 H 50-136 U/L Total Protein 5.0 L 6.0-8.3 g/dL Albumin 1.6 L 3.5-5.0 g/dL Ammonia < 10 L 11-32 umol/L DIAGNOSTICS / RADIOLOGY RESULTS: [ ] IMAGING REPORT Signed PATIENT: CHRIS VICKERS MR#: [id number] : 1970 SEX: M AGE: 53 LOCATION: 2DH ORDER 5 STATUS: ADM IN REPORT#: [id number] SERVICE 3 REASON: rule out sbo ORDERING PHYSICIAN: LARISSA ROGERS PROCEDURE: ABD PEL WO - CT ABDOMEN/PELVIS W/O CONTRAST CT ABDOMEN/PELVIS W/O CONTRAST HISTORY: Small bowel obstruction COMPARISON: 06/17/2024 TECHNIQUE: Multiple sequential axial images of the abdomen and pelvis were obtained from the dome of the diaphragm through symphysis pubis. Patient was not given contrast through intravenous route. Oral contrast was not given. FINDINGS: Small bilateral pleural effusions are seen with compressive atelectasis. Mild bilateral pulmonary infiltrates is seen. COPD changes are seen. Degenerative changes of the thoracolumbar spine are present. The heart is not enlarged. There is dextroscoliosis. Liver is enlarged with fatty changes measuring 17 cm. Spleen, adrenal glands and pancreas are unremarkable. There is no evidence of hydronephrosis bilaterally. No evidence of renal stone is seen. Fecal material is seen in the colon. There are normal size retroperitoneal and mesenteric lymph nodes. There is small to moderate ascites. Atherosclerotic changes are present. Mild small bowel dilatation is seen. Appendix is poorly seen. Pelvic sidewalls are symmetric bilaterally. Bladder is poorly distended with Gomez catheter and wall thickening. IMPRESSION: 1. Small bilateral pleural effusions with compressive atelectasis. Mild bilateral pulmonary infiltrates is seen. Cirrhotic liver with ascites. Mild small bowel dilatation is seen. CT was performed with one or more following dose reduction techniques: automated exposure control, adjustment of the mA and kv according to patient's size, or use of a iterative reconstruction technique. DICTATED BY: MAYLIN FARFAN MD DATE: 06/21/241227 ELECTRONICALLY SIGNED BY: MAYLIN FARFAN MD DATE: 06/21/241233 PLAN CT abdomen and pelvis to rule out SBO Place NGT to LIS if no sbo start tube feedings Speech therapy evaluation: MBSS COMPLETED. SILENT, AIDE ASPIRATION after the swallow with pudding thick liquids. 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 continue with Lactulose IV hydration electrolyte replacement therapy fall precautions IR paracentesis NEURO: Minimize central acting medications as possible. Maintain fall precautions, adequate lighting during the day PULMONARY: Supplemental 02 as needed. Maintain aspiration precautions at all times CARDIOVASCULAR: Follow hemodynamics. Vital signs per facility protocol GI & NUTRITION: Continue with nutritional support. Continue stool softeners and laxatives as needed. KIDNEYS & ELECTROLYTES: Strict monitoring of intake, output and overall fluid balance. Avoid nephrotoxic medications to the extent possible. Medications to be dosed according to renal function. Monitor electrolytes and replace as needed ENDOCRINE: Maintain blood glucose between 100-180 at all times. Hypoglycemia protocol in place INFECTIOUS DISEASE: Trend temperature, WBC and procalcitonin level Follow cultures, deescalate antibiotics as soon as possible. Panculture if new onset fever ONCOLOGY/HEMATOLOGY/COAGULATION: Monitor for s/s of bleeding Monitor hemoglobin, coagulation studies as needed SKIN: Pressure ulcer prevention per facility protocol Specialty mattress ORTHO/REHAB: Continue PT/OT Prophylaxis: Continue GI and DVT prophylaxis Code Status: Full Resuscitation Disposition: TBD Other: Total patient care time exceeds 35 minutes excluding all procedures. LARISSA ROGERS POWER BARKER OPERATOR Jun 21, 2024 09:28
--- NOTE | 2024-06-21 10:03 | PN ---
[facility] PROGRESS NOTE Date of Visit: Jun 21, 2024 Time of Visit: 10:03 Events / Notes: No acute events overnight. EGD with gastric ulcer. Denies fever, chills, abdominal pain, N/V, hematemesis, bloating, constipation, diarrhea, melena or hematochezia. Review of Systems: CONSTITUTIONAL: No malaise or change in sensation of wellbeing. ENMT: No rhinorrhea, otorrhea, sinus pain, ear ache. CARDIOVASCULAR: No angina, palpitations, orthopnea or paroxysmal dyspnea. RESPIRATORY: No SOB. GASTROINTESTINAL: No abdominal pain, nausea, vomiting, diarrhea, hematemesis, melena or change in the patient's habitual bowel movements consistency/number. GENITOURINARY: No dysuria, hematuria or change in bladder continence. MUSCULOSKELETAL: No new muscle pain or decrease in muscular strength. No new joint swelling, redness or tenderness. SKIN: No new rash. Physical Exam: GEN: Awake, alert, oriented in person, time and place, and in no acute distress. HEENT: No sinus tenderness. Tympanic membranes were not examined. No rhinorrhea. Oral pharyngeal mucosa is pink, moist and within normal limits. Neck is supple with no cervical lymphadenopathy, thyromegaly or JVD. CHEST: Inspection, palpation and percussion of the chest were unremarkable. Lung auscultation revealed normal breath sounds bilaterally. CARDIAC: PMI is within normal limits. Heart sounds are regular. Normal S1, S2. No gallop or murmur. ABD: Soft, non-tender and not distended. No peritoneal signs on palpation. No organomegaly. Normal bowel sounds. EXT: No cyanosis or clubbing. No edema. SKIN: Intact. No rashes. JOINTS: No evidence of synovitis or acute arthritis. NEURO: Alert and oriented to name, place and person. Cranial nerve examination is unremarkable. No focal motor deficits. Normal speech. Gait is normal. Strength is normal. Vital Signs (last 8hr) Date Time Temp Pulse Resp B/P (MAP) Pulse Ox O2 Delivery O2 Flow Rate FiO2 06/21/24 08:17 98 Room Air* 0 21 06/21/24 07:16 66 20 104/73 (83) 99 21 06/21/24 06:46 58 21 93/66 (75) 98 21 06/21/24 06:33 57 20 06/21/24 06:33 58 20 N/A Room Air 21 06/21/24 06:16 58 22 90/58 (69) 95 06/21/24 05:46 58 9 101/63 (76) 96 06/21/24 05:16 59 8 102/64 (77) 96 06/21/24 04:46 62 21 104/68 (80) 95 06/21/24 04:16 63 26 112/70 (84) 94 06/21/24 04:00 96 Room Air* 0 21 06/21/24 04:00 97.9 06/21/24 03:46 65 26 121/75 (90) 95 06/21/24 03:16 67 26 127/78 (94) 95 06/21/24 02:46 69 25 126/79 (95) 96 06/21/24 02:16 69 24 120/78 (92) 96 Laboratory: [ ] Laboratory: Test 06/21/24 05:18 06/21/24 04:00 06/20/24 06:12 Range/Units Whole Blood Glucose 115 H 70-110 MG/DL White Blood Count 11.4 H 4.8-10.8 K/uL Red Blood Count 2.64 L 4.50-6.20 MIL/uL Hemoglobin 9.1 L 14.0-18.0 g/dL Hematocrit 27.8 L 42-54 % Mean Corpuscular Volume 105.3 H 79-99 fL Mean Corpuscular Hemoglobin 34.5 H 27.0-33.0 pg Mean Corpuscular Hemoglobin Concent 32.7 32.0-36.0 g/dL Red Cell Distribution Width 14.6 11.0-15.5 % Platelet Count 194 130-400 K/uL Mean Platelet Volume 13.0 H 7.5-10.5 fL Immature Granulocyte % (Auto) 1.2 H 0-1 % Neutrophils (%) (Auto) 77.3 H 40.0-77.0 % Lymphocytes (%) (Auto) 10.9 L 21.0-51.0 % Monocytes (%) (Auto) 8.6 3.0-13.0 % Eosinophils (%) (Auto) 1.4 0.0-8.0 % Basophils (%) (Auto) 0.6 0.0-5.0 % Neutrophils # (Auto) 8.8 H 1.8-7.7 K/uL Lymphocytes # (Auto) 1.3 1.0-4.8 K/uL Monocytes # (Auto) 1.0 0.1-1.0 K/uL Eosinophils # (Auto) 0.16 0.00-0.70 K/uL Basophils # (Auto) 0.07 0.00-0.20 K/uL Absolute Immature Granulocyte (auto 0.14 0-1 K/uL Nucleated Red Blood Cells 0.2 H 0.0-0.19 % Sodium Level 154 H 136-145 mmol/L Potassium Level 3.6 3.5-5.1 mmol/L Chloride Level 122 *H 101-111 mmol/L Carbon Dioxide Level 19 L 21-32 mmol/L Blood Urea Nitrogen 36 H 7-18 mg/dL Creatinine 1.1 0.5-1.3 mg/dL Glomerular Filtration Rate Calc 79 >90 mL/min Random Glucose 124 H 70-105 mg/dL Total Calcium 7.9 L 8.5-10.1 mg/dL Magnesium Level 1.90 1.80-2.40 mg/dL Total Bilirubin 3.4 H 0.2-1.0 mg/dL Aspartate Amino Transf (AST/SGOT) 80 H 10-37 U/L Alanine Aminotransferase (ALT/SGPT) 39 12-78 U/L Alkaline Phosphatase 139 H 50-136 U/L Total Protein 5.0 L 6.0-8.3 g/dL Albumin 1.6 L 3.5-5.0 g/dL Ammonia < 10 L 11-32 umol/L Current Medications Medications (Trade) Dose Ordered Sig/Quan Route PRN Reason Start Time Stop Time Status Last Admin Dose Admin Acetaminophen (TYLenol 500MG TAB) 500 mg Q6H PRN PO TEMP < 101.1 AND/OR HEADACHE 06/09/24 18:00 07/09/24 17:59 06/14/24 17:35 500 MG Albumin Human 100 ml @ 50 mls/hr AD IV 06/12/24 11:00 06/14/24 10:59 DC 06/12/24 13:30 50 MLS/HR Albumin Human 250 ml @ 0 mls/hr AD IV 06/17/24 11:00 06/19/24 10:59 DC 06/17/24 10:54 250 MLS/HR Artificial Tears (Artificial Tears) 1 DROP OR AD Q8H OU 06/09/24 09:00 07/09/24 08:59 06/21/24 01:29 1 DROP Bisacodyl (DulcoLAX) 10 mg DAILY RC 06/22/24 09:00 06/25/24 08:59 Cefepime HCl (MAXipime 2 gm vial) 2 gm Q12H IVPB 06/11/24 05:00 06/18/24 15:59 DC 06/18/24 05:05 2 GM Cefepime HCl (MAXipime 2 gm vial) 2 gm Q12H IVPB 06/18/24 16:30 06/18/24 16:06 DC Cefepime HCl (MAXipime 2 gm vial) 2 gm Q12H IVPB 06/18/24 17:00 06/19/24 14:11 DC 06/19/24 02:32 2 GM Cefepime HCl (MAXipime 2 gm vial) 2 gm Q8H IVPB 06/09/24 09:00 06/10/24 19:49 DC 06/10/24 16:44 2 GM Chlorhexidine Gluconate (Peridex) 15 ml Q8H MM 06/09/24 09:00 06/21/24 09:21 DC 06/21/24 01:29 15 ML Dexmedetomidine/ Sodium Chloride (PRECEdex 400MCG/ 100ML-NS) 400 mcg PROTOCOL IV 06/11/24 20:30 06/21/24 09:21 DC 06/20/24 23:18 400 MCG Dextrose 1,000 ml @ 50 mls/hr Q20H IV 06/21/24 09:30 06/23/24 09:29 Dextrose/Sodium Chloride 1,000 ml @ 0 mls/hr AD IV 06/09/24 10:00 06/11/24 13:29 DC Diazepam (VALium 5 mg TAB) 10 mg Q12H NG 06/18/24 16:00 06/20/24 12:51 DC 06/20/24 04:31 10 MG Diazepam (VALium 5 mg TAB) 15 mg Q12H NG 06/20/24 16:00 07/20/24 15:59 06/21/24 03:37 15 MG Fentanyl Citrate 100 ml @ 2.5 mls/hr PROTOCOL IV 06/09/24 06:30 06/12/24 13:28 DC 06/11/24 21:06 2.5 MLS/HR Folic Acid (FolVITE 5 MG/ML VIAL) 1 mg DAILY IV 06/09/24 18:00 07/09/24 17:59 06/20/24 08:16 1 MG Furosemide (LASix 20MG VIAL) 20 mg DAILY IV 06/13/24 09:00 06/13/24 09:20 DC 06/13/24 07:59 20 MG Furosemide (LASix 20MG VIAL) 20 mg DAILY IV 06/19/24 09:00 06/20/24 14:00 DC 06/20/24 08:17 20 MG Furosemide (LASix 20MG VIAL) 20 mg Q12H IV 06/09/24 12:00 06/09/24 11:26 DC Furosemide (LASix 20MG VIAL) 20 mg Q6H6 IV 06/09/24 12:00 06/12/24 07:38 DC 06/12/24 06:46 20 MG Furosemide (LASix 20MG VIAL) 40 mg Q12H IV 06/12/24 08:00 06/12/24 14:58 DC 06/12/24 08:16 40 MG Heparin Sodium/ Dextrose 250 ml @ 0 mls/hr PROTOCOL IV 06/09/24 03:30 06/09/24 09:45 DC 06/09/24 03:31 10.78 MLS/HR Insulin Human Regular (humuLIN R 100 UNIT/ML 3ML) INSULIN SLIDING SCAL... Q6H6 SQ 06/11/24 12:00 06/13/24 11:22 DC 06/13/24 06:45 6 UNIT Insulin Human Regular (humuLIN R 100 UNIT/ML 3ML) INSULIN SLIDING SCAL... Q6H6 SQ 06/13/24 12:00 07/13/24 11:59 06/17/24 00:51 6 UNIT Insulin Human Regular 100 unit/ Sodium Chloride 101 ml @ 0 mls/hr PROTOCOL IV 06/09/24 10:00 06/11/24 13:29 DC 06/09/24 11:41 1 MLS/HR Ipratropium [place] (AtrovENT UD) 0.5 MG [id number] IH 06/14/24 14:00 06/19/24 09:03 DC 06/19/24 06:21 0.5 MG Ipratropium [place] (AtrovENT UD) 0.5 MG [id number] IH 06/19/24 12:00 07/14/24 13:59 06/21/24 06:33 0.5 MG Lactated Ringer's 1,000 ml @ 50 mls/hr Q20H IV 06/13/24 09:30 06/13/24 14:44 DC 06/13/24 11:18 50 MLS/HR Lactated Ringer's 1,000 ml @ 75 mls/hr [id number] IV 06/15/24 11:00 06/17/24 09:36 DC 06/17/24 03:57 75 MLS/HR Lactated Ringer's (Lactated Ringers 1000ml) 500 ml BOLUS IV 06/15/24 10:00 06/15/24 12:31 DC 06/15/24 10:04 500 ML Lactulose (Constulose 20gm/ 30ml Udcup) 20 gm BID PO 06/21/24 21:00 07/12/24 08:59 Lactulose (Constulose 20gm/ 30ml Udcup) 20 gm DAILY PO 06/12/24 09:00 06/21/24 09:25 DC 06/20/24 08:16 20 GM Levofloxacin/ Dextrose (LEvaquIN 750 MG/ D5W 150 ML) 750 mg Q24H IV 06/09/24 06:30 06/09/24 08:29 DC Lorazepam (AtiVAN) 2 mg Q4H PRN IVP ALCOHOL WITHDRAWAL PROTOCOL 06/09/24 18:00 06/16/24 17:59 DC Lorazepam (AtiVAN) 4 mg Q2H PRN IVP ALCOHOL WITHDRAWAL PROTOCOL 06/09/24 18:00 06/16/24 17:59 DC Magnesium Sulfate 50 ml @ 0 mls/hr PROTOCOL IV 06/09/24 10:00 06/11/24 13:29 DC 06/11/24 07:13 25 MLS/HR Magnesium Sulfate 50 ml @ 0 mls/hr PROTOCOL PRN IV OTHER [SEE ORDER COMMENTS] 06/09/24 01:00 06/09/24 06:50 DC 06/09/24 01:03 25 MLS/HR Magnesium Sulfate 50 ml @ 0 mls/hr PROTOCOL PRN IV OTHER [SEE ORDER COMMENTS] 06/09/24 07:00 06/09/24 08:35 DC Magnesium Sulfate 50 ml @ 0 mls/hr PROTOCOL PRN IV low magnesium 06/09/24 08:30 06/09/24 09:46 DC Magnesium Sulfate 50 ml @ 0 mls/hr PROTOCOL PRN IV MAGNESIUM PROTOCOL 06/11/24 15:00 07/11/24 14:59 06/19/24 06:32 25 MLS/HR Meropenem (Merrem 1gm) 1 gm Q12H IV 06/18/24 20:00 06/18/24 16:05 DC Meropenem (Merrem 1gm) 1 gm Q12H IV 06/19/24 14:30 06/29/24 14:29 06/21/24 02:42 1 GM Meropenem (Merrem 500mg) 500 mg ONCE IV 06/18/24 16:00 06/18/24 16:01 DC Metronidazole/ Sodium Chloride 100 ml @ 100 mls/hr Q8H6 IVPB 06/09/24 14:00 06/19/24 13:59 DC 06/19/24 06:04 100 MLS/HR Midazolam HCl (Midazolam 100mg-0.9% NS 100ml) 100 ml PROTOCOL IV 06/09/24 15:30 06/12/24 10:33 DC 06/11/24 08:05 100 ML Midodrine (PROAMatine 5 MG TABLET) 10 mg TID PO 06/11/24 14:00 06/14/24 10:06 DC 06/14/24 07:47 10 MG Midodrine (PROAMatine 5 MG TABLET) 15 mg TID PO 06/14/24 14:00 07/14/24 13:59 06/20/24 20:40 15 MG Multivitamins Therapeutic (Multivitamin Tablet) 1 tab DAILY PO 06/10/24 09:00 07/10/24 08:59 06/20/24 08:17 1 TAB Norepinephrine Bitartrate (Norepineph 16 Mg/250ml NS Premix) HIGH ALERT Init... PROTOCOL IV 06/09/24 12:30 06/21/24 09:21 DC 06/13/24 19:21 16 MG Octreotide Acetate 1250 mcg/ Sodium Chloride 250 ml @ 0 mls/hr PROTOCOL IV 06/09/24 08:30 06/13/24 13:43 DC 06/11/24 13:17 5 MLS/HR Octreotide Acetate 500 mcg/ Sodium Chloride 100 ml @ 0 mls/hr PROTOCOL IV 06/09/24 04:30 06/09/24 08:13 DC 06/09/24 05:50 5 MLS/HR Ondansetron HCl (zoFRAN 4MG INJ) 4 mg Q4H PRN IV NAUSEA 06/09/24 18:00 07/09/24 17:59 Pantoprazole Sodium (PROTonix 40MG INJ) 40 mg BID IVP 06/11/24 21:00 07/11/24 20:59 06/20/24 20:39 40 MG Pantoprazole Sodium 80 mg/ Sodium Chloride 100 ml @ 10 mls/hr Q10H IVP 06/09/24 04:00 06/11/24 13:24 DC 06/11/24 08:04 10 MLS/HR Pharmacy Profile Note (Pharmacy Communication) 1 each PROTOCOL PRN MISC ETOH Withdrawal Score changes 06/09/24 18:00 06/16/24 17:59 DC Phenylephrine HCl 10 mg/Sodium Chloride 250 ml @ 0 mls/hr PROTOCOL PRN IV PROTOCOL 06/09/24 07:00 07/09/24 06:59 06/09/24 09:27 96 MLS/HR Potassium Chloride 20 meq/ Sodium Chloride 1,010 ml @ 0 mls/hr PROTOCOL IV 06/09/24 10:00 06/11/24 13:29 DC Potassium Chloride/Dextrose/ Sod Cl 1,000 ml @ 0 mls/hr AD IV 06/09/24 10:00 06/11/24 13:29 DC Potassium Chloride 100 ml @ 50 mls/hr AD PRN IV POTASSIUM PROTOCOL 06/09/24 07:00 06/09/24 08:34 DC Potassium Chloride 100 ml @ 50 mls/hr AD PRN IV POTASSIUM PROTOCOL 06/09/24 08:30 07/09/24 08:29 06/19/24 06:31 50 MLS/HR Potassium Chloride 100 ml @ 100 mls/hr AD PRN IV POTASSIUM PROTOCOL 06/09/24 08:30 06/09/24 08:41 DC Potassium Chloride (K-Dur/Klor-Con 20meq) 20 meq AD PRN PO POTASSIUM PROTOCOL 06/09/24 08:30 07/09/24 08:29 Potassium Chloride (KCl 10% Elixir 20meq/15ml) 20 meq AD PRN PO POTASSIUM PROTOCOL 06/09/24 08:30 07/09/24 08:29 06/17/24 08:17 20 MEQ Propofol (DIPRivan 1000MG/ 100ML) 1,000 mg PROTOCOL PRN IV SEDATION 06/14/24 17:30 06/21/24 09:21 DC Sodium Bicarbonate 150 meq/Dextrose 1,150 ml @ 150 mls/hr Q7H40M IVP 06/09/24 00:30 06/09/24 18:11 DC 06/09/24 01:18 150 MLS/HR Sodium Chloride 250 ml @ 0 mls/hr Q0M IV 06/19/24 05:00 06/21/24 09:21 DC 06/19/24 05:07 0 MLS/HR Sodium Chloride 500 ml @ 0 mls/hr Q0M IV 06/17/24 18:00 06/18/24 15:59 DC 06/17/24 18:26 500 MLS/HR Sodium Chloride 1,000 ml @ 75 mls/hr [id number] IV 06/17/24 18:00 06/18/24 15:59 DC 06/18/24 08:49 75 MLS/HR Sodium Chloride 1,000 ml @ 200 mls/hr PROTOCOL IV 06/09/24 10:00 06/11/24 13:29 DC Thiamine HCl (Vitamin B-1) 300 mg DAILY IV 06/09/24 18:00 07/09/24 17:59 06/20/24 08:17 300 MG Trimethoprim/ Sulfamethoxazole (BactRIM DS) 1 tab BID PO 06/21/24 09:00 07/01/24 08:59 Vancomycin HCl 250 ml @ 125 mls/hr Q12H IV 06/09/24 22:00 06/10/24 21:50 DC 06/10/24 10:06 125 MLS/HR Vancomycin HCl 250 ml @ 125 mls/hr Q24H IV 06/11/24 22:00 06/12/24 21:39 DC 06/11/24 21:10 125 MLS/HR Vancomycin HCl 250 ml @ 125 mls/hr Q24H IV 06/13/24 22:00 06/18/24 15:59 DC 06/17/24 20:15 125 MLS/HR Vancomycin HCl (Vancomycin Protocol) 1 each AD IV 06/09/24 09:00 06/18/24 15:59 DC Vasopressin 20 units/Sodium Chloride 100 ml @ 0 mls/hr PROTOCOL IV 06/09/24 07:00 07/09/24 06:59 06/09/24 08:20 9 MLS/HR Wound Care/ Dressing Products (Venelex Ointment) 1 APPL TID TP 06/14/24 21:00 07/14/24 20:59 06/20/24 20:39 1 GM Diagnostics / Radiology: [COPY/PASTE HERE IF NO REPORTS PLEASE DELETE SECTION] Assessment: Gastric ulcer Acute blood loss anemia Cirrhosis Plan: Patient is not a candidate for PEG given known ascites- high risk for peritonitis. can consider surgery for open g tube; however, also high risk. Consider palliative/hospice Continue GI prophylaxis Avoid NSAIDs Antireflux measures Monitor H&H and transfuse as needed Call with questions, concerns or change in clinical status Patient to follow-up at clinic post discharge Thank you for this consult LISA FRASER Jun 21, 2024 10:03
[2024-06-21] MEDS: LACTULOSE 20 GM/30 ML UDCUP PO SCH (10:07)
[2024-06-21] MEDS: DEXTROSE 5%-WATER 1,000 ML IV SCH (10:08)
[2024-06-21] MEDS: sulfaMETHOX-TMP DS 800/160 TAB PO SCH (10:08)
--- NOTE | 2024-06-21 12:34 | HMCIMG ---
CT ABDOMEN/PELVIS W/O CONTRAST HISTORY: Small bowel obstruction COMPARISON: 06/17/2024 TECHNIQUE: Multiple sequential axial images of the abdomen and pelvis were obtained from the dome of the diaphragm through symphysis pubis. Patient was not given contrast through intravenous route. Oral contrast was not given. FINDINGS: Small bilateral pleural effusions are seen with compressive atelectasis. Mild bilateral pulmonary infiltrates is seen. COPD changes are seen. Degenerative changes of the thoracolumbar spine are present. The heart is not enlarged. There is dextroscoliosis. Liver is enlarged with fatty changes measuring 17 cm. Spleen, adrenal glands and pancreas are unremarkable. There is no evidence of hydronephrosis bilaterally. No evidence of renal stone is seen. Fecal material is seen in the colon. There are normal size retroperitoneal and mesenteric lymph nodes. There is small to moderate ascites. Atherosclerotic changes are present. Mild small bowel dilatation is seen. Appendix is poorly seen. Pelvic sidewalls are symmetric bilaterally. Bladder is poorly distended with Gomez catheter and wall thickening. IMPRESSION: 1. Small bilateral pleural effusions with compressive atelectasis. Mild bilateral pulmonary infiltrates is seen. Cirrhotic liver with ascites. Mild small bowel dilatation is seen. CT was performed with one or more following dose reduction techniques: automated exposure control, adjustment of the mA and kv according to patient's size, or use of a iterative reconstruction technique.
--- NOTE | 2024-06-21 15:51 | NUR ---
CM NOTE CM received call from patient's sister Ely. [facility] palliative care was recommended and asked CM questions regarding hospice care. States she is going to discuss plan with her brother and patient. States she will call CM back once they have reached a decision. CM to f/u.
--- NOTE | 2024-06-21 20:00 | NUR ---
Paged radiation control specialist for hospitalist to clarify tube feeding order. Diamond Hernández answered page. Informed of CT results from today stating a small bowel dilation and that pt has bowel sounds and is having bowel movements. Ordered to restart tube feeding at 10mL\h and to check for residual every 6hours. Repeated back orders.
--- NOTE | 2024-06-21 21:43 | PN ---
Acute sepsis with septic shock Bilateral lower lobe pneumonia on admission secondary to aspiration Pneumonia with positive gram negative rods Acute hepatic encephalopathy secondary to hyperammonemia Acute decompensated alcoholic liver cirrhosis, MELD score 19 Ascites secondary to above Elevated troponin Acute on chronic diastolic heart failure exacerbation Acute metabolic acidosis Thrombocytopenia Anemia of chronic disease Acute GI bleed secondary to gastric ulcer Severe protein calorie malnutrition [place] use disorder Alcohol use disorder Chart is reviewed. Records have not been received from previous hospitalization elsewhere. GI notes make reference to cirrhosis and acute blood loss anemia, and the patient has hepatic encephalopathy. Now he has significant hypernatremia with sodium in the mid 150 range, but BNP has fallen from 1500-490 range. Respiration is nonlabored and there is no JVD or edema at present. Mental status remains abnormal. Impression and plan: Heart failure seems to have stabilized and GI issues are being addressed. We will await records from elsewhere. Vitals/Labs Vital Signs Date Time Temp Pulse Resp B/P (MAP) Pulse Ox O2 Delivery O2 Flow Rate FiO2 06/21/24 19:24 58 20 06/21/24 17:21 98.8 136/65 98 Nasal Cannula 2.0 06/21/24 08:17 21 Laboratory Tests 06/21/24 04:00 Medications Current Medications Furosemide 40 mg ONCE ONCE IV Last administered on 06/09/24at 00:55; Start 06/09/24 at 00:30; Stop 06/09/24 at 00:31; Status DC Magnesium Sulfate 50 ml @ As Directed STK-MED ONCE IV; Start 06/09/24 at 00:24; Stop 06/09/24 at 00:29; Status DC Diazepam 5 mg ONCE ONCE IVP Last administered on 06/09/24at 00:58; Start 06/09/24 at 00:30; Stop 06/09/24 at 00:36; Status DC Sodium Bicarbonate 150 meq/Dextrose 1,150 ml @ 150 mls/hr [id number] IVP Last administered on 06/09/24at 01:18; Start 06/09/24 at 00:30; Stop 06/09/24 at 18:11; Status DC Sodium Bicarbonate 50 meq ONCE ONCE IV Last administered on 06/09/24at 00:56; Start 06/09/24 at 00:30; Stop 06/09/24 at 00:36; Status DC Sodium Bicarbonate 0 ml @ As Directed STK-MED ONCE .ROUTE; Start 06/09/24 at 00:35; Stop 06/09/24 at 00:36; Status DC Diazepam 10 mg STK-MED ONCE .ROUTE; Start 06/09/24 at 00:36; Stop 06/09/24 at 00:37; Status DC Magnesium Sulfate 50 ml @ 0 mls/hr PROTOCOL PRN IV Last administered on 06/09/24at 01:03; Start 06/09/24 at 01:00; Stop 06/09/24 at 06:50; Status DC Heparin Sodium/ Dextrose 250 ml @ 0 mls/hr PROTOCOL IV Last administered on 06/09/24at 03:31; Start 06/09/24 at 03:30; Stop 06/09/24 at 09:45; Status DC Heparin Sodium (Porcine) 5,000 unit ONCE ONCE IV Last administered on 06/09/24at 03:27; Start 06/09/24 at 03:30; Stop 06/09/24 at 03:31; Status DC Pantoprazole Sodium 80 mg/ Sodium Chloride 100 ml @ 10 mls/hr Q10H IVP Last administered on 06/11/24at 08:04; Start 06/09/24 at 04:00; Stop 06/11/24 at 13:24; Status DC Pantoprazole Sodium 40 mg ONCE ONCE IVP Last administered on 06/09/24at 04:26; Start 06/09/24 at 04:00; Stop 06/09/24 at 04:01; Status DC Octreotide Acetate 500 mcg/ Sodium Chloride 100 ml @ 0 mls/hr PROTOCOL IV Last administered on 06/09/24at 05:50; Start 06/09/24 at 04:30; Stop 06/09/24 at 08:13; Status DC Octreotide Acetate 50 mcg ONCE ONCE IV Last administered on 06/09/24at 04:26; Start 06/09/24 at 04:30; Stop 06/09/24 at 04:31; Status DC Sodium Chloride 1,000 ml @ 500 mls/hr Q2H ONCE IV Last administered on 06/09/24at 05:03; Start 06/09/24 at 05:00; Stop 06/09/24 at 06:59; Status DC Sodium Chloride 1,000 ml @ As Directed STK-MED ONCE IV; Start 06/09/24 at 05:00; Stop 06/09/24 at 05:00; Status DC Fentanyl Citrate 100 ml @ As Directed STK-MED ONCE IV; Start 06/09/24 at 06:05; Stop 06/09/24 at 06:05; Status DC Ketamine HCl 50 mg STK-MED ONCE .ROUTE; Start 06/09/24 at 06:06; Stop 06/09/24 at 06:06; Status DC Midazolam HCl 100 ml ONCE ONCE IV Last administered on 06/09/24at 08:17; Start 06/09/24 at 06:30; Stop 06/09/24 at 06:59; Status DC Fentanyl Citrate 100 ml @ 2.5 mls/hr PROTOCOL IV Last administered on 06/11/24at 21:06; Start 06/09/24 at 06:30; Stop 06/12/24 at 13:28; Status DC Ketamine HCl 100 mg ONCE ONCE IM; Start 06/09/24 at 06:30; Stop 06/09/24 at 06:31; Status DC Pharmacy Profile Note 1 each ONCE ONCE MISC; Start 06/09/24 at 06:30; Stop 06/09/24 at 07:00; Status DC Rocuronium [place] 50 mg STK-MED ONCE .ROUTE; Start 06/09/24 at 06:06; Stop 06/09/24 at 06:06; Status DC Norepinephrine 250 ml @ As Directed STK-MED ONCE IV; Start 06/09/24 at 06:16; Stop 06/09/24 at 06:16; Status DC Levofloxacin/ Dextrose 750 mg Q24H IV; Start 06/09/24 at 06:30; Stop 06/09/24 at 08:29; Status DC Potassium Chloride 100 ml @ 50 mls/hr AD PRN IV; Start 06/09/24 at 07:00; Stop 06/09/24 at 08:34; Status DC Magnesium Sulfate 50 ml @ 0 mls/hr PROTOCOL PRN IV; Start 06/09/24 at 07:00; Stop 06/09/24 at 08:35; Status DC Phenylephrine HCl 10 mg/Sodium Chloride 250 ml @ 0 mls/hr PROTOCOL PRN IV Last administered on 06/09/24at 09:27; Start 06/09/24 at 07:00; Stop 07/09/24 at 06:59 Vasopressin 20 units STK-MED ONCE .ROUTE; Start 06/09/24 at 06:42; Stop 06/09/24 at 06:42; Status DC Vasopressin 20 units/Sodium Chloride 100 ml @ 0 mls/hr PROTOCOL IV Last administered on 06/09/24at 08:20; Start 06/09/24 at 07:00; Stop 07/09/24 at 06:59 Furosemide 20 mg Q12H IV; Start 06/09/24 at 12:00; Stop 06/09/24 at 11:26; Status DC Octreotide Acetate 1250 mcg/ Sodium Chloride 250 ml @ 0 mls/hr PROTOCOL IV Last administered on 06/11/24at 13:17; Start 06/09/24 at 08:30; Stop 06/13/24 at 13:43; Status DC Potassium Chloride 100 ml @ 100 mls/hr AD PRN IV; Start 06/09/24 at 08:30; Stop 06/09/24 at 08:41; Status DC Potassium Chloride 20 meq AD PRN PO Last administered on 06/17/24at 08:17; Start 06/09/24 at 08:30; Stop 07/09/24 at 08:29 Potassium Chloride 20 meq AD PRN PO; Start 06/09/24 at 08:30; Stop 07/09/24 at 08:29 Potassium Chloride 100 ml @ 50 mls/hr AD PRN IV Last administered on 06/19/24at 06:31; Start 06/09/24 at 08:30; Stop 07/09/24 at 08:29 Magnesium Sulfate 50 ml @ 0 mls/hr PROTOCOL PRN IV; Start 06/09/24 at 08:30; Stop 06/09/24 at 09:46; Status DC Vancomycin HCl 1 each AD IV; Start 06/09/24 at 09:00; Stop 06/18/24 at 15:59; Status DC Cefepime HCl 2 gm Q8H IVPB Last administered on 06/10/24at 16:44; Start 06/09/24 at 09:00; Stop 06/10/24 at 19:49; Status DC Metronidazole/ Sodium Chloride 100 ml @ 100 mls/hr Q8H6 IVPB Last administered on 06/19/24at 06:04; Start 06/09/24 at 14:00; Stop 06/19/24 at 13:59; Status DC Chlorhexidine Gluconate 15 ml Q8H MM Last administered on 06/21/24at 01:29; Start 06/09/24 at 09:00; Stop 06/21/24 at 09:21; Status DC Artificial Tears 1 DROP OR AD Q8H OU Last administered on 06/21/24at 10:09; Start 06/09/24 at 09:00; Stop 07/09/24 at 08:59 Vancomycin HCl 250 ml @ 125 mls/hr ONCE ONCE IV Last administered on 06/09/24at 11:19; Start 06/09/24 at 09:00; Stop 06/09/24 at 10:59; Status DC Vancomycin HCl 250 ml @ 125 mls/hr Q12H IV Last administered on 06/10/24at 10:06; Start 06/09/24 at 22:00; Stop 06/10/24 at 21:50; Status DC Sodium Bicarbonate 50 ml @ As Directed STK-MED ONCE .ROUTE; Start 06/09/24 at 09:40; Stop 06/09/24 at 09:40; Status DC Sodium Bicarbonate 100 meq ONCE ONCE IV; Start 06/09/24 at 10:00; Stop 06/09/24 at 09:45; Status DC Potassium Chloride 20 meq ONCE ONCE PO; Start 06/09/24 at 10:00; Stop 06/09/24 at 10:01; Status DC Sodium Chloride 1,000 ml @ 200 mls/hr PROTOCOL IV; Start 06/09/24 at 10:00; Stop 06/11/24 at 13:29; Status DC Potassium Chloride/Dextrose/ Sod Cl 1,000 ml @ 0 mls/hr AD IV; Start 06/09/24 at 10:00; Stop 06/11/24 at 13:29; Status DC Potassium Chloride 20 meq/ Sodium Chloride 1,010 ml @ 0 mls/hr PROTOCOL IV; Start 06/09/24 at 10:00; Stop 06/11/24 at 13:29; Status DC Magnesium Sulfate 50 ml @ 0 mls/hr PROTOCOL IV Last administered on 06/11/24at 07:13; Start 06/09/24 at 10:00; Stop 06/11/24 at 13:29; Status DC Insulin Human Regular 100 unit/ Sodium Chloride 101 ml @ 0 mls/hr PROTOCOL IV Last administered on 06/09/24at 11:41; Start 06/09/24 at 10:00; Stop 06/11/24 at 13:29; Status DC Dextrose/Sodium Chloride 1,000 ml @ 0 mls/hr AD IV; Start 06/09/24 at 10:00; Stop 06/11/24 at 13:29; Status DC Sodium Bicarbonate 50 meq ONCE ONCE IV Last administered on 06/09/24at 11:20; Start 06/09/24 at 10:00; Stop 06/09/24 at 10:01; Status DC Furosemide 20 mg Q6H6 IV Last administered on 06/12/24at 06:46; Start 06/09/24 at 12:00; Stop 06/12/24 at 07:38; Status DC Norepinephrine 250 ml @ As Directed STK-MED ONCE IV; Start 06/09/24 at 12:03; Stop 06/09/24 at 12:04; Status DC Norepinephrine Bitartrate HIGH ALERT Init... PROTOCOL IV Last administered on 06/13/24at 19:21; Start 06/09/24 at 12:30; Stop 06/21/24 at 09:21; Status DC Pantoprazole Sodium 40 mg STK-MED ONCE .ROUTE; Start 06/09/24 at 12:19; Stop 06/09/24 at 12:19; Status DC Iohexol 75 ml STK-MED ONCE IV; Start 06/09/24 at 13:45; Stop 06/09/24 at 13:49; Status DC Midazolam HCl 100 ml PROTOCOL IV Last administered on 06/11/24at 08:05; Start 06/09/24 at 15:30; Stop 06/12/24 at 10:33; Status DC Lorazepam 2 mg Q4H PRN IVP; Start 06/09/24 at 18:00; Stop 06/16/24 at 17:59; Status DC Lorazepam 4 mg Q2H PRN IVP; Start 06/09/24 at 18:00; Stop 06/16/24 at 17:59; Status DC Ondansetron HCl 4 mg Q4H PRN IV; Start 06/09/24 at 18:00; Stop 07/09/24 at 17:59 Acetaminophen 500 mg Q6H PRN PO Last administered on 06/14/24at 17:35; Start 06/09/24 at 18:00; Stop 07/09/24 at 17:59 Multivitamins Therapeutic 1 tab DAILY PO Last administered on 06/21/24at 10:08; Start 06/10/24 at 09:00; Stop 07/10/24 at 08:59 Pharmacy Profile Note 1 each [facility]; Start 06/09/24 at 18:00; Stop 06/16/24 at 17:59; Status DC Thiamine HCl 300 mg DAILY IV Last administered on 06/21/24at 10:06; Start 06/09/24 at 18:00; Stop 07/09/24 at 17:59 Folic Acid 1 mg DAILY IV Last administered on 06/21/24at 10:58; Start 06/09/24 at 18:00; Stop 07/09/24 at 17:59 Lactated Ringer's 500 ml BOLUS ONCE IV; Start 06/10/24 at 03:30; Stop 06/10/24 at 03:50; Status DC Lactulose 200 gm ONCE ONCE GA Last administered on 06/10/24at 11:11; Start 06/10/24 at 10:00; Stop 06/10/24 at 10:01; Status DC Cefepime HCl 2 gm Q12H IVPB Last administered on 06/18/24at 05:05; Start 06/11/24 at 05:00; Stop 06/18/24 at 15:59; Status DC Vancomycin HCl 250 ml @ 125 mls/hr Q24H IV Last administered on 06/11/24at 21:10; Start 06/11/24 at 22:00; Stop 06/12/24 at 21:39; Status DC Insulin Human Regular INSULIN SLIDING SCAL... Q6H6 SQ Last administered on 06/13/24at 06:45; Start 06/11/24 at 12:00; Stop 06/13/24 at 11:22; Status DC Midodrine 10 mg TID PO Last administered on 06/14/24at 07:47; Start 06/11/24 at 14:00; Stop 06/14/24 at 10:06; Status DC Lactulose 20 gm DAILY PO Last administered on 06/20/24at 08:16; Start 06/12/24 at 09:00; Stop 06/21/24 at 09:25; Status DC Pantoprazole Sodium 40 mg BID IVP Last administered on 06/21/24at 10:05; Start 06/11/24 at 21:00; Stop 07/11/24 at 20:59 Magnesium Sulfate 50 ml @ 0 mls/hr PROTOCOL PRN IV Last administered on 06/19/24at 06:32; Start 06/11/24 at 15:00; Stop 07/11/24 at 14:59 Dexmedetomidine/ Sodium Chloride 400 mcg PROTOCOL IV Last administered on 06/20/24at 23:18; Start 06/11/24 at 20:30; Stop 06/21/24 at 09:21; Status DC Furosemide 40 mg Q12H IV Last administered on 06/12/24 08:16; Start 06/12/24 at 08:00; Stop 06/12/24 at 14:58; Status DC Albumin Human 100 ml @ 50 mls/hr AD IV Last administered on 06/12/24at 13:30; Start 06/12/24 at 11:00; Stop 06/14/24 at 10:59; Status DC Furosemide 20 mg DAILY IV Last administered on 06/13/24at 07:59; Start 06/13/24 at 09:00; Stop 06/13/24 at 09:20; Status DC Vancomycin HCl 250 ml @ 125 mls/hr Q24H IV Last administered on 06/17/24at 20:15; Start 06/13/24 at 22:00; Stop 06/18/24 at 15:59; Status DC Lactated Ringer's 1,000 ml @ 50 mls/hr Q20H IV Last administered on 06/13/24at 11:18; Start 06/13/24 at 09:30; Stop 06/13/24 at 14:44; Status DC Insulin Human Regular INSULIN SLIDING SCAL... Q6H6 SQ Last administered on 06/17/24at 00:51; Start 06/13/24 at 12:00; Stop 07/13/24 at 11:59 Fentanyl Citrate 100 mcg STK-MED ONCE .ROUTE; Start 06/13/24 at 12:57; Stop 06/13/24 at 12:59; Status DC Midazolam HCl 2 mg STK-MED ONCE .ROUTE; Start 06/13/24 at 12:57; Stop 06/13/24 at 12:59; Status DC Midazolam HCl 2 mg ONCE ONCE IVP Last administered on 2/3/25at 15:01; Start 06/13/24 at 14:00; Stop 06/13/24 at 14:01; Status DC Fentanyl Citrate 100 mcg ONCE ONCE IVP Last administered on 06/13/24at 15:01; Start 06/13/24 at 14:00; Stop 06/13/24 at 14:01; Status DC Dexmedetomidine/ Sodium Chloride 400 mcg STK-MED ONCE IV; Start 06/13/24 at 22:43; Stop 06/13/24 at 22:43; Status DC Midodrine 15 mg TID PO Last administered on 06/21/24at 14:54; Start 06/14/24 at 14:00; Stop 07/14/24 at 13:59 Ipratropium [place] 0.5 MG Q0FIDID IH Last administered on 06/19/24 06:21; Start 06/14/24 at 14:00; Stop 06/19/24 at 09:03; Status DC Midodrine 5 mg ONCE ONCE PO Last administered on 06/14/24 10:42; Start 06/14/24 at 11:00; Stop 06/14/24 at 11:01; Status DC Wound Care/ Dressing Products 1 APPL TID TP Last administered on 06/21/24 15:35; Start 06/14/24 at 21:00; Stop 07/14/24 at 20:59 Propofol 100 ml @ As Directed STK-MED ONCE IV Last administered on 06/14/24 17:37; Start 06/14/24 at 17:10; Stop 06/14/24 at 17:10; Status DC Propofol 1,000 mg PROTOCOL PRN IV; Start 06/14/24 at 17:30; Stop 06/21/24 at 09:21; Status DC Lactated Ringer's 500 ml BOLUS IV Last administered on 06/15/24at 10:04; Start 06/15/24 at 10:00; Stop 06/15/24 at 12:31; Status DC Lactated Ringer's 1,000 ml @ 75 mls/hr [id number] IV Last administered on 06/17/24at 03:57; Start 06/15/24 at 11:00; Stop 06/17/24 at 09:36; Status DC Sodium Chloride 4 ml STK-MED ONCE IH Last administered on 06/17/24at 02:49; Start 06/16/24 at 22:49; Stop 06/16/24 at 22:49; Status DC Albumin Human 250 ml @ 0 mls/hr AD IV Last administered on 06/17/24at 10:54; Start 06/17/24 at 11:00; Stop 06/19/24 at 10:59; Status DC Diatrizoate [place]/ Diatrizoate Sod 30 ml STK-MED ONCE .ROUTE; Start 06/17/24 at 16:22; Stop 06/17/24 at 16:22; Status DC Sodium Chloride 1,000 ml @ 75 mls/hr [id number] IV Last administered on 06/18/24at 08:49; Start 06/17/24 at 18:00; Stop 06/18/24 at 15:59; Status DC Sodium Chloride 500 ml @ 0 mls/hr Q0M IV Last administered on 06/17/24at 18:26; Start 06/17/24 at 18:00; Stop 06/18/24 at 15:59; Status DC Morphine Sulfate 2 mg ONCE ONCE IVP; Start 06/17/24 at 21:30; Stop 06/17/24 at 21:31; Status DC Morphine Sulfate 2 mg STK-MED ONCE .ROUTE Last administered on 06/17/24at 21:22; Start 06/17/24 at 21:21; Stop 06/17/24 at 21:21; Status DC Lorazepam 1 mg ONCE ONCE IVP; Start 06/18/24 at 03:30; Stop 06/18/24 at 03:36; Status DC Lorazepam 2 mg STK-MED ONCE .ROUTE Last administered on 06/18/24at 03:30; Start 06/18/24 at 03:23; Stop 06/18/24 at 03:29; Status DC Meropenem 1 gm Q12H IV; Start 06/18/24 at 20:00; Stop 06/18/24 at 16:05; Status DC Meropenem 500 mg ONCE IV; Start 06/18/24 at 16:00; Stop 06/18/24 at 16:01; Status DC Diazepam 10 mg Q12H NG Last administered on 06/20/24at 04:31; Start 06/18/24 at 16:00; Stop 06/20/24 at 12:51; Status DC Cefepime HCl 2 gm Q12H IVPB; Start 06/18/24 at 16:30; Stop 06/18/24 at 16:06; Status DC Cefepime HCl 2 gm Q12H IVPB Last administered on 06/19/24at 02:32; Start 06/18/24 at 17:00; Stop 06/19/24 at 14:11; Status DC Furosemide 20 mg DAILY IV Last administered on 06/20/24at 08:17; Start 06/19/24 at 09:00; Stop 06/20/24 at 14:00; Status DC Furosemide 20 mg ONCE ONCE IV Last administered on 06/18/24at 16:33; Start 06/18/24 at 16:30; Stop 06/18/24 at 16:31; Status DC Sodium Chloride 250 ml @ 0 mls/hr Q0M IV Last administered on 06/19/24at 05:07; Start 06/19/24 at 05:00; Stop 06/21/24 at 09:21; Status DC Acetaminophen 650 mg ONCE ONCE PO Last administered on 06/19/24at 05:06; Start 06/19/24 at 05:00; Stop 06/19/24 at 05:01; Status DC Ipratropium [place] 0.5 MG [id number] IH Last administered on 06/21/24at 19:24; Start 06/19/24 at 12:00; Stop 07/14/24 at 13:59 Meropenem 1 gm Q12H IV Last administered on 06/21/24at 14:54; Start 06/19/24 at 14:30; Stop 06/29/24 at 14:29 Diazepam 15 mg Q12H NG Last administered on 06/21/24at 14:54; Start 06/20/24 at 16:00; Stop 07/20/24 at 15:59 Trimethoprim/ Sulfamethoxazole 1 tab BID PO Last administered on 06/21/24at 10:08; Start 06/21/24 at 09:00; Stop 07/01/24 at 08:59 Lactulose 20 gm BID PO Last administered on 06/21/24at 10:07; Start 06/21/24 at 21:00; Stop 07/12/24 at 08:59 Bisacodyl 10 mg DAILY RC; Start 06/22/24 at 09:00; Stop 06/25/24 at 08:59 Dextrose 1,000 ml @ 50 mls/hr Q20H IV Last administered on 06/21/24at 10:08; Start 06/21/24 at 09:30; Stop 06/23/24 at 09:29 CHIRAG SÁNCHEZ MD Jun 21, 2024 21:43
--- NOTE | 2024-06-21 23:02 | PN ---
INFECTIOUS DISEASE FOLLOWUP NOTE DATE OF SERVICE: 06/21/2024 SUBJECTIVE: The patient is seen and examined at bedside. The patient has no fever, no chills. The patient has been transferred out of ICU. Tolerating NG tube feeding. ____ MBSS. No rashes, ulcer. No bleeding tendency. Bedbound debility. No joint swelling or redness. PHYSICAL EXAMINATION: VITAL SIGNS: Temperature 97.9. EYES: No icterus. Pupils equal and reactive. HENT: NG tube in place. Moist oral mucosa. No oral thrush seen. NECK: Supple. No JVD or thyromegaly. LUNGS: Few crackles. No rhonchi. CARDIOVASCULAR: S1, S2, regular. No murmur heard. ABDOMEN: Distended with ascites, nontender. CENTRAL NERVOUS SYSTEM: Awake, alert, oriented x 3, bedbound debility. SKIN: No rashes, no itchiness. LYMPHATIC: No peripheral lymphadenopathy. BACK: No deformity, no pressure ulcer. MUSCULOSKELETAL: No joint swelling. ASSESSMENT: A 53-year-old male with multiple problems which include: * Acute hypoxemic respiratory failure. * Pneumonia. * Thrombocytopenia. * Alcoholic liver cirrhosis. * Ascites. * Dehydration. * Encephalopathy, which is better. PLAN: * Continue cefepime. * Continue pain management. * Continue fluconazole. * Continue vancomycin. * Continue NG tube feeding. * Continue CIWA protocol. * Monitor electrolytes. * The patient will follow up closely. TID: [id number] RECEIPT: [id number]
[2024-06-22] VITALS (13 sets, daily range): BP systolic 129–145; BP diastolic 63–88; PULSE 100–125; RESP 16–20; TEMP 98.4–99.2; O2SAT 94–98
[2024-06-22 06:16] LABS: INR 1.43 (0.85-1.15); PROTHROMBIN TIME 15.5 SEC (9.6-11.6)
[2024-06-22 06:17] LABS: PARTIAL THROMBOPLASTIN TIME 34.5 SEC (26.3-35.5)
[2024-06-22 06:18] LABS: BASOPHILS # (AUTO) 0.12 K/uL (0.00-0.20); BASOPHILS % (AUTO) 0.7 % (0.0-5.0); EOSINOPHILS # (AUTO) 0.11 K/uL (0.00-0.70); EOSINOPHILS % (AUTO) 0.6 % (0.0-8.0); HEMATOCRIT 31.4 % (42-54); IMMATURE GRANULOCYTE ABSOLUTE 0.17 K/uL (0-1); LYMPHOCYTES # (AUTO) 1.8 K/uL (1.0-4.8); LYMPHOCYTES % (AUTO) 10.3 % (21.0-51.0); MEAN CORPUSCULAR HEMOGLOBIN 34.5 pg (27.0-33.0); MEAN CORPUSCULAR HGB CONC 32.5 g/dL (32.0-36.0); MEAN CORPUSCULAR VOLUME 106.1 fL (79-99); MONOCYTES # (AUTO) 1.4 K/uL (0.1-1.0); MONOCYTES % (AUTO) 8.3 % (3.0-13.0); NEUTROPHILS # (AUTO) 13.6 K/uL (1.8-7.7); NEUTROPHILS % (AUTO) 79.1 % (40.0-77.0); NUCLEATED RED BLOOD CELLS 0.2 % (0.0-0.19); PLATELET COUNT (AUTO) 290 K/uL (130-400); RED BLOOD CELL COUNT(AUTO) 2.96 MIL/uL (4.50-6.20); RED CELL DISTRIBUTION WIDTH 15.5 % (11.0-15.5); WHITE BLOOD COUNT (AUTO) 17.2 K/uL (4.8-10.8)
[2024-06-22 06:25] LABS: ALBUMIN 1.8 g/dL (3.5-5.0); BILIRUBIN,TOTAL 3.9 mg/dL (0.2-1.0); CREATININE 1.6 mg/dL (0.5-1.3); POTASSIUM 3.9 mmol/L (3.5-5.1); TOTAL PROTEIN, SERUM 5.4 g/dL (6.0-8.3)
--- NOTE | 2024-06-22 07:59 | PN ---
[facility] PROGRESS NOTE Date of Service: Jun 22, 2024 Time of Service: 07:59 SUBJECTIVE: 53-year-old male who was admitted with diagnosis of septic shock and acute respiratory failure secondary to Gram neg pneumonia, hepatic encephalopathy from alcoholic liver cirrhosis, acute on chronic HF. Due to decompensation in the ER he was intubated and admitted to the ICU. Successfully extubated on 06/17/24. MBSS showing severe pharyngeal dysphasia. GI team does not recommend peg tube due to ascites. Recommended palliative vs hospice moving forward. Today at bedside evaluation patient continues with NG tube. Case management/clinical social work therapist coordinating with family and patient regarding palliative versus hospice services. Patient's latest vitals are stable, afebrile. White count is elevated at 17.2, H&H is 10.2/31.4, sodium remains elevated at 154, chloride 121, BUN , creatinine 1.6. Pending ultrasound guided paracentesis via IR. Discussed case with Dr. Mora, recommends to continue IV Merrem and p.o. Bactrim. Continue fluid restriction1 L/daily. Discussed with Lucita MURPHY, primary nurse. REVIEW OF SYSTEMS 12 point review of systems negative unless noted in HPI PHYSICAL EXAM GENERAL APPEARANCE: The patient is awake, alert, and oriented, in no acute cardiopulmonary distress. NEUROLOGICAL: Cranial nerves II-XII grossly intact. Motor is 5/5 in bilateral upper and lower extremities proximal to distal. No sensory deficits. HEENT: Face is symmetric. Pupils are equal and reactive. Extraocular movements are intact. NECK: Supple. No JVD. No thyromegaly. No submental, submandibular, pre- /postauricular, occipital or supraclavicular lymphadenopathy. CHEST: Normal chest expansion. No Telemetry. LUNGS: Decreased bilateral breath sounds on the lower bases per auscultation CARDIOVASCULAR: Regular. S1 and S2 normal. No appreciable rubs, murmurs or gallops. ABDOMEN: Soft, nontender, and nondistended. There is no rebound, voluntary guarding, or rigidity. : Deferred. Gomez. EXTREMITIES: Non-edematous and not cyanotic. No clubbing. Good capillary refill. SKIN: No skin breakdown. Vital Signs (last 8hr) Date Time Temp Pulse Resp B/P (MAP) Pulse Ox O2 Delivery O2 Flow Rate FiO2 06/22/24 07:43 98.8 100 20 145/63 96 Nasal Cannula 3.0 06/22/24 06:52 125 20 06/22/24 06:51 125 20 N/A Room Air 21 06/22/24 04:00 98.8 117 18 129/80 94 Nasal Cannula 3.0 LABS: Laboratory: Test 06/22/24 06:13 06/22/24 05:24 06/21/24 04:00 Range/Units Whole Blood Glucose 123 H 70-110 MG/DL White Blood Count 17.2 H 4.8-10.8 K/uL Red Blood Count 2.96 L 4.50-6.20 MIL/uL Hemoglobin 10.2 L 14.0-18.0 g/dL Hematocrit 31.4 L 42-54 % Mean Corpuscular Volume 106.1 H 79-99 fL Mean Corpuscular Hemoglobin 34.5 H 27.0-33.0 pg Mean Corpuscular Hemoglobin Concent 32.5 32.0-36.0 g/dL Red Cell Distribution Width 15.5 11.0-15.5 % Platelet Count 290 # 130-400 K/uL Mean Platelet Volume 12.4 H 7.5-10.5 fL Immature Granulocyte % (Auto) 1.0 0-1 % Neutrophils (%) (Auto) 79.1 H 40.0-77.0 % Lymphocytes (%) (Auto) 10.3 L 21.0-51.0 % Monocytes (%) (Auto) 8.3 3.0-13.0 % Eosinophils (%) (Auto) 0.6 0.0-8.0 % Basophils (%) (Auto) 0.7 0.0-5.0 % Neutrophils # (Auto) 13.6 H 1.8-7.7 K/uL Lymphocytes # (Auto) 1.8 1.0-4.8 K/uL Monocytes # (Auto) 1.4 H 0.1-1.0 K/uL Eosinophils # (Auto) 0.11 0.00-0.70 K/uL Basophils # (Auto) 0.12 0.00-0.20 K/uL Absolute Immature Granulocyte (auto 0.17 0-1 K/uL Nucleated Red Blood Cells 0.2 H 0.0-0.19 % Prothrombin Time 15.5 H 9.6-11.6 SEC Prothromb Time International Ratio 1.43 H 0.85-1.15 Activated Partial Thromboplast Time 34.5 26.3-35.5 SEC Sodium Level 154 H 136-145 mmol/L Potassium Level 3.9 3.5-5.1 mmol/L Chloride Level 121 *H 101-111 mmol/L Carbon Dioxide Level 19 L 21-32 mmol/L Blood Urea Nitrogen 41 H 7-18 mg/dL Creatinine 1.6 H 0.5-1.3 mg/dL Glomerular Filtration Rate Calc 51 >90 mL/min Random Glucose 124 H 70-105 mg/dL Total Calcium 8.3 L 8.5-10.1 mg/dL Total Bilirubin 3.9 H 0.2-1.0 mg/dL Aspartate Amino Transf (AST/SGOT) 104 H 10-37 U/L Alanine Aminotransferase (ALT/SGPT) 50 12-78 U/L Alkaline Phosphatase 176 H 50-136 U/L Total Creatine Kinase 22 # 21-232 U/L Total Protein 5.4 L 6.0-8.3 g/dL Albumin 1.8 L 3.5-5.0 g/dL Magnesium Level 1.90 1.80-2.40 mg/dL B-Type Natriuretic Peptide 476 H 0-100 pg/mL Current Medications Medications (Trade) Dose Ordered Sig/Quan Route PRN Reason Start Time Stop Time Status Last Admin Dose Admin Acetaminophen (TYLenol 500MG TAB) 500 mg Q6H PRN PO TEMP < 101.1 AND/OR HEADACHE 06/09/24 18:00 07/09/24 17:59 06/14/24 17:35 500 MG Albumin Human 100 ml @ 50 mls/hr AD IV 06/12/24 11:00 06/14/24 10:59 DC 06/12/24 13:30 50 MLS/HR Albumin Human 250 ml @ 0 mls/hr AD IV 06/17/24 11:00 06/19/24 10:59 DC 06/17/24 10:54 250 MLS/HR Artificial Tears (Artificial Tears) 1 DROP OR AD Q8H OU 06/09/24 09:00 07/09/24 08:59 06/22/24 01:04 1 DROP Bisacodyl (DulcoLAX) 10 mg DAILY RC 06/22/24 09:00 06/25/24 08:59 Cefepime HCl (MAXipime 2 gm vial) 2 gm Q12H IVPB 06/11/24 05:00 06/18/24 15:59 DC 06/18/24 05:05 2 GM Cefepime HCl (MAXipime 2 gm vial) 2 gm Q12H IVPB 06/18/24 16:30 06/18/24 16:06 DC Cefepime HCl (MAXipime 2 gm vial) 2 gm Q12H IVPB 06/18/24 17:00 06/19/24 14:11 DC 06/19/24 02:32 2 GM Cefepime HCl (MAXipime 2 gm vial) 2 gm Q8H IVPB 06/09/24 09:00 06/10/24 19:49 DC 06/10/24 16:44 2 GM Chlorhexidine Gluconate (Peridex) 15 ml Q8H MM 06/09/24 09:00 06/21/24 09:21 DC 06/21/24 01:29 15 ML Dexmedetomidine/ Sodium Chloride (PRECEdex 400MCG/ 100ML-NS) 400 mcg PROTOCOL IV 06/11/24 20:30 06/21/24 09:21 DC 06/20/24 23:18 400 MCG Dextrose 1,000 ml @ 50 mls/hr Q20H IV 06/21/24 09:30 06/23/24 09:29 06/21/24 10:08 50 MLS/HR Dextrose/Sodium Chloride 1,000 ml @ 0 mls/hr AD IV 06/09/24 10:00 06/11/24 13:29 DC Diazepam (VALium 5 mg TAB) 10 mg Q12H NG 06/18/24 16:00 06/20/24 12:51 DC 06/20/24 04:31 10 MG Diazepam (VALium 5 mg TAB) 15 mg Q12H NG 06/20/24 16:00 07/20/24 15:59 06/22/24 03:25 15 MG Fentanyl Citrate 100 ml @ 2.5 mls/hr PROTOCOL IV 06/09/24 06:30 06/12/24 13:28 DC 06/11/24 21:06 2.5 MLS/HR Folic Acid (FolVITE 5 MG/ML VIAL) 1 mg DAILY IV 06/09/24 18:00 07/09/24 17:59 06/21/24 10:58 1 MG Furosemide (LASix 20MG VIAL) 20 mg DAILY IV 06/13/24 09:00 06/13/24 09:20 DC 06/13/24 07:59 20 MG Furosemide (LASix 20MG VIAL) 20 mg DAILY IV 06/19/24 09:00 06/20/24 14:00 DC 06/20/24 08:17 20 MG Furosemide (LASix 20MG VIAL) 20 mg Q12H IV 06/09/24 12:00 06/09/24 11:26 DC Furosemide (LASix 20MG VIAL) 20 mg Q6H6 IV 06/09/24 12:00 06/12/24 07:38 DC 06/12/24 06:46 20 MG Furosemide (LASix 20MG VIAL) 40 mg Q12H IV 06/12/24 08:00 06/12/24 14:58 DC 06/12/24 08:16 40 MG Heparin Sodium/ Dextrose 250 ml @ 0 mls/hr PROTOCOL IV 06/09/24 03:30 06/09/24 09:45 DC 06/09/24 03:31 10.78 MLS/HR Insulin Human Regular (humuLIN R 100 UNIT/ML 3ML) INSULIN SLIDING SCAL... Q6H6 SQ 06/11/24 12:00 06/13/24 11:22 DC 06/13/24 06:45 6 UNIT Insulin Human Regular (humuLIN R 100 UNIT/ML 3ML) INSULIN SLIDING SCAL... Q6H6 SQ 06/13/24 12:00 07/13/24 11:59 06/17/24 00:51 6 UNIT Insulin Human Regular 100 unit/ Sodium Chloride 101 ml @ 0 mls/hr PROTOCOL IV 06/09/24 10:00 06/11/24 13:29 DC 06/09/24 11:41 1 MLS/HR Ipratropium Ucon (AtrovENT UD) 0.5 MG [id number] IH 06/14/24 14:00 06/19/24 09:03 DC 06/19/24 06:21 0.5 MG Ipratropium Ucon (AtrovENT UD) 0.5 MG [id number] IH 06/19/24 12:00 07/14/24 13:59 06/22/24 06:50 0.5 MG Lactated Ringer's 1,000 ml @ 50 mls/hr Q20H IV 06/13/24 09:30 06/13/24 14:44 DC 06/13/24 11:18 50 MLS/HR Lactated Ringer's 1,000 ml @ 75 mls/hr [id number] IV 06/15/24 11:00 06/17/24 09:36 DC 06/17/24 03:57 75 MLS/HR Lactated Ringer's (Lactated Ringers 1000ml) 500 ml BOLUS IV 06/15/24 10:00 06/15/24 12:31 DC 06/15/24 10:04 500 ML Lactulose (Constulose 20gm/ 30ml Udcup) 20 gm BID PO 06/21/24 21:00 07/12/24 08:59 06/21/24 10:07 20 GM Lactulose (Constulose 20gm/ 30ml Udcup) 20 gm DAILY PO 06/12/24 09:00 06/21/24 09:25 DC 06/20/24 08:16 20 GM Levofloxacin/ Dextrose (LEvaquIN 750 MG/ D5W 150 ML) 750 mg Q24H IV 06/09/24 06:30 06/09/24 08:29 DC Lorazepam (AtiVAN) 2 mg Q4H PRN IVP ALCOHOL WITHDRAWAL PROTOCOL 06/09/24 18:00 06/16/24 17:59 DC Lorazepam (AtiVAN) 4 mg Q2H PRN IVP ALCOHOL WITHDRAWAL PROTOCOL 06/09/24 18:00 06/16/24 17:59 DC Magnesium Sulfate 50 ml @ 0 mls/hr PROTOCOL IV 06/09/24 10:00 06/11/24 13:29 DC 06/11/24 07:13 25 MLS/HR Magnesium Sulfate 50 ml @ 0 mls/hr PROTOCOL PRN IV OTHER [SEE ORDER COMMENTS] 06/09/24 01:00 06/09/24 06:50 DC 06/09/24 01:03 25 MLS/HR Magnesium Sulfate 50 ml @ 0 mls/hr PROTOCOL PRN IV OTHER [SEE ORDER COMMENTS] 06/09/24 07:00 06/09/24 08:35 DC Magnesium Sulfate 50 ml @ 0 mls/hr PROTOCOL PRN IV low magnesium 06/09/24 08:30 06/09/24 09:46 DC Magnesium Sulfate 50 ml @ 0 mls/hr PROTOCOL PRN IV MAGNESIUM PROTOCOL 06/11/24 15:00 07/11/24 14:59 06/19/24 06:32 25 MLS/HR Meropenem (Merrem 1gm) 1 gm Q12H IV 06/18/24 20:00 06/18/24 16:05 DC Meropenem (Merrem 1gm) 1 gm Q12H IV 06/19/24 14:30 06/29/24 14:29 06/22/24 03:24 1 GM Meropenem (Merrem 500mg) 500 mg ONCE IV 06/18/24 16:00 06/18/24 16:01 DC Metronidazole/ Sodium Chloride 100 ml @ 100 mls/hr Q8H6 IVPB 06/09/24 14:00 06/19/24 13:59 DC 06/19/24 06:04 100 MLS/HR Midazolam HCl (Midazolam 100mg-0.9% NS 100ml) 100 ml PROTOCOL IV 06/09/24 15:30 06/12/24 10:33 DC 06/11/24 08:05 100 ML Midodrine (PROAMatine 5 MG TABLET) 10 mg TID PO 06/11/24 14:00 06/14/24 10:06 DC 06/14/24 07:47 10 MG Midodrine (PROAMatine 5 MG TABLET) 15 mg TID PO 06/14/24 14:00 07/14/24 13:59 06/21/24 21:59 15 MG Multivitamins Therapeutic (Multivitamin Tablet) 1 tab DAILY PO 06/10/24 09:00 07/10/24 08:59 06/21/24 10:08 1 TAB Norepinephrine Bitartrate (Norepineph 16 Mg/250ml NS Premix) HIGH ALERT Init... PROTOCOL IV 06/09/24 12:30 06/21/24 09:21 DC 06/13/24 19:21 16 MG Octreotide Acetate 1250 mcg/ Sodium Chloride 250 ml @ 0 mls/hr PROTOCOL IV 06/09/24 08:30 06/13/24 13:43 DC 06/11/24 13:17 5 MLS/HR Octreotide Acetate 500 mcg/ Sodium Chloride 100 ml @ 0 mls/hr PROTOCOL IV 06/09/24 04:30 06/09/24 08:13 DC 06/09/24 05:50 5 MLS/HR Ondansetron HCl (zoFRAN 4MG INJ) 4 mg Q4H PRN IV NAUSEA 06/09/24 18:00 07/09/24 17:59 Pantoprazole Sodium (PROTonix 40MG INJ) 40 mg BID IVP 06/11/24 21:00 07/11/24 20:59 06/21/24 21:59 40 MG Pantoprazole Sodium 80 mg/ Sodium Chloride 100 ml @ 10 mls/hr Q10H IVP 06/09/24 04:00 06/11/24 13:24 DC 06/11/24 08:04 10 MLS/HR Pharmacy Profile Note (Pharmacy Communication) 1 each PROTOCOL PRN MISC ETOH Withdrawal Score changes 06/09/24 18:00 06/16/24 17:59 DC Phenylephrine HCl 10 mg/Sodium Chloride 250 ml @ 0 mls/hr PROTOCOL PRN IV PROTOCOL 06/09/24 07:00 07/09/24 06:59 06/09/24 09:27 96 MLS/HR Potassium Chloride 20 meq/ Sodium Chloride 1,010 ml @ 0 mls/hr PROTOCOL IV 06/09/24 10:00 06/11/24 13:29 DC Potassium Chloride/Dextrose/ Sod Cl 1,000 ml @ 0 mls/hr AD IV 06/09/24 10:00 06/11/24 13:29 DC Potassium Chloride 100 ml @ 50 mls/hr AD PRN IV POTASSIUM PROTOCOL 06/09/24 07:00 06/09/24 08:34 DC Potassium Chloride 100 ml @ 50 mls/hr AD PRN IV POTASSIUM PROTOCOL 06/09/24 08:30 07/09/24 08:29 06/19/24 06:31 50 MLS/HR Potassium Chloride 100 ml @ 100 mls/hr AD PRN IV POTASSIUM PROTOCOL 06/09/24 08:30 06/09/24 08:41 DC Potassium Chloride (K-Dur/Klor-Con 20meq) 20 meq AD PRN PO POTASSIUM PROTOCOL 06/09/24 08:30 07/09/24 08:29 Potassium Chloride (KCl 10% Elixir 20meq/15ml) 20 meq AD PRN PO POTASSIUM PROTOCOL 06/09/24 08:30 07/09/24 08:29 06/17/24 08:17 20 MEQ Propofol (DIPRivan 1000MG/ 100ML) 1,000 mg PROTOCOL PRN IV SEDATION 06/14/24 17:30 06/21/24 09:21 DC Sodium Bicarbonate 150 meq/Dextrose 1,150 ml @ 150 mls/hr Q7H40M IVP 06/09/24 00:30 06/09/24 18:11 DC 06/09/24 01:18 150 MLS/HR Sodium Chloride 250 ml @ 0 mls/hr Q0M IV 06/19/24 05:00 06/21/24 09:21 DC 06/19/24 05:07 0 MLS/HR Sodium Chloride 500 ml @ 0 mls/hr Q0M IV 06/17/24 18:00 06/18/24 15:59 DC 06/17/24 18:26 500 MLS/HR Sodium Chloride 1,000 ml @ 75 mls/hr [id number] IV 06/17/24 18:00 06/18/24 15:59 DC 06/18/24 08:49 75 MLS/HR Sodium Chloride 1,000 ml @ 200 mls/hr PROTOCOL IV 06/09/24 10:00 06/11/24 13:29 DC Thiamine HCl (Vitamin B-1) 300 mg DAILY IV 06/09/24 18:00 07/09/24 17:59 06/21/24 10:06 300 MG Trimethoprim/ Sulfamethoxazole (BactRIM DS) 1 tab BID PO 06/21/24 09:00 07/01/24 08:59 06/21/24 21:59 1 TAB Vancomycin HCl 250 ml @ 125 mls/hr Q12H IV 06/09/24 22:00 06/10/24 21:50 DC 06/10/24 10:06 125 MLS/HR Vancomycin HCl 250 ml @ 125 mls/hr Q24H IV 06/11/24 22:00 06/12/24 21:39 DC 06/11/24 21:10 125 MLS/HR Vancomycin HCl 250 ml @ 125 mls/hr Q24H IV 06/13/24 22:00 06/18/24 15:59 DC 06/17/24 20:15 125 MLS/HR Vancomycin HCl (Vancomycin Protocol) 1 each AD IV 06/09/24 09:00 06/18/24 15:59 DC Vasopressin 20 units/Sodium Chloride 100 ml @ 0 mls/hr PROTOCOL IV 06/09/24 07:00 07/09/24 06:59 06/09/24 08:20 9 MLS/HR Wound Care/ Dressing Products (Venelex Ointment) 1 APPL TID TP 06/14/24 21:00 07/14/24 20:59 06/21/24 21:59 1 GM DIAGNOSTICS / RADIOLOGY: [ ] ASSESSMENT: Acute respiratory failure secondary to Gram-negative pneumonia POA Septic shock secondary to Gram-negative pneumonia/hepatic encephalopathy/acute on chronic diastolic HF, resolved Alcohol withdrawals Bilateral lower lobe bacterial Gram-negative pneumonia, POA Severe pharyngeal dysphagia, POA Acute hepatic encephalopathy, resolved POA Combined alcoholic and fatty liver cirrhosis, POA MELD Score 19 points (19.6% estimated three month mortality) NSTEMI type 2, 2/2 supply and demand mismatch POA Acute on chronic Stage I Diastolic Heart Failure w/ EF of 40% POA Elevated troponin R/O ACS POA Elevated D-dimer of 3989, negative for DVT, Well score for PE 3 ( Moderate score) Metabolic acidosis POA Ascites Hepatomegaly Acute blood loss anemia POA Acute upper and lower GI bleed, POA Acute thrombocytopenia POA Acute on chronic diastolic CHF POA Hyperglycemia POA Hypomagnesemia POA Positive for THC POA Active alcohol drinker POA Acute complicated cystitis POA Hypertension POA acute GI bleed POA s/p EGD 06/13/24 non bleeding ulcer PLAN: continue admission in [facility] and the [facility] tele Successfully extubated 06/17. Continue supplemental O2 to keep O2 saturations above 92%, currently satting 96% on 3L/nc Continue CIWA protocol Off Precedex Continue midodrine 15mg TID, wean as able Continue lactulose 20g q24h Continue Cefepime Speech swallow study patient has failed 06/19/2024 Patient failed barium swallow test 06/20/2024 In reference to the ascites: Discussed with Adela RECIO, not a candidate for PEG tube placement recommends palliative vs hospice. Spoke to patient's sister Ely, regarding recommendations and she will talk to patient and patient's brother Continue NPO Continue tube feeding via ng tube Continue to follow critical care input and recommendation Repeated 2D echo LVEF is 50 to 55% no regional wall motion abnormalities noted in the views obtained. 06/18/2024 Continue IV Merrem and PO Bactrim DS Dr. Mora for antimicrobial stewardship. Respiratory cultures positive for stenotrophomonas maltophilia Monitor and replace electrolytes Continue to work with physical therapy Monitor a.m. labs PRN Treatment - Add when necessary meds for nausea, vomiting, pain, constipation, insomnia. DVT/GI prophylaxis- Continue SCDs and Protonix at current doses. Full CODE STATUS This document was generated in part using voice recognition software, occasional wrong word or sound alike substitutions may have occurred due to the inherent limitations of voice recognition software. Read the chart carefully and recognize using context, where the substitutions have occurred. Although every effort was made to edit the content, gin inspector and typing errors may occur I have seen and evaluated the patient alongside the nurse practitioner/physician assistant press operator offset. I agree with the assessment and plan as above. SHALOM ZAYAS APRN Jun 22, 2024 07:59 FELISA OG IV, MD Jun 22, 2024 13:21
[2024-06-22] MEDS: BisaCODYL 10 MG SUPP.RECT RC SCH (09:14)
--- NOTE | 2024-06-22 09:46 | NUR ---
MPOA NEEL LAYLA SISTER Sw and nurse Lucita met with pt. Pt at this time is alert and oriented and voiced he understood information on MPOA. Pt stated he wants sister to be decision maker in event he can not make decisions for self. Sw completed MPOA. Pt and witnesses signed. Original given to sister, copy on chart. SW spoke to sister outside room. Sister states she spoke to pt's son and pt's brother regarding hospice. both will be here today to see pt. Sister states pt is not aware of hospice recommendation and family needs to have conversation with pt. Discussed placement at [facility] and inpt hospice eval. Sister would like inpt eval, and understands that [facility] is Plan B is pt does not meet criteria or becomes stable enough for transfer. Also discussed comfort measures while we are waiting for a bed. Sw to follow up this after noon. Son to be here at 11, brother at 4.
--- NOTE | 2024-06-22 12:25 | NUR ---
U/S GD PARACENTESIS TOLERATED PROCEDURE. PERFORMED BY DR Yariel FARFAN. PUNCTURE SITE TO LLQ. 3.3 LITERS OF CLOUDY YELLOW FLUID REMOVED AND SENT TO LAB. END OF PROCEDURE AT 1210. DRESSING APPLIED. NO BLEEDING NOTED. REPORT GIVEN TO Familia KURTZ RN. TRANSPORTED TO 221 VIA BED. DENIES PAIN. A&O.
--- NOTE | 2024-06-22 14:02 | PN ---
GASTROENTEROLOGY PROGRESS NOTE Date of Visit: Jun 22, 2024 Time of Visit: 14:02 Events / Notes: No acute events overnight. EGD with gastric ulcer. We were called for PEG; however, patient has ascites. Review of Systems: CONSTITUTIONAL: No malaise or change in sensation of wellbeing. ENMT: No rhinorrhea, otorrhea, sinus pain, ear ache. CARDIOVASCULAR: No angina, palpitations, orthopnea or paroxysmal dyspnea. RESPIRATORY: No SOB. GASTROINTESTINAL: No abdominal pain, nausea, vomiting, diarrhea, hematemesis, melena or change in the patient's habitual bowel movements consistency/number. GENITOURINARY: No dysuria, hematuria or change in bladder continence. MUSCULOSKELETAL: No new muscle pain or decrease in muscular strength. No new joint swelling, redness or tenderness. SKIN: No new rash. Physical Exam: GEN: Awake, alert, oriented in person, time and place, and in no acute distress. HEENT: No sinus tenderness. Tympanic membranes were not examined. No rhinorrhea. Oral pharyngeal mucosa is pink, moist and within normal limits. Neck is supple with no cervical lymphadenopathy, thyromegaly or JVD. CHEST: Inspection, palpation and percussion of the chest were unremarkable. Lung auscultation revealed normal breath sounds bilaterally. CARDIAC: PMI is within normal limits. Heart sounds are regular. Normal S1, S2. No gallop or murmur. ABD: Soft, non-tender and not distended. No peritoneal signs on palpation. No organomegaly. Normal bowel sounds. EXT: No cyanosis or clubbing. No edema. SKIN: Intact. No rashes. JOINTS: No evidence of synovitis or acute arthritis. NEURO: Alert and oriented to name, place and person. Cranial nerve examination is unremarkable. No focal motor deficits. Normal speech. Gait is normal. Strength is normal. Vital Signs (last 8hr) Date Time Temp Pulse Resp B/P (MAP) Pulse Ox O2 Delivery O2 Flow Rate FiO2 06/22/24 13:23 94 Room Air* 0 21 06/22/24 11:26 120 20 06/22/24 10:57 98.4 103 20 141/69 95 Nasal Cannula 3.0 06/22/24 07:43 98.8 100 20 145/63 96 Nasal Cannula 3.0 06/22/24 06:52 125 20 2/12/25 06:51 125 20 N/A Room Air 21 Laboratory: [ ] Laboratory: Test 06/22/24 11:24 06/22/24 05:24 06/21/24 04:00 Range/Units Whole Blood Glucose 136 H 70-110 MG/DL White Blood Count 17.2 H 4.8-10.8 K/uL Red Blood Count 2.96 L 4.50-6.20 MIL/uL Hemoglobin 10.2 L 14.0-18.0 g/dL Hematocrit 31.4 L 42-54 % Mean Corpuscular Volume 106.1 H 79-99 fL Mean Corpuscular Hemoglobin 34.5 H 27.0-33.0 pg Mean Corpuscular Hemoglobin Concent 32.5 32.0-36.0 g/dL Red Cell Distribution Width 15.5 11.0-15.5 % Platelet Count 290 # 130-400 K/uL Mean Platelet Volume 12.4 H 7.5-10.5 fL Immature Granulocyte % (Auto) 1.0 0-1 % Neutrophils (%) (Auto) 79.1 H 40.0-77.0 % Lymphocytes (%) (Auto) 10.3 L 21.0-51.0 % Monocytes (%) (Auto) 8.3 3.0-13.0 % Eosinophils (%) (Auto) 0.6 0.0-8.0 % Basophils (%) (Auto) 0.7 0.0-5.0 % Neutrophils # (Auto) 13.6 H 1.8-7.7 K/uL Lymphocytes # (Auto) 1.8 1.0-4.8 K/uL Monocytes # (Auto) 1.4 H 0.1-1.0 K/uL Eosinophils # (Auto) 0.11 0.00-0.70 K/uL Basophils # (Auto) 0.12 0.00-0.20 K/uL Absolute Immature Granulocyte (auto 0.17 0-1 K/uL Nucleated Red Blood Cells 0.2 H 0.0-0.19 % Prothrombin Time 15.5 H 9.6-11.6 SEC Prothromb Time International Ratio 1.43 H 0.85-1.15 Activated Partial Thromboplast Time 34.5 26.3-35.5 SEC Sodium Level 154 H 136-145 mmol/L Potassium Level 3.9 3.5-5.1 mmol/L Chloride Level 121 *H 101-111 mmol/L Carbon Dioxide Level 19 L 21-32 mmol/L Blood Urea Nitrogen 41 H 7-18 mg/dL Creatinine 1.6 H 0.5-1.3 mg/dL Glomerular Filtration Rate Calc 51 >90 mL/min Random Glucose 124 H 70-105 mg/dL Total Calcium 8.3 L 8.5-10.1 mg/dL Total Bilirubin 3.9 H 0.2-1.0 mg/dL Aspartate Amino Transf (AST/SGOT) 104 H 10-37 U/L Alanine Aminotransferase (ALT/SGPT) 50 12-78 U/L Alkaline Phosphatase 176 H 50-136 U/L Total Creatine Kinase 22 # 21-232 U/L B-Type Natriuretic Peptide 539 H 0-100 pg/mL Total Protein 5.4 L 6.0-8.3 g/dL Albumin 1.8 L 3.5-5.0 g/dL Magnesium Level 1.90 1.80-2.40 mg/dL Current Medications Medications (Trade) Dose Ordered Sig/Quan Route PRN Reason Start Time Stop Time Status Last Admin Dose Admin Acetaminophen (TYLenol 500MG TAB) 500 mg Q6H PRN PO TEMP < 101.1 AND/OR HEADACHE 06/09/24 18:00 07/09/24 17:59 06/14/24 17:35 500 MG Albumin Human 100 ml @ 50 mls/hr AD IV 06/12/24 11:00 06/14/24 10:59 DC 06/12/24 13:30 50 MLS/HR Albumin Human 250 ml @ 0 mls/hr AD IV 06/17/24 11:00 06/19/24 10:59 DC 06/17/24 10:54 250 MLS/HR Artificial Tears (Artificial Tears) 1 DROP OR AD Q8H OU 06/09/24 09:00 07/09/24 08:59 06/22/24 09:14 1 DROP Bisacodyl (DulcoLAX) 10 mg DAILY RC 06/22/24 09:00 06/25/24 08:59 06/22/24 09:14 10 MG Cefepime HCl (MAXipime 2 gm vial) 2 gm Q12H IVPB 06/11/24 05:00 06/18/24 15:59 DC 06/18/24 05:05 2 GM Cefepime HCl (MAXipime 2 gm vial) 2 gm Q12H IVPB 06/18/24 16:30 06/18/24 16:06 DC Cefepime HCl (MAXipime 2 gm vial) 2 gm Q12H IVPB 06/18/24 17:00 06/19/24 14:11 DC 06/19/24 02:32 2 GM Cefepime HCl (MAXipime 2 gm vial) 2 gm Q8H IVPB 06/09/24 09:00 06/10/24 19:49 DC 06/10/24 16:44 2 GM Chlorhexidine Gluconate (Peridex) 15 ml Q8H MM 06/09/24 09:00 06/21/24 09:21 DC 06/21/24 01:29 15 ML Dexmedetomidine/ Sodium Chloride (PRECEdex 400MCG/ 100ML-NS) 400 mcg PROTOCOL IV 06/11/24 20:30 06/21/24 09:21 DC 06/20/24 23:18 400 MCG Dextrose 1,000 ml @ 50 mls/hr Q20H IV 06/21/24 09:30 06/23/24 09:29 06/21/24 10:08 50 MLS/HR Dextrose/Sodium Chloride 1,000 ml @ 0 mls/hr AD IV 06/09/24 10:00 06/11/24 13:29 DC Diazepam (VALium 5 mg TAB) 10 mg Q12H NG 06/18/24 16:00 06/20/24 12:51 DC 06/20/24 04:31 10 MG Diazepam (VALium 5 mg TAB) 15 mg Q12H NG 06/20/24 16:00 07/20/24 15:59 06/22/24 03:25 15 MG Fentanyl Citrate 100 ml @ 2.5 mls/hr PROTOCOL IV 06/09/24 06:30 06/12/24 13:28 DC 06/11/24 21:06 2.5 MLS/HR Folic Acid (FolVITE 5 MG/ML VIAL) 1 mg DAILY IV 06/09/24 18:00 07/09/24 17:59 06/22/24 09:14 1 MG Furosemide (LASix 20MG VIAL) 20 mg DAILY IV 06/13/24 09:00 06/13/24 09:20 DC 06/13/24 07:59 20 MG Furosemide (LASix 20MG VIAL) 20 mg DAILY IV 06/19/24 09:00 06/20/24 14:00 DC 06/20/24 08:17 20 MG Furosemide (LASix 20MG VIAL) 20 mg Q12H IV 06/09/24 12:00 06/09/24 11:26 DC Furosemide (LASix 20MG VIAL) 20 mg Q6H6 IV 06/09/24 12:00 06/12/24 07:38 DC 06/12/24 06:46 20 MG Furosemide (LASix 20MG VIAL) 40 mg Q12H IV 06/12/24 08:00 06/12/24 14:58 DC 06/12/24 08:16 40 MG Heparin Sodium/ Dextrose 250 ml @ 0 mls/hr PROTOCOL IV 06/09/24 03:30 06/09/24 09:45 DC 06/09/24 03:31 10.78 MLS/HR Insulin Human Regular (humuLIN R 100 UNIT/ML 3ML) INSULIN SLIDING SCAL... Q6H6 SQ 06/11/24 12:00 06/13/24 11:22 DC 06/13/24 06:45 6 UNIT Insulin Human Regular (humuLIN R 100 UNIT/ML 3ML) INSULIN SLIDING SCAL... Q6H6 SQ 06/13/24 12:00 07/13/24 11:59 06/17/24 00:51 6 UNIT Insulin Human Regular 100 unit/ Sodium Chloride 101 ml @ 0 mls/hr PROTOCOL IV 06/09/24 10:00 06/11/24 13:29 DC 06/09/24 11:41 1 MLS/HR Ipratropium [place] (AtrovENT UD) 0.5 MG [id number] 06/14/24 14:00 06/19/24 09:03 DC 06/19/24 06:21 0.5 MG Ipratropium [place] (AtrovENT UD) 0.5 MG [id number] [id number] 06/19/24 12:00 07/14/24 13:59 06/22/24 11:25 0.5 MG Lactated Ringer's 1,000 ml @ 50 mls/hr Q20H IV 06/13/24 09:30 06/13/24 14:44 DC 06/13/24 11:18 50 MLS/HR Lactated Ringer's 1,000 ml @ 75 mls/hr [id number] IV 06/15/24 11:00 06/17/24 09:36 DC 06/17/24 03:57 75 MLS/HR Lactated Ringer's (Lactated Ringers 1000ml) 500 ml BOLUS IV 06/15/24 10:00 06/15/24 12:31 DC 06/15/24 10:04 500 ML Lactulose (Constulose 20gm/ 30ml Udcup) 20 gm BID PO 06/21/24 21:00 07/12/24 08:59 06/22/24 09:13 20 GM Lactulose (Constulose 20gm/ 30ml Udcup) 20 gm DAILY PO 06/12/24 09:00 06/21/24 09:25 DC 06/20/24 08:16 20 GM Levofloxacin/ Dextrose (LEvaquIN 750 MG/ D5W 150 ML) 750 mg Q24H IV 06/09/24 06:30 06/09/24 08:29 DC Lorazepam (AtiVAN) 2 mg Q4H PRN IVP ALCOHOL WITHDRAWAL PROTOCOL 06/09/24 18:00 06/16/24 17:59 DC Lorazepam (AtiVAN) 4 mg Q2H PRN IVP ALCOHOL WITHDRAWAL PROTOCOL 06/09/24 18:00 06/16/24 17:59 DC Magnesium Sulfate 50 ml @ 0 mls/hr PROTOCOL IV 06/09/24 10:00 06/11/24 13:29 DC 06/11/24 07:13 25 MLS/HR Magnesium Sulfate 50 ml @ 0 mls/hr PROTOCOL PRN IV OTHER [SEE ORDER COMMENTS] 06/09/24 01:00 06/09/24 06:50 DC 06/09/24 01:03 25 MLS/HR Magnesium Sulfate 50 ml @ 0 mls/hr PROTOCOL PRN IV OTHER [SEE ORDER COMMENTS] 06/09/24 07:00 06/09/24 08:35 DC Magnesium Sulfate 50 ml @ 0 mls/hr PROTOCOL PRN IV low magnesium 06/09/24 08:30 06/09/24 09:46 DC Magnesium Sulfate 50 ml @ 0 mls/hr PROTOCOL PRN IV MAGNESIUM PROTOCOL 06/11/24 15:00 07/11/24 14:59 06/19/24 06:32 25 MLS/HR Meropenem (Merrem 1gm) 1 gm Q12H IV 06/18/24 20:00 06/18/24 16:05 DC Meropenem (Merrem 1gm) 1 gm Q12H IV 06/19/24 14:30 06/29/24 14:29 06/22/24 03:24 1 GM Meropenem (Merrem 500mg) 500 mg ONCE IV 06/18/24 16:00 06/18/24 16:01 DC Metronidazole/ Sodium Chloride 100 ml @ 100 mls/hr Q8H6 IVPB 06/09/24 14:00 06/19/24 13:59 DC 06/19/24 06:04 100 MLS/HR Midazolam HCl (Midazolam 100mg-0.9% NS 100ml) 100 ml PROTOCOL IV 06/09/24 15:30 06/12/24 10:33 DC 06/11/24 08:05 100 ML Midodrine (PROAMatine 5 MG TABLET) 10 mg TID PO 06/11/24 14:00 06/14/24 10:06 DC 06/14/24 07:47 10 MG Midodrine (PROAMatine 5 MG TABLET) 15 mg TID PO 06/14/24 14:00 07/14/24 13:59 06/21/24 21:59 15 MG Multivitamins Therapeutic (Multivitamin Tablet) 1 tab DAILY PO 06/10/24 09:00 07/10/24 08:59 06/22/24 09:13 1 TAB Norepinephrine Bitartrate (Norepineph 16 Mg/250ml NS Premix) HIGH ALERT Init... PROTOCOL IV 06/09/24 12:30 06/21/24 09:21 DC 06/13/24 19:21 16 MG Octreotide Acetate 1250 mcg/ Sodium Chloride 250 ml @ 0 mls/hr PROTOCOL IV 06/09/24 08:30 06/13/24 13:43 DC 06/11/24 13:17 5 MLS/HR Octreotide Acetate 500 mcg/ Sodium Chloride 100 ml @ 0 mls/hr PROTOCOL IV 06/09/24 04:30 06/09/24 08:13 DC 06/09/24 05:50 5 MLS/HR Ondansetron HCl (zoFRAN 4MG INJ) 4 mg Q4H PRN IV NAUSEA 06/09/24 18:00 07/09/24 17:59 Pantoprazole Sodium (PROTonix 40MG INJ) 40 mg BID IVP 06/11/24 21:00 07/11/24 20:59 06/22/24 09:14 40 MG Pantoprazole Sodium 80 mg/ Sodium Chloride 100 ml @ 10 mls/hr Q10H IVP 06/09/24 04:00 06/11/24 13:24 DC 06/11/24 08:04 10 MLS/HR Pharmacy Profile Note (Pharmacy Communication) 1 each PROTOCOL PRN MISC ETOH Withdrawal Score changes 06/09/24 18:00 06/16/24 17:59 DC Phenylephrine HCl 10 mg/Sodium Chloride 250 ml @ 0 mls/hr PROTOCOL PRN IV PROTOCOL 06/09/24 07:00 07/09/24 06:59 06/09/24 09:27 96 MLS/HR Potassium Chloride 20 meq/ Sodium Chloride 1,010 ml @ 0 mls/hr PROTOCOL IV 06/09/24 10:00 06/11/24 13:29 DC Potassium Chloride/Dextrose/ Sod Cl 1,000 ml @ 0 mls/hr AD IV 06/09/24 10:00 06/11/24 13:29 DC Potassium Chloride 100 ml @ 50 mls/hr AD PRN IV POTASSIUM PROTOCOL 06/09/24 07:00 06/09/24 08:34 DC Potassium Chloride 100 ml @ 50 mls/hr AD PRN IV POTASSIUM PROTOCOL 06/09/24 08:30 07/09/24 08:29 06/19/24 06:31 50 MLS/HR Potassium Chloride 100 ml @ 100 mls/hr AD PRN IV POTASSIUM PROTOCOL 06/09/24 08:30 06/09/24 08:41 DC Potassium Chloride (K-Dur/Klor-Con 20meq) 20 meq AD PRN PO POTASSIUM PROTOCOL 06/09/24 08:30 07/09/24 08:29 Potassium Chloride (KCl 10% Elixir 20meq/15ml) 20 meq AD PRN PO POTASSIUM PROTOCOL 06/09/24 08:30 07/09/24 08:29 06/17/24 08:17 20 MEQ Propofol (DIPRivan 1000MG/ 100ML) 1,000 mg PROTOCOL PRN IV SEDATION 06/14/24 17:30 06/21/24 09:21 DC Sodium Bicarbonate 150 meq/Dextrose 1,150 ml @ 150 mls/hr Q7H40M IVP 06/09/24 00:30 06/09/24 18:11 DC 06/09/24 01:18 150 MLS/HR Sodium Chloride 250 ml @ 0 mls/hr Q0M IV 06/19/24 05:00 06/21/24 09:21 DC 06/19/24 05:07 0 MLS/HR Sodium Chloride 500 ml @ 0 mls/hr Q0M IV 06/17/24 18:00 06/18/24 15:59 DC 06/17/24 18:26 500 MLS/HR Sodium Chloride 1,000 ml @ 75 mls/hr [id number] IV 06/17/24 18:00 06/18/24 15:59 DC 06/18/24 08:49 75 MLS/HR Sodium Chloride 1,000 ml @ 200 mls/hr PROTOCOL IV 06/09/24 10:00 06/11/24 13:29 DC Thiamine HCl (Vitamin B-1) 300 mg DAILY IV 06/09/24 18:00 07/09/24 17:59 06/22/24 09:13 300 MG Trimethoprim/ Sulfamethoxazole (BactRIM DS) 1 tab BID PO 06/21/24 09:00 07/01/24 08:59 06/22/24 09:13 1 TAB Vancomycin HCl 250 ml @ 125 mls/hr Q12H IV 06/09/24 22:00 06/10/24 21:50 DC 06/10/24 10:06 125 MLS/HR Vancomycin HCl 250 ml @ 125 mls/hr Q24H IV 06/11/24 22:00 06/12/24 21:39 DC 06/11/24 21:10 125 MLS/HR Vancomycin HCl 250 ml @ 125 mls/hr Q24H IV 06/13/24 22:00 06/18/24 15:59 DC 06/17/24 20:15 125 MLS/HR Vancomycin HCl (Vancomycin Protocol) 1 each AD IV 06/09/24 09:00 06/18/24 15:59 DC Vasopressin 20 units/Sodium Chloride 100 ml @ 0 mls/hr PROTOCOL IV 06/09/24 07:00 07/09/24 06:59 06/09/24 08:20 9 MLS/HR Wound Care/ Dressing Products (Venelex Ointment) 1 APPL TID TP 06/14/24 21:00 07/14/24 20:59 06/22/24 09:14 1 GM Diagnostics / Radiology: [COPY/PASTE HERE IF NO REPORTS PLEASE DELETE SECTION] Assessment: Oropharyngeal dysphagia Feeding difficulties Gastric ulcer Acute blood loss anemia Cirrhosis Plan: Patient is not a candidate for PEG given known ascites- high risk for peritonitis. can consider surgery for open g tube; however, also high risk. Consider palliative/hospice Continue GI prophylaxis Avoid NSAIDs Antireflux measures Monitor H&H and transfuse as needed Call with questions, concerns or change in clinical status Patient to follow-up at clinic post discharge Thank you for this consult LISA FRASER Jun 22, 2024 14:02
[2024-06-22 14:57] LABS: BODY FLUID RBC 376 /cu. mm.; BODY FLUID WBC 18 /cu. mm.
[2024-06-22 15:07] LABS: SPECIMENTYPE,BODY FLUID ASCITES
[2024-06-22 15:08] LABS: APPEARANCE BODY FLUID CLEAR (CLEAR); COLOR,BODY FLUID YELLOW (LT YELLOW); TOTAL VOLUME,BODY FLUID 3300 mL
--- NOTE | 2024-06-22 16:09 | NUR ---
HOSPICE - INPT EVAL Sw revisited with pt's sister as requested. Sister states they want to start the hospice process. Sister wants pt evaluated for inpt hospice. Sister wants comfort measures only, if pt does not qualify for inpt hospice and until a bed can be arranged at [facility] Sister signed consent for referral to [facility]. Abhi [phone] made aware and will come shortly to evaluate pt. Clinicals faxed to [facility] office [phone] Nurse Lucita notified HEMAL Rocha of above and order was given.
--- NOTE | 2024-06-22 16:43 | HMCIMG ---
US ABDOMINAL PARACENTESIS IR HISTORY: Ascites COMPARISON: None TECHNIQUE: Informed consent was obtained. Risks and benefits were explained to the patient. A timeout was performed. Patient was prepped and draped in a sterile fashion. Local anesthetics was given as required. Under ultrasound guidance, ascites fluid was localized. Paracentesis was performed. FINDINGS: 3.3 L of yellowish fluid was aspirated. Less than 2 cc blood loss is noted. Patient tolerated procedure without complication. Patient left the department in good condition. IMPRESSION: 1. Uncomplicated ultrasound guidance paracentesis.
--- NOTE | 2024-06-22 17:37 | NUR ---
Nutrition f/u Reviewed labs, notes, and medications. Na 154 (H), elevated BUN 41, elevated Cr 1.6, BG 135 (H), elevated bilirubin 3.9, vit. D 15.4, b-complex, MVI, not a candidate for PEG tube, pending comfort measures per chart review. Paracentesis 3.3 L output 06/22/24, NG tube in place, wt via bed scale, liquid loose BM 06/21/24, mild pitting, fluid restriction 1L per day, buttock ulcer per nursing. Wt fluctuations expected per paracentesis. To monitor comfort care decision If residuals more than 500 ml stop tube feed for 2 hours. If repeated stop tube feed and contact MD per protocol Recommendations: Provide Vital 1.2 @ 25 mL/hr x 22 hrs + 250 mL Q4H Provides: 550 kcals, 22 g protein, 846 ml per day -Provide goal rate of Vital AF 1.2 @ 50 ml/hr x 22 hrs + 100 ml Q6H once medically feasible Provides:1320 kcal, 82 gm pro, 1.L -Fluid restriction per MD Monitor BM -Consider stool softener if no BM >3 days Monitor electrolytes Replenish electrolytes as protocol Monitor wts. Reweigh as available, Provide vit. D supplement per vit. D 15 Monitor TF tolerance + need for TF adjustments. Monitor residuals. Residuals more than 500 ml stop tube feed for 2 hours. If repeated stop tube feed and contact MD. Monitor care goals RD to follow + available for consult by protocol. Addendum: 06/22/24 at [address] Amended: Links added.
--- NOTE | 2024-06-22 18:16 | NUR ---
[facility] CAME TO EVALUATE PATIENT AND STATED HE WOULD CALL TOMORROW TO [facility] TO SEE IF THEY HAD A BED AVAILABLE. PATIENT AND FAMILY WANTED NGT DISCONTINUED AND ALL IVF DC'D. VIVEK GOODSON AWARE.
[2024-06-22] MEDS ORDERED: LORazepam 2 MG/ML 1 ML VIAL IVP PRN (19:30)
--- NOTE | 2024-06-22 22:49 | PN ---
[facility] PROGRESS NOTE Date Patient Seen: Jun 22, 2024 Time of Visit: 13:45 Supervising Physician: DR. SISI GARCES Primary Care Physician: Self Referral, Outpatient Specialists: Inpatient Consults: Dr Mena. GABBY, Dr Hill PROBLEM LIST: Acute sepsis with septic shock, resolved Bilateral Lower Lobe Pneumonia + stenotrophomonas maltophilia ( Susceptible to Bactrim) POA Acute hepatic encephalopathy secondary to hyperammonemia Acute decompensated alcoholic liver cirrhosis, MELD score 19 Ascites secondary to above Type [address] elevation myocardial infarction Acute on chronic diastolic heart failure exacerbation Acute metabolic acidosis Thrombocytopenia Anemia of chronic disease Acute GI bleed secondary to gastric ulcer Severe protein calorie malnutrition [place] use disorder Alcohol use disorder INTERVAL HISTORY: Mr. Vickers is seen and evaluated in room 206, patient is awake alert and oriented times 2-3. Sclerae icteric. Clinical chart reviewed, events of the last 24 hours noted. Per RN report patient has failed MBSS and now with NG tube in place. abdominal pain under control today. Pending CT abdomen to rule out SBO. impression of small bowel dilation. mild bilateral pulmonary infiltrates still seen. small bilateral pleural effusions. Pt with no further nausea we will continue with bowel regimen and PT. no evidence of GI bleed in the last 24 hours, no melena or hematochezia. Pt si stable to downgrade from ICU. We will start D5 at 50 ml /hr. 06/22/24 Patient is a 53 year old gentleman awake, alert, well oriented, not in distress no chest pain. No SOB, no palpitations, no nausea or vomiting. No new issues, continue antibiotic , otherwise no pulmonary recommendations therefore plan is to sign off this case. REVIEW OF SYSTEMS: General: No malaise or fever. Neurological: No fainting episodes or seizures. HEENT: No nasal congestion or nasal secretion. Respiratory: No cough, shortness of breath, or wheezing Cardiac: No chest pain or palpitations. Gastrointestinal: No vomiting or diarrhea. Yes for abdominal distention/ Genitourinary: No dysuria hematuria. Skin: No rashes or lesions. Hematological: No bruises or bleeding. Musculoskeletal: No joint pains yes for generalized body pain Psychiatric: No depression or panic attacks. PHYSICAL EXAM: GENERAL: Awake alert and oriented times 2-3. Generalized weakness. Recovering slowly. HEENT: Sclera non icteric, dry mucosa NECK: Supple, no JVD, trachea midline LUNGS: Diminished breath sounds bilaterally. No wheezes HEART: Regular rate and rhythm. Normal S1 and S2, without murmurs ABD:Abdomen is distended, tympanic. No rebound, no guarding EXT: No clubbing cyanosis , swelling to bilateral lower extremities. NEURO: pt is awake alert and oriented x 2-3 , GBW and generalized pain Vital Signs (last 8hr) Date Time Temp Pulse Resp B/P (MAP) Pulse Ox O2 Delivery O2 Flow Rate FiO2 06/22/24 19:30 97 Room Air* 0 21 06/22/24 18:43 117 20 N/A Room Air 21 06/22/24 18:40 117 20 06/22/24 18:36 99.1 121 16 141/82 978 Room Air 06/22/24 16:22 98.4 100 20 134/88 96 Nasal Cannula 3.0 LABS: Hematology Labs: Test 06/22/24 05:24 Range/Units White Blood Count 17.2 H 4.8-10.8 K/uL Red Blood Count 2.96 L 4.50-6.20 MIL/uL Hemoglobin 10.2 L 14.0-18.0 g/dL Hematocrit 31.4 L 42-54 % Mean Corpuscular Volume 106.1 H 79-99 fL Mean Corpuscular Hemoglobin 34.5 H 27.0-33.0 pg Mean Corpuscular Hemoglobin Concent 32.5 32.0-36.0 g/dL Red Cell Distribution Width 15.5 11.0-15.5 % Platelet Count 290 # 130-400 K/uL Mean Platelet Volume 12.4 H 7.5-10.5 fL Immature Granulocyte % (Auto) 1.0 0-1 % Neutrophils (%) (Auto) 79.1 H 40.0-77.0 % Lymphocytes (%) (Auto) 10.3 L 21.0-51.0 % Monocytes (%) (Auto) 8.3 3.0-13.0 % Eosinophils (%) (Auto) 0.6 0.0-8.0 % Basophils (%) (Auto) 0.7 0.0-5.0 % Neutrophils # (Auto) 13.6 H 1.8-7.7 K/uL Lymphocytes # (Auto) 1.8 1.0-4.8 K/uL Monocytes # (Auto) 1.4 H 0.1-1.0 K/uL Eosinophils # (Auto) 0.11 0.00-0.70 K/uL Basophils # (Auto) 0.12 0.00-0.20 K/uL Absolute Immature Granulocyte (auto 0.17 0-1 K/uL Nucleated Red Blood Cells 0.2 H 0.0-0.19 % Chemistry Labs: Test 06/22/24 15:41 06/22/24 05:24 06/21/24 04:00 Range/Units Whole Blood Glucose 135 H 70-110 MG/DL Sodium Level 154 H 136-145 mmol/L Potassium Level 3.9 3.5-5.1 mmol/L Chloride Level 121 *H 101-111 mmol/L Carbon Dioxide Level 19 L 21-32 mmol/L Blood Urea Nitrogen 41 H 7-18 mg/dL Creatinine 1.6 H 0.5-1.3 mg/dL Glomerular Filtration Rate Calc 51 >90 mL/min Random Glucose 124 H 70-105 mg/dL Total Calcium 8.3 L 8.5-10.1 mg/dL Total Bilirubin 3.9 H 0.2-1.0 mg/dL Aspartate Amino Transf (AST/SGOT) 104 H 10-37 U/L Alanine Aminotransferase (ALT/SGPT) 50 12-78 U/L Alkaline Phosphatase 176 H 50-136 U/L Total Creatine Kinase 22 # 21-232 U/L B-Type Natriuretic Peptide 539 H 0-100 pg/mL Total Protein 5.4 L 6.0-8.3 g/dL Albumin 1.8 L 3.5-5.0 g/dL Magnesium Level 1.90 1.80-2.40 mg/dL Coagulation Labs: Test 06/22/24 05:24 Range/Units Prothrombin Time 15.5 H 9.6-11.6 SEC Prothromb Time International Ratio 1.43 H 0.85-1.15 Activated Partial Thromboplast Time 34.5 26.3-35.5 SEC DIAGNOSTICS / RADIOLOGY RESULTS: [ ] PLAN sign off this case, do not hesitate to contact us if necessary. IV hydration electrolyte replacement therapy fall precautions NEURO: Minimize central acting medications as possible. Maintain fall precautions, adequate lighting during the day PULMONARY: Supplemental 02 as needed. Maintain aspiration precautions at all times CARDIOVASCULAR: Follow hemodynamics. Vital signs per facility protocol GI & NUTRITION: Continue with nutritional support. Continue stool softeners and laxatives as needed. KIDNEYS & ELECTROLYTES: Strict monitoring of intake, output and overall fluid balance. Avoid nephrotoxic medications to the extent possible. Medications to be dosed according to renal function. Monitor electrolytes and replace as needed ENDOCRINE: Maintain blood glucose between 100-180 at all times. Hypoglycemia protocol in place INFECTIOUS DISEASE: Trend temperature, WBC and procalcitonin level Follow cultures, deescalate antibiotics as soon as possible. Panculture if new onset fever ONCOLOGY/HEMATOLOGY/COAGULATION: Monitor for s/s of bleeding Monitor hemoglobin, coagulation studies as needed SKIN: Pressure ulcer prevention per facility protocol Specialty mattress ORTHO/REHAB: Continue PT/OT Prophylaxis: Continue GI and DVT prophylaxis Code Status: Full Resuscitation Disposition: TBD ATTESTATION BY PHYSICIAN Documentation assistance provided by a scribe, information recorded by the scribe was done at my direction and has been reviewed and validated by me." SISI WANG MD I personally scribed for SISI WANG MD ([email or web address]) on 06/22/24 at 22:49. Electronically submitted by Oliva Allen ([id number]). SISI WANG MD Jun 22, 2024 22:49
[2024-06-23] VITALS (11 sets, daily range): BP systolic 130–143; BP diastolic 92; PULSE 110–125; RESP 18–20; TEMP 98.4–99.1; O2SAT 93–97
--- NOTE | 2024-06-23 01:51 | PN ---
INFECTIOUS DISEASE FOLLOWUP NOTE DATE OF SERVICE: 06/22/2024 SUBJECTIVE: The patient is seen and examined at bedside. No fever, no chills. No nausea or vomiting. Abdominal distention . The patient underwent paracentesis today with 3.4 L of fluid removed. The patient is possible hospice. PHYSICAL EXAMINATION: VITAL SIGNS: Temperature 98.1. EYES: No icterus. ____. HENT: NG tube in place. NECK: Supple, no JVD or thyromegaly. LUNGS: Good air entry. No rales, no rhonchi. CARDIOVASCULAR: S1, S2 regular. No murmurs heard. ABDOMEN: Full, soft, nontender. Bowel sound is present. CENTRAL NERVOUS SYSTEM: The patient is awake, alert, oriented x 3, bedbound debility. SKIN: No rashes, no itchiness. LYMPHATIC: No peripheral lymphadenopathy. ASSESSMENT: * A 53-year-old male with multiple recurrent pneumonia. * Hypoxic respiratory failure. * Thrombocytopenia. * Liver cirrhosis. * Ascites . * Malnutrition. * Debility. PLAN: * Continue cefepime. * Continue . * Monitor electrolytes. * Continue antiemetic. TID: [id number] RECEIPT: [id number]
--- NOTE | 2024-06-23 08:09 | PN ---
[facility] PROGRESS NOTE Date of Service: Jun 23, 2024 Time of Service: 08:05 SUBJECTIVE: 53-year-old male who was admitted with diagnosis of septic shock and acute respiratory failure secondary to Gram neg pneumonia, hepatic encephalopathy from alcoholic liver cirrhosis, acute on chronic HF. Due to decompensation in the ER he was intubated and admitted to the ICU. Successfully extubated on 06/17/24. MBSS showing severe pharyngeal dysphasia. GI team does not recommend peg tube due to ascites. Recommended palliative vs hospice moving forward. Today at bedside evaluation, patient and family have elected to proceed with inpatient hospice with Jeni at [facility]. Elected for DNR status. Continue comfort measures. Case management coordinating for inpatient hospice. Pending acceptance. REVIEW OF SYSTEMS 12 point review of systems negative unless noted in HPI PHYSICAL EXAM GENERAL APPEARANCE: The patient is awake, alert, and oriented, in no acute cardiopulmonary distress. NEUROLOGICAL: Cranial nerves II-XII grossly intact. Motor is 5/5 in bilateral upper and lower extremities proximal to distal. No sensory deficits. HEENT: Face is symmetric. Pupils are equal and reactive. Extraocular movements are intact. NECK: Supple. No JVD. No thyromegaly. No submental, submandibular, pre- /postauricular, occipital or supraclavicular lymphadenopathy. CHEST: Normal chest expansion. No Telemetry. LUNGS: Decreased bilateral breath sounds on the lower bases per auscultation CARDIOVASCULAR: Regular. S1 and S2 normal. No appreciable rubs, murmurs or gallops. ABDOMEN: Soft, nontender, and nondistended. There is no rebound, voluntary guarding, or rigidity. : Deferred. Gomez. EXTREMITIES: Non-edematous and not cyanotic. No clubbing. Good capillary refill. SKIN: No skin breakdown. Vital Signs (last 8hr) Date Time Temp Pulse Resp B/P (MAP) Pulse Ox O2 Delivery O2 Flow Rate FiO2 06/23/24 07:18 125 20 N/A Room Air 21 06/23/24 07:17 125 20 LABS: Laboratory: Test 06/22/24 15:41 06/22/24 12:00 06/22/24 05:24 Range/Units Whole Blood Glucose 135 H 70-110 MG/DL Body Fluid Source ASCITES Body Fluid Volume 3300 mL Body Fluid Color YELLOW LT YELLOW Body Fluid Supernatant Appearance CLEAR CLEAR Body Fluid WBC 18 /cu. mm. Body Fluid RBC 376 /cu. mm. Body Fluid Neutrophils % White Blood Count 17.2 H 4.8-10.8 K/uL Red Blood Count 2.96 L 4.50-6.20 MIL/uL Hemoglobin 10.2 L 14.0-18.0 g/dL Hematocrit 31.4 L 42-54 % Mean Corpuscular Volume 106.1 H 79-99 fL Mean Corpuscular Hemoglobin 34.5 H 27.0-33.0 pg Mean Corpuscular Hemoglobin Concent 32.5 32.0-36.0 g/dL Red Cell Distribution Width 15.5 11.0-15.5 % Platelet Count 290 # 130-400 K/uL Mean Platelet Volume 12.4 H 7.5-10.5 fL Immature Granulocyte % (Auto) 1.0 0-1 % Neutrophils (%) (Auto) 79.1 H 40.0-77.0 % Lymphocytes (%) (Auto) 10.3 L 21.0-51.0 % Monocytes (%) (Auto) 8.3 3.0-13.0 % Eosinophils (%) (Auto) 0.6 0.0-8.0 % Basophils (%) (Auto) 0.7 0.0-5.0 % Neutrophils # (Auto) 13.6 H 1.8-7.7 K/uL Lymphocytes # (Auto) 1.8 1.0-4.8 K/uL Monocytes # (Auto) 1.4 H 0.1-1.0 K/uL Eosinophils # (Auto) 0.11 0.00-0.70 K/uL Basophils # (Auto) 0.12 0.00-0.20 K/uL Absolute Immature Granulocyte (auto 0.17 0-1 K/uL Nucleated Red Blood Cells 0.2 H 0.0-0.19 % Prothrombin Time 15.5 H 9.6-11.6 SEC Prothromb Time International Ratio 1.43 H 0.85-1.15 Activated Partial Thromboplast Time 34.5 26.3-35.5 SEC Sodium Level 154 H 136-145 mmol/L Potassium Level 3.9 3.5-5.1 mmol/L Chloride Level 121 *H 101-111 mmol/L Carbon Dioxide Level 19 L 21-32 mmol/L Blood Urea Nitrogen 41 H 7-18 mg/dL Creatinine 1.6 H 0.5-1.3 mg/dL Glomerular Filtration Rate Calc 51 >90 mL/min Random Glucose 124 H 70-105 mg/dL Total Calcium 8.3 L 8.5-10.1 mg/dL Total Bilirubin 3.9 H 0.2-1.0 mg/dL Aspartate Amino Transf (AST/SGOT) 104 H 10-37 U/L Alanine Aminotransferase (ALT/SGPT) 50 12-78 U/L Alkaline Phosphatase 176 H 50-136 U/L Total Creatine Kinase 22 # 21-232 U/L B-Type Natriuretic Peptide 539 H 0-100 pg/mL Total Protein 5.4 L 6.0-8.3 g/dL Albumin 1.8 L 3.5-5.0 g/dL Current Medications Medications (Trade) Dose Ordered Sig/Quan Route PRN Reason Start Time Stop Time Status Last Admin Dose Admin Acetaminophen (TYLenol 500MG TAB) 500 mg Q6H PRN PO TEMP < 101.1 AND/OR HEADACHE 06/09/24 18:00 06/22/24 18:51 DC 06/14/24 17:35 500 MG Albumin Human 100 ml @ 50 mls/hr AD IV 06/12/24 11:00 06/14/24 10:59 DC 06/12/24 13:30 50 MLS/HR Albumin Human 250 ml @ 0 mls/hr AD IV 06/17/24 11:00 06/19/24 10:59 DC 06/17/24 10:54 250 MLS/HR Artificial Tears (Artificial Tears) 1 DROP OR AD Q8H OU 06/09/24 09:00 07/09/24 08:59 06/22/24 16:25 1 DROP Bisacodyl (DulcoLAX) 10 mg DAILY RC 06/22/24 09:00 06/22/24 18:51 DC 06/22/24 09:14 10 MG Cefepime HCl (MAXipime 2 gm vial) 2 gm Q12H IVPB 06/11/24 05:00 06/18/24 15:59 DC 06/18/24 05:05 2 GM Cefepime HCl (MAXipime 2 gm vial) 2 gm Q12H IVPB 06/18/24 16:30 06/18/24 16:06 DC Cefepime HCl (MAXipime 2 gm vial) 2 gm Q12H IVPB 06/18/24 17:00 06/19/24 14:11 DC 06/19/24 02:32 2 GM Cefepime HCl (MAXipime 2 gm vial) 2 gm Q8H IVPB 06/09/24 09:00 06/10/24 19:49 DC 06/10/24 16:44 2 GM Chlorhexidine Gluconate (Peridex) 15 ml Q8H MM 06/09/24 09:00 06/21/24 09:21 DC 06/21/24 01:29 15 ML Dexmedetomidine/ Sodium Chloride (PRECEdex 400MCG/ 100ML-NS) 400 mcg PROTOCOL IV 06/11/24 20:30 06/21/24 09:21 DC 06/20/24 23:18 400 MCG Dextrose 1,000 ml @ 50 mls/hr Q20H IV 06/21/24 09:30 06/22/24 18:51 DC 06/21/24 10:08 50 MLS/HR Dextrose/Sodium Chloride 1,000 ml @ 0 mls/hr AD IV 06/09/24 10:00 06/11/24 13:29 DC Diazepam (VALium 5 mg TAB) 10 mg Q12H NG 06/18/24 16:00 06/20/24 12:51 DC 06/20/24 04:31 10 MG Diazepam (VALium 5 mg TAB) 15 mg Q12H NG 06/20/24 16:00 06/22/24 18:51 DC 06/22/24 16:25 15 MG Fentanyl Citrate 100 ml @ 2.5 mls/hr PROTOCOL IV 06/09/24 06:30 06/12/24 13:28 DC 06/11/24 21:06 2.5 MLS/HR Folic Acid (FolVITE 5 MG/ML VIAL) 1 mg DAILY IV 06/09/24 18:00 06/22/24 18:51 DC 06/22/24 09:14 1 MG Furosemide (LASix 20MG VIAL) 20 mg DAILY IV 06/13/24 09:00 06/13/24 09:20 DC 06/13/24 07:59 20 MG Furosemide (LASix 20MG VIAL) 20 mg DAILY IV 06/19/24 09:00 06/20/24 14:00 DC 06/20/24 08:17 20 MG Furosemide (LASix 20MG VIAL) 20 mg Q12H IV 06/09/24 12:00 06/09/24 11:26 DC Furosemide (LASix 20MG VIAL) 20 mg Q6H6 IV 06/09/24 12:00 06/12/24 07:38 DC 06/12/24 06:46 20 MG Furosemide (LASix 20MG VIAL) 40 mg Q12H IV 06/12/24 08:00 06/12/24 14:58 DC 06/12/24 08:16 40 MG Heparin Sodium/ Dextrose 250 ml @ 0 mls/hr PROTOCOL IV 06/09/24 03:30 06/09/24 09:45 DC 06/09/24 03:31 10.78 MLS/HR Insulin Human Regular (humuLIN R 100 UNIT/ML 3ML) INSULIN SLIDING SCAL... Q6H6 SQ 06/11/24 12:00 06/13/24 11:22 DC 06/13/24 06:45 6 UNIT Insulin Human Regular (humuLIN R 100 UNIT/ML 3ML) INSULIN SLIDING SCAL... Q6H6 SQ 06/13/24 12:00 06/22/24 18:51 DC 06/17/24 00:51 6 UNIT Insulin Human Regular 100 unit/ Sodium Chloride 101 ml @ 0 mls/hr PROTOCOL IV 06/09/24 10:00 06/11/24 13:29 DC 06/09/24 11:41 1 MLS/HR Ipratropium [place] (AtrovENT UD) 0.5 MG [id number] IH 06/14/24 14:00 06/19/24 09:03 DC 06/19/24 06:21 0.5 MG Ipratropium [place] (AtrovENT UD) 0.5 MG [id number] IH 06/19/24 12:00 07/14/24 13:59 06/23/24 07:16 0.5 MG Lactated Ringer's 1,000 ml @ 50 mls/hr Q20H IV 06/13/24 09:30 06/13/24 14:44 DC 06/13/24 11:18 50 MLS/HR Lactated Ringer's 1,000 ml @ 75 mls/hr [id number] IV 06/15/24 11:00 06/17/24 09:36 DC 06/17/24 03:57 75 MLS/HR Lactated Ringer's (Lactated Ringers 1000ml) 500 ml BOLUS IV 06/15/24 10:00 06/15/24 12:31 DC 06/15/24 10:04 500 ML Lactulose (Constulose 20gm/ 30ml Udcup) 20 gm BID PO 06/21/24 21:00 06/22/24 18:51 DC 06/22/24 09:13 20 GM Lactulose (Constulose 20gm/ 30ml Udcup) 20 gm DAILY PO 06/12/24 09:00 06/21/24 09:25 DC 06/20/24 08:16 20 GM Levofloxacin/ Dextrose (LEvaquIN 750 MG/ D5W 150 ML) 750 mg Q24H IV 06/09/24 06:30 06/09/24 08:29 DC Lorazepam (AtiVAN) 0.5 mg Q8H PRN IVP ANXIETY/AGITATION 06/22/24 19:30 06/29/24 19:29 Lorazepam (AtiVAN) 2 mg Q4H PRN IVP ALCOHOL WITHDRAWAL PROTOCOL 06/09/24 18:00 06/16/24 17:59 DC Lorazepam (AtiVAN) 4 mg Q2H PRN IVP ALCOHOL WITHDRAWAL PROTOCOL 06/09/24 18:00 06/16/24 17:59 DC Magnesium Sulfate 50 ml @ 0 mls/hr PROTOCOL IV 06/09/24 10:00 06/11/24 13:29 DC 06/11/24 07:13 25 MLS/HR Magnesium Sulfate 50 ml @ 0 mls/hr PROTOCOL PRN IV OTHER [SEE ORDER COMMENTS] 06/09/24 01:00 06/09/24 06:50 DC 06/09/24 01:03 25 MLS/HR Magnesium Sulfate 50 ml @ 0 mls/hr PROTOCOL PRN IV OTHER [SEE ORDER COMMENTS] 06/09/24 07:00 06/09/24 08:35 DC Magnesium Sulfate 50 ml @ 0 mls/hr PROTOCOL PRN IV low magnesium 06/09/24 08:30 06/09/24 09:46 DC Magnesium Sulfate 50 ml @ 0 mls/hr PROTOCOL PRN IV MAGNESIUM PROTOCOL 06/11/24 15:00 06/22/24 18:51 DC 06/19/24 06:32 25 MLS/HR Meropenem (Merrem 1gm) 1 gm Q12H IV 06/18/24 20:00 06/18/24 16:05 DC Meropenem (Merrem 1gm) 1 gm Q12H IV 06/19/24 14:30 06/22/24 18:51 DC 06/22/24 14:45 1 GM Meropenem (Merrem 500mg) 500 mg ONCE IV 06/18/24 16:00 06/18/24 16:01 DC Metronidazole/ Sodium Chloride 100 ml @ 100 mls/hr Q8H6 IVPB 06/09/24 14:00 06/19/24 13:59 DC 06/19/24 06:04 100 MLS/HR Midazolam HCl (Midazolam 100mg-0.9% NS 100ml) 100 ml PROTOCOL IV 06/09/24 15:30 06/12/24 10:33 DC 06/11/24 08:05 100 ML Midodrine (PROAMatine 5 MG TABLET) 10 mg TID PO 06/11/24 14:00 06/14/24 10:06 DC 06/14/24 07:47 10 MG Midodrine (PROAMatine 5 MG TABLET) 15 mg TID PO 06/14/24 14:00 06/22/24 18:51 DC 06/21/24 21:59 15 MG Multivitamins Therapeutic (Multivitamin Tablet) 1 tab DAILY PO 06/10/24 09:00 06/22/24 18:51 DC 06/22/24 09:13 1 TAB Norepinephrine Bitartrate (Norepineph 16 Mg/250ml NS Premix) HIGH ALERT Init... PROTOCOL IV 06/09/24 12:30 06/21/24 09:21 DC 06/13/24 19:21 16 MG Octreotide Acetate 1250 mcg/ Sodium Chloride 250 ml @ 0 mls/hr PROTOCOL IV 06/09/24 08:30 06/13/24 13:43 DC 06/11/24 13:17 5 MLS/HR Octreotide Acetate 500 mcg/ Sodium Chloride 100 ml @ 0 mls/hr PROTOCOL IV 06/09/24 04:30 06/09/24 08:13 DC 06/09/24 05:50 5 MLS/HR Ondansetron HCl (zoFRAN 4MG INJ) 4 mg Q4H PRN IV NAUSEA 06/09/24 18:00 07/09/24 17:59 Pantoprazole Sodium (PROTonix 40MG INJ) 40 mg BID IVP 06/11/24 21:00 06/22/24 18:51 DC 06/22/24 09:14 40 MG Pantoprazole Sodium 80 mg/ Sodium Chloride 100 ml @ 10 mls/hr Q10H IVP 06/09/24 04:00 06/11/24 13:24 DC 06/11/24 08:04 10 MLS/HR Pharmacy Profile Note (Pharmacy Communication) 1 each PROTOCOL PRN MISC ETOH Withdrawal Score changes 06/09/24 18:00 06/16/24 17:59 DC Phenylephrine HCl 10 mg/Sodium Chloride 250 ml @ 0 mls/hr PROTOCOL PRN IV PROTOCOL 06/09/24 07:00 06/22/24 18:51 DC 06/09/24 09:27 96 MLS/HR Potassium Chloride 20 meq/ Sodium Chloride 1,010 ml @ 0 mls/hr PROTOCOL IV 06/09/24 10:00 06/11/24 13:29 DC Potassium Chloride/Dextrose/ Sod Cl 1,000 ml @ 0 mls/hr AD IV 06/09/24 10:00 06/11/24 13:29 DC Potassium Chloride 100 ml @ 50 mls/hr AD PRN IV POTASSIUM PROTOCOL 06/09/24 07:00 06/09/24 08:34 DC Potassium Chloride 100 ml @ 50 mls/hr AD PRN IV POTASSIUM PROTOCOL 06/09/24 08:30 06/22/24 18:51 DC 06/19/24 06:31 50 MLS/HR Potassium Chloride 100 ml @ 100 mls/hr AD PRN IV POTASSIUM PROTOCOL 06/09/24 08:30 06/09/24 08:41 DC Potassium Chloride (K-Dur/Klor-Con 20meq) 20 meq AD PRN PO POTASSIUM PROTOCOL 06/09/24 08:30 06/22/24 18:51 DC Potassium Chloride (KCl 10% Elixir 20meq/15ml) 20 meq AD PRN PO POTASSIUM PROTOCOL 06/09/24 08:30 06/22/24 18:51 DC 06/17/24 08:17 20 MEQ Propofol (DIPRivan 1000MG/ 100ML) 1,000 mg PROTOCOL PRN IV SEDATION 06/14/24 17:30 06/21/24 09:21 DC Sodium Bicarbonate 150 meq/Dextrose 1,150 ml @ 150 mls/hr Q7H40M IVP 06/09/24 00:30 06/09/24 18:11 DC 06/09/24 01:18 150 MLS/HR Sodium Chloride 250 ml @ 0 mls/hr Q0M IV 06/19/24 05:00 06/21/24 09:21 DC 06/19/24 05:07 0 MLS/HR Sodium Chloride 500 ml @ 0 mls/hr Q0M IV 06/17/24 18:00 06/18/24 15:59 DC 06/17/24 18:26 500 MLS/HR Sodium Chloride 1,000 ml @ 75 mls/hr [id number] IV 06/17/24 18:00 06/18/24 15:59 DC 06/18/24 08:49 75 MLS/HR Sodium Chloride 1,000 ml @ 200 mls/hr PROTOCOL IV 06/09/24 10:00 06/11/24 13:29 DC Thiamine HCl (Vitamin B-1) 300 mg DAILY IV 06/09/24 18:00 06/22/24 18:51 DC 06/22/24 09:13 300 MG Trimethoprim/ Sulfamethoxazole (BactRIM DS) 1 tab BID PO 06/21/24 09:00 06/22/24 18:51 DC 06/22/24 09:13 1 TAB Vancomycin HCl 250 ml @ 125 mls/hr Q12H IV 06/09/24 22:00 06/10/24 21:50 DC 06/10/24 10:06 125 MLS/HR Vancomycin HCl 250 ml @ 125 mls/hr Q24H IV 06/11/24 22:00 06/12/24 21:39 DC 06/11/24 21:10 125 MLS/HR Vancomycin HCl 250 ml @ 125 mls/hr Q24H IV 06/13/24 22:00 06/18/24 15:59 DC 06/17/24 20:15 125 MLS/HR Vancomycin HCl (Vancomycin Protocol) 1 each AD IV 06/09/24 09:00 06/18/24 15:59 DC Vasopressin 20 units/Sodium Chloride 100 ml @ 0 mls/hr PROTOCOL IV 06/09/24 07:00 06/22/24 18:51 DC 06/09/24 08:20 9 MLS/HR Wound Care/ Dressing Products (Venelex Ointment) 1 APPL TID TP 06/14/24 21:00 07/14/24 20:59 06/22/24 21:55 1 GM DIAGNOSTICS / RADIOLOGY: [ ] ASSESSMENT: Acute respiratory failure secondary to Gram-negative pneumonia POA Septic shock secondary to Gram-negative pneumonia/hepatic encephalopathy/acute on chronic diastolic HF, resolved Alcohol withdrawals Bilateral lower lobe bacterial Gram-negative pneumonia, POA Severe pharyngeal dysphagia, POA Acute hepatic encephalopathy, resolved POA Combined alcoholic and fatty liver cirrhosis, POA MELD Score 19 points (19.6% estimated three month mortality) NSTEMI type 2, 2/2 supply and demand mismatch POA Acute on chronic Stage I Diastolic Heart Failure w/ EF of 40% POA Elevated troponin R/O ACS POA Elevated D-dimer of 3989, negative for DVT, Well score for PE 3 ( Moderate score) Metabolic acidosis POA Ascites Hepatomegaly Acute blood loss anemia POA Acute upper and lower GI bleed, POA Acute thrombocytopenia POA Acute on chronic diastolic CHF POA Hyperglycemia POA Hypomagnesemia POA Positive for THC POA Active alcohol drinker POA Acute complicated cystitis POA Hypertension POA acute GI bleed POA s/p EGD 06/13/24 non bleeding ulcer PLAN: continue admission in med tele Successfully extubated 06/17. NPO Elected to remove NG tube Continue comfort measures started on 04/21/2025 Continue supplemental O2 to keep O2 saturations above 92%, currently satting 96% on 3L/nc Speech swallow study patient has failed 06/19/2024 Patient failed barium swallow test 06/20/2024 In reference to the ascites: Discussed with Adela RECIO, not a candidate for PEG tube placement recommends palliative vs hospice. Spoke to patient's sister Ely, regarding recommendations and she will talk to patient and patient's brother Continue NPO Continue tube feeding via ng tube Continue to follow critical care input and recommendation Repeated 2D echo LVEF is 50 to 55% no regional wall motion abnormalities noted in the views obtained. 06/18/[address] Mora for antimicrobial stewardship. Respiratory cultures positive for stenotrophomonas maltophilia Monitor and replace electrolytes Continue to work with physical therapy Monitor a.m. labs PRN Treatment - Add when necessary meds for nausea, vomiting, pain, constipation, insomnia. DVT/GI prophylaxis- Continue SCDs and Protonix at current doses. DNR code status Pending acceptance to [facility] with [facility] hospice This document was generated in part using voice recognition software, occasional wrong word or sound alike substitutions may have occurred due to the inherent limitations of voice recognition software. Read the chart carefully and recognize using context, where the substitutions have occurred. Although every effort was made to edit the content, meat blender and typing errors may occur SHALOM ZAYAS APRN Jun 23, 2024 08:08
--- NOTE | 2024-06-23 08:11 | DS ---
Discharge Summary Hospital Course Summary: 53-year-old male who was admitted with diagnosis of septic shock and acute respiratory failure secondary to Gram neg pneumonia, hepatic encephalopathy from alcoholic liver cirrhosis, acute on chronic HF. Due to decompensation in the ER he was intubated and admitted to the ICU. Successfully extubated on 06/17/24. MBSS showing severe pharyngeal dysphasia. GI team does not recommend peg tube due to ascites. Recommended palliative vs hospice moving forward. Today at bedside evaluation, patient and family have elected to proceed with inpatient hospice with Jeni at [facility]. Elected for DNR status. Continue comfort measures. Case management coordinating for inpatient hospice. We will transition care to hospice MD. Automobile Service Advisor(s): Infectious disease specialist Dr. Mora Critical care team Dr. Mccollum Cardiology Dr. Hill Gastroenterology Dr. Jose Francisco Marie Hematology Dr. Contreras paint specialist Dr. Chahal Procedure(s): Central line placement to right internal jugular vein via intraoperative ultrasound guidance by [facility] AMIN/Dr. Chacko Assessment/Plan: ASSESSMENT: Acute respiratory failure secondary to Gram-negative pneumonia POA Septic shock secondary to Gram-negative pneumonia/hepatic encephalopathy/acute on chronic diastolic HF, resolved Alcohol withdrawals Bilateral lower lobe bacterial Gram-negative pneumonia, POA Severe pharyngeal dysphagia, POA Acute hepatic encephalopathy, resolved POA Combined alcoholic and fatty liver cirrhosis, POA MELD Score 19 points (19.6% estimated three month mortality) NSTEMI type 2, 2/2 supply and demand mismatch POA Acute on chronic Stage I Diastolic Heart Failure w/ EF of 40% POA Elevated troponin R/O ACS POA Elevated D-dimer of 3989, negative for DVT, Well score for PE 3 ( Moderate score) Metabolic acidosis POA Ascites Hepatomegaly Acute blood loss anemia POA Acute upper and lower GI bleed, POA Acute thrombocytopenia POA Acute on chronic diastolic CHF POA Hyperglycemia POA Hypomagnesemia POA Positive for THC POA Active alcohol drinker POA Acute complicated cystitis POA Hypertension POA acute GI bleed POA s/p EGD 06/13/24 non bleeding ulcer PLAN: continue admission in [facility] tele Successfully extubated 06/17. NPO Elected to remove NG tube Continue comfort measures started on 04/21/2025 Continue supplemental O2 to keep O2 saturations above 92%, currently satting 96% on 3L/nc Speech swallow study patient has failed 06/19/2024 Patient failed barium swallow test 06/20/2024 In reference to the ascites: Discussed with Adela RECIO, not a candidate for PEG tube placement recommends palliative vs hospice. Spoke to patient's sister Ely, regarding recommendations and she will talk to patient and patient's brother Continue NPO Continue tube feeding via ng tube Continue to follow critical care input and recommendation Repeated 2D echo LVEF is 50 to 55% no regional wall motion abnormalities noted in the views obtained. 06/18/[address] Mora for antimicrobial stewardship. Respiratory cultures positive for stenotrophomonas maltophilia Monitor and replace electrolytes Continue to work with physical therapy Monitor a.m. labs PRN Treatment - Add when necessary meds for nausea, vomiting, pain, constipation, insomnia. DVT/GI prophylaxis- Continue SCDs and Protonix at current doses. DNR code status Pending acceptance to [facility] with [facility] This document was generated in part using voice recognition software, occasional wrong word or sound alike substitutions may have occurred due to the inherent limitations of voice recognition software. Read the chart carefully and recognize using context, where the substitutions have occurred. Although every effort was made to edit the content, internal sales engineer and typing errors may occur Discharge Instructions: Transition care to hospice MD This case was discussed with Dr. Arango and above plan was formulated Home Medications: Reported Medications Folic Acid (Folvite) 1 Mg Tab, 1 TAB PO DAILY for 30 Days, #30 TAB 0 Refills 06/09/24 Losartan Potassium (Losartan Potassium) 25 Mg Tablet, 1 TAB PO DAILY for 30 Days, #30 TAB 0 Refills 06/09/24 Carvedilol (Carvedilol) 12.5 Mg Tablet, 1 TAB PO BID for 30 Days, #60 TAB 0 Refills 06/09/24 Furosemide (Furosemide) 40 Mg Tablet, 1 TAB PO DAILY for 30 Days, #30 TAB 0 Refills 06/09/24 Time spent arranging discharge: 31-60 minutes SHALOM ZAYAS APRN Jun 23, 2024 08:11
--- NOTE | 2024-06-23 09:22 | NUR ---
DCP: [facility] WITH [facility] [phone] met with Abhi and nurse Lucita. there is a bed at [facility], and DME has been ordered. Sister to go tour facility within the hour. Dc orders are in place. Clemencia MACIAS made aware. Nurse aware of 2pm deadline. Abhi to notify when DME has been delivered
--- NOTE | 2024-06-23 13:10 | NUR ---
DC ON HOLD Per Abhi, sister has not gone to [facility] to tour, she states she has appt at [facility] with home and will go after. Pt will not make 2pm deadline. Clemencia made aware
--- NOTE | 2024-06-23 15:00 | NUR ---
PRIOR AUTH Per Abhi, [employer] requires Prior Auth and pt has not seen [facility] in over 6 months. Abhi left message at his clinic for call back. Peter working on prior auth needed for acceptance
--- NOTE | 2024-06-23 15:43 | PN ---
GASTROENTEROLOGY PROGRESS NOTE Date of Visit: Jun 23, 2024 Time of Visit: 15:43 Events / Notes: No acute events overnight. EGD with gastric ulcer. We were called for PEG; however, patient has ascites. Review of Systems: CONSTITUTIONAL: No malaise or change in sensation of wellbeing. ENMT: No rhinorrhea, otorrhea, sinus pain, ear ache. CARDIOVASCULAR: No angina, palpitations, orthopnea or paroxysmal dyspnea. RESPIRATORY: No SOB. GASTROINTESTINAL: No abdominal pain, nausea, vomiting, diarrhea, hematemesis, melena or change in the patient's habitual bowel movements consistency/number. GENITOURINARY: No dysuria, hematuria or change in bladder continence. MUSCULOSKELETAL: No new muscle pain or decrease in muscular strength. No new joint swelling, redness or tenderness. SKIN: No new rash. Physical Exam: GEN: Awake, alert, oriented in person, time and place, and in no acute distress. HEENT: No sinus tenderness. Tympanic membranes were not examined. No rhinorrhea. Oral pharyngeal mucosa is pink, moist and within normal limits. Neck is supple with no cervical lymphadenopathy, thyromegaly or JVD. CHEST: Inspection, palpation and percussion of the chest were unremarkable. Lung auscultation revealed normal breath sounds bilaterally. CARDIAC: PMI is within normal limits. Heart sounds are regular. Normal S1, S2. No gallop or murmur. ABD: Soft, non-tender and not distended. No peritoneal signs on palpation. No organomegaly. Normal bowel sounds. EXT: No cyanosis or clubbing. No edema. SKIN: Intact. No rashes. JOINTS: No evidence of synovitis or acute arthritis. NEURO: Alert and oriented to name, place and person. Cranial nerve examination is unremarkable. No focal motor deficits. Normal speech. Gait is normal. Strength is normal. Vital Signs (last 8hr) Date Time Temp Pulse Resp B/P (MAP) Pulse Ox O2 Delivery O2 Flow Rate FiO2 06/23/24 11:24 117 20 N/A Room Air 21 06/23/24 11:23 117 20 06/23/24 10:11 97 Room Air* 0 21 06/23/24 08:04 98.4 125 20 143/92 94 Nasal Cannula 3.0 Laboratory: [ ] Laboratory: Test 06/22/24 15:41 06/22/24 12:00 06/22/24 05:24 Range/Units Whole Blood Glucose 135 H 70-110 MG/DL Body Fluid Source ASCITES Body Fluid Volume 3300 mL Body Fluid Color YELLOW LT YELLOW Body Fluid Supernatant Appearance CLEAR CLEAR Body Fluid WBC 18 /cu. mm. Body Fluid RBC 376 /cu. mm. Body Fluid Neutrophils % White Blood Count 17.2 H 4.8-10.8 K/uL Red Blood Count 2.96 L 4.50-6.20 MIL/uL Hemoglobin 10.2 L 14.0-18.0 g/dL Hematocrit 31.4 L 42-54 % Mean Corpuscular Volume 106.1 H 79-99 fL Mean Corpuscular Hemoglobin 34.5 H 27.0-33.0 pg Mean Corpuscular Hemoglobin Concent 32.5 32.0-36.0 g/dL Red Cell Distribution Width 15.5 11.0-15.5 % Platelet Count 290 # 130-400 K/uL Mean Platelet Volume 12.4 H 7.5-10.5 fL Immature Granulocyte % (Auto) 1.0 0-1 % Neutrophils (%) (Auto) 79.1 H 40.0-77.0 % Lymphocytes (%) (Auto) 10.3 L 21.0-51.0 % Monocytes (%) (Auto) 8.3 3.0-13.0 % Eosinophils (%) (Auto) 0.6 0.0-8.0 % Basophils (%) (Auto) 0.7 0.0-5.0 % Neutrophils # (Auto) 13.6 H 1.8-7.7 K/uL Lymphocytes # (Auto) 1.8 1.0-4.8 K/uL Monocytes # (Auto) 1.4 H 0.1-1.0 K/uL Eosinophils # (Auto) 0.11 0.00-0.70 K/uL Basophils # (Auto) 0.12 0.00-0.20 K/uL Absolute Immature Granulocyte (auto 0.17 0-1 K/uL Nucleated Red Blood Cells 0.2 H 0.0-0.19 % Prothrombin Time 15.5 H 9.6-11.6 SEC Prothromb Time International Ratio 1.43 H 0.85-1.15 Activated Partial Thromboplast Time 34.5 26.3-35.5 SEC Sodium Level 154 H 136-145 mmol/L Potassium Level 3.9 3.5-5.1 mmol/L Chloride Level 121 *H 101-111 mmol/L Carbon Dioxide Level 19 L 21-32 mmol/L Blood Urea Nitrogen 41 H 7-18 mg/dL Creatinine 1.6 H 0.5-1.3 mg/dL Glomerular Filtration Rate Calc 51 >90 mL/min Random Glucose 124 H 70-105 mg/dL Total Calcium 8.3 L 8.5-10.1 mg/dL Total Bilirubin 3.9 H 0.2-1.0 mg/dL Aspartate Amino Transf (AST/SGOT) 104 H 10-37 U/L Alanine Aminotransferase (ALT/SGPT) 50 12-78 U/L Alkaline Phosphatase 176 H 50-136 U/L Total Creatine Kinase 22 # 21-232 U/L B-Type Natriuretic Peptide 539 H 0-100 pg/mL Total Protein 5.4 L 6.0-8.3 g/dL Albumin 1.8 L 3.5-5.0 g/dL Current Medications Medications (Trade) Dose Ordered Sig/Quan Route PRN Reason Start Time Stop Time Status Last Admin Dose Admin Acetaminophen (TYLenol 500MG TAB) 500 mg Q6H PRN PO TEMP < 101.1 AND/OR HEADACHE 06/09/24 18:00 06/22/24 18:51 DC 06/14/24 17:35 500 MG Albumin Human 100 ml @ 50 mls/hr AD IV 06/12/24 11:00 06/14/24 10:59 DC 06/12/24 13:30 50 MLS/HR Albumin Human 250 ml @ 0 mls/hr AD IV 06/17/24 11:00 06/19/24 10:59 DC 06/17/24 10:54 250 MLS/HR Artificial Tears (Artificial Tears) 1 DROP OR AD Q8H OU 06/09/24 09:00 07/09/24 08:59 06/23/24 09:00 1 DROP Bisacodyl (DulcoLAX) 10 mg DAILY RC 06/22/24 09:00 06/22/24 18:51 DC 06/22/24 09:14 10 MG Cefepime HCl (MAXipime 2 gm vial) 2 gm Q12H IVPB 06/11/24 05:00 06/18/24 15:59 DC 06/18/24 05:05 2 GM Cefepime HCl (MAXipime 2 gm vial) 2 gm Q12H IVPB 06/18/24 16:30 06/18/24 16:06 DC Cefepime HCl (MAXipime 2 gm vial) 2 gm Q12H IVPB 06/18/24 17:00 06/19/24 14:11 DC 06/19/24 02:32 2 GM Cefepime HCl (MAXipime 2 gm vial) 2 gm Q8H IVPB 06/09/24 09:00 06/10/24 19:49 DC 06/10/24 16:44 2 GM Chlorhexidine Gluconate (Peridex) 15 ml Q8H MM 06/09/24 09:00 06/21/24 09:21 DC 06/21/24 01:29 15 ML Dexmedetomidine/ Sodium Chloride (PRECEdex 400MCG/ 100ML-NS) 400 mcg PROTOCOL IV 06/11/24 20:30 06/21/24 09:21 DC 06/20/24 23:18 400 MCG Dextrose 1,000 ml @ 50 mls/hr Q20H IV 06/21/24 09:30 06/22/24 18:51 DC 06/21/24 10:08 50 MLS/HR Dextrose/Sodium Chloride 1,000 ml @ 0 mls/hr AD IV 06/09/24 10:00 06/11/24 13:29 DC Diazepam (VALium 5 mg TAB) 10 mg Q12H NG 06/18/24 16:00 06/20/24 12:51 DC 06/20/24 04:31 10 MG Diazepam (VALium 5 mg TAB) 15 mg Q12H NG 06/20/24 16:00 06/22/24 18:51 DC 06/22/24 16:25 15 MG Fentanyl Citrate 100 ml @ 2.5 mls/hr PROTOCOL IV 06/09/24 06:30 06/12/24 13:28 DC 06/11/24 21:06 2.5 MLS/HR Folic Acid (FolVITE 5 MG/ML VIAL) 1 mg DAILY IV 06/09/24 18:00 06/22/24 18:51 DC 06/22/24 09:14 1 MG Furosemide (LASix 20MG VIAL) 20 mg DAILY IV 06/13/24 09:00 06/13/24 09:20 DC 06/13/24 07:59 20 MG Furosemide (LASix 20MG VIAL) 20 mg DAILY IV 06/19/24 09:00 06/20/24 14:00 DC 06/20/24 08:17 20 MG Furosemide (LASix 20MG VIAL) 20 mg Q12H IV 06/09/24 12:00 06/09/24 11:26 DC Furosemide (LASix 20MG VIAL) 20 mg Q6H6 IV 06/09/24 12:00 06/12/24 07:38 DC 06/12/24 06:46 20 MG Furosemide (LASix 20MG VIAL) 40 mg Q12H IV 06/12/24 08:00 06/12/24 14:58 DC 06/12/24 08:16 40 MG Heparin Sodium/ Dextrose 250 ml @ 0 mls/hr PROTOCOL IV 06/09/24 03:30 06/09/24 09:45 DC 06/09/24 03:31 10.78 MLS/HR Insulin Human Regular (humuLIN R 100 UNIT/ML 3ML) INSULIN SLIDING SCAL... Q6H6 SQ 06/11/24 12:00 06/13/24 11:22 DC 06/13/24 06:45 6 UNIT Insulin Human Regular (humuLIN R 100 UNIT/ML 3ML) INSULIN SLIDING SCAL... Q6H6 SQ 06/13/24 12:00 06/22/24 18:51 DC 06/17/24 00:51 6 UNIT Insulin Human Regular 100 unit/ Sodium Chloride 101 ml @ 0 mls/hr PROTOCOL IV 06/09/24 10:00 06/11/24 13:29 DC 06/09/24 11:41 1 MLS/HR Ipratropium [place] (AtrovENT UD) 0.5 MG [id number] 06/14/24 14:00 06/19/24 09:03 DC 06/19/24 06:21 0.5 MG Ipratropium [place] (AtrovENT UD) 0.5 MG [id number] IH 06/19/24 12:00 07/14/24 13:59 06/23/24 11:22 0.5 MG Lactated Ringer's 1,000 ml @ 50 mls/hr Q20H IV 06/13/24 09:30 06/13/24 14:44 DC 06/13/24 11:18 50 MLS/HR Lactated Ringer's 1,000 ml @ 75 mls/hr [id number] IV 06/15/24 11:00 06/17/24 09:36 DC 06/17/24 03:57 75 MLS/HR Lactated Ringer's (Lactated Ringers 1000ml) 500 ml BOLUS IV 06/15/24 10:00 06/15/24 12:31 DC 06/15/24 10:04 500 ML Lactulose (Constulose 20gm/ 30ml Udcup) 20 gm BID PO 06/21/24 21:00 06/22/24 18:51 DC 06/22/24 09:13 20 GM Lactulose (Constulose 20gm/ 30ml Udcup) 20 gm DAILY PO 06/12/24 09:00 06/21/24 09:25 DC 06/20/24 08:16 20 GM Levofloxacin/ Dextrose (LEvaquIN 750 MG/ D5W 150 ML) 750 mg Q24H IV 06/09/24 06:30 06/09/24 08:29 DC Lorazepam (AtiVAN) 0.5 mg Q8H PRN IVP ANXIETY/AGITATION 06/22/24 19:30 06/29/24 19:29 Lorazepam (AtiVAN) 2 mg Q4H PRN IVP ALCOHOL WITHDRAWAL PROTOCOL 06/09/24 18:00 06/16/24 17:59 DC Lorazepam (AtiVAN) 4 mg Q2H PRN IVP ALCOHOL WITHDRAWAL PROTOCOL 06/09/24 18:00 06/16/24 17:59 DC Magnesium Sulfate 50 ml @ 0 mls/hr PROTOCOL IV 06/09/24 10:00 06/11/24 13:29 DC 06/11/24 07:13 25 MLS/HR Magnesium Sulfate 50 ml @ 0 mls/hr PROTOCOL PRN IV OTHER [SEE ORDER COMMENTS] 06/09/24 01:00 06/09/24 06:50 DC 06/09/24 01:03 25 MLS/HR Magnesium Sulfate 50 ml @ 0 mls/hr PROTOCOL PRN IV OTHER [SEE ORDER COMMENTS] 06/09/24 07:00 06/09/24 08:35 DC Magnesium Sulfate 50 ml @ 0 mls/hr PROTOCOL PRN IV low magnesium 06/09/24 08:30 06/09/24 09:46 DC Magnesium Sulfate 50 ml @ 0 mls/hr PROTOCOL PRN IV MAGNESIUM PROTOCOL 06/11/24 15:00 06/22/24 18:51 DC 06/19/24 06:32 25 MLS/HR Meropenem (Merrem 1gm) 1 gm Q12H IV 06/18/24 20:00 06/18/24 16:05 DC Meropenem (Merrem 1gm) 1 gm Q12H IV 06/19/24 14:30 06/22/24 18:51 DC 06/22/24 14:45 1 GM Meropenem (Merrem 500mg) 500 mg ONCE IV 06/18/24 16:00 06/18/24 16:01 DC Metronidazole/ Sodium Chloride 100 ml @ 100 mls/hr Q8H6 IVPB 06/09/24 14:00 06/19/24 13:59 DC 06/19/24 06:04 100 MLS/HR Midazolam HCl (Midazolam 100mg-0.9% NS 100ml) 100 ml PROTOCOL IV 06/09/24 15:30 06/12/24 10:33 DC 06/11/24 08:05 100 ML Midodrine (PROAMatine 5 MG TABLET) 10 mg TID PO 06/11/24 14:00 06/14/24 10:06 DC 06/14/24 07:47 10 MG Midodrine (PROAMatine 5 MG TABLET) 15 mg TID PO 06/14/24 14:00 06/22/24 18:51 DC 06/21/24 21:59 15 MG Multivitamins Therapeutic (Multivitamin Tablet) 1 tab DAILY PO 06/10/24 09:00 06/22/24 18:51 DC 06/22/24 09:13 1 TAB Norepinephrine Bitartrate (Norepineph 16 Mg/250ml NS Premix) HIGH ALERT Init... PROTOCOL IV 06/09/24 12:30 06/21/24 09:21 DC 06/13/24 19:21 16 MG Octreotide Acetate 1250 mcg/ Sodium Chloride 250 ml @ 0 mls/hr PROTOCOL IV 06/09/24 08:30 06/13/24 13:43 DC 06/11/24 13:17 5 MLS/HR Octreotide Acetate 500 mcg/ Sodium Chloride 100 ml @ 0 mls/hr PROTOCOL IV 06/09/24 04:30 06/09/24 08:13 DC 06/09/24 05:50 5 MLS/HR Ondansetron HCl (zoFRAN 4MG INJ) 4 mg Q4H PRN IV NAUSEA 06/09/24 18:00 07/09/24 17:59 Pantoprazole Sodium (PROTonix 40MG INJ) 40 mg BID IVP 06/11/24 21:00 06/22/24 18:51 DC 06/22/24 09:14 40 MG Pantoprazole Sodium 80 mg/ Sodium Chloride 100 ml @ 10 mls/hr Q10H IVP 06/09/24 04:00 06/11/24 13:24 DC 06/11/24 08:04 10 MLS/HR Pharmacy Profile Note (Pharmacy Communication) 1 each PROTOCOL PRN MISC ETOH Withdrawal Score changes 06/09/24 18:00 06/16/24 17:59 DC Phenylephrine HCl 10 mg/Sodium Chloride 250 ml @ 0 mls/hr PROTOCOL PRN IV PROTOCOL 06/09/24 07:00 06/22/24 18:51 DC 06/09/24 09:27 96 MLS/HR Potassium Chloride 20 meq/ Sodium Chloride 1,010 ml @ 0 mls/hr PROTOCOL IV 06/09/24 10:00 06/11/24 13:29 DC Potassium Chloride/Dextrose/ Sod Cl 1,000 ml @ 0 mls/hr AD IV 06/09/24 10:00 06/11/24 13:29 DC Potassium Chloride 100 ml @ 50 mls/hr AD PRN IV POTASSIUM PROTOCOL 06/09/24 07:00 06/09/24 08:34 DC Potassium Chloride 100 ml @ 50 mls/hr AD PRN IV POTASSIUM PROTOCOL 06/09/24 08:30 06/22/24 18:51 DC 06/19/24 06:31 50 MLS/HR Potassium Chloride 100 ml @ 100 mls/hr AD PRN IV POTASSIUM PROTOCOL 06/09/24 08:30 06/09/24 08:41 DC Potassium Chloride (K-Dur/Klor-Con 20meq) 20 meq AD PRN PO POTASSIUM PROTOCOL 06/09/24 08:30 06/22/24 18:51 DC Potassium Chloride (KCl 10% Elixir 20meq/15ml) 20 meq AD PRN PO POTASSIUM PROTOCOL 06/09/24 08:30 06/22/24 18:51 DC 06/17/24 08:17 20 MEQ Propofol (DIPRivan 1000MG/ 100ML) 1,000 mg PROTOCOL PRN IV SEDATION 06/14/24 17:30 06/21/24 09:21 DC Sodium Bicarbonate 150 meq/Dextrose 1,150 ml @ 150 mls/hr Q7H40M IVP 06/09/24 00:30 06/09/24 18:11 DC 06/09/24 01:18 150 MLS/HR Sodium Chloride 250 ml @ 0 mls/hr Q0M IV 06/19/24 05:00 06/21/24 09:21 DC 06/19/24 05:07 0 MLS/HR Sodium Chloride 500 ml @ 0 mls/hr Q0M IV 06/17/24 18:00 06/18/24 15:59 DC 06/17/24 18:26 500 MLS/HR Sodium Chloride 1,000 ml @ 75 mls/hr [id number] IV 06/17/24 18:00 06/18/24 15:59 DC 06/18/24 08:49 75 MLS/HR Sodium Chloride 1,000 ml @ 200 mls/hr PROTOCOL IV 06/09/24 10:00 06/11/24 13:29 DC Thiamine HCl (Vitamin B-1) 300 mg DAILY IV 06/09/24 18:00 06/22/24 18:51 DC 06/22/24 09:13 300 MG Trimethoprim/ Sulfamethoxazole (BactRIM DS) 1 tab BID PO 06/21/24 09:00 06/22/24 18:51 DC 06/22/24 09:13 1 TAB Vancomycin HCl 250 ml @ 125 mls/hr Q12H IV 06/09/24 22:00 06/10/24 21:50 DC 06/10/24 10:06 125 MLS/HR Vancomycin HCl 250 ml @ 125 mls/hr Q24H IV 06/11/24 22:00 06/12/24 21:39 DC 06/11/24 21:10 125 MLS/HR Vancomycin HCl 250 ml @ 125 mls/hr Q24H IV 06/13/24 22:00 06/18/24 15:59 DC 06/17/24 20:15 125 MLS/HR Vancomycin HCl (Vancomycin Protocol) 1 each AD IV 06/09/24 09:00 06/18/24 15:59 DC Vasopressin 20 units/Sodium Chloride 100 ml @ 0 mls/hr PROTOCOL IV 06/09/24 07:00 06/22/24 18:51 DC 06/09/24 08:20 9 MLS/HR Wound Care/ Dressing Products (Venelex Ointment) 1 APPL TID TP 06/14/24 21:00 07/14/24 20:59 06/23/24 13:53 1 GM Diagnostics / Radiology: [COPY/PASTE HERE IF NO REPORTS PLEASE DELETE SECTION] Assessment: Oropharyngeal dysphagia Feeding difficulties Gastric ulcer Acute blood loss anemia Cirrhosis Plan: Patient is not a candidate for PEG given known ascites- high risk for peritoni tis. can consider surgery for open g tube; however, also high risk. Consider palliative/hospice Continue GI prophylaxis Avoid NSAIDs Antireflux measures Monitor H&H and transfuse as needed Call with questions, concerns or change in clinical status Patient to follow-up at clinic post discharge Thank you for this consult LISA FRASER Jun 23, 2024 15:43
[2024-06-23] MEDS: morPHINE 2 MG SYG IVP PRN (18:02)
--- NOTE | 2024-06-23 20:00 | NUR ---
PT IN BED, AWAKENS WITH VERBAL STIMULATION, DENIES DISCOMFORT. TOTAL CARE WITH ADLS, TURNED AND POSITIONED FOR COMFORT. NO SOB OR LABORED RESPIRATIONS, NO ANXIETY OR DISTRESS. CALL LIGHT WITHIN REACH, BED ALARM ON
--- NOTE | 2024-06-23 20:58 | PN ---
INFECTIOUS DISEASE FOLLOWUP NOTE DATE OF SERVICE: 06/23/2024 SUBJECTIVE: The patient is seen. No fever, no chills. Awake and alert. No nausea or vomiting. No sore throat, no rhinorrhea. Bedbound debility. The patient has been accepted and will be discharged home with hospice. PHYSICAL EXAMINATION: VITAL SIGNS: Temperature 97.5. EYES: Has jaundice. No conjunctival hemorrhage. HENT: No oral thrush seen. Dry oral mucosa. NECK: Supple, no JVD or thyromegaly. LUNGS: Good air entry. No rales, no rhonchi. CARDIOVASCULAR: S1, S2 regular. No murmur heard. ABDOMEN: Full, soft, nontender. Bowel sound is present. CENTRAL NERVOUS SYSTEM: The patient is awake, alert, bedbound debility. SKIN: No rashes, no itchiness. LYMPHATIC: No peripheral lymphadenopathy. BACK: No deformity, no pressure ulcer. ASSESSMENT: A 53-year-old male with multiple problems which include: * Pneumonia. * Hypoxic respiratory failure. * Alcoholic liver cirrhosis. * Ascites. * Malnutrition. * Thrombocytopenia. PLAN: * Continue lactulose. * Continue antiemetic. * Continue nutritional support. * Continue GI prophylaxis. * The patient will be discharged home with hospice. TID: [id number] RECEIPT: [id number]
[2024-06-24 03:52] LABS: HEMATOCRIT 28.9 % (42-54); MEAN CORPUSCULAR HEMOGLOBIN 34.4 pg (27.0-33.0); MEAN CORPUSCULAR HGB CONC 30.8 g/dL (32.0-36.0); MEAN CORPUSCULAR VOLUME 111.6 fL (79-99); PLATELET COUNT (AUTO) 209 K/uL (130-400); RED BLOOD CELL COUNT(AUTO) 2.59 MIL/uL (4.50-6.20); RED CELL DISTRIBUTION WIDTH 16.3 % (11.0-15.5); WHITE BLOOD COUNT (AUTO) 15.3 K/uL (4.8-10.8)
[2024-06-24 03:56] LABS: INR 1.4 (0.85-1.15); PROTHROMBIN TIME 15.2 SEC (9.6-11.6)
[2024-06-24 03:57] LABS: PARTIAL THROMBOPLASTIN TIME 33.9 SEC (26.3-35.5)
[2024-06-24 04:10] LABS: ALBUMIN 1.7 g/dL (3.5-5.0); BILIRUBIN,TOTAL 3.2 mg/dL (0.2-1.0); CREATININE 1.3 mg/dL (0.5-1.3); POTASSIUM 4.2 mmol/L (3.5-5.1); TOTAL PROTEIN, SERUM 5.3 g/dL (6.0-8.3)
[2024-06-24 06:27] VITALS: PULSE 114; RESP 20
[2024-06-24 06:28] VITALS: PULSE 114; RESP 20; O2SAT 95
[2024-06-24 07:10] VITALS: O2SAT 94
--- NOTE | 2024-06-24 08:18 | PN ---
Acute sepsis with septic shock Bilateral lower lobe pneumonia on admission secondary to aspiration Pneumonia with positive gram negative rods Acute hepatic encephalopathy secondary to hyperammonemia Acute decompensated alcoholic liver cirrhosis, MELD score 19 Ascites secondary to above Elevated troponin Acute on chronic diastolic heart failure exacerbation Initial EF was 40%, subsequent EF 55% during this stay Acute metabolic acidosis Thrombocytopenia Anemia of chronic disease Acute GI bleed secondary to gastric ulcer Severe protein calorie malnutrition [place] use disorder Alcohol use disorder Patient is lethargic, offers no history. No JVD, no rales, nonlabored respiration, normal S1 and S2, no murmur, no edema. Patient had elevation of troponin early in the stay while experiencing multisystem illness including alcohol withdrawal, liver complications, and sepsis. Echocardiogram demonstrate no wall motion abnormalities and ejection fraction is now normal. Patient was reportedly [place] in another state and supposedly had cardiac issues there, but no records have been retrievable. Records were ordered but have not been received. No further cardiac evaluation recommended at this time. I will sign off. Vitals/Labs Vital Signs Date Time Temp Pulse Resp B/P (MAP) Pulse Ox O2 Delivery O2 Flow Rate FiO2 06/24/24 06:28 114 20 N/A Room Air 21 06/23/24 20:08 99.1 130/92 95 06/23/24 19:40 0 Laboratory Tests 06/24/24 03:00 Medications Current Medications Furosemide 40 mg ONCE ONCE IV Last administered on 06/09/24at 00:55; Start 06/09/24 at 00:30; Stop 06/09/24 at 00:31; Status DC Magnesium Sulfate 50 ml @ As Directed STK-MED ONCE IV; Start 06/09/24 at 00:24; Stop 06/09/24 at 00:29; Status DC Diazepam 5 mg ONCE ONCE IVP Last administered on 06/09/24at 00:58; Start 06/09/24 at 00:30; Stop 06/09/24 at 00:36; Status DC Sodium Bicarbonate 150 meq/Dextrose 1,150 ml @ 150 mls/hr [id number] IVP Last administered on 06/09/24at 01:18; Start 06/09/24 at 00:30; Stop 06/09/24 at 18:11; Status DC Sodium Bicarbonate 50 meq ONCE ONCE IV Last administered on 06/09/24at 00:56; Start 06/09/24 at 00:30; Stop 06/09/24 at 00:36; Status DC Sodium Bicarbonate 0 ml @ As Directed STK-MED ONCE .ROUTE; Start 06/09/24 at 00:35; Stop 06/09/24 at 00:36; Status DC Diazepam 10 mg STK-MED ONCE .ROUTE; Start 06/09/24 at 00:36; Stop 06/09/24 at 00:37; Status DC Magnesium Sulfate 50 ml @ 0 mls/hr PROTOCOL PRN IV Last administered on 06/09/24at 01:03; Start 06/09/24 at 01:00; Stop 06/09/24 at 06:50; Status DC Heparin Sodium/ Dextrose 250 ml @ 0 mls/hr PROTOCOL IV Last administered on 06/09/24at 03:31; Start 06/09/24 at 03:30; Stop 06/09/24 at 09:45; Status DC Heparin Sodium (Porcine) 5,000 unit ONCE ONCE IV Last administered on 06/09/24at 03:27; Start 06/09/24 at 03:30; Stop 06/09/24 at 03:31; Status DC Pantoprazole Sodium 80 mg/ Sodium Chloride 100 ml @ 10 mls/hr Q10H IVP Last administered on 06/11/24at 08:04; Start 06/09/24 at 04:00; Stop 06/11/24 at 13:24; Status DC Pantoprazole Sodium 40 mg ONCE ONCE IVP Last administered on 06/09/24at 04:26; Start 06/09/24 at 04:00; Stop 06/09/24 at 04:01; Status DC Octreotide Acetate 500 mcg/ Sodium Chloride 100 ml @ 0 mls/hr PROTOCOL IV Last administered on 06/09/24at 05:50; Start 06/09/24 at 04:30; Stop 06/09/24 at 08:13; Status DC Octreotide Acetate 50 mcg ONCE ONCE IV Last administered on 06/09/24at 04:26; Start 06/09/24 at 04:30; Stop 06/09/24 at 04:31; Status DC Sodium Chloride 1,000 ml @ 500 mls/hr Q2H ONCE IV Last administered on 06/09/24at 05:03; Start 06/09/24 at 05:00; Stop 06/09/24 at 06:59; Status DC Sodium Chloride 1,000 ml @ As Directed STK-MED ONCE IV; Start 06/09/24 at 05:00; Stop 06/09/24 at 05:00; Status DC Fentanyl Citrate 100 ml @ As Directed STK-MED ONCE IV; Start 06/09/24 at 06:05; Stop 06/09/24 at 06:05; Status DC Ketamine HCl 50 mg STK-MED ONCE .ROUTE; Start 06/09/24 at 06:06; Stop 06/09/24 at 06:06; Status DC Midazolam HCl 100 ml ONCE ONCE IV Last administered on 06/09/24at 08:17; Start 06/09/24 at 06:30; Stop 06/09/24 at 06:59; Status DC Fentanyl Citrate 100 ml @ 2.5 mls/hr PROTOCOL IV Last administered on 06/11/24at 21:06; Start 06/09/24 at 06:30; Stop 06/12/24 at 13:28; Status DC Ketamine HCl 100 mg ONCE ONCE IM; Start 06/09/24 at 06:30; Stop 06/09/24 at 06:31; Status DC Pharmacy Profile Note 1 each ONCE ONCE MISC; Start 06/09/24 at 06:30; Stop 06/09/24 at 07:00; Status DC Rocuronium [place] 50 mg STK-MED ONCE .ROUTE; Start 06/09/24 at 06:06; Stop 06/09/24 at 06:06; Status DC Norepinephrine 250 ml @ As Directed STK-MED ONCE IV; Start 06/09/24 at 06:16; Stop 06/09/24 at 06:16; Status DC Levofloxacin/ Dextrose 750 mg Q24H IV; Start 06/09/24 at 06:30; Stop 06/09/24 at 08:29; Status DC Potassium Chloride 100 ml @ 50 mls/hr AD PRN IV; Start 06/09/24 at 07:00; Stop 06/09/24 at 08:34; Status DC Magnesium Sulfate 50 ml @ 0 mls/hr PROTOCOL PRN IV; Start 06/09/24 at 07:00; Stop 06/09/24 at 08:35; Status DC Phenylephrine HCl 10 mg/Sodium Chloride 250 ml @ 0 mls/hr PROTOCOL PRN IV Last administered on 06/09/24at 09:27; Start 06/09/24 at 07:00; Stop 06/22/24 at 18:51; Status DC Vasopressin 20 units STK-MED ONCE .ROUTE; Start 06/09/24 at 06:42; Stop 06/09/24 at 06:42; Status DC Vasopressin 20 units/Sodium Chloride 100 ml @ 0 mls/hr PROTOCOL IV Last administered on 06/09/24at 08:20; Start 06/09/24 at 07:00; Stop 06/22/24 at 18:51; Status DC Furosemide 20 mg Q12H IV; Start 06/09/24 at 12:00; Stop 06/09/24 at 11:26; Status DC Octreotide Acetate 1250 mcg/ Sodium Chloride 250 ml @ 0 mls/hr PROTOCOL IV Last administered on 06/11/24at 13:17; Start 06/09/24 at 08:30; Stop 06/13/24 at 13:43; Status DC Potassium Chloride 100 ml @ 100 mls/hr AD PRN IV; Start 06/09/24 at 08:30; Stop 06/09/24 at 08:41; Status DC Potassium Chloride 20 meq AD PRN PO Last administered on 06/17/24at 08:17; Start 06/09/24 at 08:30; Stop 06/22/24 at 18:51; Status DC Potassium Chloride 20 meq AD PRN PO; Start 06/09/24 at 08:30; Stop 06/22/24 at 18:51; Status DC Potassium Chloride 100 ml @ 50 mls/hr AD PRN IV Last administered on 06/19/24at 06:31; Start 06/09/24 at 08:30; Stop 06/22/24 at 18:51; Status DC Magnesium Sulfate 50 ml @ 0 mls/hr PROTOCOL PRN IV; Start 06/09/24 at 08:30; Stop 06/09/24 at 09:46; Status DC Vancomycin HCl 1 each AD IV; Start 06/09/24 at 09:00; Stop 06/18/24 at 15:59; Status DC Cefepime HCl 2 gm Q8H IVPB Last administered on 06/10/24at 16:44; Start 06/09/24 at 09:00; Stop 06/10/24 at 19:49; Status DC Metronidazole/ Sodium Chloride 100 ml @ 100 mls/hr Q8H6 IVPB Last administered on 06/19/24at 06:04; Start 06/09/24 at 14:00; Stop 06/19/24 at 13:59; Status DC Chlorhexidine Gluconate 15 ml Q8H MM Last administered on 06/21/24at 01:29; Start 06/09/24 at 09:00; Stop 06/21/24 at 09:21; Status DC Artificial Tears 1 DROP OR AD Q8H OU Last administered on 06/23/24at 16:36; Start 06/09/24 at 09:00; Stop 07/09/24 at 08:59 Vancomycin HCl 250 ml @ 125 mls/hr ONCE ONCE IV Last administered on 06/09/24at 11:19; Start 06/09/24 at 09:00; Stop 06/09/24 at 10:59; Status DC Vancomycin HCl 250 ml @ 125 mls/hr Q12H IV Last administered on 06/10/24at 10:06; Start 06/09/24 at 22:00; Stop 06/10/24 at 21:50; Status DC Sodium Bicarbonate 50 ml @ As Directed STK-MED ONCE .ROUTE; Start 06/09/24 at 09:40; Stop 06/09/24 at 09:40; Status DC Sodium Bicarbonate 100 meq ONCE ONCE IV; Start 06/09/24 at 10:00; Stop 06/09/24 at 09:45; Status DC Potassium Chloride 20 meq ONCE ONCE PO; Start 06/09/24 at 10:00; Stop 06/09/24 at 10:01; Status DC Sodium Chloride 1,000 ml @ 200 mls/hr PROTOCOL IV; Start 06/09/24 at 10:00; Stop 06/11/24 at 13:29; Status DC Potassium Chloride/Dextrose/ Sod Cl 1,000 ml @ 0 mls/hr AD IV; Start 06/09/24 at 10:00; Stop 06/11/24 at 13:29; Status DC Potassium Chloride 20 meq/ Sodium Chloride 1,010 ml @ 0 mls/hr PROTOCOL IV; Start 06/09/24 at 10:00; Stop 06/11/24 at 13:29; Status DC Magnesium Sulfate 50 ml @ 0 mls/hr PROTOCOL IV Last administered on 06/11/24at 07:13; Start 06/09/24 at 10:00; Stop 06/11/24 at 13:29; Status DC Insulin Human Regular 100 unit/ Sodium Chloride 101 ml @ 0 mls/hr PROTOCOL IV Last administered on 06/09/24at 11:41; Start 06/09/24 at 10:00; Stop 06/11/24 at 13:29; Status DC Dextrose/Sodium Chloride 1,000 ml @ 0 mls/hr AD IV; Start 06/09/24 at 10:00; Stop 06/11/24 at 13:29; Status DC Sodium Bicarbonate 50 meq ONCE ONCE IV Last administered on 06/09/24at 11:20; Start 06/09/24 at 10:00; Stop 06/09/24 at 10:01; Status DC Furosemide 20 mg Q6H6 IV Last administered on 06/12/24at 06:46; Start 06/09/24 at 12:00; Stop 06/12/24 at 07:38; Status DC Norepinephrine 250 ml @ As Directed STK-MED ONCE IV; Start 06/09/24 at 12:03; Stop 06/09/24 at 12:04; Status DC Norepinephrine Bitartrate HIGH ALERT Init... PROTOCOL IV Last administered on 06/13/24at 19:21; Start 06/09/24 at 12:30; Stop 06/21/24 at 09:21; Status DC Pantoprazole Sodium 40 mg STK-MED ONCE .ROUTE; Start 06/09/24 at 12:19; Stop 06/09/24 at 12:19; Status DC Iohexol 75 ml STK-MED ONCE IV; Start 06/09/24 at 13:45; Stop 06/09/24 at 13:49; Status DC Midazolam HCl 100 ml PROTOCOL IV Last administered on 06/11/24at 08:05; Start 06/09/24 at 15:30; Stop 06/12/24 at 10:33; Status DC Lorazepam 2 mg Q4H PRN IVP; Start 06/09/24 at 18:00; Stop 06/16/24 at 17:59; Status DC Lorazepam 4 mg Q2H PRN IVP; Start 06/09/24 at 18:00; Stop 06/16/24 at 17:59; Status DC Ondansetron HCl 4 mg Q4H PRN IV; Start 06/09/24 at 18:00; Stop 07/09/24 at 17:59 Acetaminophen 500 mg Q6H PRN PO Last administered on 06/14/24at 17:35; Start 06/09/24 at 18:00; Stop 06/22/24 at 18:51; Status DC Multivitamins Therapeutic 1 tab DAILY PO Last administered on 06/22/24at 09:13; Start 06/10/24 at 09:00; Stop 06/22/24 at 18:51; Status DC Pharmacy Profile Note 1 each PROTOCOL PRN MISC; Start 06/09/24 at 18:00; Stop 06/16/24 at 17:59; Status DC Thiamine HCl 300 mg DAILY IV Last administered on 06/22/24at 09:13; Start 06/09/24 at 18:00; Stop 06/22/24 at 18:51; Status DC Folic Acid 1 mg DAILY IV Last administered on 06/22/24at 09:14; Start 06/09/24 at 18:00; Stop 06/22/24 at 18:51; Status DC Lactated Ringer's 500 ml BOLUS ONCE IV; Start 06/10/24 at 03:30; Stop 06/10/24 at 03:50; Status DC Lactulose 200 gm ONCE ONCE MI Last administered on 06/10/24at 11:11; Start 06/10/24 at 10:00; Stop 06/10/24 at 10:01; Status DC Cefepime HCl 2 gm Q12H IVPB Last administered on 06/18/24at 05:05; Start 06/11/24 at 05:00; Stop 06/18/24 at 15:59; Status DC Vancomycin HCl 250 ml @ 125 mls/hr Q24H IV Last administered on 06/11/24at 21:10; Start 06/11/24 at 22:00; Stop 06/12/24 at 21:39; Status DC Insulin Human Regular INSULIN SLIDING SCAL... Q6H6 SQ Last administered on 06/13/24at 06:45; Start 06/11/24 at 12:00; Stop 06/13/24 at 11:22; Status DC Midodrine 10 mg TID PO Last administered on 06/14/24at 07:47; Start 06/11/24 at 14:00; Stop 06/14/24 at 10:06; Status DC Lactulose 20 gm DAILY PO Last administered on 06/20/24at 08:16; Start 06/12/24 at 09:00; Stop 06/21/24 at 09:25; Status DC Pantoprazole Sodium 40 mg BID IVP Last administered on 06/22/24at 09:14; Start 06/11/24 at 21:00; Stop 06/22/24 at 18:51; Status DC Magnesium Sulfate 50 ml @ 0 mls/hr PROTOCOL PRN IV Last administered on 06/19/24at 06:32; Start 06/11/24 at 15:00; Stop 06/22/24 at 18:51; Status DC Dexmedetomidine/ Sodium Chloride 400 mcg PROTOCOL IV Last administered on 06/20/24at 23:18; Start 06/11/24 at 20:30; Stop 06/21/24 at 09:21; Status DC Furosemide 40 mg Q12H IV Last administered on 06/12/24at 08:16; Start 06/12/24 at 08:00; Stop 06/12/24 at 14:58; Status DC Albumin Human 100 ml @ 50 mls/hr AD IV Last administered on 06/12/24at 13:30; Start 06/12/24 at 11:00; Stop 06/14/24 at 10:59; Status DC Furosemide 20 mg DAILY IV Last administered on 06/13/24at 07:59; Start 06/13/24 at 09:00; Stop 06/13/24 at 09:20; Status DC Vancomycin HCl 250 ml @ 125 mls/hr Q24H IV Last administered on 06/17/24at 20:15; Start 06/13/24 at 22:00; Stop 06/18/24 at 15:59; Status DC Lactated Ringer's 1,000 ml @ 50 mls/hr Q20H IV Last administered on 06/13/24at 11:18; Start 06/13/24 at 09:30; Stop 06/13/24 at 14:44; Status DC Insulin Human Regular INSULIN SLIDING SCAL... Q6H6 SQ Last administered on 06/17/24at 00:51; Start 06/13/24 at 12:00; Stop 06/22/24 at 18:51; Status DC Fentanyl Citrate 100 mcg STK-MED ONCE .ROUTE; Start 06/13/24 at 12:57; Stop 06/13/24 at 12:59; Status DC Midazolam HCl 2 mg STK-MED ONCE .ROUTE; Start 06/13/24 at 12:57; Stop 06/13/24 at 12:59; Status DC Midazolam HCl 2 mg ONCE ONCE IVP Last administered on 06/13/24at 15:01; Start 06/13/24 at 14:00; Stop 06/13/24 at 14:01; Status DC Fentanyl Citrate 100 mcg ONCE ONCE IVP Last administered on 06/13/24at 15:01; Start 06/13/24 at 14:00; Stop 06/13/24 at 14:01; Status DC Dexmedetomidine/ Sodium Chloride 400 mcg STK-MED ONCE IV; Start 06/13/24 at 22:43; Stop 06/13/24 at 22:43; Status DC Midodrine 15 mg TID PO Last administered on 06/21/24at 21:59; Start 06/14/24 at 14:00; Stop 06/22/24 at 18:51; Status DC Ipratropium [place] 0.5 MG [id number] IH Last administered on 06/19/24at 06:21; Start 06/14/24 at 14:00; Stop 06/19/24 at 09:03; Status DC Midodrine 5 mg ONCE ONCE PO Last administered on 06/14/24at 10:42; Start 06/14/24 at 11:00; Stop 06/14/24 at 11:01; Status DC Wound Care/ Dressing Products 1 APPL TID TP Last administered on 06/23/24at 13:53; Start 06/14/24 at 21:00; Stop 07/14/24 at 20:59 Propofol 100 ml @ As Directed STK-MED ONCE IV Last administered on 06/14/24at 17:37; Start 06/14/24 at 17:10; Stop 06/14/24 at 17:10; Status DC Propofol 1,000 mg PROTOCOL PRN IV; Start 06/14/24 at 17:30; Stop 06/21/24 at 09:21; Status DC Lactated Ringer's 500 ml BOLUS IV Last administered on 06/15/24at 10:04; Start 06/15/24 at 10:00; Stop 06/15/24 at 12:31; Status DC Lactated Ringer's 1,000 ml @ 75 mls/hr [id number] IV Last administered on 06/17/24at 03:57; Start 06/15/24 at 11:00; Stop 06/17/24 at 09:36; Status DC Sodium Chloride 4 ml STK-MED ONCE IH Last administered on 06/17/24at 02:49; Start 06/16/24 at 22:49; Stop 06/16/24 at 22:49; Status DC Albumin Human 250 ml @ 0 mls/hr AD IV Last administered on 06/17/24at 10:54; Start 06/17/24 at 11:00; Stop 06/19/24 at 10:59; Status DC Diatrizoate Meglum/ Diatrizoate Sod 30 ml STK-MED ONCE .ROUTE; Start 06/17/24 at 16:22; Stop 06/17/24 at 16:22; Status DC Sodium Chloride 1,000 ml @ 75 mls/hr [id number] IV Last administered on 06/18/24at 08:49; Start 06/17/24 at 18:00; Stop 06/18/24 at 15:59; Status DC Sodium Chloride 500 ml @ 0 mls/hr Q0M IV Last administered on 06/17/24at 18:26; Start 06/17/24 at 18:00; Stop 06/18/24 at 15:59; Status DC Morphine Sulfate 2 mg ONCE ONCE IVP; Start 06/17/24 at 21:30; Stop 06/17/24 at 21:31; Status DC Morphine Sulfate 2 mg STK-MED ONCE .ROUTE Last administered on 06/17/24at 21:22; Start 06/17/24 at 21:21; Stop 06/17/24 at 21:21; Status DC Lorazepam 1 mg ONCE ONCE IVP; Start 06/18/24 at 03:30; Stop 06/18/24 at 03:36; Status DC Lorazepam 2 mg STK-MED ONCE .ROUTE Last administered on 06/18/24at 03:30; Start 06/18/24 at 03:23; Stop 06/18/24 at 03:29; Status DC Meropenem 1 gm Q12H IV; Start 06/18/24 at 20:00; Stop 06/18/24 at 16:05; Status DC Meropenem 500 mg ONCE IV; Start 06/18/24 at 16:00; Stop 06/18/24 at 16:01; Status DC Diazepam 10 mg Q12H NG Last administered on 06/20/24at 04:31; Start 06/18/24 at 16:00; Stop 06/20/24 at 12:51; Status DC Cefepime HCl 2 gm Q12H IVPB; Start 06/18/24 at 16:30; Stop 06/18/24 at 16:06; Status DC Cefepime HCl 2 gm Q12H IVPB Last administered on 06/19/24at 02:32; Start 06/18/24 at 17:00; Stop 06/19/24 at 14:11; Status DC Furosemide 20 mg DAILY IV Last administered on 06/20/24at 08:17; Start 06/19/24 at 09:00; Stop 06/20/24 at 14:00; Status DC Furosemide 20 mg ONCE ONCE IV Last administered on 06/18/24at 16:33; Start 06/18/24 at 16:30; Stop 06/18/24 at 16:31; Status DC Sodium Chloride 250 ml @ 0 mls/hr Q0M IV Last administered on 06/19/24at 05:07; Start 06/19/24 at 05:00; Stop 06/21/24 at 09:21; Status DC Acetaminophen 650 mg ONCE ONCE PO Last administered on 06/19/24at 05:06; Start 06/19/24 at 05:00; Stop 06/19/24 at 05:01; Status DC Ipratropium [place] 0.5 MG [id number] IH Last administered on 06/24/24at 06:42; Start 06/19/24 at 12:00; Stop 07/14/24 at 13:59 Meropenem 1 gm Q12H IV Last administered on 06/22/24at 14:45; Start 06/19/24 at 14:30; Stop 06/22/24 at 18:51; Status DC Diazepam 15 mg Q12H NG Last administered on 06/22/24at 16:25; Start 06/20/24 at 16:00; Stop 06/22/24 at 18:51; Status DC Trimethoprim/ Sulfamethoxazole 1 tab BID PO Last administered on 06/22/24at 09:13; Start 2/11/25 at 09:00; Stop 06/22/24 at 18:51; Status DC Lactulose 20 gm BID PO Last administered on 06/22/24at 09:13; Start 06/21/24 at 21:00; Stop 06/22/24 at 18:51; Status DC Bisacodyl 10 mg DAILY RC Last administered on 06/22/24at 09:14; Start 06/22/24 at 09:00; Stop 06/22/24 at 18:51; Status DC Dextrose 1,000 ml @ 50 mls/hr Q20H IV Last administered on 06/21/24at 10:08; Start 06/21/24 at 09:30; Stop 06/22/24 at 18:51; Status DC Lorazepam 0.5 mg Q8H PRN IVP; Start 06/22/24 at 19:30; Stop 06/29/24 at 19:29 Morphine Sulfate 2 mg Q4HPRN PRN IVP Last administered on 06/24/24at 06:23; Start 06/23/24 at 17:30; Stop 06/30/24 at 17:29 CHIRAG SÁNCHEZ MD Jun 24, 2024 08:17
--- NOTE | 2024-06-24 08:19 | PN ---
GASTROENTEROLOGY PROGRESS NOTE Date of Visit: Jun 24, 2024 Time of Visit: 08:18 Events / Notes: No acute events overnight. Patient had EGD with gastric ulcer. Review of Systems: CONSTITUTIONAL: No malaise or change in sensation of wellbeing. ENMT: No rhinorrhea, otorrhea, sinus pain, ear ache. CARDIOVASCULAR: No angina, palpitations, orthopnea or paroxysmal dyspnea. RESPIRATORY: No SOB. GASTROINTESTINAL: No abdominal pain, nausea, vomiting, diarrhea, hematemesis, melena or change in the patient's habitual bowel movements consistency/number. GENITOURINARY: No dysuria, hematuria or change in bladder continence. MUSCULOSKELETAL: No new muscle pain or decrease in muscular strength. No new joint swelling, redness or tenderness. SKIN: No new rash. Physical Exam: GEN: Awake, alert, oriented in person, time and place, and in no acute distress. HEENT: No sinus tenderness. Tympanic membranes were not examined. No rhinorrhea. Oral pharyngeal mucosa is pink, moist and within normal limits. Neck is supple with no cervical lymphadenopathy, thyromegaly or JVD. CHEST: Inspection, palpation and percussion of the chest were unremarkable. Lung auscultation revealed normal breath sounds bilaterally. CARDIAC: PMI is within normal limits. Heart sounds are regular. Normal S1, S2. No gallop or murmur. ABD: Soft, non-tender and not distended. No peritoneal signs on palpation. No organomegaly. Normal bowel sounds. EXT: No cyanosis or clubbing. No edema. SKIN: Intact. No rashes. JOINTS: No evidence of synovitis or acute arthritis. NEURO: Alert and oriented to name, place and person. Cranial nerve examination is unremarkable. No focal motor deficits. Normal speech. Gait is normal. Strength is normal. Vital Signs (last 8hr) Date Time Temp Pulse Resp B/P (MAP) Pulse Ox O2 Delivery O2 Flow Rate FiO2 06/24/24 06:28 114 20 N/A Room Air 21 06/24/24 06:27 114 20 Laboratory: [ ] Laboratory: Test 06/24/24 03:00 06/22/24 15:41 06/22/24 12:00 Range/Units White Blood Count 15.3 H 4.8-10.8 K/uL Red Blood Count 2.59 L 4.50-6.20 MIL/uL Hemoglobin 8.9 L 14.0-18.0 g/dL Hematocrit 28.9 L 42-54 % Mean Corpuscular Volume 111.6 H 79-99 fL Mean Corpuscular Hemoglobin 34.4 H 27.0-33.0 pg Mean Corpuscular Hemoglobin Concent 30.8 L 32.0-36.0 g/dL Red Cell Distribution Width 16.3 H 11.0-15.5 % Platelet Count 209 # 130-400 K/uL Mean Platelet Volume 12.6 H 7.5-10.5 fL Nucleated Red Blood Cells 0.0 0.0-0.19 % Red Blood Cell Morphology See comments Prothrombin Time 15.2 H 9.6-11.6 SEC Prothromb Time International Ratio 1.40 H 0.85-1.15 Activated Partial Thromboplast Time 33.9 26.3-35.5 SEC Sodium Level 155 H 136-145 mmol/L Potassium Level 4.2 3.5-5.1 mmol/L Chloride Level 124 *H 101-111 mmol/L Carbon Dioxide Level 21 21-32 mmol/L Blood Urea Nitrogen 36 H 7-18 mg/dL Creatinine 1.3 0.5-1.3 mg/dL Glomerular Filtration Rate Calc 65 >90 mL/min Random Glucose 101 70-105 mg/dL Total Calcium 8.2 L 8.5-10.1 mg/dL Total Bilirubin 3.2 H 0.2-1.0 mg/dL Aspartate Amino Transf (AST/SGOT) 71 H 10-37 U/L Alanine Aminotransferase (ALT/SGPT) 37 12-78 U/L Alkaline Phosphatase 140 H 50-136 U/L Total Protein 5.3 L 6.0-8.3 g/dL Albumin 1.7 L 3.5-5.0 g/dL Whole Blood Glucose 135 H 70-110 MG/DL Body Fluid Source ASCITES Body Fluid Volume 3300 mL Body Fluid Color YELLOW LT YELLOW Body Fluid Supernatant Appearance CLEAR CLEAR Body Fluid WBC 18 /cu. mm. Body Fluid RBC 376 /cu. mm. Body Fluid Neutrophils % Current Medications Medications (Trade) Dose Ordered Sig/Quan Route PRN Reason Start Time Stop Time Status Last Admin Dose Admin Acetaminophen (TYLenol 500MG TAB) 500 mg Q6H PRN PO TEMP < 101.1 AND/OR HEADACHE 06/09/24 18:00 06/22/24 18:51 DC 06/14/24 17:35 500 MG Albumin Human 100 ml @ 50 mls/hr AD IV 06/12/24 11:00 06/14/24 10:59 DC 06/12/24 13:30 50 MLS/HR Albumin Human 250 ml @ 0 mls/hr AD IV 06/17/24 11:00 06/19/24 10:59 DC 06/17/24 10:54 250 MLS/HR Artificial Tears (Artificial Tears) 1 DROP OR AD Q8H OU 06/09/24 09:00 07/09/24 08:59 06/23/24 16:36 1 DROP Bisacodyl (DulcoLAX) 10 mg DAILY RC 06/22/24 09:00 06/22/24 18:51 DC 06/22/24 09:14 10 MG Cefepime HCl (MAXipime 2 gm vial) 2 gm Q12H IVPB 06/11/24 05:00 06/18/24 15:59 DC 06/18/24 05:05 2 GM Cefepime HCl (MAXipime 2 gm vial) 2 gm Q12H IVPB 06/18/24 16:30 06/18/24 16:06 DC Cefepime HCl (MAXipime 2 gm vial) 2 gm Q12H IVPB 06/18/24 17:00 06/19/24 14:11 DC 06/19/24 02:32 2 GM Cefepime HCl (MAXipime 2 gm vial) 2 gm Q8H IVPB 06/09/24 09:00 06/10/24 19:49 DC 06/10/24 16:44 2 GM Chlorhexidine Gluconate (Peridex) 15 ml Q8H MM 06/09/24 09:00 06/21/24 09:21 DC 06/21/24 01:29 15 ML Dexmedetomidine/ Sodium Chloride (PRECEdex 400MCG/ 100ML-NS) 400 mcg PROTOCOL IV 06/11/24 20:30 06/21/24 09:21 DC 06/20/24 23:18 400 MCG Dextrose 1,000 ml @ 50 mls/hr Q20H IV 06/21/24 09:30 06/22/24 18:51 DC 06/21/24 10:08 50 MLS/HR Dextrose/Sodium Chloride 1,000 ml @ 0 mls/hr AD IV 06/09/24 10:00 06/11/24 13:29 DC Diazepam (VALium 5 mg TAB) 10 mg Q12H NG 06/18/24 16:00 06/20/24 12:51 DC 06/20/24 04:31 10 MG Diazepam (VALium 5 mg TAB) 15 mg Q12H NG 06/20/24 16:00 06/22/24 18:51 DC 06/22/24 16:25 15 MG Fentanyl Citrate 100 ml @ 2.5 mls/hr PROTOCOL IV 06/09/24 06:30 06/12/24 13:28 DC 06/11/24 21:06 2.5 MLS/HR Folic Acid (FolVITE 5 MG/ML VIAL) 1 mg DAILY IV 06/09/24 18:00 06/22/24 18:51 DC 06/22/24 09:14 1 MG Furosemide (LASix 20MG VIAL) 20 mg DAILY IV 06/13/24 09:00 06/13/24 09:20 DC 06/13/24 07:59 20 MG Furosemide (LASix 20MG VIAL) 20 mg DAILY IV 06/19/24 09:00 06/20/24 14:00 DC 06/20/24 08:17 20 MG Furosemide (LASix 20MG VIAL) 20 mg Q12H IV 06/09/24 12:00 06/09/24 11:26 DC Furosemide (LASix 20MG VIAL) 20 mg Q6H6 IV 06/09/24 12:00 06/12/24 07:38 DC 06/12/24 06:46 20 MG Furosemide (LASix 20MG VIAL) 40 mg Q12H IV 06/12/24 08:00 06/12/24 14:58 DC 06/12/24 08:16 40 MG Heparin Sodium/ Dextrose 250 ml @ 0 mls/hr PROTOCOL IV 06/09/24 03:30 06/09/24 09:45 DC 06/09/24 03:31 10.78 MLS/HR Insulin Human Regular (humuLIN R 100 UNIT/ML 3ML) INSULIN SLIDING SCAL... Q6H6 SQ 06/11/24 12:00 06/13/24 11:22 DC 06/13/24 06:45 6 UNIT Insulin Human Regular (humuLIN R 100 UNIT/ML 3ML) INSULIN SLIDING SCAL... Q6H6 SQ 06/13/24 12:00 06/22/24 18:51 DC 06/17/24 00:51 6 UNIT Insulin Human Regular 100 unit/ Sodium Chloride 101 ml @ 0 mls/hr PROTOCOL IV 06/09/24 10:00 06/11/24 13:29 DC 06/09/24 11:41 1 MLS/HR Ipratropium [place] (AtrovENT UD) 0.5 MG [id number] IH 06/14/24 14:00 06/19/24 09:03 DC 06/19/24 06:21 0.5 MG Ipratropium [place] (AtrovENT UD) 0.5 MG [id number] IH 06/19/24 12:00 07/14/24 13:59 06/24/24 06:42 0.5 MG Lactated Ringer's 1,000 ml @ 50 mls/hr Q20H IV 06/13/24 09:30 06/13/24 14:44 DC 06/13/24 11:18 50 MLS/HR Lactated Ringer's 1,000 ml @ 75 mls/hr [id number] IV 06/15/24 11:00 06/17/24 09:36 DC 06/17/24 03:57 75 MLS/HR Lactated Ringer's (Lactated Ringers 1000ml) 500 ml BOLUS IV 06/15/24 10:00 06/15/24 12:31 DC 06/15/24 10:04 500 ML Lactulose (Constulose 20gm/ 30ml Udcup) 20 gm BID PO 06/21/24 21:00 06/22/24 18:51 DC 06/22/24 09:13 20 GM Lactulose (Constulose 20gm/ 30ml Udcup) 20 gm DAILY PO 06/12/24 09:00 06/21/24 09:25 DC 06/20/24 08:16 20 GM Levofloxacin/ Dextrose (LEvaquIN 750 MG/ D5W 150 ML) 750 mg Q24H IV 06/09/24 06:30 06/09/24 08:29 DC Lorazepam (AtiVAN) 0.5 mg Q8H PRN IVP ANXIETY/AGITATION 06/22/24 19:30 06/29/24 19:29 Lorazepam (AtiVAN) 2 mg Q4H PRN IVP ALCOHOL WITHDRAWAL PROTOCOL 06/09/24 18:00 06/16/24 17:59 DC Lorazepam (AtiVAN) 4 mg Q2H PRN IVP ALCOHOL WITHDRAWAL PROTOCOL 06/09/24 18:00 06/16/24 17:59 DC Magnesium Sulfate 50 ml @ 0 mls/hr PROTOCOL IV 06/09/24 10:00 06/11/24 13:29 DC 06/11/24 07:13 25 MLS/HR Magnesium Sulfate 50 ml @ 0 mls/hr PROTOCOL PRN IV OTHER [SEE ORDER COMMENTS] 06/09/24 01:00 06/09/24 06:50 DC 06/09/24 01:03 25 MLS/HR Magnesium Sulfate 50 ml @ 0 mls/hr PROTOCOL PRN IV OTHER [SEE ORDER COMMENTS] 06/09/24 07:00 06/09/24 08:35 DC Magnesium Sulfate 50 ml @ 0 mls/hr PROTOCOL PRN IV low magnesium 06/09/24 08:30 06/09/24 09:46 DC Magnesium Sulfate 50 ml @ 0 mls/hr PROTOCOL PRN IV MAGNESIUM PROTOCOL 06/11/24 15:00 06/22/24 18:51 DC 06/19/24 06:32 25 MLS/HR Meropenem (Merrem 1gm) 1 gm Q12H IV 06/18/24 20:00 06/18/24 16:05 DC Meropenem (Merrem 1gm) 1 gm Q12H IV 06/19/24 14:30 06/22/24 18:51 DC 06/22/24 14:45 1 GM Meropenem (Merrem 500mg) 500 mg ONCE IV 06/18/24 16:00 06/18/24 16:01 DC Metronidazole/ Sodium Chloride 100 ml @ 100 mls/hr Q8H6 IVPB 06/09/24 14:00 06/19/24 13:59 DC 06/19/24 06:04 100 MLS/HR Midazolam HCl (Midazolam 100mg-0.9% NS 100ml) 100 ml PROTOCOL IV 06/09/24 15:30 06/12/24 10:33 DC 06/11/24 08:05 100 ML Midodrine (PROAMatine 5 MG TABLET) 10 mg TID PO 06/11/24 14:00 06/14/24 10:06 DC 06/14/24 07:47 10 MG Midodrine (PROAMatine 5 MG TABLET) 15 mg TID PO 06/14/24 14:00 06/22/24 18:51 DC 06/21/24 21:59 15 MG Morphine Sulfate (morPHINE 2MG SYG) 2 mg Q4HPRN PRN IVP SEVERE PAIN (7-10) 06/23/24 17:30 06/30/24 17:29 06/24/24 06:23 2 MG Multivitamins Therapeutic (Multivitamin Tablet) 1 tab DAILY PO 06/10/24 09:00 06/22/24 18:51 DC 06/22/24 09:13 1 TAB Norepinephrine Bitartrate (Norepineph 16 Mg/250ml NS Premix) HIGH ALERT Init... PROTOCOL IV 06/09/24 12:30 06/21/24 09:21 DC 06/13/24 19:21 16 MG Octreotide Acetate 1250 mcg/ Sodium Chloride 250 ml @ 0 mls/hr PROTOCOL IV 06/09/24 08:30 06/13/24 13:43 DC 06/11/24 13:17 5 MLS/HR Octreotide Acetate 500 mcg/ Sodium Chloride 100 ml @ 0 mls/hr PROTOCOL IV 06/09/24 04:30 06/09/24 08:13 DC 06/09/24 05:50 5 MLS/HR Ondansetron HCl (zoFRAN 4MG INJ) 4 mg Q4H PRN IV NAUSEA 06/09/24 18:00 07/09/24 17:59 Pantoprazole Sodium (PROTonix 40MG INJ) 40 mg BID IVP 06/11/24 21:00 06/22/24 18:51 DC 06/22/24 09:14 40 MG Pantoprazole Sodium 80 mg/ Sodium Chloride 100 ml @ 10 mls/hr Q10H IVP 06/09/24 04:00 06/11/24 13:24 DC 06/11/24 08:04 10 MLS/HR Pharmacy Profile Note (Pharmacy Communication) 1 each PROTOCOL PRN MISC ETOH Withdrawal Score changes 06/09/24 18:00 06/16/24 17:59 DC Phenylephrine HCl 10 mg/Sodium Chloride 250 ml @ 0 mls/hr PROTOCOL PRN IV PROTOCOL 06/09/24 07:00 06/22/24 18:51 DC 06/09/24 09:27 96 MLS/HR Potassium Chloride 20 meq/ Sodium Chloride 1,010 ml @ 0 mls/hr PROTOCOL IV 06/09/24 10:00 06/11/24 13:29 DC Potassium Chloride/Dextrose/ Sod Cl 1,000 ml @ 0 mls/hr AD IV 06/09/24 10:00 06/11/24 13:29 DC Potassium Chloride 100 ml @ 50 mls/hr AD PRN IV POTASSIUM PROTOCOL 06/09/24 07:00 06/09/24 08:34 DC Potassium Chloride 100 ml @ 50 mls/hr AD PRN IV POTASSIUM PROTOCOL 06/09/24 08:30 06/22/24 18:51 DC 06/19/24 06:31 50 MLS/HR Potassium Chloride 100 ml @ 100 mls/hr AD PRN IV POTASSIUM PROTOCOL 06/09/24 08:30 06/09/24 08:41 DC Potassium Chloride (K-Dur/Klor-Con 20meq) 20 meq AD PRN PO POTASSIUM PROTOCOL 06/09/24 08:30 06/22/24 18:51 DC Potassium Chloride (KCl 10% Elixir 20meq/15ml) 20 meq AD PRN PO POTASSIUM PROTOCOL 06/09/24 08:30 06/22/24 18:51 DC 06/17/24 08:17 20 MEQ Propofol (DIPRivan 1000MG/ 100ML) 1,000 mg PROTOCOL PRN IV SEDATION 06/14/24 17:30 06/21/24 09:21 DC Sodium Bicarbonate 150 meq/Dextrose 1,150 ml @ 150 mls/hr Q7H40M IVP 06/09/24 00:30 06/09/24 18:11 DC 06/09/24 01:18 150 MLS/HR Sodium Chloride 250 ml @ 0 mls/hr Q0M IV 06/19/24 05:00 06/21/24 09:21 DC 06/19/24 05:07 0 MLS/HR Sodium Chloride 500 ml @ 0 mls/hr Q0M IV 06/17/24 18:00 06/18/24 15:59 DC 06/17/24 18:26 500 MLS/HR Sodium Chloride 1,000 ml @ 75 mls/hr [id number] IV 06/17/24 18:00 06/18/24 15:59 DC 06/18/24 08:49 75 MLS/HR Sodium Chloride 1,000 ml @ 200 mls/hr PROTOCOL IV 06/09/24 10:00 06/11/24 13:29 DC Thiamine HCl (Vitamin B-1) 300 mg DAILY IV 06/09/24 18:00 06/22/24 18:51 DC 06/22/24 09:13 300 MG Trimethoprim/ Sulfamethoxazole (BactRIM DS) 1 tab BID PO 06/21/24 09:00 06/22/24 18:51 DC 06/22/24 09:13 1 TAB Vancomycin HCl 250 ml @ 125 mls/hr Q12H IV 06/09/24 22:00 06/10/24 21:50 DC 06/10/24 10:06 125 MLS/HR Vancomycin HCl 250 ml @ 125 mls/hr Q24H IV 06/11/24 22:00 06/12/24 21:39 DC 06/11/24 21:10 125 MLS/HR Vancomycin HCl 250 ml @ 125 mls/hr Q24H IV 06/13/24 22:00 06/18/24 15:59 DC 06/17/24 20:15 125 MLS/HR Vancomycin HCl (Vancomycin Protocol) 1 each AD IV 06/09/24 09:00 06/18/24 15:59 DC Vasopressin 20 units/Sodium Chloride 100 ml @ 0 mls/hr PROTOCOL IV 06/09/24 07:00 06/22/24 18:51 DC 06/09/24 08:20 9 MLS/HR Wound Care/ Dressing Products (Venelex Ointment) 1 APPL TID TP 06/14/24 21:00 07/14/24 20:59 06/23/24 13:53 1 GM Diagnostics / Radiology: [COPY/PASTE HERE IF NO REPORTS PLEASE DELETE SECTION] Assessment: Oropharyngeal dysphagia Feeding difficulties Gastric ulcer Acute blood loss anemia Cirrhosis Plan: Patient is not a candidate for PEG given known ascites- high risk for peritonitis. can consider surgery for open g tube; however, also high risk. Consider palliative/hospice Continue GI prophylaxis Avoid NSAIDs Antireflux measures Monitor H&H and transfuse as needed Call with questions, concerns or change in clinical status Patient to follow-up at clinic post discharge Thank you for this consult LISA FRASER Jun 24, 2024 08:19
[2024-06-24 08:35] VITALS: BP 130/80; PULSE 115; RESP 20; TEMP 99.9
--- NOTE | 2024-06-24 09:08 | NUR ---
PRIOR AUTH FOR HOSPICE PENDING Prior auth for hospice services still pending per Abhi. Locating PCP has been difficult
--- NOTE | 2024-06-24 09:19 | DS ---
Discharge Summary Hospital Course Summary: 53-year-old male who was admitted with diagnosis of septic shock and acute respiratory failure secondary to Gram neg pneumonia, hepatic encephalopathy from alcoholic liver cirrhosis, acute on chronic HF. Due to decompensation in the ER he was intubated and admitted to the ICU. Successfully extubated on 06/17/24. MBSS showing severe pharyngeal dysphasia. GI team does not recommend peg tube due to ascites. Recommended palliative vs hospice moving forward. Follow up visit patient was not able to be discharged yesterday due to family not arriving at [facility] to sign forms. Patient accepted for inpatient hospice with [facility] at [facility], bed has been assigned. DNR status. Continue comfort measures, continue medications per hospice MD. Case management coordinating for inpatient hospice. Patient maybe discharged and transferred to [facility]. Manager Family(s): Infectious disease specialist Dr. Mora Critical care team Dr. Mccollum Cardiology Dr. Hill Gastroenterology Dr. Jose Francisco Marie Hematology Dr. Contreras petroleum supply specialist Dr. Chahal Procedure(s): Central line placement to right internal jugular vein via intraoperative ultrasound guidance by [facility] AMIN/Dr. Chacko Assessment/Plan: ASSESSMENT: Acute respiratory failure secondary to Gram-negative pneumonia POA Septic shock secondary to Gram-negative pneumonia/hepatic encephalopathy/acute on chronic diastolic HF, resolved Alcohol withdrawals Bilateral lower lobe bacterial Gram-negative pneumonia, POA Severe pharyngeal dysphagia, POA Acute hepatic encephalopathy, resolved POA Combined alcoholic and fatty liver cirrhosis, POA MELD Score 19 points (19.6% estimated three month mortality) NSTEMI type 2, 2/2 supply and demand mismatch POA Acute on chronic Stage I Diastolic Heart Failure w/ EF of 40% POA Elevated troponin R/O ACS POA Elevated D-dimer of 3989, negative for DVT, Well score for PE 3 ( Moderate score) Metabolic acidosis POA Ascites Hepatomegaly Acute blood loss anemia POA Acute upper and lower GI bleed, POA Acute thrombocytopenia POA Acute on chronic diastolic CHF POA Hyperglycemia POA Hypomagnesemia POA Positive for THC POA Active alcohol drinker POA Acute complicated cystitis POA Hypertension POA acute GI bleed POA s/p EGD 06/13/24 non bleeding ulcer PLAN: continue admission in [facility] Successfully extubated 06/17. NPO Elected to remove NG tube Continue comfort measures started on 04/21/2025 Continue supplemental O2 to keep O2 saturations above 92%, currently satting 96% on 3L/nc Speech swallow study patient has failed 06/19/2024 Patient failed barium swallow test 06/20/2024 In reference to the ascites: Discussed with Adela RECIO, not a candidate for PEG tube placement recommends palliative vs hospice. Spoke to patient's sister Ely, regarding recommendations and she will talk to patient and patient's brother Continue NPO Continue tube feeding via ng tube Continue to follow critical care input and recommendation Repeated 2D echo LVEF is 50 to 55% no regional wall motion abnormalities noted in the views obtained. 06/18/[address] Mora for antimicrobial stewardship. Respiratory cultures positive for stenotrophomonas maltophilia Monitor and replace electrolytes Continue to work with physical therapy Monitor a.m. labs PRN Treatment - Add when necessary meds for nausea, vomiting, pain, constipat ion, insomnia. DVT/GI prophylaxis- Continue SCDs and Protonix at current doses. DNR code status Accepted to [facility] This document was generated in part using voice recognition software, occasional wrong word or sound alike substitutions may have occurred due to the inherent limitations of voice recognition software. Read the chart carefully and recogni ze using context, where the substitutions have occurred. Although every effort was made to edit the content, forensic artist and typing errors may occur Discharge Instructions: Transition care to hospice MD This case was discussed with Dr. Arango and above plan was formulated Home Medications: Reported Medications Folic Acid (Folvite) 1 Mg Tab, 1 TAB PO DAILY for 30 Days, #30 TAB 0 Refills 06/09/24 Losartan Potassium (Losartan Potassium) 25 Mg Tablet, 1 TAB PO DAILY for 30 Days, #30 TAB 0 Refills 06/09/24 Carvedilol (Carvedilol) 12.5 Mg Tablet, 1 TAB PO BID for 30 Days, #60 TAB 0 Refills 06/09/24 Furosemide (Furosemide) 40 Mg Tablet, 1 TAB PO DAILY for 30 Days, #30 TAB 0 Refills 06/09/24 Time spent arranging discharge: 31-60 minutes SHALOM ZAYAS APRN Jun 24, 2024 09:19
--- NOTE | 2024-06-24 09:29 | NUR ---
DCP: [facility] with [facility] [phone] Per Abhi, they recd prior auth for pt and he can transfer to [facility] this am. Sw notified family and pt's nurse Bebo Og that pt is ready for dc, DME at [facility]. CM made aware as well
--- NOTE | 2024-06-24 10:50 | NUR ---
REPORT CALLED TO URSULA CLAYTON RN FROM [facility]. WILL ADVISE WHEN EMS PICKS UP PATIENT.
--- NOTE | 2024-06-24 11:05 | NUR ---
EMS HERE AND FAMILY MEMBERS IN ROOM AND PT WAS PLACED ON STRETCHER AFTER MEDICATED WITH MORPHINE 2MG REQUESTED. [facility] STAFF CALLED AND NOTIFIED OF PT'S DISMISSAL AND EMS TAKING PT.
== END 2024-06-24 11:05 | disposition hospice, inpatient (51) | DRG 870 ==
LOC: EDH 23:06 → EDHIP 06-09 03:58 → 2BH 06-09 14:22 → 2DH 06-21 11:00
PROVIDERS: ADMIT Internal Medicine; ATTEND Internal Medicine
PROC: 5A1955Z Respiratory Ventilation, Greater than 96 Consecutive Hours (ICD-10-PCS; principal; 2024-06-09)
PROC: 0BH17EZ Insertion of Endotracheal Airway into Trachea, Via Natural or Artificial Opening (ICD-10-PCS; 2024-06-09)
PROC: 5A09357 Assistance with Respiratory Ventilation, Less than 24 Consecutive Hours, Continuous Positive Airway Pressure (ICD-10-PCS; 2024-06-09)
PROC: 02HV33Z Insertion of Infusion Device into Superior Vena Cava, Percutaneous Approach (ICD-10-PCS; 2024-06-09)
PROC: B548ZZA Ultrasonography of Superior Vena Cava, Guidance (ICD-10-PCS; 2024-06-09)
PROC: 0DJ08ZZ Inspection of Upper Intestinal Tract, Via Natural or Artificial Opening Endoscopic (ICD-10-PCS; 2024-06-13)
PROC: 5A09357 Assistance with Respiratory Ventilation, Less than 24 Consecutive Hours, Continuous Positive Airway Pressure (ICD-10-PCS; 2024-06-17)
PROC: 02HV33Z Insertion of Infusion Device into Superior Vena Cava, Percutaneous Approach (ICD-10-PCS; 2024-06-17)
PROC: B548ZZA Ultrasonography of Superior Vena Cava, Guidance (ICD-10-PCS; 2024-06-17)
PROC: 0W9G3ZZ Drainage of Peritoneal Cavity, Percutaneous Approach (ICD-10-PCS; 2024-06-22)
DX: A41.50 Gram-negative sepsis, unspecified (principal); E11.10 Type 2 diabetes mellitus with ketoacidosis without coma; J96.01 Acute respiratory failure with hypoxia; E43 Unspecified severe protein-calorie malnutrition; I21.A1 Myocardial infarction type 2; J15.69 Pneumonia due to other Gram-negative bacteria; J69.0 Pneumonitis due to inhalation of food and vomit; K25.4 Chronic or unspecified gastric ulcer with hemorrhage; R65.21 Severe sepsis with septic shock; I50.43 Acute on chronic combined systolic (congestive) and diastolic (congestive) heart failure; D62 Acute posthemorrhagic anemia; D61.818 Other pancytopenia; F10.239 Alcohol dependence with withdrawal, unspecified; K86.1 Other chronic pancreatitis; N30.00 Acute cystitis without hematuria; N17.9 Acute kidney failure, unspecified; Z20.822 Contact with and (suspected) exposure to COVID-19; Z66 Do not resuscitate; I11.0 Hypertensive heart disease with heart failure; E83.42 Hypomagnesemia; F12.10 Cannabis abuse, uncomplicated; D50.9 Iron deficiency anemia, unspecified; D63.8 Anemia in other chronic diseases classified elsewhere; E86.0 Dehydration; E87.6 Hypokalemia; E87.8 Other disorders of electrolyte and fluid balance, not elsewhere classified; E88.09 Other disorders of plasma-protein metabolism, not elsewhere classified; K70.31 Alcoholic cirrhosis of liver with ascites; K76.82 Hepatic encephalopathy; K76.0 Fatty (change of) liver, not elsewhere classified; L89.322 Pressure ulcer of left buttock, stage 2; L89.312 Pressure ulcer of right buttock, stage 2; Z74.01 Bed confinement status; Z79.899 Other long term (current) drug therapy; Z68.26 Body mass index [BMI] 26.0-26.9, adult
CPT/HCPCS: 31500; 31624; 36415; 36556; 36600; 49083; 70450; 71045; 71270; 74018; 74176; 74230; 76700; 80048; 80053; 80061; 80074; 80202; 80305; 81001; 82010; 82105; 82140; 82270; 82306; 82378; 82435; 82550; 82607; 82803; 82947; 82948; 83036; 83540; 83550; 83605; 83615; 83735; 83880; 84132; 84145; 84207; 84295; 84425; 84443; 84484; 85014; 85018; 85025; 85027; 85378; 85384; 85610; 85651; 85730; 86022; 86038; 86140; 86215; 86235; 86316; 86431; 86701; 86850; 86900; 86901; 87040; 87071; 87086; 87186; 87205; 87390; 87635; 87804; 89051; 92610; 92611; 93005; 93306; 93308; 93970; 94002; 94003; 94150; 94640; 94660; 94664; 94667; 94668; 99152; 99285; C1729; C1894; G0378; G0481; J0692; J1644; J1815; J1940; J2060; J2185; J2250; J2270; J2354; J2371; J2470; J2704; J3010; J3360; J3370; J3411; J3475; J3480; J3490; J7030; J7050; J7070; P9045; P9047; Q9963; Q9967; A4600; G0500